=== PATIENT | female | born 1935 | race Caucasian/White ===

== ENCOUNTER 2017-01-08 11:26 | Emergency (ER) | payer MEDICARE, BC ==
[2017-01-08] MEDS ORDERED: Sodium Chloride 0.9% 10 ML Syringe FLUSH PRN (11:59)
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
[2017-01-08 14:05] VITALS: BP 135/60
--- NOTE | 2017-01-10 10:33 | CR ---
Chest: Portable view of the chest was obtained. Comparison: Previous chest x-ray of 04/14/16. Heart size and mediastinum are within normal limits for portable technique. No acute infiltrates are seen. Mild scoliosis is noted within the spine. Mild degenerative change is also scattered within the spine. Impression: 1. Incidental findings. Nothing acute is identified on portable chest x-ray. Diagnostic code #2
--- NOTE | 2017-01-10 10:33 | CT ---
CT cervical spine Technique: Multiple axial sections were obtained from above C1 inferiorly to the bottom of T2. Reconstructed sagittal and coronal images were reviewed. Findings: Diffuse disc space narrowing seen throughout the cervical spine. Mild spondylolisthesis noted at C6-C7 compatible with degenerative apophyseal change. Other degenerative apophyseal changes scattered throughout the cervical spine. Mild diffuse posterior and anterior osteophytes are seen. Incidental degenerative disc calcification noted at C2-C3, C3-C4 and C4-C5. Posterior skull base appears intact. Mild degenerative change noted between the dens and anterior arch of C1. Moderate to severe neural foraminal stenosis seen on both sides at C3-C4. Mild left-sided neural foraminal stenosis noted at C4-C5 with moderate right-sided neural foraminal stenosis noted at C4-C5. Moderate right-sided neural foraminal stenosis noted at C5-C6. Mild bilateral neural foraminal stenosis noted at C6-C7. Other neural foramina are felt to be fairly well patent. Vertebral bodies and posterior arches show no fracture. Impression: 1. Degenerative change as noted above. No acute abnormality is identified on CT study of the cervical spine. Diagnostic code #2 I agree with preliminary report issued by [employer] (preliminary report dictated on 01/08/17, 1:50 PM Central Time)
--- NOTE | 2017-01-10 10:33 | CT ---
Head CT Technique: Multiple axial sections through the brain were obtained. Intravenous contrast was not utilized. Comparison: No previous intracranial imaging. Findings: Ventricles along with basal cisterns and sulci over the convexities are mildly prominent. 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 No other abnormal parenchymal densities are seen. No evidence of intracranial hemorrhage. No midline shift or mass effect is seen. Atherosclerotic change is noted within the carotid siphon and vertebral vessels. Visualized sinuses are clear. No acute calvarial abnormality is seen. Impression: 1. Senescent change as described above. No acute intracranial abnormality is identified on noncontrast head CT study. Diagnostic code #2 I agree with preliminary report issued by [employer] (preliminary report dictated on 01/08/17, 1:48 PM Central Time)
== END 2017-01-08 14:00 | disposition home or self-care (01) ==
LOC: JD.ED 11:26
DX: R42 Dizziness and giddiness (principal); N39.0 Urinary tract infection, site not specified; E78.00 Pure hypercholesterolemia, unspecified; I25.2 Old myocardial infarction; I10 Essential (primary) hypertension; J45.909 Unspecified asthma, uncomplicated; F41.9 Anxiety disorder, unspecified; Z91.018 Allergy to other foods; Z88.8 Allergy status to other drugs, medicaments and biological substances; Z79.82 Long term (current) use of aspirin; Z79.899 Other long term (current) drug therapy
CPT/HCPCS: 36415; 70450; 71010; 72125; 80053; 81001; 84484; 85025; 87086; 93005; 99285; J7050; 99284

== ENCOUNTER 2017-11-18 15:15 | Inpatient (IN) | payer MEDICARE, BC ==
[2017-11-18] MEDS ORDERED: Benzonatate 100 MG Cap PO ONE (16:14)
[2017-11-18] MEDS ORDERED: Doxycycline 100 MG Cap PO ONE (16:14)
[2017-11-18] MEDS ORDERED: Dexamethasone 4 MG/ML 5 ML MDV IV ONE (16:14)
--- NOTE | 2017-11-18 16:15 | EDM.PDOC ---
ED HPI GENERAL MEDICAL PROBLEM - General Chief Complaint: Respiratory Problem Stated Complaint: TROUBLE BREATHING Time Seen by Provider: 11/18/17 15:24 Source of Information: Reports: Patient History Limitations: Reports: No Limitations - History of Present Illness INITIAL COMMENTS - FREE TEXT/NARRATIVE: 82 y/o F with hx asthma presents from clinic with cough/SOB/hypoxia. Daughter states she's been ill for at least 2 weeks with cough. Just isn't getting better. Has been using albuterol at home but now is out of it. No known fever. She feels generally weak. Shortness of breath worse with activity. Has dry cough. No chest pain. Mild rhinorrhea. No sore throat. No abd pain/vomiting/ diarrhea. No known sick contacts. Was seen at clinic and noted to be hypoxic with room air SpO2 in 80's. Given duonebs with improvement but was persistently hyopxic so sent here. 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: Reports: Other (see below) Other 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: duoneb at clinic - Related Data Allergies Allergy/AdvReac Type Severity Reaction Status Date / Time latex Allergy Rash Verified 01/08/17 11:43 wheat Allergy Other Verified 01/08/17 11:43 atorvastatin calcium AdvReac Muscle Verified 01/08/17 11:43 [From Lipitor] Aches doxycycline AdvReac Vomiting Verified 01/08/17 11:43 rosuvastatin calcium AdvReac Muscle Verified 01/08/17 11:43 [From Crestor] Aches simvastatin [From Zocor] AdvReac Muscle Verified 01/08/17 11:43 Aches Home Meds: Home Meds Aspirin [Low Dose Aspirin EC] 81 mg PO DAILY 02/27/14 [History] Denosumab [Prolia] 60 mg SQ ASDIRECTED 02/27/14 [History] Ubidecarenone [Coenzyme Q10] 100 mg PO DAILY 02/27/14 [History] Cholecalciferol (Vitamin D3) [Vitamin D3] 1,000 units PO DAILY 10/11/14 [History ] Acetaminophen 1,500 mg PO DAILY PRN 03/28/15 [History] Vitamin B Complex [B Complex] 1 mg PO DAILY 03/28/15 [History] Multivitamins,Therapeutic [Thera] 1 each PO WITHBREAKFAST tablet 04/03/15 [Rx] Ibuprofen 400 mg PO Q6H PRN 01/08/17 [History] Vitamin A Palmitate [Vitamin A] 4,000 unit PO DAILY 01/08/17 [History] Albuterol [Ventolin HFA] 2 puff INH Q4H PRN 11/18/17 [History] Benzonatate [Tessalon Perle] 100 mg PO TID PRN 11/18/17 [History] Calcium Carbonate [Calcium] 600 mg PO DAILY 11/18/17 [History] Fish Oil/[place]fe[place]-3 Fatty Acids [Fish Oil 1,000 MG] 1 each PO DAILY 11/18/17 [ History] Gabapentin [Neurontin] 300 mg PO BID 11/18/17 [History] Losartan Potassium 50 mg PO DAILY 11/18/17 [History] Nitroglycerin 0.4 mg SL ASDIRECTED PRN 11/18/17 [History] Primidone [Mysoline] 100 mg PO BID 11/18/17 [History] Past Medical History HEENT History: Reports: Cataract Other HEENT History: needs glasses for reading Cardiovascular History: Reports: High Cholesterol, Hypertension, SD Other Cardiovascular History: with stents Respiratory History: Reports: Asthma, Pneumonia, Recurrent, Sleep Apnea, Other ( See Below) Other Respiratory History: does not use any c-pap at home Gastrointestinal History: Reports: Chronic Constipation Other Gastrointestinal History: stool softener and laxative she takes at home bid 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 Neurological History: Reports: Other (See Below) Other Neuro History: pt states she has tremors Psychiatric History: Reports: Anxiety Other Hematologic History: SPLEEN REMOVED IN 1989 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 Other Oncologic History: SKIN CA ON NECK Other Dermatologic History: itchy bumps on skin. Pt thinks it is dermatitis - Infectious Disease History Infectious Disease History: Reports: Measles - Past Surgical History HEENT Surgical History: Reports: Cataract Surgery Cardiovascular Surgical History: Reports: Other (See Below) Musculoskeletal Surgical History: Reports: Knee Replacement Social & Family History - Family History Family Medical History: Noncontributory - Tobacco Use Smoking Status *Q: Never Smoker Second Hand Smoke Exposure: No - Caffeine Use Caffeine Use: Reports: Coffee, Tea Other Caffeine Use: decaff - Recreational Drug Use Recreational Drug Use: No ED ROS GENERAL - Review of Systems Review Of Systems: See Below Constitutional: Reports: Malaise, Weakness, Fatigue. Denies: Fever HEENT: Reports: Rhinitis Respiratory: Reports: Shortness of Breath, Cough Cardiovascular: Denies: Chest Pain Endocrine: Reports: No Symptoms GI/Abdominal: Denies: Abdominal Pain : Reports: No Symptoms Musculoskeletal: Reports: No Symptoms Skin: Reports: No Symptoms Neurological: Reports: No Symptoms ED EXAM, GENERAL - Physical Exam Exam: See Below Exam Limited By: No Limitations General Appearance: Alert, WD/WN, No Apparent Distress Eye Exam: Bilateral Eye: Normal Inspection, PERRL Ears: Normal External Exam Nose: Normal Inspection Throat/Mouth: Normal Inspection, Normal Oropharynx, Normal Voice, No Airway Compromise Head: Atraumatic, Normocephalic Neck: Normal Inspection, Supple Respiratory/Chest: No Respiratory Distress, Lungs Clear, Normal Breath Sounds, No Accessory Muscle Use, Chest Non-Tender, Other (+dry cough ) Cardiovascular: Normal Peripheral Pulses, Regular Rate, Rhythm, No Murmur GI/Abdominal: Soft, Non-Tender, No Distention. No: Rebound Back Exam: Normal Inspection Extremities: Normal Inspection. No: Pedal Edema Neurological: Alert, Oriented, Normal Cognition Psychiatric: Normal Affect, Normal Mood Skin Exam: Warm, Dry, Intact, Normal Color, No Rash Course - Vital Signs Last Recorded V/S: Last Vital Signs Temp 38.0 C 11/18/17 19:08 Pulse 79 11/18/17 19:00 Resp 22 H 11/18/17 19:00 BP 176/76 H 11/18/17 15:28 Pulse Ox 94 L 11/18/17 19:00 - Orders/Labs/Meds Orders: Active Orders 24 hr Category Date Time Status EKG Documentation Completion [RC] ASDIRECTED Care 11/18/17 15:37 Active Chest 1V Frontal [CR] Stat Exams 11/18/17 16:05 Taken UA W/MICROSCOPIC [URIN] Stat Lab 11/18/17 18:45 Results Potassium Chloride [KCl 10 MEQ in Water 100 ML] 10 meq Med 11/18/17 17:30 Active Premix Bag 1 bag IV Q1H EKG 12 Lead [EK] Stat Ther 11/18/17 15:37 Ordered Medication Orders Potassium Chloride 10 meq/ (Premix) 100 mls @ 100 mls/hr IV Q1H ROBE Stop: 11/18/17 21:29 Last Admin: 11/18/17 19:08 Dose: 75 mls/hr Infusion: 11/18/17 18:56 Dose: 75 mls/hr Infusion: 11/18/17 17:46 Dose: 75 mls/hr Admin: 11/18/17 17:38 Dose: 100 mls/hr Labs: Laboratory Tests 11/18/17 11/18/17 11/18/17 Range/Units 15:40 15:40 15:40 WBC 10.06 H (3.98-10.04) K/mm3 RBC 4.34 (3.98-5.22) M/mm3 Hgb 13.0 (11.2-15.7) gm/L Hct 39.4 (34.1-44.9) % MCV 90.8 (79.4-94.8) fl MCH 30.0 (25.6-32.2) pg MCHC 33.0 (32.2-35.5) g/dl RDW Std Deviation 48.2 H (36.4-46.3) fL Plt Count 265 (182-369) K/mm3 MPV 10.8 (9.4-12.3) fl Neut % (Auto) 14.0 L (34.0-71.1) % Lymph % (Auto) 33.2 (19.3-51.7) % [place] % (Auto) 50.6 H (4.7-12.5) % Eos % (Auto) 1.7 (0.7-5.8) Baso % (Auto) 0.3 (0.1-1.2) % Neut # (Auto) 1.41 L (1.56-6.13) K/mm3 Lymph # (Auto) 3.34 (1.18-3.74) K/mm3 [place] # (Auto) 5.09 H (0.24-0.36) K/mm3 Eos # (Auto) 0.17 (0.04-0.36) K/mm3 Baso # (Auto) 0.03 (0.01-0.08) K/mm3 Manual Slide Review Abnormal smear Sodium 132 L (136-145) mEq/L Potassium 2.6 L (3.5-5.1) mEq/L Chloride 92 L (98-107) mEq/L Carbon Dioxide 28 (21-32) mEq/L Anion Gap 14.6 (5-15) BUN 8 (7-18) mg/dL Creatinine 0.6 (0.55-1.02) mg/dL Est Cr Clr Drug Dosing 51.03 mL/min Estimated GFR (MDRD) > 60 (>60) mL/min BUN/Creatinine Ratio 13.3 L (14-18) Glucose 111 (83-115) mg/dL Calcium 8.9 (8.5-10.1) mg/dL Magnesium 1.8 (1.8-2.4) mg/dl Total Bilirubin 0.2 (0.2-1.0) mg/dL AST 28 (15-37) U/L ALT 33 (14-59) U/L Alkaline Phosphatase 68 (46-116) U/L Troponin I < 0.017 (0.00-0.056) ng/mL Total Protein 7.7 (6.4-8.2) g/dl Albumin 3.6 (3.4-5.0) g/dl Globulin 4.1 gm/dL Albumin/Globulin Ratio 0.9 L (1-2) Urine Color (Yellow) Urine Appearance (Clear) Urine pH (5.0-8.0) Ur Specific [place] (1.005-1.030) Urine Protein (Negative) Urine Glucose (UA) (Negative) Urine Ketones (Negative) Urine Occult Blood (Negative) Urine Nitrite (Negative) Urine Bilirubin (Negative) Urine Urobilinogen (0.2-1.0) Ur Leukocyte Esterase (Negative) 11/18/17 Range/Units 18:45 WBC (3.98-10.04) K/mm3 RBC (3.98-5.22) M/mm3 Hgb (11.2-15.7) gm/L Hct (34.1-44.9) % MCV (79.4-94.8) fl MCH (25.6-32.2) pg MCHC (32.2-35.5) g/dl RDW Std Deviation (36.4-46.3) fL Plt Count (182-369) K/mm3 MPV (9.4-12.3) fl Neut % (Auto) (34.0-71.1) % Lymph % (Auto) (19.3-51.7) % [place] % (Auto) (4.7-12.5) % Eos % (Auto) (0.7-5.8) Baso % (Auto) (0.1-1.2) % Neut # (Auto) (1.56-6.13) K/mm3 Lymph # (Auto) (1.18-3.74) K/mm3 [place] # (Auto) (0.24-0.36) K/mm3 Eos # (Auto) (0.04-0.36) K/mm3 Baso # (Auto) (0.01-0.08) K/mm3 Manual Slide Review Sodium (136-145) mEq/L Potassium (3.5-5.1) mEq/L Chloride (98-107) mEq/L Carbon Dioxide (21-32) mEq/L Anion Gap (5-15) BUN (7-18) mg/dL Creatinine (0.55-1.02) mg/dL Est Cr Clr Drug Dosing mL/min Estimated GFR (MDRD) (>60) mL/min BUN/Creatinine Ratio (14-18) Glucose (83-115) mg/dL Calcium (8.5-10.1) mg/dL Magnesium (1.8-2.4) mg/dl Total Bilirubin (0.2-1.0) mg/dL AST (15-37) U/L ALT (14-59) U/L Alkaline Phosphatase (46-116) U/L Troponin I (0.00-0.056) ng/mL Total Protein (6.4-8.2) g/dl Albumin (3.4-5.0) g/dl Globulin gm/dL Albumin/Globulin Ratio (1-2) Urine Color Yellow (Yellow) Urine Appearance Clear (Clear) Urine pH 6.0 (5.0-8.0) Ur Specific [place] 1.010 (1.005-1.030) Urine Protein Negative (Negative) Urine Glucose (UA) Negative (Negative) Urine Ketones 2+ H (Negative) Urine Occult Blood Negative (Negative) Urine Nitrite Negative (Negative) Urine Bilirubin Negative (Negative) Urine Urobilinogen 0.2 (0.2-1.0) Ur Leukocyte Esterase Negative (Negative) Meds: Medications Generic Name Dose Route Start Last Admin Trade Name Freq PRN Reason Stop Dose Admin Potassium Chloride 10 meq/ 100 mls @ 100 mls/hr 11/18/17 17:30 11/18/17 19:08 Premix IV 11/18/17 21:29 75 mls/hr Q1H ROBE Administration Discontinued Medications Generic Name Dose Route Start Last Admin Trade Name Alexa PRN Reason Stop Dose Admin Benzonatate 200 mg 11/18/17 16:14 11/18/17 16:23 Tessalon Perles PO 11/18/17 16:15 200 mg ONETIME ONE Administration Dexamethasone 10 mg 11/18/17 16:14 11/18/17 16:23 Dexamethasone IV 11/18/17 16:15 10 mg ONETIME ONE Administration Doxycycline Hyclate 100 mg 11/18/17 16:14 11/18/17 16:23 Vibramycin PO 11/18/17 16:15 100 mg ONETIME ONE Administration Ibuprofen 600 mg 11/18/17 19:00 11/18/17 19:08 Motrin PO 11/18/17 19:01 600 mg ONETIME ONE Administration Potassium Chloride 40 meq 11/18/17 17:17 11/18/17 17:38 Klor-Con M20 PO 11/18/17 17:18 40 meq ONETIME ONE Administration - Re-Assessments/Exams Free Text/Narrative Re-Assessment/Exam: 11/18/17 16:35 Reportedly hypoxic in clinic but SpO2 here in low 90's on RA. No distress. Suspect bronchitis given duration and severity of symptoms, provoking asthma exacerbation. Will give doxycycline and steroids and reeval after labs/xr. XR shows increased haziness at R base, atelectasis vs. early pneumonia. Will treat with antibiotics given symptoms. EKG shows NSR with no significant ST/T abnormality. 11/18/17 19:[address] Vázquez who agrees to admit the patient. Departure - Departure Time of Disposition: 19:28 Disposition: Admitted As Inpatient 65 Clinical Impression: Acute hypoxemic respiratory failure, Influenza B, Hypokalemia Asthma exacerbation Qualifiers: Asthma severity: mild Asthma persistence: intermittent Qualified Code(s): J45.21 - Mild intermittent asthma with (acute) exacerbation - Discharge Information Referrals: PCP,Unknown [Primary Care Provider] - Forms: ED Department Discharge - My Orders Last 24 Hours: My Active Orders 11/18/17 15:37 EKG Documentation Completion [RC] ASDIRECTED EKG 12 Lead [EK] Stat 11/18/17 16:05 Chest 1V Frontal [CR] Stat 11/18/17 17:30 Potassium Chloride [KCl 10 MEQ in Water 100 ML] 10 meq Premix Bag 1 bag IV Q1H 11/18/17 18:45 UA W/MICROSCOPIC [URIN] Stat - Assessment/Plan Last 24 Hours: My Active Orders 11/18/17 15:37 EKG Documentation Completion [RC] ASDIRECTED EKG 12 Lead [EK] Stat 11/18/17 16:05 Chest 1V Frontal [CR] Stat 11/18/17 17:30 Potassium Chloride [KCl 10 MEQ in Water 100 ML] 10 meq Premix Bag 1 bag IV Q1H 11/18/17 18:45 UA W/MICROSCOPIC [URIN] Stat
[2017-11-18] MEDS ORDERED: Potassium Chloride 20 MEQ Tab.ER PO ONE (17:17)
[2017-11-18] MEDS: Potassium Chloride 10 MEQ in Premix Bag 1 BAG IV SCH ×4 (17:38→23:29)
[2017-11-18] MEDS ORDERED: Ibuprofen 600 MG Tab PO ONE (19:00)
[2017-11-18] MEDS ORDERED: Polyethylene Glycol 3350 Powder 17 GM Packet PO PRN (19:21)
[2017-11-18] MEDS ORDERED: Acetaminophen/HYDROcodone 325-5 MG Tab PO PRN (19:21)
[2017-11-18] MEDS ORDERED: Docusate Sodium 100 MG Cap PO PRN (19:21)
[2017-11-18] MEDS ORDERED: Metoprolol Tartrate 5 MG/5 ML SDV IVPUSH PRN (19:21)
[2017-11-18] MEDS ORDERED: LORazepam 2 MG/ML SDV IVPUSH PRN (19:21)
[2017-11-18] MEDS ORDERED: Ondansetron 4 MG/2 ML SDV IV PRN (19:21)
[2017-11-18] MEDS ORDERED: Albuterol/Ipratropium 3.0-0.5 MG/3 ML Neb Soln NEB PRN (19:21)
[2017-11-18] MEDS ORDERED: Promethazine 6.25 MG in Sodium Chloride 0.9% 50 ML IV PRN (19:21)
[2017-11-18] MEDS ORDERED: HYDROmorphone 1 MG/ML Syringe IVPUSH PRN (19:21)
[2017-11-18] MEDS ORDERED: Azithromycin 500 MG in Sodium Chloride 0.9% 250 ML IV ONE (19:28)
[2017-11-18] MEDS ORDERED: Denosumab 60 MG/1 ML Syringe SUBCUT SCH (19:30)
--- NOTE | 2017-11-18 19:45 | PCM.HP ---
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 However per ED notes, these have been going on for 2 weeks now. She reports sick contact in the family with her . She denies any fevers or chills but feels weak. Her symptoms are aggravated by activity. At the clinic she was found with low O2 sat on room air in the 80s. She received initial treatment but her hypoxia did not improve. Therefore she was sent over here to the emergency department for further evaluation. Her initial workup in ED shows a CBC remarkable for WBC of 10.6, RDW of 48.2, neutrophils of 14% and monocytes of 50.6%. Her chemistry is remarkable for sodium of 132, potassium of 2.6, and chloride of 92. Her UA is negative for UTI. Her chest x-ray shows increased opacification at the right base. Her influenza screening is positive for type B. Patient is being admitted for treatment of acute viral illness and lingering bronchitis. She is CPR only. - Related Data Allergies/Adverse Reactions: Allergies Allergy/AdvReac Type Severity Reaction Status Date / Time latex Allergy Rash Verified 11/19/17 01:34 wheat Allergy Other Verified 11/19/17 01:34 atorvastatin calcium AdvReac Muscle Verified 11/19/17 01:34 [From Lipitor] Aches doxycycline AdvReac Vomiting Verified 11/19/17 01:34 rosuvastatin calcium AdvReac Muscle Verified 11/19/17 01:34 [From Crestor] Aches simvastatin [From Zocor] AdvReac Muscle Verified 11/19/17 01:34 Aches Home Medications: Home Meds Aspirin [Low Dose Aspirin EC] 81 mg PO DAILY 02/27/14 [History] Denosumab [Prolia] 60 mg SQ ASDIRECTED 02/27/14 [History] Ubidecarenone [Coenzyme Q10] 100 mg PO DAILY 02/27/14 [History] Cholecalciferol (Vitamin D3) [Vitamin D3] 1,000 units PO DAILY 10/11/14 [History ] Acetaminophen 1,500 mg PO DAILY PRN 03/28/15 [History] Vitamin B Complex [B Complex] 1 mg PO DAILY 03/28/15 [History] Multivitamins,Therapeutic [Thera] 1 each PO WITHBREAKFAST tablet 04/03/15 [Rx] Ibuprofen 400 mg PO Q6H PRN 01/08/17 [History] Vitamin A Palmitate [Vitamin A] 4,000 unit PO DAILY 01/08/17 [History] Albuterol [Ventolin HFA] 2 puff INH Q4H PRN 11/18/17 [History] Benzonatate [Tessalon Perle] 100 mg PO TID PRN 11/18/17 [History] Calcium Carbonate [Calcium] 600 mg PO DAILY 11/18/17 [History] Fish Oil/[place]-3 Fatty Acids [Fish Oil 1,000 MG] 1 each PO DAILY 11/18/17 [ History] Gabapentin [Neurontin] 300 mg PO BID 11/18/17 [History] Losartan Potassium 50 mg PO DAILY 11/18/17 [History] Nitroglycerin 0.4 mg SL ASDIRECTED PRN 11/18/17 [History] Primidone [Mysoline] 100 mg PO BID 11/18/17 [History] Past Medical History HEENT History: Reports: Cataract Other HEENT History: needs glasses for reading Cardiovascular History: Reports: High Cholesterol, Hypertension, DE Other Cardiovascular History: with stents Respiratory History: Reports: Asthma, Pneumonia, Recurrent, Sleep Apnea, Other ( See Below) Other Respiratory History: does not use any c-pap at home Gastrointestinal History: Reports: Chronic Constipation Other Gastrointestinal History: stool softener and laxative she takes at home bid Other Genitourinary History: 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 Neurological History: Reports: Other (See Below) Other Neuro History: pt states she has tremors Psychiatric History: Reports: Anxiety Other Hematologic History: SPLEEN REMOVED IN 1989 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 Other Oncologic History: SKIN CA ON NECK Other Dermatologic History: itchy bumps on skin. Pt thinks it is dermatitis - Infectious Disease History Infectious Disease History: Reports: Measles - Past Surgical History HEENT Surgical History: Reports: Cataract Surgery Cardiovascular Surgical History: Reports: Other (See Below) Musculoskeletal Surgical History: Reports: Knee Replacement Social & Family History - Family History Family Medical History: Noncontributory - Tobacco Use Smoking Status *Q: Never Smoker Second Hand Smoke Exposure: No - Caffeine Use Caffeine Use: Reports: Coffee, Tea Other Caffeine Use: decaff - Recreational Drug Use Recreational Drug Use: No H&P Review of Systems - Review of Systems: Review Of Systems: See Below General: Reports: Malaise, Weakness, Fatigue. Denies: Fever, Chills HEENT: Reports: Rhinitis. Denies: Headaches, Hearing Changes, Post Nasal Drip, Sinus Congestion, Sore Throat, Visual Changes Pulmonary: Reports: Shortness of Breath, Cough. Denies: Wheezing, Pleuritic Chest Pain, Sputum Cardiovascular: Denies: Chest Pain, Palpitations, Dyspnea on Exertion, Lightheadedness Gastrointestinal: Reports: Flatus. Denies: Abdominal Pain, Constipation, Diarrhea, Decreased Appetite, Difficulty Swallowing, Nausea, Vomiting Genitourinary: Reports: No Symptoms Musculoskeletal: Reports: No Symptoms Skin: Denies: Cyanosis, Jaundice, Mottled, Pallor, Diaphoresis, Bruising, Pruritis, Rash, Erythema, Change in Color Psychiatric: Denies: Confusion, Depression, Anxiety, Agitation, Hallucinations, Suicidal Ideation Neurological: Reports: Weakness. Denies: Dizziness, Headache, Numbness, Paresthesia, Seizure, Syncope, Tremors, Trouble Speaking, Difficulty Walking, Change in Speech, Gait Disturbance Hematologic/Lymphatic: Reports: No Symptoms Immunologic: Reports: No Symptoms Exam - Exam Exam: See Below - Vital Signs Vital Signs: Last Vital Signs Temp 38.0 C 11/18/17 19:08 Pulse 79 11/18/17 19:00 Resp 22 H 11/18/17 19:00 BP 176/76 H 11/18/17 15:28 Pulse Ox 94 L 11/18/17 19:00 Weight: 62.142 kg - Exam General: Alert, Oriented, Cooperative, Mild Distress HEENT: Conjunctiva Clear, EACs Clear, EOMI, Mucosa Moist & [place], Nares Patent, Posterior Pharynx Clear, Pupils Equal Neck: Supple, Trachea Midline, +2 Carotid Pulse wo Bruit Lungs: Clear to Auscultation, Normal Respiratory Effort Cardiovascular: Regular Rate, Regular Rhythm GI/Abdominal Exam: Normal Bowel Sounds, Soft, Non-Tender, No Organomegaly, No Distention, No Abnormal Bruit, No Mass (Female) Exam: Deferred Rectal (Female) Exam: Deferred Back Exam: Normal Inspection, Decreased Range of Motion Extremities: Normal Inspection, Normal Range of Motion, Non-Tender, No Pedal Edema, Normal Capillary Refill Peripheral Pulses: 2+: Dorsalis Pedis (L), Dorsalis Pedis (R) Skin: Warm, Dry, Intact Neuro Extensive - Mental Status: Oriented x3, Normal Cognition, Memory Intact Neuro Extensive - Motor, Sensory, Reflexes: CN II-XII Intact, Abnormal Gait, Tremor Psychiatric: Alert, Normal Affect, Normal Mood - Patient Data Lab Results Last 24 hrs: Laboratory Results - last 24 hr 11/18/17 11/18/17 11/18/17 Range/Units 15:40 15:40 15:40 WBC 10.06 H (3.98-10.04) K/mm3 RBC 4.34 (3.98-5.22) M/mm3 Hgb 13.0 (11.2-15.7) gm/L Hct 39.4 (34.1-44.9) % MCV 90.8 (79.4-94.8) fl MCH 30.0 (25.6-32.2) pg MCHC 33.0 (32.2-35.5) g/dl RDW Std Deviation 48.2 H (36.4-46.3) fL Plt Count 265 (182-369) K/mm3 MPV 10.8 (9.4-12.3) fl Neut % (Auto) 14.0 L (34.0-71.1) % Lymph % (Auto) 33.2 (19.3-51.7) % [place] % (Auto) 50.6 H (4.7-12.5) % Eos % (Auto) 1.7 (0.7-5.8) Baso % (Auto) 0.3 (0.1-1.2) % Neut # (Auto) 1.41 L (1.56-6.13) K/mm3 Lymph # (Auto) 3.34 (1.18-3.74) K/mm3 [place] # (Auto) 5.09 H (0.24-0.36) K/mm3 Eos # (Auto) 0.17 (0.04-0.36) K/mm3 Baso # (Auto) 0.03 (0.01-0.08) K/mm3 Manual Slide Review Abnormal smear Sodium 132 L (136-145) mEq/L Potassium 2.6 L (3.5-5.1) mEq/L Chloride 92 L (98-107) mEq/L Carbon Dioxide 28 (21-32) mEq/L Anion Gap 14.6 (5-15) BUN 8 (7-18) mg/dL Creatinine 0.6 (0.55-1.02) mg/dL Est Cr Clr Drug Dosing 51.03 mL/min Estimated GFR (MDRD) > 60 (>60) mL/min BUN/Creatinine Ratio 13.3 L (14-18) Glucose 111 (83-115) mg/dL Calcium 8.9 (8.5-10.1) mg/dL Magnesium 1.8 (1.8-2.4) mg/dl Total Bilirubin 0.2 (0.2-1.0) mg/dL AST 28 (15-37) U/L ALT 33 (14-59) U/L Alkaline Phosphatase 68 (46-116) U/L Troponin I < 0.017 (0.00-0.056) ng/mL Total Protein 7.7 (6.4-8.2) g/dl Albumin 3.6 (3.4-5.0) g/dl Globulin 4.1 gm/dL Albumin/Globulin Ratio 0.9 L (1-2) Urine Color (Yellow) Urine Appearance (Clear) Urine pH (5.0-8.0) Ur Specific [place] (1.005-1.030) Urine Protein (Negative) Urine Glucose (UA) (Negative) Urine Ketones (Negative) Urine Occult Blood (Negative) Urine Nitrite (Negative) Urine Bilirubin (Negative) Urine Urobilinogen (0.2-1.0) Ur Leukocyte Esterase (Negative) Urine RBC (0-5) /hpf Urine WBC (0-5) /hpf Ur Epithelial Cells (0-5) /hpf Urine Bacteria (FEW) /hpf Urine Mucus (FEW) /hpf 11/18/17 Range/Units 18:45 WBC (3.98-10.04) K/mm3 RBC (3.98-5.22) M/mm3 Hgb (11.2-15.7) gm/L Hct (34.1-44.9) % MCV (79.4-94.8) fl MCH (25.6-32.2) pg MCHC (32.2-35.5) g/dl RDW Std Deviation (36.4-46.3) fL Plt Count (182-369) K/mm3 MPV (9.4-12.3) fl Neut % (Auto) (34.0-71.1) % Lymph % (Auto) (19.3-51.7) % [place] % (Auto) (4.7-12.5) % Eos % (Auto) (0.7-5.8) Baso % (Auto) (0.1-1.2) % Neut # (Auto) (1.56-6.13) K/mm3 Lymph # (Auto) (1.18-3.74) K/mm3 [place] # (Auto) (0.24-0.36) K/mm3 Eos # (Auto) (0.04-0.36) K/mm3 Baso # (Auto) (0.01-0.08) K/mm3 Manual Slide Review Sodium (136-145) mEq/L Potassium (3.5-5.1) mEq/L Chloride (98-107) mEq/L Carbon Dioxide (21-32) mEq/L Anion Gap (5-15) BUN (7-18) mg/dL Creatinine (0.55-1.02) mg/dL Est Cr Clr Drug Dosing mL/min Estimated GFR (MDRD) (>60) mL/min BUN/Creatinine Ratio (14-18) Glucose (83-115) mg/dL Calcium (8.5-10.1) mg/dL Magnesium (1.8-2.4) mg/dl Total Bilirubin (0.2-1.0) mg/dL AST (15-37) U/L ALT (14-59) U/L Alkaline Phosphatase (46-116) U/L Troponin I (0.00-0.056) ng/mL Total Protein (6.4-8.2) g/dl Albumin (3.4-5.0) g/dl Globulin gm/dL Albumin/Globulin Ratio (1-2) Urine Color Yellow (Yellow) Urine Appearance Clear (Clear) Urine pH 6.0 (5.0-8.0) Ur Specific [place] 1.010 (1.005-1.030) Urine Protein Negative (Negative) Urine Glucose (UA) Negative (Negative) Urine Ketones 2+ H (Negative) Urine Occult Blood Negative (Negative) Urine Nitrite Negative (Negative) Urine Bilirubin Negative (Negative) Urine Urobilinogen 0.2 (0.2-1.0) Ur Leukocyte Esterase Negative (Negative) Urine RBC 0-5 (0-5) /hpf Urine WBC 0-5 (0-5) /hpf Ur Epithelial Cells 0-5 (0-5) /hpf Urine Bacteria Occasional (FEW) /hpf Urine Mucus Few (FEW) /hpf Result Diagrams: 11/19/17 05:43 11/19/17 05:43 [place] Results Last 24 hrs: Microbiology 11/18/17 16:10 Influenza Type A Antigen Screen - Final Nasopharyngeal Swab NEGATIVE INFLUENZA A VIRUS AG Influenza Type B Antigen Screen - Final Positive Influenza B Ag *Q Meaningful Use (ADM) - VTE *Q VTE Criteria *Q: - Stroke *Q Stroke Criteria *Q: - AMI *Q AMI Criteria *Q: Problem List Initiated/Reviewed/Updated: Yes Orders Last 24hrs: Active Orders 24 hr Category Date Time Status Antiembolic Devices [RC] PER UNIT ROUTINE Care 11/18/17 19:23 Active EKG Documentation Completion [RC] ASDIRECTED Care 11/18/17 15:37 Active Height and Weight [RC] DAILY Care 11/18/17 19:21 Active Intake and Output [RC] QSHIFT Care 11/18/17 19:22 Active Oxygen Therapy [RC] PRN Care 11/18/17 19:22 Active Pulse Oximetry [RC] PRN Care 11/18/17 19:22 Active RT Aerosol Therapy [RC] ASDIRECTED Care 11/18/17 19:24 Active Up With Assistance [RC] ASDIRECTED Care 11/18/17 19:21 Active VTE/DVT Education [RC] PER UNIT ROUTINE Care 11/18/17 19:22 Active Vital Signs [RC] Q4H Care 11/18/17 19:22 Active Consult to Case Management [CONS] Routine Cons 11/18/17 19:25 Active Consult to Top Collar Maker [CONS] Routine Cons 11/18/17 19:25 Active Consult to Spiritual Care [CONS] Routine Cons 11/18/17 19:25 Active OT Evaluation and Treatment [CONS] Routine Cons 11/18/17 19:25 Active PT Evaluation and Treatment [CONS] Routine Cons 11/18/17 19:25 Active Respiratory Care Assess and Treatment [CONS] Routine Cons 11/18/17 19:25 Active Regular Diet [DIET] Diet 11/18/17 Dinner Active Chest 1V Frontal [CR] Stat Exams 11/18/17 16:05 Taken BASIC METABOLIC PANEL,BMP [CHEM] AM Lab 11/19/17 05:11 Ordered BASIC METABOLIC PANEL,BMP [CHEM] AM Lab 11/20/17 05:11 Ordered BASIC METABOLIC PANEL,BMP [CHEM] AM Lab 11/21/17 05:11 Ordered BASIC METABOLIC PANEL,BMP [CHEM] AM Lab 11/22/17 05:11 Ordered BASIC METABOLIC PANEL,BMP [CHEM] AM Lab 11/23/17 05:11 Ordered C-REACTIVE PROTEIN [CHEM] AM Lab 11/19/17 05:11 Ordered C-REACTIVE PROTEIN [CHEM] AM Lab 11/20/17 05:11 Ordered C-REACTIVE PROTEIN [CHEM] AM Lab 11/21/17 05:11 Ordered C-REACTIVE PROTEIN [CHEM] AM Lab 11/22/17 05:11 Ordered C-REACTIVE PROTEIN [CHEM] AM Lab 11/23/17 05:11 Ordered CBC WITH AUTO DIFF [HEME] AM Lab 11/19/17 05:11 Ordered CBC WITH AUTO DIFF [HEME] AM Lab 11/20/17 05:11 Ordered CBC WITH AUTO DIFF [HEME] AM Lab 11/21/17 05:11 Ordered CBC WITH AUTO DIFF [HEME] AM Lab 11/22/17 05:11 Ordered CBC WITH AUTO DIFF [HEME] AM Lab 11/23/17 05:11 Ordered MAGNESIUM [CHEM] AM Lab 11/19/17 05:11 Ordered MAGNESIUM [CHEM] AM Lab 11/20/17 05:11 Ordered MAGNESIUM [CHEM] AM Lab 11/21/17 05:11 Ordered MAGNESIUM [CHEM] AM Lab 11/22/17 05:11 Ordered MAGNESIUM [CHEM] AM Lab 11/23/17 05:11 Ordered Acetaminophen Med 11/18/17 19:27 Ordered 1,500 mg PO DAILY PRN Acetaminophen [Tylenol] Med 11/18/17 19:21 Ordered 650 mg PO Q4H PRN Acetaminophen/HYDROcodone [[place] 325-5 MG] Med 11/18/17 19:21 Ordered 1 tab PO Q4H PRN Albuterol [Proventil Neb Soln] Med 11/19/17 08:00 Ordered 2.5 mg NEB [id number] Albuterol/Ipratropium [DuoNeb 3.0-0.5 MG/3 ML] Med 11/18/17 19:21 Ordered 3 ml NEB Q4H PRN Aspirin [Halfprin] Med 11/19/17 09:00 Ordered 81 mg PO DAILY Azithromycin [Zithromax] Med 11/19/17 09:00 Ordered 250 mg PO DAILY Azithromycin [Zithromax] 500 mg Med 11/18/17 19:28 Ordered Sodium Chloride 0.9% [Normal Saline] 250 ml IV ONETIME Benzonatate [Tessalon Perles] Med 11/18/17 19:27 Ordered 100 mg PO TID PRN Bisacodyl [Dulcolax] Med 11/18/17 19:21 Ordered 5 mg PO DAILY PRN Calcium Carbonate Med 11/19/17 09:00 Ordered 600 mg PO DAILY Cholecalciferol (Vitamin D3) [Vitamin D3] Med 11/19/17 09:00 Ordered 1,000 units PO DAILY Denosumab [Prolia] Med 11/18/17 19:30 Ordered 60 mg SUBCUT ASDIRECTED Dextrose 5%-0.45% NaCl [Dextrose 5%-1/2 NS] 1,000 ml Med 11/18/17 19:30 Ordered IV ASDIRECTED Docusate Sodium [Colace] Med 11/18/17 19:21 Ordered 100 mg PO BID PRN Docusate Sodium/Sennosides [Senna Plus] Med 11/18/17 19:21 Ordered 1 tab PO BID PRN Famotidine [Pepcid] Med 11/18/17 21:00 Ordered 20 mg PO BID Fish Oil/[place]-3 Fatty Acids [Fish Oil] Med 11/19/17 09:00 Ordered DOSE gm PO DAILY Gabapentin [Neurontin] Med 11/18/17 21:00 Ordered 300 mg PO BID HYDROmorphone [Dilaudid] Med 11/18/17 19:21 Ordered 0.25 mg IVPUSH Q4H PRN Ibuprofen [Ibuprofen] Med 11/18/17 19:27 Ordered 400 mg PO Q6H PRN LORazepam [Ativan] Med 11/18/17 19:21 Ordered 0.25 mg IV Q6H PRN LORazepam [Ativan] Med 11/18/17 19:21 Ordered 2 mg IVPUSH Q4H PRN Losartan Potassium Med 11/19/17 09:00 Ordered 50 mg PO DAILY Magnesium Rep Pharmacy to Dose [Pharmacy to Dose - Med 11/18/17 19:30 Ordered Magnesium Replacement] 1 dose .XX ASDIRECTED Metoprolol Tartrate [Lopressor] Med 11/18/17 19:21 Ordered 5 mg IVPUSH Q4H PRN Ondansetron [Zofran] Med 11/18/17 19:21 Ordered 4 mg IV Q6H PRN Oseltamivir [Tamiflu] Med 11/18/17 21:00 Ordered 75 mg PO BID Polyethylene Glycol 3350 [MiraLAX] Med 11/18/17 19:21 Ordered 17 gm PO DAILY PRN Potassium Chloride [KCl 10 MEQ in Water 100 ML] 10 meq Med 11/18/17 17:30 Active Premix Bag 1 bag IV Q1H Potassium Rep Pharmacy to Dose [Pharmacy to Dose - Med 11/18/17 19:30 Ordered Potassium Replacement] 1 dose .XX ASDIRECTED Promethazine [Phenergan] 6.25 mg Med 11/18/17 19:21 Ordered Sodium Chloride 0.9% [Normal Saline] 50 ml IV Q6H Temazepam [Restoril] Med 11/18/17 19:21 Ordered 7.5 mg PO BEDTIME PRN hydrALAZINE [Apresoline] Med 11/18/17 19:21 Ordered 10 mg IVPUSH Q4H PRN Sequential Compression Device [OM.PC] Per Unit Routine Oth 11/18/17 19:22 Ordered EKG 12 Lead [EK] Stat Ther 11/18/17 15:37 Ordered Medication Orders Acetaminophen (Tylenol) 650 mg PO Q4H PRN PRN Reason: Pain (Mild 1-3)/fever Hydrocodone Bitart/Acetaminophen ([place] 325-5 Mg) 1 tab PO Q4H PRN PRN Reason: Pain (moderate 4-6) Albuterol (Proventil Neb Soln) 2.5 mg NEB [id number] ROBE Albuterol/Ipratropium (Duoneb 3.0-0.5 Mg/3 Ml) 3 ml NEB Q4H PRN PRN Reason: Shortness Of Breath/wheezing Aspirin (Halfprin) 81 mg PO DAILY [facility] Azithromycin (Zithromax) 250 mg PO DAILY [facility] Benzonatate (Tessalon Perles) 100 mg PO TID PRN PRN Reason: Cough Bisacodyl (Dulcolax) 5 mg PO DAILY PRN PRN Reason: Constipation Calcium Carbonate/Glycine (Calcium Carbonate) 600 mg PO DAILY [facility] Denosumab (Prolia) 60 mg SUBCUT ASDIRECTED [facility] Docusate Sodium (Colace) 100 mg PO BID PRN PRN Reason: Constipation Famotidine (Pepcid) 20 mg PO BID [facility] Fish Oil (Fish Oil) gm PO DAILY [facility] Gabapentin (Neurontin) 300 mg PO BID [facility] Hydralazine HCl (Apresoline) 10 mg IVPUSH Q4H PRN PRN Reason: Hypertension Hydromorphone HCl (Dilaudid) 0.25 mg IVPUSH Q4H PRN PRN Reason: Pain (severe 7-10) Potassium Chloride 10 meq/ (Premix) 100 mls @ 100 mls/hr IV Q1H [facility] Stop: 11/18/17 21:29 Last Admin: 11/18/17 19:08 Dose: 75 mls/hr Infusion: 11/18/17 18:56 Dose: 75 mls/hr Infusion: 11/18/17 17:46 Dose: 75 mls/hr Admin: 11/18/17 17:38 Dose: 100 mls/hr Azithromycin 500 mg/ Sodium (Chloride) 250 mls @ 250 mls/hr IV ONETIME ONE Stop: 11/18/17 20:27 Dextrose/Sodium Chloride (Dextrose 5%-1/2 Ns) 1,000 mls @ 50 mls/hr IV ASDIRECTED [facility] Promethazine HCl 6.25 mg/ (Sodium Chloride) 50.25 mls @ 100 mls/hr IV Q6H PRN PRN Reason: Nausea/Vomiting Lorazepam (Ativan) 2 mg IVPUSH Q4H PRN PRN Reason: Seizures Lorazepam (Ativan) 0.25 mg IV Q6H PRN PRN Reason: Anxiety Magnesium Sulfate (Pharmacy To Dose - Magnesium Replacement) 1 dose .XX ASDIRECTED [facility] Metoprolol Tartrate (Lopressor) 5 mg IVPUSH Q4H PRN PRN Reason: Tachycardia Non-Formulary Medication (Acetaminophen) 1,500 mg PO DAILY PRN PRN Reason: Pain (severe 7-10) Non-Formulary Medication (Cholecalciferol (Vitamin D3) [Vitamin D3]) 1,000 units PO DAILY ROBE Non-Formulary Medication (Ibuprofen [Ibuprofen]) 400 mg PO Q6H PRN PRN Reason: Pain Non-Formulary Medication (Losartan Potassium) 50 mg PO DAILY [place] Ondansetron HCl (Zofran) 4 mg IV Q6H PRN PRN Reason: Nausea/Vomiting Oseltamivir Phosphate (Tamiflu) 75 mg PO BID [facility] Polyethylene Glycol (Miralax) 17 gm PO DAILY PRN PRN Reason: Constipation Potassium Chloride (Pharmacy To Dose - Potassium Replacement) 1 dose .XX ASDIRECTED [facility] Senna/Docusate Sodium (Senna Plus) 1 tab PO BID PRN PRN Reason: Constipation Temazepam (Restoril) 7.5 mg PO BEDTIME PRN PRN Reason: Sleep Assessment/Plan Comment:: Assessment/Plan: Acute: Viral Illness - 2/2 Influenza B positive - Her symptoms started Tuesday; she reports not treatment with Tamiflu - She needs anti-viral due to advanced age and co-morbid conditions - She has good GFR > 60 ml; Tamiflu 75 mg po BID for 5 days - Continue supportive Care and PRN Medications for symptomatic control Bronchitis with Hypoxia - Carries a hx/o Asthma/RAD - Likely 2/2 Above - Dry cough but feels like "it won't come out" - She was seen outpatient and treated for it - IV 500 mg Azithromycin x1 and oral 250 mg po daily in AM - Sputum Cx/Sx - Supportive Care and PRN Decongestant/Expectorant Leukocytosis - WBC 10.06 - 2/2 Above - Monitor Hypokalemia - K 2.6 - 2/2 inadequate intake - Replete and monitor Chronic: Impaired Vision HTN\\HLD Hx/o DE with stents Asthma/RAD 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
[2017-11-18] MEDS ORDERED: Acetaminophen 325 MG Tab PO PRN (19:48)
[2017-11-18] MEDS ORDERED: Magnesium Sulfate/Water 2 GM in Premix Bag 1 BAG IV ONE (20:00)
[2017-11-18] MEDS: Bisacodyl 5 MG Tab PO PRN (21:17)
[2017-11-18] MEDS: Gabapentin 300 MG Cap PO SCH (21:17)
[2017-11-18] MEDS: Famotidine 20 MG Tab PO SCH (21:18)
[2017-11-18] MEDS: Temazepam 7.5 MG Cap PO PRN (21:18)
[2017-11-18] MEDS: Dextrose 5%-0.45% NaCl 1,000 ML IV SCH (21:39)
--- NOTE | 2017-11-19 06:49 | PCM.PN ---
- General Info Date of Service: 11/19/17 Admission Dx/Problem (Free Text): Acute Viral Illness Subjective Update: Follow Up Functional Status: Reports: Pain Controlled, Tolerating Diet, Urinating. Denies : New Symptoms - Review of Systems General: Reports: Night Sweats. Denies: Fever, Weakness, Fatigue, Malaise, Chills HEENT: Denies: Contact Lenses Pulmonary: Reports: Cough. Denies: Shortness of Breath, Sputum Cardiovascular: Denies: Chest Pain, Palpitations, Dyspnea on Exertion, Edema, Lightheadedness Gastrointestinal: Reports: Flatus, Other (Abdominal bloating). Denies: Constipation, Decreased Appetite, Diarrhea, Difficulty Swallowing, Nausea, Vomiting Genitourinary: Reports: No Symptoms Musculoskeletal: Reports: No Symptoms Skin: Denies: Cyanosis, Jaundice, Mottled, Pallor, Diaphoresis, Pruritis, Rash Neurological: Reports: Tremors, Gait Disturbance. Denies: Pre-Existing Deficit , Difficulty Walking, Weakness Psychiatric: Denies: Depression, Anxiety, Agitation, Hallucinations - Patient Data Vitals - Most Recent: Last Vital Signs Temp 36.4 C 11/18/17 23:54 Pulse 65 11/18/17 23:54 Resp 19 11/18/17 23:54 BP 121/57 L 11/18/17 23:54 Pulse Ox 93 L 11/18/17 23:54 Weight - Most Recent: 62.142 kg I&O - Last 24 Hours: Intake & Output 11/18/17 11/18/17 11/19/17 14:59 22:59 06:59 Intake Total 300 Output Total 700 Balance -400 Lab Results Last 24 Hours: Laboratory Results - last 24 hr 11/19/17 11/19/17 Range/Units 05:43 05:43 WBC 5.53 (3.98-10.04) K/mm3 RBC 3.68 L (3.98-5.22) M/mm3 Hgb 11.3 (11.2-15.7) gm/L Hct 33.9 L (34.1-44.9) % MCV 92.1 (79.4-94.8) fl MCH 30.7 (25.6-32.2) pg MCHC 33.3 (32.2-35.5) g/dl RDW Std Deviation 48.5 H (36.4-46.3) fL Plt Count 248 (182-369) K/mm3 MPV 11.0 (9.4-12.3) fl Neut % (Auto) 11.5 L (34.0-71.1) % Lymph % (Auto) 38.2 (19.3-51.7) % [place] % (Auto) 49.5 H (4.7-12.5) % Eos % (Auto) 0.4 L (0.7-5.8) Baso % (Auto) 0.4 (0.1-1.2) % Neut # (Auto) 0.64 L (1.56-6.13) K/mm3 Lymph # (Auto) 2.11 (1.18-3.74) K/mm3 [place] # (Auto) 2.74 H (0.24-0.36) K/mm3 Eos # (Auto) 0.02 L (0.04-0.36) K/mm3 Baso # (Auto) 0.02 (0.01-0.08) K/mm3 Sodium 130 L (136-145) mEq/L Potassium 4.1 (3.5-5.1) mEq/L Chloride 96 L (98-107) mEq/L Carbon Dioxide 28 (21-32) mEq/L Anion Gap 10.1 (5-15) BUN 9 (7-18) mg/dL Creatinine 0.5 L (0.55-1.02) mg/dL Est Cr Clr Drug Dosing 61.23 mL/min Estimated GFR (MDRD) > 60 (>60) mL/min BUN/Creatinine Ratio 18.0 (14-18) Glucose 154 H (83-115) mg/dL Calcium 8.0 L (8.5-10.1) mg/dL Magnesium 2.1 (1.8-2.4) mg/dl C-Reactive Protein 2.3 H* (<1.0) mg/dL Med Orders - Current: Current Medications Acetaminophen (Tylenol) 650 mg PO Q4H PRN PRN Reason: Pain (Mild 1-3)/fever Acetaminophen (Tylenol) 1,300 mg PO DAILY PRN PRN Reason: Pain (severe 7-10) Hydrocodone Bitart/Acetaminophen ([place] 325-5 Mg) 1 tab PO Q4H PRN PRN Reason: Pain (moderate 4-6) Albuterol (Proventil Neb Soln) 2.5 mg NEB [id number] [facility] Albuterol/Ipratropium (Duoneb 3.0-0.5 Mg/3 Ml) 3 ml NEB Q4H PRN PRN Reason: Shortness Of Breath/wheezing Aspirin (Halfprin) 81 mg PO DAILY [facility] Azithromycin (Zithromax) 250 mg PO DAILY [facility] Benzonatate (Tessalon Perles) 100 mg PO TID PRN PRN Reason: Cough Bisacodyl (Dulcolax) 5 mg PO DAILY PRN PRN Reason: Constipation Last Admin: 11/18/17 21:17 Dose: 5 mg Calcium Carbonate/Glycine (Calcium Carbonate) 600 mg PO DAILY [facility] Cholecalciferol (Vitamin D3) 1,000 units PO DAILY [facility] Denosumab (Prolia) 60 mg SUBCUT ASDIRECTED [facility] Docusate Sodium (Colace) 100 mg PO BID PRN PRN Reason: Constipation Famotidine (Pepcid) 20 mg PO BID [facility] Last Admin: 11/18/17 21:18 Dose: 20 mg Fish Oil (Fish Oil) 1 gm PO DAILY [facility] Gabapentin (Neurontin) 300 mg PO BID [facility] Last Admin: 11/18/17 21:17 Dose: 300 mg Guaifenesin/Phenylephrine HCl (Robitussin Dm) 5 ml PO Q4H PRN PRN Reason: Cough Hydralazine HCl (Apresoline) 10 mg IVPUSH Q4H PRN PRN Reason: Hypertension Hydromorphone HCl (Dilaudid) 0.25 mg IVPUSH Q4H PRN PRN Reason: Pain (severe 7-10) Dextrose/Sodium Chloride (Dextrose 5%-1/2 Ns) 1,000 mls @ 50 mls/hr IV ASDIRECTED [facility] Last Admin: 11/18/17 21:39 Dose: 50 mls/hr Promethazine HCl 6.25 mg/ (Sodium Chloride) 50.25 mls @ 100 mls/hr IV Q6H PRN PRN Reason: Nausea/Vomiting Ibuprofen (Motrin) 400 mg PO Q6H PRN PRN Reason: Pain Lorazepam (Ativan) 2 mg IVPUSH Q4H PRN PRN Reason: Seizures Lorazepam (Ativan) 0.25 mg IV Q6H PRN PRN Reason: Anxiety Losartan Potassium (Cozaar) 50 mg PO DAILY [facility] Magnesium Sulfate (Pharmacy To Dose - Magnesium Replacement) 1 dose .XX ASDIRECTED [facility] Metoprolol Tartrate (Lopressor) 5 mg IVPUSH Q4H PRN PRN Reason: Tachycardia Ondansetron HCl (Zofran) 4 mg IV Q6H PRN PRN Reason: Nausea/Vomiting Oseltamivir Phosphate (Tamiflu) 75 mg PO BID [facility] Polyethylene Glycol (Miralax) 17 gm PO DAILY PRN PRN Reason: Constipation Potassium Chloride (Pharmacy To Dose - Potassium Replacement) 1 dose .XX ASDIRECTED [facility] Senna/Docusate Sodium (Senna Plus) 1 tab PO BID PRN PRN Reason: Constipation Temazepam (Restoril) 7.5 mg PO BEDTIME PRN PRN Reason: Sleep Last Admin: 11/18/17 21:18 Dose: 7.5 mg Discontinued Medications Benzonatate (Tessalon Perles) 200 mg PO ONETIME ONE Stop: 11/18/17 16:15 Last Admin: 11/18/17 16:23 Dose: 200 mg Dexamethasone (Dexamethasone) 10 mg IV ONETIME ONE Stop: 11/18/17 16:15 Last Admin: 11/18/17 16:23 Dose: 10 mg Doxycycline Hyclate (Vibramycin) 100 mg PO ONETIME ONE Stop: 11/18/17 16:15 Last Admin: 11/18/17 16:23 Dose: 100 mg Potassium Chloride 10 meq/ (Premix) 100 mls @ 100 mls/hr IV Q1H [facility] Stop: 11/18/17 21:29 Last Admin: 11/18/17 23:29 Dose: 75 mls/hr Azithromycin 500 mg/ Sodium (Chloride) 250 mls @ 250 mls/hr IV ONETIME ONE Stop: 11/18/17 20:27 Last Admin: 11/18/17 22:24 Dose: 250 mls/hr Magnesium Sulfate 2 gm/ Premix 50 mls @ 50 mls/hr IV ONETIME ONE Stop: 11/18/17 20:59 Last Admin: 11/18/17 21:42 Dose: 50 mls/hr Ibuprofen (Motrin) 600 mg PO ONETIME ONE Stop: 11/18/17 19:01 Last Admin: 11/18/17 19:08 Dose: 600 mg Potassium Chloride (Klor-Con M20) 40 meq PO ONETIME ONE Stop: 11/18/17 17:18 Last Admin: 11/18/17 17:38 Dose: 40 meq - Exam General: Alert, Cooperative, No Acute Distress HEENT: Pupils Equal, Pupils Reactive, EOMI, Mucous Membr. Moist/[place] Neck: Supple, Trachea Midline, No JVD, No Thyromegaly Lungs: Normal Respiratory Effort, Decreased Breath Sounds Cardiovascular: Regular Rate, Regular Rhythm GI/Abdominal Exam: Normal Bowel Sounds, Soft, Non-Tender, No Organomegaly, No Distention, No Abnormal Bruit, No Mass (Female) Exam: Deferred Back Exam: Normal Inspection, Decreased Range of Motion Extremities: Normal Inspection, Normal Range of Motion, Non-Tender, No Pedal Edema, Normal Capillary Refill Peripheral Pulses: 2+: Dorsalis Pedis (L), Dorsalis Pedis (R) Skin: Warm, Dry, Intact Neurological: No New Focal Deficit, Other (bilateral hand tremors) Psy/Mental Status: Alert, Normal Mood, Anxious. No: Agitated, Suicidal Ideation , Homicidal Ideation, Hallucinations, Withdrawal Symptoms - Problem List Review Problem List Initiated/Reviewed/Updated: Yes - My Orders Last 24 Hours: My Active Orders 11/18/17 05:50 RESPIRATORY PANEL BY PCR [MREF] Stat 11/18/17 18:45 STREP PNEUMONIAE ANTIGEN [MREF] Stat 11/18/17 21:58 Code Status [Resuscitation Status] Routine 11/18/17 22:19 Dextromethorphan/guaiFENesin [Robitussin DM] 5 ml PO Q4H PRN - Plan Plan:: Assessment/Plan: Acute: Viral Illness - 2/2 Influenza B positive - Her symptoms started Tuesday; she reports not treatment with Tamiflu - She needs anti-viral due to advanced age and co-morbid conditions - She has good GFR > 60 ml; pharmacy renally dosed to Tamiflu 30 mg po BID for 5 days - Continue supportive Care and PRN Medications for symptomatic control Bronchitis with Hypoxia - Carries a hx/o Asthma/RAD - Likely 2/2 Above - Dry cough but feels like "it won't come out" - She was seen outpatient and treated for it - Continue oral 250 mg po daily in AM - Sputum Cx/Sx-pending; Mycoplasma pneumonia Ag negative - Supportive Care and PRN Decongestant/Expectorant Resolved: Leukocytosis - WBC 10.06--> 5.53 - 2/2 Above - Monitor Hypokalemia - K 2.6--> 4.1 - 2/2 inadequate intake - Replete and monitor Chronic: Impaired Vision HTN\\HLD Hx/o [place] with stents Asthma/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
[2017-11-19] MEDS: Albuterol 0.083% 2.5 MG/3 ML Neb Soln NEB SCH ×2 (08:14→20:29)
[2017-11-19] MEDS: Cholecalciferol (Vitamin D3) 1,000 Unit Tab PO SCH (08:52)
[2017-11-19] MEDS: Azithromycin 250 MG Tab PO SCH (08:53)
[2017-11-19] MEDS: Calcium Carbonate 600 MG Tab PO SCH (08:53)
[2017-11-19] MEDS: Famotidine 20 MG Tab PO SCH ×2 (08:54→20:52)
[2017-11-19] MEDS: Aspirin 81 MG Tab.EC PO SCH (08:54)
[2017-11-19] MEDS: Gabapentin 300 MG Cap PO SCH ×2 (08:54→20:52)
[2017-11-19] MEDS: Losartan 25 MG Tab PO SCH (08:56)
[2017-11-19] MEDS: Fish Oil/Omega-3 Fatty Acids 1 Gm Cap PO SCH (08:57)
[2017-11-19] MEDS ORDERED: Oseltamivir 75 MG Cap PO SCH (09:00)
[2017-11-19] MEDS: LORazepam 2 MG/ML SDV IV PRN (09:06)
[2017-11-19] MEDS: Primidone 50 MG Tab PO SCH ×2 (09:21→20:51)
[2017-11-19] MEDS: Dextrose 5%-0.45% NaCl 1,000 ML IV SCH (09:57)
[2017-11-19] MEDS: hydrALAZINE 20 MG/ML SDV IVPUSH PRN (17:17)
[2017-11-19] MEDS: Oseltamivir 30 MG Cap PO SCH (20:52)
[2017-11-19] MEDS: ALPRAZolam 0.25 MG Tab PO SCH (20:52)
[2017-11-19] MEDS: Temazepam 7.5 MG Cap PO PRN (20:52)
[2017-11-19] MEDS: Acetaminophen 325 MG Tab PO PRN (21:15)
[2017-11-20] MEDS: Dextrose 5%-0.45% NaCl 1,000 ML IV SCH (05:52)
[2017-11-20] MEDS: hydrALAZINE 20 MG/ML SDV IVPUSH PRN (06:13)
--- NOTE | 2017-11-20 06:52 | PCM.PN ---
- General Info Date of Service: 11/20/17 Admission Dx/Problem (Free Text): Acute Viral Illness Subjective Update: Follow Up Functional Status: Reports: Pain Controlled, Tolerating Diet, Ambulating, Urinating. Denies: New Symptoms - Review of Systems General: Denies: Fever, Weakness, Fatigue, Malaise, Chills HEENT: Reports: No Symptoms Pulmonary: Reports: Cough. Denies: Shortness of Breath, Pleuritic Chest Pain, Sputum Cardiovascular: Denies: Chest Pain, Palpitations, Dyspnea on Exertion, Lightheadedness Gastrointestinal: Denies: Abdominal Pain, Difficulty Swallowing, Nausea, Vomiting Genitourinary: Reports: No Symptoms, Incontinence Musculoskeletal: Reports: No Symptoms Skin: Denies: Cyanosis, Jaundice, Mottled, Pallor, Diaphoresis Neurological: Reports: Tremors, Gait Disturbance. Denies: Confusion, Difficulty Walking, Weakness Psychiatric: Denies: Depression, Anxiety, Agitation, Hallucinations Systems Review Comment:: She slept good. She feels like she is getting better. Still coughing significantly. She is afebrile w/o leukocytosis. - Patient Data Vitals - Most Recent: Last Vital Signs Temp 36.9 C 11/20/17 05:53 Pulse 57 L 11/20/17 06:17 Resp 14 11/20/17 05:53 BP 161/108 H 11/20/17 06:17 Pulse Ox 94 L 11/20/17 06:17 Weight - Most Recent: 61.235 kg I&O - Last 24 Hours: Intake & Output 11/19/17 11/19/17 11/20/17 14:59 22:59 06:59 Intake Total 300 1325 686 Output Total 1300 Balance 300 25 686 Lab Results Last 24 Hours: Laboratory Results - last 24 hr 11/19/17 11/20/17 11/20/17 Range/Units 05:43 05:18 05:18 WBC 7.07 (3.98-10.04) K/mm3 RBC 3.65 L (3.98-5.22) M/mm3 Hgb 11.0 L (11.2-15.7) gm/L Hct 33.9 L (34.1-44.9) % MCV 92.9 (79.4-94.8) fl MCH 30.1 (25.6-32.2) pg MCHC 32.4 (32.2-35.5) g/dl RDW Std Deviation 49.3 H (36.4-46.3) fL Plt Count 230 (182-369) K/mm3 MPV 10.9 (9.4-12.3) fl Neut % (Auto) 11.6 L (34.0-71.1) % Lymph % (Auto) 48.7 (19.3-51.7) % [place] % (Auto) 37.5 H (4.7-12.5) % Eos % (Auto) 1.7 (0.7-5.8) Baso % (Auto) 0.4 (0.1-1.2) % Neut # (Auto) 0.82 L (1.56-6.13) K/mm3 Lymph # (Auto) 3.44 (1.18-3.74) K/mm3 [place] # (Auto) 2.65 H (0.24-0.36) K/mm3 Eos # (Auto) 0.12 (0.04-0.36) K/mm3 Baso # (Auto) 0.03 (0.01-0.08) K/mm3 Manual Slide Review Abnormal smear Abnormal smear Sodium 134 L (136-145) mEq/L Potassium 3.8 (3.5-5.1) mEq/L Chloride 101 (98-107) mEq/L Carbon Dioxide 27 (21-32) mEq/L Anion Gap 9.8 (5-15) BUN 6 L (7-18) mg/dL Creatinine 0.6 (0.55-1.02) mg/dL Est Cr Clr Drug Dosing 51.03 mL/min Estimated GFR (MDRD) > 60 (>60) mL/min BUN/Creatinine Ratio 10.0 L (14-18) Glucose 99 (83-115) mg/dL Calcium 8.3 L (8.5-10.1) mg/dL Magnesium 1.9 (1.8-2.4) mg/dl C-Reactive Protein 1.1 H* (<1.0) mg/dL Med Orders - Current: Current Medications Acetaminophen (Tylenol) 650 mg PO Q4H PRN PRN Reason: Pain (Mild 1-3)/fever Last Admin: 11/19/17 21:15 Dose: 650 mg Acetaminophen (Tylenol) 1,300 mg PO DAILY PRN PRN Reason: Pain (severe 7-10) Hydrocodone Bitart/Acetaminophen ([place] 325-5 Mg) 1 tab PO Q4H PRN PRN Reason: Pain (moderate 4-6) Albuterol (Proventil Neb Soln) 2.5 mg NEB [id number] [facility] Last Admin: 11/19/17 20:29 Dose: 2.5 mg Albuterol/Ipratropium (Duoneb 3.0-0.5 Mg/3 Ml) 3 ml NEB Q4H PRN PRN Reason: Shortness Of Breath/wheezing Alprazolam (Xanax) 0.25 mg PO BEDTIME [facility] Last Admin: 11/19/17 20:52 Dose: 0.25 mg Alprazolam (Xanax) 0.25 mg PO Q6H PRN PRN Reason: Anxiety Aspirin (Halfprin) 81 mg PO DAILY [facility] Last Admin: 11/19/17 08:54 Dose: 81 mg Azithromycin (Zithromax) 250 mg PO DAILY [facility] Last Admin: 11/19/17 08:53 Dose: 250 mg Benzonatate (Tessalon Perles) 100 mg PO TID PRN PRN Reason: Cough Bisacodyl (Dulcolax) 5 mg PO DAILY PRN PRN Reason: Constipation Last Admin: 11/18/17 21:17 Dose: 5 mg Calcium Carbonate/Glycine (Calcium Carbonate) 600 mg PO DAILY [facility] Last Admin: 11/19/17 08:53 Dose: 600 mg Cholecalciferol (Vitamin D3) 1,000 units PO DAILY [facility] Last Admin: 11/19/17 08:52 Dose: 1,000 units Docusate Sodium (Colace) 100 mg PO BID PRN PRN Reason: Constipation Famotidine (Pepcid) 20 mg PO BID [facility] Last Admin: 11/19/17 20:52 Dose: 20 mg Fish Oil (Fish Oil) 1 gm PO DAILY [facility] Last Admin: 11/19/17 08:57 Dose: 1 gm Gabapentin (Neurontin) 300 mg PO BID [facility] Last Admin: 11/19/17 20:52 Dose: 300 mg Guaifenesin/Phenylephrine HCl (Robitussin Dm) 5 ml PO Q4H PRN PRN Reason: Cough Hydralazine HCl (Apresoline) 10 mg IVPUSH Q4H PRN PRN Reason: Hypertension Last Admin: 11/20/17 06:13 Dose: 10 mg Hydromorphone HCl (Dilaudid) 0.25 mg IVPUSH Q4H PRN PRN Reason: Pain (severe 7-10) Dextrose/Sodium Chloride (Dextrose 5%-1/2 Ns) 1,000 mls @ 50 mls/hr IV ASDIRECTED [facility] Last Admin: 11/20/17 05:52 Dose: 50 mls/hr Promethazine HCl 6.25 mg/ (Sodium Chloride) 50.25 mls @ 100 mls/hr IV Q6H PRN PRN Reason: Nausea/Vomiting Ibuprofen (Motrin) 400 mg PO Q6H PRN PRN Reason: Pain Lorazepam (Ativan) 2 mg IVPUSH Q4H PRN PRN Reason: Seizures Lorazepam (Ativan) 0.25 mg IV Q6H PRN PRN Reason: Anxiety Last Admin: 11/19/17 09:06 Dose: 0.25 mg Losartan Potassium (Cozaar) 50 mg PO DAILY [facility] Last Admin: 11/19/17 08:56 Dose: 50 mg Magnesium Sulfate (Pharmacy To Dose - Magnesium Replacement) 1 dose .XX ASDIRECTED [facility] Metoprolol Tartrate (Lopressor) 5 mg IVPUSH Q4H PRN PRN Reason: Tachycardia Ondansetron HCl (Zofran) 4 mg IV Q6H PRN PRN Reason: Nausea/Vomiting Oseltamivir Phosphate (Tamiflu) 30 mg PO BID [facility] Stop: 11/23/17 21:01 Last Admin: 11/19/17 20:52 Dose: 30 mg Polyethylene Glycol (Miralax) 17 gm PO DAILY PRN PRN Reason: Constipation Potassium Chloride (Pharmacy To Dose - Potassium Replacement) 1 dose .XX ASDIRECTED [facility] Primidone (Mysoline) 100 mg PO BID [facility] Last Admin: 11/19/17 20:51 Dose: 100 mg Senna/Docusate Sodium (Senna Plus) 1 tab PO BID PRN PRN Reason: Constipation Temazepam (Restoril) 7.5 mg PO BEDTIME PRN PRN Reason: Sleep Last Admin: 11/19/17 20:52 Dose: 7.5 mg Discontinued Medications Benzonatate (Tessalon Perles) 200 mg PO ONETIME ONE Stop: 03/16/18 16:15 Last Admin: 11/18/17 16:23 Dose: 200 mg Denosumab (Prolia) 60 mg SUBCUT ASDIRECTED [facility] Dexamethasone (Dexamethasone) 10 mg IV ONETIME ONE Stop: 11/18/17 16:15 Last Admin: 11/18/17 16:23 Dose: 10 mg Doxycycline Hyclate (Vibramycin) 100 mg PO ONETIME ONE Stop: 11/18/17 16:15 Last Admin: 11/18/17 16:23 Dose: 100 mg Potassium Chloride 10 meq/ (Premix) 100 mls @ 100 mls/hr IV Q1H [facility] Stop: 11/18/17 21:29 Last Admin: 11/18/17 23:29 Dose: 75 mls/hr Azithromycin 500 mg/ Sodium (Chloride) 250 mls @ 250 mls/hr IV ONETIME ONE Stop: 11/18/17 20:27 Last Admin: 11/18/17 22:24 Dose: 250 mls/hr Magnesium Sulfate 2 gm/ Premix 50 mls @ 50 mls/hr IV ONETIME ONE Stop: 11/18/17 20:59 Last Admin: 11/18/17 21:42 Dose: 50 mls/hr Ibuprofen (Motrin) 600 mg PO ONETIME ONE Stop: 11/18/17 19:01 Last Admin: 11/18/17 19:08 Dose: 600 mg Oseltamivir Phosphate (Tamiflu) 75 mg PO BID [facility] Stop: 11/23/17 21:01 Last Admin: 11/19/17 08:55 Dose: 75 mg Potassium Chloride (Klor-Con M20) 40 meq PO ONETIME ONE Stop: 11/18/17 17:18 Last Admin: 11/18/17 17:38 Dose: 40 meq - Exam General: Alert, Oriented, Cooperative, No Acute Distress HEENT: Pupils Equal, Pupils Reactive, EOMI, Mucous Membr. Moist/[place] Neck: Supple, Trachea Midline, No JVD, No Thyromegaly Lungs: Normal Respiratory Effort, Decreased Breath Sounds Cardiovascular: Regular Rate, Regular Rhythm GI/Abdominal Exam: Normal Bowel Sounds, Soft, Non-Tender, No Organomegaly, No Distention, No Abnormal Bruit, No Mass (Female) Exam: Deferred Back Exam: Normal Inspection, Decreased Range of Motion Extremities: Normal Inspection, Normal Range of Motion, Non-Tender, No Pedal Edema, Normal Capillary Refill, Pedal Edema Peripheral Pulses: 2+: Dorsalis Pedis (L), Dorsalis Pedis (R) Skin: Warm, Dry, Intact Neurological: No New Focal Deficit Psy/Mental Status: Alert, Normal Affect, Normal Mood - Problem List Review Problem List Initiated/Reviewed/Updated: Yes - My Orders Last 24 Hours: My Active Orders 11/19/17 09:15 Primidone [Mysoline] 100 mg PO BID 11/19/17 09:16 ALPRAZolam [Xanax] 0.25 mg PO Q6H PRN 11/19/17 21:00 ALPRAZolam [Xanax] 0.25 mg PO BEDTIME Oseltamivir [Tamiflu] 30 mg PO BID - Plan Plan:: Assessment/Plan: Acute: Viral Illness, Continues to Improve - 2/2 Influenza B positive - Her symptoms started Tuesday; she reports not treatment with Tamiflu - She needs anti-viral due to advanced age and co-morbid conditions - She has good GFR > 60 ml; pharmacy renally dosed to Tamiflu 30 mg po BID for 5 days - Continue supportive Care and PRN Medications for symptomatic control Bronchitis with Hypoxia, Improving - She is off O2 - Carries a hx/o Asthma/RAD - Likely 2/2 Above - Dry cough but feels like "it won't come out" - She was seen outpatient and treated for it - Continue oral 250 mg po daily in AM - Sputum Cx/Sx-unable to provide sample; Mycoplasma pneumonia Ag negative - Supportive Care and PRN Decongestant/Expectorant Resolved: Leukocytosis - WBC 10.06--> 5.53 - 2/2 Above - Monitor Hypokalemia - K 2.6--> 4.1 - 2/2 inadequate intake - Replete and monitor Chronic: Impaired Vision HTN\\HLD Hx/o [place] with stents Asthma/RAD 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
[2017-11-20] MEDS: Albuterol 0.083% 2.5 MG/3 ML Neb Soln NEB SCH ×2 (08:32→20:30)
[2017-11-20] MEDS: Calcium Carbonate 600 MG Tab PO SCH (10:24)
[2017-11-20] MEDS: Fish Oil/Omega-3 Fatty Acids 1 Gm Cap PO SCH (10:26)
[2017-11-20] MEDS: Cholecalciferol (Vitamin D3) 1,000 Unit Tab PO SCH (10:30)
[2017-11-20] MEDS: Famotidine 20 MG Tab PO SCH ×2 (10:31→20:08)
[2017-11-20] MEDS: Losartan 25 MG Tab PO SCH (10:31)
[2017-11-20] MEDS: Oseltamivir 30 MG Cap PO SCH ×2 (10:32→20:07)
[2017-11-20] MEDS: Gabapentin 300 MG Cap PO SCH ×2 (10:33→20:07)
[2017-11-20] MEDS: Primidone 50 MG Tab PO SCH ×2 (10:34→20:08)
[2017-11-20] MEDS: Azithromycin 250 MG Tab PO SCH (10:35)
[2017-11-20] MEDS: Aspirin 81 MG Tab.EC PO SCH (10:35)
[2017-11-20] MEDS: Benzonatate 100 MG Cap PO PRN ×2 (12:30→20:56)
[2017-11-20] MEDS: guaiFENesin/Dextromethorphan 100-10 MG/5 ML Soln 5 ML Cup PO PRN ×3 (12:30→22:17)
[2017-11-20] MEDS: ALPRAZolam 0.25 MG Tab PO PRN (13:20)
--- NOTE | 2017-11-20 16:54 | CR ---
Chest: Frontal view of the chest was obtained. Comparison: Prior chest x-ray of 06/07/17. Heart size is normal. Tortuous thoracic aorta is seen. Scarring is noted within the left upper chest. Lungs otherwise are clear. Scoliosis is noted within the spine with scattered degenerative change. Impression: 1. Incidental findings. Nothing acute is appreciated on frontal chest x-ray. Diagnostic code #2
[2017-11-20] MEDS: Benzocaine/Cetylpyridinium/Menthol Lozenge MUCMEM PRN ×2 (19:58→22:51)
[2017-11-20] MEDS: ALPRAZolam 0.25 MG Tab PO SCH (20:08)
[2017-11-20] MEDS: Bisacodyl 5 MG Tab PO PRN (20:08)
[2017-11-20] MEDS: Temazepam 7.5 MG Cap PO PRN (20:19)
[2017-11-20] MEDS: Ibuprofen 400 MG Tab PO PRN (21:52)
[2017-11-20] MEDS: LORazepam 2 MG/ML SDV IV PRN (22:51)
[2017-11-21] MEDS: Dextrose 5%-0.45% NaCl 1,000 ML IV SCH (03:06)
[2017-11-21] MEDS: guaiFENesin/Dextromethorphan 100-10 MG/5 ML Soln 5 ML Cup PO PRN ×4 (04:15→20:55)
[2017-11-21] MEDS: hydrALAZINE 20 MG/ML SDV IVPUSH PRN (04:16)
[2017-11-21] MEDS: Benzocaine/Cetylpyridinium/Menthol Lozenge MUCMEM PRN ×3 (04:16→20:55)
[2017-11-21] MEDS: Albuterol 0.083% 2.5 MG/3 ML Neb Soln NEB SCH ×2 (08:19→20:10)
--- NOTE | 2017-11-21 08:27 | PCM.PN ---
- General Info Date of Service: 11/21/17 Admission Dx/Problem (Free Text): Acute Viral Illness Subjective Update: In to see Delores. She is sitting on the edge of her bed waiting for her supper. She reports cough but otherwise says she feels pretty well. No concerns. No concerns from nursing. Functional Status: Reports: Pain Controlled, Tolerating Diet, Ambulating, Urinating. Denies: New Symptoms - Review of Systems General: Reports: No Symptoms. Denies: Fever, Weakness, Fatigue, Malaise HEENT: Reports: No Symptoms Pulmonary: Reports: Cough, Wheezing (when coughing ). Denies: Shortness of Breath, Sputum Cardiovascular: Reports: No Symptoms. Denies: Chest Pain, Palpitations Gastrointestinal: Reports: No Symptoms. Denies: Abdominal Pain, Constipation, Diarrhea, Nausea Genitourinary: Reports: No Symptoms. Denies: Dysuria, Frequency, Burning, Pain , Urgency Musculoskeletal: Reports: No Symptoms Skin: Reports: No Symptoms Neurological: Reports: No Symptoms Psychiatric: Reports: No Symptoms - Patient Data Vitals - Most Recent: Last Vital Signs Temp 97.3 F 11/21/17 04:06 Pulse 78 11/21/17 04:06 Resp 20 11/21/17 04:06 BP 130/68 11/21/17 08:10 Pulse Ox 91 L 11/21/17 08:19 Weight - Most Recent: 138 lb 6.4 oz I&O - Last 24 Hours: Intake & Output 11/20/17 11/21/17 11/21/17 22:59 06:59 14:59 Intake Total 2257 1042 Output Total 2250 1700 Balance 7 -658 Lab Results Last 24 Hours: Laboratory Results - last 24 hr 11/21/17 11/21/17 Range/Units 06:51 06:51 WBC 10.32 H (3.98-10.04) K/mm3 RBC 3.68 L (3.98-5.22) M/mm3 Hgb 11.2 (11.2-15.7) gm/L Hct 33.9 L (34.1-44.9) % MCV 92.1 (79.4-94.8) fl MCH 30.4 (25.6-32.2) pg MCHC 33.0 (32.2-35.5) g/dl RDW Std Deviation 50.2 H (36.4-46.3) fL Plt Count 252 (182-369) K/mm3 MPV 10.7 (9.4-12.3) fl Neut % (Auto) 33.1 L (34.0-71.1) % Lymph % (Auto) 26.2 (19.3-51.7) % [place] % (Auto) 38.9 H (4.7-12.5) % Eos % (Auto) 1.6 (0.7-5.8) Baso % (Auto) 0.1 (0.1-1.2) % Neut # (Auto) 3.43 (1.56-6.13) K/mm3 Lymph # (Auto) 2.70 (1.18-3.74) K/mm3 [place] # (Auto) 4.01 H (0.24-0.36) K/mm3 Eos # (Auto) 0.16 (0.04-0.36) K/mm3 Baso # (Auto) 0.01 (0.01-0.08) K/mm3 Manual Slide Review Normal smear Sodium 135 L (136-145) mEq/L Potassium 3.2 L (3.5-5.1) mEq/L Chloride 98 (98-107) mEq/L Carbon Dioxide 27 (21-32) mEq/L Anion Gap 13.2 (5-15) BUN 7 (7-18) mg/dL Creatinine 0.5 L (0.55-1.02) mg/dL Est Cr Clr Drug Dosing 61.23 mL/min Estimated GFR (MDRD) > 60 (>60) mL/min BUN/Creatinine Ratio 14.0 (14-18) Glucose 106 (83-115) mg/dL Calcium 8.4 L (8.5-10.1) mg/dL Magnesium 1.8 (1.8-2.4) mg/dl C-Reactive Protein 1.2 H* (<1.0) mg/dL Med Orders - Current: Current Medications Acetaminophen (Tylenol) 650 mg PO Q4H PRN PRN Reason: Pain (Mild 1-3)/fever Last Admin: 11/19/17 21:15 Dose: 650 mg Acetaminophen (Tylenol) 1,300 mg PO DAILY PRN PRN Reason: Pain (severe 7-10) Hydrocodone Bitart/Acetaminophen ([place] 325-5 Mg) 1 tab PO Q4H PRN PRN Reason: Pain (moderate 4-6) Albuterol (Proventil Neb Soln) 2.5 mg NEB [id number] [facility] Last Admin: 11/21/17 08:19 Dose: 2.5 mg Albuterol/Ipratropium (Duoneb 3.0-0.5 Mg/3 Ml) 3 ml NEB Q4H PRN PRN Reason: Shortness Of Breath/wheezing Last Admin: 11/20/17 18:28 Dose: 3 ml Alprazolam (Xanax) 0.25 mg PO BEDTIME [facility] Last Admin: 11/20/17 20:08 Dose: 0.25 mg Alprazolam (Xanax) 0.25 mg PO Q6H PRN PRN Reason: Anxiety Last Admin: 11/20/17 13:20 Dose: 0.25 mg Aspirin (Halfprin) 81 mg PO DAILY [facility] Last Admin: 11/20/17 10:35 Dose: 81 mg Azithromycin (Zithromax) 250 mg PO DAILY [facility] Last Admin: 11/20/17 10:35 Dose: 250 mg Benzocaine/Menthol (Cepacol Sore Throat) 1 lozenge MUCMEM Q2H PRN PRN Reason: Sore Throat Last Admin: 11/21/17 04:16 Dose: 1 lozenge Benzonatate (Tessalon Perles) 100 mg PO TID PRN PRN Reason: Cough Last Admin: 11/20/17 20:56 Dose: 100 mg Bisacodyl (Dulcolax) 5 mg PO DAILY PRN PRN Reason: Constipation Last Admin: 11/20/17 20:08 Dose: 5 mg Calcium Carbonate/Glycine (Calcium Carbonate) 600 mg PO DAILY [facility] Last Admin: 11/20/17 10:24 Dose: 600 mg Cholecalciferol (Vitamin D3) 1,000 units PO DAILY [facility] Last Admin: 11/20/17 10:30 Dose: 1,000 units Docusate Sodium (Colace) 100 mg PO BID PRN PRN Reason: Constipation Famotidine (Pepcid) 20 mg PO BID [facility] Last Admin: 11/20/17 20:08 Dose: 20 mg Fish Oil (Fish Oil) 1 gm PO DAILY [facility] Last Admin: 11/20/17 10:26 Dose: 1 gm Gabapentin (Neurontin) 300 mg PO BID [facility] Last Admin: 11/20/17 20:07 Dose: 300 mg Guaifenesin/Phenylephrine HCl (Robitussin Dm) 5 ml PO Q4H PRN PRN Reason: Cough Last Admin: 11/21/17 04:15 Dose: 5 ml Hydralazine HCl (Apresoline) 10 mg IVPUSH Q4H PRN PRN Reason: Hypertension Last Admin: 11/21/17 04:16 Dose: 10 mg Hydromorphone HCl (Dilaudid) 0.25 mg IVPUSH Q4H PRN PRN Reason: Pain (severe 7-10) Dextrose/Sodium Chloride (Dextrose 5%-1/2 Ns) 1,000 mls @ 50 mls/hr IV ASDIRECTED [facility] Last Admin: 11/21/17 03:06 Dose: 50 mls/hr Promethazine HCl 6.25 mg/ (Sodium Chloride) 50.25 mls @ 100 mls/hr IV Q6H PRN PRN Reason: Nausea/Vomiting Ibuprofen (Motrin) 400 mg PO Q6H PRN PRN Reason: Pain Last Admin: 11/20/17 21:52 Dose: 400 mg Lorazepam (Ativan) 2 mg IVPUSH Q4H PRN PRN Reason: Seizures Lorazepam (Ativan) 0.25 mg IV Q6H PRN PRN Reason: Anxiety Last Admin: 11/20/17 22:51 Dose: 0.25 mg Losartan Potassium (Cozaar) 50 mg PO DAILY [facility] Last Admin: 11/20/17 10:31 Dose: 50 mg Magnesium Sulfate (Pharmacy To Dose - Magnesium Replacement) 1 dose .XX ASDIRECTED [facility] Metoprolol Tartrate (Lopressor) 5 mg IVPUSH Q4H PRN PRN Reason: Tachycardia Ondansetron HCl (Zofran) 4 mg IV Q6H PRN PRN Reason: Nausea/Vomiting Oseltamivir Phosphate (Tamiflu) 30 mg PO BID [facility] Stop: 11/23/17 21:01 Last Admin: 11/20/17 20:07 Dose: 30 mg Polyethylene Glycol (Miralax) 17 gm PO DAILY PRN PRN Reason: Constipation Potassium Chloride (Pharmacy To Dose - Potassium Replacement) 1 dose .XX ASDIRECTED [facility] Potassium Chloride (Klor-Con M20) 40 meq PO ONETIME ONE Stop: 11/21/17 09:01 Primidone (Mysoline) 100 mg PO BID [facility] Last Admin: 11/20/17 20:08 Dose: 100 mg Senna/Docusate Sodium (Senna Plus) 1 tab PO BID PRN PRN Reason: Constipation Temazepam (Restoril) 7.5 mg PO BEDTIME PRN PRN Reason: Sleep Last Admin: 11/20/17 20:19 Dose: 7.5 mg Discontinued Medications Benzonatate (Tessalon Perles) 200 mg PO ONETIME ONE Stop: 11/18/17 16:15 Last Admin: 11/18/17 16:23 Dose: 200 mg Denosumab (Prolia) 60 mg SUBCUT ASDIRECTED [facility] Dexamethasone (Dexamethasone) 10 mg IV ONETIME ONE Stop: 11/18/17 16:15 Last Admin: 11/18/17 16:23 Dose: 10 mg Doxycycline Hyclate (Vibramycin) 100 mg PO ONETIME ONE Stop: 11/18/17 16:15 Last Admin: 11/18/17 16:23 Dose: 100 mg Potassium Chloride 10 meq/ (Premix) 100 mls @ 100 mls/hr IV Q1H [facility] Stop: 11/18/17 21:29 Last Admin: 11/18/17 23:29 Dose: 75 mls/hr Azithromycin 500 mg/ Sodium (Chloride) 250 mls @ 250 mls/hr IV ONETIME ONE Stop: 11/18/17 20:27 Last Admin: 11/18/17 22:24 Dose: 250 mls/hr Magnesium Sulfate 2 gm/ Premix 50 mls @ 50 mls/hr IV ONETIME ONE Stop: 11/18/17 20:59 Last Admin: 11/18/17 21:42 Dose: 50 mls/hr Ibuprofen (Motrin) 600 mg PO ONETIME ONE Stop: 11/18/17 19:01 Last Admin: 11/18/17 19:08 Dose: 600 mg Oseltamivir Phosphate (Tamiflu) 75 mg PO BID [facility] Stop: 11/23/17 21:01 Last Admin: 11/19/17 08:55 Dose: 75 mg Potassium Chloride (Klor-Con M20) 40 meq PO ONETIME ONE Stop: 11/18/17 17:18 Last Admin: 11/18/17 17:38 Dose: 40 meq - Exam Quality Assessment: DVT Prophylaxis General: Alert, Oriented, Cooperative, No Acute Distress HEENT: Pupils Equal, Pupils Reactive, EOMI, Mucous Membr. Moist/[place] Neck: Supple, Trachea Midline, No JVD Lungs: Normal Respiratory Effort, Decreased Breath Sounds Cardiovascular: Regular Rate, Regular Rhythm GI/Abdominal Exam: Normal Bowel Sounds, Soft, Non-Tender, No Organomegaly, No Distention, No Abnormal Bruit, No Mass, Pelvis Stable (Female) Exam: Deferred Back Exam: Normal Inspection, Full Range of Motion Extremities: Normal Inspection, Normal Range of Motion, Non-Tender, No Pedal Edema, Normal Capillary Refill Peripheral Pulses: 2+: Radial (L), Radial (R), Posterior Tibial (L), Posterior Tibial (R), Dorsalis Pedis (L), Dorsalis Pedis (R) Skin: Warm, Dry, Intact Neurological: No New Focal Deficit Psy/Mental Status: Alert, Normal Affect, Normal Mood - Problem List & Annotations (1) Hypokalemia SNOMED Code(s): 11435522 Code(s): E87.6 - HYPOKALEMIA Status: Acute Priority: High Current Visit : Yes (2) Influenza B SNOMED Code(s): 86058748 Code(s): J10.1 - FLU DUE TO OTH IDENT INFLUENZA VIRUS W OTH RESP MANIFEST Status: Acute Priority: High Current Visit: Yes (3) GERD (gastroesophageal reflux disease) SNOMED Code(s): 796864938 Code(s): K21.9 - GASTRO-ESOPHAGEAL REFLUX DISEASE WITHOUT ESOPHAGITIS Status: Chronic Priority: Low Current Visit: No Qualifiers: Esophagitis presence: esophagitis presence not specified Qualified Code(s) : K21.9 - Gastro-esophageal reflux disease without esophagitis (4) Osteoarthritis SNOMED Code(s): 273927697 Code(s): M19.90 - UNSPECIFIED OSTEOARTHRITIS, UNSPECIFIED SITE Status: Chronic Priority: Low Current Visit: No Qualifiers: Osteoarthritis location: unspecified site Osteoarthritis type: unspecified Qualified Code(s): M19.90 - Unspecified osteoarthritis, unspecified site (5) CAD (coronary artery disease) SNOMED Code(s): 32803406 Code(s): I25.10 - ATHSCL HEART DISEASE OF [place] CORONARY ARTERY W/O ANG PCTRS Status: Chronic Priority: Low Current Visit: No Qualifiers: Coronary Disease-Associated Artery/Lesion type: unspecified vessel or lesion type [place] vs. transplanted heart: unspecified whether [place] or transplanted heart Associated angina: with unspecified angina Qualified Code (s): I25.119 - Atherosclerotic heart disease of [place] coronary artery with unspecified angina pectoris (6) HTN (hypertension) SNOMED Code(s): 61841116 Code(s): I10 - ESSENTIAL (PRIMARY) HYPERTENSION Status: Chronic Priority : Low Current Visit: No Qualifiers: Hypertension type: essential hypertension Qualified Code(s): I10 - Essential (primary) hypertension - Problem List Review Problem List Initiated/Reviewed/Updated: Yes - Plan Plan:: Assessment/Plan: Acute: Viral Illness, Continues to Improve - 2/2 Influenza B positive - Her symptoms started Tuesday; she reports not treatment with Tamiflu - She needs anti-viral due to advanced age and co-morbid conditions - She has good GFR > 60 ml; pharmacy renally dosed to Tamiflu 30 mg po BID for 5 days - Continue supportive Care and PRN Medications for symptomatic control Bronchitis with Hypoxia, Improving - She is off O2 - Carries a hx/o Asthma/RAD - Likely 2/2 Above - Dry cough but feels like "it won't come out" - She was seen outpatient and treated for it - Continue oral azithromycin 250 mg po daily in AM - Sputum Cx/Sx-unable to provide sample; Mycoplasma pneumonia Ag negative - Supportive Care and PRN Decongestant/Expectorant - Albuterol/Duoneb as needed Leukocytosis - WBC 10.06--> 5.53-->7.07-->10.32 - 2/2 Above - Monitor - CXR Hypokalemia - K 2.6--> 4.1-->3.8-->3.2 - 2/2 inadequate intake - Replete and monitor Chronic: Impaired Vision HTN\\HLD Hx/o DC with stents Asthma/RAD HIWOT w/o CPAP Constipation OA/DJD Anxiety Hx/o Esophageal Cancer Plan: She remains clinically stable Continue current treatment Isolation Precaution Strep pneumonia Ag and Respiratory Panel-pending Routine AM Labs Ambulate as tolerated Additional orders as above Code status: CPR only; PCP: was seeing Yesica Samples, Needs to establish new PCP Possible d/c in 1-2 days
[2017-11-21] MEDS ORDERED: Potassium Chloride 20 MEQ Tab.ER PO ONE ×2 (09:00→11:45)
[2017-11-21] MEDS: Losartan 25 MG Tab PO SCH (11:38)
[2017-11-21] MEDS: Fish Oil/Omega-3 Fatty Acids 1 Gm Cap PO SCH (11:40)
[2017-11-21] MEDS: Azithromycin 250 MG Tab PO SCH (11:41)
[2017-11-21] MEDS: Oseltamivir 30 MG Cap PO SCH ×2 (11:43→20:56)
[2017-11-21] MEDS: Aspirin 81 MG Tab.EC PO SCH (11:43)
[2017-11-21] MEDS: Calcium Carbonate 600 MG Tab PO SCH (11:44)
[2017-11-21] MEDS: Gabapentin 300 MG Cap PO SCH ×2 (11:45→20:56)
[2017-11-21] MEDS: Primidone 50 MG Tab PO SCH ×2 (11:46→20:56)
[2017-11-21] MEDS: Famotidine 20 MG Tab PO SCH ×2 (11:46→20:56)
[2017-11-21] MEDS: Cholecalciferol (Vitamin D3) 1,000 Unit Tab PO SCH (11:47)
[2017-11-21] MEDS: ALPRAZolam 0.25 MG Tab PO PRN (14:06)
--- NOTE | 2017-11-21 18:53 | CR ---
Chest: 2 views of the chest were obtained. Comparison: Previous portable chest x-ray of [id number]. Scattered areas of scarring are noted. No acute parenchymal densities are seen within either lung. Heart size and mediastinum are within normal limits. Mild scoliosis is noted within the spine. Bony structures are also osteoporotic. Degenerative change scattered within the spine. Impression: 1. Stable findings as described above. Nothing acute is seen on 2 view chest x-ray. Diagnostic code #2
[2017-11-21] MEDS: ALPRAZolam 0.25 MG Tab PO SCH (20:56)
[2017-11-21] MEDS: Temazepam 7.5 MG Cap PO PRN (20:56)
[2017-11-21] MEDS: Bisacodyl 5 MG Tab PO PRN (20:56)
[2017-11-21] MEDS: Benzonatate 100 MG Cap PO PRN (20:56)
[2017-11-21] MEDS: Ibuprofen 400 MG Tab PO PRN (21:00)
[2017-11-22] MEDS: Albuterol 0.083% 2.5 MG/3 ML Neb Soln NEB SCH (08:24)
[2017-11-22] MEDS: Calcium Carbonate 600 MG Tab PO SCH (08:45)
[2017-11-22] MEDS: Famotidine 20 MG Tab PO SCH (08:45)
[2017-11-22] MEDS: Cholecalciferol (Vitamin D3) 1,000 Unit Tab PO SCH (08:45)
[2017-11-22] MEDS: Primidone 50 MG Tab PO SCH (08:45)
[2017-11-22] MEDS: Azithromycin 250 MG Tab PO SCH (08:45)
[2017-11-22] MEDS: Aspirin 81 MG Tab.EC PO SCH (08:45)
[2017-11-22] MEDS: Fish Oil/Omega-3 Fatty Acids 1 Gm Cap PO SCH (08:45)
[2017-11-22] MEDS: Gabapentin 300 MG Cap PO SCH (08:45)
[2017-11-22] MEDS: Oseltamivir 30 MG Cap PO SCH (08:45)
[2017-11-22] MEDS: Losartan 25 MG Tab PO SCH (08:46)
--- NOTE | 2017-11-22 09:35 | PCM.DCSUM1 ---
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 However per ED notes, these have been going on for 2 weeks now. She reports sick contact in the family with her . She denies any fevers or chills but feels weak. Her symptoms are aggravated by activity. At the clinic she was found with low O2 sat on room air in the 80s. She received initial treatment but her hypoxia did not improve. Therefore she was sent over here to the emergency department for further evaluation. Her initial workup in ED shows a CBC remarkable for WBC of 10.6, RDW of 48.2, neutrophils of 14% and monocytes of 50.6%. Her chemistry is remarkable for sodium of 132, potassium of 2.6, and chloride of 92. Her UA is negative for UTI. Her chest x-ray shows increased opacification at the right base. Her influenza screening is positive for type B. Patient is being admitted for treatment of acute viral illness and lingering bronchitis. She is CPR only. - Discharge Data Discharge Date: 11/22/17 (Admit date: 11/18/17) Discharge Disposition: Home, Self-Care 01 Condition: Good - Discharge Diagnosis/Problem(s) (1) Hypokalemia SNOMED Code(s): 42418246 ICD Code: E87.6 - HYPOKALEMIA Status: Resolved Priority: High Current Visit: Yes (2) Influenza B SNOMED Code(s): 37287609 ICD Code: J10.1 - FLU DUE TO OTH IDENT INFLUENZA VIRUS W OTH RESP MANIFEST Status: Acute Priority: High Current Visit: Yes (3) GERD (gastroesophageal reflux disease) SNOMED Code(s): 740655680 ICD Code: K21.9 - GASTRO-ESOPHAGEAL REFLUX DISEASE WITHOUT ESOPHAGITIS Status: Chronic Priority: Low Current Visit: No Qualifiers: Esophagitis presence: esophagitis presence not specified Qualified Code(s) : K21.9 - Gastro-esophageal reflux disease without esophagitis (4) Osteoarthritis SNOMED Code(s): 160836843 ICD Code: M19.90 - UNSPECIFIED OSTEOARTHRITIS, UNSPECIFIED SITE Status: Chronic Priority: Low Current Visit: No Qualifiers: Osteoarthritis location: unspecified site Osteoarthritis type: unspecified Qualified Code(s): M19.90 - Unspecified osteoarthritis, unspecified site (5) CAD (coronary artery disease) SNOMED Code(s): 47720918 ICD Code: I25.10 - ATHSCL HEART DISEASE OF [place] CORONARY ARTERY W/O ANG PCTRS Status: Chronic Priority: Low Current Visit: No Qualifiers: Coronary Disease-Associated Artery/Lesion type: unspecified vessel or lesion type [place] vs. transplanted heart: unspecified whether [place] or transplanted heart Associated angina: with unspecified angina Qualified Code (s): I25.119 - Atherosclerotic heart disease of [place] coronary artery with unspecified angina pectoris (6) HTN (hypertension) SNOMED Code(s): 90690800 ICD Code: I10 - ESSENTIAL (PRIMARY) HYPERTENSION Status: Chronic Priority : Low Current Visit: No Qualifiers: Hypertension type: essential hypertension Qualified Code(s): I10 - Essential (primary) hypertension - Patient Summary/Data Labs Pending at D/C: Strep Pneumo pending Hospital Course: Assessment/Plan: Acute: Viral Illness, Continues to Improve - 2/2 Influenza B positive - Her symptoms started Tuesday; she reports not treatment with Tamiflu - She needs anti-viral due to advanced age and co-morbid conditions - She has good GFR > 60 ml; pharmacy renally dosed to Tamiflu 30 mg po BID for 5 days - Continue supportive Care and PRN Medications for symptomatic control Resolved Leukocytosis - WBC 10.06--> 5.53-->7.07-->10.32-->7.47 - 2/2 Above - Monitor - CXR - Negative for acute findings Hypokalemia - K 2.6--> 4.1-->3.8-->3.2-->4.2 - 2/2 inadequate intake and albuterol use - Replete and monitor Bronchitis with Hypoxia - She is off O2 - Carries a hx/o Asthma/RAD - Likely 2/2 Above - Dry cough but feels like "it won't come out" - She was seen outpatient and treated for it - Continue oral azithromycin 250 mg po daily in AM - discontinue on discharge - Sputum Cx/Sx-unable to provide sample; Mycoplasma pneumonia Ag negative - Supportive Care and PRN Decongestant/Expectorant - Albuterol/Duoneb as needed Chronic: Impaired Vision HTN\\HLD Hx/o MS with stents 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 She continued to improve and was weaned off oxygen. She states she feels good aside from a lingering cough. She has no other complaints. I advised her that she may feel weak or not her self for sometime as the flu is viral and takes awhile to resolve. She has been receiving tamiflu and will be discharged home on 3 remaining doses. She will also receive singular due to her asthma and possible RAD. She may benefit from a PFT in the future. She has been instructed to follow -up with her PCP in 7-10 days. There was some confusion with her home meds as she has not refilled some of them in some time. Would recommend a follow-up BMP on Tuesday as he potassium was low on admission and has fluctuated. The results of this should be sent to her PCP. - Patient Instructions Diet: Regular Diet as Tolerated Activity: As Tolerated Driving: Do Not Drive (today ) Showering/Bathing: May Shower Notify Provider of: Fever, Increased Pain, Nausea and/or Vomiting (worsening SOB. ) - Discharge Plan Prescriptions/Med Rec: Albuterol Sulfate [Ventolin Hfa] 8 gm IH BID PRN #30 hfa.aer.ad PRN Reason: Shortness of breath/wheezing Dextromethorphan/guaiFENesin [Robitussin DM] 5 ml PO Q4H PRN #1 cup PRN Reason: Cough Losartan [Cozaar] 50 mg PO DAILY #20 tablet Montelukast [Singulair] 10 mg PO BEDTIME #14 tablet Oseltamivir Phosphate [Tamiflu] 30 mg PO BID #3 capsule Home Medications: Home Meds Aspirin [Low Dose Aspirin EC] 81 mg PO DAILY 02/27/14 [History] Denosumab [Prolia] 60 mg SQ ASDIRECTED 02/27/14 [History] Ubidecarenone [Coenzyme Q10] 100 mg PO DAILY 02/27/14 [History] Cholecalciferol (Vitamin D3) [Vitamin D3] 1,000 units PO DAILY 10/11/14 [History ] Acetaminophen 1,500 mg PO DAILY PRN 03/28/15 [History] Vitamin B Complex [B Complex] 1 mg PO DAILY 03/28/15 [History] Multivitamins,Therapeutic [Thera] 1 each PO WITHBREAKFAST tablet 04/03/15 [Rx] Ibuprofen 400 mg PO Q6H PRN 01/08/17 [History] Vitamin A Palmitate [Vitamin A] 4,000 unit PO DAILY 01/08/17 [History] Albuterol [Ventolin HFA] 2 puff INH Q4H PRN 11/18/17 [History] Benzonatate [Tessalon Perle] 100 mg PO TID PRN 11/18/17 [History] Calcium Carbonate [Calcium] 600 mg PO DAILY 11/18/17 [History] Fish Oil/Bryan-3 Fatty Acids [Fish Oil 1,000 MG] 1 each PO DAILY 11/18/17 [ History] Gabapentin [Neurontin] 300 mg PO BID 11/18/17 [History] Nitroglycerin 0.4 mg SL ASDIRECTED PRN 11/18/17 [History] Primidone [Mysoline] 100 mg PO BID 11/18/17 [History] ALPRAZolam [Alprazolam] 0.25 mg PO BEDTIME 11/21/17 [History] Lovastatin [Mevacor] 80 mg PO BEDTIME 11/21/17 [History] Metoprolol Tartrate 50 mg PO BIDMEALS 11/21/17 [History] Omeprazole 40 mg PO ACBREAKFAST 11/21/17 [History] Spironolactone [Aldactone] 12.5 mg PO DAILY 11/21/17 [History] amLODIPine Besylate [Amlodipine Besylate] 10 mg PO DAILY 11/21/17 [History] Albuterol Sulfate [Ventolin Hfa] 8 gm IH BID PRN #30 hfa.aer.ad 11/22/17 [Rx] Dextromethorphan/guaiFENesin [Robitussin DM] 5 ml PO Q4H PRN #1 cup 11/22/17 [Rx ] Losartan [Cozaar] 50 mg PO DAILY #20 tablet 11/22/17 [Rx] Montelukast [Singulair] 10 mg PO BEDTIME #14 tablet 11/22/17 [Rx] Oseltamivir Phosphate [Tamiflu] 30 mg PO BID #3 capsule 11/22/17 [Rx] Patient Handouts: Influenza, Adult, [id number], Hypokalemia Forms: ED Department Discharge Referrals: PCP,Unknown [Primary Care Provider] - - Discharge Summary/Plan Comment DC Time >30 min.: Yes (45 mins) - General Info Date of Service: 11/22/17 Admission Dx/Problem (Free Text: Acute Viral Illness Subjective Update: In to see Delores. She is lying in bed. She is very excited to be discharged today. We discussed her plan for discharge. She does not have a current PCP. She would like to establish with Connie Stanton PA-C in our medical clinic as she has seen her before. She has no current concerns. Functional Status: Reports: Pain Controlled, Tolerating Diet, Ambulating, Urinating. Denies: New Symptoms - Review of Systems General: Reports: No Symptoms HEENT: Reports: No Symptoms Pulmonary: Reports: Cough (occasional ), Wheezing (mild after coughing ). Denies: Shortness of Breath, Sputum Cardiovascular: Reports: No Symptoms Gastrointestinal: Reports: No Symptoms. Denies: Abdominal Pain, Constipation, Diarrhea, Nausea, Vomiting Genitourinary: Reports: No Symptoms Musculoskeletal: Reports: No Symptoms Skin: Reports: No Symptoms Neurological: Reports: No Symptoms Psychiatric: Reports: No Symptoms - Patient Data Vitals - Most Recent: Last Vital Signs Temp 98.8 F 11/22/17 08:05 Pulse 68 11/22/17 08:05 Resp 20 11/22/17 08:05 BP 145/65 H 11/22/17 08:46 Pulse Ox 95 11/22/17 08:26 Weight - Most Recent: 137 lb 1.6 oz I&O - Last 24 hours: Intake & Output 11/21/17 11/22/17 11/22/17 22:59 06:59 14:59 Intake Total 3023 700 Output Total 2300 1300 Balance 723 -600 Lab Results - Last 24 hrs: Laboratory Results - last 24 hr 11/22/17 11/22/17 Range/Units 05:45 05:45 WBC 7.47 (3.98-10.04) K/mm3 RBC 3.63 L (3.98-5.22) M/mm3 Hgb 11.1 L (11.2-15.7) gm/L Hct 33.7 L (34.1-44.9) % MCV 92.8 (79.4-94.8) fl MCH 30.6 (25.6-32.2) pg MCHC 32.9 (32.2-35.5) g/dl RDW Std Deviation 51.4 H (36.4-46.3) fL Plt Count 259 (182-369) K/mm3 MPV 10.6 (9.4-12.3) fl Neut % (Auto) 24.7 L (34.0-71.1) % Lymph % (Auto) 32.9 (19.3-51.7) % [place] % (Auto) 39.8 H (4.7-12.5) % Eos % (Auto) 2.4 (0.7-5.8) Baso % (Auto) 0.1 (0.1-1.2) % Neut # (Auto) 1.84 (1.56-6.13) K/mm3 Lymph # (Auto) 2.46 (1.18-3.74) K/mm3 [place] # (Auto) 2.97 H (0.24-0.36) K/mm3 Eos # (Auto) 0.18 (0.04-0.36) K/mm3 Baso # (Auto) 0.01 (0.01-0.08) K/mm3 Manual Slide Review Abnormal smear Sodium 134 L (136-145) mEq/L Potassium 4.2 (3.5-5.1) mEq/L Chloride 99 (98-107) mEq/L Carbon Dioxide 28 (21-32) mEq/L Anion Gap 11.2 (5-15) BUN 7 (7-18) mg/dL Creatinine 0.5 L (0.55-1.02) mg/dL Est Cr Clr Drug Dosing 61.23 mL/min Estimated GFR (MDRD) > 60 (>60) mL/min BUN/Creatinine Ratio 14.0 (14-18) Glucose 100 (83-115) mg/dL Calcium 8.7 (8.5-10.1) mg/dL Magnesium 1.9 (1.8-2.4) mg/dl C-Reactive Protein 2.6 H* (<1.0) mg/dL Med Orders - Current: Current Medications Acetaminophen (Tylenol) 650 mg PO Q4H PRN PRN Reason: Pain (Mild 1-3)/fever Last Admin: 11/19/17 21:15 Dose: 650 mg Acetaminophen (Tylenol) 1,300 mg PO DAILY PRN PRN Reason: Pain (severe 7-10) Hydrocodone Bitart/Acetaminophen ([place] 325-5 Mg) 1 tab PO Q4H PRN PRN Reason: Pain (moderate 4-6) Albuterol (Proventil Neb Soln) 2.5 mg NEB [id number] [facility] Last Admin: 11/22/17 08:24 Dose: 2.5 mg Albuterol/Ipratropium (Duoneb 3.0-0.5 Mg/3 Ml) 3 ml NEB Q4H PRN PRN Reason: Shortness Of Breath/wheezing Last Admin: 11/20/17 18:28 Dose: 3 ml Alprazolam (Xanax) 0.25 mg PO BEDTIME [facility] Last Admin: 11/21/17 20:56 Dose: 0.25 mg Alprazolam (Xanax) 0.25 mg PO Q6H PRN PRN Reason: Anxiety Last Admin: 11/21/17 14:06 Dose: 0.25 mg Aspirin (Halfprin) 81 mg PO DAILY [facility] Last Admin: 11/22/17 08:45 Dose: 81 mg Azithromycin (Zithromax) 250 mg PO DAILY [facility] Last Admin: 11/22/17 08:45 Dose: 250 mg Benzocaine/Menthol (Cepacol Sore Throat) 1 lozenge MUCMEM Q2H PRN PRN Reason: Sore Throat Last Admin: 11/21/17 20:55 Dose: 1 lozenge Benzonatate (Tessalon Perles) 100 mg PO TID PRN PRN Reason: Cough Last Admin: 11/21/17 20:56 Dose: 100 mg Bisacodyl (Dulcolax) 5 mg PO DAILY PRN PRN Reason: Constipation Last Admin: 11/21/17 20:56 Dose: 5 mg Calcium Carbonate/Glycine (Calcium Carbonate) 600 mg PO DAILY [facility] Last Admin: 11/22/17 08:45 Dose: 600 mg Cholecalciferol (Vitamin D3) 1,000 units PO DAILY [facility] Last Admin: 11/22/17 08:45 Dose: 1,000 units Docusate Sodium (Colace) 100 mg PO BID PRN PRN Reason: Constipation Famotidine (Pepcid) 20 mg PO BID [facility] Last Admin: 11/22/17 08:45 Dose: 20 mg Fish Oil (Fish Oil) 1 gm PO DAILY [facility] Last Admin: 11/22/17 08:45 Dose: 1 gm Gabapentin (Neurontin) 300 mg PO BID [facility] Last Admin: 11/22/17 08:45 Dose: 300 mg Guaifenesin/Phenylephrine HCl (Robitussin Dm) 5 ml PO Q4H PRN PRN Reason: Cough Last Admin: 11/21/17 20:55 Dose: 5 ml Hydralazine HCl (Apresoline) 10 mg IVPUSH Q4H PRN PRN Reason: Hypertension Last Admin: 11/21/17 04:16 Dose: 10 mg Hydromorphone HCl (Dilaudid) 0.25 mg IVPUSH Q4H PRN PRN Reason: Pain (severe 7-10) Promethazine HCl 6.25 mg/ (Sodium Chloride) 50.25 mls @ 100 mls/hr IV Q6H PRN PRN Reason: Nausea/Vomiting Ibuprofen (Motrin) 400 mg PO Q6H PRN PRN Reason: Pain Last Admin: 11/21/17 21:00 Dose: 400 mg Lorazepam (Ativan) 2 mg IVPUSH Q4H PRN PRN Reason: Seizures Lorazepam (Ativan) 0.25 mg IV Q6H PRN PRN Reason: Anxiety Last Admin: 11/20/17 22:51 Dose: 0.25 mg Losartan Potassium (Cozaar) 50 mg PO DAILY [facility] Last Admin: 11/22/17 08:46 Dose: 50 mg Magnesium Sulfate (Pharmacy To Dose - Magnesium Replacement) 1 dose .XX ASDIRECTED [facility] Metoprolol Tartrate (Lopressor) 5 mg IVPUSH Q4H PRN PRN Reason: Tachycardia Montelukast Sodium (Singulair) 10 mg PO BEDTIME [facility] Ondansetron HCl (Zofran) 4 mg IV Q6H PRN PRN Reason: Nausea/Vomiting Oseltamivir Phosphate (Tamiflu) 30 mg PO BID [facility] Stop: 11/23/17 21:01 Last Admin: 11/22/17 08:45 Dose: 30 mg Polyethylene Glycol (Miralax) 17 gm PO DAILY PRN PRN Reason: Constipation Potassium Chloride (Pharmacy To Dose - Potassium Replacement) 1 dose .XX ASDIRECTED [facility] Primidone (Mysoline) 100 mg PO BID [facility] Last Admin: 11/22/17 08:45 Dose: 100 mg Senna/Docusate Sodium (Senna Plus) 1 tab PO BID PRN PRN Reason: Constipation Temazepam (Restoril) 7.5 mg PO BEDTIME PRN PRN Reason: Sleep Last Admin: 11/21/17 20:56 Dose: 7.5 mg Discontinued Medications Benzonatate (Tessalon Perles) 200 mg PO ONETIME ONE Stop: 11/18/17 16:15 Last Admin: 11/18/17 16:23 Dose: 200 mg Denosumab (Prolia) 60 mg SUBCUT ASDIRECTED [facility] Dexamethasone (Dexamethasone) 10 mg IV ONETIME ONE Stop: 11/18/17 16:15 Last Admin: 11/18/17 16:23 Dose: 10 mg Doxycycline Hyclate (Vibramycin) 100 mg PO ONETIME ONE Stop: 11/18/17 16:15 Last Admin: 11/18/17 16:23 Dose: 100 mg Potassium Chloride 10 meq/ (Premix) 100 mls @ 100 mls/hr IV Q1H [facility] Stop: 11/18/17 21:29 Last Admin: 11/18/17 23:29 Dose: 75 mls/hr Azithromycin 500 mg/ Sodium (Chloride) 250 mls @ 250 mls/hr IV ONETIME ONE Stop: 11/18/17 20:27 Last Admin: 11/18/17 22:24 Dose: 250 mls/hr Dextrose/Sodium Chloride (Dextrose 5%-1/2 Ns) 1,000 mls @ 50 mls/hr IV ASDIRECTED [facility] Last Admin: 11/21/17 03:06 Dose: 50 mls/hr Magnesium Sulfate 2 gm/ Premix 50 mls @ 50 mls/hr IV ONETIME ONE Stop: 11/18/17 20:59 Last Admin: 11/18/17 21:42 Dose: 50 mls/hr Ibuprofen (Motrin) 600 mg PO ONETIME ONE Stop: 11/18/17 19:01 Last Admin: 11/18/17 19:08 Dose: 600 mg Oseltamivir Phosphate (Tamiflu) 75 mg PO BID [facility] Stop: 11/23/17 21:01 Last Admin: 11/19/17 08:55 Dose: 75 mg Potassium Chloride (Klor-Con M20) 40 meq PO ONETIME ONE Stop: 11/18/17 17:18 Last Admin: 11/18/17 17:38 Dose: 40 meq Potassium Chloride (Klor-Con M20) 40 meq PO ONETIME ONE Stop: 11/21/17 09:01 Last Admin: 11/21/17 11:40 Dose: 40 meq Potassium Chloride (Klor-Con M20) 40 meq PO ONETIME ONE Stop: 11/21/17 11:46 Last Admin: 11/21/17 13:41 Dose: 40 meq - Exam Quality Assessment: Reports: DVT Prophylaxis General: Reports: Alert, Oriented, Cooperative, No Acute Distress HEENT: Reports: Pupils Equal, Pupils Reactive, EOMI, Mucous Membr. Moist/[place] Neck: Reports: Supple, Trachea Midline, No JVD Lungs: Reports: Clear to Auscultation, Normal Respiratory Effort, Decreased Breath Sounds Cardiovascular: Reports: Regular Rate, Regular Rhythm GI/Abdominal Exam: Normal Bowel Sounds, Soft, Non-Tender, No Organomegaly, No Distention, No Abnormal Bruit, No Mass, Pelvis Stable (Female) Exam: Deferred Rectal (Female) Exam: Deferred Back Exam: Reports: Normal Inspection, Full Range of Motion Extremities: Normal Inspection, Normal Range of Motion, Non-Tender, Normal Capillary Refill, Pedal Edema (mild non-pitting edema ) Skin: Reports: Warm, Dry, Intact Neurological: Reports: No New Focal Deficit Psy/Mental Status: Reports: Alert, Normal Affect, Normal Mood *Q Meaningful Use (DIS) - VTE *Q VTE Criteria *Q: - Stroke *Q Stroke Criteria *Q: - AMI *Q AMI Criteria *Q:
[2017-11-22] MEDS ORDERED: HYDROmorphone 0.5 MG/0.5 ML SYRINGE IVPUSH PRN (12:02)
[2017-11-22 12:03] VITALS: BP 180/90
[2017-11-22] MEDS ORDERED: Furosemide 20 MG/2 ML VIAL IVPUSH ONE (12:05)
[2017-11-22] MEDS: hydrALAZINE 20 MG/ML SDV IVPUSH PRN (12:07)
[2017-11-22] MEDS: Acetaminophen 325 MG Tab PO PRN (12:53)
[2017-11-22] MEDS ORDERED: Montelukast 10 MG Tab PO SCH (21:00)
== END 2017-11-22 13:00 | disposition home or self-care (01) | DRG 195 ==
LOC: JD.ED 15:15 → JD.MS 20:12
PROVIDERS: ADMIT Internal Medicine; ATTEND Internal Medicine
DX: J96.01 Acute respiratory failure with hypoxia (principal); J45.21 Mild intermittent asthma with (acute) exacerbation; J11.1 Influenza due to unidentified influenza virus with other respiratory manifestations; J10.1 Influenza due to other identified influenza virus with other respiratory manifestations; J40 Bronchitis, not specified as acute or chronic; E78.00 Pure hypercholesterolemia, unspecified; R09.02 Hypoxemia; J45.909 Unspecified asthma, uncomplicated; G47.30 Sleep apnea, unspecified; E87.6 Hypokalemia; I25.10 Atherosclerotic heart disease of native coronary artery without angina pectoris; I10 Essential (primary) hypertension; Z95.5 Presence of coronary angioplasty implant and graft; I25.2 Old myocardial infarction; G47.33 Obstructive sleep apnea (adult) (pediatric); K59.09 Other constipation; K21.9 Gastro-esophageal reflux disease without esophagitis; M19.90 Unspecified osteoarthritis, unspecified site; F41.9 Anxiety disorder, unspecified; H91.90 Unspecified hearing loss, unspecified ear; H54.7 Unspecified visual loss; Z85.01 Personal history of malignant neoplasm of esophagus; Z88.8 Allergy status to other drugs, medicaments and biological substances; Z91.02 Food additives allergy status; Z91.040 Latex allergy status; Z79.82 Long term (current) use of aspirin; Z79.899 Other long term (current) drug therapy; R39.9 Unspecified symptoms and signs involving the genitourinary system
CPT/HCPCS: 36415; 71045; 80053; 81001; 83735; 84484; 85025; 86738; 87486; 87581; 87633; 87798; 87804 ×2; 87899; 93005; 96365; 96366; 96375; 99285; A9270 ×4; J1100; J3480 ×2; 71046; 71046-26; 80048; 86140; 94640; 94760; 94761; 97110-GP; 97116-GP; 97162-GP; 97165-GO; 99213; 99223; 99231; 99232; 99239; J0360; J0456; J2060; J3475; J7042; J7050

== ENCOUNTER 2020-08-04 09:21 | Inpatient (IN) | payer MEDICARE, BC ==
[2020-08-04] MEDS ORDERED: Dextrose 5%-0.9% NaCl 1,000 ML IV SCH (10:00)
[2020-08-04] MEDS ORDERED: Acetaminophen 325 MG Tab PO ONE (10:00)
--- NOTE | 2020-08-04 10:05 | EDM.PDOC ---
ED HPI GENERAL MEDICAL PROBLEM - General Chief Complaint: General Stated Complaint: [facility] Time Seen by Provider: 08/04/20 09:54 Source of Information: Reports: Patient, EMS History Limitations: Reports: No Limitations - History of Present Illness INITIAL COMMENTS - FREE TEXT/NARRATIVE: 85-year-old female presents to the ED per [place] [facility]. Patient is believed to be COVID-19 positive. She was tested at the clinic last week but the results are not yet available. She has been gradually getting weaker over the last several days. So weak this morning she could not get out of her bed on her own volition. Identified to be hypoxemic upon arrival to the ED with O2 sats of 86% on room air. Improved to 100% on 2 L. Proximal as well minimally productive cough. Mild nasal congestion. Decreased appetite mild diarrhea. Retention of sense of taste and smell. Intermittent fever chills and diaphoresis. Generalized myalgia. History suggest she went to a of one of her family members about 2 weeks ago and apparently multiple people at that were COVID-19 positive unknown to her. Onset: Gradual Onset Date: 07/28/20 (Believes she has been sick for about a week.) Duration: Day(s):, Getting Worse Location: Reports: Chest (Shortness of breath), Generalized ( paroxysmal minimally productive cough.), Other ( Generalized myalgia mild headache. Decreased appetite mild diarrhea) Quality: Reports: Ache (Generalized myalgia.) Severity: Moderate Improves with: Reports: None Worsens with: Reports: Movement Context: Reports: Sick Contact. Denies: Activity, Exercise, Lifting, Trauma (Suspect expect closure to COVID-19 illness at a 2 weeks ago), Other Associated Symptoms: Reports: Cough, cough w sputum, Diaphoresis, Fever/Chills, Loss of Appetite, Malaise, Shortness of Breath, Weakness (Week this morning she could not get out of bed on her own volition.). 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 - Related Data Allergies Allergy/AdvReac Type Severity Reaction Status Date / Time latex Allergy Rash Verified 08/04/20 14:44 atorvastatin calcium AdvReac Muscle Verified 08/04/20 14:44 [From Lipitor] Aches doxycycline AdvReac Vomiting Verified 08/04/20 14:44 rosuvastatin calcium AdvReac Muscle Verified 08/04/20 14:44 [From Crestor] Aches simvastatin [From Zocor] AdvReac Muscle Verified 08/04/20 14:44 Aches wheat AdvReac Other Verified 08/04/20 14:44 Home Meds: Home Meds Aspirin [Low Dose Aspirin EC] 81 mg PO DAILY 02/27/14 [History] Denosumab [Prolia] 60 mg SQ ASDIRECTED 02/27/14 [History] Ubidecarenone [Coenzyme Q10] 100 mg PO DAILY 02/27/14 [History] Cholecalciferol (Vitamin D3) [Vitamin D3] 1,000 units PO DAILY 10/11/14 [History] Vitamin B Complex [B Complex] 1 tab PO DAILY 03/28/15 [History] Albuterol [Ventolin HFA] 2 puff INH Q4H PRN 11/18/17 [History] Benzonatate [Tessalon Perle] 200 mg PO QID PRN 11/18/17 [History] Gabapentin [Neurontin] 300 mg PO BEDTIME 11/18/17 [History] Nitroglycerin 0.4 mg SL ASDIRECTED PRN 11/18/17 [History] ALPRAZolam [Alprazolam] 0.25 mg PO Q12HR PRN 11/21/17 [History] Lovastatin [Mevacor] 80 mg PO BEDTIME 11/21/17 [History] Metoprolol Tartrate 50 mg PO BIDMEALS 11/21/17 [History] Spironolactone [Aldactone] 25 mg PO DAILY 11/21/17 [History] amLODIPine Besylate [Amlodipine Besylate] 10 mg PO DAILY 11/21/17 [History] Aloe Vera 500 mg PO DAILY 08/04/20 [History] Budesonide/Formoterol Fumarate [Budesonide-Formoterol 80-4.5] 2 puff INH BID 08/04/20 [History] Celecoxib [CeleBREX] 200 mg PO DAILY 08/04/20 [History] Docusate Sodium [Colace] 150 mg PO DAILY 08/04/20 [History] Ezetimibe [Zetia] 10 mg PO DAILY 08/04/20 [History] Fluticasone Propionate [Flonase] 1 spray LINDA BID 08/04/20 [History] Furosemide [Lasix] 20 mg PO DAILY PRN 08/04/20 [History] Lactobacillus Rhamnosus GG [Culturelle] 1 cap PO DAILY 08/04/20 [History] Lidocaine 5% [Lidoderm 5%] 1 patch TOP DAILY 08/04/20 [History] Losartan [Cozaar] 50 mg PO BID 08/04/20 [History] Meclizine [Antivert] 25 mg PO Q4HR PRN 08/04/20 [History] Polyethylene Glycol/Polyvinyl [Hypotears Eye Drops] 1 drop EYEBOTH DAILY PRN 08/04/20 [History] Primidone [Mysoline] 300 mg PO BID 08/04/20 [History] Zinc 50 mg PO DAILY 08/04/20 [History] traMADol [Ultram] 50 - 100 mg PO BID 08/04/20 [History] valACYclovir [Valtrex] 1,000 mg PO TID 08/04/20 [History] Past Medical History HEENT History: Reports: Cataract Other HEENT History: needs glasses for reading Cardiovascular History: Reports: High Cholesterol, Hypertension, [place] Other Cardiovascular History: with stents Respiratory History: Reports: Asthma, Pneumonia, Recurrent, Sleep Apnea, Other (See Below) Other Respiratory History: does not use any c-pap at home Gastrointestinal History: Reports: Chronic Constipation Other Gastrointestinal History: stool softener and laxative she takes at home bid 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 Neurological History: Reports: Other (See Below) Other Neuro History: pt states she has tremors Psychiatric History: Reports: Anxiety Endocrine/Metabolic History: Reports: Other (See Below) Other Endocrine/Metabolic History: says she has a goiter problem many years ago Other Hematologic History: SPLEEN REMOVED IN 1989 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 Other Oncologic History: SKIN CA ON NECK Other Dermatologic History: itchy bumps on skin. Pt thinks it is dermatitis - Infectious Disease History Infectious Disease History: Reports: Measles - Past Surgical History HEENT Surgical History: Reports: Cataract Surgery Cardiovascular Surgical History: Reports: Other (See Below) Endocrine Surgical History: Reports: None Musculoskeletal Surgical History: Reports: Knee Replacement Social & Family History - Family History Family Medical History: No Pertinent Family History - Caffeine Use Caffeine Use: Reports: Coffee, Tea Other Caffeine Use: decaff Caffeine Use Comment: she states that she drinks de-caf coffee - Living Situation & Occupation Living situation: Reports: Occupation: Retired ED ROS GENERAL - Review of Systems Review Of Systems: See Below Constitutional: Reports: Fever, Chills, Malaise, Weakness, Fatigue, Night Sweats, Diaphoresis, Decreased Appetite, Weight Loss HEENT: Reports: Glasses, Other (Nasal congestion with current illness.) Respiratory: Reports: Shortness of Breath, Cough. Denies: Wheezing, Pleuritic Chest Pain, Sputum, Hemoptysis Cardiovascular: Reports: Blood Pressure Problem, Dyspnea on Exertion, Palpitations. Denies: Chest Pain (Is mild minimally productive cough), Claudication, Edema, Lightheadedness, Orthopnea Endocrine: Reports: Fatigue GI/Abdominal: Reports: Diarrhea (Once to twice daily. Loose), Decreased Appetite ( and yellow diarrhea.). Denies: Difficulty Swallowing, Distension, Flatus, Hematemesis, Hematochezia, Melena, Nausea, Vomiting : Reports: Frequency, Incontinence (GEN stress components.) Musculoskeletal: Reports: Neck Pain, Shoulder Pain, Back Pain, Joint Pain (Knees and hips.), Muscle Pain Skin: Reports: No Symptoms Neurological: Reports: Difficulty Walking (To weakness.), Weakness. Denies: Confusion, Dizziness, Headache, Numbness, Syncope, Tingling Psychiatric: Reports: No Symptoms Hematologic/Lymphatic: Reports: No Symptoms Immunologic: Reports: No Symptoms ED EXAM, GENERAL - Physical Exam Exam: See Below Exam Limited By: No Limitations General Appearance: Alert, WD/WN, No Apparent Distress, Other (Patient does feel warm to palpation. Temperature is recorded is 37.3. Patient feels warmer than this. Heart rate was 84 and irregularly irregular. Respiratory rate of 20 to 22/min with O2 sats of 88% room air. Improved to 97% on 2 L. Blood pressure mildly elevated 170/68.) Eye Exam: Bilateral Eye: Normal Inspection, PERRL (Mild blepharal pallor. No scleral icterus.) Ears: Normal TMs Nose: Nasal Drainage Throat/Mouth: Normal Lips ( mildly dry.), Normal Oropharynx, Other (Drainage. Tongue is). No: Normal Teeth Head: Atraumatic, Normocephalic Neck: Normal Inspection, Limited Range of Motion, Tender Lateral. No: Supple, Non-Tender, Lymphadenopathy (L), Lymphadenopathy (R), Tender Midline (Her bilateral aspect of her cervical spine to palpation.), Thyromegaly Respiratory/Chest: Lungs Clear, Respiratory Distress, Decreased Breath Sounds (Breath sounds to lower 20% of lung [place] bilaterally. No adventitious sounds noted) Cardiovascular: No Edema, No Gallop, No Murmur, No Rub, Tachycardia (Irregular irregular heartbeat clinically is atrial fibrillation with occasional rate up to 150/min). No: Normal Peripheral Pulses, Regular Rate, Rhythm Peripheral Pulses: 2+: Carotid (L), Carotid (R), Posterior Tibial (L), Posterior Tibial (R), Dorsalis Pedis (L), Dorsalis Pedis (R) GI/Abdominal: Normal Bowel Sounds, Soft, Non-Tender, No Organomegaly, Pelvis Stable, Other (Evidence of midline laparotomy wound from xiphisternum to umbilicus. 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 No: CVA Tenderness (L), CVA Tenderness (R) Extremities: Normal Inspection, No Pedal Edema, Other. No: Pedal Edema Neurological: Alert, Oriented, CN II-XII Intact, Normal Cognition Psychiatric: Normal Affect, Normal Mood Skin Exam: Warm, Dry, Intact, Normal Color, Other #1 Interpretation EKG Date: 08/04/20 Time: 09:50 Rhythm: A-Fib (With rate of 70 to 150/min) Rate (Beats/Min): 81 [place]: Normal P-Wave: Variable QRS: Other (Q waves V1 V2 and near Q wave V3 and V4 suggesting old anterior septal myocardial infarction. Decreased voltage limb leads.) ST-T: Other (Diffuse early repolarization pattern.) QT: Normal EKG Interpretation Comments: Abnormal ECG Course - Vital Signs Last Recorded V/S: Last Vital Signs Temp 36.8 C 08/04/20 14:29 Pulse 72 08/04/20 14:29 Resp 27 H 08/04/20 19:00 BP 143/90 H 08/04/20 14:29 Pulse Ox 98 08/04/20 14:29 - Orders/Labs/Meds Orders: Active Orders 24 hr Category Date Time Status CULTURE BLOOD [BC] Stat Lab 08/04/20 11:02 Received CULTURE BLOOD [BC] Stat Lab 08/04/20 11:23 Received Blood Culture x2 Reflex Set [OM.PC] Stat Oth 08/04/20 10:01 Ordered Blood Culture x2 Reflex Set [OM.PC] Stat Oth 08/04/20 10:03 Ordered Medication Orders Acetaminophen (Tylenol) 650 mg PO Q4H PRN PRN Reason: Pain (Mild 1-3)/fever Albuterol (Proventil Neb Soln) 2.5 mg NEB Q2H PRN PRN Reason: Shortness Of Breath/wheezing Dexamethasone (Dexamethasone) 6 mg PO Q24H [facility] Stop: 08/13/20 16:01 Last Admin: 08/04/20 16:56 Dose: 6 mg Documented by: SREEKANTH Docusate Sodium (Colace) 100 mg PO BID PRN PRN Reason: Constipation Enoxaparin Sodium (Lovenox) 30 mg SUBCUT Q12H [facility] Last Admin: 08/04/20 16:56 Dose: 30 mg Documented by: SREEKANTH Remdesivir 100 mg/ Sodium (Chloride) 100 mls @ 100 mls/hr IV Q24H [facility] Stop: 08/08/20 16:59 Azithromycin 500 mg/ Sodium (Chloride) 250 mls @ 250 mls/hr IV Q24H [facility] Stop: 08/06/20 17:59 Last Admin: 08/04/20 17:38 Dose: 250 mls/hr Documented by: SREEKANTH Ceftriaxone Sodium 2 gm/ (Sodium Chloride) 100 mls @ 200 mls/hr IV Q24H [facility] Stop: 08/08/20 18:29 Last Admin: 08/04/20 17:43 Dose: 200 mls/hr Documented by: SREEKANTH Ondansetron HCl (Zofran) 4 mg IV Q4H PRN PRN Reason: Nausea/Vomiting Sodium Chloride (Saline Flush) 10 ml FLUSH ASDIRECTED PRN PRN Reason: Keep Vein Open Labs: Laboratory Tests 08/04/20 08/04/20 08/04/20 Range/Units 10:25 10:55 11:02 WBC 14.19 H (3.98-10.04) K/mm3 RBC 4.06 (3.98-5.22) M/mm3 Hgb 12.4 (11.2-15.7) gm/dl Hct 37.0 (34.1-44.9) % MCV 91.1 D (79.4-94.8) fl MCH 30.5 (25.6-32.2) pg MCHC 33.5 (32.2-35.5) g/dl RDW Std Deviation 47.2 H (36.4-46.3) fL Plt Count 244 D (182-369) K/mm3 MPV 10.3 (9.4-12.3) fl Neut % (Auto) 21.6 L (34.0-71.1) % Lymph % (Auto) 13.2 L (19.3-51.7) % Ogle % (Auto) 64.6 H (4.7-12.5) % Eos % (Auto) 0.4 L (0.7-5.8) Baso % (Auto) 0.2 (0.1-1.2) % Neut # (Auto) 3.05 (1.56-6.13) K/mm3 Lymph # (Auto) 1.88 (1.18-3.74) K/mm3 Ogle # (Auto) 9.17 H (0.24-0.36) K/mm3 Eos # (Auto) 0.06 (0.04-0.36) K/mm3 Baso # (Auto) 0.03 (0.01-0.08) K/mm3 Manual Slide Review Abnormal smear PT (9.7-12.0) SECONDS INR APTT (21.7-31.4) SECONDS D-Dimer, Quantitative (0.19-0.50) mg/L Sodium (136-145) mEq/L Potassium (3.5-5.1) mEq/L Chloride (98-107) mEq/L Carbon Dioxide (21-32) mEq/L Anion Gap (5-15) BUN (7-18) mg/dL Creatinine (0.55-1.02) mg/dL Est Cr Clr Drug Dosing mL/min Estimated GFR (MDRD) (>60) mL/min BUN/Creatinine Ratio (14-18) Glucose (83-115) mg/dL Lactic Acid (0.4-2.0) mmol/L Calcium (8.5-10.1) mg/dL Magnesium (1.8-2.4) mg/dl Ferritin (8-252) ng/ml Total Bilirubin (0.2-1.0) mg/dL AST (15-37) U/L ALT (14-59) U/L Alkaline Phosphatase (46-116) U/L Lactate Dehydrogenase (81-234) U/L CK-MB (CK-2) (0-3.6) ng/ml Troponin I (0.00-0.056) ng/mL C-Reactive Protein (<1.0) mg/dL NT-Pro-B Natriuret Pep (0-450) pg/mL Total Protein (6.4-8.2) g/dl Albumin (3.4-5.0) g/dl Globulin gm/dL Albumin/Globulin Ratio (1-2) Urine Color Yellow (Yellow) Urine Appearance Clear (Clear) Urine pH 6.0 (5.0-8.0) Ur Specific [place] 1.025 (1.005-1.030) Urine Protein Trace H (Negative) Urine Glucose (UA) Negative (Negative) Urine Ketones 3+ H (Negative) Urine Occult Blood Trace-lysed H (Negative) Urine Nitrite Negative (Negative) Urine Bilirubin Negative (Negative) Urine Urobilinogen 0.2 (0.2-1.0) Ur Leukocyte Esterase Negative (Negative) Urine RBC 5-10 H (0-5) /hpf Urine WBC 0-5 (0-5) /hpf Ur Squamous Epith Cells 0-5 (0-5) /hpf Urine Bacteria Few (FEW) /hpf Urine Mucus Not seen (FEW) /hpf SARS-CoV-2 RNA (IRMA) Positive H (NEGATIVE) Blood Type 08/04/20 08/04/20 08/04/20 Range/Units 11:02 11:02 11:02 WBC (3.98-10.04) K/mm3 RBC (3.98-5.22) M/mm3 Hgb (11.2-15.7) gm/dl Hct (34.1-44.9) % MCV (79.4-94.8) fl MCH (25.6-32.2) pg MCHC (32.2-35.5) g/dl RDW Std Deviation (36.4-46.3) fL Plt Count (182-369) K/mm3 MPV (9.4-12.3) fl Neut % (Auto) (34.0-71.1) % Lymph % (Auto) (19.3-51.7) % Ogle % (Auto) (4.7-12.5) % Eos % (Auto) (0.7-5.8) Baso % (Auto) (0.1-1.2) % Neut # (Auto) (1.56-6.13) K/mm3 Lymph # (Auto) (1.18-3.74) K/mm3 Ogle # (Auto) (0.24-0.36) K/mm3 Eos # (Auto) (0.04-0.36) K/mm3 Baso # (Auto) (0.01-0.08) K/mm3 Manual Slide Review PT 12.0 (9.7-12.0) SECONDS INR 1.12 APTT 29.5 (21.7-31.4) SECONDS D-Dimer, Quantitative (0.19-0.50) mg/L Sodium 126 L (136-145) mEq/L Potassium 4.1 (3.5-5.1) mEq/L Chloride 89 L (98-107) mEq/L Carbon Dioxide 28 (21-32) mEq/L Anion Gap 13.1 (5-15) BUN 8 (7-18) mg/dL Creatinine 0.6 (0.55-1.02) mg/dL Est Cr Clr Drug Dosing 48.34 mL/min Estimated GFR (MDRD) > 60 (>60) mL/min BUN/Creatinine Ratio 13.3 L (14-18) Glucose 125 H (83-115) mg/dL Lactic Acid 1.4 (0.4-2.0) mmol/L Calcium 8.0 L (8.5-10.1) mg/dL Magnesium 2.0 (1.8-2.4) mg/dl Ferritin (8-252) ng/ml Total Bilirubin 0.5 (0.2-1.0) mg/dL AST 24 (15-37) U/L ALT 25 (14-59) U/L Alkaline Phosphatase 67 (46-116) U/L Lactate Dehydrogenase 221 (81-234) U/L CK-MB (CK-2) 0.9 (0-3.6) ng/ml Troponin I 0.019 (0.00-0.056) ng/mL C-Reactive Protein 18.7 H* (<1.0) mg/dL NT-Pro-B Natriuret Pep (0-450) pg/mL Total Protein 7.2 (6.4-8.2) g/dl Albumin 2.8 L (3.4-5.0) g/dl Globulin 4.4 gm/dL Albumin/Globulin Ratio 0.6 L (1-2) Urine Color (Yellow) Urine Appearance (Clear) Urine pH (5.0-8.0) Ur Specific [place] (1.005-1.030) Urine Protein (Negative) Urine Glucose (UA) (Negative) Urine Ketones (Negative) Urine Occult Blood (Negative) Urine Nitrite (Negative) Urine Bilirubin (Negative) Urine Urobilinogen (0.2-1.0) Ur Leukocyte Esterase (Negative) Urine RBC (0-5) /hpf Urine WBC (0-5) /hpf Ur Squamous Epith Cells (0-5) /hpf Urine Bacteria (FEW) /hpf Urine Mucus (FEW) /hpf SARS-CoV-2 RNA (IRMA) (NEGATIVE) Blood Type 08/04/20 08/04/20 08/04/20 Range/Units 11:02 11:02 11:30 WBC (3.98-10.04) K/mm3 RBC (3.98-5.22) M/mm3 Hgb (11.2-15.7) gm/dl Hct (34.1-44.9) % MCV (79.4-94.8) fl MCH (25.6-32.2) pg MCHC (32.2-35.5) g/dl RDW Std Deviation (36.4-46.3) fL Plt Count (182-369) K/mm3 MPV (9.4-12.3) fl Neut % (Auto) (34.0-71.1) % Lymph % (Auto) (19.3-51.7) % [place]gle % (Auto) (4.7-12.5) % Eos % (Auto) (0.7-5.8) Baso % (Auto) (0.1-1.2) % Neut # (Auto) (1.56-6.13) K/mm3 Lymph # (Auto) (1.18-3.74) K/mm3 Ogle # (Auto) (0.24-0.36) K/mm3 Eos # (Auto) (0.04-0.36) K/mm3 Baso # (Auto) (0.01-0.08) K/mm3 Manual Slide Review PT (9.7-12.0) SECONDS INR APTT (21.7-31.4) SECONDS D-Dimer, Quantitative 1.03 H (0.19-0.50) mg/L Sodium (136-145) mEq/L Potassium (3.5-5.1) mEq/L Chloride (98-107) mEq/L Carbon Dioxide (21-32) mEq/L Anion Gap (5-15) BUN (7-18) mg/dL Creatinine (0.55-1.02) mg/dL Est Cr Clr Drug Dosing mL/min Estimated GFR (MDRD) (>60) mL/min BUN/Creatinine Ratio (14-18) Glucose (83-115) mg/dL Lactic Acid (0.4-2.0) mmol/L Calcium (8.5-10.1) mg/dL Magnesium (1.8-2.4) mg/dl Ferritin 142 (8-252) ng/ml Total Bilirubin (0.2-1.0) mg/dL AST (15-37) U/L ALT (14-59) U/L Alkaline Phosphatase (46-116) U/L Lactate Dehydrogenase (81-234) U/L CK-MB (CK-2) (0-3.6) ng/ml Troponin I (0.00-0.056) ng/mL C-Reactive Protein (<1.0) mg/dL NT-Pro-B Natriuret Pep 2163 H (0-450) pg/mL Total Protein (6.4-8.2) g/dl Albumin (3.4-5.0) g/dl Globulin gm/dL Albumin/Globulin Ratio (1-2) Urine Color (Yellow) Urine Appearance (Clear) Urine pH (5.0-8.0) Ur Specific [place] (1.005-1.030) Urine Protein (Negative) Urine Glucose (UA) (Negative) Urine Ketones (Negative) Urine Occult Blood (Negative) Urine Nitrite (Negative) Urine Bilirubin (Negative) Urine Urobilinogen (0.2-1.0) Ur Leukocyte Esterase (Negative) Urine RBC (0-5) /hpf Urine WBC (0-5) /hpf Ur Squamous Epith Cells (0-5) /hpf Urine Bacteria (FEW) /hpf Urine Mucus (FEW) /hpf SARS-CoV-2 RNA (IRMA) (NEGATIVE) Blood Type 08/04/20 Range/Units 11:30 WBC (3.98-10.04) K/mm3 RBC (3.98-5.22) M/mm3 Hgb (11.2-15.7) gm/dl Hct (34.1-44.9) % MCV (79.4-94.8) fl MCH (25.6-32.2) pg MCHC (32.2-35.5) g/dl RDW Std Deviation (36.4-46.3) fL Plt Count (182-369) K/mm3 MPV (9.4-12.3) fl Neut % (Auto) (34.0-71.1) % Lymph % (Auto) (19.3-51.7) % [place] % (Auto) (4.7-12.5) % Eos % (Auto) (0.7-5.8) Baso % (Auto) (0.1-1.2) % Neut # (Auto) (1.56-6.13) K/mm3 Lymph # (Auto) (1.18-3.74) K/mm3 [place] # (Auto) (0.24-0.36) K/mm3 Eos # (Auto) (0.04-0.36) K/mm3 Baso # (Auto) (0.01-0.08) K/mm3 Manual Slide Review PT (9.7-12.0) SECONDS INR APTT (21.7-31.4) SECONDS D-Dimer, Quantitative (0.19-0.50) mg/L Sodium (136-145) mEq/L Potassium (3.5-5.1) mEq/L Chloride (98-107) mEq/L Carbon Dioxide (21-32) mEq/L Anion Gap (5-15) BUN (7-18) mg/dL Creatinine (0.55-1.02) mg/dL Est Cr Clr Drug Dosing mL/min Estimated GFR (MDRD) (>60) mL/min BUN/Creatinine Ratio (14-18) Glucose (83-115) mg/dL Lactic Acid (0.4-2.0) mmol/L Calcium (8.5-10.1) mg/dL Magnesium (1.8-2.4) mg/dl Ferritin (8-252) ng/ml Total Bilirubin (0.2-1.0) mg/dL AST (15-37) U/L ALT (14-59) U/L Alkaline Phosphatase (46-116) U/L Lactate Dehydrogenase (81-234) U/L CK-MB (CK-2) (0-3.6) ng/ml Troponin I (0.00-0.056) ng/mL C-Reactive Protein (<1.0) mg/dL NT-Pro-B Natriuret Pep (0-450) pg/mL Total Protein (6.4-8.2) g/dl Albumin (3.4-5.0) g/dl Globulin gm/dL Albumin/Globulin Ratio (1-2) Urine Color (Yellow) Urine Appearance (Clear) Urine pH (5.0-8.0) Ur Specific [place] (1.005-1.030) Urine Protein (Negative) Urine Glucose (UA) (Negative) Urine Ketones (Negative) Urine Occult Blood (Negative) Urine Nitrite (Negative) Urine Bilirubin (Negative) Urine Urobilinogen (0.2-1.0) Ur Leukocyte Esterase (Negative) Urine RBC (0-5) /hpf Urine WBC (0-5) /hpf Ur Squamous Epith Cells (0-5) /hpf Urine Bacteria (FEW) /hpf Urine Mucus (FEW) /hpf SARS-CoV-2 RNA (IRMA) (NEGATIVE) Blood Type A POSITIVE Meds: Medications Generic Name Dose Route Start Last Admin Trade Name Freq PRN Reason Stop Dose Admin Acetaminophen 650 mg 08/04/20 14:21 Tylenol PO Q4H PRN Pain (Mild 1-3)/fever Albuterol 2.5 mg 08/04/20 14:21 Proventil Neb Soln NEB Q2H PRN Shortness Of Breath/wheezing Dexamethasone 6 mg 08/04/20 16:00 08/04/20 16:56 Dexamethasone PO 08/13/20 16:01 6 mg Q24H ROBE Administration Docusate Sodium 100 mg 08/04/20 14:21 Colace PO BID PRN Constipation Enoxaparin Sodium 30 mg 08/04/20 14:45 08/04/20 16:56 Lovenox SUBCUT 30 mg Q12H ROBE Administration Remdesivir 100 mg/ Sodium 100 mls @ 100 mls/hr 08/05/20 16:00 Chloride IV 08/08/20 16:59 Q24H ROBE Azithromycin 500 mg/ Sodium 250 mls @ 250 mls/hr 08/04/20 17:00 08/04/20 17:38 Chloride IV 08/06/20 17:59 250 mls/hr Q24H ROBE Administration Ceftriaxone Sodium 2 gm/ 100 mls @ 200 mls/hr 08/04/20 18:00 08/04/20 17:43 Sodium Chloride IV 08/08/20 18:29 200 mls/hr Q24H ROBE Administration Ondansetron HCl 4 mg 08/04/20 14:21 Zofran IV Q4H PRN Nausea/Vomiting Sodium Chloride 10 ml 08/04/20 14:21 Saline Flush FLUSH ASDIRECTED PRN Keep Vein Open Discontinued Medications Generic Name Dose Route Start Last Admin Trade Name Freq PRN Reason Stop Dose Admin Acetaminophen 975 mg 08/04/20 10:00 08/04/20 10:52 Tylenol PO 08/04/20 10:01 975 mg ONETIME ONE Administration Furosemide 40 mg 08/04/20 15:10 Lasix IVPUSH 08/04/20 17:00 NOW [facility] Dextrose/Sodium Chloride 1,000 mls @ 150 mls/hr 08/04/20 10:00 08/04/20 10:51 Dextrose 5%-Normal Saline IV 150 mls/hr ASDIRECTED ROBE Administration Remdesivir 200 mg/ Sodium 250 mls @ 250 mls/hr 08/04/20 14:32 08/04/20 16:54 Chloride IV 08/04/20 14:33 250 mls/hr ONETIME ONE Administration - Radiology Interpretation Free Text/Narrative:: 85-year-old female presents to the ED per [place] [facility] due to generalized weakness. Too weak to get out of bed this morning. Her daughter apparently lives with her. Suspect COVID-19 illness with exposure from other family members at a 2 weeks ago. She has had nasal congestion intermittent fever chills diaphoresis. Loss of appetite. Minimal diarrhea. Paroxysmal minimally productive cough. Dyspnea on minimal exertion. On exam she is warm to palpation. Given Tylenol 975 mg p.o. O2 sats were 88% on room air. Started on oxygen per nasal cannula at 2 L/min. COVID-19 screen to be done since apparently she had one at the clinic last week but the results are not yet available. Routine labs including serum ferritin LDH lactic acid and D-dimer. Chest x-ray and ECG to be done. IV D5 normal saline at 125 mils per hour. - Re-Assessments/Exams Free Text/Narrative Re-Assessment/Exam: 08/04/20 11:03 Portable chest x-ray reveals a mild increase in interstitial lung markings bilaterally. There is a nodular airspace opacity within the right midlung zone. Findings Suggest a pneumonic infiltrate. Consider atypical viral etiology. Pleural spaces otherwise unremarkable with no pleural effusion or pneumothorax. Heart size is mildly prominent. 08/04/20 12:30: White count is elevated at 14.19. Auto differential shows 21.6% neutrophils a neutral jeffrey. Elevated monocytes at 64.6 concerning for an underlying leukemia. Hemoglobin is 12.4 with hematocrit of 37.0. Platelet count 244,000. The smear shows 1+ anisocytosis with a monocytosis. PT is 12.0 with an INR of 1.12. PTT is 29.5. D-dimer 1.03. Sodium low at 126. Potassium is 4.1. Chloride is 89 with a bicarb of 28. Anion gap is 13.1. BUN is 8 with a creatinine of 0.6 and a GFR greater than 60. Glucose 125. Lactic acid 1.4. Calcium 8.0 low. Magnesium normal at 2.0. Serum ferritin 142. Liver function is normal. LDH is 221. CK-MB fraction 0.9 with a troponin I of 0.019. C- reactive protein elevated at 18.7. BNP elevated at 2163. Total protein 7.2 with an albumin fraction low at 2.8. Urinalysis shows 3+ ketones trace of lysed occult blood 5-10 RBCs but no signs of infection. Patient is COVID-19 positive. Patient is going to require admission to the hospital due to gene ralized weakness. She cannot ambulate even in her own room with assist of nurse. Shuffling type gait. Needs correction of hyponatremia. Mild hypoxia improved on 3 L/min by nasal cannula O2 sats are ranging between 90 to 96%. Blood pressure is 122 61. Heart rate is 69 is sinus. I will discuss case with on-call hospitalist Dr. Draper with a view to admission to the hospital. 08/04/20 13:40 I have spoken with on-call hospitalist Dr. Calvillo and he is accepted care of this patient. She is COVID-19 positive. She has mild hypoxemia and requires 2 to 3 L/min by nasal cannula at this time to maintain O2 sats of 92 to 96%. She is mildly hyponatremic at 126 which is making her have generalized weakness in her lower extremities. She is unable to walk on her own volition and she is a high fall risk. Mild associated congestive heart failure. Note that there is a significant abnormality of the white blood cell differential. Concern for very elevated monocytes are suggestive of a under lying leukemia. It is unclear whether or not COVID-19 illness can cause a monocytosis to this degree. I have asked for labs to be sent over from [facility] to report previous differential of white cell count over the last year or so. Hematology consult may be required if no acute change occurs in the monocyte level over the next 2 weeks. Departure - Departure Time of Disposition: 14:20 Disposition: Admitted As Inpatient 65 Condition: Fair Clinical Impression: Reactive monocytosis, COVID-19 determined by clinical diagnostic criteria, Hypoxia, Hyponatremia Leukocytosis, unspecified Qualifiers: Leukocytosis type: monocytosis Qualified Code(s): D72.821 - Monocytosis (symptomatic) - Discharge Information *PRESCRIPTION DRUG MONITORING PROGRAM REVIEWED*: Not Applicable *COPY OF PRESCRIPTION DRUG MONITORING REPORT IN PATIENT PRISCILLA: Not Applicable Sepsis Event Note (ED) - Evaluation Sepsis Screening Result: No Definite Risk - Focused Exam Vital Signs: Vital Signs Temp Temp Pulse Resp BP Pulse Ox 08/04/20 14:00 37.2 C 71 23 H 132/59 L 97 08/04/20 10:52 37.3 C 08/04/20 09:40 37.3 C 84 20 170/68 H 91 L - My Orders Last 24 Hours: My Active Orders 08/04/20 10:01 Blood Culture x2 Reflex Set [OM.PC] Stat 08/04/20 10:03 Blood Culture x2 Reflex Set [OM.PC] Stat 08/04/20 11:02 CULTURE BLOOD [BC] Stat 08/04/20 11:23 CULTURE BLOOD [BC] Stat - Assessment/Plan Last 24 Hours: My Active Orders 08/04/20 10:01 Blood Culture x2 Reflex Set [OM.PC] Stat 08/04/20 10:03 Blood Culture x2 Reflex Set [OM.PC] Stat 08/04/20 11:02 CULTURE BLOOD [BC] Stat 08/04/20 11:23 CULTURE BLOOD [BC] Stat
--- NOTE | 2020-08-04 13:59 | CR ---
PROCEDURE INFORMATION: Exam: XR Chest, 1 View Exam date and time: 08/04/2020 10:07 AM Age: 85 years old Clinical indication: Cough and dyspnea and fever; Patient HX: Covid 19 suspect. TECHNIQUE: Imaging protocol: XR of the chest Views: 1 view. COMPARISON: DX Chest 2V 06/07/2017 10:57 AM FINDINGS: Lungs: There is mild increase in interstitial markings within the lungs. This is nonspecific. There is nodular airspace opacity within the right midlung zone. Findings could represent pneumonia. Consider atypical/viral etiologies. Pleural space: Unremarkable. No pleural effusion. No pneumothorax. Heart/Mediastinum: Heart size is mildly prominent. Bones/joints: Unremarkable. IMPRESSION: 1. Chronic appearing interstitial change with nodular airspace opacity in the periphery of the right midlung zone. Pneumonia a, including atypical/viral etiologies possible. Thank you for allowing us to participate in the care of your patient. Dictated and Authenticated by: Reed Donovan MD 08/04/2020 11:59 AM Central Time ([place] & [place]) [email or web address]
[2020-08-04] MEDS ORDERED: Albuterol 0.083% 2.5 MG/3 ML Neb Soln NEB PRN (14:21)
[2020-08-04] MEDS ORDERED: Sodium Chloride 0.9% 10 ML Syringe FLUSH PRN (14:21)
[2020-08-04] MEDS ORDERED: Ondansetron 4 MG/2 ML SDV IV PRN (14:21)
[2020-08-04] MEDS ORDERED: REMDESIVIR 200 MG in Sodium Chloride 0.9% 250 ML IV ONE (14:32)
[2020-08-04] MEDS ORDERED: Enoxaparin 30 MG/0.3 ML Syringe SUBCUT SCH (14:45)
[2020-08-04] MEDS ORDERED: Furosemide 40 MG/4 ML VIAL IVPUSH SCH (15:10)
--- NOTE | 2020-08-04 15:12 | PCM.HP.2 ---
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 Mortality Measure Prognosis:: Poor
[2020-08-04] MEDS: Dexamethasone 4 MG Tab PO SCH (16:56)
[2020-08-04] MEDS: Azithromycin 500 MG in Sodium Chloride 0.9% 250 ML IV SCH (17:38)
[2020-08-04] MEDS: cefTRIAXone 2 GM in Sodium Chloride 0.9% 100 ML IV SCH (17:43)
[2020-08-04] MEDS ORDERED: Sodium Chloride 0.9% 250 ML ONE (20:58)
[2020-08-04] MEDS ORDERED: Furosemide 20 MG/2 ML VIAL IVPUSH ONE (22:00)
[2020-08-05] MEDS ORDERED: Diltiazem 50 MG/10 ML SDV IVPUSH ONE ×2 (03:23→04:04)
[2020-08-05] MEDS ORDERED: Aluminum Hydroxide/Magnesium Hydroxide/Simethicone Susp 30 ML Cup PO PRN (04:11)
[2020-08-05] MEDS ORDERED: Diltiazem 100 MG in Sodium Chloride 0.9% 100 ML IV SCH (05:00)
[2020-08-05] MEDS: Enoxaparin 30 MG/0.3 ML Syringe SUBCUT SCH ×2 (05:27→17:33)
[2020-08-05] MEDS ORDERED: Metoprolol Tartrate 5 MG/5 ML SDV IVPUSH ONE (07:46)
[2020-08-05] MEDS: Famotidine 20 MG/2 ML SDV IVPUSH ONE ×2 (07:57→09:43)
[2020-08-05] MEDS: Metoprolol Tartrate 50 MG Tab PO SCH ×2 (08:25→17:23)
[2020-08-05] MEDS: Potassium Chloride 10 MEQ in Premix Bag 1 BAG IV SCH ×4 (08:26→12:51)
[2020-08-05] MEDS: Calcium Carbonate 500 MG Tab.Chew PO PRN (14:08)
--- NOTE | 2020-08-05 17:14 | PCM.PN ---
- General Info Date of Service: 08/05/20 Admission Dx/Problem (Free Text): Admission Diagnosis/Problem Admission Diagnosis/Problem Weakness Subjective Update: I was called at 3:00 this morning with patient in A. fib RVR. Patient had not received her medications for at least 24 hours which included metoprolol. Patient does not have a history of atrial fibrillation. Patient was given Cardizem 10 mg IV push x2 and started on a Cardizem drip without success. This morning she was given Lopressor 2.5 mg IV which brought her heart rate down into the 80s. She was restarted back on her home dose of metoprolol, but she had another recurrence of A. fib with RVR this afternoon requiring another Lopressor 2.5 mg IV. Patient was fatigued this morning but this afternoon was feeling better. Functional Status: Reports: Pain Controlled - Review of Systems General: Reports: Fatigue HEENT: Reports: No Symptoms Pulmonary: Reports: Shortness of Breath, Cough Cardiovascular: Reports: Chest Pain Gastrointestinal: Reports: No Symptoms - Patient Data Vitals - Most Recent: Last Vital Signs Temp 98.3 F 08/05/20 16:00 Pulse 79 08/05/20 16:00 Resp 20 08/05/20 16:00 BP 136/71 08/05/20 16:00 Pulse Ox 92 L 08/05/20 16:00 Weight - Most Recent: 135 lb 0.001 oz I&O - Last 24 Hours: Intake & Output 08/05/20 08/05/20 08/05/20 06:59 14:59 22:59 Intake Total 193 1095 Output Total 500 Balance -307 1095 Lab Results Last 24 Hours: Laboratory Results - last 24 hr 08/04/20 08/04/20 08/05/20 Range/Units 11:05 11:30 03:42 WBC 15.10 H (3.98-10.04) K/mm3 RBC 3.94 L (3.98-5.22) M/mm3 Hgb 11.8 (11.2-15.7) gm/dl Hct 36.1 (34.1-44.9) % MCV 91.6 (79.4-94.8) fl MCH 29.9 (25.6-32.2) pg MCHC 32.7 (32.2-35.5) g/dl RDW Std Deviation 47.2 H (36.4-46.3) fL Plt Count 252 (182-369) K/mm3 MPV 10.4 (9.4-12.3) fl Neut % (Auto) 14.2 L (34.0-71.1) % Lymph % (Auto) 16.0 L (19.3-51.7) % Miller % (Auto) 69.6 H (4.7-12.5) % Eos % (Auto) 0 L (0.7-5.8) Baso % (Auto) 0.1 (0.1-1.2) % Neut # (Auto) 2.13 (1.56-6.13) K/mm3 Lymph # (Auto) 2.42 (1.18-3.74) K/mm3 Miller # (Auto) 10.51 H (0.24-0.36) K/mm3 Eos # (Auto) 0.00 L (0.04-0.36) K/mm3 Baso # (Auto) 0.02 (0.01-0.08) K/mm3 Manual Slide Review Abnormal smear Sodium (136-145) mEq/L Potassium (3.5-5.1) mEq/L Chloride (98-107) mEq/L Carbon Dioxide (21-32) mEq/L Anion Gap (5-15) BUN (7-18) mg/dL Creatinine (0.55-1.02) mg/dL Est Cr Clr Drug Dosing mL/min Estimated GFR (MDRD) (>60) mL/min BUN/Creatinine Ratio (14-18) Glucose (83-115) mg/dL Serum Osmolality 271 L (280-300) mosm/kg Calcium (8.5-10.1) mg/dL Magnesium (1.8-2.4) mg/dl Total Bilirubin (0.2-1.0) mg/dL AST (15-37) U/L ALT (14-59) U/L Alkaline Phosphatase (46-116) U/L Troponin I (0.00-0.056) ng/mL NT-Pro-B Natriuret Pep (0-450) pg/mL Total Protein (6.4-8.2) g/dl Albumin (3.4-5.0) g/dl Globulin gm/dL Albumin/Globulin Ratio (1-2) Blood Type A POSITIVE 08/05/20 08/05/20 08/05/20 Range/Units 03:42 03:42 03:42 WBC (3.98-10.04) K/mm3 RBC (3.98-5.22) M/mm3 Hgb (11.2-15.7) gm/dl Hct (34.1-44.9) % MCV (79.4-94.8) fl MCH (25.6-32.2) pg MCHC (32.2-35.5) g/dl RDW Std Deviation (36.4-46.3) fL Plt Count (182-369) K/mm3 MPV (9.4-12.3) fl Neut % (Auto) (34.0-71.1) % Lymph % (Auto) (19.3-51.7) % Miller % (Auto) (4.7-12.5) % Eos % (Auto) (0.7-5.8) Baso % (Auto) (0.1-1.2) % Neut # (Auto) (1.56-6.13) K/mm3 Lymph # (Auto) (1.18-3.74) K/mm3 Miller # (Auto) (0.24-0.36) K/mm3 Eos # (Auto) (0.04-0.36) K/mm3 Baso # (Auto) (0.01-0.08) K/mm3 Manual Slide Review Sodium 129 L (136-145) mEq/L Potassium 3.2 L (3.5-5.1) mEq/L Chloride 90 L (98-107) mEq/L Carbon Dioxide 28 (21-32) mEq/L Anion Gap 14.2 (5-15) BUN 5 L (7-18) mg/dL Creatinine 0.5 L (0.55-1.02) mg/dL Est Cr Clr Drug Dosing 58.01 mL/min Estimated GFR (MDRD) > 60 (>60) mL/min BUN/Creatinine Ratio 10.0 L (14-18) Glucose 109 (83-115) mg/dL Serum Osmolality (280-300) mosm/kg Calcium 8.0 L (8.5-10.1) mg/dL Magnesium 1.8 (1.8-2.4) mg/dl Total Bilirubin 0.4 (0.2-1.0) mg/dL AST 20 (15-37) U/L ALT 22 (14-59) U/L Alkaline Phosphatase 65 (46-116) U/L Troponin I < 0.017 (0.00-0.056) ng/mL NT-Pro-B Natriuret Pep 3894 H (0-450) pg/mL Total Protein 7.2 (6.4-8.2) g/dl Albumin 2.8 L (3.4-5.0) g/dl Globulin 4.4 gm/dL Albumin/Globulin Ratio 0.6 L (1-2) Blood Type 08/05/20 Range/Units 16:08 WBC (3.98-10.04) K/mm3 RBC (3.98-5.22) M/mm3 Hgb (11.2-15.7) gm/dl Hct (34.1-44.9) % MCV (79.4-94.8) fl MCH (25.6-32.2) pg MCHC (32.2-35.5) g/dl RDW Std Deviation (36.4-46.3) fL Plt Count (182-369) K/mm3 MPV (9.4-12.3) fl Neut % (Auto) (34.0-71.1) % Lymph % (Auto) (19.3-51.7) % Miller % (Auto) (4.7-12.5) % Eos % (Auto) (0.7-5.8) Baso % (Auto) (0.1-1.2) % Neut # (Auto) (1.56-6.13) K/mm3 Lymph # (Auto) (1.18-3.74) K/mm3 Miller # (Auto) (0.24-0.36) K/mm3 Eos # (Auto) (0.04-0.36) K/mm3 Baso # (Auto) (0.01-0.08) K/mm3 Manual Slide Review Sodium (136-145) mEq/L Potassium (3.5-5.1) mEq/L Chloride (98-107) mEq/L Carbon Dioxide (21-32) mEq/L Anion Gap (5-15) BUN (7-18) mg/dL Creatinine (0.55-1.02) mg/dL Est Cr Clr Drug Dosing mL/min Estimated GFR (MDRD) (>60) mL/min BUN/Creatinine Ratio (14-18) Glucose (83-115) mg/dL Serum Osmolality (280-300) mosm/kg Calcium (8.5-10.1) mg/dL Magnesium (1.8-2.4) mg/dl Total Bilirubin (0.2-1.0) mg/dL AST (15-37) U/L ALT (14-59) U/L Alkaline Phosphatase (46-116) U/L Troponin I 0.068 H* (0.00-0.056) ng/mL NT-Pro-B Natriuret Pep (0-450) pg/mL Total Protein (6.4-8.2) g/dl Albumin (3.4-5.0) g/dl Globulin gm/dL Albumin/Globulin Ratio (1-2) Blood Type [place] Results Last 24 Hours: Microbiology 08/04/20 11:23 Aerobic Blood Culture - Preliminary Blood - Venous - Lab Draw NO GROWTH AFTER 1 DAY Anaerobic Blood Culture - Preliminary NO GROWTH AFTER 1 DAY 08/04/20 11:02 Aerobic Blood Culture - Preliminary Blood - Venous NO GROWTH AFTER 1 DAY Anaerobic Blood Culture - Preliminary NO GROWTH AFTER 1 DAY Med Orders - Current: Current Medications Acetaminophen (Tylenol) 650 mg PO Q4H PRN PRN Reason: Pain (Mild 1-3)/fever Al Hydroxide/Mg Hydroxide (Mag-Al Plus) 30 ml PO Q4H PRN PRN Reason: Heartburn Stop: 08/07/20 04:13 Last Admin: 08/05/20 04:23 Dose: 30 ml Documented by: Albuterol (Proventil Neb Soln) 2.5 mg NEB Q2H PRN PRN Reason: Shortness Of Breath/wheezing Calcium Carbonate/Glycine (Tums) 1,000 mg PO Q2H PRN PRN Reason: Indigestion Last Admin: 08/05/20 14:08 Dose: 1,000 mg Documented by: Dexamethasone (Dexamethasone) 6 mg PO Q24H [facility] Stop: 08/13/20 16:01 Last Admin: 08/04/20 16:56 Dose: 6 mg Documented by: Docusate Sodium (Colace) 100 mg PO BID PRN PRN Reason: Constipation Enoxaparin Sodium (Lovenox) 30 mg SUBCUT Q12H [facility] Last Admin: 08/05/20 05:27 Dose: 30 mg Documented by: Remdesivir 100 mg/ Sodium (Chloride) 100 mls @ 100 mls/hr IV Q24H [facility] Stop: 08/08/20 16:59 Azithromycin 500 mg/ Sodium (Chloride) 250 mls @ 250 mls/hr IV Q24H [facility] Stop: 08/06/20 17:59 Last Admin: 08/04/20 17:38 Dose: 250 mls/hr Documented by: Ceftriaxone Sodium 2 gm/ (Sodium Chloride) 100 mls @ 200 mls/hr IV Q24H [facility] Stop: 08/08/20 18:29 Last Admin: 08/04/20 17:43 Dose: 200 mls/hr Documented by: Diltiazem HCl 100 mg/ Sodium (Chloride) 100 mls @ 5 mls/hr IV TITRATE [facility]; Protocol Last Titration: 08/05/20 08:00 Dose: 0 mg/hr, 0 mls/hr Documented by: Metoprolol Tartrate (Lopressor) 50 mg PO BIDMEALS [facility] Last Admin: 08/05/20 08:25 Dose: 50 mg Documented by: Ondansetron HCl (Zofran) 4 mg IV Q4H PRN PRN Reason: Nausea/Vomiting Sodium Chloride (Saline Flush) 10 ml FLUSH ASDIRECTED PRN PRN Reason: Keep Vein Open Discontinued Medications Acetaminophen (Tylenol) 975 mg PO ONETIME ONE Stop: 08/04/20 10:01 Last Admin: 08/04/20 10:52 Dose: 975 mg Documented by: Diltiazem HCl (Cardizem) 10 mg IVPUSH ONETIME ONE Stop: 08/05/20 03:24 Last Admin: 08/05/20 03:34 Dose: 10 mg Documented by: Diltiazem HCl (Cardizem) 10 mg IVPUSH ONETIME ONE Stop: 08/05/20 04:05 Last Admin: 08/05/20 04:11 Dose: 10 mg Documented by: Enoxaparin Sodium (Lovenox) 30 mg SUBCUT Q12H [facility] Last Admin: 08/04/20 16:56 Dose: 30 mg Documented by: Famotidine (Pepcid) 20 mg IVPUSH ONETIME ONE Stop: 08/05/20 09:01 Last Admin: 08/05/20 09:43 Dose: Not Given Documented by: Furosemide (Lasix) 40 mg IVPUSH NOW [facility] Stop: 08/04/20 17:00 Furosemide (Lasix) 20 mg IVPUSH ONETIME ONE Stop: 08/04/20 22:01 Last Admin: 08/04/20 22:43 Dose: 20 mg Documented by: Dextrose/Sodium Chloride (Dextrose 5%-Normal Saline) 1,000 mls @ 150 mls/hr IV ASDIRECTED [facility] Last Admin: 08/04/20 10:51 Dose: 150 mls/hr Documented by: Remdesivir 200 mg/ Sodium (Chloride) 250 mls @ 250 mls/hr IV ONETIME ONE Stop: 08/04/20 14:33 Last Admin: 08/04/20 16:54 Dose: 250 mls/hr Documented by: Sodium Chloride (Normal Saline) Confirm Administered Dose 250 mls @ as directed .ROUTE .STK-MED ONE Stop: 08/04/20 20:59 Last Admin: 08/04/20 21:14 Dose: 50 mls/hr Documented by: Potassium Chloride 10 meq/ (Premix) 100 mls @ 100 mls/hr IV Q1H [facility] Stop: 08/05/20 12:59 Last Admin: 08/05/20 12:51 Dose: 100 mls/hr Documented by: Metoprolol Tartrate (Lopressor) 2.5 mg IVPUSH ONETIME ONE Stop: 08/05/20 07:47 Last Admin: 08/05/20 07:56 Dose: 2.5 mg Documented by: Metoprolol Tartrate (Lopressor) 2.5 mg IVPUSH ONETIME ONE Stop: 08/05/20 08:13 - Exam Quality Assessment: Supplemental Oxygen General: Alert, Oriented HEENT: Pupils Equal, Mucous Membr. Moist/[place] Neck: Supple Lungs: Normal Respiratory Effort, Rales (Bibasilar) Cardiovascular: Irregular Rhythm GI/Abdominal Exam: Normal Bowel Sounds, Soft, Non-Tender, No Distention Extremities: Normal Inspection, Normal Capillary Refill Skin: Warm, Dry, Intact Psy/Mental Status: Alert, Normal Affect, Normal Mood Sepsis Event Note - Evaluation Sepsis Screening Result: Sepsis Risk - Focused Exam Vital Signs: Vital Signs Temp Pulse Pulse Resp BP BP Pulse Ox 08/05/20 16:00 98.3 F 79 20 136/71 92 L 08/05/20 12:00 97.2 F 78 18 127/59 L 90 L 08/05/20 08:25 81 95/68 08/05/20 08:00 22 H 123/74 94 L 08/05/20 07:56 137 H 118/75 - Problem List & Annotations (1) New onset atrial fibrillation SNOMED Code(s): 36426521 Code(s): I48.91 - UNSPECIFIED ATRIAL FIBRILLATION Status: Acute Current Visit: Yes (2) Atrial fibrillation with rapid ventricular response SNOMED Code(s): 597917202846424 Code(s): I48.91 - UNSPECIFIED ATRIAL FIBRILLATION Status: Acute Current Visit: Yes (3) Acute hypoxemic respiratory failure SNOMED Code(s): 908798206 Code(s): J96.01 - ACUTE RESPIRATORY FAILURE WITH HYPOXIA Status: Acute Priority: High Current Visit: Yes (4) Congestive heart failure (CHF) SNOMED Code(s): 34772378 Code(s): I50.9 - HEART FAILURE, UNSPECIFIED Status: Acute Priority: High Current Visit: Yes Qualifiers: Heart failure type: unspecified Heart failure chronicity: unspecified Qualified Code(s): I50.9 - Heart failure, unspecified (5) Hyponatremia SNOMED Code(s): 41001035 Code(s): E87.1 - HYPO-OSMOLALITY AND HYPONATREMIA Status: Acute Priority: High Current Visit: Yes (6) Pneumonia due to 2019 novel coronavirus SNOMED Code(s): 638254131044985496 Code(s): U07.1 - COVID-19; J12.89 - OTHER VIRAL PNEUMONIA Status: Acute Priority: High Current Visit: Yes (7) Essential tremor SNOMED Code(s): 043156634 Code(s): G25.0 - ESSENTIAL TREMOR Status: Chronic Priority: Medium Current Visit: Yes - Problem List Review Problem List Initiated/Reviewed/Updated: Yes - My Orders Last 24 Hours: My Active Orders 08/05/20 03:21 EKG 12 Lead [EK] Stat 08/05/20 03:42 PROCALCITONIN [REF] Routine 08/05/20 04:11 Alum Hydrox/Mag Hydrox/Simeth [Mag-Al Plus] 30 ml PO Q4H PRN 08/05/20 05:00 Diltiazem [Cardizem] 100 mg Sodium Chloride 0.9% [Normal Saline] 100 ml IV TITRATE 08/05/20 06:26 Patient Status [ADT] Routine 08/05/20 08:30 Metoprolol Tartrate [Lopressor] 50 mg PO BIDMEALS 08/05/20 12:44 Calcium Carbonate [Tums] 1,000 mg PO Q2H PRN 08/05/20 15:10 EKG 12 Lead [EK] Routine 08/05/20 15:11 EKG Documentation Completion [RC] ASDIRECTED 08/05/20 16:33 PT Evaluation and Treatment [CONS] Routine - Plan Plan:: 08/04/20 * 85-year-old female with gradual onset weakness, cough, decreased appetite, fever chills and diaphoresis that started about a week ago. Has been exposed to COVID-19 about 2 weeks ago at a . * Presented to the emergency department and was hypoxemic at 86% on room air. * Initial vital signs in the emergency department reveal a temp of 37.3 Celsius, pulse 84, respiratory rate 20, pressure 170/68, pulse ox 91% on 2 L of oxygen per nasal cannula * Labs in the ED revealed WBC 14.19, sodium 126, potassium 4.1, BUN 8, creatinine 0.6, GFR greater than 60, lactic acid 1.4, LDH 221, troponin I 0.019, C-reactive protein 18.7, D-dimer 1.03, ferritin 142, proBNP 2163, she is Covid positive, urinalysis is unremarkable for infection. Sets of blood cultures were also collected in the emergency department. * Portable chest x-ray reveals a mild increase in interstitial lung markings bilaterally. There is a nodule airspace opacity within the right midlung zone. Findings suggest a pneumonic infiltrate. Consider atypical viral etiology. Pleural spaces otherwise unremarkable with no pleural effusion or pneumothorax. Heart size is mildly prominent. 08/05/2020 * New onset atrial fibrillation with RVR overnight. Stabilized with IV metoprolol and oral metoprolol. * Patient did have some chest pain with the chest pain and her troponin increased slightly to 0.06 * Patient's chest pain when I examined was mostly in her abdomen. This did resolve with resolution of her A. fib RVR. * Patient continues to have hyponatremia 129, white count is elevated at 15.1 likely secondary to inflammation, hypokalemia with potassium of 3.2 and worsening of her proBNP at 3894. * Procalcitonin is less than 0.05. This makes it unlikely that her white count is secondary to significant bacterial infection. PLAN: Pneumonia due to 2019 novel coronavirus, Acute hypoxemic respiratory failure * Convalescent plasma 2 units today. I spoke with the patient to provide information about convalescent plasma for herself. I offered her the fax sheet for patients and caregivers for COVID-19 convalescent plasma to read and review. I stated the therapy has been approved by an emergency youth authorization process and has not fully been FDA reviewed or approved. I shared potential risks from the therapy including transmission of blood-borne pathogen such as HIV and hepatitis C, allergic and transfusion related reactions, post transfusion purpura. Additionally theoretical risks including a phenomenon called antibodydependent enhancement of infection such as seen in dengue or attenuation of an immune response that may make patients more susceptible to reinfection. I discussed there are other potential treatment options that are currently not FDA approved to treat COVID-19. Offered opportunity to ask questions and all questions were answered. The patient voiced understanding and agreed to proceed with treatment for herself. * Remdesivir 200 mg IV x1 dose then 100 mg daily x4 more doses. * Dexamethasone 6 mg p.o. daily x10 days * Rocephin 2 g daily x5 days * Zithromax 500 mg IV daily x3 days * Incentive spirometer and flutter valve every hour while awake New onset A. fib with RVR * Rate is doing well with metoprolol. May need to increase the dose of metoprolol and hold her amlodipine secondary to possible hypotension. * Anticoagulate secondary to A. fib with Eliquis HTN (hypertension) * Vital signs every 4 hours * Readjust antihypertensives based on blood pressure and adjustment of metoprolol Hyponatremia * Restart Lasix in the morning 20 mg daily as needed * 1500 mL fluid restriction every 24 hours * Monitor intake and output every 8 hours Congestive heart failure (CHF) * She may need increased Lasix for the next couple days. Will evaluate in the morning. * Follow-up chest x-rays as needed * Echocardiogram pending Eliquis for stroke and DVT prophylaxis Patient is a DNR/DNI PT OT to eval and treat Dietitian consult regarding patient's caloric needs protective services social worker and case management for discharge planning Respiratory therapy to titrate oxygen to keep O2 saturations between 88 and 94% Patient will be here greater than 96 hours due to the standard 5-day treatment course for Covid
[2020-08-05] MEDS: Metoprolol Tartrate 5 MG/5 ML SDV IVPUSH ONE ×2 (17:22→17:45)
[2020-08-05] MEDS: Dexamethasone 4 MG Tab PO SCH (17:26)
[2020-08-05] MEDS: REMDESIVIR 100 MG in Sodium Chloride 0.9% 100 ML IV SCH (17:27)
[2020-08-05] MEDS: cefTRIAXone 2 GM in Sodium Chloride 0.9% 100 ML IV SCH (19:49)
[2020-08-05] MEDS ORDERED: Nitroglycerin 0.4 MG Tab.SL SL PRN (20:39)
[2020-08-05] MEDS: Azithromycin 500 MG in Sodium Chloride 0.9% 250 ML IV SCH (20:45)
[2020-08-05] MEDS: Gabapentin 300 MG Cap PO SCH (21:52)
[2020-08-05] MEDS: Primidone 50 MG Tab PO SCH (21:52)
[2020-08-05] MEDS: Benzonatate 100 MG Cap PO PRN (21:52)
[2020-08-05] MEDS: Losartan 25 MG Tab PO SCH (21:53)
[2020-08-05] MEDS: Fluticasone Propionate Nasal Spray 16 GM Bottle NAS SCH (21:54)
[2020-08-05] MEDS: ALPRAZolam 0.25 MG Tab PO PRN (22:06)
[2020-08-05] MEDS: Albuterol 6.7 GM Inhaler INH PRN (22:18)
[2020-08-06] MEDS: Zinc Sulfate 220 MG Cap PO SCH (08:23)
[2020-08-06] MEDS: Benzonatate 100 MG Cap PO PRN ×3 (08:23→22:27)
[2020-08-06] MEDS: Primidone 50 MG Tab PO SCH ×2 (08:23→21:42)
[2020-08-06] MEDS: Metoprolol Tartrate 50 MG Tab PO SCH (08:24)
[2020-08-06] MEDS: Losartan 25 MG Tab PO SCH ×2 (08:24→21:41)
[2020-08-06] MEDS: Ezetimibe 10 MG Tab PO SCH (08:24)
[2020-08-06] MEDS: Apixaban 5 MG Tab PO SCH ×2 (08:24→21:42)
[2020-08-06] MEDS: Cholecalciferol (Vitamin D3) 25 MCG Tab PO SCH (08:24)
[2020-08-06] MEDS: Aspirin 81 MG Tab.EC PO SCH (08:25)
[2020-08-06] MEDS: Spironolactone 25 MG Tab PO SCH (08:25)
[2020-08-06] MEDS: Fluticasone Propionate Nasal Spray 16 GM Bottle NAS SCH ×2 (08:25→21:43)
[2020-08-06] MEDS: Albuterol 6.7 GM Inhaler INH PRN ×3 (08:27→20:00)
[2020-08-06] MEDS ORDERED: Metoprolol Tartrate 25 MG Tab PO ONE (09:30)
[2020-08-06] MEDS ORDERED: Potassium Chloride 20 MEQ Tab.ER PO ONE (11:00)
[2020-08-06] MEDS: ALPRAZolam 0.25 MG Tab PO PRN ×2 (11:58→21:42)
--- NOTE | 2020-08-06 13:08 | PCM.PN ---
- General Info Date of Service: 08/06/20 Admission Dx/Problem (Free Text): Admission Diagnosis/Problem Admission Diagnosis/Problem Weakness Subjective Update: Patient reports feeling better today than yesterday. Currently on room air. States she has a persistent nonproductive cough. Still having runs of tachycardia. Functional Status: Reports: Pain Controlled, Tolerating Diet, Ambulating (With therapies), Urinating (Adkins catheter), Incentive Spirometry - Review of Systems General: Reports: No Symptoms HEENT: Reports: No Symptoms Pulmonary: Reports: Shortness of Breath, Cough. Denies: Pleuritic Chest Pain, Sputum, Wheezing Cardiovascular: Reports: Dyspnea on Exertion. Denies: Chest Pain, Palpitations, Edema, Lightheadedness Gastrointestinal: Reports: Constipation (Milk of mag ordered for the patient) Genitourinary: Reports: Other (Adkins catheter in place) Musculoskeletal: Reports: No Symptoms Skin: Reports: No Symptoms Neurological: Reports: Pre-Existing Deficit (Essential tremors), Tremors (Essential tremors) Psychiatric: Reports: Other (Patient very tearful today, states she just lost her a couple of months ago and is fearful that she is going to soon.) - Patient Data Vitals - Most Recent: Last Vital Signs Temp 97.4 F 08/06/20 08:00 Pulse 68 08/06/20 09:31 Resp 18 08/06/20 08:00 BP 138/105 H 08/06/20 09:31 Pulse Ox 93 L 08/06/20 08:29 Weight - Most Recent: 134 lb 14.4 oz I&O - Last 24 Hours: Intake & Output 08/05/20 08/06/20 08/06/20 22:59 06:59 14:59 Intake Total 1095 650 Output Total 125 295 160 Balance 970 355 -160 Lab Results Last 24 Hours: Laboratory Results - last 24 hr 08/05/20 08/05/20 08/06/20 Range/Units 03:42 16:08 04:31 WBC 14.78 H (3.98-10.04) K/mm3 RBC 3.99 (3.98-5.22) M/mm3 Hgb 11.9 (11.2-15.7) gm/dl Hct 37.0 (34.1-44.9) % MCV 92.7 (79.4-94.8) fl MCH 29.8 (25.6-32.2) pg MCHC 32.2 (32.2-35.5) g/dl RDW Std Deviation 48.2 H (36.4-46.3) fL Plt Count 290 (182-369) K/mm3 MPV 11.2 (9.4-12.3) fl Neut % (Auto) 39.2 (34.0-71.1) % Lymph % (Auto) 8.7 L (19.3-51.7) % [place] % (Auto) 51.8 H (4.7-12.5) % Eos % (Auto) 0 L (0.7-5.8) Baso % (Auto) 0.1 (0.1-1.2) % Neut # (Auto) 5.80 (1.56-6.13) K/mm3 Lymph # (Auto) 1.29 (1.18-3.74) K/mm3 [place] # (Auto) 7.65 H (0.24-0.36) K/mm3 Eos # (Auto) 0.00 L (0.04-0.36) K/mm3 Baso # (Auto) 0.01 (0.01-0.08) K/mm3 Manual Slide Review Abnormal smear D-Dimer, Quantitative (0.19-0.50) mg/L Sodium (136-145) mEq/L Potassium (3.5-5.1) mEq/L Chloride (98-107) mEq/L Carbon Dioxide (21-32) mEq/L Anion Gap (5-15) BUN (7-18) mg/dL Creatinine (0.55-1.02) mg/dL Est Cr Clr Drug Dosing mL/min Estimated GFR (MDRD) (>60) mL/min BUN/Creatinine Ratio (14-18) Glucose (83-115) mg/dL Calcium (8.5-10.1) mg/dL Magnesium (1.8-2.4) mg/dl Total Bilirubin (0.2-1.0) mg/dL AST (15-37) U/L ALT (14-59) U/L Alkaline Phosphatase (46-116) U/L Troponin I 0.068 H* (0.00-0.056) ng/mL C-Reactive Protein (<1.0) mg/dL Total Protein (6.4-8.2) g/dl Albumin (3.4-5.0) g/dl Globulin gm/dL Albumin/Globulin Ratio (1-2) Procalcitonin <0.05 (<0.10) ng/mL 08/06/20 08/06/20 08/06/20 Range/Units 04:31 04:31 11:17 WBC (3.98-10.04) K/mm3 RBC (3.98-5.22) M/mm3 Hgb (11.2-15.7) gm/dl Hct (34.1-44.9) % MCV (79.4-94.8) fl MCH (25.6-32.2) pg MCHC (32.2-35.5) g/dl RDW Std Deviation (36.4-46.3) fL Plt Count (182-369) K/mm3 MPV (9.4-12.3) fl Neut % (Auto) (34.0-71.1) % Lymph % (Auto) (19.3-51.7) % [place] % (Auto) (4.7-12.5) % Eos % (Auto) (0.7-5.8) Baso % (Auto) (0.1-1.2) % Neut # (Auto) (1.56-6.13) K/mm3 Lymph # (Auto) (1.18-3.74) K/mm3 [place] # (Auto) (0.24-0.36) K/mm3 Eos # (Auto) (0.04-0.36) K/mm3 Baso # (Auto) (0.01-0.08) K/mm3 Manual Slide Review D-Dimer, Quantitative 0.66 H (0.19-0.50) mg/L Sodium 130 L (136-145) mEq/L Potassium 3.5 (3.5-5.1) mEq/L Chloride 93 L (98-107) mEq/L Carbon Dioxide 31 (21-32) mEq/L Anion Gap 9.5 (5-15) BUN 12 (7-18) mg/dL Creatinine 0.5 L (0.55-1.02) mg/dL Est Cr Clr Drug Dosing 58.01 mL/min Estimated GFR (MDRD) > 60 (>60) mL/min BUN/Creatinine Ratio 24.0 H (14-18) Glucose 136 H (83-115) mg/dL Calcium 8.0 L (8.5-10.1) mg/dL Magnesium 2.1 (1.8-2.4) mg/dl Total Bilirubin 0.4 (0.2-1.0) mg/dL AST 22 (15-37) U/L ALT 21 (14-59) U/L Alkaline Phosphatase 50 (46-116) U/L Troponin I 0.026 (0.00-0.056) ng/mL C-Reactive Protein 28.4 H* (<1.0) mg/dL Total Protein 6.7 (6.4-8.2) g/dl Albumin 2.4 L (3.4-5.0) g/dl Globulin 4.3 gm/dL Albumin/Globulin Ratio 0.6 L (1-2) Procalcitonin (<0.10) ng/mL [place] Results Last 24 Hours: Microbiology 08/04/20 11:23 Aerobic Blood Culture - Preliminary Blood - Venous - Lab Draw NO GROWTH AFTER 2 DAYS Anaerobic Blood Culture - Preliminary NO GROWTH AFTER 2 DAYS 08/04/20 11:02 Aerobic Blood Culture - Preliminary Blood - Venous NO GROWTH AFTER 2 DAYS Anaerobic Blood Culture - Preliminary NO GROWTH AFTER 2 DAYS Med Orders - Current: Current Medications Acetaminophen (Tylenol) 650 mg PO Q4H PRN PRN Reason: Pain (Mild 1-3)/fever Al Hydroxide/Mg Hydroxide (Mag-Al Plus) 30 ml PO Q4H PRN PRN Reason: Heartburn Stop: 08/07/20 04:13 Last Admin: 08/05/20 04:23 Dose: 30 ml Documented by: Albuterol (Proventil Neb Soln) 2.5 mg NEB Q2H PRN PRN Reason: Shortness Of Breath/wheezing Albuterol (Proventil Hfa) 2 gm INH Q4H PRN PRN Reason: SOB/Cough Last Admin: 08/06/20 08:27 Dose: 2 puff Documented by: Alprazolam (Xanax) 0.25 mg PO Q12H PRN PRN Reason: Anxiety Last Admin: 08/06/20 11:58 Dose: 0.25 mg Documented by: Apixaban (Eliquis) 5 mg PO BID [facility] Last Admin: 08/06/20 08:24 Dose: 5 mg Documented by: Aspirin (Halfprin) 81 mg PO DAILY [facility] Last Admin: 08/06/20 08:25 Dose: 81 mg Documented by: Benzonatate (Tessalon Perles) 200 mg PO QID PRN PRN Reason: Cough Last Admin: 08/06/20 08:23 Dose: 200 mg Documented by: Calcium Carbonate/Glycine (Tums) 1,000 mg PO Q2H PRN PRN Reason: Indigestion Last Admin: 08/05/20 14:08 Dose: 1,000 mg Documented by: Cholecalciferol (Vitamin D3) 25 mcg PO DAILY [facility] Last Admin: 08/06/20 08:24 Dose: 25 mcg Documented by: Dexamethasone (Dexamethasone) 6 mg PO Q24H [facility] Stop: 08/13/20 16:01 Last Admin: 08/05/20 17:26 Dose: 6 mg Documented by: Docusate Sodium (Colace) 100 mg PO BID PRN PRN Reason: Constipation Ezetimibe (Zetia) 10 mg PO DAILY [facility] Last Admin: 08/06/20 08:24 Dose: 10 mg Documented by: Fluticasone Propionate (Flonase) 0 gm LINDA BID [facility] Last Admin: 08/06/20 08:25 Dose: 1 spray Documented by: Gabapentin (Neurontin) 300 mg PO BEDTIME [facility] Last Admin: 08/05/20 21:52 Dose: 300 mg Documented by: Remdesivir 100 mg/ Sodium (Chloride) 100 mls @ 100 mls/hr IV Q24H [facility] Stop: 08/08/20 16:59 Last Admin: 08/05/20 17:27 Dose: 100 mls/hr Documented by: Azithromycin 500 mg/ Sodium (Chloride) 250 mls @ 250 mls/hr IV Q24H [facility] Stop: 08/06/20 17:59 Last Admin: 08/05/20 20:45 Dose: 250 mls/hr Documented by: Ceftriaxone Sodium 2 gm/ (Sodium Chloride) 100 mls @ 200 mls/hr IV Q24H [facility] Stop: 08/08/20 18:29 Last Admin: 08/05/20 19:49 Dose: 200 mls/hr Documented by: Diltiazem HCl 100 mg/ Sodium (Chloride) 100 mls @ 5 mls/hr IV TITRATE [facility]; Protocol Last Titration: 08/05/20 08:00 Dose: 0 mg/hr, 0 mls/hr Documented by: Losartan Potassium (Cozaar) 50 mg PO BID [facility] Last Admin: 08/06/20 08:24 Dose: 50 mg Documented by: Metoprolol Tartrate (Lopressor) 75 mg PO BIDMEALS [facility] Nitroglycerin (Nitrostat) 0.4 mg SL ASDIRECTED PRN PRN Reason: Chest Pain Lovastatin 80 Mg (Ptom) 80 mg PO BEDTIME [facility] Ondansetron HCl (Zofran) 4 mg IV Q4H PRN PRN Reason: Nausea/Vomiting Primidone (Mysoline) 300 mg PO BID [facility] Last Admin: 08/06/20 08:23 Dose: 300 mg Documented by: Sodium Chloride (Saline Flush) 10 ml FLUSH ASDIRECTED PRN PRN Reason: Keep Vein Open Spironolactone (Aldactone) 25 mg PO DAILY [facility] Last Admin: 08/06/20 08:25 Dose: 25 mg Documented by: Zinc Sulfate (Zincate) 220 mg PO DAILY [facility] Last Admin: 08/06/20 08:23 Dose: 220 mg Documented by: Discontinued Medications Acetaminophen (Tylenol) 975 mg PO ONETIME ONE Stop: 08/04/20 10:01 Last Admin: 08/04/20 10:52 Dose: 975 mg Documented by: Diltiazem HCl (Cardizem) 10 mg IVPUSH ONETIME ONE Stop: 08/05/20 03:24 Last Admin: 08/05/20 03:34 Dose: 10 mg Documented by: Diltiazem HCl (Cardizem) 10 mg IVPUSH ONETIME ONE Stop: 08/05/20 04:05 Last Admin: 08/05/20 04:11 Dose: 10 mg Documented by: Enoxaparin Sodium (Lovenox) 30 mg SUBCUT Q12H [facility] Last Admin: 08/04/20 16:56 Dose: 30 mg Documented by: Enoxaparin Sodium (Lovenox) 30 mg SUBCUT Q12H [facility] Last Admin: 08/05/20 17:33 Dose: 30 mg Documented by: Famotidine (Pepcid) 20 mg IVPUSH ONETIME ONE Stop: 08/05/20 09:01 Last Admin: 08/05/20 09:43 Dose: Not Given Documented by: Furosemide (Lasix) 40 mg IVPUSH NOW [facility] Stop: 08/04/20 17:00 Furosemide (Lasix) 20 mg IVPUSH ONETIME ONE Stop: 08/04/20 22:01 Last Admin: 08/04/20 22:43 Dose: 20 mg Documented by: Dextrose/Sodium Chloride (Dextrose 5%-Normal Saline) 1,000 mls @ 150 mls/hr IV ASDIRECTED [facility] Last Admin: 08/04/20 10:51 Dose: 150 mls/hr Documented by: Remdesivir 200 mg/ Sodium (Chloride) 250 mls @ 250 mls/hr IV ONETIME ONE Stop: 08/04/20 14:33 Last Admin: 08/04/20 16:54 Dose: 250 mls/hr Documented by: Sodium Chloride (Normal Saline) Confirm Administered Dose 250 mls @ as directed .ROUTE .STK-MED ONE Stop: 08/04/20 20:59 Last Admin: 08/04/20 21:14 Dose: 50 mls/hr Documented by: Potassium Chloride 10 meq/ (Premix) 100 mls @ 100 mls/hr IV Q1H [facility] Stop: 08/05/20 12:59 Last Admin: 08/05/20 12:51 Dose: 100 mls/hr Documented by: Metoprolol Tartrate (Lopressor) 2.5 mg IVPUSH ONETIME ONE Stop: 08/05/20 07:47 Last Admin: 08/05/20 07:56 Dose: 2.5 mg Documented by: Metoprolol Tartrate (Lopressor) 50 mg PO BIDMEALS [facility] Last Admin: 08/06/20 08:24 Dose: 50 mg Documented by: Metoprolol Tartrate (Lopressor) 2.5 mg IVPUSH ONETIME ONE Stop: 08/05/20 08:13 Last Admin: 08/05/20 17:45 Dose: 2.5 mg Documented by: Metoprolol Tartrate (Lopressor) 25 mg PO ONETIME ONE Stop: 08/06/20 09:31 Last Admin: 08/06/20 09:31 Dose: 25 mg Documented by: Potassium Chloride (Klor-Con M20) 40 meq PO ONETIME ONE Stop: 08/06/20 11:01 Last Admin: 08/06/20 11:58 Dose: 40 meq Documented by: - Exam Quality Assessment: DVT Prophylaxis (Eliquis). No: Supplemental Oxygen General: Alert, Oriented, Cooperative, No Acute Distress HEENT: Pupils Equal, Pupils Reactive, Mucous Membr. Moist/[place] Neck: Supple, Trachea Midline. No: Lymphadenopathy Cardiovascular: Regular Rate, Irregular Rhythm, Murmurs (Grade 2 systolic murmur) GI/Abdominal Exam: Normal Bowel Sounds, Soft, Non-Tender, No Distention (Female) Exam: Deferred Back Exam: Normal Inspection, Full Range of Motion Extremities: Normal Inspection, Normal Range of Motion, Non-Tender, No Pedal Edema, Normal Capillary Refill Peripheral Pulses: 2+: Radial (L), Radial (R), Dorsalis Pedis (L), Dorsalis Pedis (R) Skin: Warm, Dry, Intact Neurological: No New Focal Deficit Psy/Mental Status: Alert, Normal Affect, Normal Mood, Other (Patient tearful on rounds) Sepsis Event Note - Evaluation Sepsis Screening Result: Sepsis Risk - Focused Exam Vital Signs: Vital Signs Temp Pulse Pulse Resp BP BP Pulse Ox 08/06/20 09:31 68 138/105 H 08/06/20 08:29 93 L 08/06/20 08:24 79 143/69 H 08/06/20 08:00 97.4 F 79 18 143/69 H 98 08/06/20 06:01 08/06/20 04:00 96.9 F 80 23 H 126/82 97 Pulse Ox 08/06/20 09:31 08/06/20 08:29 08/06/20 08:24 08/06/20 08:00 08/06/20 06:01 95 08/06/20 04:00 - Problem List & Annotations (1) Pneumonia due to 2019 novel coronavirus SNOMED Code(s): 121359503695949100 Code(s): U07.1 - COVID-19; J12.89 - OTHER VIRAL PNEUMONIA Status: Acute Priority: High Current Visit: Yes (2) Acute hypoxemic respiratory failure SNOMED Code(s): 198650872 Code(s): J96.01 - ACUTE RESPIRATORY FAILURE WITH HYPOXIA Status: Acute Priority: High Current Visit: Yes (3) HTN (hypertension) SNOMED Code(s): 57615066 Code(s): I10 - ESSENTIAL (PRIMARY) HYPERTENSION Status: Chronic Priority: Low Current Visit: No Qualifiers: Hypertension type: essential hypertension Qualified Code(s): I10 - Essential (primary) hypertension (4) Hyponatremia SNOMED Code(s): 05921780 Code(s): E87.1 - HYPO-OSMOLALITY AND HYPONATREMIA Status: Acute Priority: High Current Visit: Yes (5) Congestive heart failure (CHF) SNOMED Code(s): 54273741 Code(s): I50.9 - HEART FAILURE, UNSPECIFIED Status: Acute Priority: High Current Visit: Yes Qualifiers: Heart failure type: unspecified Heart failure chronicity: unspecified Qualified Code(s): I50.9 - Heart failure, unspecified (6) Essential tremor SNOMED Code(s): 787180279 Code(s): G25.0 - ESSENTIAL TREMOR Status: Chronic Priority: Medium Current Visit: Yes - Problem List Review Problem List Initiated/Reviewed/Updated: Yes - My Orders Last 24 Hours: My Active Orders 08/05/20 16:00 Remdesivir 100 mg Sodium Chloride 0.9% [Normal Saline] 100 ml IV Q24H 08/06/20 17:00 Metoprolol Tartrate [Lopressor] 75 mg PO BIDMEALS 08/07/20 05:11 CBC WITH AUTO DIFF [HEME] DAILY COMPREHENSIVE METABOLIC PN,CMP [CHEM] DAILY MAGNESIUM [CHEM] DAILY 08/08/20 05:11 C-REACTIVE PROTEIN [CHEM] Q48H CBC WITH AUTO DIFF [HEME] DAILY COMPREHENSIVE METABOLIC PN,CMP [CHEM] DAILY D-DIMER QUANTITATIVE [COAG] Q48H MAGNESIUM [CHEM] DAILY 08/09/20 05:11 CBC WITH AUTO DIFF [HEME] DAILY COMPREHENSIVE METABOLIC PN,CMP [CHEM] DAILY MAGNESIUM [CHEM] DAILY 08/10/20 05:11 C-REACTIVE PROTEIN [CHEM] Q48H D-DIMER QUANTITATIVE [COAG] Q48H 08/12/20 05:11 C-REACTIVE PROTEIN [CHEM] Q48H D-DIMER QUANTITATIVE [COAG] Q48H 08/14/20 05:11 C-REACTIVE PROTEIN [CHEM] Q48H D-DIMER QUANTITATIVE [COAG] Q48H - Assessment Assessment:: 08/06/2020 * Patient's heart rate is still not controlled on current dose of metoprolol. Rate at times in the 1teens to 120's * Troponin down to 0.026. No further complaints of chest pain noted. * Labs reveal: WBC 14.78 which is decreased from 15.10, D-dimer 0.66, sodium up to 130, potassium 3.5, BUN 12, creatinine 0.5, GFR greater than 60, C-reactive protein 28.4. * Day 3 of remdesivir and dexamethasone. * Day 3 of Rocephin and Zithromax. * Patient is on room air. - Plan Plan:: 08/04/20 * 85-year-old female with gradual onset weakness, cough, decreased appetite, fever chills and diaphoresis that started about a week ago. Has been exposed to COVID-19 about 2 weeks ago at a . * Presented to the emergency department and was hypoxemic at 86% on room air. * Initial vital signs in the emergency department reveal a temp of 37.3 Celsius, pulse 84, respiratory rate 20, pressure 170/68, pulse ox 91% on 2 L of oxygen per nasal cannula * Labs in the ED revealed WBC 14.19, sodium 126, potassium 4.1, BUN 8, creatinine 0.6, GFR greater than 60, lactic acid 1.4, LDH 221, troponin I 0.019, C-reactive protein 18.7, D-dimer 1.03, ferritin 142, proBNP 2163, she is Covid positive, urinalysis is unremarkable for infection. Sets of blood cultures were also collected in the emergency department. * Portable chest x-ray reveals a mild increase in interstitial lung markings bilaterally. There is a nodule airspace opacity within the right midlung zone. Findings suggest a pneumonic infiltrate. Consider atypical viral etiology. Pleural spaces otherwise unremarkable with no pleural effusion or pneumothorax. Heart size is mildly prominent. 08/05/2020 * New onset atrial fibrillation with RVR overnight. Stabilized with IV metoprolol and oral metoprolol. * Patient did have some chest pain with the chest pain and her troponin increased slightly to 0.06 * Patient's chest pain when I examined was mostly in her abdomen. This did resolve with resolution of her A. fib RVR. * Patient continues to have hyponatremia 129, white count is elevated at 15.1 likely secondary to inflammation, hypokalemia with potassium of 3.2 and worsening of her proBNP at 3894. * Procalcitonin is less than 0.05. This makes it unlikely that her white count is secondary to significant bacterial infection. PLAN: Pneumonia due to 2019 novel coronavirus, Acute hypoxemic respiratory failure * Convalescent plasma 2 units today. I spoke with the patient to provide information about convalescent plasma for herself. I offered her the fax sheet for patients and caregivers for COVID-19 convalescent plasma to read and review. I stated the therapy has been approved by an emergency youth authorization process and has not fully been FDA reviewed or approved. I shared potential risks from the therapy including transmission of blood-borne pathogen such as HIV and hepatitis C, allergic and transfusion related r eactions, post transfusion purpura. Additionally theoretical risks including a phenomenon called antibodydependent enhancement of infection such as seen in dengue or attenuation of an immune response that may make patients more susceptible to reinfection. I discussed there are other potential treatment options that are currently not FDA approved to treat COVID-19. Offered opportunity to ask questions and all questions were answered. The patient voiced understanding and agreed to proceed with treatment for herself. * Remdesivir 200 mg IV x1 dose then 100 mg daily x4 more doses. * Dexamethasone 6 mg p.o. daily x10 days * Rocephin 2 g daily x5 days * Zithromax 500 mg IV daily x3 days * Incentive spirometer and flutter valve every hour while awake 08/06/20 New onset A. fib with RVR * Rate is still not controlled on current dose of metoprolol. Increase metoprolol to 75 mg by mouth twice daily. * Anticoagulate secondary to A. fib with Eliquis HTN (hypertension) * Vital signs every 4 hours * Readjust antihypertensives based on blood pressure and adjustment of metoprolol Hyponatremia * Restart Lasix in the morning 20 mg daily as needed * 1500 mL fluid restriction every 24 hours * Monitor intake and output every 8 hours Congestive heart failure (CHF) * Furosemide 40mg IV x 1 dose today. * Follow-up chest x-rays as needed * Echocardiogram pending Eliquis for stroke and DVT prophylaxis Patient is a DNR/DNI PT OT to eval and treat Dietitian consult regarding patient's caloric needs student services rep and case management for discharge planning Respiratory therapy to titrate oxygen to keep O2 saturations between 88 and 94% [facility] and continuous pulse oximetry. Discontinue Adkins catheter, but maintain strict VIJAYA and daily weight Patient will be here greater than 96 hours due to the standard 5-day treatment course for Covid
[2020-08-06] MEDS ORDERED: Furosemide 40 MG/4 ML VIAL IVPUSH ONE (14:15)
[2020-08-06] MEDS: REMDESIVIR 100 MG in Sodium Chloride 0.9% 100 ML IV SCH (15:05)
[2020-08-06] MEDS: Dexamethasone 4 MG Tab PO SCH (15:05)
[2020-08-06] MEDS: Azithromycin 500 MG in Sodium Chloride 0.9% 250 ML IV SCH (16:58)
[2020-08-06] MEDS: Metoprolol Tartrate 25 MG Tab PO SCH (17:15)
[2020-08-06] MEDS: cefTRIAXone 2 GM in Sodium Chloride 0.9% 100 ML IV SCH (17:18)
[2020-08-06] MEDS: Gabapentin 300 MG Cap PO SCH (21:42)
[2020-08-06] MEDS: LOVASTATIN 80 MG PO SCH (21:44)
[2020-08-07] MEDS: Benzonatate 100 MG Cap PO PRN ×2 (09:05→13:52)
[2020-08-07] MEDS: Primidone 50 MG Tab PO SCH ×2 (09:05→20:34)
[2020-08-07] MEDS: Cholecalciferol (Vitamin D3) 25 MCG Tab PO SCH (09:05)
[2020-08-07] MEDS: Losartan 25 MG Tab PO SCH ×2 (09:05→20:33)
[2020-08-07] MEDS: Metoprolol Tartrate 25 MG Tab PO SCH ×2 (09:06→16:48)
[2020-08-07] MEDS: Aspirin 81 MG Tab.EC PO SCH (09:06)
[2020-08-07] MEDS: Spironolactone 25 MG Tab PO SCH (09:06)
[2020-08-07] MEDS: Apixaban 5 MG Tab PO SCH ×2 (09:06→20:34)
[2020-08-07] MEDS: Zinc Sulfate 220 MG Cap PO SCH (09:06)
[2020-08-07] MEDS: Ezetimibe 10 MG Tab PO SCH (09:06)
[2020-08-07] MEDS: ALPRAZolam 0.25 MG Tab PO PRN ×2 (09:07→22:18)
[2020-08-07] MEDS: Fluticasone Propionate Nasal Spray 16 GM Bottle NAS SCH ×2 (11:59→20:35)
[2020-08-07] MEDS: Acetaminophen 325 MG Tab PO PRN (11:59)
--- NOTE | 2020-08-07 15:24 | PCM.PN ---
- General Info Date of Service: 08/07/20 Admission Dx/Problem (Free Text): Admission Diagnosis/Problem Admission Diagnosis/Problem Weakness Subjective Update: Patient reports feeling well today. Complains of persistent nonproductive cough. Requesting Lidoderm patches. Heart rate seems to be well controlled Functional Status: Reports: Pain Controlled, Tolerating Diet, Ambulating, Urinating, Incentive Spirometry - Review of Systems General: Reports: No Symptoms HEENT: Reports: No Symptoms Pulmonary: Reports: Cough. Denies: Sputum, Wheezing Cardiovascular: Reports: No Symptoms Gastrointestinal: Reports: No Symptoms Genitourinary: Reports: No Symptoms Musculoskeletal: Reports: No Symptoms Skin: Reports: No Symptoms Neurological: Reports: Pre-Existing Deficit, Tremors (Essential tremors) Psychiatric: Reports: No Symptoms - Patient Data Vitals - Most Recent: Last Vital Signs Temp 97.8 F 08/07/20 09:04 Pulse 68 08/07/20 09:06 Resp 20 08/07/20 09:04 BP 133/63 08/07/20 11:41 Pulse Ox 95 08/07/20 11:41 Weight - Most Recent: 136 lb I&O - Last 24 Hours: Intake & Output 08/07/20 08/07/20 08/07/20 06:59 14:59 22:59 Intake Total 200 Output Total 100 Balance 100 Lab Results Last 24 Hours: Laboratory Results - last 24 hr 08/07/20 08/07/20 Range/Units 05:09 05:09 WBC 9.97 (3.98-10.04) K/mm3 RBC 3.83 L (3.98-5.22) M/mm3 Hgb 11.4 (11.2-15.7) gm/dl Hct 35.9 (34.1-44.9) % MCV 93.7 (79.4-94.8) fl MCH 29.8 (25.6-32.2) pg MCHC 31.8 L (32.2-35.5) g/dl RDW Std Deviation 48.2 H (36.4-46.3) fL Plt Count 325 (182-369) K/mm3 MPV 11.0 (9.4-12.3) fl Neut % (Auto) 52.8 (34.0-71.1) % Lymph % (Auto) 13.2 L (19.3-51.7) % [place] % (Auto) 33.5 H (4.7-12.5) % Eos % (Auto) 0.1 L (0.7-5.8) Baso % (Auto) 0.1 (0.1-1.2) % Neut # (Auto) 5.26 (1.56-6.13) K/mm3 Lymph # (Auto) 1.32 (1.18-3.74) K/mm3 [place] # (Auto) 3.34 H (0.24-0.36) K/mm3 Eos # (Auto) 0.01 L (0.04-0.36) K/mm3 Baso # (Auto) 0.01 (0.01-0.08) K/mm3 Manual Slide Review Abnormal smear Sodium 129 L (136-145) mEq/L Potassium 4.0 (3.5-5.1) mEq/L Chloride 92 L (98-107) mEq/L Carbon Dioxide 32 (21-32) mEq/L Anion Gap 9.0 (5-15) BUN 25 H (7-18) mg/dL Creatinine 0.6 (0.55-1.02) mg/dL Est Cr Clr Drug Dosing 48.34 mL/min Estimated GFR (MDRD) > 60 (>60) mL/min BUN/Creatinine Ratio 41.7 H (14-18) Glucose 158 H (83-115) mg/dL Calcium 8.2 L (8.5-10.1) mg/dL Magnesium 2.1 (1.8-2.4) mg/dl Total Bilirubin 0.3 (0.2-1.0) mg/dL AST 20 (15-37) U/L ALT 18 (14-59) U/L Alkaline Phosphatase 48 (46-116) U/L Total Protein 6.5 (6.4-8.2) g/dl Albumin 2.3 L (3.4-5.0) g/dl Globulin 4.2 gm/dL Albumin/Globulin Ratio 0.6 L (1-2) [place] Results Last 24 Hours: Microbiology 08/04/20 11:23 Aerobic Blood Culture - Preliminary Blood - Venous - Lab Draw NO GROWTH AFTER 3 DAYS Anaerobic Blood Culture - Preliminary NO GROWTH AFTER 3 DAYS 08/04/20 11:02 Aerobic Blood Culture - Preliminary Blood - Venous NO GROWTH AFTER 3 DAYS Anaerobic Blood Culture - Preliminary NO GROWTH AFTER 3 DAYS Med Orders - Current: Current Medications Acetaminophen (Tylenol) 650 mg PO Q4H PRN PRN Reason: Pain (Mild 1-3)/fever Last Admin: 08/07/20 11:59 Dose: 650 mg Documented by: Albuterol (Proventil Neb Soln) 2.5 mg NEB Q2H PRN PRN Reason: Shortness Of Breath/wheezing Albuterol (Proventil Hfa) 2 gm INH Q4H PRN PRN Reason: SOB/Cough Last Admin: 08/06/20 20:00 Dose: 2 puff Documented by: Alprazolam (Xanax) 0.25 mg PO Q12H PRN PRN Reason: Anxiety Last Admin: 08/07/20 09:07 Dose: 0.25 mg Documented by: Apixaban (Eliquis) 5 mg PO BID [facility] Last Admin: 08/07/20 09:06 Dose: 5 mg Documented by: Aspirin (Halfprin) 81 mg PO DAILY [facility] Last Admin: 08/07/20 09:06 Dose: 81 mg Documented by: Benzonatate (Tessalon Perles) 200 mg PO QID PRN PRN Reason: Cough Last Admin: 08/07/20 13:52 Dose: 200 mg Documented by: Calcium Carbonate/Glycine (Tums) 1,000 mg PO Q2H PRN PRN Reason: Indigestion Last Admin: 08/05/20 14:08 Dose: 1,000 mg Documented by: Cholecalciferol (Vitamin D3) 25 mcg PO DAILY [facility] Last Admin: 08/07/20 09:05 Dose: 25 mcg Documented by: Dexamethasone (Dexamethasone) 6 mg PO Q24H [facility] Stop: 08/13/20 16:01 Last Admin: 08/06/20 15:05 Dose: 6 mg Documented by: Docusate Sodium (Colace) 100 mg PO BID PRN PRN Reason: Constipation Ezetimibe (Zetia) 10 mg PO DAILY [facility] Last Admin: 08/07/20 09:06 Dose: 10 mg Documented by: Fluticasone Propionate (Flonase) 0 gm LINDA BID [facility] Last Admin: 08/07/20 11:59 Dose: 1 spray Documented by: Gabapentin (Neurontin) 300 mg PO BEDTIME [facility] Last Admin: 08/06/20 21:42 Dose: 300 mg Documented by: Remdesivir 100 mg/ Sodium (Chloride) 100 mls @ 100 mls/hr IV Q24H [facility] Stop: 08/08/20 16:59 Last Admin: 08/06/20 15:05 Dose: 100 mls/hr Documented by: Ceftriaxone Sodium 2 gm/ (Sodium Chloride) 100 mls @ 200 mls/hr IV Q24H [facility] Stop: 08/08/20 18:29 Last Admin: 08/06/20 17:18 Dose: 200 mls/hr Documented by: Diltiazem HCl 100 mg/ Sodium (Chloride) 100 mls @ 5 mls/hr IV TITRATE [facility]; Protocol Last Titration: 08/05/20 08:00 Dose: 0 mg/hr, 0 mls/hr Documented by: Lidocaine (Aspercreme 4%) 1 each TOP DAILY [facility] Losartan Potassium (Cozaar) 50 mg PO BID [facility] Last Admin: 08/07/20 09:05 Dose: 50 mg Documented by: Magnesium Hydroxide (Milk Of Magnesia) 30 ml PO Q4H PRN PRN Reason: Constipation [facility] Last Admin: 08/07/20 09:06 Dose: 75 mg Documented by: Miscellaneous Information (Remove Patch) 1 ea TRDERM BEDTIME [facility] Nitroglycerin (Nitrostat) 0.4 mg SL ASDIRECTED PRN PRN Reason: Chest Pain Lovastatin 80 Mg (Ptom) 80 mg PO BEDTIME [facility] Last Admin: 08/06/20 21:44 Dose: 80 mg Documented by: Ondansetron HCl (Zofran) 4 mg IV Q4H PRN PRN Reason: Nausea/Vomiting Primidone (Mysoline) 300 mg PO BID [facility] Last Admin: 08/07/20 09:05 Dose: 300 mg Documented by: Sodium Chloride (Saline Flush) 10 ml FLUSH ASDIRECTED PRN PRN Reason: Keep Vein Open Spironolactone (Aldactone) 25 mg PO DAILY [facility] Last Admin: 08/07/20 09:06 Dose: 25 mg Documented by: Zinc Sulfate (Zincate) 220 mg PO DAILY [facility] Last Admin: 08/07/20 09:06 Dose: 220 mg Documented by: Discontinued Medications Acetaminophen (Tylenol) 975 mg PO ONETIME ONE Stop: 08/04/20 10:01 Last Admin: 08/04/20 10:52 Dose: 975 mg Documented by: Al Hydroxide/Mg Hydroxide (Mag-Al Plus) 30 ml PO Q4H PRN PRN Reason: Heartburn Stop: 08/07/20 04:13 Last Admin: 08/05/20 04:23 Dose: 30 ml Documented by: Diltiazem HCl (Cardizem) 10 mg IVPUSH ONETIME ONE Stop: 08/05/20 03:24 Last Admin: 08/05/20 03:34 Dose: 10 mg Documented by: Diltiazem HCl (Cardizem) 10 mg IVPUSH ONETIME ONE Stop: 08/05/20 04:05 Last Admin: 08/05/20 04:11 Dose: 10 mg Documented by: Enoxaparin Sodium (Lovenox) 30 mg SUBCUT Q12H [facility] Last Admin: 08/04/20 16:56 Dose: 30 mg Documented by: Enoxaparin Sodium (Lovenox) 30 mg SUBCUT Q12H [facility] Last Admin: 08/05/20 17:33 Dose: 30 mg Documented by: Famotidine (Pepcid) 20 mg IVPUSH ONETIME ONE Stop: 08/05/20 09:01 Last Admin: 08/05/20 09:43 Dose: Not Given Documented by: Furosemide (Lasix) 40 mg IVPUSH NOW [facility] Stop: 08/04/20 17:00 Furosemide (Lasix) 20 mg IVPUSH ONETIME ONE Stop: 08/04/20 22:01 Last Admin: 08/04/20 22:43 Dose: 20 mg Documented by: Furosemide (Lasix) 40 mg IVPUSH NOW ONE Stop: 08/06/20 14:16 Last Admin: 08/06/20 14:29 Dose: 40 mg Documented by: Dextrose/Sodium Chloride (Dextrose 5%-Normal Saline) 1,000 mls @ 150 mls/hr IV ASDIRECTED [facility] Last Admin: 08/04/20 10:51 Dose: 150 mls/hr Documented by: Remdesivir 200 mg/ Sodium (Chloride) 250 mls @ 250 mls/hr IV ONETIME ONE Stop: 08/04/20 14:33 Last Admin: 08/04/20 16:54 Dose: 250 mls/hr Documented by: Azithromycin 500 mg/ Sodium (Chloride) 250 mls @ 250 mls/hr IV Q24H [facility] Stop: 08/06/20 17:59 Last Admin: 08/06/20 16:58 Dose: 250 mls/hr Documented by: Sodium Chloride (Normal Saline) Confirm Administered Dose 250 mls @ as directed .ROUTE .STK-MED ONE Stop: 08/04/20 20:59 Last Admin: 08/04/20 21:14 Dose: 50 mls/hr Documented by: Potassium Chloride 10 meq/ (Premix) 100 mls @ 100 mls/hr IV Q1H [facility] Stop: 08/05/20 12:59 Last Admin: 08/05/20 12:51 Dose: 100 mls/hr Documented by: Metoprolol Tartrate (Lopressor) 2.5 mg IVPUSH ONETIME ONE Stop: 08/05/20 07:47 Last Admin: 08/05/20 07:56 Dose: 2.5 mg Documented by: Metoprolol Tartrate (Lopressor) 50 mg PO BIDMEALS [facility] Last Admin: 08/06/20 08:24 Dose: 50 mg Documented by: Metoprolol Tartrate (Lopressor) 2.5 mg IVPUSH ONETIME ONE Stop: 08/05/20 08:13 Last Admin: 08/05/20 17:45 Dose: 2.5 mg Documented by: Metoprolol Tartrate (Lopressor) 25 mg PO ONETIME ONE Stop: 08/06/20 09:31 Last Admin: 08/06/20 09:31 Dose: 25 mg Documented by: Potassium Chloride (Klor-Con M20) 40 meq PO ONETIME ONE Stop: 08/06/20 11:01 Last Admin: 08/06/20 11:58 Dose: 40 meq Documented by: - Exam Quality Assessment: DVT Prophylaxis (Eliquis). No: Supplemental Oxygen General: Alert, Oriented, Cooperative, No Acute Distress HEENT: Pupils Equal, Pupils Reactive, Mucous Membr. Moist/[place] Neck: Supple, Trachea Midline. No: Lymphadenopathy Lungs: Normal Respiratory Effort, Decreased Breath Sounds, Crackles (Bilateral bases) Cardiovascular: Regular Rate, Irregular Rhythm GI/Abdominal Exam: Normal Bowel Sounds, Soft, Non-Tender, No Distention (Female) Exam: Deferred Back Exam: Normal Inspection, Full Range of Motion Extremities: Normal Inspection, Normal Range of Motion, Non-Tender, No Pedal Edema, Normal Capillary Refill Peripheral Pulses: 2+: Radial (L), Radial (R), Dorsalis Pedis (L), Dorsalis Pedis (R) Skin: Warm, Dry, Intact Neurological: No New Focal Deficit Psy/Mental Status: Alert, Normal Affect, Normal Mood Sepsis Event Note - Evaluation Sepsis Screening Result: No Definite Risk - Focused Exam Vital Signs: Vital Signs Temp Pulse Resp BP BP Pulse Ox 08/07/20 11:41 133/63 95 08/07/20 11:40 95 08/07/20 11:37 95 08/07/20 10:52 93 L 08/07/20 10:25 97 08/07/20 09:06 68 137/107 H 08/07/20 09:05 137/107 H 08/07/20 09:04 97.8 F 20 137/107 H 93 L 08/07/20 09:03 137/107 H 92 L 08/07/20 09:02 90 L 08/07/20 09:00 92 L 08/07/20 08:00 91 L 08/07/20 07:00 90 L 08/07/20 06:00 90 L 08/07/20 05:00 88 L 08/07/20 04:00 92 L 08/07/20 03:52 138/98 H 94 L 08/07/20 03:51 93 L - Problem List & Annotations (1) Pneumonia due to 2019 novel coronavirus SNOMED Code(s): 333177458711970763 Code(s): U07.1 - COVID-19; J12.89 - OTHER VIRAL PNEUMONIA Status: Acute Priority: High Current Visit: Yes (2) Acute hypoxemic respiratory failure SNOMED Code(s): 504129444 Code(s): J96.01 - ACUTE RESPIRATORY FAILURE WITH HYPOXIA Status: Acute Priority: High Current Visit: Yes (3) HTN (hypertension) SNOMED Code(s): 43859884 Code(s): I10 - ESSENTIAL (PRIMARY) HYPERTENSION Status: Chronic Priority: Low Current Visit: No Qualifiers: Hypertension type: essential hypertension Qualified Code(s): I10 - Essential (primary) hypertension (4) Hyponatremia SNOMED Code(s): 00498957 Code(s): E87.1 - HYPO-OSMOLALITY AND HYPONATREMIA Status: Acute Priority: High Current Visit: Yes (5) Congestive heart failure (CHF) SNOMED Code(s): 32238593 Code(s): I50.9 - HEART FAILURE, UNSPECIFIED Status: Acute Priority: High Current Visit: Yes Qualifiers: Heart failure type: unspecified Heart failure chronicity: unspecified Qualified Code(s): I50.9 - Heart failure, unspecified (6) Essential tremor SNOMED Code(s): 210233418 Code(s): G25.0 - ESSENTIAL TREMOR Status: Chronic Priority: Medium Current Visit: Yes - Problem List Review Problem List Initiated/Reviewed/Updated: Yes - My Orders Last 24 Hours: My Active Orders 08/06/20 17:00 Metoprolol Tartrate [Lopressor] 75 mg PO BIDMEALS 08/06/20 18:23 Patient Status [ADT] Routine 08/07/20 14:30 Lidocaine 4% [Aspercreme 4%] 1 each TOP DAILY 08/07/20 21:00 Remove Patch 1 ea TRDERM BEDTIME 08/08/20 05:11 C-REACTIVE PROTEIN [CHEM] Q48H CBC WITH AUTO DIFF [HEME] DAILY COMPREHENSIVE METABOLIC PN,CMP [CHEM] DAILY D-DIMER QUANTITATIVE [COAG] Q48H MAGNESIUM [CHEM] DAILY 08/09/20 05:11 CBC WITH AUTO DIFF [HEME] DAILY COMPREHENSIVE METABOLIC PN,CMP [CHEM] DAILY MAGNESIUM [CHEM] DAILY 08/10/20 05:11 C-REACTIVE PROTEIN [CHEM] Q48H D-DIMER QUANTITATIVE [COAG] Q48H 08/12/20 05:11 C-REACTIVE PROTEIN [CHEM] Q48H D-DIMER QUANTITATIVE [COAG] Q48H 08/14/20 05:11 C-REACTIVE PROTEIN [CHEM] Q48H D-DIMER QUANTITATIVE [COAG] Q48H - Assessment Assessment:: 08/06/2020 * Patient's heart rate is still not controlled on current dose of metoprolol. Rate at times in the 1teens to 120's * Troponin down to 0.026. No further complaints of chest pain noted. * Labs reveal: WBC 14.78 which is decreased from 15.10, D-dimer 0.66, sodium up to 130, potassium 3.5, BUN 12, creatinine 0.5, GFR greater than 60, C-reactive protein 28.4. * Day 3 of remdesivir and dexamethasone. * Day 3 of Rocephin and Zithromax. * Patient is on room air. 08/07/20 * Heart rate is well controlled into the 60s and 80s * Labs reveal WBC 9.97, sodium 129, BUN 25, creatinine 0.6, GFR greater than 60 * Patient is -220 mL over the course of her last 24 hours with intake and output * Continues on room air * Blood pressures ranging 130s over 107-118. * Day 4 of remdesivir and dexamethasone * Day 4 of Rocephin * Ambulating with PT * Complaining of left knee pain requesting lidocaine patch * Echocardiogram report from 08/05/2020: 1. Left ventricular ejection fraction, by visual estimation, is 60 to 65%. 2. Mild concentric left ventricular hypertrophy. 3. Normal right ventricular systolic function. 4. Mild aortic valve stenosis. 5. Moderate thickening calcification and thickening of mitral leaflets. Probably in part to rheumatic disease with hockey deformity of anterior mitral leaflet and predominantly more leaflet tips thickening. Mild mitral stenosis with MG 5 mmHg heart rate 75 bpm 6. Mild tricuspid valve regurgitation. 7. Mild dilation of the ascending aorta. 8. The right ventricle systolic pressure is moderate to severely elevated at 62.7 mmHg. 9. No regional wall motion abnormalities. - Plan Plan:: 08/04/20 * 85-year-old female with gradual onset weakness, cough, decreased appetite, fever chills and diaphoresis that started about a week ago. Has been exposed to COVID-19 about 2 weeks ago at a . * Presented to the emergency department and was hypoxemic at 86% on room air. * Initial vital signs in the emergency department reveal a temp of 37.3 Celsius, pulse 84, respiratory rate 20, pressure 170/68, pulse ox 91% on 2 L of oxygen per nasal cannula * Labs in the ED revealed WBC 14.19, sodium 126, potassium 4.1, BUN 8, creatinine 0.6, GFR greater than 60, lactic acid 1.4, LDH 221, troponin I 0.019, C-reactive protein 18.7, D-dimer 1.03, ferritin 142, proBNP 2163, she is Covid positive, urinalysis is unremarkable for infection. Sets of blood cultures were also collected in the emergency department. * Portable chest x-ray reveals a mild increase in interstitial lung markings bilaterally. There is a nodule airspace opacity within the right midlung zone. Findings suggest a pneumonic infiltrate. Consider atypical viral etiology. Pleural spaces otherwise unremarkable with no pleural effusion or pneumothorax. Heart size is mildly prominent. 08/05/2020 * New onset atrial fibrillation with RVR overnight. Stabilized with IV metoprolol and oral metoprolol. * Patient did have some chest pain with the chest pain and her troponin increased slightly to 0.06 * Patient's chest pain when I examined was mostly in her abdomen. This did resolve with resolution of her A. fib RVR. * Patient continues to have hyponatremia 129, white count is elevated at 15.1 likely secondary to inflammation, hypokalemia with potassium of 3.2 and worsening of her proBNP at 3894. * Procalcitonin is less than 0.05. This makes it unlikely that her white count is secondary to significant bacterial infection. PLAN: Pneumonia due to 2019 novel coronavirus, Acute hypoxemic respiratory failure * Convalescent plasma 2 units today. I spoke with the patient to provide information about convalescent plasma for herself. I offered her the fax sheet for patients and caregivers for COVID-19 convalescent plasma to read and review. I stated the therapy has been approved by an emergency youth authorization process and has not fully been FDA reviewed or approved. I shared potential risks from the therapy including transmission of blood-borne pathogen such as HIV and hepatitis C, allergic and transfusion related reactions, post transfusion purpura. Additionally theoretical risks including a phenomenon called antibodydependent enhancement of infection such as seen in dengue or attenuation of an immune response that may make patients more susceptible to reinfection. I discussed there are other potential treatment options that are currently not FDA approved to treat COVID-19. Offered opportunity to ask questions and all questions were answered. The patient voiced understanding and agreed to proceed with treatment for herself. * Remdesivir 200 mg IV x1 dose then 100 mg daily x4 more doses. * Dexamethasone 6 mg p.o. daily x10 days * Rocephin 2 g daily x5 days * Zithromax 500 mg IV daily x3 days * Incentive spirometer and flutter valve every hour while awake 08/06/20 New onset A. fib with RVR * Rate is still not controlled on current dose of metoprolol. Increase metoprolol to 75 mg by mouth twice daily. * Anticoagulate secondary to A. fib with Eliquis HTN (hypertension) * Vital signs every 4 hours * Readjust antihypertensives based on blood pressure and adjustment of metoprolol Hyponatremia * Restart Lasix in the morning 20 mg daily as needed * 1500 mL fluid restriction every 24 hours * Monitor intake and output every 8 hours Congestive heart failure (CHF) * Furosemide 40mg IV x 1 dose today. * Follow-up chest x-rays as needed * Echocardiogram pending Eliquis for stroke and DVT prophylaxis Patient is a DNR/DNI PT OT to eval and treat Dietitian consult regarding patient's caloric needs food services director and case management for discharge planning Respiratory therapy to titrate oxygen to keep O2 saturations between 88 and 94% Change patient to MedSurg status with telemetry and continuous pulse oximetry. Discontinue Adkins catheter, but maintain strict VIJAYA and daily weight Patient will be here greater than 96 hours due to the standard 5-day treatment course for Covid 08/07/20 New onset A. fib with RVR * Rate is well controlled on metoprolol * Anticoagulate secondary to A. fib with Eliquis HTN (hypertension) * Vital signs every 4 hours * Readjust antihypertensives based on blood pressure and adjustment of metoprolol * Start chlorthalidone 12.5 mg daily Hyponatremia * Restart Lasix in the morning 20 mg daily as needed * 1500 mL fluid restriction every 24 hours * Monitor intake and output every 8 hours * Sodium 129 today. Upon further investigation and patient's previous hospital visits, this is a chronic issue. Will have patient's primary physician fo llow-up regarding this as patient is asymptomatic. Congestive heart failure (CHF) * Follow-up chest x-rays as needed * Lasix 20 mg daily as needed Eliquis for stroke and DVT prophylaxis Patient is a DNR/DNI PT OT to eval and treat food services director and case management for discharge planning patient has agreed to go to [facility] upon discharge. Respiratory therapy to titrate oxygen to keep O2 saturations between 88 and 94% Patient will be here greater than 96 hours due to the standard 5-day treatment course for Covid
[2020-08-07] MEDS: Dexamethasone 4 MG Tab PO SCH (15:39)
[2020-08-07] MEDS: Lidocaine 4% 1 each Patch TOP SCH (15:39)
[2020-08-07] MEDS: REMDESIVIR 100 MG in Sodium Chloride 0.9% 100 ML IV SCH (15:40)
[2020-08-07] MEDS ORDERED: Chlorthalidone 25 MG Tab PO SCH (16:00)
[2020-08-07] MEDS: Benzocaine/Cetylpyridinium/Menthol Lozenge MUCMEM PRN ×2 (16:51→19:00)
[2020-08-07] MEDS: cefTRIAXone 2 GM in Sodium Chloride 0.9% 100 ML IV SCH (17:30)
[2020-08-07] MEDS: LOVASTATIN 80 MG PO SCH (20:34)
[2020-08-07] MEDS: Gabapentin 300 MG Cap PO SCH (20:34)
[2020-08-07] MEDS: amLODIPine 5 MG Tab PO SCH (20:34)
[2020-08-07] MEDS: Albuterol 6.7 GM Inhaler INH PRN (20:35)
[2020-08-08] MEDS: Acetaminophen 325 MG Tab PO PRN (07:38)
[2020-08-08] MEDS: Benzonatate 100 MG Cap PO PRN ×2 (07:40→21:01)
[2020-08-08] MEDS: Metoprolol Tartrate 25 MG Tab PO SCH ×2 (07:43→17:36)
[2020-08-08] MEDS: Fluticasone Propionate Nasal Spray 16 GM Bottle NAS SCH ×3 (07:55→21:13)
[2020-08-08] MEDS: Cholecalciferol (Vitamin D3) 25 MCG Tab PO SCH ×2 (07:56→08:12)
[2020-08-08] MEDS: Spironolactone 25 MG Tab PO SCH ×2 (07:56→08:10)
[2020-08-08] MEDS: Primidone 50 MG Tab PO SCH ×3 (07:56→21:02)
[2020-08-08] MEDS: Apixaban 5 MG Tab PO SCH ×3 (07:57→21:03)
[2020-08-08] MEDS: Losartan 25 MG Tab PO SCH ×3 (07:57→21:03)
[2020-08-08] MEDS: Ezetimibe 10 MG Tab PO SCH ×2 (07:57→08:12)
[2020-08-08] MEDS: Zinc Sulfate 220 MG Cap PO SCH ×2 (07:58→08:13)
[2020-08-08] MEDS: Aspirin 81 MG Tab.EC PO SCH ×2 (07:58→08:12)
[2020-08-08] MEDS: Lidocaine 4% 1 each Patch TOP SCH (07:59)
[2020-08-08] MEDS: ALPRAZolam 0.25 MG Tab PO PRN ×2 (09:14→21:03)
--- NOTE | 2020-08-08 09:54 | PCM.PN ---
- General Info Date of Service: 08/08/20 Admission Dx/Problem (Free Text): Admission Diagnosis/Problem Admission Diagnosis/Problem Weakness Subjective Update: Delores is doing well overall. She is off oxygen. She does complain of a persistent cough. She was started on guaifenesin with codeine without any improvement. She is also getting Tessalon Perles. Patient also is having a good appetite at breakfast but skips lunch and eats a good dinner. Functional Status: Reports: Pain Controlled - Review of Systems General: Reports: No Symptoms HEENT: Reports: No Symptoms Pulmonary: Reports: Cough Cardiovascular: Reports: No Symptoms Gastrointestinal: Reports: No Symptoms Musculoskeletal: Reports: No Symptoms - Patient Data Vitals - Most Recent: Last Vital Signs Temp 97.6 F 08/08/20 07:36 Pulse 62 08/08/20 07:43 Resp 16 08/08/20 07:36 BP 157/69 H 08/08/20 07:57 Pulse Ox 95 08/08/20 08:00 Weight - Most Recent: 137 lb 11.2 oz I&O - Last 24 Hours: Intake & Output 08/07/20 08/08/20 08/08/20 22:59 06:59 14:59 Intake Total 520 300 Balance 520 300 Lab Results Last 24 Hours: Laboratory Results - last 24 hr 08/08/20 08/08/20 08/08/20 Range/Units 05:12 05:12 05:12 WBC 8.00 (3.98-10.04) K/mm3 RBC 3.54 L (3.98-5.22) M/mm3 Hgb 10.9 L (11.2-15.7) gm/dl Hct 33.6 L (34.1-44.9) % MCV 94.9 H (79.4-94.8) fl MCH 30.8 (25.6-32.2) pg MCHC 32.4 (32.2-35.5) g/dl RDW Std Deviation 47.9 H (36.4-46.3) fL Plt Count 349 (182-369) K/mm3 MPV 10.2 (9.4-12.3) fl Neut % (Auto) 50.7 (34.0-71.1) % Lymph % (Auto) 21.5 (19.3-51.7) % Vil[place] % (Auto) 26.9 H (4.7-12.5) % Eos % (Auto) 0 L (0.7-5.8) Baso % (Auto) 0.3 (0.1-1.2) % Neut # (Auto) 4.06 (1.56-6.13) K/mm3 Lymph # (Auto) 1.72 (1.18-3.74) K/mm3 Vil[place] # (Auto) 2.15 H (0.24-0.36) K/mm3 Eos # (Auto) 0.00 L (0.04-0.36) K/mm3 Baso # (Auto) 0.02 (0.01-0.08) K/mm3 Manual Slide Review Abnormal smear D-Dimer, Quantitative 0.85 H (0.19-0.50) mg/L Sodium 131 L (136-145) mEq/L Potassium 4.2 (3.5-5.1) mEq/L Chloride 94 L (98-107) mEq/L Carbon Dioxide 30 (21-32) mEq/L Anion Gap 11.2 (5-15) BUN 20 H (7-18) mg/dL Creatinine 0.6 (0.55-1.02) mg/dL Est Cr Clr Drug Dosing 48.34 mL/min Estimated GFR (MDRD) > 60 (>60) mL/min BUN/Creatinine Ratio 33.3 H (14-18) Glucose 136 H (83-115) mg/dL Calcium 8.3 L (8.5-10.1) mg/dL Magnesium 2.0 (1.8-2.4) mg/dl Total Bilirubin 0.3 (0.2-1.0) mg/dL AST 21 (15-37) U/L ALT 21 (14-59) U/L Alkaline Phosphatase 41 L (46-116) U/L C-Reactive Protein 9.3 H* (<1.0) mg/dL Total Protein 6.4 (6.4-8.2) g/dl Albumin 2.2 L (3.4-5.0) g/dl Globulin 4.2 gm/dL Albumin/Globulin Ratio 0.5 L (1-2) [place] Results Last 24 Hours: Microbiology 08/04/20 11:23 Aerobic Blood Culture - Preliminary Blood - Venous - Lab Draw NO GROWTH AFTER 3 DAYS Anaerobic Blood Culture - Preliminary NO GROWTH AFTER 3 DAYS 08/04/20 11:02 Aerobic Blood Culture - Preliminary Blood - Venous NO GROWTH AFTER 3 DAYS Anaerobic Blood Culture - Preliminary NO GROWTH AFTER 3 DAYS Med Orders - Current: Current Medications Acetaminophen (Tylenol) 650 mg PO Q4H PRN PRN Reason: Pain (Mild 1-3)/fever Last Admin: 08/08/20 07:38 Dose: 650 mg Documented by: Albuterol (Proventil Neb Soln) 2.5 mg NEB Q2H PRN PRN Reason: Shortness Of Breath/wheezing Albuterol (Proventil Hfa) 2 gm INH Q4H PRN PRN Reason: SOB/Cough Last Admin: 08/07/20 20:35 Dose: 2 puff Documented by: Alprazolam (Xanax) 0.25 mg PO Q12H PRN PRN Reason: Anxiety Last Admin: 08/08/20 09:14 Dose: 0.25 mg Documented by: Amlodipine Besylate (Norvasc) 5 mg PO BEDTIME [facility] Last Admin: 08/07/20 20:34 Dose: 5 mg Documented by: Apixaban (Eliquis) 5 mg PO BID [facility] Last Admin: 08/08/20 08:11 Dose: Not Given Documented by: Aspirin (Halfprin) 81 mg PO DAILY [facility] Last Admin: 08/08/20 08:12 Dose: Not Given Documented by: Benzocaine/Menthol (Cepacol Sore Throat) 1 lozenge MUCMEM ASDIRECTED PRN PRN Reason: Cough Last Admin: 08/07/20 19:00 Dose: 1 lozenge Documented by: Benzonatate (Tessalon Perles) 200 mg PO QID PRN PRN Reason: Cough Last Admin: 08/08/20 07:40 Dose: 200 mg Documented by: Calcium Carbonate/Glycine (Tums) 1,000 mg PO Q2H PRN PRN Reason: Indigestion Last Admin: 08/05/20 14:08 Dose: 1,000 mg Documented by: Cholecalciferol (Vitamin D3) 25 mcg PO DAILY [facility] Last Admin: 08/08/20 08:12 Dose: Not Given Documented by: Dexamethasone (Dexamethasone) 6 mg PO Q24H [facility] Stop: 08/13/20 16:01 Last Admin: 08/07/20 15:39 Dose: 6 mg Documented by: Docusate Sodium (Colace) 100 mg PO BID PRN PRN Reason: Constipation Ezetimibe (Zetia) 10 mg PO DAILY [facility] Last Admin: 08/08/20 08:12 Dose: Not Given Documented by: Fluticasone Propionate (Flonase) 0 gm LINDA BID [facility] Last Admin: 08/08/20 08:11 Dose: Not Given Documented by: Gabapentin (Neurontin) 300 mg PO BEDTIME [facility] Last Admin: 08/07/20 20:34 Dose: 300 mg Documented by: Remdesivir 100 mg/ Sodium (Chloride) 100 mls @ 100 mls/hr IV Q24H [facility] Stop: 08/08/20 16:59 Last Admin: 08/07/20 15:40 Dose: 100 mls/hr Documented by: Ceftriaxone Sodium 2 gm/ (Sodium Chloride) 100 mls @ 200 mls/hr IV Q24H [facility] Stop: 08/08/20 18:29 Last Admin: 08/07/20 17:30 Dose: 200 mls/hr Documented by: Diltiazem HCl 100 mg/ Sodium (Chloride) 100 mls @ 5 mls/hr IV TITRATE [facility]; Protocol Last Titration: 08/05/20 08:00 Dose: 0 mg/hr, 0 mls/hr Documented by: Lidocaine (Aspercreme 4%) 1 each TOP DAILY [facility] Last Admin: 08/08/20 07:59 Dose: 1 each Documented by: Losartan Potassium (Cozaar) 50 mg PO BID [facility] Last Admin: 08/08/20 08:10 Dose: Not Given Documented by: Magnesium Hydroxide (Milk Of Magnesia) 30 ml PO Q4H PRN PRN Reason: Constipation Metoprolol Tartrate (Lopressor) 75 mg PO BIDMEALS [facility] Last Admin: 08/08/20 07:43 Dose: 75 mg Documented by: Miscellaneous Information (Remove Patch) 1 ea TRDERM BEDTIME [facility] Last Admin: 08/08/20 05:00 Dose: Not Given Documented by: Nitroglycerin (Nitrostat) 0.4 mg SL ASDIRECTED PRN PRN Reason: Chest Pain Lovastatin 80 Mg (Ptom) 80 mg PO BEDTIME [facility] Last Admin: 08/07/20 20:34 Dose: Not Given Documented by: Ondansetron HCl (Zofran) 4 mg IV Q4H PRN PRN Reason: Nausea/Vomiting Primidone (Mysoline) 300 mg PO BID [facility] Last Admin: 08/08/20 08:12 Dose: Not Given Documented by: Sodium Chloride (Saline Flush) 10 ml FLUSH ASDIRECTED PRN PRN Reason: Keep Vein Open Spironolactone (Aldactone) 25 mg PO DAILY [facility] Last Admin: 08/08/20 08:10 Dose: Not Given Documented by: Zinc Sulfate (Zincate) 220 mg PO DAILY [facility] Last Admin: 08/08/20 08:13 Dose: Not Given Documented by: Discontinued Medications Acetaminophen (Tylenol) 975 mg PO ONETIME ONE Stop: 08/04/20 10:01 Last Admin: 08/04/20 10:52 Dose: 975 mg Documented by: Al Hydroxide/Mg Hydroxide (Mag-Al Plus) 30 ml PO Q4H PRN PRN Reason: Heartburn Stop: 08/07/20 04:13 Last Admin: 08/05/20 04:23 Dose: 30 ml Documented by: Chlorthalidone (Chlorthalidone) 12.5 mg PO DAILY [facility] Last Admin: 08/07/20 16:41 Dose: Not Given Documented by: Diltiazem HCl (Cardizem) 10 mg IVPUSH ONETIME ONE Stop: 08/05/20 03:24 Last Admin: 08/05/20 03:34 Dose: 10 mg Documented by: Diltiazem HCl (Cardizem) 10 mg IVPUSH ONETIME ONE Stop: 08/05/20 04:05 Last Admin: 08/05/20 04:11 Dose: 10 mg Documented by: Enoxaparin Sodium (Lovenox) 30 mg SUBCUT Q12H [facility] Last Admin: 08/04/20 16:56 Dose: 30 mg Documented by: Enoxaparin Sodium (Lovenox) 30 mg SUBCUT Q12H [facility] Last Admin: 08/05/20 17:33 Dose: 30 mg Documented by: Famotidine (Pepcid) 20 mg IVPUSH ONETIME ONE Stop: 08/05/20 09:01 Last Admin: 08/05/20 09:43 Dose: Not Given Documented by: Furosemide (Lasix) 40 mg IVPUSH NOW [facility] Stop: 08/04/20 17:00 Furosemide (Lasix) 20 mg IVPUSH ONETIME ONE Stop: 08/04/20 22:01 Last Admin: 08/04/20 22:43 Dose: 20 mg Documented by: Furosemide (Lasix) 40 mg IVPUSH NOW ONE Stop: 08/06/20 14:16 Last Admin: 08/06/20 14:29 Dose: 40 mg Documented by: Dextrose/Sodium Chloride (Dextrose 5%-Normal Saline) 1,000 mls @ 150 mls/hr IV ASDIRECTED [facility] Last Admin: 08/04/20 10:51 Dose: 150 mls/hr Documented by: Remdesivir 200 mg/ Sodium (Chloride) 250 mls @ 250 mls/hr IV ONETIME ONE Stop: 08/04/20 14:33 Last Admin: 08/04/20 16:54 Dose: 250 mls/hr Documented by: Azithromycin 500 mg/ Sodium (Chloride) 250 mls @ 250 mls/hr IV Q24H [facility] Stop: 08/06/20 17:59 Last Admin: 08/06/20 16:58 Dose: 250 mls/hr Documented by: Sodium Chloride (Normal Saline) Confirm Administered Dose 250 mls @ as directed .ROUTE .STK-MED ONE Stop: 08/04/20 20:59 Last Admin: 08/04/20 21:14 Dose: 50 mls/hr Documented by: Potassium Chloride 10 meq/ (Premix) 100 mls @ 100 mls/hr IV Q1H [facility] Stop: 08/05/20 12:59 Last Admin: 08/05/20 12:51 Dose: 100 mls/hr Documented by: Metoprolol Tartrate (Lopressor) 2.5 mg IVPUSH ONETIME ONE Stop: 08/05/20 07:47 Last Admin: 08/05/20 07:56 Dose: 2.5 mg Documented by: Metoprolol Tartrate (Lopressor) 50 mg PO BIDMEALS [facility] Last Admin: 08/06/20 08:24 Dose: 50 mg Documented by: Metoprolol Tartrate (Lopressor) 2.5 mg IVPUSH ONETIME ONE Stop: 08/05/20 08:13 Last Admin: 08/05/20 17:45 Dose: 2.5 mg Documented by: Metoprolol Tartrate (Lopressor) 25 mg PO ONETIME ONE Stop: 08/06/20 09:31 Last Admin: 08/06/20 09:31 Dose: 25 mg Documented by: Potassium Chloride (Klor-Con M20) 40 meq PO ONETIME ONE Stop: 08/06/20 11:01 Last Admin: 08/06/20 11:58 Dose: 40 meq Documented by: - Exam Quality Assessment: No: Supplemental Oxygen General: Alert, Oriented HEENT: Pupils Equal, Mucous Membr. Moist/[place] Neck: Supple Lungs: Clear to Auscultation, Normal Respiratory Effort Cardiovascular: Regular Rate, Regular Rhythm GI/Abdominal Exam: Normal Bowel Sounds, Soft, Non-Tender, No Distention, No Mass Extremities: Normal Inspection, No Pedal Edema, Normal Capillary Refill Skin: Warm, Dry, Intact Psy/Mental Status: Alert, Normal Affect, Normal Mood Sepsis Event Note - Evaluation Sepsis Screening Result: No Definite Risk - Focused Exam Vital Signs: Vital Signs Temp Pulse Resp BP BP BP Pulse Ox 08/08/20 08:00 95 08/08/20 07:57 157/69 H 08/08/20 07:43 62 157/69 H 08/08/20 07:36 97.6 F 16 157/69 H 92 L 08/08/20 07:00 92 L 08/08/20 06:00 08/08/20 03:00 97.0 F 20 161/66 H 91 L Pulse Ox 08/08/20 08:00 08/08/20 07:57 08/08/20 07:43 08/08/20 07:36 08/08/20 07:00 08/08/20 06:00 92 L 08/08/20 03:00 - Problem List & Annotations (1) New onset atrial fibrillation SNOMED Code(s): 24330244 Code(s): I48.91 - UNSPECIFIED ATRIAL FIBRILLATION Status: Acute Current Visit: Yes (2) Atrial fibrillation with rapid ventricular response SNOMED Code(s): 544687922679083 Code(s): I48.91 - UNSPECIFIED ATRIAL FIBRILLATION Status: Acute Current Visit: Yes (3) Acute hypoxemic respiratory failure SNOMED Code(s): 841596564 Code(s): J96.01 - ACUTE RESPIRATORY FAILURE WITH HYPOXIA Status: Acute Priority: High Current Visit: Yes (4) Congestive heart failure (CHF) SNOMED Code(s): 91029585 Code(s): I50.9 - HEART FAILURE, UNSPECIFIED Status: Acute Priority: High Current Visit: Yes Qualifiers: Heart failure type: unspecified Heart failure chronicity: unspecified Qualified Code(s): I50.9 - Heart failure, unspecified (5) Hyponatremia SNOMED Code(s): 86303929 Code(s): E87.1 - HYPO-OSMOLALITY AND HYPONATREMIA Status: Acute Priority: High Current Visit: Yes (6) Pneumonia due to 2019 novel coronavirus SNOMED Code(s): 403350318451661940 Code(s): U07.1 - COVID-19; J12.89 - OTHER VIRAL PNEUMONIA Status: Acute Priority: High Current Visit: Yes (7) Essential tremor SNOMED Code(s): 420077860 Code(s): G25.0 - ESSENTIAL TREMOR Status: Chronic Priority: Medium Current Visit: Yes - Problem List Review Problem List Initiated/Reviewed/Updated: Yes - My Orders Last 24 Hours: My Active Orders 08/07/20 21:00 amLODIPine [Norvasc] 5 mg PO BEDTIME - Assessment Assessment:: 08/06/2020 * Patient's heart rate is still not controlled on current dose of metoprolol. Rate at times in the 1teens to 120's * Troponin down to 0.026. No further complaints of chest pain noted. * Labs reveal: WBC 14.78 which is decreased from 15.10, D-dimer 0.66, sodium up to 130, potassium 3.5, BUN 12, creatinine 0.5, GFR greater than 60, C-reactive protein 28.4. * Day 3 of remdesivir and dexamethasone. * Day 3 of Rocephin and Zithromax. * Patient is on room air. 08/07/20 * Heart rate is well controlled into the 60s and 80s * Labs reveal WBC 9.97, sodium 129, BUN 25, creatinine 0.6, GFR greater than 60 * Patient is -220 mL over the course of her last 24 hours with intake and output * Continues on room air * Blood pressures ranging 130s over 107-118. * Day 4 of remdesivir and dexamethasone * Day 4 of Rocephin * Ambulating with PT * Complaining of left knee pain requesting lidocaine patch * Echocardiogram report from 08/05/2020: 1. Left ventricular ejection fraction, by visual estimation, is 60 to 65%. 2. Mild concentric left ventricular hypertrophy. 3. Normal right ventricular systolic function. 4. Mild aortic valve stenosis. 5. Moderate thickening calcification and thickening of mitral leaflets. Probably in part to rheumatic disease with hockey deformity of anterior mitral leaflet and predominantly more leaflet tips thickening. Mild mitral stenosis with MG 5 mmHg heart rate 75 bpm 6. Mild tricuspid valve regurgitation. 7. Mild dilation of the ascending aorta. 8. The right ventricle systolic pressure is moderate to severely elevated at 62.7 mmHg. 9. No regional wall motion abnormalities. 08/08/2020 * Heart rate continues to be well controlled. * White count and C-reactive protein are down. * Blood pressures have improved with the addition of Norvasc at night. * Day 5 of remdesivir, dexamethasone, and Rocephin * Off oxygen * Cough still problematic. * Pain improved except secondary to coughing. - Plan Plan:: 08/04/20 * 85-year-old female with gradual onset weakness, cough, decreased appetite, fever chills and diaphoresis that started about a week ago. Has been exposed to COVID-19 about 2 weeks ago at a . * Presented to the emergency department and was hypoxemic at 86% on room air. * Initial vital signs in the emergency department reveal a temp of 37.3 Celsius, pulse 84, respiratory rate 20, pressure 170/68, pulse ox 91% on 2 L of oxygen per nasal cannula * Labs in the ED revealed WBC 14.19, sodium 126, potassium 4.1, BUN 8, creatinine 0.6, GFR greater than 60, lactic acid 1.4, LDH 221, troponin I 0.019, C-reactive protein 18.7, D-dimer 1.03, ferritin 142, proBNP 2163, she is Covid positive, urinalysis is unremarkable for infection. Sets of blood cultures were also collected in the emergency department. * Portable chest x-ray reveals a mild increase in interstitial lung markings bilaterally. There is a nodule airspace opacity within the right midlung zone. Findings suggest a pneumonic infiltrate. Consider atypical viral etiology. Pleural spaces otherwise unremarkable with no pleural effusion or pneumothorax. Heart size is mildly prominent. 08/05/2020 * New onset atrial fibrillation with RVR overnight. Stabilized with IV m etoprolol and oral metoprolol. * Patient did have some chest pain with the chest pain and her troponin increased slightly to 0.06 * Patient's chest pain when I examined was mostly in her abdomen. This did resolve with resolution of her A. fib RVR. * Patient continues to have hyponatremia 129, white count is elevated at 15.1 likely secondary to inflammation, hypokalemia with potassium of 3.2 and wors ening of her proBNP at 3894. * Procalcitonin is less than 0.05. This makes it unlikely that her white count is secondary to significant bacterial infection. PLAN: Pneumonia due to 2019 novel coronavirus, Acute hypoxemic respiratory failure * Convalescent plasma 2 units today. I spoke with the patient to provide information about convalescent plasma for herself. I offered her the fax sheet for patients and caregivers for COVID-19 convalescent plasma to read and review. I stated the therapy has been approved by an emergency youth authorization process and has not fully been FDA reviewed or approved. I shared potential risks from the therapy including transmission of blood-borne pathogen such as HIV and hepatitis C, allergic and transfusion related reactions, post transfusion purpura. Additionally theoretical risks including a phenomenon called antibodydependent enhancement of infection such as seen in dengue or attenuation of an immune response that may make patients more susceptible to reinfection. I discussed there are other potential treatment options that are currently not FDA approved to treat COVID-19. Offered opportunity to ask questions and all questions were answered. The patient voiced understanding and agreed to proceed with treatment for herself. * Remdesivir 200 mg IV x1 dose then 100 mg daily x4 more doses. * Dexamethasone 6 mg p.o. daily x10 days * Rocephin 2 g daily x5 days * Zithromax 500 mg IV daily x3 days * Incentive spirometer and flutter valve every hour while awake 08/06/20 New onset A. fib with RVR * Rate is still not controlled on current dose of metoprolol. Increase metoprolol to 75 mg by mouth twice daily. * Anticoagulate secondary to A. fib with Eliquis HTN (hypertension) * Vital signs every 4 hours * Readjust antihypertensives based on blood pressure and adjustment of metoprolol Hyponatremia * Restart Lasix in the morning 20 mg daily as needed * 1500 mL fluid restriction every 24 hours * Monitor intake and output every 8 hours Congestive heart failure (CHF) * Furosemide 40mg IV x 1 dose today. * Follow-up chest x-rays as needed * Echocardiogram pending Eliquis for stroke and DVT prophylaxis Patient is a DNR/DNI PT OT to eval and treat Dietitian consult regarding patient's caloric needs consulting services project manager and case management for discharge planning Respiratory therapy to titrate oxygen to keep O2 saturations between 88 and 94% Change patient to MedSurg status with telemetry and continuous pulse oximetry. Discontinue Adkins catheter, but maintain strict VIJAYA and daily weight Patient will be here greater than 96 hours due to the standard 5-day treatment course for Covid 08/07/20 New onset A. fib with RVR * Rate is well controlled on metoprolol * Anticoagulate secondary to A. fib with Eliquis HTN (hypertension) * Vital signs every 4 hours * Readjust antihypertensives based on blood pressure and adjustment of metoprolol * Start chlorthalidone 12.5 mg daily Hyponatremia * Restart Lasix in the morning 20 mg daily as needed * 1500 mL fluid restriction every 24 hours * Monitor intake and output every 8 hours * Sodium 129 today. Upon further investigation and patient's previous hospital visits, this is a chronic issue. Will have patient's primary physician follow-up regarding this as patient is asymptomatic. Congestive heart failure (CHF) * Follow-up chest x-rays as needed * Lasix 20 mg daily as needed 08/08/2020 New onset A. fib with RVRstable * Rate is well controlled on metoprolol * Anticoagulate secondary to A. fib with Eliquis HTN (hypertension) * Vital signs every 4 hours * Readjust antihypertensives based on blood pressure and adjustment of metoprolol * Chlorthalidone was held secondary to hyponatremia * Norvasc restarted at a lower dose of 5 mg daily Hyponatremia * Lasix in the morning 20 mg daily as needed * 1500 mL fluid restriction every 24 hours * Monitor intake and output every 8 hours * Sodium 131 today. Upon further investigation and patient's previous hospital visits, this is a chronic issue. Will have patient's primary physician follow-up regarding this as patient is asymptomatic. Congestive heart failure (CHF) * Follow-up chest x-rays as needed * Lasix 20 mg daily as needed Eliquis for stroke and DVT prophylaxis Patient is a DNR/DNI PT OT to eval and treat consulting services project manager and case management for discharge planning patient has agreed to go to [facility] upon discharge. Respiratory therapy to titrate oxygen to keep O2 saturations between 88 and 94% Patient will be here greater than 96 hours due to the standard 5-day treatment course for Covid
[2020-08-08] MEDS: Codeine/guaiFENesin 10-100 MG/5 ML Syrup 5 ML Cup PO PRN ×2 (10:41→15:30)
[2020-08-08] MEDS: Albuterol 6.7 GM Inhaler INH PRN ×2 (12:37→21:51)
[2020-08-08] MEDS: guaiFENesin 600 MG Tab.ER PO SCH ×2 (15:30→21:01)
[2020-08-08] MEDS: Dexamethasone 4 MG Tab PO SCH (15:31)
[2020-08-08] MEDS: REMDESIVIR 100 MG in Sodium Chloride 0.9% 100 ML IV SCH (15:31)
[2020-08-08] MEDS: cefTRIAXone 2 GM in Sodium Chloride 0.9% 100 ML IV SCH (17:36)
[2020-08-08] MEDS: amLODIPine 5 MG Tab PO SCH (21:01)
[2020-08-08] MEDS: Gabapentin 300 MG Cap PO SCH (21:03)
[2020-08-08] MEDS: Codeine/Promethazine 10-6.25 MG/5 ML Syrup 5 ML UD Cup PO PRN (21:04)
[2020-08-08] MEDS: LOVASTATIN 80 MG PO SCH (21:14)
[2020-08-09] MEDS: Codeine/guaiFENesin 10-100 MG/5 ML Syrup 5 ML Cup PO PRN ×2 (05:08→09:09)
[2020-08-09] MEDS: Metoprolol Tartrate 25 MG Tab PO SCH ×2 (06:46→17:54)
[2020-08-09] MEDS: Apixaban 5 MG Tab PO SCH ×2 (09:10→20:43)
[2020-08-09] MEDS: Losartan 25 MG Tab PO SCH ×2 (09:10→20:42)
[2020-08-09] MEDS: Benzonatate 100 MG Cap PO PRN (09:10)
[2020-08-09] MEDS: Cholecalciferol (Vitamin D3) 25 MCG Tab PO SCH (09:10)
[2020-08-09] MEDS: Spironolactone 25 MG Tab PO SCH (09:10)
[2020-08-09] MEDS: Aspirin 81 MG Tab.EC PO SCH (09:10)
[2020-08-09] MEDS: Ezetimibe 10 MG Tab PO SCH (09:10)
[2020-08-09] MEDS: Zinc Sulfate 220 MG Cap PO SCH (09:10)
[2020-08-09] MEDS: Primidone 50 MG Tab PO SCH ×2 (09:11→20:45)
[2020-08-09] MEDS: guaiFENesin 600 MG Tab.ER PO SCH ×3 (09:11→20:44)
[2020-08-09] MEDS: Lidocaine 4% 1 each Patch TOP SCH (09:11)
[2020-08-09] MEDS: Fluticasone Propionate Nasal Spray 16 GM Bottle NAS SCH ×2 (09:14→22:26)
[2020-08-09] MEDS: Codeine/Promethazine 10-6.25 MG/5 ML Syrup 5 ML UD Cup PO PRN ×2 (10:28→20:48)
[2020-08-09] MEDS: ALPRAZolam 0.25 MG Tab PO PRN ×2 (10:28→20:50)
--- NOTE | 2020-08-09 17:11 | PCM.PN ---
- General Info Date of Service: 08/09/20 Admission Dx/Problem (Free Text): Admission Diagnosis/Problem Admission Diagnosis/Problem Weakness Subjective Update: Delores is doing well overall. She is off oxygen. She does complain of a persistent cough which has improved. Functional Status: Reports: Pain Controlled - Review of Systems General: Reports: No Symptoms HEENT: Reports: No Symptoms Pulmonary: Reports: Cough Cardiovascular: Reports: No Symptoms Gastrointestinal: Reports: No Symptoms Musculoskeletal: Reports: No Symptoms Neurological: Reports: No Symptoms Psychiatric: Reports: No Symptoms - Patient Data Vitals - Most Recent: Last Vital Signs Temp 97.4 F 08/09/20 15:00 Pulse 64 08/09/20 06:46 Resp 18 08/09/20 15:00 BP 141/74 H 08/09/20 15:00 Pulse Ox 92 L 08/09/20 15:00 Weight - Most Recent: 134 lb 1.6 oz I&O - Last 24 Hours: Intake & Output 08/09/20 08/09/20 08/09/20 06:59 14:59 22:59 Intake Total 300 500 Balance 300 500 Lab Results Last 24 Hours: Laboratory Results - last 24 hr 08/09/20 08/09/20 Range/Units 04:26 04:26 WBC 8.15 (3.98-10.04) K/mm3 RBC 3.07 L (3.98-5.22) M/mm3 Hgb 10.7 L (11.2-15.7) gm/dl Hct 30.6 L (34.1-44.9) % MCV 99.7 H (79.4-94.8) fl MCH 34.9 H (25.6-32.2) pg MCHC 35.0 (32.2-35.5) g/dl RDW Std Deviation 49.1 H (36.4-46.3) fL Plt Count 352 (182-369) K/mm3 MPV 10.5 (9.4-12.3) fl Neut % (Auto) 33.6 L (34.0-71.1) % Lymph % (Auto) 36.7 (19.3-51.7) % [place] % (Auto) 28.2 H (4.7-12.5) % Eos % (Auto) 0.9 (0.7-5.8) Baso % (Auto) 0.1 (0.1-1.2) % Neut # (Auto) 2.74 (1.56-6.13) K/mm3 Lymph # (Auto) 2.99 (1.18-3.74) K/mm3 [place] # (Auto) 2.30 H (0.24-0.36) K/mm3 Eos # (Auto) 0.07 (0.04-0.36) K/mm3 Baso # (Auto) 0.01 (0.01-0.08) K/mm3 Manual Slide Review Abnormal smear Sodium 133 L (136-145) mEq/L Potassium 4.4 (3.5-5.1) mEq/L Chloride 96 L (98-107) mEq/L Carbon Dioxide 33 H (21-32) mEq/L Anion Gap 8.4 (5-15) BUN 15 (7-18) mg/dL Creatinine 0.7 (0.55-1.02) mg/dL Est Cr Clr Drug Dosing 41.44 mL/min Estimated GFR (MDRD) > 60 (>60) mL/min BUN/Creatinine Ratio 21.4 H (14-18) Glucose 106 (83-115) mg/dL Calcium 8.5 (8.5-10.1) mg/dL Magnesium 1.9 (1.8-2.4) mg/dl Total Bilirubin 0.3 (0.2-1.0) mg/dL AST 28 (15-37) U/L ALT 23 (14-59) U/L Alkaline Phosphatase 45 L (46-116) U/L Total Protein 6.3 L (6.4-8.2) g/dl Albumin 2.3 L (3.4-5.0) g/dl Globulin 4.0 gm/dL Albumin/Globulin Ratio 0.6 L (1-2) [place] Results Last 24 Hours: Microbiology 08/04/20 11:23 Aerobic Blood Culture - Preliminary Blood - Venous - Lab Draw NO GROWTH AFTER 5 DAYS Anaerobic Blood Culture - Preliminary NO GROWTH AFTER 5 DAYS 08/04/20 11:02 Aerobic Blood Culture - Preliminary Blood - Venous NO GROWTH AFTER 5 DAYS Anaerobic Blood Culture - Preliminary NO GROWTH AFTER 5 DAYS Med Orders - Current: Current Medications Acetaminophen (Tylenol) 650 mg PO Q4H PRN PRN Reason: Pain (Mild 1-3)/fever Last Admin: 08/08/20 07:38 Dose: 650 mg Documented by: Albuterol (Proventil Neb Soln) 2.5 mg NEB Q2H PRN PRN Reason: Shortness Of Breath/wheezing Albuterol (Proventil Hfa) 2 gm INH Q4H PRN PRN Reason: SOB/Cough Last Admin: 08/08/20 21:51 Dose: 2 puff Documented by: Alprazolam (Xanax) 0.25 mg PO Q12H PRN PRN Reason: Anxiety Last Admin: 08/09/20 10:28 Dose: 0.25 mg Documented by: Amlodipine Besylate (Norvasc) 5 mg PO BEDTIME COUNTS INCLUDE 234 BEDS AT THE [facility] Last Admin: 08/08/20 21:01 Dose: 5 mg Documented by: Apixaban (Eliquis) 5 mg PO BID COUNTS INCLUDE 234 BEDS AT THE [facility] Last Admin: 08/09/20 09:10 Dose: 5 mg Documented by: Aspirin (Halfprin) 81 mg PO DAILY COUNTS INCLUDE 234 BEDS AT THE [facility] Last Admin: 08/09/20 09:10 Dose: 81 mg Documented by: Benzocaine/Menthol (Cepacol Sore Throat) 1 lozenge MUCMEM ASDIRECTED PRN PRN Reason: Cough Last Admin: 08/07/20 19:00 Dose: 1 lozenge Documented by: Benzonatate (Tessalon Perles) 200 mg PO QID PRN PRN Reason: Cough Last Admin: 08/09/20 09:10 Dose: 200 mg Documented by: Calcium Carbonate/Glycine (Tums) 1,000 mg PO Q2H PRN PRN Reason: Indigestion Last Admin: 08/05/20 14:08 Dose: 1,000 mg Documented by: Cholecalciferol (Vitamin D3) 25 mcg PO DAILY COUNTS INCLUDE 234 BEDS AT THE [facility] Last Admin: 08/09/20 09:10 Dose: 25 mcg Documented by: Dexamethasone (Dexamethasone) 6 mg PO Q24H COUNTS INCLUDE 234 BEDS AT THE [facility] Stop: 08/13/20 16:01 Last Admin: 08/08/20 15:31 Dose: 6 mg Documented by: Docusate Sodium (Colace) 100 mg PO BID PRN PRN Reason: Constipation Ezetimibe (Zetia) 10 mg PO DAILY COUNTS INCLUDE 234 BEDS AT THE [facility] Last Admin: 08/09/20 09:10 Dose: 10 mg Documented by: Fluticasone Propionate (Flonase) 0 gm LINDA BID COUNTS INCLUDE 234 BEDS AT THE [facility] Last Admin: 08/09/20 09:14 Dose: 1 spray Documented by: Gabapentin (Neurontin) 300 mg PO BEDTIME COUNTS INCLUDE 234 BEDS AT THE [facility] Last Admin: 08/08/20 21:03 Dose: 300 mg Documented by: Guaifenesin (Mucinex) 600 mg PO TID COUNTS INCLUDE 234 BEDS AT THE [facility] Last Admin: 08/09/20 14:13 Dose: 600 mg Documented by: Guaifenesin/Codeine Phosphate (Robitussin Ac) 5 ml PO Q4H PRN PRN Reason: Cough Last Admin: 08/09/20 09:09 Dose: 5 ml Documented by: Diltiazem HCl 100 mg/ Sodium (Chloride) 100 mls @ 5 mls/hr IV TITRATE COUNTS INCLUDE 234 BEDS AT THE [facility]; Protocol Last Titration: 08/05/20 08:00 Dose: 0 mg/hr, 0 mls/hr Documented by: Lidocaine (Aspercreme 4%) 1 each TOP DAILY COUNTS INCLUDE 234 BEDS AT THE [facility] Last Admin: 08/09/20 09:11 Dose: 1 each Documented by: Losartan Potassium (Cozaar) 50 mg PO BID COUNTS INCLUDE 234 BEDS AT THE [facility] Last Admin: 08/09/20 09:10 Dose: 50 mg Documented by: Magnesium Hydroxide (Milk Of Magnesia) 30 ml PO Q4H PRN PRN Reason: Constipation Metoprolol Tartrate (Lopressor) 75 mg PO BIDMEALS COUNTS INCLUDE 234 BEDS AT THE [facility] Last Admin: 08/09/20 06:46 Dose: 75 mg Documented by: Miscellaneous Information (Remove Patch) 1 ea TRDERM BEDTIME COUNTS INCLUDE 234 BEDS AT THE [facility] Last Admin: 08/08/20 21:10 Dose: 1 ea Documented by: Nitroglycerin (Nitrostat) 0.4 mg SL ASDIRECTED PRN PRN Reason: Chest Pain Lovastatin 80 Mg (Ptom) 80 mg PO BEDTIME COUNTS INCLUDE 234 BEDS AT THE [facility] Last Admin: 08/08/20 21:14 Dose: Not Given Documented by: Ondansetron HCl (Zofran) 4 mg IV Q4H PRN PRN Reason: Nausea/Vomiting Primidone (Mysoline) 300 mg PO BID COUNTS INCLUDE 234 BEDS AT THE [facility] Last Admin: 08/09/20 09:11 Dose: 300 mg Documented by: Promethazine HCl/Codeine (Phenergan With Codeine) 5 ml PO Q4HR PRN PRN Reason: Cough Last Admin: 08/09/20 10:28 Dose: 5 ml Documented by: Sodium Chloride (Saline Flush) 10 ml FLUSH ASDIRECTED PRN PRN Reason: Keep Vein Open Spironolactone (Aldactone) 25 mg PO DAILY COUNTS INCLUDE 234 BEDS AT THE [facility] Last Admin: 08/09/20 09:10 Dose: 25 mg Documented by: Zinc Sulfate (Zincate) 220 mg PO DAILY COUNTS INCLUDE 234 BEDS AT THE [facility] Last Admin: 08/09/20 09:10 Dose: 220 mg Documented by: Discontinued Medications Acetaminophen (Tylenol) 975 mg PO ONETIME ONE Stop: 08/04/20 10:01 Last Admin: 08/04/20 10:52 Dose: 975 mg Documented by: Al Hydroxide/Mg Hydroxide (Mag-Al Plus) 30 ml PO Q4H PRN PRN Reason: Heartburn Stop: 08/07/20 04:13 Last Admin: 08/05/20 04:23 Dose: 30 ml Documented by: Chlorthalidone (Chlorthalidone) 12.5 mg PO DAILY COUNTS INCLUDE 234 BEDS AT THE [facility] Last Admin: 08/07/20 16:41 Dose: Not Given Documented by: Diltiazem HCl (Cardizem) 10 mg IVPUSH ONETIME ONE Stop: 08/05/20 03:24 Last Admin: 08/05/20 03:34 Dose: 10 mg Documented by: Diltiazem HCl (Cardizem) 10 mg IVPUSH ONETIME ONE Stop: 08/05/20 04:05 Last Admin: 08/05/20 04:11 Dose: 10 mg Documented by: Enoxaparin Sodium (Lovenox) 30 mg SUBCUT Q12H COUNTS INCLUDE 234 BEDS AT THE [facility] Last Admin: 08/04/20 16:56 Dose: 30 mg Documented by: Enoxaparin Sodium (Lovenox) 30 mg SUBCUT Q12H COUNTS INCLUDE 234 BEDS AT THE [facility] Last Admin: 08/05/20 17:33 Dose: 30 mg Documented by: Famotidine (Pepcid) 20 mg IVPUSH ONETIME ONE Stop: 08/05/20 09:01 Last Admin: 08/05/20 09:43 Dose: Not Given Documented by: Furosemide (Lasix) 40 mg IVPUSH NOW COUNTS INCLUDE 234 BEDS AT THE [facility] Stop: 08/04/20 17:00 Furosemide (Lasix) 20 mg IVPUSH ONETIME ONE Stop: 08/04/20 22:01 Last Admin: 08/04/20 22:43 Dose: 20 mg Documented by: Furosemide (Lasix) 40 mg IVPUSH NOW ONE Stop: 08/06/20 14:16 Last Admin: 08/06/20 14:29 Dose: 40 mg Documented by: Dextrose/Sodium Chloride (Dextrose 5%-Normal Saline) 1,000 mls @ 150 mls/hr IV ASDIRECTED COUNTS INCLUDE 234 BEDS AT THE [facility] Last Admin: 08/04/20 10:51 Dose: 150 mls/hr Documented by: Remdesivir 200 mg/ Sodium (Chloride) 250 mls @ 250 mls/hr IV ONETIME ONE Stop: 08/04/20 14:33 Last Admin: 08/04/20 16:54 Dose: 250 mls/hr Documented by: Remdesivir 100 mg/ Sodium (Chloride) 100 mls @ 100 mls/hr IV Q24H COUNTS INCLUDE 234 BEDS AT THE [facility] Stop: 08/08/20 16:59 Last Admin: 08/08/20 15:31 Dose: 100 mls/hr Documented by: Azithromycin 500 mg/ Sodium (Chloride) 250 mls @ 250 mls/hr IV Q24H COUNTS INCLUDE 234 BEDS AT THE [facility] Stop: 08/06/20 17:59 Last Admin: 08/06/20 16:58 Dose: 250 mls/hr Documented by: Ceftriaxone Sodium 2 gm/ (Sodium Chloride) 100 mls @ 200 mls/hr IV Q24H COUNTS INCLUDE 234 BEDS AT THE [facility] Stop: 08/08/20 18:29 Last Admin: 08/08/20 17:36 Dose: 200 mls/hr Documented by: Sodium Chloride (Normal Saline) Confirm Administered Dose 250 mls @ as directed .ROUTE .STK-MED ONE Stop: 08/04/20 20:59 Last Admin: 08/04/20 21:14 Dose: 50 mls/hr Documented by: Potassium Chloride 10 meq/ (Premix) 100 mls @ 100 mls/hr IV Q1H COUNTS INCLUDE 234 BEDS AT THE [facility] Stop: 08/05/20 12:59 Last Admin: 08/05/20 12:51 Dose: 100 mls/hr Documented by: Metoprolol Tartrate (Lopressor) 2.5 mg IVPUSH ONETIME ONE Stop: 08/05/20 07:47 Last Admin: 08/05/20 07:56 Dose: 2.5 mg Documented by: Metoprolol Tartrate (Lopressor) 50 mg PO BIDMEALS COUNTS INCLUDE 234 BEDS AT THE [facility] Last Admin: 08/06/20 08:24 Dose: 50 mg Documented by: Metoprolol Tartrate (Lopressor) 2.5 mg IVPUSH ONETIME ONE Stop: 08/05/20 08:13 Last Admin: 08/05/20 17:45 Dose: 2.5 mg Documented by: Metoprolol Tartrate (Lopressor) 25 mg PO ONETIME ONE Stop: 08/06/20 09:31 Last Admin: 08/06/20 09:31 Dose: 25 mg Documented by: Potassium Chloride (Klor-Con M20) 40 meq PO ONETIME ONE Stop: 08/06/20 11:01 Last Admin: 08/06/20 11:58 Dose: 40 meq Documented by: - Exam Quality Assessment: No: Supplemental Oxygen General: Alert, Oriented HEENT: Pupils Equal, Mucous Membr. Moist/White Cloud Neck: Supple Lungs: Normal Respiratory Effort, Rales (Mild bibasilar) Cardiovascular: Regular Rate, Regular Rhythm GI/Abdominal Exam: Normal Bowel Sounds, Soft, No Distention, No Abnormal Bruit Extremities: Normal Inspection, Normal Range of Motion, Non-Tender, No Pedal Edema, Normal Capillary Refill Skin: Warm, Dry, Intact Sepsis Event Note - Evaluation Sepsis Screening Result: No Definite Risk - Focused Exam Vital Signs: Vital Signs Temp Pulse Resp BP BP Pulse Ox Pulse Ox 08/09/20 15:00 97.4 F 18 141/74 H 92 L 08/09/20 10:50 97.6 F 18 93 L 08/09/20 10:47 112/64 92 L 08/09/20 09:10 161/90 H 08/09/20 09:03 92 L 08/09/20 09:00 97.3 F 18 161/90 H 94 L 08/09/20 06:46 64 143/67 H 08/09/20 06:00 91 L - Problem List & Annotations (1) New onset atrial fibrillation SNOMED Code(s): 61015849 Code(s): I48.91 - UNSPECIFIED ATRIAL FIBRILLATION Status: Acute Current Visit: Yes (2) Atrial fibrillation with rapid ventricular response SNOMED Code(s): 487041303238284 Code(s): I48.91 - UNSPECIFIED ATRIAL FIBRILLATION Status: Acute Current Visit: Yes (3) Acute hypoxemic respiratory failure SNOMED Code(s): 827502912 Code(s): J96.01 - ACUTE RESPIRATORY FAILURE WITH HYPOXIA Status: Acute Priority: High Current Visit: Yes (4) Congestive heart failure (CHF) SNOMED Code(s): 01167001 Code(s): I50.9 - HEART FAILURE, UNSPECIFIED Status: Acute Priority: High Current Visit: Yes Qualifiers: Heart failure type: unspecified Heart failure chronicity: unspecified Qualified Code(s): I50.9 - Heart failure, unspecified (5) Hyponatremia SNOMED Code(s): 88210907 Code(s): E87.1 - HYPO-OSMOLALITY AND HYPONATREMIA Status: Acute Priority: High Current Visit: Yes (6) Pneumonia due to 2019 novel coronavirus SNOMED Code(s): 510225210478342483 Code(s): U07.1 - COVID-19; J12.89 - OTHER VIRAL PNEUMONIA Status: Acute Priority: High Current Visit: Yes (7) Essential tremor SNOMED Code(s): 178566833 Code(s): G25.0 - ESSENTIAL TREMOR Status: Chronic Priority: Medium Current Visit: Yes - Problem List Review Problem List Initiated/Reviewed/Updated: Yes - My Orders Last 24 Hours: My Active Orders 08/08/20 20:36 Codeine/Promethazine [Phenergan with Codeine] 5 ml PO Q4HR PRN - Assessment Assessment:: 08/06/2020 * Patient's heart rate is still not controlled on current dose of metoprolol. Rate at times in the 1teens to 120's * Troponin down to 0.026. No further complaints of chest pain noted. * Labs reveal: WBC 14.78 which is decreased from 15.10, D-dimer 0.66, sodium up to 130, potassium 3.5, BUN 12, creatinine 0.5, GFR greater than 60, C-reactive protein 28.4. * Day 3 of remdesivir and dexamethasone. * Day 3 of Rocephin and Zithromax. * Patient is on room air. 08/07/20 * Heart rate is well controlled into the 60s and 80s * Labs reveal WBC 9.97, sodium 129, BUN 25, creatinine 0.6, GFR greater than 60 * Patient is -220 mL over the course of her last 24 hours with intake and output * Continues on room air * Blood pressures ranging 130s over 107-118. * Day 4 of remdesivir and dexamethasone * Day 4 of Rocephin * Ambulating with PT * Complaining of left knee pain requesting lidocaine patch * Echocardiogram report from 08/05/2020: 1. Left ventricular ejection fraction, by visual estimation, is 60 to 65%. 2. Mild concentric left ventricular hypertrophy. 3. Normal right ventricular systolic function. 4. Mild aortic valve stenosis. 5. Moderate thickening calcification and thickening of mitral leaflets. Probably in part to rheumatic disease with hockey deformity of an terior mitral leaflet and predominantly more leaflet tips thickening. Mild mitral stenosis with MG 5 mmHg heart rate 75 bpm 6. Mild tricuspid valve regurgitation. 7. Mild dilation of the ascending aorta. 8. The right ventricle systolic pressure is moderate to severely elevated at 62.7 mmHg. 9. No regional wall motion abnormalities. 08/08/2020 * Heart rate continues to be well controlled. * White count and C-reactive protein are down. * Blood pressures have improved with the addition of Norvasc at night. * Day 5 of remdesivir, dexamethasone, and Rocephin * Off oxygen * Cough still problematic. * Pain improved except secondary to coughing. August 09, 2020 * Vital signs are stable * Labs: White count 8.2, hemoglobin 10.7, sodium 133, albumin 2.3 * Completed remdesivir and Rocephin * Slept well with Phenergan with codeine - Plan Plan:: 08/04/20 * 85-year-old female with gradual onset weakness, cough, decreased appetite, fever chills and diaphoresis that started about a week ago. Has been exposed to COVID-19 about 2 weeks ago at a . * Presented to the emergency department and was hypoxemic at 86% on room air. * Initial vital signs in the emergency department reveal a temp of 37.3 Celsius, pulse 84, respiratory rate 20, pressure 170/68, pulse ox 91% on 2 L of oxygen per nasal cannula * Labs in the ED revealed WBC 14.19, sodium 126, potassium 4.1, BUN 8, creatinine 0.6, GFR greater than 60, lactic acid 1.4, LDH 221, troponin I 0.019, C-reactive protein 18.7, D-dimer 1.03, ferritin 142, proBNP 2163, she is Covid positive, urinalysis is unremarkable for infection. Sets of blood cultures were also collected in the emergency department. * Portable chest x-ray reveals a mild increase in interstitial lung markings bilaterally. There is a nodule airspace opacity within the right midlung zone. Findings suggest a pneumonic infiltrate. Consider atypical viral etiology. Pleural spaces otherwise unremarkable with no pleural effusion or pneumothorax. Heart size is mildly prominent. 08/05/2020 * New onset atrial fibrillation with RVR overnight. Stabilized with IV metoprolol and oral metoprolol. * Patient did have some chest pain with the chest pain and her troponin increased slightly to 0.06 * Patient's chest pain when I examined was mostly in her abdomen. This did resolve with resolution of her A. fib RVR. * Patient continues to have hyponatremia 129, white count is elevated at 15.1 likely secondary to inflammation, hypokalemia with potassium of 3.2 and worsening of her proBNP at 3894. * Procalcitonin is less than 0.05. This makes it unlikely that her white count is secondary to significant bacterial infection. PLAN: Pneumonia due to 2019 novel coronavirus, Acute hypoxemic respiratory failure * Convalescent plasma 2 units today. I spoke with the patient to provide information about convalescent plasma for herself. I offered her the fax sheet for patients and caregivers for COVID-19 convalescent plasma to read and review. I stated the therapy has been approved by an emergency youth authorization process and has not fully been FDA reviewed or approved. I shared potential risks from the therapy including transmission of blood-borne pathogen such as HIV and hepatitis C, allergic and transfusion related reactions, post transfusion purpura. Additionally theoretical risks including a phenomenon called antibodydependent enhancement of infection such as seen in dengue or attenuation of an immune response that may make patients more susceptible to reinfection. I discussed there are other potential treatment options that are currently not FDA approved to treat COVID-19. Offered opportunity to ask questions and all questions were answered. The patient voiced understanding and agreed to proceed with treatment for herself. * Remdesivir 200 mg IV x1 dose then 100 mg daily x4 more doses. * Dexamethasone 6 mg p.o. daily x10 days * Rocephin 2 g daily x5 days * Zithromax 500 mg IV daily x3 days * Incentive spirometer and flutter valve every hour while awake 08/06/20 New onset A. fib with RVR * Rate is still not controlled on current dose of metoprolol. Increase metoprolol to 75 mg by mouth twice daily. * Anticoagulate secondary to A. fib with Eliquis HTN (hypertension) * Vital signs every 4 hours * Readjust antihypertensives based on blood pressure and adjustment of metoprolol Hyponatremia * Restart Lasix in the morning 20 mg daily as needed * 1500 mL fluid restriction every 24 hours * Monitor intake and output every 8 hours Congestive heart failure (CHF) * Furosemide 40mg IV x 1 dose today. * Follow-up chest x-rays as needed * Echocardiogram pending Eliquis for stroke and DVT prophylaxis Patient is a DNR/DNI PT OT to eval and treat Dietitian consult regarding patient's caloric needs support services tech and case management for discharge planning Respiratory therapy to titrate oxygen to keep O2 saturations between 88 and 94% Change patient to MedSurg status with telemetry and continuous pulse oximetry. Discontinue Adkins catheter, but maintain strict VIJAYA and daily weight Patient will be here greater than 96 hours due to the standard 5-day treatment course for Covid 08/07/20 New onset A. fib with RVR * Rate is well controlled on metoprolol * Anticoagulate secondary to A. fib with Eliquis HTN (hypertension) * Vital signs every 4 hours * Readjust antihypertensives based on blood pressure and adjustment of metoprolol * Start chlorthalidone 12.5 mg daily Hyponatremia * Restart Lasix in the morning 20 mg daily as needed * 1500 mL fluid restriction every 24 hours * Monitor intake and output every 8 hours * Sodium 129 today. Upon further investigation and patient's previous hospital visits, this is a chronic issue. Will have patient's primary physician follow-up regarding this as patient is asymptomatic. Congestive heart failure (CHF) * Follow-up chest x-rays as needed * Lasix 20 mg daily as needed 08/08/2020 New onset A. fib with RVRstable * Rate is well controlled on metoprolol * Anticoagulate secondary to A. fib with Eliquis HTN (hypertension) * Vital signs every 4 hours * Readjust antihypertensives based on blood pressure and adjustment of metoprolol * Chlorthalidone was held secondary to hyponatremia * Norvasc restarted at a lower dose of 5 mg daily Hyponatremia * Lasix in the morning 20 mg daily as needed * 1500 mL fluid restriction every 24 hours * Monitor intake and output every 8 hours * Sodium 131 today. Upon further investigation and patient's previous hospital visits, this is a chronic issue. Will have patient's primary physician follow-up regarding this as patient is asymptomatic. Congestive heart failure (CHF) * Follow-up chest x-rays as needed * Lasix 20 mg daily as needed 08/09/2020 New onset A. fib with RVRstable * Rate is well controlled on metoprolol * Anticoagulate secondary to A. fib with Eliquis HTN (hypertension) * Vital signs every 4 hours * Readjust antihypertensives based on blood pressure and adjustment of me toprolol * Chlorthalidone was held secondary to hyponatremia * Norvasc restarted at a lower dose of 5 mg at bedtime Hyponatremia * Lasix in the morning 20 mg daily as needed * 1500 mL fluid restriction every 24 hours * Monitor intake and output every 8 hours * Sodium 133improvedtoday. Upon further investigation and patient's previous hospital visits, this is a chronic issue. Will have patient's primary physician follow-up regarding this as patient is asymptomatic. Congestive heart failure (CHF) * Follow-up chest x-rays as needed * Lasix 20 mg daily as needed Eliquis for stroke and DVT prophylaxis Patient is a DNR/DNI PT OT to eval and treat support services tech and case management for discharge planning patient has agreed to go to [facility] upon discharge. Respiratory therapy to titrate oxygen to keep O2 saturations between 88 and 94% Patient will be here greater than 96 hours due to the standard 5-day treatment course for Covid
[2020-08-09] MEDS ORDERED: amLODIPine 5 MG Tab PO ONE (17:12)
[2020-08-09] MEDS: Dexamethasone 4 MG Tab PO SCH (17:14)
[2020-08-09] MEDS: Albuterol 6.7 GM Inhaler INH PRN (18:49)
[2020-08-09] MEDS: Gabapentin 300 MG Cap PO SCH (20:42)
[2020-08-09] MEDS: amLODIPine 5 MG Tab PO SCH (20:43)
[2020-08-09] MEDS ORDERED: amLODIPine 10 MG Tab PO SCH (21:00)
[2020-08-09] MEDS: LOVASTATIN 80 MG PO SCH (22:22)
[2020-08-10] MEDS: Codeine/guaiFENesin 10-100 MG/5 ML Syrup 5 ML Cup PO PRN ×3 (04:09→15:18)
[2020-08-10] MEDS: Benzonatate 100 MG Cap PO PRN ×2 (05:13→10:21)
[2020-08-10] MEDS: Albuterol 6.7 GM Inhaler INH PRN (05:22)
[2020-08-10] MEDS: Metoprolol Tartrate 25 MG Tab PO SCH ×2 (06:27→16:55)
[2020-08-10] MEDS: Primidone 50 MG Tab PO SCH ×2 (08:33→20:08)
[2020-08-10] MEDS: guaiFENesin 600 MG Tab.ER PO SCH ×3 (08:34→20:11)
[2020-08-10] MEDS: Ezetimibe 10 MG Tab PO SCH (08:34)
[2020-08-10] MEDS: Losartan 25 MG Tab PO SCH ×2 (08:34→20:19)
[2020-08-10] MEDS: Spironolactone 25 MG Tab PO SCH (08:34)
[2020-08-10] MEDS: Apixaban 5 MG Tab PO SCH ×2 (08:34→20:09)
[2020-08-10] MEDS: Zinc Sulfate 220 MG Cap PO SCH (08:34)
[2020-08-10] MEDS: Lidocaine 4% 1 each Patch TOP SCH (08:35)
[2020-08-10] MEDS: Cholecalciferol (Vitamin D3) 25 MCG Tab PO SCH (08:35)
[2020-08-10] MEDS: Aspirin 81 MG Tab.EC PO SCH (08:36)
[2020-08-10] MEDS: Fluticasone Propionate Nasal Spray 16 GM Bottle NAS SCH ×2 (08:37→21:14)
--- NOTE | 2020-08-10 09:25 | PCM.PN ---
- General Info Date of Service: 08/10/20 Admission Dx/Problem (Free Text): Admission Diagnosis/Problem Admission Diagnosis/Problem Weakness Subjective Update: Patient is doing well. She has no current complaints. Her appetite is good. She is not on any oxygen. She continues to have an annoying cough. Functional Status: Reports: Pain Controlled - Review of Systems General: Reports: No Symptoms HEENT: Reports: No Symptoms Pulmonary: Reports: Cough Cardiovascular: Reports: No Symptoms Gastrointestinal: Reports: No Symptoms Musculoskeletal: Reports: No Symptoms - Patient Data Vitals - Most Recent: Last Vital Signs Temp 97.9 F 08/10/20 08:31 Pulse 68 08/10/20 06:27 Resp 18 08/10/20 08:31 BP 144/76 H 08/10/20 08:34 Pulse Ox 97 08/10/20 08:31 Weight - Most Recent: 132 lb 7 oz I&O - Last 24 Hours: Intake & Output 08/09/20 08/10/20 08/10/20 22:59 06:59 14:59 Intake Total 300 300 Balance 300 300 [place] Results Last 24 Hours: Microbiology 08/04/20 11:23 Aerobic Blood Culture - Preliminary Blood - Venous - Lab Draw NO GROWTH AFTER 5 DAYS Anaerobic Blood Culture - Preliminary NO GROWTH AFTER 5 DAYS 08/04/20 11:02 Aerobic Blood Culture - Preliminary Blood - Venous NO GROWTH AFTER 5 DAYS Anaerobic Blood Culture - Preliminary NO GROWTH AFTER 5 DAYS Med Orders - Current: Current Medications Acetaminophen (Tylenol) 650 mg PO Q4H PRN PRN Reason: Pain (Mild 1-3)/fever Last Admin: 08/08/20 07:38 Dose: 650 mg Documented by: Albuterol (Proventil Neb Soln) 2.5 mg NEB Q2H PRN PRN Reason: Shortness Of Breath/wheezing Albuterol (Proventil Hfa) 2 gm INH Q4H PRN PRN Reason: SOB/Cough Last Admin: 08/10/20 05:22 Dose: 2 puff Documented by: Alprazolam (Xanax) 0.25 mg PO Q12H PRN PRN Reason: Anxiety Last Admin: 08/09/20 20:50 Dose: 0.25 mg Documented by: Amlodipine Besylate (Norvasc) 5 mg PO BEDTIME [facility] Last Admin: 08/09/20 20:43 Dose: 5 mg Documented by: Apixaban (Eliquis) 5 mg PO BID [facility] Last Admin: 08/10/20 08:34 Dose: 5 mg Documented by: Aspirin (Halfprin) 81 mg PO DAILY [facility] Last Admin: 08/10/20 08:36 Dose: 81 mg Documented by: Benzocaine/Menthol (Cepacol Sore Throat) 1 lozenge MUCMEM ASDIRECTED PRN PRN Reason: Cough Last Admin: 08/07/20 19:00 Dose: 1 lozenge Documented by: Benzonatate (Tessalon Perles) 200 mg PO QID PRN PRN Reason: Cough Last Admin: 08/10/20 05:13 Dose: 200 mg Documented by: Calcium Carbonate/Glycine (Tums) 1,000 mg PO Q2H PRN PRN Reason: Indigestion Last Admin: 08/05/20 14:08 Dose: 1,000 mg Documented by: Cholecalciferol (Vitamin D3) 25 mcg PO DAILY [facility] Last Admin: 08/10/20 08:35 Dose: 25 mcg Documented by: Dexamethasone (Dexamethasone) 6 mg PO Q24H [facility] Stop: 08/13/20 16:01 Last Admin: 08/09/20 17:14 Dose: 6 mg Documented by: Docusate Sodium (Colace) 100 mg PO BID PRN PRN Reason: Constipation Ezetimibe (Zetia) 10 mg PO DAILY [facility] Last Admin: 08/10/20 08:34 Dose: 10 mg Documented by: Fluticasone Propionate (Flonase) 0 gm LINDA BID [facility] Last Admin: 08/10/20 08:37 Dose: 1 spray Documented by: Gabapentin (Neurontin) 300 mg PO BEDTIME [facility] Last Admin: 08/09/20 20:42 Dose: 300 mg Documented by: Guaifenesin (Mucinex) 600 mg PO TID [facility] Last Admin: 08/10/20 08:34 Dose: 600 mg Documented by: Guaifenesin/Codeine Phosphate (Robitussin Ac) 5 ml PO Q4H PRN PRN Reason: Cough Last Admin: 08/10/20 08:35 Dose: 5 ml Documented by: Diltiazem HCl 100 mg/ Sodium (Chloride) 100 mls @ 5 mls/hr IV TITRATE [facility]; Protocol Last Titration: 08/05/20 08:00 Dose: 0 mg/hr, 0 mls/hr Documented by: Lidocaine (Aspercreme 4%) 1 each TOP DAILY [facility] Last Admin: 08/10/20 08:35 Dose: 1 each Documented by: Losartan Potassium (Cozaar) 50 mg PO BID [facility] Last Admin: 08/10/20 08:34 Dose: 50 mg Documented by: Magnesium Hydroxide (Milk Of Magnesia) 30 ml PO Q4H PRN PRN Reason: Constipation Metoprolol Tartrate (Lopressor) 75 mg PO BIDMEALS [facility] Last Admin: 08/10/20 06:27 Dose: 75 mg Documented by: Miscellaneous Information (Remove Patch) 1 ea TRDERM BEDTIME [facility] Last Admin: 08/09/20 20:52 Dose: 1 ea Documented by: Nitroglycerin (Nitrostat) 0.4 mg SL ASDIRECTED PRN PRN Reason: Chest Pain Lovastatin 80 Mg (Ptom) 80 mg PO BEDTIME [facility] Last Admin: 08/09/20 22:22 Dose: Not Given Documented by: Ondansetron HCl (Zofran) 4 mg IV Q4H PRN PRN Reason: Nausea/Vomiting Primidone (Mysoline) 300 mg PO BID [facility] Last Admin: 08/10/20 08:33 Dose: 300 mg Documented by: Promethazine HCl/Codeine (Phenergan With Codeine) 5 ml PO Q4HR PRN PRN Reason: Cough Last Admin: 08/09/20 20:48 Dose: 5 ml Documented by: Sodium Chloride (Saline Flush) 10 ml FLUSH ASDIRECTED PRN PRN Reason: Keep Vein Open Spironolactone (Aldactone) 25 mg PO DAILY [facility] Last Admin: 08/10/20 08:34 Dose: 25 mg Documented by: Zinc Sulfate (Zincate) 220 mg PO DAILY [facility] Last Admin: 08/10/20 08:34 Dose: 220 mg Documented by: Discontinued Medications Acetaminophen (Tylenol) 975 mg PO ONETIME ONE Stop: 08/04/20 10:01 Last Admin: 08/04/20 10:52 Dose: 975 mg Documented by: Al Hydroxide/Mg Hydroxide (Mag-Al Plus) 30 ml PO Q4H PRN PRN Reason: Heartburn Stop: 08/07/20 04:13 Last Admin: 08/05/20 04:23 Dose: 30 ml Documented by: Amlodipine Besylate (Norvasc) 5 mg PO BEDTIME [facility] Last Admin: 08/08/20 21:01 Dose: 5 mg Documented by: Amlodipine Besylate (Norvasc) 5 mg PO ONETIME ONE Stop: 08/09/20 17:13 Last Admin: 08/10/20 08:45 Dose: Not Given Documented by: Amlodipine Besylate (Norvasc) 10 mg PO BEDTIME [facility] Chlorthalidone (Chlorthalidone) 12.5 mg PO DAILY [facility] Last Admin: 08/07/20 16:41 Dose: Not Given Documented by: Diltiazem HCl (Cardizem) 10 mg IVPUSH ONETIME ONE Stop: 08/05/20 03:24 Last Admin: 08/05/20 03:34 Dose: 10 mg Documented by: Diltiazem HCl (Cardizem) 10 mg IVPUSH ONETIME ONE Stop: 08/05/20 04:05 Last Admin: 08/05/20 04:11 Dose: 10 mg Documented by: Enoxaparin Sodium (Lovenox) 30 mg SUBCUT Q12H [facility] Last Admin: 08/04/20 16:56 Dose: 30 mg Documented by: Enoxaparin Sodium (Lovenox) 30 mg SUBCUT Q12H [facility] Last Admin: 08/05/20 17:33 Dose: 30 mg Documented by: Famotidine (Pepcid) 20 mg IVPUSH ONETIME ONE Stop: 08/05/20 09:01 Last Admin: 08/05/20 09:43 Dose: Not Given Documented by: Furosemide (Lasix) 40 mg IVPUSH NOW [facility] Stop: 08/04/20 17:00 Furosemide (Lasix) 20 mg IVPUSH ONETIME ONE Stop: 08/04/20 22:01 Last Admin: 08/04/20 22:43 Dose: 20 mg Documented by: Furosemide (Lasix) 40 mg IVPUSH NOW ONE Stop: 08/06/20 14:16 Last Admin: 08/06/20 14:29 Dose: 40 mg Documented by: Dextrose/Sodium Chloride (Dextrose 5%-Normal Saline) 1,000 mls @ 150 mls/hr IV ASDIRECTED [facility] Last Admin: 08/04/20 10:51 Dose: 150 mls/hr Documented by: Remdesivir 200 mg/ Sodium (Chloride) 250 mls @ 250 mls/hr IV ONETIME ONE Stop: 08/04/20 14:33 Last Admin: 08/04/20 16:54 Dose: 250 mls/hr Documented by: Remdesivir 100 mg/ Sodium (Chloride) 100 mls @ 100 mls/hr IV Q24H [facility] Stop: 08/08/20 16:59 Last Admin: 08/08/20 15:31 Dose: 100 mls/hr Documented by: Azithromycin 500 mg/ Sodium (Chloride) 250 mls @ 250 mls/hr IV Q24H [facility] Stop: 08/06/20 17:59 Last Admin: 08/06/20 16:58 Dose: 250 mls/hr Documented by: Ceftriaxone Sodium 2 gm/ (Sodium Chloride) 100 mls @ 200 mls/hr IV Q24H [facility] Stop: 08/08/20 18:29 Last Admin: 08/08/20 17:36 Dose: 200 mls/hr Documented by: Sodium Chloride (Normal Saline) Confirm Administered Dose 250 mls @ as directed .ROUTE .STK-MED ONE Stop: 08/04/20 20:59 Last Admin: 08/04/20 21:14 Dose: 50 mls/hr Documented by: Potassium Chloride 10 meq/ (Premix) 100 mls @ 100 mls/hr IV Q1H [facility] Stop: 08/05/20 12:59 Last Admin: 08/05/20 12:51 Dose: 100 mls/hr Documented by: Metoprolol Tartrate (Lopressor) 2.5 mg IVPUSH ONETIME ONE Stop: 08/05/20 07:47 Last Admin: 08/05/20 07:56 Dose: 2.5 mg Documented by: Metoprolol Tartrate (Lopressor) 50 mg PO BIDMEALS [facility] Last Admin: 08/06/20 08:24 Dose: 50 mg Documented by: Metoprolol Tartrate (Lopressor) 2.5 mg IVPUSH ONETIME ONE Stop: 08/05/20 08:13 Last Admin: 08/05/20 17:45 Dose: 2.5 mg Documented by: Metoprolol Tartrate (Lopressor) 25 mg PO ONETIME ONE Stop: 08/06/20 09:31 Last Admin: 08/06/20 09:31 Dose: 25 mg Documented by: Potassium Chloride (Klor-Con M20) 40 meq PO ONETIME ONE Stop: 08/06/20 11:01 Last Admin: 08/06/20 11:58 Dose: 40 meq Documented by: - Exam Quality Assessment: No: Supplemental Oxygen General: Alert, Oriented HEENT: Pupils Equal, Mucous Membr. Moist/Louisa Neck: Supple Lungs: Clear to Auscultation, Normal Respiratory Effort Cardiovascular: Regular Rate, Regular Rhythm GI/Abdominal Exam: Normal Bowel Sounds, Soft, Non-Tender, No Distention Extremities: Normal Inspection, Normal Capillary Refill Skin: Warm, Dry, Intact Psy/Mental Status: Alert, Normal Affect, Normal Mood Sepsis Event Note - Evaluation Sepsis Screening Result: No Definite Risk - Focused Exam Vital Signs: Vital Signs Temp Pulse Pulse Resp BP BP Pulse Ox 08/10/20 08:34 144/76 H 08/10/20 08:31 97.9 F 18 144/76 H 97 08/10/20 06:27 68 131/71 08/10/20 05:23 08/10/20 04:00 97.1 F 71 20 136/74 93 L Pulse Ox 08/10/20 08:34 08/10/20 08:31 08/10/20 06:27 08/10/20 05:23 90 L 08/10/20 04:00 - Problem List & Annotations (1) New onset atrial fibrillation SNOMED Code(s): 49338318 Code(s): I48.91 - UNSPECIFIED ATRIAL FIBRILLATION Status: Acute Current Visit: Yes (2) Atrial fibrillation with rapid ventricular response SNOMED Code(s): 753519569215451 Code(s): I48.91 - UNSPECIFIED ATRIAL FIBRILLATION Status: Acute Current Visit: Yes (3) Acute hypoxemic respiratory failure SNOMED Code(s): 660039990 Code(s): J96.01 - ACUTE RESPIRATORY FAILURE WITH HYPOXIA Status: Acute Priority: High Current Visit: Yes (4) Congestive heart failure (CHF) SNOMED Code(s): 94156945 Code(s): I50.9 - HEART FAILURE, UNSPECIFIED Status: Acute Priority: High Current Visit: Yes Qualifiers: Heart failure type: unspecified Heart failure chronicity: unspecified Qualified Code(s): I50.9 - Heart failure, unspecified (5) Hyponatremia SNOMED Code(s): 69073859 Code(s): E87.1 - HYPO-OSMOLALITY AND HYPONATREMIA Status: Acute Priority: High Current Visit: Yes (6) Pneumonia due to 2019 novel coronavirus SNOMED Code(s): 910820833454668729 Code(s): U07.1 - COVID-19; J12.89 - OTHER VIRAL PNEUMONIA Status: Acute Priority: High Current Visit: Yes (7) Essential tremor SNOMED Code(s): 028658843 Code(s): G25.0 - ESSENTIAL TREMOR Status: Chronic Priority: Medium Current Visit: Yes - Problem List Review Problem List Initiated/Reviewed/Updated: Yes - My Orders Last 24 Hours: My Active Orders 08/09/20 21:00 amLODIPine [Norvasc] 5 mg PO BEDTIME - Assessment Assessment:: 08/06/2020 * Patient's heart rate is still not controlled on current dose of metoprolol. Rate at times in the 1teens to 120's * Troponin down to 0.026. No further complaints of chest pain noted. * Labs reveal: WBC 14.78 which is decreased from 15.10, D-dimer 0.66, sodium up to 130, potassium 3.5, BUN 12, creatinine 0.5, GFR greater than 60, C-reactive protein 28.4. * Day 3 of remdesivir and dexamethasone. * Day 3 of Rocephin and Zithromax. * Patient is on room air. 08/07/20 * Heart rate is well controlled into the 60s and 80s * Labs reveal WBC 9.97, sodium 129, BUN 25, creatinine 0.6, GFR greater than 60 * Patient is -220 mL over the course of her last 24 hours with intake and output * Continues on room air * Blood pressures ranging 130s over 107-118. * Day 4 of remdesivir and dexamethasone * Day 4 of Rocephin * Ambulating with PT * Complaining of left knee pain requesting lidocaine patch * Echocardiogram report from 08/05/2020: 1. Left ventricular ejection fraction, by visual estimation, is 60 to 65%. 2. Mild concentric left ventricular hypertrophy. 3. Normal right ventricular systolic function. 4. Mild aortic valve stenosis. 5. Moderate thickening calcification and thickening of mitral leaflets. Probably in part to rheumatic disease with hockey deformity of anterior mitral leaflet and predominantly more leaflet tips thickening. Mild mitral stenosis with MG 5 mmHg heart rate 75 bpm 6. Mild tricuspid valve regurgitation. 7. Mild dilation of the ascending aorta. 8. The right ventricle systolic pressure is moderate to severely elevated at 62.7 mmHg. 9. No regional wall motion abnormalities. 08/08/2020 * Heart rate continues to be well controlled. * White count and C-reactive protein are down. * Blood pressures have improved with the addition of Norvasc at night. * Day 5 of remdesivir, dexamethasone, and Rocephin * Off oxygen * Cough still problematic. * Pain improved except secondary to coughing. August 09, 2020 * Vital signs are stable * Labs: White count 8.2, hemoglobin 10.7, sodium 133, albumin 2.3 * Completed remdesivir and Rocephin * Slept well with Phenergan with codeine 08/10/2020 * Patient continues to improve. * No new labs drawn today. * Patient still plans on being discharged to [facility]. * Back on oral Lasix 20 mg daily * Cough is improving. * Completed remdesivir and Rocephin. * On day 7 of 10 of dexamethasone. * Blood pressures range from 135/75-157/58 - Plan Plan:: 08/04/20 * 85-year-old female with gradual onset weakness, cough, decreased appetite, fever chills and diaphoresis that started about a week ago. Has been exposed to COVID-19 about 2 weeks ago at a . * Presented to the emergency department and was hypoxemic at 86% on room air. * Initial vital signs in the emergency department reveal a temp of 37.3 Celsius, pulse 84, respiratory rate 20, pressure 170/68, pulse ox 91% on 2 L of oxygen per nasal cannula * Labs in the ED revealed WBC 14.19, sodium 126, potassium 4.1, BUN 8, creatinine 0.6, GFR greater than 60, lactic acid 1.4, LDH 221, troponin I 0.019, C-reactive protein 18.7, D-dimer 1.03, ferritin 142, proBNP 2163, she is Covid positive, urinalysis is unremarkable for infection. Sets of blood cultures were also collected in the emergency department. * Portable chest x-ray reveals a mild increase in interstitial lung markings bilaterally. There is a nodule airspace opacity within the right midlung zone. Findings suggest a pneumonic infiltrate. Consider atypical viral etiology. Pleural spaces otherwise unremarkable with no pleural effusion or pneumothorax. Heart size is mildly prominent. 08/05/2020 * New onset atrial fibrillation with RVR overnight. Stabilized with IV metoprolol and oral metoprolol. * Patient did have some chest pain with the chest pain and her troponin increased slightly to 0.06 * Patient's chest pain when I examined was mostly in her abdomen. This did resolve with resolution of her A. fib RVR. * Patient continues to have hyponatremia 129, white count is elevated at 15.1 likely secondary to inflammation, hypokalemia with potassium of 3.2 and worsening of her proBNP at 3894. * Procalcitonin is less than 0.05. This makes it unlikely that her white count is secondary to significant bacterial infection. PLAN: Pneumonia due to 2019 novel coronavirus, Acute hypoxemic respiratory failure * Convalescent plasma 2 units today. I spoke with the patient to provide information about convalescent plasma for herself. I offered her the fax sheet for patients and caregivers for COVID-19 convalescent plasma to read and review. I stated the therapy has been approved by an emergency youth authorization process and has not fully been FDA reviewed or approved. I shared potential risks from the therapy including transmission of blood-borne pathogen such as HIV and hepatitis C, allergic and transfusion related reactions, post transfusion purpura. Additionally theoretical risks including a phenomenon called antibodydependent enhancement of infection such as seen in dengue or attenuation of an immune response that may make patients more susceptible to reinfection. I discussed there are other potential treatment options that are currently not FDA approved to treat COVID-19. Offered opportunity to ask questions and all questions were answered. The patient voiced understanding and agreed to proceed with treatment for herself. * Remdesivir 200 mg IV x1 dose then 100 mg daily x4 more doses. * Dexamethasone 6 mg p.o. daily x10 days * Rocephin 2 g daily x5 days * Zithromax 500 mg IV daily x3 days * Incentive spirometer and flutter valve every hour while awake 08/06/20 New onset A. fib with RVR * Rate is still not controlled on current dose of metoprolol. Increase metoprolol to 75 mg by mouth twice daily. * Anticoagulate secondary to A. fib with Eliquis HTN (hypertension) * Vital signs every 4 hours * Readjust antihypertensives based on blood pressure and adjustment of metoprolol Hyponatremia * Restart Lasix in the morning 20 mg daily as needed * 1500 mL fluid restriction every 24 hours * Monitor intake and output every 8 hours Congestive heart failure (CHF) * Furosemide 40mg IV x 1 dose today. * Follow-up chest x-rays as needed * Echocardiogram pending Eliquis for stroke and DVT prophylaxis Patient is a DNR/DNI PT OT to eval and treat Dietitian consult regarding patient's caloric needs support services specialist and case management for discharge planning Respiratory therapy to titrate oxygen to keep O2 saturations between 88 and 94% Change patient to MedSurg status with telemetry and continuous pulse oximetry. Discontinue Adkins catheter, but maintain strict VIJAYA and daily weight Patient will be here greater than 96 hours due to the standard 5-day treatment course for Covid 08/07/20 New onset A. fib with RVR * Rate is well controlled on metoprolol * Anticoagulate secondary to A. fib with Eliquis HTN (hypertension) * Vital signs every 4 hours * Readjust antihypertensives based on blood pressure and adjustment of metoprolol * Start chlorthalidone 12.5 mg daily Hyponatremia * Restart Lasix in the morning 20 mg daily as needed * 1500 mL fluid restriction every 24 hours * Monitor intake and output every 8 hours * Sodium 129 today. Upon further investigation and patient's previous hospital visits, this is a chronic issue. Will have patient's primary physician follo w-up regarding this as patient is asymptomatic. Congestive heart failure (CHF) * Follow-up chest x-rays as needed * Lasix 20 mg daily as needed 08/08/2020 New onset A. fib with RVRstable * Rate is well controlled on metoprolol * Anticoagulate secondary to A. fib with Eliquis HTN (hypertension) * Vital signs every 4 hours * Readjust antihypertensives based on blood pressure and adjustment of metoprolol * Chlorthalidone was held secondary to hyponatremia * Norvasc restarted at a lower dose of 5 mg daily Hyponatremia * Lasix in the morning 20 mg daily as needed * 1500 mL fluid restriction every 24 hours * Monitor intake and output every 8 hours * Sodium 131 today. Upon further investigation and patient's previous hospital visits, this is a chronic issue. Will have patient's primary physician follow-up regarding this as patient is asymptomatic. Congestive heart failure (CHF) * Follow-up chest x-rays as needed * Lasix 20 mg daily as needed 08/09/2020 New onset A. fib with RVRstable * Rate is well controlled on metoprolol * Anticoagulate secondary to A. fib with Eliquis HTN (hypertension) * Vital signs every 4 hours * Readjust antihypertensives based on blood pressure and adjustment of metoprolol * Chlorthalidone was held secondary to hyponatremia * Norvasc restarted at a lower dose of 5 mg at bedtime Hyponatremia * Lasix in the morning 20 mg daily as needed * 1500 mL fluid restriction every 24 hours * Monitor intake and output every 8 hours * Sodium 133improvedtoday. Upon further investigation and patient's previous hospital visits, this is a chronic issue. Will have patient's primary physician follow-up regarding this as patient is asymptomatic. Congestive heart failure (CHF) * Follow-up chest x-rays as needed * Lasix 20 mg daily as needed 08/10/2020 New onset A. fib with RVRstable * Rate is well controlled on metoprolol * Anticoagulate secondary to A. fib with Eliquis HTN (hypertension) * Vital signs every 4 hours * Readjust antihypertensives based on blood pressure and adjustment of metoprolol * Chlorthalidone was held secondary to hyponatremia * Norvasc restarted at a lower dose of 5 mg at bedtime * Blood pressure is adequately treated Hyponatremia * Lasix 20 mg daily as needed * Increase fluid restriction to 2000 mL * Monitor intake and output every 8 hours * Recheck labs in the morning. Congestive heart failure (CHF) * Follow-up chest x-rays as needed * Lasix 20 mg daily as needed * Continue metoprolol Eliquis for stroke and DVT prophylaxis Patient is a DNR/DNI PT OT to eval and treat support services specialist and case management for discharge planning patient has agreed to go to [facility] upon discharge. Respiratory therapy to titrate oxygen to keep O2 saturations between 88 and 94% Patient will be here greater than 96 hours due to the standard 5-day treatment course for Covid
[2020-08-10] MEDS: Codeine/Promethazine 10-6.25 MG/5 ML Syrup 5 ML UD Cup PO PRN ×2 (10:20→20:07)
[2020-08-10] MEDS: ALPRAZolam 0.25 MG Tab PO PRN ×2 (10:20→21:14)
[2020-08-10] MEDS: Dexamethasone 4 MG Tab PO SCH (15:18)
[2020-08-10] MEDS: Gabapentin 300 MG Cap PO SCH (20:11)
[2020-08-10] MEDS: amLODIPine 5 MG Tab PO SCH (20:18)
[2020-08-10] MEDS: LOVASTATIN 80 MG PO SCH (20:18)
[2020-08-11] MEDS: Benzonatate 100 MG Cap PO PRN ×2 (01:53→08:55)
[2020-08-11] MEDS: Albuterol 6.7 GM Inhaler INH PRN (02:02)
[2020-08-11] MEDS: guaiFENesin 600 MG Tab.ER PO SCH ×3 (08:54→20:07)
[2020-08-11] MEDS: Codeine/guaiFENesin 10-100 MG/5 ML Syrup 5 ML Cup PO PRN (08:54)
[2020-08-11] MEDS: Primidone 50 MG Tab PO SCH ×2 (08:54→20:08)
[2020-08-11] MEDS: Metoprolol Tartrate 25 MG Tab PO SCH ×2 (08:54→17:36)
[2020-08-11] MEDS: ALPRAZolam 0.25 MG Tab PO PRN ×2 (08:55→20:07)
[2020-08-11] MEDS: Apixaban 5 MG Tab PO SCH ×2 (08:55→20:08)
[2020-08-11] MEDS: Aspirin 81 MG Tab.EC PO SCH (08:55)
[2020-08-11] MEDS: Losartan 25 MG Tab PO SCH ×2 (08:55→20:15)
[2020-08-11] MEDS: Zinc Sulfate 220 MG Cap PO SCH (08:56)
[2020-08-11] MEDS: Cholecalciferol (Vitamin D3) 25 MCG Tab PO SCH (08:56)
[2020-08-11] MEDS: Lidocaine 4% 1 each Patch TOP SCH (08:56)
[2020-08-11] MEDS: Ezetimibe 10 MG Tab PO SCH (08:56)
[2020-08-11] MEDS: Spironolactone 25 MG Tab PO SCH (08:56)
[2020-08-11] MEDS: Fluticasone Propionate Nasal Spray 16 GM Bottle NAS SCH ×2 (08:57→20:08)
--- NOTE | 2020-08-11 10:08 | PCM.PN ---
- General Info Date of Service: 08/11/20 Admission Dx/Problem (Free Text): Admission Diagnosis/Problem Admission Diagnosis/Problem Weakness Subjective Update: Pt reports feeling well. States she has a persistent, nonproductive cough. Functional Status: Reports: Pain Controlled, Tolerating Diet, Ambulating, Urinating (With physical therapy), Incentive Spirometry - Review of Systems General: Reports: No Symptoms HEENT: Reports: No Symptoms Pulmonary: Reports: Cough. Denies: Sputum, Wheezing Cardiovascular: Reports: No Symptoms Gastrointestinal: Reports: No Symptoms Genitourinary: Reports: No Symptoms Musculoskeletal: Reports: No Symptoms Skin: Reports: No Symptoms Neurological: Reports: No Symptoms Psychiatric: Reports: No Symptoms - Patient Data Vitals - Most Recent: Last Vital Signs Temp 97.5 F 08/11/20 08:15 Pulse 81 08/11/20 08:54 Resp 18 08/11/20 08:15 BP 177/77 H 08/11/20 08:55 Pulse Ox 92 L 08/11/20 08:15 Weight - Most Recent: 134 lb I&O - Last 24 Hours: Intake & Output 08/10/20 08/11/20 08/11/20 22:59 06:59 14:59 Intake Total 850 550 Balance 850 550 Lab Results Last 24 Hours: Laboratory Results - last 24 hr 08/11/20 08/11/20 08/11/20 Range/Units 05:09 05:09 05:09 WBC 11.25 H (3.98-10.04) K/mm3 RBC 3.24 L (3.98-5.22) M/mm3 Hgb 10.8 L (11.2-15.7) gm/dl Hct 31.9 L (34.1-44.9) % MCV 98.5 H (79.4-94.8) fl MCH 33.3 H (25.6-32.2) pg MCHC 33.9 (32.2-35.5) g/dl RDW Std Deviation 48.7 H (36.4-46.3) fL Plt Count 425 H (182-369) K/mm3 MPV 10.3 (9.4-12.3) fl Neut % (Auto) 39.2 (34.0-71.1) % Lymph % (Auto) 27.1 (19.3-51.7) % Evangeline % (Auto) 31.6 H (4.7-12.5) % Eos % (Auto) 1.2 (0.7-5.8) Baso % (Auto) 0.1 (0.1-1.2) % Neut # (Auto) 4.41 (1.56-6.13) K/mm3 Lymph # (Auto) 3.05 (1.18-3.74) K/mm3 Ev[place]eline # (Auto) 3.56 H (0.24-0.36) K/mm3 Eos # (Auto) 0.13 (0.04-0.36) K/mm3 Baso # (Auto) 0.01 (0.01-0.08) K/mm3 Manual Slide Review Abnormal smear D-Dimer, Quantitative 0.90 H (0.19-0.50) mg/L Sodium 132 L (136-145) mEq/L Potassium 4.5 (3.5-5.1) mEq/L Chloride 96 L (98-107) mEq/L Carbon Dioxide 33 H (21-32) mEq/L Anion Gap 7.5 (5-15) BUN 13 (7-18) mg/dL Creatinine 0.5 L (0.55-1.02) mg/dL Est Cr Clr Drug Dosing 58.01 mL/min Estimated GFR (MDRD) > 60 (>60) mL/min BUN/Creatinine Ratio 26.0 H (14-18) Glucose 93 (83-115) mg/dL Calcium 8.6 (8.5-10.1) mg/dL Phosphorus 3.8 (2.6-4.7) mg/dL Magnesium 1.8 (1.8-2.4) mg/dl Total Bilirubin 0.4 (0.2-1.0) mg/dL AST 17 (15-37) U/L ALT 22 (14-59) U/L Alkaline Phosphatase 51 (46-116) U/L C-Reactive Protein 3.4 H* (<1.0) mg/dL Total Protein 6.2 L (6.4-8.2) g/dl Albumin 2.3 L (3.4-5.0) g/dl Globulin 3.9 gm/dL Albumin/Globulin Ratio 0.6 L (1-2) [place] Results Last 24 Hours: Microbiology 08/04/20 11:23 Aerobic Blood Culture - Preliminary Blood - Venous - Lab Draw NO GROWTH AFTER 6 DAYS Anaerobic Blood Culture - Preliminary NO GROWTH AFTER 6 DAYS 08/04/20 11:02 Aerobic Blood Culture - Preliminary Blood - Venous NO GROWTH AFTER 6 DAYS Anaerobic Blood Culture - Preliminary NO GROWTH AFTER 6 DAYS Med Orders - Current: Current Medications Acetaminophen (Tylenol) 650 mg PO Q4H PRN PRN Reason: Pain (Mild 1-3)/fever Last Admin: 08/08/20 07:38 Dose: 650 mg Documented by: Albuterol (Proventil Neb Soln) 2.5 mg NEB Q2H PRN PRN Reason: Shortness Of Breath/wheezing Albuterol (Proventil Hfa) 2 gm INH Q4H PRN PRN Reason: SOB/Cough Last Admin: 08/11/20 02:02 Dose: 2 puff Documented by: Alprazolam (Xanax) 0.25 mg PO Q12H PRN PRN Reason: Anxiety Last Admin: 08/11/20 08:55 Dose: 0.25 mg Documented by: Amlodipine Besylate (Norvasc) 10 mg PO BEDTIME COUNT INCLUDES THE [facility] Apixaban (Eliquis) 5 mg PO BID COUNT INCLUDES THE [facility] Last Admin: 08/11/20 08:55 Dose: 5 mg Documented by: Aspirin (Halfprin) 81 mg PO DAILY COUNT INCLUDES THE [facility] Last Admin: 08/11/20 08:55 Dose: 81 mg Documented by: Benzocaine/Menthol (Cepacol Sore Throat) 1 lozenge MUCMEM ASDIRECTED PRN PRN Reason: Cough Last Admin: 08/07/20 19:00 Dose: 1 lozenge Documented by: Benzonatate (Tessalon Perles) 200 mg PO QID PRN PRN Reason: Cough Last Admin: 08/11/20 08:55 Dose: 200 mg Documented by: Calcium Carbonate/Glycine (Tums) 1,000 mg PO Q2H PRN PRN Reason: Indigestion Last Admin: 08/05/20 14:08 Dose: 1,000 mg Documented by: Cholecalciferol (Vitamin D3) 25 mcg PO DAILY COUNT INCLUDES THE [facility] Last Admin: 08/11/20 08:56 Dose: 25 mcg Documented by: Dexamethasone (Dexamethasone) 6 mg PO Q24H COUNT INCLUDES THE [facility] Stop: 08/13/20 16:01 Last Admin: 08/10/20 15:18 Dose: 6 mg Documented by: Docusate Sodium (Colace) 100 mg PO BID PRN PRN Reason: Constipation Ezetimibe (Zetia) 10 mg PO DAILY COUNT INCLUDES THE [facility] Last Admin: 08/11/20 08:56 Dose: 10 mg Documented by: Fluticasone Propionate (Flonase) 0 gm LINDA BID COUNT INCLUDES THE [facility] Last Admin: 08/11/20 08:57 Dose: 1 spray Documented by: Gabapentin (Neurontin) 300 mg PO BEDTIME COUNT INCLUDES THE [facility] Last Admin: 08/10/20 20:11 Dose: 300 mg Documented by: Guaifenesin (Mucinex) 600 mg PO TID COUNT INCLUDES THE [facility] Last Admin: 08/11/20 08:54 Dose: 600 mg Documented by: Guaifenesin/Codeine Phosphate (Robitussin Ac) 5 ml PO Q4H PRN PRN Reason: Cough Last Admin: 08/11/20 08:54 Dose: 5 ml Documented by: Diltiazem HCl 100 mg/ Sodium (Chloride) 100 mls @ 5 mls/hr IV TITRATE COUNT INCLUDES THE [facility]; Protocol Last Titration: 08/05/20 08:00 Dose: 0 mg/hr, 0 mls/hr Documented by: Lidocaine (Aspercreme 4%) 1 each TOP DAILY COUNT INCLUDES THE [facility] Last Admin: 08/11/20 08:56 Dose: 1 each Documented by: Losartan Potassium (Cozaar) 50 mg PO BID COUNT INCLUDES THE [facility] Last Admin: 08/11/20 08:55 Dose: 50 mg Documented by: Magnesium Hydroxide (Milk Of Magnesia) 30 ml PO Q4H PRN PRN Reason: Constipation Metoprolol Tartrate (Lopressor) 75 mg PO BIDMEALS COUNT INCLUDES THE [facility] Last Admin: 08/11/20 08:54 Dose: 75 mg Documented by: Miscellaneous Information (Remove Patch) 1 ea TRDERM BEDTIME COUNT INCLUDES THE [facility] Last Admin: 08/10/20 21:14 Dose: 1 ea Documented by: Nitroglycerin (Nitrostat) 0.4 mg SL ASDIRECTED PRN PRN Reason: Chest Pain Lovastatin 80 Mg (Ptom) 80 mg PO BEDTIME COUNT INCLUDES THE [facility] Last Admin: 08/10/20 20:18 Dose: Not Given Documented by: Ondansetron HCl (Zofran) 4 mg IV Q4H PRN PRN Reason: Nausea/Vomiting Primidone (Mysoline) 300 mg PO BID COUNT INCLUDES THE [facility] Last Admin: 08/11/20 08:54 Dose: 300 mg Documented by: Promethazine HCl/Codeine (Phenergan With Codeine) 5 ml PO Q4HR PRN PRN Reason: Cough Last Admin: 08/10/20 20:07 Dose: 5 ml Documented by: Sodium Chloride (Saline Flush) 10 ml FLUSH ASDIRECTED PRN PRN Reason: Keep Vein Open Spironolactone (Aldactone) 25 mg PO DAILY COUNT INCLUDES THE [facility] Last Admin: 08/11/20 08:56 Dose: 25 mg Documented by: Zinc Sulfate (Zincate) 220 mg PO DAILY COUNT INCLUDES THE [facility] Last Admin: 08/11/20 08:56 Dose: 220 mg Documented by: Discontinued Medications Acetaminophen (Tylenol) 975 mg PO ONETIME ONE Stop: 08/04/20 10:01 Last Admin: 08/04/20 10:52 Dose: 975 mg Documented by: Al Hydroxide/Mg Hydroxide (Mag-Al Plus) 30 ml PO Q4H PRN PRN Reason: Heartburn Stop: 08/07/20 04:13 Last Admin: 08/05/20 04:23 Dose: 30 ml Documented by: Amlodipine Besylate (Norvasc) 5 mg PO BEDTIME COUNT INCLUDES THE [facility] Last Admin: 08/08/20 21:01 Dose: 5 mg Documented by: Amlodipine Besylate (Norvasc) 5 mg PO ONETIME ONE Stop: 08/09/20 17:13 Last Admin: 08/10/20 08:45 Dose: Not Given Documented by: Amlodipine Besylate (Norvasc) 10 mg PO BEDTIME COUNT INCLUDES THE [facility] Amlodipine Besylate (Norvasc) 5 mg PO BEDTIME COUNT INCLUDES THE [facility] Last Admin: 08/10/20 20:18 Dose: 5 mg Documented by: Chlorthalidone (Chlorthalidone) 12.5 mg PO DAILY COUNT INCLUDES THE [facility] Last Admin: 08/07/20 16:41 Dose: Not Given Documented by: Diltiazem HCl (Cardizem) 10 mg IVPUSH ONETIME ONE Stop: 08/05/20 03:24 Last Admin: 08/05/20 03:34 Dose: 10 mg Documented by: Diltiazem HCl (Cardizem) 10 mg IVPUSH ONETIME ONE Stop: 08/05/20 04:05 Last Admin: 08/05/20 04:11 Dose: 10 mg Documented by: Enoxaparin Sodium (Lovenox) 30 mg SUBCUT Q12H COUNT INCLUDES THE [facility] Last Admin: 08/04/20 16:56 Dose: 30 mg Documented by: Enoxaparin Sodium (Lovenox) 30 mg SUBCUT Q12H COUNT INCLUDES THE [facility] Last Admin: 08/05/20 17:33 Dose: 30 mg Documented by: Famotidine (Pepcid) 20 mg IVPUSH ONETIME ONE Stop: 08/05/20 09:01 Last Admin: 08/05/20 09:43 Dose: Not Given Documented by: Furosemide (Lasix) 40 mg IVPUSH NOW ROBE Stop: 08/04/20 17:00 Furosemide (Lasix) 20 mg IVPUSH ONETIME ONE Stop: 08/04/20 22:01 Last Admin: 08/04/20 22:43 Dose: 20 mg Documented by: Furosemide (Lasix) 40 mg IVPUSH NOW ONE Stop: 08/06/20 14:16 Last Admin: 08/06/20 14:29 Dose: 40 mg Documented by: Dextrose/Sodium Chloride (Dextrose 5%-Normal Saline) 1,000 mls @ 150 mls/hr IV ASDIRECTED COUNT INCLUDES THE [facility] Last Admin: 08/04/20 10:51 Dose: 150 mls/hr Documented by: Remdesivir 200 mg/ Sodium (Chloride) 250 mls @ 250 mls/hr IV ONETIME ONE Stop: 08/04/20 14:33 Last Admin: 08/04/20 16:54 Dose: 250 mls/hr Documented by: Remdesivir 100 mg/ Sodium (Chloride) 100 mls @ 100 mls/hr IV Q24H COUNT INCLUDES THE [facility] Stop: 08/08/20 16:59 Last Admin: 08/08/20 15:31 Dose: 100 mls/hr Documented by: Azithromycin 500 mg/ Sodium (Chloride) 250 mls @ 250 mls/hr IV Q24H COUNT INCLUDES THE [facility] Stop: 08/06/20 17:59 Last Admin: 08/06/20 16:58 Dose: 250 mls/hr Documented by: Ceftriaxone Sodium 2 gm/ (Sodium Chloride) 100 mls @ 200 mls/hr IV Q24H COUNT INCLUDES THE [facility] Stop: 08/08/20 18:29 Last Admin: 08/08/20 17:36 Dose: 200 mls/hr Documented by: Sodium Chloride (Normal Saline) Confirm Administered Dose 250 mls @ as directed .ROUTE .STK-MED ONE Stop: 11/30/20 20:59 Last Admin: 08/04/20 21:14 Dose: 50 mls/hr Documented by: Potassium Chloride 10 meq/ (Premix) 100 mls @ 100 mls/hr IV Q1H COUNT INCLUDES THE [facility] Stop: 08/05/20 12:59 Last Admin: 08/05/20 12:51 Dose: 100 mls/hr Documented by: Metoprolol Tartrate (Lopressor) 2.5 mg IVPUSH ONETIME ONE Stop: 08/05/20 07:47 Last Admin: 08/05/20 07:56 Dose: 2.5 mg Documented by: Metoprolol Tartrate (Lopressor) 50 mg PO BIDMEALS COUNT INCLUDES THE [facility] Last Admin: 08/06/20 08:24 Dose: 50 mg Documented by: Metoprolol Tartrate (Lopressor) 2.5 mg IVPUSH ONETIME ONE Stop: 08/05/20 08:13 Last Admin: 08/05/20 17:45 Dose: 2.5 mg Documented by: Metoprolol Tartrate (Lopressor) 25 mg PO ONETIME ONE Stop: 08/06/20 09:31 Last Admin: 08/06/20 09:31 Dose: 25 mg Documented by: Potassium Chloride (Klor-Con M20) 40 meq PO ONETIME ONE Stop: 08/06/20 11:01 Last Admin: 08/06/20 11:58 Dose: 40 meq Documented by: - Exam Quality Assessment: DVT Prophylaxis (Eliquis). No: Supplemental Oxygen General: Alert, Oriented, Cooperative, No Acute Distress HEENT: Pupils Equal, Pupils Reactive, Mucous Membr. Moist/[place] Neck: Supple, Trachea Midline. No: Lymphadenopathy Lungs: Normal Respiratory Effort, Decreased Breath Sounds Cardiovascular: Regular Rate, Irregular Rhythm (Intermittent atrial fib), Murmurs (Systolic) GI/Abdominal Exam: Normal Bowel Sounds, Soft, Non-Tender, No Distention (Female) Exam: Deferred Back Exam: Normal Inspection, Full Range of Motion Extremities: Normal Inspection, Normal Range of Motion, Non-Tender, No Pedal Edema, Normal Capillary Refill Peripheral Pulses: 1+: Dorsalis Pedis (L), Dorsalis Pedis (R), 2+: Radial (L), Radial (R) Skin: Warm, Dry, Intact Neurological: No New Focal Deficit Psy/Mental Status: Alert, Normal Affect, Normal Mood Sepsis Event Note - Evaluation Sepsis Screening Result: No Definite Risk - Focused Exam Vital Signs: Vital Signs Temp Pulse Resp BP BP Pulse Ox Pulse Ox 08/11/20 08:55 177/77 H 08/11/20 08:54 81 177/77 H 08/11/20 08:15 97.5 F 18 177/77 H 92 L 08/11/20 02:09 97.3 F 18 150/71 H 93 L 08/11/20 02:04 93 L - Problem List & Annotations (1) Pneumonia due to 2019 novel coronavirus SNOMED Code(s): 920086163790641193 Code(s): U07.1 - COVID-19; J12.89 - OTHER VIRAL PNEUMONIA Status: Acute Priority: High Current Visit: Yes (2) Acute hypoxemic respiratory failure SNOMED Code(s): 152372713 Code(s): J96.01 - ACUTE RESPIRATORY FAILURE WITH HYPOXIA Status: Acute Priority: High Current Visit: Yes (3) HTN (hypertension) SNOMED Code(s): 96212706 Code(s): I10 - ESSENTIAL (PRIMARY) HYPERTENSION Status: Chronic Priority: Low Current Visit: No Qualifiers: Hypertension type: essential hypertension Qualified Code(s): I10 - Essential (primary) hypertension (4) Hyponatremia SNOMED Code(s): 97059048 Code(s): E87.1 - HYPO-OSMOLALITY AND HYPONATREMIA Status: Acute Priority: High Current Visit: Yes (5) Congestive heart failure (CHF) SNOMED Code(s): 03460902 Code(s): I50.9 - HEART FAILURE, UNSPECIFIED Status: Acute Priority: High Current Visit: Yes Qualifiers: Heart failure type: unspecified Heart failure chronicity: unspecified Qualified Code(s): I50.9 - Heart failure, unspecified (6) Essential tremor SNOMED Code(s): 951134165 Code(s): G25.0 - ESSENTIAL TREMOR Status: Chronic Priority: Medium Current Visit: Yes - Problem List Review Problem List Initiated/Reviewed/Updated: Yes - My Orders Last 24 Hours: My Active Orders 08/11/20 21:00 amLODIPine [Norvasc] 10 mg PO BEDTIME - Assessment Assessment:: 08/06/2020 * Patient's heart rate is still not controlled on current dose of metoprolol. Rate at times in the 1teens to 120's * Troponin down to 0.026. No further complaints of chest pain noted. * Labs reveal: WBC 14.78 which is decreased from 15.10, D-dimer 0.66, sodium up to 130, potassium 3.5, BUN 12, creatinine 0.5, GFR greater than 60, C-reactive protein 28.4. * Day 3 of remdesivir and dexamethasone. * Day 3 of Rocephin and Zithromax. * Patient is on room air. 08/07/20 * Heart rate is well controlled into the 60s and 80s * Labs reveal WBC 9.97, sodium 129, BUN 25, creatinine 0.6, GFR greater than 60 * Patient is -220 mL over the course of her last 24 hours with intake and output * Continues on room air * Blood pressures ranging 130s over 107-118. * Day 4 of remdesivir and dexamethasone * Day 4 of Rocephin * Ambulating with PT * Complaining of left knee pain requesting lidocaine patch * Echocardiogram report from 08/05/2020: 1. Left ventricular ejection fraction, by visual estimation, is 60 to 65%. 2. Mild concentric left ventricular hypertrophy. 3. Normal right ventricular systolic function. 4. Mild aortic valve stenosis. 5. Moderate thickening calcification and thickening of mitral leaflets. Probably in part to rheumatic disease with hockey deformity of anterior mitral leaflet and predominantly more leaflet tips thickening. Mild mitral stenosis with MG 5 mmHg heart rate 75 bpm 6. Mild tricuspid valve regurgitation. 7. Mild dilation of the ascending aorta. 8. The right ventricle systolic pressure is moderate to severely elevated at 62.7 mmHg. 9. No regional wall motion abnormalities. 08/08/2020 * Heart rate continues to be well controlled. * White count and C-reactive protein are down. * Blood pressures have improved with the addition of Norvasc at night. * Day 5 of remdesivir, dexamethasone, and Rocephin * Off oxygen * Cough still problematic. * Pain improved except secondary to coughing. August 09, 2020 * Vital signs are stable * Labs: White count 8.2, hemoglobin 10.7, sodium 133, albumin 2.3 * Completed remdesivir and Rocephin * Slept well with Phenergan with codeine 08/10/2020 * Patient continues to improve. * No new labs drawn today. * Patient still plans on being discharged to [facility]. * Back on oral Lasix 20 mg daily * Cough is improving. * Completed remdesivir and Rocephin. * On day 7 of 10 of dexamethasone. * Blood pressures range from 135/75-157/58 08/11/20 * Patient is doing very well. * Continues to have persistent cough: Nonproductive * Day 8 of dexamethasone * Blood pressures range 150/70-177/77 * Labs reveal: WBC 11.25, D-dimer 0.90, sodium 132, C-reactive protein 3.4 - Plan Plan:: 08/04/20 * 85-year-old female with gradual onset weakness, cough, decreased appetite, fever chills and diaphoresis that started about a week ago. Has been exposed to COVID-19 about 2 weeks ago at a . * Presented to the emergency department and was hypoxemic at 86% on room air. * Initial vital signs in the emergency department reveal a temp of 37.3 Celsius, pulse 84, respiratory rate 20, pressure 170/68, pulse ox 91% on 2 L of oxygen per nasal cannula * Labs in the ED revealed WBC 14.19, sodium 126, potassium 4.1, BUN 8, creatinine 0.6, GFR greater than 60, lactic acid 1.4, LDH 221, troponin I 0.019, C-reactive protein 18.7, D-dimer 1.03, ferritin 142, proBNP 2163, she is Covid positive, urinalysis is unremarkable for infection. Sets of blood cultures were also collected in the emergency department. * Portable chest x-ray reveals a mild increase in interstitial lung markings bilaterally. There is a nodule airspace opacity within the right midlung zone. Findings suggest a pneumonic infiltrate. Consider atypical viral etiology. Pleural spaces otherwise unremarkable with no pleural effusion or pneumothorax. Heart size is mildly prominent. 08/05/2020 * New onset atrial fibrillation with RVR overnight. Stabilized with IV metoprolol and oral metoprolol. * Patient did have some chest pain with the chest pain and her troponin increased slightly to 0.06 * Patient's chest pain when I examined was mostly in her abdomen. This did resolve with resolution of her A. fib RVR. * Patient continues to have hyponatremia 129, white count is elevated at 15.1 likely secondary to inflammation, hypokalemia with potassium of 3.2 and worsening of her proBNP at 3894. * Procalcitonin is less than 0.05. This makes it unlikely that her white count is secondary to significant bacterial infection. PLAN: Pneumonia due to 2019 novel coronavirus, Acute hypoxemic respiratory failure * Convalescent plasma 2 units today. I spoke with the patient to provide information about convalescent plasma for herself. I offered her the fax sheet for patients and caregivers for COVID-19 convalescent plasma to read and review. I stated the therapy has been approved by an emergency youth authorization process and has not fully been FDA reviewed or approved. I shared potential risks from the therapy including transmission of blood-borne pathogen such as HIV and hepatitis C, allergic and transfusion related reactions, post transfusion purpura. Additionally theoretical risks including a phenomenon called antibodydependent enhancement of infection such as seen in dengue or attenuation of an immune response that may make patients more susceptible to reinfection. I discussed there are other potential treatment options that are currently not FDA approved to treat COVID-19. Offered opportunity to ask questions and all questions were answered. The patient voiced understanding and agreed to proceed with treatment for herself. * Remdesivir 200 mg IV x1 dose then 100 mg daily x4 more doses. * Dexamethasone 6 mg p.o. daily x10 days * Rocephin 2 g daily x5 days * Zithromax 500 mg IV daily x3 days * Incentive spirometer and flutter valve every hour while awake 08/06/20 New onset A. fib with RVR * Rate is still not controlled on current dose of metoprolol. Increase metoprolol to 75 mg by mouth twice daily. * Anticoagulate secondary to A. fib with Eliquis HTN (hypertension) * Vital signs every 4 hours * Readjust antihypertensives based on blood pressure and adjustment of metoprolol Hyponatremia * Restart Lasix in the morning 20 mg daily as needed * 1500 mL fluid restriction every 24 hours * Monitor intake and output every 8 hours Congestive heart failure (CHF) * Furosemide 40mg IV x 1 dose today. 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 Discontinue Adkins catheter, but maintain strict VIJAYA and daily weight Patient will be here greater than 96 hours due to the standard 5-day treatment course for Covid 08/07/20 New onset A. fib with RVR * Rate is well controlled on metoprolol * Anticoagulate secondary to A. fib with Eliquis HTN (hypertension) * Vital signs every 4 hours * Readjust antihypertensives based on blood pressure and adjustment of metoprolol * Start chlorthalidone 12.5 mg daily Hyponatremia * Restart Lasix in the morning 20 mg daily as needed * 1500 mL fluid restriction every 24 hours * Monitor intake and output every 8 hours * Sodium 129 today. Upon further investigation and patient's previous hospital visits, this is a chronic issue. Will have patient's primary physician follow-up regarding this as patient is asymptomatic. Congestive heart failure (CHF) * Follow-up chest x-rays as needed * Lasix 20 mg daily as needed 08/08/2020 New onset A. fib with RVRstable * Rate is well controlled on metoprolol * Anticoagulate secondary to A. fib with Eliquis HTN (hypertension) * Vital signs every 4 hours * Readjust antihypertensives based on blood pressure and adjustment of metoprol ol * Chlorthalidone was held secondary to hyponatremia * Norvasc restarted at a lower dose of 5 mg daily Hyponatremia * Lasix in the morning 20 mg daily as needed * 1500 mL fluid restriction every 24 hours * Monitor intake and output every 8 hours * Sodium 131 today. Upon further investigation and patient's previous hospital visits, this is a chronic issue. Will have patient's primary physician follo w-up regarding this as patient is asymptomatic. Congestive heart failure (CHF) * Follow-up chest x-rays as needed * Lasix 20 mg daily as needed 08/09/2020 New onset A. fib with RVRstable * Rate is well controlled on metoprolol * Anticoagulate secondary to A. fib with Eliquis HTN (hypertension) * Vital signs every 4 hours * Readjust antihypertensives based on blood pressure and adjustment of metoprolol * Chlorthalidone was held secondary to hyponatremia * Norvasc restarted at a lower dose of 5 mg at bedtime Hyponatremia * Lasix in the morning 20 mg daily as needed * 1500 mL fluid restriction every 24 hours * Monitor intake and output every 8 hours * Sodium 133improvedtoday. Upon further investigation and patient's previous hospital visits, this is a chronic issue. Will have patient's primary physician follow-up regarding this as patient is asymptomatic. Congestive heart failure (CHF) * Follow-up chest x-rays as needed * Lasix 20 mg daily as needed 08/10/2020 New onset A. fib with RVRstable * Rate is well controlled on metoprolol * Anticoagulate secondary to A. fib with Eliquis HTN (hypertension) * Vital signs every 4 hours * Readjust antihypertensives based on blood pressure and adjustment of metoprolol * Chlorthalidone was held secondary to hyponatremia * Norvasc restarted at a lower dose of 5 mg at bedtime * Blood pressure is adequately treated Hyponatremia * Lasix 20 mg daily as needed * Increase fluid restriction to 2000 mL * Monitor intake and output every 8 hours * Recheck labs in the morning. 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 upon discharge. Respiratory therapy to titrate oxygen to keep O2 saturations between 88 and 94% Patient will be here greater than 96 hours due to the standard 5-day treatment course for Covid 08/11/2020 New onset A. fib with RVRstable * Rate is well controlled on metoprolol * Anticoagulate secondary to A. fib with Eliquis HTN (hypertension) * Vital signs every 4 hours * Readjust antihypertensives based on blood pressure and adjustment of metoprolol * Norvasc raised to 10 mg daily. This is her home dose. * Blood pressure is adequately treated Hyponatremia * Lasix 20 mg daily as needed * Increase fluid restriction to 2000 mL * Monitor intake and output every 8 hours Congestive heart failure (CHF) * Follow-up chest x-rays as needed * Lasix 20 mg daily as needed * Continue metoprolol Eliquis for stroke and DVT prophylaxis Patient is a DNR/DNI PT OT to eval and treat [employer] supervisor and case management for discharge planning patient has agreed to go to [facility] upon discharge. Awaiting acceptance to [facility]. Respiratory therapy to titrate oxygen to keep O2 saturations between 88 and 94% Patient will be here greater than 96 hours due to the standard 5-day treatment course for Covid
[2020-08-11] MEDS: Codeine/Promethazine 10-6.25 MG/5 ML Syrup 5 ML UD Cup PO PRN ×3 (13:16→23:38)
[2020-08-11] MEDS: Benzocaine/Cetylpyridinium/Menthol Lozenge MUCMEM PRN (14:53)
[2020-08-11] MEDS: Dexamethasone 4 MG Tab PO SCH (17:39)
[2020-08-11] MEDS: LOVASTATIN 80 MG PO SCH (20:08)
[2020-08-11] MEDS: Gabapentin 300 MG Cap PO SCH (20:08)
[2020-08-11] MEDS: amLODIPine 10 MG Tab PO SCH (20:15)
[2020-08-12] MEDS: Codeine/Promethazine 10-6.25 MG/5 ML Syrup 5 ML UD Cup PO PRN ×2 (05:28→20:19)
[2020-08-12] MEDS: Benzocaine/Cetylpyridinium/Menthol Lozenge MUCMEM PRN (08:43)
[2020-08-12] MEDS: Ezetimibe 10 MG Tab PO SCH (08:43)
[2020-08-12] MEDS: Metoprolol Tartrate 25 MG Tab PO SCH ×2 (08:43→20:30)
[2020-08-12] MEDS: Zinc Sulfate 220 MG Cap PO SCH (08:43)
[2020-08-12] MEDS: guaiFENesin 600 MG Tab.ER PO SCH ×3 (08:43→20:16)
[2020-08-12] MEDS: Codeine/guaiFENesin 10-100 MG/5 ML Syrup 5 ML Cup PO PRN (08:43)
[2020-08-12] MEDS: ALPRAZolam 0.25 MG Tab PO PRN ×2 (08:43→22:45)
[2020-08-12] MEDS: Aspirin 81 MG Tab.EC PO SCH (08:43)
[2020-08-12] MEDS: Cholecalciferol (Vitamin D3) 25 MCG Tab PO SCH (08:44)
[2020-08-12] MEDS: Lidocaine 4% 1 each Patch TOP SCH (08:44)
[2020-08-12] MEDS: Spironolactone 25 MG Tab PO SCH (08:44)
[2020-08-12] MEDS: Losartan 25 MG Tab PO SCH ×2 (08:44→20:30)
[2020-08-12] MEDS: Apixaban 5 MG Tab PO SCH ×2 (08:44→20:15)
[2020-08-12] MEDS: Fluticasone Propionate Nasal Spray 16 GM Bottle NAS SCH ×2 (08:44→20:31)
[2020-08-12] MEDS: Primidone 50 MG Tab PO SCH ×2 (09:09→20:28)
--- NOTE | 2020-08-12 09:44 | PCM.PN ---
- General Info Date of Service: 08/12/20 Admission Dx/Problem (Free Text): Admission Diagnosis/Problem Admission Diagnosis/Problem Weakness Subjective Update: No overnight or acute issues. She feels a little weaker than yesterday. She is now on RA. She is day 8th on her dexa regimen. Functional Status: Reports: Pain Controlled, Tolerating Diet, Ambulating, Incentive Spirometry - Review of Systems General: Denies: Fever, Chills HEENT: Denies: Headaches Pulmonary: Denies: Shortness of Breath Cardiovascular: Denies: Chest Pain Gastrointestinal: Denies: Abdominal Pain, Nausea, Vomiting Genitourinary: Denies: Retention Musculoskeletal: Reports: Other (generalized weakness). Denies: Joint Pain Skin: Denies: Rash Neurological: Denies: Confusion Psychiatric: Denies: Confusion, Anxiety - Patient Data Vitals - Most Recent: Last Vital Signs Temp 36.4 C 08/12/20 03:33 Pulse 59 L 08/12/20 08:43 Resp 19 08/12/20 03:33 BP 155/61 H 08/12/20 08:44 Pulse Ox 94 L 08/12/20 03:33 Weight - Most Recent: 60.651 kg I&O - Last 24 Hours: Intake & Output 08/11/20 08/12/20 08/12/20 22:59 06:59 14:59 Intake Total 600 120 Balance 600 120 Lab Results Last 24 Hours: Laboratory Results - last 24 hr 08/12/20 08/12/20 Range/Units 09:10 09:10 WBC 14.64 H (3.98-10.04) K/mm3 RBC 3.79 L (3.98-5.22) M/mm3 Hgb 11.4 (11.2-15.7) gm/dl Hct 35.9 (34.1-44.9) % MCV 94.7 D (79.4-94.8) fl MCH 30.1 (25.6-32.2) pg MCHC 31.8 L (32.2-35.5) g/dl RDW Std Deviation 48.9 H (36.4-46.3) fL Plt Count 420 H (182-369) K/mm3 MPV 9.4 (9.4-12.3) fl Neut % (Auto) 40.0 (34.0-71.1) % Lymph % (Auto) 25.7 (19.3-51.7) % Grayson % (Auto) 32.0 H (4.7-12.5) % Eos % (Auto) 1.0 (0.7-5.8) Baso % (Auto) 0.1 (0.1-1.2) % Neut # (Auto) 5.86 (1.56-6.13) K/mm3 Lymph # (Auto) 3.76 H (1.18-3.74) K/mm3 Grayson # (Auto) 4.68 H (0.24-0.36) K/mm3 Eos # (Auto) 0.15 (0.04-0.36) K/mm3 Baso # (Auto) 0.02 (0.01-0.08) K/mm3 Sodium 132 L (136-145) mEq/L Potassium 4.2 (3.5-5.1) mEq/L Chloride 96 L (98-107) mEq/L Carbon Dioxide 34 H (21-32) mEq/L Anion Gap 6.2 (5-15) BUN 17 (7-18) mg/dL Creatinine 0.6 (0.55-1.02) mg/dL Est Cr Clr Drug Dosing 48.34 mL/min Estimated GFR (MDRD) > 60 (>60) mL/min BUN/Creatinine Ratio 28.3 H (14-18) Glucose 101 (83-115) mg/dL Calcium 8.9 (8.5-10.1) mg/dL Magnesium 2.0 (1.8-2.4) mg/dl Darwin Results Last 24 Hours: Microbiology 08/04/20 11:23 Aerobic Blood Culture - Final Blood - Venous - Lab Draw NO GROWTH AFTER 7 DAYS Anaerobic Blood Culture - Final NO GROWTH AFTER 7 DAYS 08/04/20 11:02 Aerobic Blood Culture - Final Blood - Venous NO GROWTH AFTER 7 DAYS Anaerobic Blood Culture - Final NO GROWTH AFTER 7 DAYS Med Orders - Current: Current Medications Acetaminophen (Tylenol) 650 mg PO Q4H PRN PRN Reason: Pain (Mild 1-3)/fever Last Admin: 08/08/20 07:38 Dose: 650 mg Documented by: Albuterol (Proventil Neb Soln) 2.5 mg NEB Q2H PRN PRN Reason: Shortness Of Breath/wheezing Albuterol (Proventil Hfa) 2 gm INH Q4H PRN PRN Reason: SOB/Cough Last Admin: 08/11/20 02:02 Dose: 2 puff Documented by: Alprazolam (Xanax) 0.25 mg PO Q12H PRN PRN Reason: Anxiety Last Admin: 08/12/20 08:43 Dose: 0.25 mg Documented by: Amlodipine Besylate (Norvasc) 10 mg PO BEDTIME [facility] Last Admin: 08/11/20 20:15 Dose: 10 mg Documented by: Apixaban (Eliquis) 5 mg PO BID [facility] Last Admin: 08/12/20 08:44 Dose: 5 mg Documented by: Aspirin (Halfprin) 81 mg PO DAILY [facility] Last Admin: 08/12/20 08:43 Dose: 81 mg Documented by: Benzocaine/Menthol (Cepacol Sore Throat) 1 lozenge MUCMEM ASDIRECTED PRN PRN Reason: Cough Last Admin: 08/12/20 08:43 Dose: 1 lozenge Documented by: Benzonatate (Tessalon Perles) 200 mg PO QID PRN PRN Reason: Cough Last Admin: 08/11/20 08:55 Dose: 200 mg Documented by: Calcium Carbonate/Glycine (Tums) 1,000 mg PO Q2H PRN PRN Reason: Indigestion Last Admin: 08/05/20 14:08 Dose: 1,000 mg Documented by: Cholecalciferol (Vitamin D3) 25 mcg PO DAILY [facility] Last Admin: 08/12/20 08:44 Dose: 25 mcg Documented by: Dexamethasone (Dexamethasone) 6 mg PO Q24H [facility] Stop: 08/13/20 16:01 Last Admin: 08/11/20 17:39 Dose: 6 mg Documented by: Docusate Sodium (Colace) 100 mg PO BID PRN PRN Reason: Constipation Ezetimibe (Zetia) 10 mg PO DAILY [facility] Last Admin: 08/12/20 08:43 Dose: 10 mg Documented by: Fluticasone Propionate (Flonase) 0 gm LINDA BID [facility] Last Admin: 08/12/20 08:44 Dose: 1 spray Documented by: Gabapentin (Neurontin) 300 mg PO BEDTIME [facility] Last Admin: 08/11/20 20:08 Dose: 300 mg Documented by: Guaifenesin (Mucinex) 600 mg PO TID [facility] Last Admin: 08/12/20 08:43 Dose: 600 mg Documented by: Guaifenesin/Codeine Phosphate (Robitussin Ac) 5 ml PO Q4H PRN PRN Reason: Cough Last Admin: 08/12/20 08:43 Dose: 5 ml Documented by: Diltiazem HCl 100 mg/ Sodium (Chloride) 100 mls @ 5 mls/hr IV TITRATE [facility]; Protocol Last Titration: 08/05/20 08:00 Dose: 0 mg/hr, 0 mls/hr Documented by: Lidocaine (Aspercreme 4%) 1 each TOP DAILY [facility] Last Admin: 08/12/20 08:44 Dose: 1 each Documented by: Losartan Potassium (Cozaar) 50 mg PO BID [facility] Last Admin: 08/12/20 08:44 Dose: 50 mg Documented by: Magnesium Hydroxide (Milk Of Magnesia) 30 ml PO Q4H PRN PRN Reason: Constipation Metoprolol Tartrate (Lopressor) 75 mg PO BID [facility] Last Admin: 08/12/20 08:43 Dose: 75 mg Documented by: Miscellaneous Information (Remove Patch) 1 ea TRDERM BEDTIME [facility] Last Admin: 08/11/20 20:09 Dose: 1 ea Documented by: Nitroglycerin (Nitrostat) 0.4 mg SL ASDIRECTED PRN PRN Reason: Chest Pain Lovastatin 80 Mg (Ptom) 80 mg PO BEDTIME [facility] Last Admin: 08/11/20 20:08 Dose: Not Given Documented by: Ondansetron HCl (Zofran) 4 mg IV Q4H PRN PRN Reason: Nausea/Vomiting Primidone (Mysoline) 300 mg PO BID [facility] Last Admin: 08/12/20 09:09 Dose: 300 mg Documented by: Promethazine HCl/Codeine (Phenergan With Codeine) 5 ml PO Q4HR PRN PRN Reason: Cough Last Admin: 08/12/20 05:28 Dose: 5 ml Documented by: Sodium Chloride (Saline Flush) 10 ml FLUSH ASDIRECTED PRN PRN Reason: Keep Vein Open Spironolactone (Aldactone) 25 mg PO DAILY [facility] Last Admin: 08/12/20 08:44 Dose: 25 mg Documented by: Zinc Sulfate (Zincate) 220 mg PO DAILY [facility] Last Admin: 08/12/20 08:43 Dose: 220 mg Documented by: Discontinued Medications Acetaminophen (Tylenol) 975 mg PO ONETIME ONE Stop: 08/04/20 10:01 Last Admin: 08/04/20 10:52 Dose: 975 mg Documented by: Al Hydroxide/Mg Hydroxide (Mag-Al Plus) 30 ml PO Q4H PRN PRN Reason: Heartburn Stop: 08/07/20 04:13 Last Admin: 08/05/20 04:23 Dose: 30 ml Documented by: Amlodipine Besylate (Norvasc) 5 mg PO BEDTIME [facility] Last Admin: 08/08/20 21:01 Dose: 5 mg Documented by: Amlodipine Besylate (Norvasc) 5 mg PO ONETIME ONE Stop: 08/09/20 17:13 Last Admin: 08/10/20 08:45 Dose: Not Given Documented by: Amlodipine Besylate (Norvasc) 10 mg PO BEDTIME [facility] Amlodipine Besylate (Norvasc) 5 mg PO BEDTIME [facility] Last Admin: 08/10/20 20:18 Dose: 5 mg Documented by: Chlorthalidone (Chlorthalidone) 12.5 mg PO DAILY [facility] Last Admin: 08/07/20 16:41 Dose: Not Given Documented by: Diltiazem HCl (Cardizem) 10 mg IVPUSH ONETIME ONE Stop: 08/05/20 03:24 Last Admin: 08/05/20 03:34 Dose: 10 mg Documented by: Diltiazem HCl (Cardizem) 10 mg IVPUSH ONETIME ONE Stop: 08/05/20 04:05 Last Admin: 08/05/20 04:11 Dose: 10 mg Documented by: Enoxaparin Sodium (Lovenox) 30 mg SUBCUT Q12H [facility] Last Admin: 08/04/20 16:56 Dose: 30 mg Documented by: Enoxaparin Sodium (Lovenox) 30 mg SUBCUT Q12H [facility] Last Admin: 08/05/20 17:33 Dose: 30 mg Documented by: Famotidine (Pepcid) 20 mg IVPUSH ONETIME ONE Stop: 08/05/20 09:01 Last Admin: 08/05/20 09:43 Dose: Not Given Documented by: Furosemide (Lasix) 40 mg IVPUSH NOW [facility] Stop: 08/04/20 17:00 Furosemide (Lasix) 20 mg IVPUSH ONETIME ONE Stop: 08/04/20 22:01 Last Admin: 08/04/20 22:43 Dose: 20 mg Documented by: Furosemide (Lasix) 40 mg IVPUSH NOW ONE Stop: 08/06/20 14:16 Last Admin: 08/06/20 14:29 Dose: 40 mg Documented by: Dextrose/Sodium Chloride (Dextrose 5%-Normal Saline) 1,000 mls @ 150 mls/hr IV ASDIRECTED [facility] Last Admin: 08/04/20 10:51 Dose: 150 mls/hr Documented by: Remdesivir 200 mg/ Sodium (Chloride) 250 mls @ 250 mls/hr IV ONETIME ONE Stop: 08/04/20 14:33 Last Admin: 08/04/20 16:54 Dose: 250 mls/hr Documented by: Remdesivir 100 mg/ Sodium (Chloride) 100 mls @ 100 mls/hr IV Q24H [facility] Stop: 08/08/20 16:59 Last Admin: 08/08/20 15:31 Dose: 100 mls/hr Documented by: Azithromycin 500 mg/ Sodium (Chloride) 250 mls @ 250 mls/hr IV Q24H [facility] Stop: 08/06/20 17:59 Last Admin: 08/06/20 16:58 Dose: 250 mls/hr Documented by: Ceftriaxone Sodium 2 gm/ (Sodium Chloride) 100 mls @ 200 mls/hr IV Q24H [facility] Stop: 08/08/20 18:29 Last Admin: 08/08/20 17:36 Dose: 200 mls/hr Documented by: Sodium Chloride (Normal Saline) Confirm Administered Dose 250 mls @ as directed .ROUTE .STK-MED ONE Stop: 08/04/20 20:59 Last Admin: 08/04/20 21:14 Dose: 50 mls/hr Documented by: Potassium Chloride 10 meq/ (Premix) 100 mls @ 100 mls/hr IV Q1H [facility] Stop: 08/05/20 12:59 Last Admin: 08/05/20 12:51 Dose: 100 mls/hr Documented by: Metoprolol Tartrate (Lopressor) 2.5 mg IVPUSH ONETIME ONE Stop: 08/05/20 07:47 Last Admin: 08/05/20 07:56 Dose: 2.5 mg Documented by: Metoprolol Tartrate (Lopressor) 50 mg PO BIDMEALS [facility] Last Admin: 08/06/20 08:24 Dose: 50 mg Documented by: Metoprolol Tartrate (Lopressor) 2.5 mg IVPUSH ONETIME ONE Stop: 08/05/20 08:13 Last Admin: 08/05/20 17:45 Dose: 2.5 mg Documented by: Metoprolol Tartrate (Lopressor) 75 mg PO BIDMEALS [facility] Last Admin: 08/11/20 17:36 Dose: 75 mg Documented by: Metoprolol Tartrate (Lopressor) 25 mg PO ONETIME ONE Stop: 08/06/20 09:31 Last Admin: 08/06/20 09:31 Dose: 25 mg Documented by: Potassium Chloride (Klor-Con M20) 40 meq PO ONETIME ONE Stop: 08/06/20 11:01 Last Admin: 08/06/20 11:58 Dose: 40 meq Documented by: - Exam Quality Assessment: No: Supplemental Oxygen General: Alert, Oriented, Cooperative HEENT: Pupils Equal, Pupils Reactive, EOMI, Mucous Membr. Moist/Winfred Neck: Supple Lungs: Clear to Auscultation, Normal Respiratory Effort Cardiovascular: Regular Rate, Regular Rhythm GI/Abdominal Exam: Normal Bowel Sounds, Soft, Non-Tender, No Organomegaly (Female) Exam: Deferred Back Exam: Normal Inspection, Decreased Range of Motion Extremities: Normal Inspection, Normal Range of Motion, Non-Tender, No Pedal Edema, Normal Capillary Refill Peripheral Pulses: 2+: Dorsalis Pedis (L), Dorsalis Pedis (R) Skin: Warm, Dry, Intact Neurological: No New Focal Deficit Psy/Mental Status: Alert, Normal Affect, Normal Mood Sepsis Event Note - Evaluation Sepsis Screening Result: No Definite Risk - Focused Exam Vital Signs: Vital Signs Temp Pulse Resp BP BP Pulse Ox 08/12/20 08:44 155/61 H 08/12/20 08:43 59 L 155/61 H 08/12/20 03:33 36.4 C 19 139/65 94 L - Problem List Review Problem List Initiated/Reviewed/Updated: Yes - My Orders Last 24 Hours: My Active Orders 08/12/20 09:10 CBC WITH AUTO DIFF [HEME] Routine - Assessment Assessment:: Assessment: Acute: Covid-19 Infection Viral Pneumonitis/Atypical Pneumonia -Completed 2 units of convalescent plasma -5 day course of Veklury -Rocephin and Azithromycin -On day 8th of Dexa -Continue IS and FV as directed -She is now on RA New onset A. fib with RVRresolved -Rate is well controlled on metoprolol tartrate 75 mg po BID -Anticoagulate secondary to A. fib with Eliquis -HR now in the 60s-80s; 59 at 0843 this AM HTN (hypertension) -Vital signs every 4 hours -BP Meds: Metoprolol tartrate 75 mg po BID, Aldactone 25 mg po daily, Losartan 50 mg po BID, and PRN Lasix 20 mg po daily -Resume Norvasc raised to 10 mg daily -Blood pressure is adequately treated Hypo-osmolar hyponatremia, continues to improve -She is not symptomatic -Na now at 132 -On Lasix 20 mg daily as needed -Fluid restriction to 1500 ml daily -Continue to monitor intake and output every 8 hours Congestive heart failure (CHF) with Preserved EF -Elevated proBNP of 2163 -Has likely pulmonary HTN -2D echo shows normal EF 60-65%. No RWMA. Moderate calcification and thickening of mitral leaflets. Moderate-Severe RVSP at 62.7 mmHg -Lasix and Aldactone -1.5 L for fluid restriction and AHA diet -Follow-up chest x-rays as needed Leukocytosis, POA -Likely from underlying infection but also on steroids -WBC of 14.64 -Will monitor Mild Hypochloremia with Cl, 93, POA Hyperglycemia, POA -Likely due to steroid and now on steroids -Carries no hx/o diabetes or glucose intolerance -We will monitor Elevated CRP level of 28.4, POA -Likely 2/2 underlying infection Hypoalbuminemia, POA -Albumin of 2.4 -Vp Clinical Research following Chronic: Impaired Vision and Hearing HTN HLD Hx/o MO CAD S/p stents placement Asthma HIWOT Chronic Constipation Recurrent UTI OA Hx/o esophageal cancer Hx/o Splenectomy Anxiety ET - Plan Plan:: 08/04/20 * 85-year-old female with gradual onset weakness, cough, decreased appetite, fever chills and diaphoresis that started about a week ago. Has been exposed to COVID-19 about 2 weeks ago at a . * Presented to the emergency department and was hypoxemic at 86% on room air. * Initial vital signs in the emergency department reveal a temp of 37.3 Celsius, pulse 84, respiratory rate 20, pressure 170/68, pulse ox 91% on 2 L of oxygen per nasal cannula * Labs in the ED revealed WBC 14.19, sodium 126, potassium 4.1, BUN 8, creatinine 0.6, GFR greater than 60, lactic acid 1.4, LDH 221, troponin I 0.019, C-reactive protein 18.7, D-dimer 1.03, ferritin 142, proBNP 2163, she is Covid positive, urinalysis is unremarkable for infection. Sets of blood cultures were also collected in the emergency department. * Portable chest x-ray reveals a mild increase in interstitial lung markings bilaterally. There is a nodule airspace opacity within the right midlung zone. Findings suggest a pneumonic infiltrate. Consider atypical viral etiology. Pleural spaces otherwise unremarkable with no pleural effusion or pneumothorax. Heart size is mildly prominent. 08/05/2020 * New onset atrial fibrillation with RVR overnight. Stabilized with IV metoprolol and oral metoprolol. * Patient did have some chest pain with the chest pain and her troponin increased slightly to 0.06 * Patient's chest pain when I examined was mostly in her abdomen. This did resolve with resolution of her A. fib RVR. * Patient continues to have hyponatremia 129, white count is elevated at 15.1 likely secondary to inflammation, hypokalemia with potassium of 3.2 and worsening of her proBNP at 3894. * Procalcitonin is less than 0.05. This makes it unlikely that her white count is secondary to significant bacterial infection. PLAN: Pneumonia due to 2019 novel coronavirus, Acute hypoxemic respiratory failure * Convalescent plasma 2 units today. I spoke with the patient to provide information about convalescent plasma for herself. I offered her the fax sheet for patients and caregivers for COVID-19 convalescent plasma to read and review. I stated the therapy has been approved by an emergency youth authorization process and has not fully been FDA reviewed or approved. I shared potential risks from the therapy including transmission of blood-borne pathogen such as HIV and hepatitis C, allergic and transfusion related reactions, post transfusion purpura. Additionally theoretical risks including a phenomenon called antibodydependent enhancement of infection such as seen in dengue or attenuation of an immune response that may make patients more susceptible to reinfection. I discussed there are other potential treatment options that are currently not FDA approved to treat COVID-19. Offered opportunity to ask questions and all questions were answered. The patient voiced understanding and agreed to proceed with treatment for herself. * Remdesivir 200 mg IV x1 dose then 100 mg daily x4 more doses. * Dexamethasone 6 mg p.o. daily x10 days * Rocephin 2 g daily x5 days * Zithromax 500 mg IV daily x3 days * Incentive spirometer and flutter valve every hour while awake 08/06/20 New onset A. fib with RVR * Rate is still not controlled on current dose of metoprolol. Increase metoprolol to 75 mg by mouth twice daily. * Anticoagulate secondary to A. fib with Eliquis HTN (hypertension) * Vital signs every 4 hours * Readjust antihypertensives based on blood pressure and adjustment of metoprolol Hyponatremia * Restart Lasix in the morning 20 mg daily as needed * 1500 mL fluid restriction every 24 hours * Monitor intake and output every 8 hours Congestive heart failure (CHF) * Furosemide 40mg IV x 1 dose today. * Follow-up chest x-rays as needed * Echocardiogram pending Ricciis for stroke and DVT prophylaxis Patient is a DNR/DNI PT OT to eval and treat Dietitian consult regarding patient's caloric needs coordinator of health services and case management for discharge planning Respiratory therapy to titrate oxygen to keep O2 saturations between 88 and 94% Change patient to MedSurg status with telemetry and continuous pulse oximetry. Discontinue Adkins catheter, but maintain strict VIJAYA and daily weight Patient will be here greater than 96 hours due to the standard 5-day treatment course for Covid 08/07/20 New onset A. fib with RVR * Rate is well controlled on metoprolol * Anticoagulate secondary to A. fib with Eliquis HTN (hypertension) * Vital signs every 4 hours * Readjust antihypertensives based on blood pressure and adjustment of me toprolol * Start chlorthalidone 12.5 mg daily Hyponatremia * Restart Lasix in the morning 20 mg daily as needed * 1500 mL fluid restriction every 24 hours * Monitor intake and output every 8 hours * Sodium 129 today. Upon further investigation and patient's previous hospital visits, this is a chronic issue. Will have patient's primary physician follow-up regarding this as patient is asymptomatic. Congestive heart failure (CHF) * Follow-up chest x-rays as needed * Lasix 20 mg daily as needed 08/08/2020 New onset A. fib with RVRstable * Rate is well controlled on metoprolol * Anticoagulate secondary to A. fib with Eliquis HTN (hypertension) * Vital signs every 4 hours * Readjust antihypertensives based on blood pressure and adjustment of metoprolol * Chlorthalidone was held secondary to hyponatremia * Norvasc restarted at a lower dose of 5 mg daily Hyponatremia * Lasix in the morning 20 mg daily as needed * 1500 mL fluid restriction every 24 hours * Monitor intake and output every 8 hours * Sodium 131 today. Upon further investigation and patient's previous hospital visits, this is a chronic issue. Will have patient's primary physician follow-up regarding this as patient is asymptomatic. Congestive heart failure (CHF) * Follow-up chest x-rays as needed * Lasix 20 mg daily as needed 08/09/2020 New onset A. fib with RVRstable * Rate is well controlled on metoprolol * Anticoagulate secondary to A. fib with Eliquis HTN (hypertension) * Vital signs every 4 hours * Readjust antihypertensives based on blood pressure and adjustment of metoprolol * Chlorthalidone was held secondary to hyponatremia * Norvasc restarted at a lower dose of 5 mg at bedtime Hyponatremia * Lasix in the morning 20 mg daily as needed * 1500 mL fluid restriction every 24 hours * Monitor intake and output every 8 hours * Sodium 133improvedtoday. Upon further investigation and patient's previous hospital visits, this is a chronic issue. Will have patient's primary [facility] sician follow-up regarding this as patient is asymptomatic. Congestive heart failure (CHF) * Follow-up chest x-rays as needed * Lasix 20 mg daily as needed 08/10/2020 New onset A. fib with RVRstable * Rate is well controlled on metoprolol * Anticoagulate secondary to A. fib with Eliquis HTN (hypertension) * Vital signs every 4 hours * Readjust antihypertensives based on blood pressure and adjustment of metoprolol * Chlorthalidone was held secondary to hyponatremia * Norvasc restarted at a lower dose of 5 mg at bedtime * Blood pressure is adequately treated Hyponatremia * Lasix 20 mg daily as needed * Increase fluid restriction to 2000 mL * Monitor intake and output every 8 hours * Recheck labs in the morning. Congestive heart failure (CHF) * Follow-up chest x-rays as needed * Lasix 20 mg daily as needed * Continue metoprolol Eliquis for stroke and DVT prophylaxis Patient is a DNR/DNI PT OT to eval and treat coordinator of health services and case management for discharge planning patient has agreed to go to [facility] upon discharge. Respiratory therapy to titrate oxygen to keep O2 saturations between 88 and 94% Patient will be here greater than 96 hours due to the standard 5-day treatment course for Covid 08/11/2020 New onset A. fib with RVRstable * Rate is well controlled on metoprolol * Anticoagulate secondary to A. fib with Eliquis HTN (hypertension) * Vital signs every 4 hours * Readjust antihypertensives based on blood pressure and adjustment of metoprolol * Norvasc raised to 10 mg daily. This is her home dose. * Blood pressure is adequately treated Hyponatremia * Lasix 20 mg daily as needed * Increase fluid restriction to 2000 mL * Monitor intake and output every 8 hours Congestive heart failure (CHF) * Follow-up chest x-rays as needed * Lasix 20 mg daily as needed * Continue metoprolol Eliquis for stroke and DVT prophylaxis Patient is a DNR/DNI PT OT to eval and treat coordinator of health services and case management for discharge planning patient has agreed to go to [facility] upon discharge. Awaiting acceptance to custodial. Respiratory therapy to titrate oxygen to keep O2 saturations between 88 and 94% Patient will be here greater than 96 hours due to the standard 5-day treatment course for Covid 08/12/2020 Continue steroid therapy Routine AM Labs Encourage to ambulate inside her room as much as she can IS and FV as directed Fluid restriction to 1500 ml daily Chest x-ray in AM Vp Clinical Research following PT/OT to assess and treat She is being evaluated by Eliceo Love'robert [place] LOS> 96hrs and pending placement due to new rules/protocol for covid-patient custodial placement
[2020-08-12] MEDS: Calcium Carbonate 500 MG Tab.Chew PO PRN (10:47)
[2020-08-12] MEDS ORDERED: Furosemide 20 MG Tab PO PRN (14:17)
[2020-08-12] MEDS: Dexamethasone 4 MG Tab PO SCH (15:32)
[2020-08-12] MEDS: Docusate Sodium 100 MG Cap PO PRN (20:15)
[2020-08-12] MEDS: Gabapentin 300 MG Cap PO SCH (20:16)
[2020-08-12] MEDS: LOVASTATIN 80 MG PO SCH (20:29)
[2020-08-12] MEDS: amLODIPine 10 MG Tab PO SCH (20:30)
[2020-08-12] MEDS: Magnesium Hydroxide 400 MG/5 ML Susp 30 ML Cup PO PRN (20:52)
[2020-08-13] MEDS: Codeine/Promethazine 10-6.25 MG/5 ML Syrup 5 ML UD Cup PO PRN ×2 (02:55→21:13)
--- NOTE | 2020-08-13 07:38 | PCM.PN ---
- General Info Date of Service: 08/13/20 Admission Dx/Problem (Free Text): Admission Diagnosis/Problem Admission Diagnosis/Problem Weakness Subjective Update: No overnight issues. She feels better this morning. She now reports weakness on her left knee specially with ambulation and a lingering dry cough. No complaints of chest pain, shortness of air or dyspnea. She is eating and drinking fine. No issues. She remains on RA with adequate O2 saturation. Functional Status: Reports: Pain Controlled - Review of Systems General: Reports: Weakness (on left knee). Denies: Fever, Chills HEENT: Reports: No Symptoms, Headaches Pulmonary: Reports: Cough. Denies: Shortness of Breath, Sputum, Hemoptysis, Wheezing Cardiovascular: Denies: Chest Pain, Dyspnea on Exertion Gastrointestinal: Reports: Constipation. Denies: Abdominal Pain, Diarrhea, Nausea, Vomiting Genitourinary: Denies: Frequency Musculoskeletal: Denies: Foot Pain Skin: Denies: Rash Neurological: Denies: Confusion, Dizziness, Difficulty Walking Psychiatric: Denies: Depression, Anxiety - Patient Data Vitals - Most Recent: Last Vital Signs Temp 36.8 C 08/12/20 22:00 Pulse 70 08/12/20 20:30 Resp 16 08/13/20 04:00 BP 134/82 08/12/20 22:00 Pulse Ox 94 L 08/13/20 04:00 Weight - Most Recent: 61.008 kg I&O - Last 24 Hours: Intake & Output 08/12/20 08/13/20 08/13/20 22:59 06:59 14:59 Intake Total 300 300 Balance 300 300 Lab Results Last 24 Hours: Laboratory Results - last 24 hr 08/12/20 08/12/20 08/13/20 Range/Units 09:10 09:10 05:00 WBC 14.64 H 13.32 H (3.98-10.04) K/mm3 RBC 3.79 L 3.08 L (3.98-5.22) M/mm3 Hgb 11.4 10.4 L (11.2-15.7) gm/dl Hct 35.9 30.4 L (34.1-44.9) % MCV 94.7 D 98.7 H D (79.4-94.8) fl MCH 30.1 33.8 H (25.6-32.2) pg MCHC 31.8 L 34.2 (32.2-35.5) g/dl RDW Std Deviation 48.9 H 48.5 H (36.4-46.3) fL Plt Count 420 H 398 H (182-369) K/mm3 MPV 9.4 10.4 (9.4-12.3) fl Neut % (Auto) 40.0 45.4 (34.0-71.1) % Lymph % (Auto) 25.7 21.4 (19.3-51.7) % [place] % (Auto) 32.0 H 31.6 H (4.7-12.5) % Eos % (Auto) 1.0 0.6 L (0.7-5.8) Baso % (Auto) 0.1 0.2 (0.1-1.2) % Neut # (Auto) 5.86 6.05 (1.56-6.13) K/mm3 Lymph # (Auto) 3.76 H 2.85 (1.18-3.74) K/mm3 [place] # (Auto) 4.68 H 4.21 H (0.24-0.36) K/mm3 Eos # (Auto) 0.15 0.08 (0.04-0.36) K/mm3 Baso # (Auto) 0.02 0.02 (0.01-0.08) K/mm3 Manual Slide Review Abnormal smear Abnormal smear Sodium 132 L (136-145) mEq/L Potassium 4.2 (3.5-5.1) mEq/L Chloride 96 L (98-107) mEq/L Carbon Dioxide 34 H (21-32) mEq/L Anion Gap 6.2 (5-15) BUN 17 (7-18) mg/dL Creatinine 0.6 (0.55-1.02) mg/dL Est Cr Clr Drug Dosing 48.34 mL/min Estimated GFR (MDRD) > 60 (>60) mL/min BUN/Creatinine Ratio 28.3 H (14-18) Glucose 101 (83-115) mg/dL Calcium 8.9 (8.5-10.1) mg/dL Magnesium 2.0 (1.8-2.4) mg/dl 08/13/20 Range/Units 05:00 WBC (3.98-10.04) K/mm3 RBC (3.98-5.22) M/mm3 Hgb (11.2-15.7) gm/dl Hct (34.1-44.9) % MCV (79.4-94.8) fl MCH (25.6-32.2) pg MCHC (32.2-35.5) g/dl RDW Std Deviation (36.4-46.3) fL Plt Count (182-369) K/mm3 MPV (9.4-12.3) fl Neut % (Auto) (34.0-71.1) % Lymph % (Auto) (19.3-51.7) % [place] % (Auto) (4.7-12.5) % Eos % (Auto) (0.7-5.8) Baso % (Auto) (0.1-1.2) % Neut # (Auto) (1.56-6.13) K/mm3 Lymph # (Auto) (1.18-3.74) K/mm3 [place] # (Auto) (0.24-0.36) K/mm3 Eos # (Auto) (0.04-0.36) K/mm3 Baso # (Auto) (0.01-0.08) K/mm3 Manual Slide Review Sodium 133 L (136-145) mEq/L Potassium 4.2 (3.5-5.1) mEq/L Chloride 99 (98-107) mEq/L Carbon Dioxide 31 (21-32) mEq/L Anion Gap 7.2 (5-15) BUN 25 H (7-18) mg/dL Creatinine 0.5 L (0.55-1.02) mg/dL Est Cr Clr Drug Dosing 58.01 mL/min Estimated GFR (MDRD) > 60 (>60) mL/min BUN/Creatinine Ratio 50.0 H (14-18) Glucose 101 (83-115) mg/dL Calcium 8.3 L (8.5-10.1) mg/dL Magnesium 2.1 (1.8-2.4) mg/dl Med Orders - Current: Current Medications Acetaminophen (Tylenol) 650 mg PO Q4H PRN PRN Reason: Pain (Mild 1-3)/fever Last Admin: 08/08/20 07:38 Dose: 650 mg Documented by: Albuterol (Proventil Neb Soln) 2.5 mg NEB Q2H PRN PRN Reason: Shortness Of Breath/wheezing Albuterol (Proventil Hfa) 2 gm INH Q4H PRN PRN Reason: SOB/Cough Last Admin: 08/11/20 02:02 Dose: 2 puff Documented by: Alprazolam (Xanax) 0.25 mg PO Q12H PRN PRN Reason: Anxiety Last Admin: 08/12/20 22:45 Dose: 0.25 mg Documented by: Amlodipine Besylate (Norvasc) 10 mg PO BEDTIME [facility] Last Admin: 08/12/20 20:30 Dose: 10 mg Documented by: Apixaban (Eliquis) 5 mg PO BID [facility] Last Admin: 08/12/20 20:15 Dose: 5 mg Documented by: Aspirin (Halfprin) 81 mg PO DAILY [facility] Last Admin: 08/12/20 08:43 Dose: 81 mg Documented by: Benzocaine/Menthol (Cepacol Sore Throat) 1 lozenge MUCMEM ASDIRECTED PRN PRN Reason: Cough Last Admin: 08/12/20 08:43 Dose: 1 lozenge Documented by: Benzonatate (Tessalon Perles) 200 mg PO QID PRN PRN Reason: Cough Last Admin: 08/11/20 08:55 Dose: 200 mg Documented by: Calcium Carbonate/Glycine (Tums) 1,000 mg PO Q2H PRN PRN Reason: Indigestion Last Admin: 08/12/20 10:47 Dose: 1,000 mg Documented by: Cholecalciferol (Vitamin D3) 25 mcg PO DAILY [facility] Last Admin: 08/12/20 08:44 Dose: 25 mcg Documented by: Dexamethasone (Dexamethasone) 6 mg PO Q24H [facility] Stop: 08/13/20 16:01 Last Admin: 08/12/20 15:32 Dose: 6 mg Documented by: Docusate Sodium (Colace) 100 mg PO BID PRN PRN Reason: Constipation Last Admin: 08/12/20 20:15 Dose: 100 mg Documented by: Ezetimibe (Zetia) 10 mg PO DAILY [facility] Last Admin: 08/12/20 08:43 Dose: 10 mg Documented by: Fluticasone Propionate (Flonase) 0 gm LINDA BID [facility] Last Admin: 12/08/20 20:31 Dose: 1 spray Documented by: Furosemide (Lasix) 20 mg PO DAILY PRN PRN Reason: Edema Gabapentin (Neurontin) 300 mg PO BEDTIME [facility] Last Admin: 08/12/20 20:16 Dose: 300 mg Documented by: Guaifenesin (Mucinex) 600 mg PO TID [facility] Last Admin: 08/12/20 20:16 Dose: 600 mg Documented by: Guaifenesin/Codeine Phosphate (Robitussin Ac) 5 ml PO Q4H PRN PRN Reason: Cough Last Admin: 08/12/20 08:43 Dose: 5 ml Documented by: Diltiazem HCl 100 mg/ Sodium (Chloride) 100 mls @ 5 mls/hr IV TITRATE [facility]; Protocol Last Titration: 08/05/20 08:00 Dose: 0 mg/hr, 0 mls/hr Documented by: Lidocaine (Aspercreme 4%) 1 each TOP DAILY [facility] Last Admin: 08/12/20 08:44 Dose: 1 each Documented by: Losartan Potassium (Cozaar) 50 mg PO BID [facility] Last Admin: 08/12/20 20:30 Dose: 50 mg Documented by: Magnesium Hydroxide (Milk Of Magnesia) 30 ml PO Q4H PRN PRN Reason: Constipation Last Admin: 08/12/20 20:52 Dose: 30 ml Documented by: Metoprolol Tartrate (Lopressor) 75 mg PO BID [facility] Last Admin: 08/12/20 20:30 Dose: 75 mg Documented by: Miscellaneous Information (Remove Patch) 1 ea TRDERM BEDTIME [facility] Last Admin: 08/12/20 20:30 Dose: 1 ea Documented by: Nitroglycerin (Nitrostat) 0.4 mg SL ASDIRECTED PRN PRN Reason: Chest Pain Lovastatin 80 Mg (Ptom) 80 mg PO BEDTIME [facility] Last Admin: 08/12/20 20:29 Dose: Not Given Documented by: Ondansetron HCl (Zofran) 4 mg IV Q4H PRN PRN Reason: Nausea/Vomiting Primidone (Mysoline) 300 mg PO BID [facility] Last Admin: 08/12/20 20:28 Dose: 300 mg Documented by: Promethazine HCl/Codeine (Phenergan With Codeine) 5 ml PO Q4HR PRN PRN Reason: Cough Last Admin: 08/13/20 02:55 Dose: 5 ml Documented by: Sodium Chloride (Saline Flush) 10 ml FLUSH ASDIRECTED PRN PRN Reason: Keep Vein Open Spironolactone (Aldactone) 25 mg PO DAILY [facility] Last Admin: 08/12/20 08:44 Dose: 25 mg Documented by: Zinc Sulfate (Zincate) 220 mg PO DAILY [facility] Last Admin: 08/12/20 08:43 Dose: 220 mg Documented by: Discontinued Medications Acetaminophen (Tylenol) 975 mg PO ONETIME ONE Stop: 08/04/20 10:01 Last Admin: 08/04/20 10:52 Dose: 975 mg Documented by: Al Hydroxide/Mg Hydroxide (Mag-Al Plus) 30 ml PO Q4H PRN PRN Reason: Heartburn Stop: 08/07/20 04:13 Last Admin: 08/05/20 04:23 Dose: 30 ml Documented by: Amlodipine Besylate (Norvasc) 5 mg PO BEDTIME [facility] Last Admin: 08/08/20 21:01 Dose: 5 mg Documented by: Amlodipine Besylate (Norvasc) 5 mg PO ONETIME ONE Stop: 08/09/20 17:13 Last Admin: 08/10/20 08:45 Dose: Not Given Documented by: Amlodipine Besylate (Norvasc) 10 mg PO BEDTIME [facility] Amlodipine Besylate (Norvasc) 5 mg PO BEDTIME [facility] Last Admin: 08/10/20 20:18 Dose: 5 mg Documented by: Amlodipine Besylate (Norvasc) 10 mg PO DAILY [facility] Chlorthalidone (Chlorthalidone) 12.5 mg PO DAILY [facility] Last Admin: 08/07/20 16:41 Dose: Not Given Documented by: Diltiazem HCl (Cardizem) 10 mg IVPUSH ONETIME ONE Stop: 08/05/20 03:24 Last Admin: 08/05/20 03:34 Dose: 10 mg Documented by: Diltiazem HCl (Cardizem) 10 mg IVPUSH ONETIME ONE Stop: 08/05/20 04:05 Last Admin: 08/05/20 04:11 Dose: 10 mg Documented by: Enoxaparin Sodium (Lovenox) 30 mg SUBCUT Q12H [facility] Last Admin: 08/04/20 16:56 Dose: 30 mg Documented by: Enoxaparin Sodium (Lovenox) 30 mg SUBCUT Q12H [facility] Last Admin: 08/05/20 17:33 Dose: 30 mg Documented by: Famotidine (Pepcid) 20 mg IVPUSH ONETIME ONE Stop: 08/05/20 09:01 Last Admin: 08/05/20 09:43 Dose: Not Given Documented by: Furosemide (Lasix) 40 mg IVPUSH NOW [facility] Stop: 08/04/20 17:00 Furosemide (Lasix) 20 mg IVPUSH ONETIME ONE Stop: 08/04/20 22:01 Last Admin: 08/04/20 22:43 Dose: 20 mg Documented by: Furosemide (Lasix) 40 mg IVPUSH NOW ONE Stop: 08/06/20 14:16 Last Admin: 08/06/20 14:29 Dose: 40 mg Documented by: Dextrose/Sodium Chloride (Dextrose 5%-Normal Saline) 1,000 mls @ 150 mls/hr IV ASDIRECTED [facility] Last Admin: 08/04/20 10:51 Dose: 150 mls/hr Documented by: Remdesivir 200 mg/ Sodium (Chloride) 250 mls @ 250 mls/hr IV ONETIME ONE Stop: 08/04/20 14:33 Last Admin: 08/04/20 16:54 Dose: 250 mls/hr Documented by: Remdesivir 100 mg/ Sodium (Chloride) 100 mls @ 100 mls/hr IV Q24H [facility] Stop: 08/08/20 16:59 Last Admin: 08/08/20 15:31 Dose: 100 mls/hr Documented by: Azithromycin 500 mg/ Sodium (Chloride) 250 mls @ 250 mls/hr IV Q24H [facility] Stop: 08/06/20 17:59 Last Admin: 08/06/20 16:58 Dose: 250 mls/hr Documented by: Ceftriaxone Sodium 2 gm/ (Sodium Chloride) 100 mls @ 200 mls/hr IV Q24H [facility] Stop: 08/08/20 18:29 Last Admin: 08/08/20 17:36 Dose: 200 mls/hr Documented by: Sodium Chloride (Normal Saline) Confirm Administered Dose 250 mls @ as directed .ROUTE .STK-MED ONE Stop: 08/04/20 20:59 Last Admin: 08/04/20 21:14 Dose: 50 mls/hr Documented by: Potassium Chloride 10 meq/ (Premix) 100 mls @ 100 mls/hr IV Q1H [facility] Stop: 08/05/20 12:59 Last Admin: 08/05/20 12:51 Dose: 100 mls/hr Documented by: Metoprolol Tartrate (Lopressor) 2.5 mg IVPUSH ONETIME ONE Stop: 08/05/20 07:47 Last Admin: 08/05/20 07:56 Dose: 2.5 mg Documented by: Metoprolol Tartrate (Lopressor) 50 mg PO BIDMEALS [facility] Last Admin: 08/06/20 08:24 Dose: 50 mg Documented by: Metoprolol Tartrate (Lopressor) 2.5 mg IVPUSH ONETIME ONE Stop: 08/05/20 08:13 Last Admin: 08/05/20 17:45 Dose: 2.5 mg Documented by: Metoprolol Tartrate (Lopressor) 75 mg PO BIDMEALS [facility] Last Admin: 08/11/20 17:36 Dose: 75 mg Documented by: Metoprolol Tartrate (Lopressor) 25 mg PO ONETIME ONE Stop: 08/06/20 09:31 Last Admin: 08/06/20 09:31 Dose: 25 mg Documented by: Non-Formulary Medication (Docusate Sodium [Colace]) 150 mg PO DAILY [facility] Potassium Chloride (Klor-Con M20) 40 meq PO ONETIME ONE Stop: 08/06/20 11:01 Last Admin: 08/06/20 11:58 Dose: 40 meq Documented by: - Exam Quality Assessment: No: Supplemental Oxygen General: Alert, Oriented, Cooperative, No Acute Distress HEENT: Pupils Equal, Pupils Reactive, EOMI, Mucous Membr. Moist/[place] Neck: Supple Lungs: Normal Respiratory Effort, Decreased Breath Sounds Cardiovascular: Regular Rate, Regular Rhythm GI/Abdominal Exam: Normal Bowel Sounds, Soft, Non-Tender, No Organomegaly, No Distention, No Abnormal Bruit (Female) Exam: Deferred Back Exam: Normal Inspection, Decreased Range of Motion Extremities: Normal Inspection, Normal Range of Motion, Non-Tender, No Pedal Edema, Normal Capillary Refill Peripheral Pulses: 2+: Dorsalis Pedis (L), Dorsalis Pedis (R) Skin: Warm, Dry, Intact Neurological: No New Focal Deficit, Other (Tremors: right hand) Psy/Mental Status: Alert, Normal Affect, Normal Mood Sepsis Event Note - Evaluation Sepsis Screening Result: No Definite Risk - Focused Exam Vital Signs: Vital Signs Temp Pulse Resp BP BP Pulse Ox 08/13/20 04:00 16 94 L 08/12/20 22:00 36.8 C 18 134/82 93 L 08/12/20 20:30 70 134/82 - Problem List Review Problem List Initiated/Reviewed/Updated: Yes - My Orders Last 24 Hours: My Active Orders 08/12/20 14:17 Furosemide [Lasix] 20 mg PO DAILY PRN 08/13/20 05:11 Chest 1V Frontal [CR] AM - Assessment Assessment:: Assessment: Acute: Covid-19 Infection Viral Pneumonitis/Atypical Pneumonia -Completed 2 units of convalescent plasma -5 day course of Veklury -Rocephin and Azithromycin -On day 9th of Dexamethasone -Continue IS and FV as directed -She remains on RA New onset A. fib with RVRresolved -Rate is well controlled on metoprolol tartrate 75 mg po BID -Anticoagulate secondary to A. fib with Eliquis -HR is well controlled: 60s-70s HTN -Vital signs every 4 hours -BP Meds: Metoprolol tartrate 75 mg po BID, Aldactone 25 mg po daily, Losartan 50 mg po BID, Norvasc 10 mg po daily, and PRN Lasix 20 mg po daily -Blood pressure is adequately controlled Hypo-osmolar hyponatremia, stable -She is not symptomatic -Na now at 133 -On Lasix 20 mg daily as needed -Continue fluid restriction to 1500 ml daily -Continue to monitor intake and output every 8 hours Congestive heart failure (CHF) with Preserved EF -Elevated proBNP of 2163 -Has likely pulmonary HTN -2D echo shows normal EF 60-65%. No RWMA. Moderate calcification and thickening of mitral leaflets. Moderate-Severe RVSP at 62.7 mmHg -Continue Lasix and Aldactone -1.5 L for fluid restriction and AHA diet -Follow-up chest x-ray 08/13/2020 read as nothing acute seen Leukocytosis, POA, improved -Likely from underlying infection but also on steroids -WBC of 13.32 this morning -Will monitor Mild Hypochloremia with Cl, 93, POA, resolved Hyperglycemia, POA, resolved -Likely due to steroid and now on steroids -Carries no hx/o diabetes or glucose intolerance -We will monitor Elevated CRP level of 28.4, POA, improved -Most recent level of 3.4 -Likely 2/2 underlying infection Hypoalbuminemia, POA -Albumin of 2.8; now 2.3 -Bookkeepers Supervisor following Macrocytic Normochromic Anemia with Hgb of 10.4, stable Chronic: Impaired Vision and Hearing HTN HLD Hx/o MA CAD S/p stents placement Asthma HIWOT Chronic Constipation Recurrent UTI OA Hx/o esophageal cancer Hx/o Splenectomy Anxiety ET - Plan Plan:: 08/04/20 * 85-year-old female with gradual onset weakness, cough, decreased appetite, fever chills and diaphoresis that started about a week ago. Has been exposed to COVID-19 about 2 weeks ago at a . * Presented to the emergency department and was hypoxemic at 86% on room air. * Initial vital signs in the emergency department reveal a temp of 37.3 Celsius, pulse 84, respiratory rate 20, pressure 170/68, pulse ox 91% on 2 L of oxygen per nasal cannula * Labs in the ED revealed WBC 14.19, sodium 126, potassium 4.1, BUN 8, creatinine 0.6, GFR greater than 60, lactic acid 1.4, LDH 221, troponin I 0.019, C-reactive protein 18.7, D-dimer 1.03, ferritin 142, proBNP 2163, she is Covid positive, urinalysis is unremarkable for infection. Sets of blood cultures were also collected in the emergency department. * Portable chest x-ray reveals a mild increase in interstitial lung markings bilaterally. There is a nodule airspace opacity within the right midlung zone. Findings suggest a pneumonic infiltrate. Consider atypical viral etiology. Pleural spaces otherwise unremarkable with no pleural effusion or pneumothorax. Heart size is mildly prominent. 08/05/2020 * New onset atrial fibrillation with RVR overnight. Stabilized with IV metoprolol and oral metoprolol. * Patient did have some chest pain with the chest pain and her troponin increased slightly to 0.06 * Patient's chest pain when I examined was mostly in her abdomen. This did resolve with resolution of her A. fib RVR. * Patient continues to have hyponatremia 129, white count is elevated at 15.1 likely secondary to inflammation, hypokalemia with potassium of 3.2 and worsening of her proBNP at 3894. * Procalcitonin is less than 0.05. This makes it unlikely that her white count is secondary to significant bacterial infection. PLAN: Pneumonia due to 2019 novel coronavirus, Acute hypoxemic respiratory failure * Convalescent plasma 2 units today. I spoke with the patient to provide information about convalescent plasma for herself. I offered her the fax sheet for patients and caregivers for COVID-19 convalescent plasma to read and review. I stated the therapy has been approved by an emergency youth a uthorization process and has not fully been FDA reviewed or approved. I shared potential risks from the therapy including transmission of blood-borne pathogen such as HIV and hepatitis C, allergic and transfusion related reactions, post transfusion purpura. Additionally theoretical risks including a phenomenon called antibodydependent enhancement of infection such as seen in dengue or attenuation of an immune response that may make patients more susceptible to reinfection. I discussed there are other potential treatment options that are currently not FDA approved to treat COVID-19. Offered opportunity to ask questions and all questions were answered. The patient voiced understanding and agreed to proceed with treatment for herself. * Remdesivir 200 mg IV x1 dose then 100 mg daily x4 more doses. * Dexamethasone 6 mg p.o. daily x10 days * Rocephin 2 g daily x5 days * Zithromax 500 mg IV daily x3 days * Incentive spirometer and flutter valve every hour while awake 08/06/20 New onset A. fib with RVR * Rate is still not controlled on current dose of metoprolol. Increase metoprolol to 75 mg by mouth twice daily. * Anticoagulate secondary to A. fib with Eliquis HTN (hypertension) * Vital signs every 4 hours * Readjust antihypertensives based on blood pressure and adjustment of metoprolol Hyponatremia * Restart Lasix in the morning 20 mg daily as needed * 1500 mL fluid restriction every 24 hours * Monitor intake and output every 8 hours Congestive heart failure (CHF) * Furosemide 40mg IV x 1 dose today. * Follow-up chest x-rays as needed * Echocardiogram pending Eliquis for stroke and DVT prophylaxis Patient is a DNR/DNI PT OT to eval and treat Dietitian consult regarding patient's caloric needs managed services sales consultant and case management for discharge planning Respiratory therapy to titrate oxygen to keep O2 saturations between 88 and 94% Change patient to [facility] status with telemetry and continuous pulse oximetry. Discontinue Adkins catheter, but maintain strict VIJAYA and daily weight Patient will be here greater than 96 hours due to the standard 5-day treatment course for Covid 08/07/20 New onset A. fib with RVR * Rate is well controlled on metoprolol * Anticoagulate secondary to A. fib with Eliquis HTN (hypertension) * Vital signs every 4 hours * Readjust antihypertensives based on blood pressure and adjustment of metoprolol * Start chlorthalidone 12.5 mg daily Hyponatremia * Restart Lasix in the morning 20 mg daily as needed * 1500 mL fluid restriction every 24 hours * Monitor intake and output every 8 hours * Sodium 129 today. Upon further investigation and patient's previous hospital visits, this is a chronic issue. Will have patient's primary physician follow-up regarding this as patient is asymptomatic. Congestive heart failure (CHF) * Follow-up chest x-rays as needed * Lasix 20 mg daily as needed 08/08/2020 New onset A. fib with RVRstable * Rate is well controlled on metoprolol * Anticoagulate secondary to A. fib with Eliquis HTN (hypertension) * Vital signs every 4 hours * Readjust antihypertensives based on blood pressure and adjustment of metoprolol * Chlorthalidone was held secondary to hyponatremia * Norvasc restarted at a lower dose of 5 mg daily Hyponatremia * Lasix in the morning 20 mg daily as needed * 1500 mL fluid restriction every 24 hours * Monitor intake and output every 8 hours * Sodium 131 today. Upon further investigation and patient's previous hospital visits, this is a chronic issue. Will have patient's primary physician follow-up regarding this as patient is asymptomatic. Congestive heart failure (CHF) * Follow-up chest x-rays as needed * Lasix 20 mg daily as needed 08/09/2020 New onset A. fib with RVRstable * Rate is well controlled on metoprolol * Anticoagulate secondary to A. fib with Eliquis HTN (hypertension) * Vital signs every 4 hours * Readjust antihypertensives based on blood pressure and adjustment of metoprolol * Chlorthalidone was held secondary to hyponatremia * Norvasc restarted at a lower dose of 5 mg at bedtime Hyponatremia * Lasix in the morning 20 mg daily as needed * 1500 mL fluid restriction every 24 hours * Monitor intake and output every 8 hours * Sodium 133improvedtoday. Upon further investigation and patient's previous hospital visits, this is a chronic issue. Will have patient's primary physician follow-up regarding this as patient is asymptomatic. Congestive heart failure (CHF) * Follow-up chest x-rays as needed * Lasix 20 mg daily as needed 08/10/2020 New onset A. fib with RVRstable * Rate is well controlled on metoprolol * Anticoagulate secondary to A. fib with Eliquis HTN (hypertension) * Vital signs every 4 hours * Readjust antihypertensives based on blood pressure and adjustment of metoprolol * Chlorthalidone was held secondary to hyponatremia * Norvasc restarted at a lower dose of 5 mg at bedtime * Blood pressure is adequately treated Hyponatremia * Lasix 20 mg daily as needed * Increase fluid restriction to 2000 mL * Monitor intake and output every 8 hours * Recheck labs in the morning. Congestive heart failure (CHF) * Follow-up chest x-rays as needed * Lasix 20 mg daily as needed * Continue metoprolol Eliquis for stroke and DVT prophylaxis Patient is a DNR/DNI PT OT to eval and treat managed services sales consultant and case management for discharge planning patient has agreed to go to [facility] upon discharge. Respiratory therapy to titrate oxygen to keep O2 saturations between 88 and 94% Patient will be here greater than 96 hours due to the standard 5-day treatment course for Covid 08/11/2020 New onset A. fib with RVRstable * Rate is well controlled on metoprolol * Anticoagulate secondary to A. fib with Eliquis HTN (hypertension) * Vital signs every 4 hours * Readjust antihypertensives based on blood pressure and adjustment of metoprolol * Norvasc raised to 10 mg daily. This is her home dose. * Blood pressure is adequately treated Hyponatremia * Lasix 20 mg daily as needed * Increase fluid restriction to 2000 mL * Monitor intake and output every 8 hours Congestive heart failure (CHF) * Follow-up chest x-rays as needed * Lasix 20 mg daily as needed * Continue metoprolol Eliquis for stroke and DVT prophylaxis Patient is a DNR/DNI PT OT to eval and treat managed services sales consultant and case management for discharge planning patient has agreed to go to [facility] upon discharge. Awaiting acceptance to alf. Respiratory therapy to titrate oxygen to keep O2 saturations between 88 and 94% Patient will be here greater than 96 hours due to the standard 5-day treatment course for Covid 08/12/2020 Continue steroid therapy Routine AM Labs Encourage to ambulate inside her room as much as she can IS and FV as directed Fluid restriction to 1500 ml daily Chest x-ray in AM [employer] following PT/OT to assess and treat She is being evaluated by [facility] LOS> 96hrs and pending placement due to new rules/protocol for covid-patient alf placement 08/13/2020 Continue steroid therapy Routine AM Labs Encourage to ambulate inside her room as much as she can IS and FV as directed Continue Fluid restriction to 1500 ml daily [employer] following PT/OT to assess and treat Discharge to [facility] this Tuesday per SW
[2020-08-13] MEDS: Lidocaine 4% 1 each Patch TOP SCH (08:32)
[2020-08-13] MEDS: Primidone 50 MG Tab PO SCH ×2 (08:33→21:11)
[2020-08-13] MEDS: Cholecalciferol (Vitamin D3) 25 MCG Tab PO SCH (08:33)
[2020-08-13] MEDS: Aspirin 81 MG Tab.EC PO SCH (08:33)
[2020-08-13] MEDS: Ezetimibe 10 MG Tab PO SCH (08:33)
[2020-08-13] MEDS: Metoprolol Tartrate 25 MG Tab PO SCH ×2 (08:33→21:16)
[2020-08-13] MEDS: guaiFENesin 600 MG Tab.ER PO SCH ×3 (08:33→21:13)
[2020-08-13] MEDS: Apixaban 5 MG Tab PO SCH ×2 (08:34→21:14)
[2020-08-13] MEDS: Fluticasone Propionate Nasal Spray 16 GM Bottle NAS SCH ×2 (08:34→21:30)
[2020-08-13] MEDS: Zinc Sulfate 220 MG Cap PO SCH (08:34)
[2020-08-13] MEDS: Spironolactone 25 MG Tab PO SCH (08:34)
[2020-08-13] MEDS: Losartan 25 MG Tab PO SCH ×2 (08:34→21:14)
[2020-08-13] MEDS ORDERED: DOCUSATE SODIUM 150 MG PO SCH (09:00)
[2020-08-13] MEDS ORDERED: amLODIPine 10 MG Tab PO SCH (09:00)
[2020-08-13] MEDS: Codeine/guaiFENesin 10-100 MG/5 ML Syrup 5 ML Cup PO PRN (09:40)
[2020-08-13] MEDS: ALPRAZolam 0.25 MG Tab PO PRN ×2 (09:41→21:42)
[2020-08-13] MEDS ORDERED: Magnesium Hydroxide 400 MG/5 ML Susp 30 ML Cup PO ONE (09:47)
[2020-08-13] MEDS: Acetaminophen 325 MG Tab PO PRN (09:57)
--- NOTE | 2020-08-13 10:38 | CR ---
Chest: Portable view of the chest was obtained. Comparison: Prior chest x-ray of 11/21/17. Findings: Lungs: Slight chronic atelectasis adjacent to the left hemidiaphragm is seen. Lungs otherwise are clear. No pleural effusions are seen. Heart size and mediastinum: Mild tortuosity of the thoracic aorta is seen. Mediastinum shows no mass. Osseous: Slight scoliosis within the spine is seen. No acute osseous finding is seen. Old healed rib fracture is noted within the sixth rib. Impression: 1. Findings as noted above. 2. Nothing acute is seen. Diagnostic code #2
[2020-08-13] MEDS: Docusate Sodium 100 MG Cap PO PRN (14:54)
[2020-08-13] MEDS: Dexamethasone 4 MG Tab PO SCH (16:02)
[2020-08-13] MEDS: Gabapentin 300 MG Cap PO SCH (21:13)
[2020-08-13] MEDS: amLODIPine 10 MG Tab PO SCH (21:15)
[2020-08-13] MEDS: LOVASTATIN 80 MG PO SCH (22:54)
[2020-08-14] MEDS: Spironolactone 25 MG Tab PO SCH (09:09)
[2020-08-14] MEDS: Losartan 25 MG Tab PO SCH ×2 (09:09→21:08)
[2020-08-14] MEDS: Ezetimibe 10 MG Tab PO SCH (09:09)
[2020-08-14] MEDS: Apixaban 5 MG Tab PO SCH ×2 (09:12→21:07)
[2020-08-14] MEDS: Zinc Sulfate 220 MG Cap PO SCH (09:13)
[2020-08-14] MEDS: Aspirin 81 MG Tab.EC PO SCH (09:13)
[2020-08-14] MEDS: Cholecalciferol (Vitamin D3) 25 MCG Tab PO SCH (09:13)
[2020-08-14] MEDS: guaiFENesin 600 MG Tab.ER PO SCH ×3 (09:13→21:03)
[2020-08-14] MEDS: Metoprolol Tartrate 25 MG Tab PO SCH ×2 (09:15→21:07)
[2020-08-14] MEDS: Primidone 50 MG Tab PO SCH ×2 (09:15→21:02)
[2020-08-14] MEDS: Lidocaine 4% 1 each Patch TOP SCH (09:16)
[2020-08-14] MEDS: Fluticasone Propionate Nasal Spray 16 GM Bottle NAS SCH ×2 (09:16→21:08)
--- NOTE | 2020-08-14 11:53 | PCM.PN ---
- General Info Date of Service: 08/14/20 Admission Dx/Problem (Free Text): Admission Diagnosis/Problem Admission Diagnosis/Problem Weakness Subjective Update: Patient states she is doing very well today. States her cough is much better, and she is finally able to get some sleep at nighttime. Denies complaints of pain or discomfort and she reports that she is ready to go to [facility] tomorrow. Functional Status: Reports: Pain Controlled, Tolerating Diet, Ambulating, Urinating, Incentive Spirometry - Review of Systems General: Reports: No Symptoms HEENT: Reports: No Symptoms Pulmonary: Reports: No Symptoms Cardiovascular: Reports: No Symptoms Gastrointestinal: Reports: No Symptoms Genitourinary: Reports: No Symptoms Musculoskeletal: Reports: Other (left knee pain) Skin: Reports: No Symptoms Neurological: Reports: No Symptoms Psychiatric: Reports: No Symptoms - Patient Data Vitals - Most Recent: Last Vital Signs Temp 97.7 F 08/14/20 04:00 Pulse 68 08/14/20 09:15 Resp 14 08/14/20 04:00 BP 140/70 08/14/20 09:15 Pulse Ox 92 L 08/14/20 04:00 Weight - Most Recent: 134 lb 7.712 oz I&O - Last 24 Hours: Intake & Output 08/13/20 08/14/20 08/14/20 22:59 06:59 14:59 Intake Total 480 30 200 Balance 480 30 200 Lab Results Last 24 Hours: Laboratory Results - last 24 hr 08/14/20 08/14/20 08/14/20 Range/Units 05:10 05:10 05:10 WBC 13.20 H (3.98-10.04) K/mm3 RBC 3.18 L (3.98-5.22) M/mm3 Hgb 10.3 L (11.2-15.7) gm/dl Hct 31.2 L (34.1-44.9) % MCV 98.1 H (79.4-94.8) fl MCH 32.4 H (25.6-32.2) pg MCHC 33.0 (32.2-35.5) g/dl RDW Std Deviation 49.0 H (36.4-46.3) fL Plt Count 377 H (182-369) K/mm3 MPV 9.9 (9.4-12.3) fl Neut % (Auto) 48.7 (34.0-71.1) % Lymph % (Auto) 20.0 (19.3-51.7) % Chaves % (Auto) 29.7 H (4.7-12.5) % Eos % (Auto) 0.6 L (0.7-5.8) Baso % (Auto) 0.1 (0.1-1.2) % Neut # (Auto) 6.43 H (1.56-6.13) K/mm3 Lymph # (Auto) 2.64 (1.18-3.74) K/mm3 Chaves # (Auto) 3.92 H (0.24-0.36) K/mm3 Eos # (Auto) 0.08 (0.04-0.36) K/mm3 Baso # (Auto) 0.01 (0.01-0.08) K/mm3 Manual Slide Review Abnormal smear Sodium 133 L (136-145) mEq/L Potassium 4.3 (3.5-5.1) mEq/L Chloride 97 L (98-107) mEq/L Carbon Dioxide 29 (21-32) mEq/L Anion Gap 11.3 (5-15) BUN 27 H (7-18) mg/dL Creatinine 0.6 (0.55-1.02) mg/dL Est Cr Clr Drug Dosing 48.34 mL/min Estimated GFR (MDRD) > 60 (>60) mL/min BUN/Creatinine Ratio 45.0 H (14-18) Glucose 102 (83-115) mg/dL Calcium 8.4 L (8.5-10.1) mg/dL NT-Pro-B Natriuret Pep 799 H (0-450) pg/mL Med Orders - Current: Current Medications Acetaminophen (Tylenol) 650 mg PO Q4H PRN PRN Reason: Pain (Mild 1-3)/fever Last Admin: 08/13/20 09:57 Dose: 650 mg Documented by: Albuterol (Proventil Neb Soln) 2.5 mg NEB Q2H PRN PRN Reason: Shortness Of Breath/wheezing Albuterol (Proventil Hfa) 2 gm INH Q4H PRN PRN Reason: SOB/Cough Last Admin: 08/11/20 02:02 Dose: 2 puff Documented by: Alprazolam (Xanax) 0.25 mg PO Q12H PRN PRN Reason: Anxiety Last Admin: 08/13/20 21:42 Dose: 0.25 mg Documented by: Amlodipine Besylate (Norvasc) 10 mg PO BEDTIME [facility] Last Admin: 08/13/20 21:15 Dose: 10 mg Documented by: Apixaban (Eliquis) 5 mg PO BID [facility] Last Admin: 08/14/20 09:12 Dose: 5 mg Documented by: Aspirin (Halfprin) 81 mg PO DAILY [facility] Last Admin: 08/14/20 09:13 Dose: 81 mg Documented by: Benzocaine/Menthol (Cepacol Sore Throat) 1 lozenge MUCMEM ASDIRECTED PRN PRN Reason: Cough Last Admin: 08/12/20 08:43 Dose: 1 lozenge Documented by: Benzonatate (Tessalon Perles) 200 mg PO QID PRN PRN Reason: Cough Last Admin: 08/11/20 08:55 Dose: 200 mg Documented by: Calcium Carbonate/Glycine (Tums) 1,000 mg PO Q2H PRN PRN Reason: Indigestion Last Admin: 08/12/20 10:47 Dose: 1,000 mg Documented by: Cholecalciferol (Vitamin D3) 25 mcg PO DAILY [facility] Last Admin: 08/14/20 09:13 Dose: 25 mcg Documented by: Docusate Sodium (Colace) 100 mg PO BID PRN PRN Reason: Constipation Last Admin: 08/13/20 14:54 Dose: 100 mg Documented by: Ezetimibe (Zetia) 10 mg PO DAILY [facility] Last Admin: 08/14/20 09:09 Dose: 10 mg Documented by: Fluticasone Propionate (Flonase) 0 gm LINDA BID [facility] Last Admin: 08/14/20 09:16 Dose: 1 spray Documented by: Furosemide (Lasix) 20 mg PO DAILY PRN PRN Reason: Edema Gabapentin (Neurontin) 300 mg PO BEDTIME [facility] Last Admin: 08/13/20 21:13 Dose: 300 mg Documented by: Guaifenesin (Mucinex) 600 mg PO TID [facility] Last Admin: 08/14/20 09:13 Dose: 600 mg Documented by: Guaifenesin/Codeine Phosphate (Robitussin Ac) 5 ml PO Q4H PRN PRN Reason: Cough Last Admin: 12/09/20 09:40 Dose: 5 ml Documented by: Diltiazem HCl 100 mg/ Sodium (Chloride) 100 mls @ 5 mls/hr IV TITRATE [facility]; Protocol Last Titration: 08/05/20 08:00 Dose: 0 mg/hr, 0 mls/hr Documented by: Lidocaine (Aspercreme 4%) 1 each TOP DAILY [facility] Last Admin: 08/14/20 09:16 Dose: 1 each Documented by: Losartan Potassium (Cozaar) 50 mg PO BID [facility] Last Admin: 08/14/20 09:09 Dose: 50 mg Documented by: Magnesium Hydroxide (Milk Of Magnesia) 30 ml PO Q4H PRN PRN Reason: Constipation Last Admin: 08/12/20 20:52 Dose: 30 ml Documented by: Meclizine HCl (Antivert) 25 mg PO Q4HR PRN PRN Reason: Dizziness Metoprolol Tartrate (Lopressor) 75 mg PO BID [facility] Last Admin: 08/14/20 09:15 Dose: 75 mg Documented by: Miscellaneous Information (Remove Patch) 1 ea TRDERM BEDTIME [facility] Last Admin: 08/13/20 22:56 Dose: 1 ea Documented by: Nitroglycerin (Nitrostat) 0.4 mg SL ASDIRECTED PRN PRN Reason: Chest Pain Lovastatin 80 Mg (Ptom) 80 mg PO BEDTIME [facility] Last Admin: 08/13/20 22:54 Dose: Not Given Documented by: Ondansetron HCl (Zofran) 4 mg IV Q4H PRN PRN Reason: Nausea/Vomiting Primidone (Mysoline) 300 mg PO BID [facility] Last Admin: 08/14/20 09:15 Dose: 300 mg Documented by: Promethazine HCl/Codeine (Phenergan With Codeine) 5 ml PO Q4HR PRN PRN Reason: Cough Last Admin: 08/13/20 21:13 Dose: 5 ml Documented by: Sodium Chloride (Saline Flush) 10 ml FLUSH ASDIRECTED PRN PRN Reason: Keep Vein Open Spironolactone (Aldactone) 25 mg PO DAILY [facility] Last Admin: 08/14/20 09:09 Dose: 25 mg Documented by: Zinc Sulfate (Zincate) 220 mg PO DAILY [facility] Last Admin: 08/14/20 09:13 Dose: 220 mg Documented by: Discontinued Medications Acetaminophen (Tylenol) 975 mg PO ONETIME ONE Stop: 08/04/20 10:01 Last Admin: 08/04/20 10:52 Dose: 975 mg Documented by: Al Hydroxide/Mg Hydroxide (Mag-Al Plus) 30 ml PO Q4H PRN PRN Reason: Heartburn Stop: 08/07/20 04:13 Last Admin: 08/05/20 04:23 Dose: 30 ml Documented by: Amlodipine Besylate (Norvasc) 5 mg PO BEDTIME [facility] Last Admin: 08/08/20 21:01 Dose: 5 mg Documented by: Amlodipine Besylate (Norvasc) 5 mg PO ONETIME ONE Stop: 08/09/20 17:13 Last Admin: 08/10/20 08:45 Dose: Not Given Documented by: Amlodipine Besylate (Norvasc) 10 mg PO BEDTIME [facility] Amlodipine Besylate (Norvasc) 5 mg PO BEDTIME [facility] Last Admin: 08/10/20 20:18 Dose: 5 mg Documented by: Amlodipine Besylate (Norvasc) 10 mg PO DAILY [facility] Chlorthalidone (Chlorthalidone) 12.5 mg PO DAILY [facility] Last Admin: 08/07/20 16:41 Dose: Not Given Documented by: Dexamethasone (Dexamethasone) 6 mg PO Q24H [facility] Stop: 08/13/20 16:01 Last Admin: 08/13/20 16:02 Dose: 6 mg Documented by: Diltiazem HCl (Cardizem) 10 mg IVPUSH ONETIME ONE Stop: 08/05/20 03:24 Last Admin: 08/05/20 03:34 Dose: 10 mg Documented by: Diltiazem HCl (Cardizem) 10 mg IVPUSH ONETIME ONE Stop: 08/05/20 04:05 Last Admin: 08/05/20 04:11 Dose: 10 mg Documented by: Enoxaparin Sodium (Lovenox) 30 mg SUBCUT Q12H [facility] Last Admin: 08/04/20 16:56 Dose: 30 mg Documented by: Enoxaparin Sodium (Lovenox) 30 mg SUBCUT Q12H [facility] Last Admin: 08/05/20 17:33 Dose: 30 mg Documented by: Famotidine (Pepcid) 20 mg IVPUSH ONETIME ONE Stop: 08/05/20 09:01 Last Admin: 08/05/20 09:43 Dose: Not Given Documented by: Furosemide (Lasix) 40 mg IVPUSH NOW [facility] Stop: 08/04/20 17:00 Furosemide (Lasix) 20 mg IVPUSH ONETIME ONE Stop: 08/04/20 22:01 Last Admin: 08/04/20 22:43 Dose: 20 mg Documented by: Furosemide (Lasix) 40 mg IVPUSH NOW ONE Stop: 08/06/20 14:16 Last Admin: 08/06/20 14:29 Dose: 40 mg Documented by: Dextrose/Sodium Chloride (Dextrose 5%-Normal Saline) 1,000 mls @ 150 mls/hr IV ASDIRECTED [facility] Last Admin: 08/04/20 10:51 Dose: 150 mls/hr Documented by: Remdesivir 200 mg/ Sodium (Chloride) 250 mls @ 250 mls/hr IV ONETIME ONE Stop: 08/04/20 14:33 Last Admin: 08/04/20 16:54 Dose: 250 mls/hr Documented by: Remdesivir 100 mg/ Sodium (Chloride) 100 mls @ 100 mls/hr IV Q24H [facility] Stop: 08/08/20 16:59 Last Admin: 08/08/20 15:31 Dose: 100 mls/hr Documented by: Azithromycin 500 mg/ Sodium (Chloride) 250 mls @ 250 mls/hr IV Q24H [facility] Stop: 08/06/20 17:59 Last Admin: 08/06/20 16:58 Dose: 250 mls/hr Documented by: Ceftriaxone Sodium 2 gm/ (Sodium Chloride) 100 mls @ 200 mls/hr IV Q24H [facility] Stop: 08/08/20 18:29 Last Admin: 08/08/20 17:36 Dose: 200 mls/hr Documented by: Sodium Chloride (Normal Saline) Confirm Administered Dose 250 mls @ as directed .ROUTE .STK-MED ONE Stop: 08/04/20 20:59 Last Admin: 08/04/20 21:14 Dose: 50 mls/hr Documented by: Potassium Chloride 10 meq/ (Premix) 100 mls @ 100 mls/hr IV Q1H [facility] Stop: 08/05/20 12:59 Last Admin: 08/05/20 12:51 Dose: 100 mls/hr Documented by: Magnesium Hydroxide (Milk Of Magnesia) 30 ml PO ONETIME ONE Stop: 08/13/20 09:48 Last Admin: 08/13/20 09:56 Dose: 30 ml Documented by: Metoprolol Tartrate (Lopressor) 2.5 mg IVPUSH ONETIME ONE Stop: 08/05/20 07:47 Last Admin: 08/05/20 07:56 Dose: 2.5 mg Documented by: Metoprolol Tartrate (Lopressor) 50 mg PO BIDMEALS [facility] Last Admin: 08/06/20 08:24 Dose: 50 mg Documented by: Metoprolol Tartrate (Lopressor) 2.5 mg IVPUSH ONETIME ONE Stop: 08/05/20 08:13 Last Admin: 08/05/20 17:45 Dose: 2.5 mg Documented by: Metoprolol Tartrate (Lopressor) 75 mg PO BIDMEALS [facility] Last Admin: 08/11/20 17:36 Dose: 75 mg Documented by: Metoprolol Tartrate (Lopressor) 25 mg PO ONETIME ONE Stop: 08/06/20 09:31 Last Admin: 08/06/20 09:31 Dose: 25 mg Documented by: Non-Formulary Medication (Docusate Sodium [Colace]) 150 mg PO DAILY [facility] Potassium Chloride (Klor-Con M20) 40 meq PO ONETIME ONE Stop: 08/06/20 11:01 Last Admin: 08/06/20 11:58 Dose: 40 meq Documented by: - Exam Quality Assessment: DVT Prophylaxis (eliquis). No: Supplemental Oxygen General: Alert, Oriented, Cooperative, No Acute Distress HEENT: Pupils Equal, Pupils Reactive, Mucous Membr. Moist/Maloy Lungs: Clear to Auscultation, Normal Respiratory Effort Cardiovascular: Regular Rate, Regular Rhythm, No Murmurs GI/Abdominal Exam: Normal Bowel Sounds, Soft, Non-Tender, No Distention (Female) Exam: Deferred Back Exam: Normal Inspection, Full Range of Motion Extremities: Normal Inspection, Normal Range of Motion, Non-Tender, No Pedal Edema, Normal Capillary Refill Peripheral Pulses: 2+: Radial (L), Radial (R), Dorsalis Pedis (L), Dorsalis Pedis (R) Skin: Warm, Dry, Intact Neurological: No New Focal Deficit Psy/Mental Status: Alert, Normal Affect, Normal Mood Sepsis Event Note - Evaluation Sepsis Screening Result: No Definite Risk - Focused Exam Vital Signs: Vital Signs Temp Pulse Resp BP BP Pulse Ox 08/14/20 09:15 68 140/70 08/14/20 09:09 140/70 08/14/20 04:00 97.7 F 14 133/65 92 L - Problem List & Annotations (1) Pneumonia due to 2019 novel coronavirus SNOMED Code(s): 329990458046743782 Code(s): U07.1 - COVID-19; J12.89 - OTHER VIRAL PNEUMONIA Status: Acute Priority: High Current Visit: Yes (2) Acute hypoxemic respiratory failure SNOMED Code(s): 264488510 Code(s): J96.01 - ACUTE RESPIRATORY FAILURE WITH HYPOXIA Status: Acute Priority: High Current Visit: Yes (3) HTN (hypertension) SNOMED Code(s): 99228297 Code(s): I10 - ESSENTIAL (PRIMARY) HYPERTENSION Status: Chronic Priority: Low Current Visit: No Qualifiers: Hypertension type: essential hypertension Qualified Code(s): I10 - Essential (primary) hypertension (4) Hyponatremia SNOMED Code(s): 19071883 Code(s): E87.1 - HYPO-OSMOLALITY AND HYPONATREMIA Status: Acute Priority: High Current Visit: Yes (5) Congestive heart failure (CHF) SNOMED Code(s): 95803029 Code(s): I50.9 - HEART FAILURE, UNSPECIFIED Status: Acute Priority: High Current Visit: Yes Qualifiers: Heart failure type: unspecified Heart failure chronicity: unspecified Qualified Code(s): I50.9 - Heart failure, unspecified (6) Essential tremor SNOMED Code(s): 531637026 Code(s): G25.0 - ESSENTIAL TREMOR Status: Chronic Priority: Medium Current Visit: Yes - Problem List Review Problem List Initiated/Reviewed/Updated: Yes - My Orders Last 24 Hours: My Active Orders 08/14/20 11:45 Meclizine [Antivert] 25 mg PO Q4HR PRN - Assessment Assessment:: Assessment: Acute: Covid-19 Infection Viral Pneumonitis/Atypical Pneumonia -Completed 2 units of convalescent plasma -5 day course of Veklury -Rocephin and Azithromycin -10 day course of Dexamethasone -Continue IS and FV as directed -She remains on RA New onset A. fib with RVRresolved -Rate is well controlled on metoprolol tartrate 75 mg po BID -Anticoagulate secondary to A. fib with Eliquis -HR is well controlled: 60s-70s HTN -Vital signs every 4 hours -BP Meds: Metoprolol tartrate 75 mg po BID, Aldactone 25 mg po daily, Losartan 50 mg po BID, Norvasc 10 mg po daily, and PRN Lasix 20 mg po daily -Blood pressure is adequately controlled Hypo-osmolar hyponatremia, stable -She is not symptomatic -Na now at 133 -On Lasix 20 mg daily as needed -Continue fluid restriction to 1500 ml daily -Continue to monitor intake and output every 8 hours Congestive heart failure (CHF) with Preserved EF -Elevated proBNP of 799 -Has likely pulmonary HTN -2D echo shows normal EF 60-65%. No RWMA. Moderate calcification and thickening of mitral leaflets. Moderate-Severe RVSP at 62.7 mmHg -Continue Lasix and Aldactone -1.5 L for fluid restriction and AHA diet -Follow-up chest x-ray 08/13/2020 read as nothing acute seen Leukocytosis, POA, improving -Likely from underlying infection but also on steroids -Will monitor Mild Hypochloremia with Cl, 93, POA, resolved Hyperglycemia, POA, resolved -Likely due to steroid and now on steroids -Carries no hx/o diabetes or glucose intolerance -We will monitor Elevated CRP level of 28.4, POA, improved -Most recent level of 3.4 -Likely 2/2 underlying infection Hypoalbuminemia, POA -Albumin of 2.8; now 2.3 -Tribal Judge following Macrocytic Normochromic Anemia with Hgb of 10.3, stable Chronic: Impaired Vision and Hearing HTN HLD Hx/o CT CAD S/p stents placement Asthma HIWOT Chronic Constipation Recurrent UTI OA Hx/o esophageal cancer Hx/o Splenectomy Anxiety ET - Plan Plan:: 08/04/20 * 85-year-old female with gradual onset weakness, cough, decreased appetite, fever chills and diaphoresis that started about a week ago. Has been exposed to COVID-19 about 2 weeks ago at a . * Presented to the emergency department and was hypoxemic at 86% on room air. * Initial vital signs in the emergency department reveal a temp of 37.3 Celsius, pulse 84, respiratory rate 20, pressure 170/68, pulse ox 91% on 2 L of oxygen per nasal cannula * Labs in the ED revealed WBC 14.19, sodium 126, potassium 4.1, BUN 8, creatinine 0.6, GFR greater than 60, lactic acid 1.4, LDH 221, troponin I 0.019, C-reactive protein 18.7, D-dimer 1.03, ferritin 142, proBNP 2163, she is Covid positive, urinalysis is unremarkable for infection. Sets of blood cultures were also collected in the emergency department. * Portable chest x-ray reveals a mild increase in interstitial lung markings bilaterally. There is a nodule airspace opacity within the right midlung zone. Findings suggest a pneumonic infiltrate. Consider atypical viral etiology. Pleural spaces otherwise unremarkable with no pleural effusion or pneumothorax. Heart size is mildly prominent. 08/05/2020 * New onset atrial fibrillation with RVR overnight. Stabilized with IV metoprolol and oral metoprolol. * Patient did have some chest pain with the chest pain and her troponin increased slightly to 0.06 * Patient's chest pain when I examined was mostly in her abdomen. This did resolve with resolution of her A. fib RVR. * Patient continues to have hyponatremia 129, white count is elevated at 15.1 likely secondary to inflammation, hypokalemia with potassium of 3.2 and worsening of her proBNP at 3894. * Procalcitonin is less than 0.05. This makes it unlikely that her white count is secondary to significant bacterial infection. PLAN: Pneumonia due to 2019 novel coronavirus, Acute hypoxemic respiratory failure * Convalescent plasma 2 units today. I spoke with the patient to provide information about convalescent plasma for herself. I offered her the fax sheet for patients and caregivers for COVID-19 convalescent plasma to read and review. I stated the therapy has been approved by an emergency youth authorization process and has not fully been FDA reviewed or approved. I shared potential risks from the therapy including transmission of blood-borne pathogen such as HIV and hepatitis C, allergic and transfusion related reactions, post transfusion purpura. Additionally theoretical risks including a phenomenon called antibodydependent enhancement of infection such as seen in dengue or attenuation of an immune response that may make patients more susceptible to reinfection. I discussed there are other potential treatment options that are currently not FDA approved to treat COVID-19. Offered opportunity to ask questions and all questions were answered. The patient voiced understanding and agreed to proceed with treatment for herself. * Remdesivir 200 mg IV x1 dose then 100 mg daily x4 more doses. * Dexamethasone 6 mg p.o. daily x10 days * Rocephin 2 g daily x5 days * Zithromax 500 mg IV daily x3 days * Incentive spirometer and flutter valve every hour while awake 08/06/20 New onset A. fib with RVR * Rate is still not controlled on current dose of metoprolol. Increase metoprolol to 75 mg by mouth twice daily. * Anticoagulate secondary to A. fib with Eliquis HTN (hypertension) * Vital signs every 4 hours * Readjust antihypertensives based on blood pressure and adjustment of metoprolol Hyponatremia * Restart Lasix in the morning 20 mg daily as needed * 1500 mL fluid restriction every 24 hours * Monitor intake and output every 8 hours Congestive heart failure (CHF) * Furosemide 40mg IV x 1 dose today. * Follow-up chest x-rays as needed * Echocardiogram pending Ricci for stroke and DVT prophylaxis Patient is a DNR/DNI PT OT to eval and treat Dietitian consult regarding patient's caloric needs director of creative services and case management for discharge planning Respiratory therapy to titrate oxygen to keep O2 saturations between 88 and 94% Change patient to MedSurg status with telemetry and continuous pulse oximetry. Discontinue Adkins catheter, but maintain strict VIJAYA and daily weight Patient will be here greater than 96 hours due to the standard 5-day treatment course for Covid 08/07/20 New onset A. fib with RVR * Rate is well controlled on metoprolol * Anticoagulate secondary to A. fib with Eliquis HTN (hypertension) * Vital signs every 4 hours * Readjust antihypertensives based on blood pressure and adjustment of metoprolol * Start chlorthalidone 12.5 mg daily Hyponatremia * Restart Lasix in the morning 20 mg daily as needed * 1500 mL fluid restriction every 24 hours * Monitor intake and output every 8 hours * Sodium 129 today. Upon further investigation and patient's previous hospital visits, this is a chronic issue. Will have patient's primary physician follow-up regarding this as patient is asymptomatic. Congestive heart failure (CHF) * Follow-up chest x-rays as needed * Lasix 20 mg daily as needed 08/08/2020 New onset A. fib with RVRstable * Rate is well controlled on metoprolol * Anticoagulate secondary to A. fib with Eliquis HTN (hypertension) * Vital signs every 4 hours * Readjust antihypertensives based on blood pressure and adjustment of metoprolol * Chlorthalidone was held secondary to hyponatremia * Norvasc restarted at a lower dose of 5 mg daily Hyponatremia * Lasix in the morning 20 mg daily as needed * 1500 mL fluid restriction every 24 hours * Monitor intake and output every 8 hours * Sodium 131 today. Upon further investigation and patient's previous hospital visits, this is a chronic issue. Will have patient's primary physician follow-up regarding this as patient is asymptomatic. Congestive heart failure (CHF) * Follow-up chest x-rays as needed * Lasix 20 mg daily as needed 08/09/2020 New onset A. fib with RVRstable * Rate is well controlled on metoprolol * Anticoagulate secondary to A. fib with Eliquis HTN (hypertension) * Vital signs every 4 hours * Readjust antihypertensives based on blood pressure and adjustment of metoprolol * Chlorthalidone was held secondary to hyponatremia * Norvasc restarted at a lower dose of 5 mg at bedtime Hyponatremia * Lasix in the morning 20 mg daily as needed * 1500 mL fluid restriction every 24 hours * Monitor intake and output every 8 hours * Sodium 133improvedtoday. Upon further investigation and patient's previous hospital visits, this is a chronic issue. Will have patient's primary physician follow-up regarding this as patient is asymptomatic. Congestive heart failure (CHF) * Follow-up chest x-rays as needed * Lasix 20 mg daily as needed 08/10/2020 New onset A. fib with RVRstable * Rate is well controlled on metoprolol * Anticoagulate secondary to A. fib with Eliquis HTN (hypertension) * Vital signs every 4 hours * Readjust antihypertensives based on blood pressure and adjustment of metoprolol * Chlorthalidone was held secondary to hyponatremia * Norvasc restarted at a lower dose of 5 mg at bedtime * Blood pressure is adequately treated Hyponatremia * Lasix 20 mg daily as needed * Increase fluid restriction to 2000 mL * Monitor intake and output every 8 hours * Recheck labs in the morning. Congestive heart failure (CHF) * Follow-up chest x-rays as needed * Lasix 20 mg daily as needed * Continue metoprolol Eliquis for stroke and DVT prophylaxis Patient is a DNR/DNI PT OT to eval and treat director of creative services and case management for discharge planning patient has agreed to go to [facility] upon discharge. Respiratory therapy to titrate oxygen to keep O2 saturations between 88 and 94% Patient will be here greater than 96 hours due to the standard 5-day treatment course for Covid 08/11/2020 New onset A. fib with RVRstable * Rate is well controlled on metoprolol * Anticoagulate secondary to A. fib with Eliquis HTN (hypertension) * Vital signs every 4 hours * Readjust antihypertensives based on blood pressure and adjustment of metoprolol * Norvasc raised to 10 mg daily. This is her home dose. * Blood pressure is adequately treated Hyponatremia * Lasix 20 mg daily as needed * Increase fluid restriction to 2000 mL * Monitor intake and output every 8 hours Congestive heart failure (CHF) * Follow-up chest x-rays as needed * Lasix 20 mg daily as needed * Continue metoprolol Eliquis for stroke and DVT prophylaxis Patient is a DNR/DNI PT OT to eval and treat director of creative services and case management for discharge planning patient has agreed to go to [facility] upon discharge. Awaiting acceptance to care home. Respiratory therapy to titrate oxygen to keep O2 saturations between 88 and 94% Patient will be here greater than 96 hours due to the standard 5-day treatment course for Covid 08/12/2020 Continue steroid therapy Routine AM Labs Encourage to ambulate inside her room as much as she can IS and FV as directed Fluid restriction to 1500 ml daily Chest x-ray in AM Tribal Judge following PT/OT to assess and treat She is being evaluated by [facility] [place] LOS> 96hrs and pending placement due to new rules/protocol for covid-patient care home placement 08/13/2020 Continue steroid therapy Routine AM Labs Encourage to ambulate inside her room as much as she can IS and FV as directed Continue Fluid restriction to 1500 ml daily Trib[employer] Judge following PT/OT to assess and treat Discharge to [facility] this Tuesday per 08/14/2020 Completed 10 day course of Dexamethasone Routine AM Labs Encourage to ambulate inside her room as much as she can IS and FV as directed Continue Fluid restriction to 1500 ml daily Tribal Judge following PT/OT to assess and treat Discharge to [facility] this Tuesday @ 1300 per SW
[2020-08-14] MEDS: Benzonatate 100 MG Cap PO PRN (12:26)
[2020-08-14] MEDS: Albuterol 6.7 GM Inhaler INH PRN ×2 (13:39→22:09)
[2020-08-14] MEDS: Gabapentin 300 MG Cap PO SCH (21:03)
[2020-08-14] MEDS: amLODIPine 10 MG Tab PO SCH (21:07)
[2020-08-14] MEDS: ALPRAZolam 0.25 MG Tab PO PRN (21:08)
[2020-08-14] MEDS: LOVASTATIN 80 MG PO SCH (21:09)
[2020-08-14] MEDS: Codeine/Promethazine 10-6.25 MG/5 ML Syrup 5 ML UD Cup PO PRN (21:13)
[2020-08-15] MEDS: Codeine/guaiFENesin 10-100 MG/5 ML Syrup 5 ML Cup PO PRN (00:49)
[2020-08-15] MEDS: Acetaminophen 325 MG Tab PO PRN (04:51)
[2020-08-15] MEDS: Benzocaine/Cetylpyridinium/Menthol Lozenge MUCMEM PRN (04:52)
[2020-08-15] MEDS: Metoprolol Tartrate 25 MG Tab PO SCH ×2 (08:45→20:23)
[2020-08-15] MEDS: Primidone 50 MG Tab PO SCH ×2 (08:45→20:22)
[2020-08-15] MEDS: Spironolactone 25 MG Tab PO SCH (08:48)
[2020-08-15] MEDS: Cholecalciferol (Vitamin D3) 25 MCG Tab PO SCH (08:49)
[2020-08-15] MEDS: Aspirin 81 MG Tab.EC PO SCH (08:49)
[2020-08-15] MEDS: Apixaban 5 MG Tab PO SCH ×2 (08:52→20:24)
[2020-08-15] MEDS: Ezetimibe 10 MG Tab PO SCH (08:53)
[2020-08-15] MEDS: Zinc Sulfate 220 MG Cap PO SCH (08:54)
[2020-08-15] MEDS: guaiFENesin 600 MG Tab.ER PO SCH ×3 (08:54→20:31)
[2020-08-15] MEDS: Losartan 25 MG Tab PO SCH ×2 (08:56→20:24)
[2020-08-15] MEDS: Fluticasone Propionate Nasal Spray 16 GM Bottle NAS SCH ×2 (08:57→20:51)
[2020-08-15] MEDS: Lidocaine 4% 1 each Patch TOP SCH (08:58)
--- NOTE | 2020-08-15 11:33 | PCM.PN ---
- General Info Date of Service: 08/15/20 Admission Dx/Problem (Free Text): Admission Diagnosis/Problem Admission Diagnosis/Problem Weakness Subjective Update: In to see Delores. She reports she feels much worse today. Nursing states patient had a coughing fit last night and this has continued into today. WBC is elevated at 24.15. This is likely 2/2 steroid use due to covid-19 infection but concern remains for secondary bacterial infection. CXR ordered today. CRP increased to 7.2 today. Will order pro-calcitonin from today's labs. Plan was to discharge to SNF today. Will now hold off until Tuesday as this is the soonest they will admit given the weekend. Functional Status: Reports: Pain Controlled, Tolerating Diet, Ambulating, Urinating, Incentive Spirometry, Other (Acapella ). Denies: New Symptoms - Review of Systems General: Reports: Weakness. Denies: Fever, Fatigue, Malaise, Chills HEENT: Reports: No Symptoms. Denies: Headaches, Sore Throat Pulmonary: Reports: No Symptoms, Shortness of Breath, Cough. Denies: Pleuritic Chest Pain, Sputum, Wheezing Cardiovascular: Reports: No Symptoms, Dyspnea on Exertion. Denies: Chest Pain, Palpitations Gastrointestinal: Reports: No Symptoms. Denies: Abdominal Pain, Constipation, Diarrhea, Nausea, Vomiting Genitourinary: Reports: No Symptoms. Denies: Pain Musculoskeletal: Reports: Other (generalized myalgias ) Skin: Reports: No Symptoms. Denies: Cyanosis Neurological: Reports: No Symptoms, Weakness. Denies: Confusion Psychiatric: Reports: No Symptoms - Patient Data Vitals - Most Recent: Last Vital Signs Temp 98.5 F 08/15/20 10:00 Pulse 77 08/15/20 10:00 Resp 18 08/15/20 10:00 BP 117/49 L 08/15/20 10:00 Pulse Ox 93 L 08/15/20 10:00 Weight - Most Recent: 134 lb 7.712 oz I&O - Last 24 Hours: Intake & Output 08/14/20 08/15/20 08/15/20 22:59 06:59 14:59 Intake Total 920 60 Balance 920 60 Lab Results Last 24 Hours: Laboratory Results - last 24 hr 08/15/20 08/15/20 08/15/20 Range/Units 05:27 05:27 05:27 WBC 24.15 H (3.98-10.04) K/mm3 RBC 3.51 L (3.98-5.22) M/mm3 Hgb 11.0 L (11.2-15.7) gm/dl Hct 33.7 L (34.1-44.9) % MCV 96.0 H (79.4-94.8) fl MCH 31.3 (25.6-32.2) pg MCHC 32.6 (32.2-35.5) g/dl RDW Std Deviation 49.9 H (36.4-46.3) fL Plt Count 368 (182-369) K/mm3 MPV 10.2 (9.4-12.3) fl Neut % (Auto) 32.1 L (34.0-71.1) % Lymph % (Auto) 13.3 L (19.3-51.7) % [place] % (Auto) 53.2 H (4.7-12.5) % Eos % (Auto) 0.4 L (0.7-5.8) Baso % (Auto) 0.1 (0.1-1.2) % Neut # (Auto) 7.76 H (1.56-6.13) K/mm3 Lymph # (Auto) 3.21 (1.18-3.74) K/mm3 [place] # (Auto) 12.84 H (0.24-0.36) K/mm3 Eos # (Auto) 0.10 (0.04-0.36) K/mm3 Baso # (Auto) 0.03 (0.01-0.08) K/mm3 Manual Slide Review Abnormal smear Sodium 131 L (136-145) mEq/L Potassium 4.4 (3.5-5.1) mEq/L Chloride 96 L (98-107) mEq/L Carbon Dioxide 28 (21-32) mEq/L Anion Gap 11.4 (5-15) BUN 26 H (7-18) mg/dL Creatinine 0.8 (0.55-1.02) mg/dL Est Cr Clr Drug Dosing 36.26 mL/min Estimated GFR (MDRD) > 60 (>60) mL/min BUN/Creatinine Ratio 32.5 H (14-18) Glucose 115 (83-115) mg/dL Lactic Acid (0.4-2.0) mmol/L Calcium 8.4 L (8.5-10.1) mg/dL C-Reactive Protein 7.2 H* (<1.0) mg/dL 08/15/20 Range/Units 06:55 WBC (3.98-10.04) K/mm3 RBC (3.98-5.22) M/mm3 Hgb (11.2-15.7) gm/dl Hct (34.1-44.9) % MCV (79.4-94.8) fl MCH (25.6-32.2) pg MCHC (32.2-35.5) g/dl RDW Std Deviation (36.4-46.3) fL Plt Count (182-369) K/mm3 MPV (9.4-12.3) fl Neut % (Auto) (34.0-71.1) % Lymph % (Auto) (19.3-51.7) % [place] % (Auto) (4.7-12.5) % Eos % (Auto) (0.7-5.8) Baso % (Auto) (0.1-1.2) % Neut # (Auto) (1.56-6.13) K/mm3 Lymph # (Auto) (1.18-3.74) K/mm3 [place] # (Auto) (0.24-0.36) K/mm3 Eos # (Auto) (0.04-0.36) K/mm3 Baso # (Auto) (0.01-0.08) K/mm3 Manual Slide Review Sodium (136-145) mEq/L Potassium (3.5-5.1) mEq/L Chloride (98-107) mEq/L Carbon Dioxide (21-32) mEq/L Anion Gap (5-15) BUN (7-18) mg/dL Creatinine (0.55-1.02) mg/dL Est Cr Clr Drug Dosing mL/min Estimated GFR (MDRD) (>60) mL/min BUN/Creatinine Ratio (14-18) Glucose (83-115) mg/dL Lactic Acid 0.7 (0.4-2.0) mmol/L Calcium (8.5-10.1) mg/dL C-Reactive Protein (<1.0) mg/dL Med Orders - Current: Current Medications Acetaminophen (Tylenol) 650 mg PO Q4H PRN PRN Reason: Pain (Mild 1-3)/fever Last Admin: 08/15/20 04:51 Dose: 650 mg Documented by: Albuterol (Proventil Neb Soln) 2.5 mg NEB Q2H PRN PRN Reason: Shortness Of Breath/wheezing Albuterol (Proventil Hfa) 2 gm INH Q4H PRN PRN Reason: SOB/Cough Last Admin: 08/14/20 22:09 Dose: 2 puff Documented by: Alprazolam (Xanax) 0.25 mg PO Q12H PRN PRN Reason: Anxiety Last Admin: 08/14/20 21:08 Dose: 0.25 mg Documented by: Amlodipine Besylate (Norvasc) 10 mg PO BEDTIME [facility] Last Admin: 08/14/20 21:07 Dose: 10 mg Documented by: Apixaban (Eliquis) 5 mg PO BID [facility] Last Admin: 08/15/20 08:52 Dose: 5 mg Documented by: Aspirin (Halfprin) 81 mg PO DAILY [facility] Last Admin: 08/15/20 08:49 Dose: 81 mg Documented by: Benzocaine/Menthol (Cepacol Sore Throat) 1 lozenge MUCMEM ASDIRECTED PRN PRN Reason: Cough Last Admin: 08/15/20 04:52 Dose: 1 lozenge Documented by: Benzonatate (Tessalon Perles) 200 mg PO QID PRN PRN Reason: Cough Last Admin: 08/14/20 12:26 Dose: 200 mg Documented by: Calcium Carbonate/Glycine (Tums) 1,000 mg PO Q2H PRN PRN Reason: Indigestion Last Admin: 08/12/20 10:47 Dose: 1,000 mg Documented by: Cholecalciferol (Vitamin D3) 25 mcg PO DAILY [facility] Last Admin: 08/15/20 08:49 Dose: 25 mcg Documented by: Docusate Sodium (Colace) 100 mg PO BID PRN PRN Reason: Constipation Last Admin: 08/13/20 14:54 Dose: 100 mg Documented by: Ezetimibe (Zetia) 10 mg PO DAILY [facility] Last Admin: 08/15/20 08:53 Dose: 10 mg Documented by: Fluticasone Propionate (Flonase) 0 gm LINDA BID [facility] Last Admin: 08/15/20 08:57 Dose: 1 spray Documented by: Furosemide (Lasix) 20 mg PO DAILY PRN PRN Reason: Edema Gabapentin (Neurontin) 300 mg PO BEDTIME [facility] Last Admin: 08/14/20 21:03 Dose: 300 mg Documented by: Guaifenesin (Mucinex) 600 mg PO TID [facility] Last Admin: 08/15/20 08:54 Dose: 600 mg Documented by: Guaifenesin/Codeine Phosphate (Robitussin Ac) 5 ml PO Q4H PRN PRN Reason: Cough Last Admin: 08/15/20 00:49 Dose: 5 ml Documented by: Diltiazem HCl 100 mg/ Sodium (Chloride) 100 mls @ 5 mls/hr IV TITRATE [facility]; Protocol Last Titration: 08/05/20 08:00 Dose: 0 mg/hr, 0 mls/hr Documented by: Lidocaine (Aspercreme 4%) 1 each TOP DAILY [facility] Last Admin: 08/15/20 08:58 Dose: 1 each Documented by: Losartan Potassium (Cozaar) 50 mg PO BID [facility] Last Admin: 08/15/20 08:56 Dose: 50 mg Documented by: Magnesium Hydroxide (Milk Of Magnesia) 30 ml PO Q4H PRN PRN Reason: Constipation Last Admin: 08/12/20 20:52 Dose: 30 ml Documented by: Meclizine HCl (Antivert) 25 mg PO Q6H PRN PRN Reason: Dizziness Last Admin: 08/14/20 12:26 Dose: 25 mg Documented by: Metoprolol Tartrate (Lopressor) 75 mg PO BID [facility] Last Admin: 08/15/20 08:45 Dose: 75 mg Documented by: Miscellaneous Information (Remove Patch) 1 ea TRDERM BEDTIME [facility] Last Admin: 08/14/20 21:09 Dose: 1 ea Documented by: Nitroglycerin (Nitrostat) 0.4 mg SL ASDIRECTED PRN PRN Reason: Chest Pain Lovastatin 80 Mg (Ptom) 80 mg PO BEDTIME [facility] Last Admin: 08/14/20 21:09 Dose: Not Given Documented by: Ondansetron HCl (Zofran) 4 mg IV Q4H PRN PRN Reason: Nausea/Vomiting Primidone (Mysoline) 300 mg PO BID [facility] Last Admin: 08/15/20 08:45 Dose: 300 mg Documented by: Promethazine HCl/Codeine (Phenergan With Codeine) 5 ml PO Q4HR PRN PRN Reason: Cough Last Admin: 08/14/20 21:13 Dose: 5 ml Documented by: Sodium Chloride (Saline Flush) 10 ml FLUSH ASDIRECTED PRN PRN Reason: Keep Vein Open Spironolactone (Aldactone) 25 mg PO DAILY [facility] Last Admin: 08/15/20 08:48 Dose: 25 mg Documented by: Zinc Sulfate (Zincate) 220 mg PO DAILY [facility] Last Admin: 08/15/20 08:54 Dose: 220 mg Documented by: Discontinued Medications Acetaminophen (Tylenol) 975 mg PO ONETIME ONE Stop: 08/04/20 10:01 Last Admin: 08/04/20 10:52 Dose: 975 mg Documented by: Al Hydroxide/Mg Hydroxide (Mag-Al Plus) 30 ml PO Q4H PRN PRN Reason: Heartburn Stop: 08/07/20 04:13 Last Admin: 08/05/20 04:23 Dose: 30 ml Documented by: Amlodipine Besylate (Norvasc) 5 mg PO BEDTIME [facility] Last Admin: 08/08/20 21:01 Dose: 5 mg Documented by: Amlodipine Besylate (Norvasc) 5 mg PO ONETIME ONE Stop: 08/09/20 17:13 Last Admin: 08/10/20 08:45 Dose: Not Given Documented by: Amlodipine Besylate (Norvasc) 10 mg PO BEDTIME [facility] Amlodipine Besylate (Norvasc) 5 mg PO BEDTIME [facility] Last Admin: 08/10/20 20:18 Dose: 5 mg Documented by: Amlodipine Besylate (Norvasc) 10 mg PO DAILY [facility] Chlorthalidone (Chlorthalidone) 12.5 mg PO DAILY [facility] Last Admin: 08/07/20 16:41 Dose: Not Given Documented by: Dexamethasone (Dexamethasone) 6 mg PO Q24H [facility] Stop: 08/13/20 16:01 Last Admin: 08/13/20 16:02 Dose: 6 mg Documented by: Diltiazem HCl (Cardizem) 10 mg IVPUSH ONETIME ONE Stop: 08/05/20 03:24 Last Admin: 08/05/20 03:34 Dose: 10 mg Documented by: Diltiazem HCl (Cardizem) 10 mg IVPUSH ONETIME ONE Stop: 08/05/20 04:05 Last Admin: 08/05/20 04:11 Dose: 10 mg Documented by: Enoxaparin Sodium (Lovenox) 30 mg SUBCUT Q12H [facility] Last Admin: 08/04/20 16:56 Dose: 30 mg Documented by: Enoxaparin Sodium (Lovenox) 30 mg SUBCUT Q12H [facility] Last Admin: 08/05/20 17:33 Dose: 30 mg Documented by: Famotidine (Pepcid) 20 mg IVPUSH ONETIME ONE Stop: 08/05/20 09:01 Last Admin: 08/05/20 09:43 Dose: Not Given Documented by: Furosemide (Lasix) 40 mg IVPUSH NOW [facility] Stop: 08/04/20 17:00 Furosemide (Lasix) 20 mg IVPUSH ONETIME ONE Stop: 08/04/20 22:01 Last Admin: 08/04/20 22:43 Dose: 20 mg Documented by: Furosemide (Lasix) 40 mg IVPUSH NOW ONE Stop: 08/06/20 14:16 Last Admin: 08/06/20 14:29 Dose: 40 mg Documented by: Dextrose/Sodium Chloride (Dextrose 5%-Normal Saline) 1,000 mls @ 150 mls/hr IV ASDIRECTED [facility] Last Admin: 08/04/20 10:51 Dose: 150 mls/hr Documented by: Remdesivir 200 mg/ Sodium (Chloride) 250 mls @ 250 mls/hr IV ONETIME ONE Stop: 08/04/20 14:33 Last Admin: 08/04/20 16:54 Dose: 250 mls/hr Documented by: Remdesivir 100 mg/ Sodium (Chloride) 100 mls @ 100 mls/hr IV Q24H [facility] Stop: 08/08/20 16:59 Last Admin: 08/08/20 15:31 Dose: 100 mls/hr Documented by: Azithromycin 500 mg/ Sodium (Chloride) 250 mls @ 250 mls/hr IV Q24H [facility] Stop: 08/06/20 17:59 Last Admin: 08/06/20 16:58 Dose: 250 mls/hr Documented by: Ceftriaxone Sodium 2 gm/ (Sodium Chloride) 100 mls @ 200 mls/hr IV Q24H [facility] Stop: 08/08/20 18:29 Last Admin: 08/08/20 17:36 Dose: 200 mls/hr Documented by: Sodium Chloride (Normal Saline) Confirm Administered Dose 250 mls @ as directed .ROUTE .STK-MED ONE Stop: 08/04/20 20:59 Last Admin: 08/04/20 21:14 Dose: 50 mls/hr Documented by: Potassium Chloride 10 meq/ (Premix) 100 mls @ 100 mls/hr IV Q1H [facility] Stop: 08/05/20 12:59 Last Admin: 08/05/20 12:51 Dose: 100 mls/hr Documented by: Magnesium Hydroxide (Milk Of Magnesia) 30 ml PO ONETIME ONE Stop: 08/13/20 09:48 Last Admin: 08/13/20 09:56 Dose: 30 ml Documented by: Metoprolol Tartrate (Lopressor) 2.5 mg IVPUSH ONETIME ONE Stop: 08/05/20 07:47 Last Admin: 08/05/20 07:56 Dose: 2.5 mg Documented by: Metoprolol Tartrate (Lopressor) 50 mg PO BIDMEALS [facility] Last Admin: 08/06/20 08:24 Dose: 50 mg Documented by: Metoprolol Tartrate (Lopressor) 2.5 mg IVPUSH ONETIME ONE Stop: 08/05/20 08:13 Last Admin: 08/05/20 17:45 Dose: 2.5 mg Documented by: Metoprolol Tartrate (Lopressor) 75 mg PO BIDMEALS [facility] Last Admin: 08/11/20 17:36 Dose: 75 mg Documented by: Metoprolol Tartrate (Lopressor) 25 mg PO ONETIME ONE Stop: 08/06/20 09:31 Last Admin: 08/06/20 09:31 Dose: 25 mg Documented by: Non-Formulary Medication (Docusate Sodium [Colace]) 150 mg PO DAILY [facility] Potassium Chloride (Klor-Con M20) 40 meq PO ONETIME ONE Stop: 08/06/20 11:01 Last Admin: 08/06/20 11:58 Dose: 40 meq Documented by: - Exam Quality Assessment: DVT Prophylaxis. No: Supplemental Oxygen General: Alert, Oriented, Cooperative, No Acute Distress HEENT: Pupils Equal, Pupils Reactive, Mucous Membr. Moist/[place] Neck: Supple, Trachea Midline Lungs: Normal Respiratory Effort, Decreased Breath Sounds Cardiovascular: Regular Rate, Regular Rhythm GI/Abdominal Exam: Normal Bowel Sounds, Soft, Non-Tender, No Distention (Female) Exam: Deferred Back Exam: Normal Inspection, Full Range of Motion Extremities: Normal Inspection, Normal Range of Motion, Non-Tender, No Pedal Edema, Normal Capillary Refill Skin: Warm, Dry, Intact Neurological: No New Focal Deficit Psy/Mental Status: Alert Sepsis Event Note - Evaluation Sepsis Screening Result: Sepsis Risk - Focused Exam Vital Signs: Vital Signs Temp Temp Pulse Pulse Resp BP BP 08/15/20 10:00 98.5 F 77 18 117/49 L 08/15/20 08:56 117/49 L 08/15/20 08:45 86 117/49 L 08/15/20 06:29 08/15/20 04:51 99.0 F 08/15/20 04:00 99.0 F 15 BP Pulse Ox Pulse Ox 08/15/20 10:00 93 L 08/15/20 08:56 08/15/20 08:45 08/15/20 06:29 90 L 08/15/20 04:51 08/15/20 04:00 131/57 L 90 L - Problem List & Annotations (1) Acute hypoxemic respiratory failure SNOMED Code(s): 106511752 Code(s): J96.01 - ACUTE RESPIRATORY FAILURE WITH HYPOXIA Status: Acute Priority: High Current Visit: Yes (2) Atrial fibrillation with rapid ventricular response SNOMED Code(s): 227409148411706 Code(s): I48.91 - UNSPECIFIED ATRIAL FIBRILLATION Status: Resolved Priority: High Current Visit: Yes (3) COVID-19 determined by clinical diagnostic criteria SNOMED Code(s): 731093415, 619893259 Code(s): U07.1 - COVID-19 Status: Acute Priority: High Current Visit: Yes (4) Congestive heart failure (CHF) SNOMED Code(s): 73670524 Code(s): I50.9 - HEART FAILURE, UNSPECIFIED Status: Acute Priority: High Current Visit: Yes Qualifiers: Heart failure type: unspecified Heart failure chronicity: unspecified Qualified Code(s): I50.9 - Heart failure, unspecified (5) Hyponatremia SNOMED Code(s): 79328799 Code(s): E87.1 - HYPO-OSMOLALITY AND HYPONATREMIA Status: Acute Priority: High Current Visit: Yes (6) Hypoxia SNOMED Code(s): 981617107 Code(s): R09.02 - HYPOXEMIA Status: Acute Priority: High Current Visit: Yes (7) Leukocytosis, unspecified SNOMED Code(s): 449066680, 502663166 Code(s): D72.829 - ELEVATED WHITE BLOOD CELL COUNT, UNSPECIFIED Status: Acute Priority: High Current Visit: Yes Qualifiers: Leukocytosis type: monocytosis Qualified Code(s): D72.821 - Monocytosis (symptomatic) (8) New onset atrial fibrillation SNOMED Code(s): 54349039 Code(s): I48.91 - UNSPECIFIED ATRIAL FIBRILLATION Status: Acute Priority: High Current Visit: Yes (9) Pneumonia due to 2019 novel coronavirus SNOMED Code(s): 351382970730237209 Code(s): U07.1 - COVID-19; J12.89 - OTHER VIRAL PNEUMONIA Status: Acute Priority: High Current Visit: Yes (10) Essential tremor SNOMED Code(s): 917806510 Code(s): G25.0 - ESSENTIAL TREMOR Status: Chronic Priority: Medium Current Visit: Yes (11) CAD (coronary artery disease) SNOMED Code(s): 23297024 Code(s): I25.10 - ATHSCL HEART DISEASE OF [place] CORONARY ARTERY W/O ANG PCTRS Status: Chronic Priority: Low Current Visit: No Qualifiers: Coronary Disease-Associated Artery/Lesion type: unspecified vessel or lesion type [place] vs. transplanted heart: unspecified whether [place] or transplanted heart Associated angina: with unspecified angina Qualified Code(s): I25.119 - Atherosclerotic heart disease of [place] coronary artery with unspecified angina pectoris (12) GERD (gastroesophageal reflux disease) SNOMED Code(s): 410108348 Code(s): K21.9 - GASTRO-ESOPHAGEAL REFLUX DISEASE WITHOUT ESOPHAGITIS Status: Chronic Priority: Low Current Visit: No Qualifiers: Esophagitis presence: esophagitis presence not specified Qualified Code(s): K21.9 - Gastro-esophageal reflux disease without esophagitis (13) HTN (hypertension) SNOMED Code(s): 47215458 Code(s): I10 - ESSENTIAL (PRIMARY) HYPERTENSION Status: Chronic Priority: Low Current Visit: No Qualifiers: Hypertension type: essential hypertension Qualified Code(s): I10 - Essential (primary) hypertension (14) Osteoarthritis SNOMED Code(s): 221248795 Code(s): M19.90 - UNSPECIFIED OSTEOARTHRITIS, UNSPECIFIED SITE Status: Chronic Priority: Low Current Visit: No Qualifiers: Osteoarthritis location: unspecified site Osteoarthritis type: unspecified Qualified Code(s): M19.90 - Unspecified osteoarthritis, unspecified site - Problem List Review Problem List Initiated/Reviewed/Updated: Yes - Assessment Assessment:: Assessment: Acute: Covid-19 Infection Viral Pneumonitis/Atypical Pneumonia -Completed 2 units of convalescent plasma -5 day course of Veklury -Rocephin and Azithromycin -10 day course of Dexamethasone -Continue IS and FV as directed -She remains on RA New onset A. fib with RVRresolved -Rate is well controlled on metoprolol tartrate 75 mg po BID -Anticoagulate secondary to A. fib with Eliquis -HR is well controlled: 60s-70s HTN -Vital signs every 4 hours -BP Meds: Metoprolol tartrate 75 mg po BID, Aldactone 25 mg po daily, Losartan 50 mg po BID, Norvasc 10 mg po daily, and PRN Lasix 20 mg po daily -Blood pressure is adequately controlled Hypo-osmolar hyponatremia, stable -She is not symptomatic -Na now at 131 -On Lasix 20 mg daily as needed -Continue fluid restriction to 1500 ml daily -Continue to monitor intake and output every 8 hours Congestive heart failure (CHF) with Preserved EF -Elevated proBNP of 799 -Has likely pulmonary HTN -2D echo shows normal EF 60-65%. No RWMA. Moderate calcification and thickening of mitral leaflets. Moderate-Severe RVSP at 62.7 mmHg -Continue Lasix and Aldactone -1.5 L for fluid restriction and AHA diet -Follow-up chest x-ray 08/13/2020 read as nothing acute seen Leukocytosis, POA, -Likely from underlying infection but also on steroids -Will monitor -Increased today from 13.20 to 24.15 -R/o secondary infection Mild Hypochloremia with Cl, 96, POA, resolved Hyperglycemia, POA, resolved -Likely due to steroid and now on steroids -Carries no hx/o diabetes or glucose intolerance -We will monitor Elevated CRP level of 28.4, POA, improved -Most recent level of 7.2 -Likely 2/2 underlying infection Hypoalbuminemia, POA -Albumin of 2.8; now 2.3 -Roll Tester following Macrocytic Normochromic Anemia with Hgb of 11.0, stable Chronic: Impaired Vision and Hearing HTN HLD Hx/o GA CAD S/p stents placement Asthma HIWOT Chronic Constipation Recurrent UTI OA Hx/o esophageal cancer Hx/o Splenectomy Anxiety ET - Plan Plan:: 08/04/20 * 85-year-old female with gradual onset weakness, cough, decreased appetite, fever chills and diaphoresis that started about a week ago. Has been exposed to COVID-19 about 2 weeks ago at a . * Presented to the emergency department and was hypoxemic at 86% on room air. * Initial vital signs in the emergency department reveal a temp of 37.3 Celsius, pulse 84, respiratory rate 20, pressure 170/68, pulse ox 91% on 2 L of oxygen per nasal cannula * Labs in the ED revealed WBC 14.19, sodium 126, potassium 4.1, BUN 8, creatinine 0.6, GFR greater than 60, lactic acid 1.4, LDH 221, troponin I 0.019, C-reactive protein 18.7, D-dimer 1.03, ferritin 142, proBNP 2163, she is Covid positive, urinalysis is unremarkable for infection. Sets of blood cultures were also collected in the emergency department. * Portable chest x-ray reveals a mild increase in interstitial lung markings bilaterally. There is a nodule airspace opacity within the right midlung zone. Findings suggest a pneumonic infiltrate. Consider atypical viral etiology. Pleural spaces otherwise unremarkable with no pleural effusion or pneumothorax. Heart size is mildly prominent. 08/05/2020 * New onset atrial fibrillation with RVR overnight. Stabilized with IV metoprolol and oral metoprolol. * Patient did have some chest pain with the chest pain and her troponin i ncreased slightly to 0.06 * Patient's chest pain when I examined was mostly in her abdomen. This did resolve with resolution of her A. fib RVR. * Patient continues to have hyponatremia 129, white count is elevated at 15.1 likely secondary to inflammation, hypokalemia with potassium of 3.2 and worsening of her proBNP at 3894. * Procalcitonin is less than 0.05. This makes it unlikely that her white count is secondary to significant bacterial infection. PLAN: Pneumonia due to 2019 novel coronavirus, Acute hypoxemic respiratory failure * Convalescent plasma 2 units today. I spoke with the patient to provide information about convalescent plasma for herself. I offered her the fax sheet for patients and caregivers for COVID-19 convalescent plasma to read and review. I stated the therapy has been approved by an emergency youth authorization process and has not fully been FDA reviewed or approved. I shared potential risks from the therapy including transmission of blood-borne pathogen such as HIV and hepatitis C, allergic and transfusion related reactions, post transfusion purpura. Additionally theoretical risks including a phenomenon called antibodydependent enhancement of infection such as seen in dengue or attenuation of an immune response that may make patients more susceptible to reinfection. I discussed there are other potential treatment options that are currently not FDA approved to treat COVID-19. Offered opportunity to ask questions and all questions were answered. The patient voiced understanding and agreed to proceed with treatment for herself. * Remdesivir 200 mg IV x1 dose then 100 mg daily x4 more doses. * Dexamethasone 6 mg p.o. daily x10 days * Rocephin 2 g daily x5 days * Zithromax 500 mg IV daily x3 days * Incentive spirometer and flutter valve every hour while awake 08/06/20 New onset A. fib with RVR * Rate is still not controlled on current dose of metoprolol. Increase metoprolol to 75 mg by mouth twice daily. * Anticoagulate secondary to A. fib with Eliquis HTN (hypertension) * Vital signs every 4 hours * Readjust antihypertensives based on blood pressure and adjustment of metoprolol Hyponatremia * Restart Lasix in the morning 20 mg daily as needed * 1500 mL fluid restriction every 24 hours * Monitor intake and output every 8 hours Congestive heart failure (CHF) * Furosemide 40mg IV x 1 dose today. * Follow-up chest x-rays as needed * Echocardiogram pending Eliquis for stroke and DVT prophylaxis Patient is a DNR/DNI PT OT to eval and treat Dietitian consult regarding patient's caloric needs director of women's services and case management for discharge planning Respiratory therapy to titrate oxygen to keep O2 saturations between 88 and 94% Change patient to MedSur status with telemetry and continuous pulse oximetry. Discontinue Adkins catheter, but maintain strict VIJAYA and daily weight Patient will be here greater than 96 hours due to the standard 5-day treatment course for Covid 08/07/20 New onset A. fib with RVR * Rate is well controlled on metoprolol * Anticoagulate secondary to A. fib with Eliquis HTN (hypertension) * Vital signs every 4 hours * Readjust antihypertensives based on blood pressure and adjustment of metoprolol * Start chlorthalidone 12.5 mg daily Hyponatremia * Restart Lasix in the morning 20 mg daily as needed * 1500 mL fluid restriction every 24 hours * Monitor intake and output every 8 hours * Sodium 129 today. Upon further investigation and patient's previous hospital visits, this is a chronic issue. Will have patient's primary physician follow-up regarding this as patient is asymptomatic. Congestive heart failure (CHF) * Follow-up chest x-rays as needed * Lasix 20 mg daily as needed 08/08/2020 New onset A. fib with RVRstable * Rate is well controlled on metoprolol * Anticoagulate secondary to A. fib with Eliquis HTN (hypertension) * Vital signs every 4 hours * Readjust antihypertensives based on blood pressure and adjustment of metoprolol * Chlorthalidone was held secondary to hyponatremia * Norvasc restarted at a lower dose of 5 mg daily Hyponatremia * Lasix in the morning 20 mg daily as needed * 1500 mL fluid restriction every 24 hours * Monitor intake and output every 8 hours * Sodium 131 today. Upon further investigation and patient's previous hospital visits, this is a chronic issue. Will have patient's primary physician follow-up regarding this as patient is asymptomatic. Congestive heart failure (CHF) * Follow-up chest x-rays as needed * Lasix 20 mg daily as needed 08/09/2020 New onset A. fib with RVRstable * Rate is well controlled on metoprolol * Anticoagulate secondary to A. fib with Eliquis HTN (hypertension) * Vital signs every 4 hours * Readjust antihypertensives based on blood pressure and adjustment of metoprolol * Chlorthalidone was held secondary to hyponatremia * Norvasc restarted at a lower dose of 5 mg at bedtime Hyponatremia * Lasix in the morning 20 mg daily as needed * 1500 mL fluid restriction every 24 hours * Monitor intake and output every 8 hours * Sodium 133improvedtoday. Upon further investigation and patient's previous hospital visits, this is a chronic issue. Will have patient's primary physician follow-up regarding this as patient is asymptomatic. Congestive heart failure (CHF) * Follow-up chest x-rays as needed * Lasix 20 mg daily as needed 08/10/2020 New onset A. fib with RVRstable * Rate is well controlled on metoprolol * Anticoagulate secondary to A. fib with Eliquis HTN (hypertension) * Vital signs every 4 hours * Readjust antihypertensives based on blood pressure and adjustment of metoprolol * Chlorthalidone was held secondary to hyponatremia * Norvasc restarted at a lower dose of 5 mg at bedtime * Blood pressure is adequately treated Hyponatremia * Lasix 20 mg daily as needed * Increase fluid restriction to 2000 mL * Monitor intake and output every 8 hours * Recheck labs in the morning. Congestive heart failure (CHF) * Follow-up chest x-rays as needed * Lasix 20 mg daily as needed * Continue metoprolol Eliquis for stroke and DVT prophylaxis Patient is a DNR/DNI PT OT to eval and treat director of women's services and case management for discharge planning patient has agreed to go to [facility] upon discharge. Respiratory therapy to titrate oxygen to keep O2 saturations between 88 and 94% Patient will be here greater than 96 hours due to the standard 5-day treatment course for Covid 08/11/2020 New onset A. fib with RVRstable * Rate is well controlled on metoprolol * Anticoagulate secondary to A. fib with Eliquis HTN (hypertension) * Vital signs every 4 hours * Readjust antihypertensives based on blood pressure and adjustment of metoprol ol * Norvasc raised to 10 mg daily. This is her home dose. * Blood pressure is adequately treated Hyponatremia * Lasix 20 mg daily as needed * Increase fluid restriction to 2000 mL * Monitor intake and output every 8 hours Congestive heart failure (CHF) * Follow-up chest x-rays as needed * Lasix 20 mg daily as needed * Continue metoprolol Eliquis for stroke and DVT prophylaxis Patient is a DNR/DNI PT OT to eval and treat director of women's services and case management for discharge planning patient has agreed to go to [facility] upon discharge. [facility] to jail. Respiratory therapy to titrate oxygen to keep O2 saturations between 88 and 94% Patient will be here greater than 96 hours due to the standard 5-day treatment course for Covid 08/12/2020 Continue steroid therapy Routine AM Labs Encourage to ambulate inside her room as much as she can IS and FV as directed Fluid restriction to 1500 ml daily Chest x-ray in AM Roll Tester following PT/OT to assess and treat She is being evaluated by [facility] LOS> 96hrs and pending placement due to new rules/protocol for covid-patient jail placement 08/13/2020 Continue steroid therapy Routine AM Labs Encourage to ambulate inside her room as much as she can IS and FV as directed Continue Fluid restriction to 1500 ml daily Roll Tester following PT/OT to assess and treat Discharge to [facility] this Tuesday per 08/14/2020 Completed 10 day course of Dexamethasone Routine AM Labs Encourage to ambulate inside her room as much as she can IS and FV as directed Continue Fluid restriction to 1500 ml daily Roll Tester following PT/OT to assess and treat Discharge to [facility] this Tuesday @ 1300 per 08/15/2020 Completed COVID-19 treatment Reports she "feels horrible today" - SOB, general myalgias, cough Reports coughing fit last night Continue IS/Acapella Continue fluid restriction Continue PT/OT CXR ordered WBC increased to 24.15 Recheck labs in AM Procalcitonin ordered Monitor need for oxygen Will hold off discharge today to investigate increasing leukocytosis (steroid vs secondary infection) Plan for discharge Tuesday08/18/20
--- NOTE | 2020-08-15 13:42 | CR ---
Chest: Portable view of the chest was obtained. Comparison: Previous chest x-ray of 08/13/20. Findings: Focal density is seen within the left lung base. This represents an interval change from prior exam. Lungs also show slight blunting of the right lateral costophrenic angle compatible with atelectasis or small pleural effusion. Lungs otherwise are clear. Heart size is normal. Upper mediastinum is normal. Scoliosis and scattered degenerative change is seen within the spine. Impression: 1. Focal density within the left lung base. This may represent a small area of pneumonia versus thick area of atelectasis. 2. Slight blunting of the right lateral costophrenic angle either due to a small pleural effusion or atelectasis. Diagnostic code #3
[2020-08-15] MEDS: Codeine/Promethazine 10-6.25 MG/5 ML Syrup 5 ML UD Cup PO PRN (20:21)
[2020-08-15] MEDS: amLODIPine 10 MG Tab PO SCH (20:25)
[2020-08-15] MEDS: Gabapentin 300 MG Cap PO SCH (20:25)
[2020-08-15] MEDS: ALPRAZolam 0.25 MG Tab PO PRN (20:26)
[2020-08-15] MEDS: LOVASTATIN 80 MG PO SCH (20:52)
[2020-08-16] MEDS: Acetaminophen 325 MG Tab PO PRN ×3 (01:12→20:43)
[2020-08-16] MEDS: Codeine/Promethazine 10-6.25 MG/5 ML Syrup 5 ML UD Cup PO PRN (01:13)
--- NOTE | 2020-08-16 08:25 | PCM.PN ---
- General Info Date of Service: 08/16/20 Admission Dx/Problem (Free Text): Admission Diagnosis/Problem Admission Diagnosis/Problem Weakness Functional Status: Reports: Pain Controlled, Tolerating Diet, Ambulating, Urinating, Incentive Spirometry, Other (Acapella ). Denies: New Symptoms - Review of Systems General: Reports: Weakness, Fatigue. Denies: Fever, Malaise, Chills HEENT: Reports: No Symptoms. Denies: Headaches, Sore Throat Pulmonary: Reports: No Symptoms. Denies: Shortness of Breath, Cough, Wheezing Cardiovascular: Reports: Dyspnea on Exertion. Denies: Chest Pain, Palpitations, Edema Gastrointestinal: Reports: No Symptoms. Denies: Abdominal Pain, Constipation, Diarrhea, Nausea, Vomiting Genitourinary: Reports: No Symptoms. Denies: Pain Musculoskeletal: Reports: Other (Generalized myalgias) Skin: Reports: No Symptoms. Denies: Cyanosis Neurological: Reports: Weakness. Denies: Confusion, Numbness, Tingling, Difficulty Walking, Gait Disturbance Psychiatric: Reports: No Symptoms - Patient Data Vitals - Most Recent: Last Vital Signs Temp 97.4 F 08/16/20 04:00 Pulse 70 08/16/20 04:00 Resp 24 H 08/16/20 04:00 BP 93/48 L 08/16/20 04:00 Pulse Ox 85 L 08/16/20 04:00 Weight - Most Recent: 128 lb 1 oz I&O - Last 24 Hours: Intake & Output 08/15/20 08/16/20 08/16/20 22:59 06:59 14:59 Intake Total 260 300 Output Total 0 Balance 260 300 Lab Results Last 24 Hours: Laboratory Results - last 24 hr 08/15/20 08/16/20 08/16/20 Range/Units 05:27 04:46 04:46 WBC 34.33 H (3.98-10.04) K/mm3 RBC 3.29 L (3.98-5.22) M/mm3 Hgb 10.3 L (11.2-15.7) gm/dl Hct 31.6 L (34.1-44.9) % MCV 96.0 H (79.4-94.8) fl MCH 31.3 (25.6-32.2) pg MCHC 32.6 (32.2-35.5) g/dl RDW Std Deviation 49.8 H (36.4-46.3) fL Plt Count 285 D (182-369) K/mm3 MPV 10.0 (9.4-12.3) fl Neut % (Auto) 22.7 L (34.0-71.1) % Lymph % (Auto) 6.9 L (19.3-51.7) % Robertson % (Auto) 69.7 H (4.7-12.5) % Eos % (Auto) 0.1 L (0.7-5.8) Baso % (Auto) 0.1 (0.1-1.2) % Neut # (Auto) 7.81 H (1.56-6.13) K/mm3 Lymph # (Auto) 2.38 (1.18-3.74) K/mm3 Robertson # (Auto) 23.92 H (0.24-0.36) K/mm3 Eos # (Auto) 0.02 L (0.04-0.36) K/mm3 Baso # (Auto) 0.04 (0.01-0.08) K/mm3 Manual Slide Review Abnormal smear Sodium 131 L (136-145) mEq/L Potassium 3.6 (3.5-5.1) mEq/L Chloride 97 L (98-107) mEq/L Carbon Dioxide 27 (21-32) mEq/L Anion Gap 10.6 (5-15) BUN 17 (7-18) mg/dL Creatinine 0.7 (0.55-1.02) mg/dL Est Cr Clr Drug Dosing 41.44 mL/min Estimated GFR (MDRD) > 60 (>60) mL/min BUN/Creatinine Ratio 24.3 H (14-18) Glucose 121 H (83-115) mg/dL Calcium 8.2 L (8.5-10.1) mg/dL Magnesium 2.2 (1.8-2.4) mg/dl C-Reactive Protein 30.4 H* (<1.0) mg/dL Procalcitonin <0.05 ng/mL Med Orders - Current: Current Medications Acetaminophen (Tylenol) 650 mg PO Q4H PRN PRN Reason: Pain (Mild 1-3)/fever Last Admin: 08/16/20 01:12 Dose: 650 mg Documented by: Albuterol (Proventil Neb Soln) 2.5 mg NEB Q2H PRN PRN Reason: Shortness Of Breath/wheezing Albuterol (Proventil Hfa) 2 gm INH Q4H PRN PRN Reason: SOB/Cough Last Admin: 08/14/20 22:09 Dose: 2 puff Documented by: Alprazolam (Xanax) 0.25 mg PO Q12H PRN PRN Reason: Anxiety Last Admin: 08/15/20 20:26 Dose: 0.25 mg Documented by: Amlodipine Besylate (Norvasc) 10 mg PO BEDTIME [facility] Last Admin: 08/15/20 20:25 Dose: 10 mg Documented by: Apixaban (Eliquis) 5 mg PO BID [facility] Last Admin: 08/15/20 20:24 Dose: 5 mg Documented by: Aspirin (Halfprin) 81 mg PO DAILY [facility] Last Admin: 08/15/20 08:49 Dose: 81 mg Documented by: Benzocaine/Menthol (Cepacol Sore Throat) 1 lozenge MUCMEM ASDIRECTED PRN PRN Reason: Cough Last Admin: 08/15/20 04:52 Dose: 1 lozenge Documented by: Benzonatate (Tessalon Perles) 200 mg PO QID PRN PRN Reason: Cough Last Admin: 08/14/20 12:26 Dose: 200 mg Documented by: Calcium Carbonate/Glycine (Tums) 1,000 mg PO Q2H PRN PRN Reason: Indigestion Last Admin: 08/12/20 10:47 Dose: 1,000 mg Documented by: Cholecalciferol (Vitamin D3) 25 mcg PO DAILY [facility] Last Admin: 08/15/20 08:49 Dose: 25 mcg Documented by: Docusate Sodium (Colace) 100 mg PO BID PRN PRN Reason: Constipation Last Admin: 08/13/20 14:54 Dose: 100 mg Documented by: Ezetimibe (Zetia) 10 mg PO DAILY [facility] Last Admin: 08/15/20 08:53 Dose: 10 mg Documented by: Fluticasone Propionate (Flonase) 0 gm LINDA BID [facility] Last Admin: 08/15/20 20:51 Dose: 1 spray Documented by: Furosemide (Lasix) 20 mg PO DAILY PRN PRN Reason: Edema Gabapentin (Neurontin) 300 mg PO BEDTIME [facility] Last Admin: 08/15/20 20:25 Dose: 300 mg Documented by: Guaifenesin (Mucinex) 600 mg PO TID [facility] Last Admin: 08/15/20 20:31 Dose: 600 mg Documented by: Guaifenesin/Codeine Phosphate (Robitussin Ac) 5 ml PO Q4H PRN PRN Reason: Cough Last Admin: 08/15/20 00:49 Dose: 5 ml Documented by: Diltiazem HCl 100 mg/ Sodium (Chloride) 100 mls @ 5 mls/hr IV TITRATE [facility]; Protocol Last Titration: 08/05/20 08:00 Dose: 0 mg/hr, 0 mls/hr Documented by: Lidocaine (Aspercreme 4%) 1 each TOP DAILY [facility] Last Admin: 08/15/20 08:58 Dose: 1 each Documented by: Losartan Potassium (Cozaar) 50 mg PO BID [facility] Last Admin: 08/15/20 20:24 Dose: 50 mg Documented by: Magnesium Hydroxide (Milk Of Magnesia) 30 ml PO Q4H PRN PRN Reason: Constipation Last Admin: 08/12/20 20:52 Dose: 30 ml Documented by: Meclizine HCl (Antivert) 25 mg PO Q6H PRN PRN Reason: Dizziness Last Admin: 08/14/20 12:26 Dose: 25 mg Documented by: Metoprolol Tartrate (Lopressor) 75 mg PO BID [facility] Last Admin: 08/15/20 20:23 Dose: 75 mg Documented by: Miscellaneous Information (Remove Patch) 1 ea TRDERM BEDTIME [facility] Last Admin: 08/15/20 20:52 Dose: 1 ea Documented by: Nitroglycerin (Nitrostat) 0.4 mg SL ASDIRECTED PRN PRN Reason: Chest Pain Lovastatin 80 Mg (Ptom) 80 mg PO BEDTIME [facility] Last Admin: 08/15/20 20:52 Dose: Not Given Documented by: Ondansetron HCl (Zofran) 4 mg IV Q4H PRN PRN Reason: Nausea/Vomiting Primidone (Mysoline) 300 mg PO BID [facility] Last Admin: 08/15/20 20:22 Dose: 300 mg Documented by: Promethazine HCl/Codeine (Phenergan With Codeine) 5 ml PO Q4HR PRN PRN Reason: Cough Last Admin: 08/16/20 01:13 Dose: 5 ml Documented by: Sodium Chloride (Saline Flush) 10 ml FLUSH ASDIRECTED PRN PRN Reason: Keep Vein Open Spironolactone (Aldactone) 25 mg PO DAILY [facility] Last Admin: 08/15/20 08:48 Dose: 25 mg Documented by: Zinc Sulfate (Zincate) 220 mg PO DAILY [facility] Last Admin: 08/15/20 08:54 Dose: 220 mg Documented by: Discontinued Medications Acetaminophen (Tylenol) 975 mg PO ONETIME ONE Stop: 08/04/20 10:01 Last Admin: 08/04/20 10:52 Dose: 975 mg Documented by: Al Hydroxide/Mg Hydroxide (Mag-Al Plus) 30 ml PO Q4H PRN PRN Reason: Heartburn Stop: 08/07/20 04:13 Last Admin: 08/05/20 04:23 Dose: 30 ml Documented by: Amlodipine Besylate (Norvasc) 5 mg PO BEDTIME [facility] Last Admin: 08/08/20 21:01 Dose: 5 mg Documented by: Amlodipine Besylate (Norvasc) 5 mg PO ONETIME ONE Stop: 08/09/20 17:13 Last Admin: 08/10/20 08:45 Dose: Not Given Documented by: Amlodipine Besylate (Norvasc) 10 mg PO BEDTIME [facility] Amlodipine Besylate (Norvasc) 5 mg PO BEDTIME [facility] Last Admin: 08/10/20 20:18 Dose: 5 mg Documented by: Amlodipine Besylate (Norvasc) 10 mg PO DAILY [facility] Chlorthalidone (Chlorthalidone) 12.5 mg PO DAILY [facility] Last Admin: 08/07/20 16:41 Dose: Not Given Documented by: Dexamethasone (Dexamethasone) 6 mg PO Q24H [facility] Stop: 08/13/20 16:01 Last Admin: 08/13/20 16:02 Dose: 6 mg Documented by: Diltiazem HCl (Cardizem) 10 mg IVPUSH ONETIME ONE Stop: 08/05/20 03:24 Last Admin: 08/05/20 03:34 Dose: 10 mg Documented by: Diltiazem HCl (Cardizem) 10 mg IVPUSH ONETIME ONE Stop: 08/05/20 04:05 Last Admin: 08/05/20 04:11 Dose: 10 mg Documented by: Enoxaparin Sodium (Lovenox) 30 mg SUBCUT Q12H [facility] Last Admin: 08/04/20 16:56 Dose: 30 mg Documented by: Enoxaparin Sodium (Lovenox) 30 mg SUBCUT Q12H [facility] Last Admin: 08/05/20 17:33 Dose: 30 mg Documented by: Famotidine (Pepcid) 20 mg IVPUSH ONETIME ONE Stop: 08/05/20 09:01 Last Admin: 08/05/20 09:43 Dose: Not Given Documented by: Furosemide (Lasix) 40 mg IVPUSH NOW ROBE Stop: 08/04/20 17:00 Furosemide (Lasix) 20 mg IVPUSH ONETIME ONE Stop: 08/04/20 22:01 Last Admin: 08/04/20 22:43 Dose: 20 mg Documented by: Furosemide (Lasix) 40 mg IVPUSH NOW ONE Stop: 08/06/20 14:16 Last Admin: 08/06/20 14:29 Dose: 40 mg Documented by: Dextrose/Sodium Chloride (Dextrose 5%-Normal Saline) 1,000 mls @ 150 mls/hr IV ASDIRECTED [facility] Last Admin: 08/04/20 10:51 Dose: 150 mls/hr Documented by: Remdesivir 200 mg/ Sodium (Chloride) 250 mls @ 250 mls/hr IV ONETIME ONE Stop: 08/04/20 14:33 Last Admin: 08/04/20 16:54 Dose: 250 mls/hr Documented by: Remdesivir 100 mg/ Sodium (Chloride) 100 mls @ 100 mls/hr IV Q24H ROBE Stop: 08/08/20 16:59 Last Admin: 08/08/20 15:31 Dose: 100 mls/hr Documented by: Azithromycin 500 mg/ Sodium (Chloride) 250 mls @ 250 mls/hr IV Q24H ROBE Stop: 08/06/20 17:59 Last Admin: 08/06/20 16:58 Dose: 250 mls/hr Documented by: Ceftriaxone Sodium 2 gm/ (Sodium Chloride) 100 mls @ 200 mls/hr IV Q24H [facility] Stop: 08/08/20 18:29 Last Admin: 08/08/20 17:36 Dose: 200 mls/hr Documented by: Sodium Chloride (Normal Saline) Confirm Administered Dose 250 mls @ as directed .ROUTE .STK-MED ONE Stop: 08/04/20 20:59 Last Admin: 08/04/20 21:14 Dose: 50 mls/hr Documented by: Potassium Chloride 10 meq/ (Premix) 100 mls @ 100 mls/hr IV Q1H [facility] Stop: 08/05/20 12:59 Last Admin: 08/05/20 12:51 Dose: 100 mls/hr Documented by: Magnesium Hydroxide (Milk Of Magnesia) 30 ml PO ONETIME ONE Stop: 08/13/20 09:48 Last Admin: 08/13/20 09:56 Dose: 30 ml Documented by: Metoprolol Tartrate (Lopressor) 2.5 mg IVPUSH ONETIME ONE Stop: 08/05/20 07:47 Last Admin: 08/05/20 07:56 Dose: 2.5 mg Documented by: Metoprolol Tartrate (Lopressor) 50 mg PO BIDMEALS [facility] Last Admin: 08/06/20 08:24 Dose: 50 mg Documented by: Metoprolol Tartrate (Lopressor) 2.5 mg IVPUSH ONETIME ONE Stop: 08/05/20 08:13 Last Admin: 08/05/20 17:45 Dose: 2.5 mg Documented by: Metoprolol Tartrate (Lopressor) 75 mg PO BIDMEALS [facility] Last Admin: 08/11/20 17:36 Dose: 75 mg Documented by: Metoprolol Tartrate (Lopressor) 25 mg PO ONETIME ONE Stop: 08/06/20 09:31 Last Admin: 08/06/20 09:31 Dose: 25 mg Documented by: Non-Formulary Medication (Docusate Sodium [Colace]) 150 mg PO DAILY [facility] Potassium Chloride (Klor-Con M20) 40 meq PO ONETIME ONE Stop: 08/06/20 11:01 Last Admin: 08/06/20 11:58 Dose: 40 meq Documented by: - Exam Quality Assessment: Supplemental Oxygen (1L), DVT Prophylaxis General: Alert, Oriented, Cooperative, No Acute Distress HEENT: Pupils Equal, Pupils Reactive, Mucous Membr. Moist/Prue Neck: Supple, Trachea Midline Lungs: Normal Respiratory Effort, Decreased Breath Sounds. No: Crackles, Rales, Rhonchi, Wheezing Cardiovascular: Regular Rate, Regular Rhythm GI/Abdominal Exam: Normal Bowel Sounds, Soft, Non-Tender, No Distention (Female) Exam: Deferred Back Exam: Normal Inspection, Full Range of Motion Extremities: Normal Inspection, Normal Range of Motion, No Pedal Edema Skin: Warm, Dry, Intact Neurological: No New Focal Deficit Psy/Mental Status: Alert, Normal Affect, Normal Mood Sepsis Event Note - Evaluation Sepsis Screening Result: No Definite Risk - Focused Exam Vital Signs: Vital Signs Temp Temp Pulse Resp BP Pulse Ox 08/16/20 04:00 97.4 F 70 24 H 93/48 L 85 L 08/16/20 01:12 100.9 F H 08/16/20 01:10 100.9 F H 81 24 H 131/55 L 88 L 08/15/20 22:53 71 121/64 87 L - Problem List & Annotations (1) Acute hypoxemic respiratory failure SNOMED Code(s): 863244117 Code(s): J96.01 - ACUTE RESPIRATORY FAILURE WITH HYPOXIA Status: Acute Priority: High Current Visit: Yes (2) Atrial fibrillation with rapid ventricular response SNOMED Code(s): 330672686670122 Code(s): I48.91 - UNSPECIFIED ATRIAL FIBRILLATION Status: Resolved Priority: High Current Visit: Yes (3) COVID-19 determined by clinical diagnostic criteria SNOMED Code(s): 197910042, 551177535 Code(s): U07.1 - COVID-19 Status: Acute Priority: High Current Visit: Yes (4) Congestive heart failure (CHF) SNOMED Code(s): 02648336 Code(s): I50.9 - HEART FAILURE, UNSPECIFIED Status: Acute Priority: High Current Visit: Yes Qualifiers: Heart failure type: unspecified Heart failure chronicity: unspecified Qualified Code(s): I50.9 - Heart failure, unspecified (5) Hyponatremia SNOMED Code(s): 56285143 Code(s): E87.1 - HYPO-OSMOLALITY AND HYPONATREMIA Status: Acute Priority: High Current Visit: Yes (6) Hypoxia SNOMED Code(s): 961157412 Code(s): R09.02 - HYPOXEMIA Status: Acute Priority: High Current Visit: Yes (7) Leukocytosis, unspecified SNOMED Code(s): 359712912, 552400120 Code(s): D72.829 - ELEVATED WHITE BLOOD CELL COUNT, UNSPECIFIED Status: Acute Priority: High Current Visit: Yes Qualifiers: Leukocytosis type: monocytosis Qualified Code(s): D72.821 - Monocytosis (symptomatic) (8) New onset atrial fibrillation SNOMED Code(s): 53613772 Code(s): I48.91 - UNSPECIFIED ATRIAL FIBRILLATION Status: Acute Priority: High Current Visit: Yes (9) Pneumonia due to 2019 novel coronavirus SNOMED Code(s): 230359633494907815 Code(s): U07.1 - COVID-19; J12.89 - OTHER VIRAL PNEUMONIA Status: Acute Priority: High Current Visit: Yes (10) Essential tremor SNOMED Code(s): 526553801 Code(s): G25.0 - ESSENTIAL TREMOR Status: Chronic Priority: Medium Current Visit: Yes (11) CAD (coronary artery disease) SNOMED Code(s): 49614095 Code(s): I25.10 - ATHSCL HEART DISEASE OF [place] CORONARY ARTERY W/O ANG PCTRS Status: Chronic Priority: Low Current Visit: No Qualifiers: Coronary Disease-Associated Artery/Lesion type: unspecified vessel or lesion type [place] vs. transplanted heart: unspecified whether [place] or transplanted heart Associated angina: with unspecified angina Qualified Code(s): I25.119 - Atherosclerotic heart disease of [place] coronary artery with unspecified angina pectoris (12) GERD (gastroesophageal reflux disease) SNOMED Code(s): 630526491 Code(s): K21.9 - GASTRO-ESOPHAGEAL REFLUX DISEASE WITHOUT ESOPHAGITIS Status: Chronic Priority: Low Current Visit: No Qualifiers: Esophagitis presence: esophagitis presence not specified Qualified Code(s): K21.9 - Gastro-esophageal reflux disease without esophagitis (13) HTN (hypertension) SNOMED Code(s): 62130498 Code(s): I10 - ESSENTIAL (PRIMARY) HYPERTENSION Status: Chronic Priority: Low Current Visit: No Qualifiers: Hypertension type: essential hypertension Qualified Code(s): I10 - Essential (primary) hypertension (14) Osteoarthritis SNOMED Code(s): 089326692 Code(s): M19.90 - UNSPECIFIED OSTEOARTHRITIS, UNSPECIFIED SITE Status: Chronic Priority: Low Current Visit: No Qualifiers: Osteoarthritis location: unspecified site Osteoarthritis type: unspecified Qualified Code(s): M19.90 - Unspecified osteoarthritis, unspecified site (15) Elevated d-dimer SNOMED Code(s): 629224220 Code(s): R79.89 - OTHER SPECIFIED ABNORMAL FINDINGS OF BLOOD CHEMISTRY Status: Acute Priority: High Current Visit: Yes (16) Pneumonia SNOMED Code(s): 294644294 Code(s): J18.9 - PNEUMONIA, UNSPECIFIED ORGANISM Status: Acute Priority: High Current Visit: Yes Qualifiers: Pneumonia type: due to unspecified organism Laterality: left Lung location: lower lobe of lung Qualified Code(s): J18.9 - Pneumonia, unspecified organism - Problem List Review Problem List Initiated/Reviewed/Updated: Yes - Assessment Assessment:: Assessment: Acute: Covid-19 Infection Viral Pneumonitis/Atypical Pneumonia Elevated d-dimer -Completed 2 units of convalescent plasma -Completed 5 day course of Veklury -Completed 5 days of Rocephin and 3 days of Azithromycin -10 day course of Dexamethasone competed -Continue IS and FV as directed -She is requiring oxygen today -CTA obtained - negative for PE but atelectasis vs. PNA noted. New onset A. fib with RVRresolved -Rate is well controlled on metoprolol tartrate 75 mg po BID -Anticoagulate secondary to A. fib with Eliquis -HR is well controlled: 60s-70s HTN -Vital signs every 4 hours -BP Meds: Metoprolol tartrate 75 mg po BID, Aldactone 25 mg po daily, Losartan 50 mg po BID, Norvasc 10 mg po daily, and PRN Lasix 20 mg po daily -Blood pressure is adequately controlled Hypo-osmolar hyponatremia, stable -She is not symptomatic -Na now at 131 -On Lasix 20 mg daily as needed -Continue fluid restriction to 1500 ml daily -Continue to monitor intake and output every 8 hours Congestive heart failure (CHF) with Preserved EF -Elevated proBNP of 799 -Has likely pulmonary HTN -2D echo shows normal EF 60-65%. No RWMA. Moderate calcification and thickening of mitral leaflets. Moderate-Severe RVSP at 62.7 mmHg -Continue Lasix and Aldactone -1.5 L for fluid restriction and AHA diet -Follow-up chest x-ray 08/13/2020 read as nothing acute seen Leukocytosis, POA, -Likely from underlying infection but also on steroids -Will monitor -Increased again (2 days) from 13.20 to 24.15 to 34.33 -R/o secondary infection Mild Hypochloremia with Cl, 96, POA, resolved Hyperglycemia, POA, resolved -Likely due to steroid and now on steroids -Carries no hx/o diabetes or glucose intolerance -We will monitor Elevated CRP level of 28.4, POA -Most recent level of 30.4 -Unsure why elevated again -Patient coughing and reporting feeling bad yesterday Hypoalbuminemia, POA -Albumin of 2.8; now 2.3 -Title I Instructional Assistant following Macrocytic Normochromic Anemia with Hgb of 10.3, stable Chronic: Impaired Vision and Hearing HTN HLD Hx/o NC CAD S/p stents placement Asthma HIWOT Chronic Constipation Recurrent UTI OA Hx/o esophageal cancer Hx/o Splenectomy Anxiety ET - Plan Plan:: 08/04/20 * 85-year-old female with gradual onset weakness, cough, decreased appetite, fever chills and diaphoresis that started about a week ago. Has been exposed to COVID-19 about 2 weeks ago at a . * Presented to the emergency department and was hypoxemic at 86% on room air. * Initial vital signs in the emergency department reveal a temp of 37.3 Celsius, pulse 84, respiratory rate 20, pressure 170/68, pulse ox 91% on 2 L of oxygen per nasal cannula * Labs in the ED revealed WBC 14.19, sodium 126, potassium 4.1, BUN 8, creatinine 0.6, GFR greater than 60, lactic acid 1.4, LDH 221, troponin I 0.019, C-reactive protein 18.7, D-dimer 1.03, ferritin 142, proBNP 2163, she is Covid positive, urinalysis is unremarkable for infection. Sets of blood cultures were also collected in the emergency department. * Portable chest x-ray reveals a mild increase in interstitial lung markings bilaterally. There is a nodule airspace opacity within the right midlung zone. Findings suggest a pneumonic infiltrate. Consider atypical viral etiology. Pleural spaces otherwise unremarkable with no pleural effusion or pneumothorax. Heart size is mildly prominent. 08/05/2020 * New onset atrial fibrillation with RVR overnight. Stabilized with IV metoprolol and oral metoprolol. * Patient did have some chest pain with the chest pain and her troponin increased slightly to 0.06 * Patient's chest pain when I examined was mostly in her abdomen. This did resolve with resolution of her A. fib RVR. * Patient continues to have hyponatremia 129, white count is elevated at 15.1 likely secondary to inflammation, hypokalemia with potassium of 3.2 and worsening of her proBNP at 3894. * Procalcitonin is less than 0.05. This makes it unlikely that her white count is secondary to significant bacterial infection. PLAN: Pneumonia due to 2019 novel coronavirus, Acute hypoxemic respiratory failure * Convalescent plasma 2 units today. I spoke with the patient to provide information about convalescent plasma for herself. I offered her the fax sheet for patients and caregivers for COVID-19 convalescent plasma to read and review. I stated the therapy has been approved by an emergency youth authorization process and has not fully been FDA reviewed or approved. I shared potential risks from the therapy including transmission of blood-borne pathogen such as HIV and hepatitis C, allergic and transfusion related re actions, post transfusion purpura. Additionally theoretical risks including a phenomenon called antibodydependent enhancement of infection such as seen in dengue or attenuation of an immune response that may make patients more susceptible to reinfection. I discussed there are other potential treatment options that are currently not FDA approved to treat COVID-19. Offered opportunity to ask questions and all questions were answered. The patient voiced understanding and agreed to proceed with treatment for herself. * Remdesivir 200 mg IV x1 dose then 100 mg daily x4 more doses. * Dexamethasone 6 mg p.o. daily x10 days * Rocephin 2 g daily x5 days * Zithromax 500 mg IV daily x3 days * Incentive spirometer and flutter valve every hour while awake 08/06/20 New onset A. fib with RVR * Rate is still not controlled on current dose of metoprolol. Increase metoprolol to 75 mg by mouth twice daily. * Anticoagulate secondary to A. fib with Eliquis HTN (hypertension) * Vital signs every 4 hours * Readjust antihypertensives based on blood pressure and adjustment of metoprolol Hyponatremia * Restart Lasix in the morning 20 mg daily as needed * 1500 mL fluid restriction every 24 hours * Monitor intake and output every 8 hours Congestive heart failure (CHF) * Furosemide 40mg IV x 1 dose today. * Follow-up chest x-rays as needed * Echocardiogram pending Eliquis for stroke and DVT prophylaxis Patient is a DNR/DNI PT OT to eval and treat Dietitian consult regarding patient's caloric needs administrative services specialist and case management for discharge planning Respiratory therapy to titrate oxygen to keep O2 saturations between 88 and 94% Change patient to MedSurg status with telemetry and continuous pulse oximetry. Discontinue Adkins catheter, but maintain strict VIJAYA and daily weight Patient will be here greater than 96 hours due to the standard 5-day treatment course for Covid 08/07/20 New onset A. fib with RVR * Rate is well controlled on metoprolol * Anticoagulate secondary to A. fib with Eliquis HTN (hypertension) * Vital signs every 4 hours * Readjust antihypertensives based on blood pressure and adjustment of metoprolo l * Start chlorthalidone 12.5 mg daily Hyponatremia * Restart Lasix in the morning 20 mg daily as needed * 1500 mL fluid restriction every 24 hours * Monitor intake and output every 8 hours * Sodium 129 today. Upon further investigation and patient's previous hospital visits, this is a chronic issue. Will have patient's primary physician follow-up regarding this as patient is asymptomatic. Congestive heart failure (CHF) * Follow-up chest x-rays as needed * Lasix 20 mg daily as needed 08/08/2020 New onset A. fib with RVRstable * Rate is well controlled on metoprolol * Anticoagulate secondary to A. fib with Eliquis HTN (hypertension) * Vital signs every 4 hours * Readjust antihypertensives based on blood pressure and adjustment of metoprolol * Chlorthalidone was held secondary to hyponatremia * Norvasc restarted at a lower dose of 5 mg daily Hyponatremia * Lasix in the morning 20 mg daily as needed * 1500 mL fluid restriction every 24 hours * Monitor intake and output every 8 hours * Sodium 131 today. Upon further investigation and patient's previous hospital visits, this is a chronic issue. Will have patient's primary physician follow-up regarding this as patient is asymptomatic. Congestive heart failure (CHF) * Follow-up chest x-rays as needed * Lasix 20 mg daily as needed 08/09/2020 New onset A. fib with RVRstable * Rate is well controlled on metoprolol * Anticoagulate secondary to A. fib with Eliquis HTN (hypertension) * Vital signs every 4 hours * Readjust antihypertensives based on blood pressure and adjustment of metoprolol * Chlorthalidone was held secondary to hyponatremia * Norvasc restarted at a lower dose of 5 mg at bedtime Hyponatremia * Lasix in the morning 20 mg daily as needed * 1500 mL fluid restriction every 24 hours * Monitor intake and output every 8 hours * Sodium 133improvedtoday. Upon further investigation and patient's previous hospital visits, this is a chronic issue. Will have patient's primary physician follow-up regarding this as patient is asymptomatic. Congestive heart failure (CHF) * Follow-up chest x-rays as needed * Lasix 20 mg daily as needed 08/10/2020 New onset A. fib with RVRstable * Rate is well controlled on metoprolol * Anticoagulate secondary to A. fib with Eliquis HTN (hypertension) * Vital signs every 4 hours * Readjust antihypertensives based on blood pressure and adjustment of metoprolol * Chlorthalidone was held secondary to hyponatremia * Norvasc restarted at a lower dose of 5 mg at bedtime * Blood pressure is adequately treated Hyponatremia * Lasix 20 mg daily as needed * Increase fluid restriction to 2000 mL * Monitor intake and output every 8 hours * Recheck labs in the morning. Congestive heart failure (CHF) * Follow-up chest x-rays as needed * Lasix 20 mg daily as needed * Continue metoprolol Eliquis for stroke and DVT prophylaxis Patient is a DNR/DNI PT OT to eval and treat administrative services specialist and case management for discharge planning patient has agreed to go to [facility] upon discharge. Respiratory therapy to titrate oxygen to keep O2 saturations between 88 and 94% Patient will be here greater than 96 hours due to the standard 5-day treatment course for Covid 08/11/2020 New onset A. fib with RVRstable * Rate is well controlled on metoprolol * Anticoagulate secondary to A. fib with Eliquis HTN (hypertension) * Vital signs every 4 hours * Readjust antihypertensives based on blood pressure and adjustment of metoprolol * Norvasc raised to 10 mg daily. This is her home dose. * Blood pressure is adequately treated Hyponatremia * Lasix 20 mg daily as needed * Increase fluid restriction to 2000 mL * Monitor intake and output every 8 hours Congestive heart failure (CHF) * Follow-up chest x-rays as needed * Lasix 20 mg daily as needed * Continue metoprolol Eliquis for stroke and DVT prophylaxis Patient is a DNR/DNI PT OT to eval and treat administrative services specialist and case management for discharge planning patient has agreed to go to [facility] upon discharge. Awaiting acceptance to [facility]. Respiratory therapy to titrate oxygen to keep O2 saturations between 88 and 94% Patient will be here greater than 96 hours due to the standard 5-day treatment course for Covid 08/12/2020 Continue steroid therapy Routine AM Labs Encourage to ambulate inside her room as much as she can IS and FV as directed Fluid restriction to 1500 ml daily Chest x-ray in AM Title I Instructional Assistant following PT/OT to assess and treat She is being evaluated by Eliceo Love'robert [place] LOS> 96hrs and pending placement due to new rules/protocol for covid-patient [facility] placement 08/13/2020 Continue steroid therapy Routine AM Labs Encourage to ambulate inside her room as much as she can IS and FV as directed Continue Fluid restriction to 1500 ml daily Title I Instructional Assistant following PT/OT to assess and treat Discharge to [facility] this Tuesday per 08/14/2020 Completed 10 day course of Dexamethasone Routine AM Labs Encourage to ambulate inside her room as much as she can IS and FV as directed Continue Fluid restriction to 1500 ml daily Title I Instructional Assistant following PT/OT to assess and treat Discharge to [facility] this Tuesday @ 1300 per 08/15/2020 Completed COVID-19 treatment Reports she "feels horrible today" - SOB, general myalgias, cough Reports coughing fit last night Continue IS/Acapella Continue fluid restriction Continue PT/OT CXR ordered WBC increased to 24.15 Recheck labs in AM Procalcitonin ordered Monitor need for oxygen Will hold off discharge today to investigate increasing leukocytosis (steroid vs secondary infection) Plan for discharge Tuesday08/18/20 08/16/2020 Patient reports she feels better today and that "it may have been the weather" WBC again elevated at 34.33 CRP elevated at 30.4 D-dimer 2.64 CTA obtained and shows atelectasis vs PNA in left lung base Procalcitonin obtained from 08/15/20 and was negative Discussed with Dr. Tucker - will start zosyn with concerns of secondary infection Patient had completed 5 day course of rocephin on 08/08/2020 and 3 day course of azithromycin Will monitor daily labs Requiring 1L oxygen today Continue IS/Acapella RT continuing to work with patient Continue fluid restriction
[2020-08-16] MEDS: ALPRAZolam 0.25 MG Tab PO PRN ×2 (08:31→20:42)
[2020-08-16] MEDS: Metoprolol Tartrate 25 MG Tab PO SCH ×2 (08:32→20:42)
[2020-08-16] MEDS: Cholecalciferol (Vitamin D3) 25 MCG Tab PO SCH (08:32)
[2020-08-16] MEDS: Ezetimibe 10 MG Tab PO SCH (08:34)
[2020-08-16] MEDS: Aspirin 81 MG Tab.EC PO SCH (08:35)
[2020-08-16] MEDS: Losartan 25 MG Tab PO SCH ×2 (08:36→20:41)
[2020-08-16] MEDS: Zinc Sulfate 220 MG Cap PO SCH (08:36)
[2020-08-16] MEDS: Primidone 50 MG Tab PO SCH ×2 (08:38→20:41)
[2020-08-16] MEDS: guaiFENesin 600 MG Tab.ER PO SCH ×3 (08:41→20:40)
[2020-08-16] MEDS: Apixaban 5 MG Tab PO SCH ×2 (08:41→20:42)
[2020-08-16] MEDS: Lidocaine 4% 1 each Patch TOP SCH (08:42)
[2020-08-16] MEDS: Spironolactone 25 MG Tab PO SCH (08:42)
[2020-08-16] MEDS ORDERED: Piperacillin/Tazobactam 4.5 GM in Sodium Chloride 0.9% 100 ML IV ONE (09:46)
[2020-08-16] MEDS ORDERED: Sodium Chloride 0.9% 500 ML IV ONE (10:17)
[2020-08-16] MEDS: Fluticasone Propionate Nasal Spray 16 GM Bottle NAS SCH (11:01)
[2020-08-16] MEDS ORDERED: Iopamidol 755 Mg/ML 100 ML Bottle IVPUSH ONE (12:02)
[2020-08-16] MEDS ORDERED: Sodium Chloride 0.9% 100 ML IV SCH (12:15)
[2020-08-16] MEDS: Albuterol 6.7 GM Inhaler INH PRN (12:43)
--- NOTE | 2020-08-16 13:04 | CT ---
CT chest Technique: Multiple axial sections were obtained from above the lung apices inferiorly as a pulmonary angiogram protocol. Reconstructed coronal and axial images were obtained. Comparison: Prior CT angiogram chest study of 10/15/14. Findings: Pulmonary arteries are well opacified. There are no filling defects seen to indicate pulmonary embolism. Thoracic aorta shows atherosclerotic calcification with no aneurysm. Small mediastinal lymph nodes are seen which are believed to be within normal limits. No pericardial thickening is appreciated. Mild coronary artery calcification is noted. Visualized upper abdominal structures show nothing acute. Density is noted within the left base. This could represent small area of pneumonia as well as atelectasis. Focal atelectasis is seen within the posterior right lung base. Slight atelectasis is seen within the lingula. No additional parenchymal abnormalities are appreciated. Bone window settings were reviewed which show diffuse degenerative change throughout the thoracic spine. No definite acute osseous findings are seen. Several old healed rib fractures are noted. Impression: 1. No findings of pulmonary embolism. 2. Focal density within left lung base. Please correlate if patient has any symptoms of pneumonia this otherwise is due to thick area of atelectasis. Smaller areas of atelectasis within the right lung base and lingula. 3. Prior study showed a small solid-appearing nodule within the right kidney. This is not on current study and no comment can be made. 4. Other incidental findings as noted above. Diagnostic code #3
[2020-08-16] MEDS: Piperacillin/Tazobactam 4.5 GM in Sodium Chloride 0.9% 100 ML IV SCH (18:03)
[2020-08-16] MEDS: Gabapentin 300 MG Cap PO SCH (20:41)
[2020-08-16] MEDS: amLODIPine 10 MG Tab PO SCH (20:42)
[2020-08-16] MEDS: Benzonatate 100 MG Cap PO PRN (20:43)
[2020-08-16] MEDS: LOVASTATIN 80 MG PO SCH (20:45)
[2020-08-17] MEDS: Fluticasone Propionate Nasal Spray 16 GM Bottle NAS SCH ×3 (03:50→20:26)
[2020-08-17] MEDS: Piperacillin/Tazobactam 4.5 GM in Sodium Chloride 0.9% 100 ML IV SCH ×3 (03:50→18:20)
[2020-08-17] MEDS: Codeine/Promethazine 10-6.25 MG/5 ML Syrup 5 ML UD Cup PO PRN (03:53)
[2020-08-17] MEDS: Lidocaine 4% 1 each Patch TOP SCH (08:01)
[2020-08-17] MEDS: Cholecalciferol (Vitamin D3) 25 MCG Tab PO SCH (08:03)
[2020-08-17] MEDS: Losartan 25 MG Tab PO SCH ×2 (08:04→21:21)
[2020-08-17] MEDS: Metoprolol Tartrate 25 MG Tab PO SCH ×2 (08:04→21:22)
[2020-08-17] MEDS: Zinc Sulfate 220 MG Cap PO SCH (08:05)
[2020-08-17] MEDS: guaiFENesin 600 MG Tab.ER PO SCH ×3 (08:05→20:26)
[2020-08-17] MEDS: Apixaban 5 MG Tab PO SCH ×2 (08:05→20:26)
[2020-08-17] MEDS: Aspirin 81 MG Tab.EC PO SCH (08:05)
[2020-08-17] MEDS: Ezetimibe 10 MG Tab PO SCH (08:05)
[2020-08-17] MEDS: Spironolactone 25 MG Tab PO SCH (08:06)
[2020-08-17] MEDS: Potassium Chloride 20 MEQ Tab.ER PO SCH ×2 (09:03→20:26)
[2020-08-17] MEDS: Primidone 50 MG Tab PO SCH ×2 (09:04→20:24)
--- NOTE | 2020-08-17 09:52 | PCM.PN ---
- General Info Date of Service: 08/17/20 Admission Dx/Problem (Free Text): Admission Diagnosis/Problem Admission Diagnosis/Problem Weakness Subjective Update: In to see Delores. She is lying in bed. Nursing is reporting patient is minimally motivated and deconditioned. Patient refusing to eat much and nursing has been working on this. We had a discussion about her decreasing motivation and plan for discharge. Switching from IV to PO abx. Suspect elevated CRP and WBC are related to COVID-19 and steroids but will treat for PNA. Likely discharge to SNF tomorrow. Functional Status: Reports: Pain Controlled, Ambulating (minimal ), Incentive S pirometry. Denies: Tolerating Diet (minimal intake ), Urinating, New Symptoms - Review of Systems General: Reports: Weakness, Fatigue, Malaise. Denies: Fever, Chills HEENT: Reports: No Symptoms. Denies: Headaches, Sore Throat Pulmonary: Reports: No Symptoms. Denies: Shortness of Breath, Pleuritic Chest Pain, Cough, Sputum, Wheezing Cardiovascular: Reports: Dyspnea on Exertion. Denies: Chest Pain, Palpitations, Orthopnea, Edema Gastrointestinal: Reports: Decreased Appetite. Denies: Abdominal Pain, Constipation, Diarrhea, Nausea, Vomiting Genitourinary: Reports: No Symptoms. Denies: Pain Musculoskeletal: Reports: Other (Generalized myalgia ) Skin: Reports: No Symptoms. Denies: Cyanosis Neurological: Reports: Difficulty Walking, Weakness, Gait Disturbance. Denies: Confusion, Dizziness, Numbness, Tingling - Patient Data Vitals - Most Recent: Last Vital Signs Temp 97.5 F 08/17/20 04:00 Pulse 73 08/17/20 08:04 Resp 20 08/17/20 04:00 BP 117/73 08/17/20 08:04 Pulse Ox 93 L 08/17/20 04:00 Weight - Most Recent: 129 lb 8 oz I&O - Last 24 Hours: Intake & Output 08/16/20 08/17/20 08/17/20 22:59 06:59 14:59 Intake Total 960 390 Balance 960 390 Lab Results Last 24 Hours: Laboratory Results - last 24 hr 08/16/20 08/17/20 08/17/20 Range/Units 09:30 04:49 04:49 WBC 30.33 H (3.98-10.04) K/mm3 RBC 3.12 L (3.98-5.22) M/mm3 Hgb 9.5 L (11.2-15.7) gm/dl Hct 29.9 L (34.1-44.9) % MCV 95.8 H (79.4-94.8) fl MCH 30.4 (25.6-32.2) pg MCHC 31.8 L (32.2-35.5) g/dl RDW Std Deviation 51.2 H (36.4-46.3) fL Plt Count 255 (182-369) K/mm3 MPV 10.9 (9.4-12.3) fl Neut % (Auto) 34.5 (34.0-71.1) % Lymph % (Auto) 6.9 L (19.3-51.7) % [place] % (Auto) 57.8 H (4.7-12.5) % Eos % (Auto) 0.1 L (0.7-5.8) Baso % (Auto) 0.1 (0.1-1.2) % Neut # (Auto) 10.45 H (1.56-6.13) K/mm3 Lymph # (Auto) 2.09 (1.18-3.74) K/mm3 [place] # (Auto) 17.53 H (0.24-0.36) K/mm3 Eos # (Auto) 0.04 (0.04-0.36) K/mm3 Baso # (Auto) 0.03 (0.01-0.08) K/mm3 Manual Slide Review Abnormal smear D-Dimer, Quantitative 2.64 H 0.94 H (0.19-0.50) mg/L Sodium (136-145) mEq/L Potassium (3.5-5.1) mEq/L Chloride (98-107) mEq/L Carbon Dioxide (21-32) mEq/L Anion Gap (5-15) BUN (7-18) mg/dL Creatinine (0.55-1.02) mg/dL Est Cr Clr Drug Dosing mL/min Estimated GFR (MDRD) (>60) mL/min BUN/Creatinine Ratio (14-18) Glucose (83-115) mg/dL Calcium (8.5-10.1) mg/dL Magnesium (1.8-2.4) mg/dl Total Bilirubin (0.2-1.0) mg/dL AST (15-37) U/L ALT (14-59) U/L Alkaline Phosphatase (46-116) U/L C-Reactive Protein (<1.0) mg/dL Total Protein (6.4-8.2) g/dl Albumin (3.4-5.0) g/dl Globulin gm/dL Albumin/Globulin Ratio (1-2) 08/17/20 Range/Units 04:49 WBC (3.98-10.04) K/mm3 RBC (3.98-5.22) M/mm3 Hgb (11.2-15.7) gm/dl Hct (34.1-44.9) % MCV (79.4-94.8) fl MCH (25.6-32.2) pg MCHC (32.2-35.5) g/dl RDW Std Deviation (36.4-46.3) fL Plt Count (182-369) K/mm3 MPV (9.4-12.3) fl Neut % (Auto) (34.0-71.1) % Lymph % (Auto) (19.3-51.7) % [place] % (Auto) (4.7-12.5) % Eos % (Auto) (0.7-5.8) Baso % (Auto) (0.1-1.2) % Neut # (Auto) (1.56-6.13) K/mm3 Lymph # (Auto) (1.18-3.74) K/mm3 [place] # (Auto) (0.24-0.36) K/mm3 Eos # (Auto) (0.04-0.36) K/mm3 Baso # (Auto) (0.01-0.08) K/mm3 Manual Slide Review D-Dimer, Quantitative (0.19-0.50) mg/L Sodium 133 L (136-145) mEq/L Potassium 3.4 L (3.5-5.1) mEq/L Chloride 98 (98-107) mEq/L Carbon Dioxide 27 (21-32) mEq/L Anion Gap 11.4 (5-15) BUN 22 H (7-18) mg/dL Creatinine 0.8 (0.55-1.02) mg/dL Est Cr Clr Drug Dosing 36.26 mL/min Estimated GFR (MDRD) > 60 (>60) mL/min BUN/Creatinine Ratio 27.5 H (14-18) Glucose 117 H (83-115) mg/dL Calcium 8.0 L (8.5-10.1) mg/dL Magnesium 2.3 (1.8-2.4) mg/dl Total Bilirubin 0.4 (0.2-1.0) mg/dL AST 19 (15-37) U/L ALT 24 (14-59) U/L Alkaline Phosphatase 53 (46-116) U/L C-Reactive Protein 30.6 H* (<1.0) mg/dL Total Protein 6.1 L (6.4-8.2) g/dl Albumin 1.8 L (3.4-5.0) g/dl Globulin 4.3 gm/dL Albumin/Globulin Ratio 0.4 L (1-2) Med Orders - Current: Current Medications Acetaminophen (Tylenol) 650 mg PO Q4H PRN PRN Reason: Pain (Mild 1-3)/fever Last Admin: 08/16/20 20:43 Dose: 650 mg Documented by: Albuterol (Proventil Neb Soln) 2.5 mg NEB Q2H PRN PRN Reason: Shortness Of Breath/wheezing Albuterol (Proventil Hfa) 2 gm INH Q4H PRN PRN Reason: SOB/Cough Last Admin: 08/16/20 12:43 Dose: 2 puff Documented by: Alprazolam (Xanax) 0.25 mg PO Q12H PRN PRN Reason: Anxiety Last Admin: 08/16/20 20:42 Dose: 0.25 mg Documented by: Amlodipine Besylate (Norvasc) 10 mg PO BEDTIME [facility] Last Admin: 08/16/20 20:42 Dose: 10 mg Documented by: Apixaban (Eliquis) 5 mg PO BID [facility] Last Admin: 08/17/20 08:05 Dose: 5 mg Documented by: Aspirin (Halfprin) 81 mg PO DAILY [facility] Last Admin: 08/17/20 08:05 Dose: 81 mg Documented by: Benzocaine/Menthol (Cepacol Sore Throat) 1 lozenge MUCMEM ASDIRECTED PRN PRN Reason: Cough Last Admin: 08/15/20 04:52 Dose: 1 lozenge Documented by: Benzonatate (Tessalon Perles) 200 mg PO QID PRN PRN Reason: Cough Last Admin: 08/16/20 20:43 Dose: 200 mg Documented by: Calcium Carbonate/Glycine (Tums) 1,000 mg PO Q2H PRN PRN Reason: Indigestion Last Admin: 08/12/20 10:47 Dose: 1,000 mg Documented by: Cholecalciferol (Vitamin D3) 25 mcg PO DAILY [facility] Last Admin: 08/17/20 08:03 Dose: 25 mcg Documented by: Docusate Sodium (Colace) 100 mg PO BID PRN PRN Reason: Constipation Last Admin: 08/13/20 14:54 Dose: 100 mg Documented by: Ezetimibe (Zetia) 10 mg PO DAILY [facility] Last Admin: 08/17/20 08:05 Dose: 10 mg Documented by: Fluticasone Propionate (Flonase) 0 gm LINDA BID [facility] Last Admin: 08/17/20 08:15 Dose: 1 spray Documented by: Furosemide (Lasix) 20 mg PO DAILY PRN PRN Reason: Edema Gabapentin (Neurontin) 300 mg PO BEDTIME [facility] Last Admin: 08/16/20 20:41 Dose: 300 mg Documented by: Guaifenesin (Mucinex) 600 mg PO TID [facility] Last Admin: 08/17/20 08:05 Dose: 600 mg Documented by: Guaifenesin/Codeine Phosphate (Robitussin Ac) 5 ml PO Q4H PRN PRN Reason: Cough Last Admin: 08/15/20 00:49 Dose: 5 ml Documented by: Diltiazem HCl 100 mg/ Sodium (Chloride) 100 mls @ 5 mls/hr IV TITRATE [facility]; Protocol Last Titration: 08/05/20 08:00 Dose: 0 mg/hr, 0 mls/hr Documented by: Piperacillin Sod/Tazobactam (Sod 4.5 gm/ Sodium Chloride) 100 mls @ 25 mls/hr IV Q8H [facility] Last Admin: 08/17/20 03:50 Dose: 25 mls/hr Documented by: Sodium Chloride (Normal Saline) 100 mls @ 75 mls/hr IV ASDIRECTED [facility] Lidocaine (Aspercreme 4%) 1 each TOP DAILY [facility] Last Admin: 08/17/20 08:01 Dose: 1 each Documented by: Losartan Potassium (Cozaar) 50 mg PO BID [facility] Last Admin: 08/17/20 08:04 Dose: 50 mg Documented by: Magnesium Hydroxide (Milk Of Magnesia) 30 ml PO Q4H PRN PRN Reason: Constipation Last Admin: 08/12/20 20:52 Dose: 30 ml Documented by: Meclizine HCl (Antivert) 25 mg PO Q6H PRN PRN Reason: Dizziness Last Admin: 08/14/20 12:26 Dose: 25 mg Documented by: Metoprolol Tartrate (Lopressor) 75 mg PO BID [facility] Last Admin: 08/17/20 08:04 Dose: 75 mg Documented by: Miscellaneous Information (Remove Patch) 1 ea TRDERM BEDTIME [facility] Last Admin: 08/16/20 20:45 Dose: 1 ea Documented by: Nitroglycerin (Nitrostat) 0.4 mg SL ASDIRECTED PRN PRN Reason: Chest Pain Lovastatin 80 Mg (Ptom) 80 mg PO BEDTIME [facility] Last Admin: 08/16/20 20:45 Dose: Not Given Documented by: Ondansetron HCl (Zofran) 4 mg IV Q4H PRN PRN Reason: Nausea/Vomiting Potassium Chloride (Klor-Con M20) 40 meq PO BID [facility] Stop: 08/18/20 09:01 Last Admin: 08/17/20 09:03 Dose: 40 meq Documented by: Primidone (Mysoline) 300 mg PO BID [facility] Last Admin: 08/17/20 09:04 Dose: 300 mg Documented by: Promethazine HCl/Codeine (Phenergan With Codeine) 5 ml PO Q4HR PRN PRN Reason: Cough Last Admin: 08/17/20 03:53 Dose: 5 ml Documented by: Sodium Chloride (Saline Flush) 10 ml FLUSH ASDIRECTED PRN PRN Reason: Keep Vein Open Last Admin: 08/16/20 12:25 Dose: 10 ml Documented by: Spironolactone (Aldactone) 25 mg PO DAILY [facility] Last Admin: 08/17/20 08:06 Dose: 25 mg Documented by: Zinc Sulfate (Zincate) 220 mg PO DAILY [facility] Last Admin: 08/17/20 08:05 Dose: 220 mg Documented by: Discontinued Medications Acetaminophen (Tylenol) 975 mg PO ONETIME ONE Stop: 08/04/20 10:01 Last Admin: 08/04/20 10:52 Dose: 975 mg Documented by: Al Hydroxide/Mg Hydroxide (Mag-Al Plus) 30 ml PO Q4H PRN PRN Reason: Heartburn Stop: 08/07/20 04:13 Last Admin: 08/05/20 04:23 Dose: 30 ml Documented by: Amlodipine Besylate (Norvasc) 5 mg PO BEDTIME [facility] Last Admin: 08/08/20 21:01 Dose: 5 mg Documented by: Amlodipine Besylate (Norvasc) 5 mg PO ONETIME ONE Stop: 08/09/20 17:13 Last Admin: 08/10/20 08:45 Dose: Not Given Documented by: Amlodipine Besylate (Norvasc) 10 mg PO BEDTIME [facility] Amlodipine Besylate (Norvasc) 5 mg PO BEDTIME [facility] Last Admin: 08/10/20 20:18 Dose: 5 mg Documented by: Amlodipine Besylate (Norvasc) 10 mg PO DAILY [facility] Chlorthalidone (Chlorthalidone) 12.5 mg PO DAILY [facility] Last Admin: 08/07/20 16:41 Dose: Not Given Documented by: Dexamethasone (Dexamethasone) 6 mg PO Q24H [facility] Stop: 08/13/20 16:01 Last Admin: 08/13/20 16:02 Dose: 6 mg Documented by: Diltiazem HCl (Cardizem) 10 mg IVPUSH ONETIME ONE Stop: 08/05/20 03:24 Last Admin: 08/05/20 03:34 Dose: 10 mg Documented by: Diltiazem HCl (Cardizem) 10 mg IVPUSH ONETIME ONE Stop: 08/05/20 04:05 Last Admin: 08/05/20 04:11 Dose: 10 mg Documented by: Enoxaparin Sodium (Lovenox) 30 mg SUBCUT Q12H [facility] Last Admin: 08/04/20 16:56 Dose: 30 mg Documented by: Enoxaparin Sodium (Lovenox) 30 mg SUBCUT Q12H [facility] Last Admin: 08/05/20 17:33 Dose: 30 mg Documented by: Famotidine (Pepcid) 20 mg IVPUSH ONETIME ONE Stop: 08/05/20 09:01 Last Admin: 08/05/20 09:43 Dose: Not Given Documented by: Furosemide (Lasix) 40 mg IVPUSH NOW [facility] Stop: 08/04/20 17:00 Furosemide (Lasix) 20 mg IVPUSH ONETIME ONE Stop: 08/04/20 22:01 Last Admin: 08/04/20 22:43 Dose: 20 mg Documented by: Furosemide (Lasix) 40 mg IVPUSH NOW ONE Stop: 08/06/20 14:16 Last Admin: 08/06/20 14:29 Dose: 40 mg Documented by: Dextrose/Sodium Chloride (Dextrose 5%-Normal Saline) 1,000 mls @ 150 mls/hr IV ASDIRECTED [facility] Last Admin: 08/04/20 10:51 Dose: 150 mls/hr Documented by: Remdesivir 200 mg/ Sodium (Chloride) 250 mls @ 250 mls/hr IV ONETIME ONE Stop: 08/04/20 14:33 Last Admin: 08/04/20 16:54 Dose: 250 mls/hr Documented by: Remdesivir 100 mg/ Sodium (Chloride) 100 mls @ 100 mls/hr IV Q24H [facility] Stop: 08/08/20 16:59 Last Admin: 08/08/20 15:31 Dose: 100 mls/hr Documented by: Azithromycin 500 mg/ Sodium (Chloride) 250 mls @ 250 mls/hr IV Q24H [facility] Stop: 08/06/20 17:59 Last Admin: 08/06/20 16:58 Dose: 250 mls/hr Documented by: Ceftriaxone Sodium 2 gm/ (Sodium Chloride) 100 mls @ 200 mls/hr IV Q24H [facility] Stop: 08/08/20 18:29 Last Admin: 08/08/20 17:36 Dose: 200 mls/hr Documented by: Sodium Chloride (Normal Saline) Confirm Administered Dose 250 mls @ as directed .ROUTE .STK-MED ONE Stop: 08/04/20 20:59 Last Admin: 08/04/20 21:14 Dose: 50 mls/hr Documented by: Potassium Chloride 10 meq/ (Premix) 100 mls @ 100 mls/hr IV Q1H [facility] Stop: 08/05/20 12:59 Last Admin: 08/05/20 12:51 Dose: 100 mls/hr Documented by: Piperacillin Sod/Tazobactam (Sod 4.5 gm/ Sodium Chloride) 100 mls @ 200 mls/hr IV ONETIME ONE Stop: 08/16/20 10:15 Last Admin: 08/16/20 11:05 Dose: 200 mls/hr Documented by: Sodium Chloride (Normal Saline) 500 mls @ 999 mls/hr IV .BOLUS ONE Stop: 08/16/20 10:47 Last Admin: 08/16/20 11:04 Dose: 999 mls/hr Documented by: Iopamidol (Isovue-370 (76%)) 100 ml IVPUSH ONETIME ONE Stop: 08/16/20 12:03 Last Admin: 08/16/20 12:25 Dose: 100 ml Documented by: Magnesium Hydroxide (Milk Of Magnesia) 30 ml PO ONETIME ONE Stop: 08/13/20 09:48 Last Admin: 08/13/20 09:56 Dose: 30 ml Documented by: Metoprolol Tartrate (Lopressor) 2.5 mg IVPUSH ONETIME ONE Stop: 08/05/20 07:47 Last Admin: 08/05/20 07:56 Dose: 2.5 mg Documented by: Metoprolol Tartrate (Lopressor) 50 mg PO BIDMEALS [facility] Last Admin: 08/06/20 08:24 Dose: 50 mg Documented by: Metoprolol Tartrate (Lopressor) 2.5 mg IVPUSH ONETIME ONE Stop: 08/05/20 08:13 Last Admin: 08/05/20 17:45 Dose: 2.5 mg Documented by: Metoprolol Tartrate (Lopressor) 75 mg PO BIDMEALS [facility] Last Admin: 08/11/20 17:36 Dose: 75 mg Documented by: Metoprolol Tartrate (Lopressor) 25 mg PO ONETIME ONE Stop: 08/06/20 09:31 Last Admin: 08/06/20 09:31 Dose: 25 mg Documented by: Non-Formulary Medication (Docusate Sodium [Colace]) 150 mg PO DAILY [facility] Potassium Chloride (Klor-Con M20) 40 meq PO ONETIME ONE Stop: 08/06/20 11:01 Last Admin: 08/06/20 11:58 Dose: 40 meq Documented by: - Exam Quality Assessment: Supplemental Oxygen (1!), DVT Prophylaxis. No: Urine Catheter General: Alert, Oriented, Cooperative, No Acute Distress HEENT: Pupils Equal, Pupils Reactive, Mucous Membr. Moist/[place] Neck: Supple, Trachea Midline Lungs: Normal Respiratory Effort, Decreased Breath Sounds Cardiovascular: Regular Rate, Regular Rhythm GI/Abdominal Exam: Normal Bowel Sounds, Soft, Non-Tender, No Distention (Female) Exam: Deferred Back Exam: Normal Inspection, Full Range of Motion Extremities: Normal Inspection, Normal Range of Motion, Non-Tender, No Pedal Edema, Normal Capillary Refill Skin: Warm, Dry, Intact Neurological: No New Focal Deficit Psy/Mental Status: Alert, Other (Minimal motivation ) Sepsis Event Note - Evaluation Sepsis Screening Result: No Definite Risk - Focused Exam Vital Signs: Vital Signs Temp Pulse Pulse Resp BP BP Pulse Ox 08/17/20 08:04 73 117/73 08/17/20 04:00 97.5 F 65 20 110/69 93 L - Problem List & Annotations (1) Acute hypoxemic respiratory failure SNOMED Code(s): 920159817 Code(s): J96.01 - ACUTE RESPIRATORY FAILURE WITH HYPOXIA Status: Acute Priority: High Current Visit: Yes (2) Atrial fibrillation with rapid ventricular response SNOMED Code(s): 773852173141709 Code(s): I48.91 - UNSPECIFIED ATRIAL FIBRILLATION Status: Resolved Priority: High Current Visit: Yes (3) COVID-19 determined by clinical diagnostic criteria SNOMED Code(s): 250161255, 843377709 Code(s): U07.1 - COVID-19 Status: Acute Priority: High Current Visit: Yes (4) Congestive heart failure (CHF) SNOMED Code(s): 11862503 Code(s): I50.9 - HEART FAILURE, UNSPECIFIED Status: Acute Priority: High Current Visit: Yes Qualifiers: Heart failure type: unspecified Heart failure chronicity: unspecified Qualified Code(s): I50.9 - Heart failure, unspecified (5) Hyponatremia SNOMED Code(s): 03730560 Code(s): E87.1 - HYPO-OSMOLALITY AND HYPONATREMIA Status: Acute Priority: High Current Visit: Yes (6) Hypoxia SNOMED Code(s): 379406346 Code(s): R09.02 - HYPOXEMIA Status: Acute Priority: High Current Visit: Yes (7) Leukocytosis, unspecified SNOMED Code(s): 893811576, 311207247 Code(s): D72.829 - ELEVATED WHITE BLOOD CELL COUNT, UNSPECIFIED Status: Acute Priority: High Current Visit: Yes Qualifiers: Leukocytosis type: monocytosis Qualified Code(s): D72.821 - Monocytosis (symptomatic) (8) New onset atrial fibrillation SNOMED Code(s): 51070590 Code(s): I48.91 - UNSPECIFIED ATRIAL FIBRILLATION Status: Acute Priority: High Current Visit: Yes (9) Pneumonia due to 2019 novel coronavirus SNOMED Code(s): 982073414088954842 Code(s): U07.1 - COVID-19; J12.89 - OTHER VIRAL PNEUMONIA Status: Acute Priority: High Current Visit: Yes (10) Essential tremor SNOMED Code(s): 733642605 Code(s): G25.0 - ESSENTIAL TREMOR Status: Chronic Priority: Medium Current Visit: Yes (11) CAD (coronary artery disease) SNOMED Code(s): 64225556 Code(s): I25.10 - ATHSCL HEART DISEASE OF [place] CORONARY ARTERY W/O ANG PCTRS Status: Chronic Priority: Low Current Visit: No Qualifiers: Coronary Disease-Associated Artery/Lesion type: unspecified vessel or lesion type [place] vs. transplanted heart: unspecified whether [place] or transplanted heart Associated angina: with unspecified angina Qualified Code(s): I25.119 - Atherosclerotic heart disease of [place] coronary artery with unspecified angina pectoris (12) GERD (gastroesophageal reflux disease) SNOMED Code(s): 495582681 Code(s): K21.9 - GASTRO-ESOPHAGEAL REFLUX DISEASE WITHOUT ESOPHAGITIS Status: Chronic Priority: Low Current Visit: No Qualifiers: Esophagitis presence: esophagitis presence not specified Qualified Code(s): K21.9 - Gastro-esophageal reflux disease without esophagitis (13) HTN (hypertension) SNOMED Code(s): 22085798 Code(s): I10 - ESSENTIAL (PRIMARY) HYPERTENSION Status: Chronic Priority: Low Current Visit: No Qualifiers: Hypertension type: essential hypertension Qualified Code(s): I10 - Es sential (primary) hypertension (14) Osteoarthritis SNOMED Code(s): 376468066 Code(s): M19.90 - UNSPECIFIED OSTEOARTHRITIS, UNSPECIFIED SITE Status: Chronic Priority: Low Current Visit: No Qualifiers: Osteoarthritis location: unspecified site Osteoarthritis type: unspecified Qualified Code(s): M19.90 - Unspecified osteoarthritis, unspecified site (15) Elevated d-dimer SNOMED Code(s): 986415161 Code(s): R79.89 - OTHER SPECIFIED ABNORMAL FINDINGS OF BLOOD CHEMISTRY Status: Acute Priority: High Current Visit: Yes (16) Pneumonia SNOMED Code(s): 975987043 Code(s): J18.9 - PNEUMONIA, UNSPECIFIED ORGANISM Status: Acute Priority: High Current Visit: Yes Qualifiers: Pneumonia type: due to unspecified organism Laterality: left Lung location: lower lobe of lung Qualified Code(s): J18.9 - Pneumonia, unspecified organism - Problem List Review Problem List Initiated/Reviewed/Updated: Yes - My Orders Last 24 Hours: My Active Orders 08/16/20 19:00 Piperacillin/Tazobactam [Piperacil-Tazobact] 4.5 gm Sodium Chloride 0.9% [Normal Saline] 100 ml IV Q8H 08/17/20 09:00 Potassium Chloride [Klor-Con M20] 40 meq PO BID 08/18/20 05:11 CBC WITH AUTO DIFF [HEME] AM CMP [COMPREHENSIVE METABOLIC PN,CMP] [CHEM] AM CRP [C-REACTIVE PROTEIN] [CHEM] AM MAGNESIUM [CHEM] AM 08/19/20 05:11 CBC WITH AUTO DIFF [HEME] AM CMP [COMPREHENSIVE METABOLIC PN,CMP] [CHEM] AM CRP [C-REACTIVE PROTEIN] [CHEM] AM MAGNESIUM [CHEM] AM 08/20/20 05:11 CBC WITH AUTO DIFF [HEME] AM CMP [COMPREHENSIVE METABOLIC PN,CMP] [CHEM] AM CRP [C-REACTIVE PROTEIN] [CHEM] AM MAGNESIUM [CHEM] AM - Assessment Assessment:: Assessment: Acute: Covid-19 Infection Viral Pneumonitis/Atypical Pneumonia Elevated d-dimer -Completed 2 units of convalescent plasma -Completed 5 day course of Veklury -Completed 5 days of Rocephin and 3 days of Azithromycin -10 day course of Dexamethasone competed -Continue IS and FV as directed -She is requiring oxygen today -CTA obtained - negative for PE but atelectasis vs. PNA noted. New onset A. fib with RVRresolved -Rate is well controlled on metoprolol tartrate 75 mg po BID -Anticoagulate secondary to A. fib with Eliquis -HR is well controlled: 60s-70s HTN -Vital signs every 4 hours -BP Meds: Metoprolol tartrate 75 mg po BID, Aldactone 25 mg po daily, Losartan 50 mg po BID, Norvasc 10 mg po daily, and PRN Lasix 20 mg po daily -Blood pressure is adequately controlled Hypo-osmolar hyponatremia, stable -She is not symptomatic -Na now at 133 -On Lasix 20 mg daily as needed -Continue fluid restriction to 1500 ml daily -Continue to monitor intake and output every 8 hours Congestive heart failure (CHF) with Preserved EF -Elevated proBNP of 799 -Has likely pulmonary HTN -2D echo shows normal EF 60-65%. No RWMA. Moderate calcification and thickening of mitral leaflets. Moderate-Severe RVSP at 62.7 mmHg -Continue Lasix and Aldactone -1.5 L for fluid restriction and AHA diet -Follow-up chest x-ray 08/13/2020 read as nothing acute seen Leukocytosis, POA, -Likely from underlying infection but also on steroids -Will monitor -Decreased today 13.20 --> 24.15-->34.33-->30.33 -R/o secondary infection Mild Hypochloremia with Cl, 96, POA, resolved Hyperglycemia, POA, resolved -Likely due to steroid and now on steroids -Carries no hx/o diabetes or glucose intolerance -We will monitor Elevated CRP level of 28.4, POA -Most recent level of 30.6 -Unsure why elevated again -Patient coughing and reporting feeling bad/weak Hypoalbuminemia, POA -Albumin of 2.8; now 1.8 -[facility] following -Nursing reporting minimal intake Macrocytic Normochromic Anemia with Hgb of 9.5, stable Chronic: Impaired Vision and Hearing HTN HLD Hx/o [place] CAD S/p stents placement Asthma HIWOT Chronic Constipation Recurrent UTI OA Hx/o esophageal cancer Hx/o Splenectomy Anxiety ET - Plan Plan:: 08/04/20 * 85-year-old female with gradual onset weakness, cough, decreased appetite, fever chills and diaphoresis that started about a week ago. Has been exposed to COVID-19 about 2 weeks ago at a . * Presented to the emergency department and was hypoxemic at 86% on room air. * Initial vital signs in the emergency department reveal a temp of 37.3 Celsius, pulse 84, respiratory rate 20, pressure 170/68, pulse ox 91% on 2 L of oxygen per nasal cannula * Labs in the ED revealed WBC 14.19, sodium 126, potassium 4.1, BUN 8, creatinine 0.6, GFR greater than 60, lactic acid 1.4, LDH 221, troponin I 0.019, C-reactive protein 18.7, D-dimer 1.03, ferritin 142, proBNP 2163, she is Covid positive, urinalysis is unremarkable for infection. Sets of blood cultures were also collected in the emergency department. * Portable chest x-ray reveals a mild increase in interstitial lung markings bilaterally. There is a nodule airspace opacity within the right midlung zone. Findings suggest a pneumonic infiltrate. Consider atypical viral etiology. Pleural spaces otherwise unremarkable with no pleural effusion or pneumothorax. Heart size is mildly prominent. 08/05/2020 * New onset atrial fibrillation with RVR overnight. Stabilized with IV metoprolol and oral metoprolol. * Patient did have some chest pain with the chest pain and her troponin increased slightly to 0.06 * Patient's chest pain when I examined was mostly in her abdomen. This did resolve with resolution of her A. fib RVR. * Patient continues to have hyponatremia 129, white count is elevated at 15.1 likely secondary to inflammation, hypokalemia with potassium of 3.2 and worsening of her proBNP at 3894. * Procalcitonin is less than 0.05. This makes it unlikely that her white count is secondary to significant bacterial infection. PLAN: Pneumonia due to 2019 novel coronavirus, Acute hypoxemic respiratory failure * Convalescent plasma 2 units today. I spoke with the patient to provide information about convalescent plasma for herself. I offered her the fax sheet for patients and caregivers for COVID-19 convalescent plasma to read and review. I stated the therapy has been approved by an emergency youth authorization process and has not fully been FDA reviewed or approved. I shared potential risks from the therapy including transmission of blood-borne pathogen such as HIV and hepatitis C, allergic and transfusion related reactions, post transfusion purpura. Additionally theoretical risks including a phenomenon called antibodydependent enhancement of infection such as seen in dengue or attenuation of an immune response that may make patients more susceptible to reinfection. I discussed there are other potential treatment options that are currently not FDA approved to treat COVID-19. Offered opportunity to ask questions and all questions were answered. The patient voiced understanding and agreed to proceed with treatment for herself. * Remdesivir 200 mg IV x1 dose then 100 mg daily x4 more doses. * Dexamethasone 6 mg p.o. daily x10 days * Rocephin 2 g daily x5 days * Zithromax 500 mg IV daily x3 days * Incentive spirometer and flutter valve every hour while awake 08/06/20 New onset A. fib with RVR * Rate is still not controlled on current dose of metoprolol. Increase metoprolol to 75 mg by mouth twice daily. * Anticoagulate secondary to A. fib with Eliquis HTN (hypertension) * Vital signs every 4 hours * Readjust antihypertensives based on blood pressure and adjustment of met oprolol Hyponatremia * Restart Lasix in the morning 20 mg daily as needed * 1500 mL fluid restriction every 24 hours * Monitor intake and output every 8 hours Congestive heart failure (CHF) * Furosemide 40mg IV x 1 dose today. * Follow-up chest x-rays as needed * Echocardiogram pending [facility] for stroke and DVT prophylaxis Patient is a DNR/DNI PT OT to eval and treat Dietitian consult regarding patient's caloric needs marketing services rep and case management for discharge planning Respiratory therapy to titrate oxygen to keep O2 saturations between 88 and 94% Change patient to MedSurg status with telemetry and continuous pulse oximetry. Discontinue Adkins catheter, but maintain strict VIJAYA and daily weight Patient will be here greater than 96 hours due to the standard 5-day treatment course for Covid 08/07/20 New onset A. fib with RVR * Rate is well controlled on metoprolol * Anticoagulate secondary to A. fib with Eliquis HTN (hypertension) * Vital signs every 4 hours * Readjust antihypertensives based on blood pressure and adjustment of metoprolol * Start chlorthalidone 12.5 mg daily Hyponatremia * Restart Lasix in the morning 20 mg daily as needed * 1500 mL fluid restriction every 24 hours * Monitor intake and output every 8 hours * Sodium 129 today. Upon further investigation and patient's previous hospital visits, this is a chronic issue. Will have patient's primary physician follow-up regarding this as patient is asymptomatic. Congestive heart failure (CHF) * Follow-up chest x-rays as needed * Lasix 20 mg daily as needed 08/08/2020 New onset A. fib with RVRstable * Rate is well controlled on metoprolol * Anticoagulate secondary to A. fib with Eliquis HTN (hypertension) * Vital signs every 4 hours * Readjust antihypertensives based on blood pressure and adjustment of metoprolol * Chlorthalidone was held secondary to hyponatremia * Norvasc restarted at a lower dose of 5 mg daily Hyponatremia * Lasix in the morning 20 mg daily as needed * 1500 mL fluid restriction every 24 hours * Monitor intake and output every 8 hours * Sodium 131 today. Upon further investigation and patient's previous hospital visits, this is a chronic issue. Will have patient's primary physician follow-up regarding this as patient is asymptomatic. Congestive heart failure (CHF) * Follow-up chest x-rays as needed * Lasix 20 mg daily as needed 08/09/2020 New onset A. fib with RVRstable * Rate is well controlled on metoprolol * Anticoagulate secondary to A. fib with Eliquis HTN (hypertension) * Vital signs every 4 hours * Readjust antihypertensives based on blood pressure and adjustment of metoprolol * Chlorthalidone was held secondary to hyponatremia * Norvasc restarted at a lower dose of 5 mg at bedtime Hyponatremia * Lasix in the morning 20 mg daily as needed * 1500 mL fluid restriction every 24 hours * Monitor intake and output every 8 hours * Sodium 133improvedtoday. Upon further investigation and patient's previous hospital visits, this is a chronic issue. Will have patient's primary physician follow-up regarding this as patient is asymptomatic. Congestive heart failure (CHF) * Follow-up chest x-rays as needed * Lasix 20 mg daily as needed 08/10/2020 New onset A. fib with RVRstable * Rate is well controlled on metoprolol * Anticoagulate secondary to A. fib with Eliquis HTN (hypertension) * Vital signs every 4 hours * Readjust antihypertensives based on blood pressure and adjustment of metoprolol * Chlorthalidone was held secondary to hyponatremia * Norvasc restarted at a lower dose of 5 mg at bedtime * Blood pressure is adequately treated Hyponatremia * Lasix 20 mg daily as needed * Increase fluid restriction to 2000 mL * Monitor intake and output every 8 hours * Recheck labs in the morning. Congestive heart failure (CHF) * Follow-up chest x-rays as needed * Lasix 20 mg daily as needed * Continue metoprolol Eliquis for stroke and DVT prophylaxis Patient is a DNR/DNI PT OT to eval and treat marketing services rep and case management for discharge planning patient has agreed to go to [facility] upon discharge. Respiratory therapy to titrate oxygen to keep O2 saturations between 88 and 94% Patient will be here greater than 96 hours due to the standard 5-day treatment course for Covid 08/11/2020 New onset A. fib with RVRstable * Rate is well controlled on metoprolol * Anticoagulate secondary to A. fib with Eliquis HTN (hypertension) * Vital signs every 4 hours * Readjust antihypertensives based on blood pressure and adjustment of metoprolol * Norvasc raised to 10 mg daily. This is her home dose. * Blood pressure is adequately treated Hyponatremia * Lasix 20 mg daily as needed * Increase fluid restriction to 2000 mL * Monitor intake and output every 8 hours Congestive heart failure (CHF) * Follow-up chest x-rays as needed * Lasix 20 mg daily as needed * Continue metoprolol Eliquis for stroke and DVT prophylaxis Patient is a DNR/DNI PT OT to eval and treat marketing services rep and case management for discharge planning patient has agreed to go to [facility] upon discharge. Awaiting acceptance to custodial. Respiratory therapy to titrate oxygen to keep O2 saturations between 88 and 94% Patient will be here greater than 96 hours due to the standard 5-day treatment course for Covid 08/12/2020 Continue steroid therapy Routine AM Labs Encourage to ambulate inside her room as much as she can IS and FV as directed Fluid restriction to 1500 ml daily Chest x-ray in AM Worksite Wellness Practitioner following PT/OT to assess and treat She is being evaluated by Eliceo Love'robert MS LOS> 96hrs and pending placement due to new rules/protocol for covid-patient custodial placement 08/13/2020 Continue steroid therapy Routine AM Labs Encourage to ambulate inside her room as much as she can IS and FV as directed Continue Fluid restriction to 1500 ml daily Worksite Wellness Practitioner following PT/OT to assess and treat Discharge to [facility] this Tuesday per 08/14/2020 Completed 10 day course of Dexamethasone Routine AM Labs Encourage to ambulate inside her room as much as she can IS and FV as directed Continue Fluid restriction to 1500 ml daily Worksite Wellness Practitioner following PT/OT to assess and treat Discharge to [facility] this Tuesday @ 1300 per SW 08/15/2020 Completed COVID-19 treatment Reports she "feels horrible today" - SOB, general myalgias, cough Reports coughing fit last night Continue IS/Acapella Continue fluid restriction Continue PT/OT CXR ordered WBC increased to 24.15 Recheck labs in AM Procalcitonin ordered Monitor need for oxygen Will hold off discharge today to investigate increasing leukocytosis (steroid vs secondary infection) Plan for discharge Tuesday08/18/20 08/16/2020 Patient reports she feels better today and that "it may have been the weather" WBC again elevated at 34.33 CRP elevated at 30.4 D-dimer 2.64 CTA obtained and shows atelectasis vs PNA in left lung base Procalcitonin obtained from 08/15/20 and was negative Discussed with Dr. Tucker - will start zosyn with concerns of secondary infection Patient had completed 5 day course of rocephin on 08/08/2020 and 3 day course of azithromycin Will monitor daily labs Requiring 1L oxygen today Continue IS/Acapella RT continuing to work with patient Continue fluid restriction 08/17/2020 Patient reports being very weak today - discussed lack of motivation and deconditioning WBC improved to 30.33 CRP stable at 30.6 D-dimer down to 0.[address] Tucker - will stop zosyn and start PO augmentin Requiring 1L oxygen today Encourage improved PO intake Continue IS/acapella Planning on discharge tomorrow - 08/18/2020 to [facility]
[2020-08-17] MEDS: Albuterol 6.7 GM Inhaler INH PRN ×2 (12:29→21:33)
[2020-08-17] MEDS: ALPRAZolam 0.25 MG Tab PO PRN (12:58)
[2020-08-17] MEDS: Acetaminophen 325 MG Tab PO PRN ×2 (12:58→20:39)
[2020-08-17] MEDS: Docusate Sodium 100 MG Cap PO PRN (20:26)
[2020-08-17] MEDS: Gabapentin 300 MG Cap PO SCH (20:26)
[2020-08-17] MEDS: Magnesium Hydroxide 400 MG/5 ML Susp 30 ML Cup PO PRN (20:27)
[2020-08-17] MEDS ORDERED: Amoxicillin/Clavulanate K 500-125 MG Tab PO SCH (21:00)
[2020-08-17] MEDS: amLODIPine 10 MG Tab PO SCH (21:22)
[2020-08-17] MEDS: Codeine/guaiFENesin 10-100 MG/5 ML Syrup 5 ML Cup PO PRN (21:49)
[2020-08-17] MEDS: LOVASTATIN 80 MG PO SCH (22:08)
[2020-08-18] MEDS: Piperacillin/Tazobactam 4.5 GM in Sodium Chloride 0.9% 100 ML IV SCH ×3 (03:48→18:14)
[2020-08-18] MEDS: Fluticasone Propionate Nasal Spray 16 GM Bottle NAS SCH ×2 (08:09→20:25)
[2020-08-18] MEDS: Ezetimibe 10 MG Tab PO SCH (08:11)
[2020-08-18] MEDS: Zinc Sulfate 220 MG Cap PO SCH (08:11)
[2020-08-18] MEDS: Spironolactone 25 MG Tab PO SCH (08:11)
[2020-08-18] MEDS: Apixaban 5 MG Tab PO SCH ×2 (08:11→20:24)
[2020-08-18] MEDS: guaiFENesin 600 MG Tab.ER PO SCH ×3 (08:11→20:24)
[2020-08-18] MEDS: Cholecalciferol (Vitamin D3) 25 MCG Tab PO SCH (08:12)
[2020-08-18] MEDS: Aspirin 81 MG Tab.EC PO SCH (08:12)
[2020-08-18] MEDS: Primidone 50 MG Tab PO SCH ×2 (08:13→20:23)
[2020-08-18] MEDS: Lidocaine 4% 1 each Patch TOP SCH ×2 (08:20→10:54)
[2020-08-18] MEDS ORDERED: Magnesium Hydroxide 400 MG/5 ML Susp 30 ML Cup PO ONE (08:56)
--- NOTE | 2020-08-18 09:08 | CR ---
Chest: Portable view of the chest was obtained. Comparison: Prior chest x-ray of 08/15/20 Thick area of atelectasis is seen with the left base. Linear area of scarring is noted within the left upper lobe. Mild blunting of the left lateral costophrenic angle is seen which is most likely chronic. No definite acute parenchymal change is otherwise seen. Heart size and mediastinum are normal. Impression: 1. Persisting atelectasis with the left base with linear scar within the left upper lung. 2. Nothing acute is otherwise definitely appreciated. Diagnostic code #2
[2020-08-18] MEDS: Losartan 25 MG Tab PO SCH ×2 (09:23→20:24)
[2020-08-18] MEDS: Metoprolol Tartrate 25 MG Tab PO SCH ×2 (09:23→20:24)
[2020-08-18] MEDS ORDERED: Lidocaine 4% 1 each Patch TOP PRN (10:49)
--- NOTE | 2020-08-18 13:20 | PCM.PN ---
- General Info Date of Service: 08/18/20 Admission Dx/Problem (Free Text): Admission Diagnosis/Problem Admission Diagnosis/Problem Weakness Subjective Update: Patient reports feeling weaker today. Back on oxygen at 1 L per nasal cannula. Nursing staff reports patient is not able to feed herself and needs the assistance of the Ny lift for mobility. Functional Status: Reports: Pain Controlled, Tolerating Diet, Urinating, Incentive Spirometry. Denies: Ambulating (significant new onset of generalized weakness noted) - Review of Systems General: Reports: Weakness HEENT: Reports: No Symptoms Pulmonary: Reports: Cough. Denies: Shortness of Breath, Pleuritic Chest Pain, Sputum, Wheezing Cardiovascular: Reports: No Symptoms. Denies: Palpitations, Dyspnea on Exertion, Edema Gastrointestinal: Reports: Constipation Genitourinary: Reports: No Symptoms Musculoskeletal: Reports: No Symptoms Skin: Reports: No Symptoms Neurological: Reports: No Symptoms Psychiatric: Reports: No Symptoms - Patient Data Vitals - Most Recent: Last Vital Signs Temp 97.5 F 08/18/20 03:47 Pulse 73 08/18/20 09:23 Resp 16 08/18/20 11:00 BP 115/58 L 08/18/20 09:23 Pulse Ox 99 08/18/20 09:21 Weight - Most Recent: 136 lb 8 oz I&O - Last 24 Hours: Intake & Output 08/17/20 08/18/20 08/18/20 22:59 06:59 14:59 Intake Total 700 300 120 Balance 700 300 120 Lab Results Last 24 Hours: Laboratory Results - last 24 hr 08/18/20 08/18/20 08/18/20 Range/Units 05:51 05:51 11:00 WBC 13.28 H (3.98-10.04) K/mm3 RBC 2.97 L (3.98-5.22) M/mm3 Hgb 8.9 L (11.2-15.7) gm/dl Hct 28.1 L (34.1-44.9) % MCV 94.6 (79.4-94.8) fl MCH 30.0 (25.6-32.2) pg MCHC 31.7 L (32.2-35.5) g/dl RDW Std Deviation 52.2 H (36.4-46.3) fL Plt Count 267 (182-369) K/mm3 MPV 10.3 (9.4-12.3) fl Neut % (Auto) 41.4 (34.0-71.1) % Lymph % (Auto) 13.0 L (19.3-51.7) % Sanders % (Auto) 43.4 H (4.7-12.5) % Eos % (Auto) 1.8 (0.7-5.8) Baso % (Auto) 0.2 (0.1-1.2) % Neut # (Auto) 5.49 (1.56-6.13) K/mm3 Lymph # (Auto) 1.73 (1.18-3.74) K/mm3 Sanders # (Auto) 5.77 H (0.24-0.36) K/mm3 Eos # (Auto) 0.24 (0.04-0.36) K/mm3 Baso # (Auto) 0.02 (0.01-0.08) K/mm3 Manual Slide Review Abnormal smear Sodium 132 L (136-145) mEq/L Potassium 5.1 D (3.5-5.1) mEq/L Chloride 99 (98-107) mEq/L Carbon Dioxide 26 (21-32) mEq/L Anion Gap 12.1 (5-15) BUN 23 H (7-18) mg/dL Creatinine 0.7 (0.55-1.02) mg/dL Est Cr Clr Drug Dosing 41.44 mL/min Estimated GFR (MDRD) > 60 (>60) mL/min BUN/Creatinine Ratio 32.9 H (14-18) Glucose 95 (83-115) mg/dL Calcium 7.8 L (8.5-10.1) mg/dL Magnesium 2.5 H (1.8-2.4) mg/dl Total Bilirubin 0.3 (0.2-1.0) mg/dL AST 50 H (15-37) U/L ALT 42 (14-59) U/L Alkaline Phosphatase 63 (46-116) U/L C-Reactive Protein 32.4 H* (<1.0) mg/dL Total Protein 6.1 L (6.4-8.2) g/dl Albumin 1.7 L (3.4-5.0) g/dl Globulin 4.4 gm/dL Albumin/Globulin Ratio 0.4 L (1-2) Urine Color Yellow (Yellow) Urine Appearance Clear (Clear) Urine pH 6.0 (5.0-8.0) Ur Specific [place] 1.025 (1.005-1.030) Urine Protein 1+ H (Negative) Urine Glucose (UA) Negative (Negative) Urine Ketones Negative (Negative) Urine Occult Blood Negative (Negative) Urine Nitrite Negative (Negative) Urine Bilirubin Negative (Negative) Urine Urobilinogen 0.2 (0.2-1.0) Ur Leukocyte Esterase Negative (Negative) Urine RBC 0-5 (0-5) /hpf Urine WBC 0-5 (0-5) /hpf Ur Epithelial Cells 0-5 (0-5) /hpf Urine Bacteria Few (FEW) /hpf Urine Mucus Few (FEW) /hpf [place] Results Last 24 Hours: Microbiology 08/18/20 11:00 Occult Blood - Preliminary Stool / Feces Med Orders - Current: Current Medications Acetaminophen (Tylenol) 650 mg PO Q4H PRN PRN Reason: Pain (Mild 1-3)/fever Last Admin: 08/17/20 20:39 Dose: 650 mg Documented by: Albuterol (Proventil Neb Soln) 2.5 mg NEB Q2H PRN PRN Reason: Shortness Of Breath/wheezing Albuterol (Proventil Hfa) 2 gm INH Q4H PRN PRN Reason: SOB/Cough Last Admin: 08/17/20 21:33 Dose: 2 puff Documented by: Alprazolam (Xanax) 0.25 mg PO Q12H PRN PRN Reason: Anxiety Last Admin: 08/17/20 12:58 Dose: 0.25 mg Documented by: Amlodipine Besylate (Norvasc) 10 mg PO BEDTIME [facility] Last Admin: 08/17/20 21:22 Dose: 10 mg Documented by: Apixaban (Eliquis) 5 mg PO BID [facility] Last Admin: 08/18/20 08:11 Dose: 5 mg Documented by: Aspirin (Halfprin) 81 mg PO DAILY [facility] Last Admin: 08/18/20 08:12 Dose: 81 mg Documented by: Benzocaine/Menthol (Cepacol Sore Throat) 1 lozenge MUCMEM ASDIRECTED PRN PRN Reason: Cough Last Admin: 08/15/20 04:52 Dose: 1 lozenge Documented by: Benzonatate (Tessalon Perles) 200 mg PO QID PRN PRN Reason: Cough Last Admin: 08/16/20 20:43 Dose: 200 mg Documented by: Calcium Carbonate/Glycine (Tums) 1,000 mg PO Q2H PRN PRN Reason: Indigestion Last Admin: 08/12/20 10:47 Dose: 1,000 mg Documented by: Cholecalciferol (Vitamin D3) 25 mcg PO DAILY [facility] Last Admin: 08/18/20 08:12 Dose: 25 mcg Documented by: Docusate Sodium (Colace) 100 mg PO BID PRN PRN Reason: Constipation Last Admin: 08/17/20 20:26 Dose: 100 mg Documented by: Ezetimibe (Zetia) 10 mg PO DAILY [facility] Last Admin: 08/18/20 08:11 Dose: 10 mg Documented by: Fluticasone Propionate (Flonase) 0 gm LINDA BID [facility] Last Admin: 08/18/20 08:09 Dose: 1 spray Documented by: Furosemide (Lasix) 20 mg PO DAILY PRN PRN Reason: Edema Gabapentin (Neurontin) 300 mg PO BEDTIME [facility] Last Admin: 08/17/20 20:26 Dose: 300 mg Documented by: Guaifenesin (Mucinex) 600 mg PO TID [facility] Last Admin: 08/18/20 08:11 Dose: 600 mg Documented by: Guaifenesin/Codeine Phosphate (Robitussin Ac) 5 ml PO Q4H PRN PRN Reason: Cough Last Admin: 08/17/20 21:49 Dose: 5 ml Documented by: Piperacillin Sod/Tazobactam (Sod 4.5 gm/ Sodium Chloride) 100 mls @ 25 mls/hr IV Q8H [facility] Last Admin: 08/18/20 10:38 Dose: 25 mls/hr Documented by: Lidocaine (Aspercreme 4%) 1 each TOP DAILY PRN PRN Reason: Pain Losartan Potassium (Cozaar) 50 mg PO BID [facility] Last Admin: 08/18/20 09:23 Dose: 50 mg Documented by: Magnesium Hydroxide (Milk Of Magnesia) 30 ml PO Q4H PRN PRN Reason: Constipation Last Admin: 08/17/20 20:27 Dose: 30 ml Documented by: Meclizine HCl (Antivert) 25 mg PO Q6H PRN PRN Reason: Dizziness Last Admin: 08/14/20 12:26 Dose: 25 mg Documented by: Metoprolol Tartrate (Lopressor) 75 mg PO BID [facility] Last Admin: 08/18/20 09:23 Dose: 75 mg Documented by: Miscellaneous Information (Remove Patch) 1 ea TRDERM BEDTIME [facility] Last Admin: 08/17/20 22:07 Dose: 1 ea Documented by: Nitroglycerin (Nitrostat) 0.4 mg SL ASDIRECTED PRN PRN Reason: Chest Pain Lovastatin 80 Mg (Ptom) 80 mg PO BEDTIME [facility] Last Admin: 08/17/20 22:08 Dose: Not Given Documented by: Ondansetron HCl (Zofran) 4 mg IV Q4H PRN PRN Reason: Nausea/Vomiting Primidone (Mysoline) 300 mg PO BID [facility] Last Admin: 08/18/20 08:13 Dose: 300 mg Documented by: Promethazine HCl/Codeine (Phenergan With Codeine) 5 ml PO Q4HR PRN PRN Reason: Cough Last Admin: 08/17/20 03:53 Dose: 5 ml Documented by: Sodium Chloride (Saline Flush) 10 ml FLUSH ASDIRECTED PRN PRN Reason: Keep Vein Open Last Admin: 08/16/20 12:25 Dose: 10 ml Documented by: Spironolactone (Aldactone) 25 mg PO DAILY [facility] Last Admin: 08/18/20 08:11 Dose: 25 mg Documented by: Zinc Sulfate (Zincate) 220 mg PO DAILY [facility] Last Admin: 08/18/20 08:11 Dose: 220 mg Documented by: Discontinued Medications Acetaminophen (Tylenol) 975 mg PO ONETIME ONE Stop: 08/04/20 10:01 Last Admin: 08/04/20 10:52 Dose: 975 mg Documented by: Al Hydroxide/Mg Hydroxide (Mag-Al Plus) 30 ml PO Q4H PRN PRN Reason: Heartburn Stop: 08/07/20 04:13 Last Admin: 08/05/20 04:23 Dose: 30 ml Documented by: Amlodipine Besylate (Norvasc) 5 mg PO BEDTIME [facility] Last Admin: 08/08/20 21:01 Dose: 5 mg Documented by: Amlodipine Besylate (Norvasc) 5 mg PO ONETIME ONE Stop: 08/09/20 17:13 Last Admin: 08/10/20 08:45 Dose: Not Given Documented by: Amlodipine Besylate (Norvasc) 10 mg PO BEDTIME [facility] Amlodipine Besylate (Norvasc) 5 mg PO BEDTIME [facility] Last Admin: 08/10/20 20:18 Dose: 5 mg Documented by: Amlodipine Besylate (Norvasc) 10 mg PO DAILY [facility] Amoxicillin/Clavulanate Potassium (Augmentin 500 Mg\\125 Mg) 1 tab PO Q12HR [facility] Last Admin: 08/17/20 21:22 Dose: 1 tab Documented by: Chlorthalidone (Chlorthalidone) 12.5 mg PO DAILY [facility] Last Admin: 08/07/20 16:41 Dose: Not Given Documented by: Dexamethasone (Dexamethasone) 6 mg PO Q24H [facility] Stop: 08/13/20 16:01 Last Admin: 08/13/20 16:02 Dose: 6 mg Documented by: Diltiazem HCl (Cardizem) 10 mg IVPUSH ONETIME ONE Stop: 08/05/20 03:24 Last Admin: 08/05/20 03:34 Dose: 10 mg Documented by: Diltiazem HCl (Cardizem) 10 mg IVPUSH ONETIME ONE Stop: 08/05/20 04:05 Last Admin: 08/05/20 04:11 Dose: 10 mg Documented by: Enoxaparin Sodium (Lovenox) 30 mg SUBCUT Q12H [facility] Last Admin: 08/04/20 16:56 Dose: 30 mg Documented by: Enoxaparin Sodium (Lovenox) 30 mg SUBCUT Q12H [facility] Last Admin: 08/05/20 17:33 Dose: 30 mg Documented by: Famotidine (Pepcid) 20 mg IVPUSH ONETIME ONE Stop: 08/05/20 09:01 Last Admin: 08/05/20 09:43 Dose: Not Given Documented by: Furosemide (Lasix) 40 mg IVPUSH NOW [facility] Stop: 08/04/20 17:00 Furosemide (Lasix) 20 mg IVPUSH ONETIME ONE Stop: 08/04/20 22:01 Last Admin: 08/04/20 22:43 Dose: 20 mg Documented by: Furosemide (Lasix) 40 mg IVPUSH NOW ONE Stop: 08/06/20 14:16 Last Admin: 08/06/20 14:29 Dose: 40 mg Documented by: Dextrose/Sodium Chloride (Dextrose 5%-Normal Saline) 1,000 mls @ 150 mls/hr IV ASDIRECTED [facility] Last Admin: 08/04/20 10:51 Dose: 150 mls/hr Documented by: Remdesivir 200 mg/ Sodium (Chloride) 250 mls @ 250 mls/hr IV ONETIME ONE Stop: 08/04/20 14:33 Last Admin: 08/04/20 16:54 Dose: 250 mls/hr Documented by: Remdesivir 100 mg/ Sodium (Chloride) 100 mls @ 100 mls/hr IV Q24H [facility] Stop: 08/08/20 16:59 Last Admin: 08/08/20 15:31 Dose: 100 mls/hr Documented by: Azithromycin 500 mg/ Sodium (Chloride) 250 mls @ 250 mls/hr IV Q24H [facility] Stop: 08/06/20 17:59 Last Admin: 08/06/20 16:58 Dose: 250 mls/hr Documented by: Ceftriaxone Sodium 2 gm/ (Sodium Chloride) 100 mls @ 200 mls/hr IV Q24H [facility] Stop: 08/08/20 18:29 Last Admin: 08/08/20 17:36 Dose: 200 mls/hr Documented by: Sodium Chloride (Normal Saline) Confirm Administered Dose 250 mls @ as directed .ROUTE .STK-MED ONE Stop: 08/04/20 20:59 Last Admin: 08/04/20 21:14 Dose: 50 mls/hr Documented by: Diltiazem HCl 100 mg/ Sodium (Chloride) 100 mls @ 5 mls/hr IV TITRATE [facility]; Protocol Last Titration: 08/05/20 08:00 Dose: 0 mg/hr, 0 mls/hr Documented by: Potassium Chloride 10 meq/ (Premix) 100 mls @ 100 mls/hr IV Q1H [facility] Stop: 08/05/20 12:59 Last Admin: 08/05/20 12:51 Dose: 100 mls/hr Documented by: Piperacillin Sod/Tazobactam (Sod 4.5 gm/ Sodium Chloride) 100 mls @ 200 mls/hr IV ONETIME ONE Stop: 08/16/20 10:15 Last Admin: 08/16/20 11:05 Dose: 200 mls/hr Documented by: Sodium Chloride (Normal Saline) 500 mls @ 999 mls/hr IV .BOLUS ONE Stop: 08/16/20 10:47 Last Admin: 08/16/20 11:04 Dose: 999 mls/hr Documented by: Sodium Chloride (Normal Saline) 100 mls @ 75 mls/hr IV ASDIRECTED [facility] Iopamidol (Isovue-370 (76%)) 100 ml IVPUSH ONETIME ONE Stop: 08/16/20 12:03 Last Admin: 08/16/20 12:25 Dose: 100 ml Documented by: Lidocaine (Aspercreme 4%) 1 each TOP DAILY [facility] Last Admin: 08/18/20 10:54 Dose: 1 each Documented by: Magnesium Hydroxide (Milk Of Magnesia) 30 ml PO ONETIME ONE Stop: 08/13/20 09:48 Last Admin: 08/13/20 09:56 Dose: 30 ml Documented by: Magnesium Hydroxide (Milk Of Magnesia) 30 ml PO ONETIME ONE Stop: 08/18/20 08:57 Last Admin: 08/18/20 09:23 Dose: 30 ml Documented by: Metoprolol Tartrate (Lopressor) 2.5 mg IVPUSH ONETIME ONE Stop: 08/05/20 07:47 Last Admin: 08/05/20 07:56 Dose: 2.5 mg Documented by: Metoprolol Tartrate (Lopressor) 50 mg PO BIDMEALS [facility] Last Admin: 08/06/20 08:24 Dose: 50 mg Documented by: Metoprolol Tartrate (Lopressor) 2.5 mg IVPUSH ONETIME ONE Stop: 08/05/20 08:13 Last Admin: 08/05/20 17:45 Dose: 2.5 mg Documented by: Metoprolol Tartrate (Lopressor) 75 mg PO BIDMEALS [facility] Last Admin: 08/11/20 17:36 Dose: 75 mg Documented by: Metoprolol Tartrate (Lopressor) 25 mg PO ONETIME ONE Stop: 08/06/20 09:31 Last Admin: 08/06/20 09:31 Dose: 25 mg Documented by: Non-Formulary Medication (Docusate Sodium [Colace]) 150 mg PO DAILY [facility] Potassium Chloride (Klor-Con M20) 40 meq PO ONETIME ONE Stop: 08/06/20 11:01 Last Admin: 08/06/20 11:58 Dose: 40 meq Documented by: Potassium Chloride (Klor-Con M20) 40 meq PO BID [facility] Stop: 08/18/20 09:01 Last Admin: 08/17/20 20:26 Dose: 40 meq Documented by: - Exam Quality Assessment: Supplemental Oxygen (1 liter per nasal cannula), DVT Prophylaxis (Eliquis) General: Alert, Oriented, Cooperative, No Acute Distress HEENT: Pupils Equal, Pupils Reactive, Mucous Membr. Moist/Kevil Neck: Supple, Trachea Midline. No: Lymphadenopathy Lungs: Clear to Auscultation, Normal Respiratory Effort Cardiovascular: Regular Rate, Regular Rhythm, Murmurs (Grade 2 systolic murmur) GI/Abdominal Exam: Normal Bowel Sounds, Soft, Non-Tender, No Distention (Female) Exam: Deferred Back Exam: Normal Inspection, Full Range of Motion Extremities: Normal Inspection, Normal Range of Motion, Non-Tender, No Pedal Edema, Normal Capillary Refill Peripheral Pulses: 2+: Radial (L), Radial (R), Dorsalis Pedis (L), Dorsalis Pedi s (R) Skin: Warm, Dry Neurological: No New Focal Deficit Psy/Mental Status: Alert, Normal Affect, Normal Mood Sepsis Event Note - Evaluation Sepsis Screening Result: No Definite Risk - Focused Exam Vital Signs: Vital Signs Temp Pulse Resp BP Pulse Ox 08/18/20 11:00 16 08/18/20 10:00 19 08/18/20 09:23 73 115/58 L 08/18/20 09:21 73 99 08/18/20 09:00 18 08/18/20 08:11 68 16 110/58 L 97 08/18/20 08:08 64 18 108/55 L 97 08/18/20 08:00 17 08/18/20 07:00 19 08/18/20 06:00 16 08/18/20 05:00 21 H 08/18/20 04:00 16 08/18/20 03:47 97.5 F 60 16 119/65 96 08/18/20 03:00 21 H 08/18/20 02:00 21 H - Problem List & Annotations (1) Pneumonia due to 2019 novel coronavirus SNOMED Code(s): 610264329879549773 Code(s): U07.1 - COVID-19; J12.89 - OTHER VIRAL PNEUMONIA Status: Acute Priority: High Current Visit: Yes (2) Acute hypoxemic respiratory failure SNOMED Code(s): 428321941 Code(s): J96.01 - ACUTE RESPIRATORY FAILURE WITH HYPOXIA Status: Acute Priority: High Current Visit: Yes (3) HTN (hypertension) SNOMED Code(s): 61425204 Code(s): I10 - ESSENTIAL (PRIMARY) HYPERTENSION Status: Chronic Priority: Low Current Visit: No Qualifiers: Hypertension type: essential hypertension Qualified Code(s): I10 - Essential (primary) hypertension (4) Hyponatremia SNOMED Code(s): 68480456 Code(s): E87.1 - HYPO-OSMOLALITY AND HYPONATREMIA Status: Acute Priority: High Current Visit: Yes (5) Congestive heart failure (CHF) SNOMED Code(s): 63430949 Code(s): I50.9 - HEART FAILURE, UNSPECIFIED Status: Acute Priority: High Current Visit: Yes Qualifiers: Heart failure type: unspecified Heart failure chronicity: unspecified Qualified Code(s): I50.9 - Heart failure, unspecified (6) Essential tremor SNOMED Code(s): 156159023 Code(s): G25.0 - ESSENTIAL TREMOR Status: Chronic Priority: Medium Current Visit: Yes - Problem List Review Problem List Initiated/Reviewed/Updated: Yes - My Orders Last 24 Hours: My Active Orders 08/18/20 10:49 Lidocaine 4% [Aspercreme 4%] 1 each TOP DAILY PRN - Assessment Assessment:: Assessment: Acute: Covid-19 Infection Viral Pneumonitis/Atypical Pneumonia Elevated d-dimer -Completed 2 units of convalescent plasma -Completed 5 day course of Veklury -Completed 5 days of Rocephin and 3 days of Azithromycin -10 day course of Dexamethasone competed -Continue IS and FV as directed -She is requiring oxygen today @ 1 liter per nasal cannula -Chest xray today shows persisting atelectasis with the left base with linear scar within the left upper lung. Nothing acute is otherwise definitely appreciated. New onset A. fib with RVRresolved -Rate is well controlled on metoprolol tartrate 75 mg po BID -Anticoagulate secondary to A. fib with Eliquis -HR is well controlled: 60s-70s HTN -Vital signs every 4 hours -BP Meds: Metoprolol tartrate 75 mg po BID, Aldactone 25 mg po daily, Losartan 50 mg po BID, Norvasc 10 mg po daily, and PRN Lasix 20 mg po daily -Blood pressure is adequately controlled Hypo-osmolar hyponatremia, stable -She is not symptomatic -Na now at 133 -On Lasix 20 mg daily as needed -Continue fluid restriction to 1500 ml daily -Continue to monitor intake and output every 8 hours Congestive heart failure (CHF) with Preserved EF -Has likely pulmonary HTN -2D echo shows normal EF 60-65%. No RWMA. Moderate calcification and thickening of mitral leaflets. Moderate-Severe RVSP at 62.7 mmHg -Continue Lasix and Aldactone -1.5 L for fluid restriction and AHA diet Leukocytosis, POA, -Likely from underlying infection but also on steroids -Will monitor -Decreased today 13.20 --> 24.15-->34.33-->30.33-->13.28 -UA collected today was unremarkable for infection Mild Hypochloremia with Cl, 96, POA, resolved Hyperglycemia, POA, resolved -Likely due to steroid and now off steroids -Carries no hx/o diabetes or glucose intolerance -We will monitor Elevated CRP level of 28.4, POA -Most recent level of 32.4 -Unsure why elevated again -Patient coughing and reporting feeling bad/weak Hypoalbuminemia, POA -Albumin of 2.8; now 1.8 -Tanyard Worker following -Nursing reporting minimal intake Macrocytic Normochromic Anemia with Hgb of 8.9, trending down -occult stool negative today Chronic: Impaired Vision and Hearing HTN HLD Hx/o [place] CAD S/p stents placement Asthma HIWOT Chronic Constipation Recurrent UTI OA Hx/o esophageal cancer Hx/o Splenectomy Anxiety ET - Plan Plan:: 08/04/20 * 85-year-old female with gradual onset weakness, cough, decreased appetite, fever chills and diaphoresis that started about a week ago. Has been exposed to COVID-19 about 2 weeks ago at a . * Presented to the emergency department and was hypoxemic at 86% on room air. * Initial vital signs in the emergency department reveal a temp of 37.3 Celsius, pulse 84, respiratory rate 20, pressure 170/68, pulse ox 91% on 2 L of oxygen per nasal cannula * Labs in the ED revealed WBC 14.19, sodium 126, potassium 4.1, BUN 8, creatinine 0.6, GFR greater than 60, lactic acid 1.4, LDH 221, troponin I 0.019, C-reactive protein 18.7, D-dimer 1.03, ferritin 142, proBNP 2163, she is Covid positive, urinalysis is unremarkable for infection. Sets of blood cultures were also collected in the emergency department. * Portable chest x-ray reveals a mild increase in interstitial lung markings bilaterally. There is a nodule airspace opacity within the right midlung zone. Findings suggest a pneumonic infiltrate. Consider atypical viral etiology. Pleural spaces otherwise unremarkable with no pleural effusion or pneumothorax. Heart size is mildly prominent. 08/05/2020 * New onset atrial fibrillation with RVR overnight. Stabilized with IV metoprolol and oral metoprolol. * Patient did have some chest pain with the chest pain and her troponin increased slightly to 0.06 * Patient's chest pain when I examined was mostly in her abdomen. This did resolve with resolution of her A. fib RVR. * Patient continues to have hyponatremia 129, white count is elevated at 15.1 likely secondary to inflammation, hypokalemia with potassium of 3.2 and worsening of her proBNP at 3894. * Procalcitonin is less than 0.05. This makes it unlikely that her white count is secondary to significant bacterial infection. PLAN: Pneumonia due to 2019 novel coronavirus, Acute hypoxemic respiratory failure * Convalescent plasma 2 units today. I spoke with the patient to provide information about convalescent plasma for herself. I offered her the fax shee t for patients and caregivers for COVID-19 convalescent plasma to read and review. I stated the therapy has been approved by an emergency youth authorization process and has not fully been FDA reviewed or approved. I shared potential risks from the therapy including transmission of blood-borne pathogen such as HIV and hepatitis C, allergic and transfusion related reactions, post transfusion purpura. Additionally theoretical risks including a phenomenon called antibodydependent enhancement of infection such as seen in dengue or attenuation of an immune response that may make patients more s usceptible to reinfection. I discussed there are other potential treatment options that are currently not FDA approved to treat COVID-19. Offered opportunity to ask questions and all questions were answered. The patient voiced understanding and agreed to proceed with treatment for herself. * Remdesivir 200 mg IV x1 dose then 100 mg daily x4 more doses. * Dexamethasone 6 mg p.o. daily x10 days * Rocephin 2 g daily x5 days * Zithromax 500 mg IV daily x3 days * Incentive spirometer and flutter valve every hour while awake 08/06/20 New onset A. fib with RVR * Rate is still not controlled on current dose of metoprolol. Increase metoprolol to 75 mg by mouth twice daily. * Anticoagulate secondary to A. fib with Eliquis HTN (hypertension) * Vital signs every 4 hours * Readjust antihypertensives based on blood pressure and adjustment of metoprolol Hyponatremia * Restart Lasix in the morning 20 mg daily as needed * 1500 mL fluid restriction every 24 hours * Monitor intake and output every 8 hours Congestive heart failure (CHF) * Furosemide 40mg IV x 1 dose today. * Follow-up chest x-rays as needed * Echocardiogram pending Eliquis for stroke and DVT prophylaxis Patient is a DNR/DNI PT OT to eval and treat Dietitian consult regarding patient's caloric needs human services manager and case management for discharge planning Respiratory therapy to titrate oxygen to keep O2 saturations between 88 and 94% Change patient to MedSurg status with telemetry and continuous pulse oximetry. Discontinue Adkins catheter, but maintain strict VIJAYA and daily weight Patient will be here greater than 96 hours due to the standard 5-day treatment course for Covid 08/07/20 New onset A. fib with RVR * Rate is well controlled on metoprolol * Anticoagulate secondary to A. fib with Eliquis HTN (hypertension) * Vital signs every 4 hours * Readjust antihypertensives based on blood pressure and adjustment of metoprolol * Start chlorthalidone 12.5 mg daily Hyponatremia * Restart Lasix in the morning 20 mg daily as needed * 1500 mL fluid restriction every 24 hours * Monitor intake and output every 8 hours * Sodium 129 today. Upon further investigation and patient's previous hospital visits, this is a chronic issue. Will have patient's primary physician follow-up regarding this as patient is asymptomatic. Congestive heart failure (CHF) * Follow-up chest x-rays as needed * Lasix 20 mg daily as needed 08/08/2020 New onset A. fib with RVRstable * Rate is well controlled on metoprolol * Anticoagulate secondary to A. fib with Eliquis HTN (hypertension) * Vital signs every 4 hours * Readjust antihypertensives based on blood pressure and adjustment of metoprolol * Chlorthalidone was held secondary to hyponatremia * Norvasc restarted at a lower dose of 5 mg daily Hyponatremia * Lasix in the morning 20 mg daily as needed * 1500 mL fluid restriction every 24 hours * Monitor intake and output every 8 hours * Sodium 131 today. Upon further investigation and patient's previous hospital visits, this is a chronic issue. Will have patient's primary physician follow-up regarding this as patient is asymptomatic. Congestive heart failure (CHF) * Follow-up chest x-rays as needed * Lasix 20 mg daily as needed 08/09/2020 New onset A. fib with RVRstable * Rate is well controlled on metoprolol * Anticoagulate secondary to A. fib with Eliquis HTN (hypertension) * Vital signs every 4 hours * Readjust antihypertensives based on blood pressure and adjustment of metoprolol * Chlorthalidone was held secondary to hyponatremia * Norvasc restarted at a lower dose of 5 mg at bedtime Hyponatremia * Lasix in the morning 20 mg daily as needed * 1500 mL fluid restriction every 24 hours * Monitor intake and output every 8 hours * Sodium 133improvedtoday. Upon further investigation and patient's previous hospital visits, this is a chronic issue. Will have patient's primary physician follow-up regarding this as patient is asymptomatic. Congestive heart failure (CHF) * Follow-up chest x-rays as needed * Lasix 20 mg daily as needed 08/10/2020 New onset A. fib with RVRstable * Rate is well controlled on metoprolol * Anticoagulate secondary to A. fib with Eliquis HTN (hypertension) * Vital signs every 4 hours * Readjust antihypertensives based on blood pressure and adjustment of metoprolo l * Chlorthalidone was held secondary to hyponatremia * Norvasc restarted at a lower dose of 5 mg at bedtime * Blood pressure is adequately treated Hyponatremia * Lasix 20 mg daily as needed * Increase fluid restriction to 2000 mL * Monitor intake and output every 8 hours * Recheck labs in the morning. Congestive heart failure (CHF) * Follow-up chest x-rays as needed * Lasix 20 mg daily as needed * Continue metoprolol Eliquis for stroke and DVT prophylaxis Patient is a DNR/DNI PT OT to eval and treat human services manager and case management for discharge planning patient has agreed to go to [facility] upon discharge. Respiratory therapy to titrate oxygen to keep O2 saturations between 88 and 94% Patient will be here greater than 96 hours due to the standard 5-day treatment course for Covid 08/11/2020 New onset A. fib with RVRstable * Rate is well controlled on metoprolol * Anticoagulate secondary to A. fib with Eliquis HTN (hypertension) * Vital signs every 4 hours * Readjust antihypertensives based on blood pressure and adjustment of metoprolol * Norvasc raised to 10 mg daily. This is her home dose. * Blood pressure is adequately treated Hyponatremia * Lasix 20 mg daily as needed * Increase fluid restriction to 2000 mL * Monitor intake and output every 8 hours Congestive heart failure (CHF) * Follow-up chest x-rays as needed * Lasix 20 mg daily as needed * Continue metoprolol Eliquis for stroke and DVT prophylaxis Patient is a DNR/DNI PT OT to eval and treat human services manager and case management for discharge planning patient has agreed to go to [facility] upon discharge. Awaiting acceptance to residential. Respiratory therapy to titrate oxygen to keep O2 saturations between 88 and 94% Patient will be here greater than 96 hours due to the standard 5-day treatment course for Covid 08/12/2020 Continue steroid therapy Routine AM Labs Encourage to ambulate inside her room as much as she can IS and FV as directed Fluid restriction to 1500 ml daily Chest x-ray in AM [employer] Work[employer] following PT/OT to assess and treat She is being evaluated by [facility] [place] LOS> 96hrs and pending placement due to new rules/protocol for covid-patient residential placement 08/13/2020 Continue steroid therapy Routine AM Labs Encourage to ambulate inside her room as much as she can IS and FV as directed Continue Fluid restriction to 1500 ml daily [employer] Work[employer] following PT/OT to assess and treat Discharge to [facility] this Tuesday per 08/14/2020 Completed 10 day course of Dexamethasone Routine AM Labs Encourage to ambulate inside her room as much as she can IS and FV as directed Continue Fluid restriction to 1500 ml daily [employer] Work[employer] following PT/OT to assess and treat Discharge to [facility] tuesday @ 1300 per 08/15/2020 Completed COVID-19 treatment Reports she "feels horrible today" - SOB, general myalgias, cough Reports coughing fit last night Continue IS/Acapella Continue fluid restriction Continue PT/OT CXR ordered WBC increased to 24.15 Recheck labs in AM Procalcitonin ordered Monitor need for oxygen Will hold off discharge today to investigate increasing leukocytosis (steroid vs secondary infection) Plan for discharge Tuesday08/18/20 08/16/2020 Patient reports she feels better today and that "it may have been the weather" WBC again elevated at 34.33 CRP elevated at 30.4 D-dimer 2.64 CTA obtained and shows atelectasis vs PNA in left lung base Procalcitonin obtained from 08/15/20 and was negative Discussed with Dr. Tucker - will start zosyn with concerns of secondary infection Patient had completed 5 day course of rocephin on 08/08/2020 and 3 day course of azithromycin Will monitor daily labs Requiring 1L oxygen today Continue IS/Acapella RT continuing to work with patient Continue fluid restriction 08/17/2020 Patient reports being very weak today - discussed lack of motivation and deconditioning WBC improved to 30.33 CRP stable at 30.6 D-dimer down to 0.[address] Tucker - will stop zosyn and start PO augmentin Requiring 1L oxygen today Encourage improved PO intake Continue IS/acapella Planning on discharge tomorrow - 08/18/2020 to SNF 08/18/2020 Patient reports feeling weak. Unable to feed herself breakfast. Nursing staff reports that patient layed in bed all weekend. She is requesting to work with PT to get her strength back. WBC improved to 13.28 CRP up to 32.4 Procalcitonin ordered. Will continue the patient on Zosyn until results are back. Requiring 1L oxygen today Encourage improved PO intake Continue IS/acapella Planning on discharge tomorrow - 08/19/2020 to SNF Will not recheck labs tomorrow as this is likely contributing to the patient's anemia.
[2020-08-18] MEDS: Codeine/guaiFENesin 10-100 MG/5 ML Syrup 5 ML Cup PO PRN (16:48)
[2020-08-18] MEDS: Acetaminophen 325 MG Tab PO PRN (16:48)
[2020-08-18] MEDS ORDERED: DICLOFENAC SODIUM 1% TOP PRN (19:02)
[2020-08-18] MEDS: amLODIPine 10 MG Tab PO SCH (20:23)
[2020-08-18] MEDS: Gabapentin 300 MG Cap PO SCH (20:24)
[2020-08-18] MEDS: Codeine/Promethazine 10-6.25 MG/5 ML Syrup 5 ML UD Cup PO PRN (20:25)
[2020-08-18] MEDS: Albuterol 6.7 GM Inhaler INH PRN (20:55)
[2020-08-18] MEDS: LOVASTATIN 80 MG PO SCH (23:23)
[2020-08-19] MEDS: Piperacillin/Tazobactam 4.5 GM in Sodium Chloride 0.9% 100 ML IV SCH ×3 (03:31→18:00)
[2020-08-19] MEDS: Acetaminophen 325 MG Tab PO PRN (05:39)
[2020-08-19] MEDS ORDERED: Trolamine Salicylate/Aloe Vera 10% Crm 85 GM Tube TOP PRN (05:45)
[2020-08-19] MEDS: Albuterol 6.7 GM Inhaler INH PRN ×2 (08:07→19:57)
[2020-08-19] MEDS: Fluticasone Propionate Nasal Spray 16 GM Bottle NAS SCH ×2 (08:44→20:51)
[2020-08-19] MEDS: Trolamine Salicylate/Aloe Vera 10% Crm 85 GM Tube TOP PRN ×2 (08:45→17:59)
[2020-08-19] MEDS: Losartan 25 MG Tab PO SCH ×2 (08:47→20:56)
[2020-08-19] MEDS: Metoprolol Tartrate 25 MG Tab PO SCH ×2 (08:47→20:55)
[2020-08-19] MEDS: Primidone 50 MG Tab PO SCH ×2 (08:47→20:52)
[2020-08-19] MEDS: Spironolactone 25 MG Tab PO SCH (08:48)
[2020-08-19] MEDS: Apixaban 5 MG Tab PO SCH ×2 (08:48→20:51)
[2020-08-19] MEDS: Aspirin 81 MG Tab.EC PO SCH (08:48)
[2020-08-19] MEDS: Zinc Sulfate 220 MG Cap PO SCH (08:48)
[2020-08-19] MEDS: guaiFENesin 600 MG Tab.ER PO SCH ×3 (08:48→20:51)
[2020-08-19] MEDS: Ezetimibe 10 MG Tab PO SCH (08:48)
[2020-08-19] MEDS: Cholecalciferol (Vitamin D3) 25 MCG Tab PO SCH (08:49)
[2020-08-19] MEDS ORDERED: Lidocaine 4% 1 each Patch TOP PRN (09:00)
--- NOTE | 2020-08-19 12:29 | PCM.PN ---
- General Info Date of Service: 08/19/20 Admission Dx/Problem (Free Text): Admission Diagnosis/Problem Admission Diagnosis/Problem Weakness Subjective Update: In to see Delores. Clinically she looks good today. Her labs have improved. WBC is back WNL. CRP is 20. Potassium is 5.3 but this is likely to oversupplementation. Sodium remains stable. Discussed plan of care with Dr. Calvillo. Given risk of healthcare acquired PNA we will continued 7 days worth of IV abx. Differential includes healthcare acquired PNA vs. Aspiration PNA vs. Atelectasis. Continue current treatment plan. Occult blood was negative. Will not re-check labs tomorrow as she remains stable. Functional Status: Reports: Pain Controlled, Tolerating Diet, Ambulating, Urinating, Incentive Spirometry, Other (acapella ). Denies: New Symptoms - Review of Systems General: Reports: Weakness. Denies: Fever, Fatigue, Malaise, Chills HEENT: Reports: No Symptoms. Denies: Headaches, Sore Throat Pulmonary: Reports: Cough. Denies: Shortness of Breath, Sputum, Wheezing Cardiovascular: Reports: Dyspnea on Exertion. Denies: Chest Pain, Palpitations Gastrointestinal: Reports: No Symptoms. Denies: Abdominal Pain, Constipation, Diarrhea, Nausea, Vomiting Genitourinary: Denies: Pain Musculoskeletal: Reports: No Symptoms Skin: Reports: No Symptoms Neurological: Reports: Difficulty Walking. Denies: Confusion, Numbness, Tingling, Weakness Psychiatric: Reports: No Symptoms - Patient Data Vitals - Most Recent: Last Vital Signs Temp 98.2 F 08/19/20 03:24 Pulse 82 08/19/20 08:51 Resp 15 08/19/20 11:00 BP 122/63 08/19/20 08:51 Pulse Ox 95 08/19/20 08:51 Weight - Most Recent: 131 lb 3.2 oz I&O - Last 24 Hours: Intake & Output 08/18/20 08/19/20 08/19/20 22:59 06:59 14:59 Intake Total 540 200 180 Output Total 850 1100 Balance -310 -900 180 Lab Results Last 24 Hours: Laboratory Results - last 24 hr 08/18/20 08/19/20 08/19/20 Range/Units 05:51 04:32 04:32 WBC 7.51 (3.98-10.04) K/mm3 RBC 3.03 L (3.98-5.22) M/mm3 Hgb 9.1 L (11.2-15.7) gm/dl Hct 28.7 L (34.1-44.9) % MCV 94.7 (79.4-94.8) fl MCH 30.0 (25.6-32.2) pg MCHC 31.7 L (32.2-35.5) g/dl RDW Std Deviation 51.1 H (36.4-46.3) fL Plt Count 303 (182-369) K/mm3 MPV 10.8 (9.4-12.3) fl Neut % (Auto) 42.9 (34.0-71.1) % Lymph % (Auto) 24.8 (19.3-51.7) % Addison % (Auto) 29.3 H (4.7-12.5) % Eos % (Auto) 2.3 (0.7-5.8) Baso % (Auto) 0.3 (0.1-1.2) % Neut # (Auto) 3.23 (1.56-6.13) K/mm3 Lymph # (Auto) 1.86 (1.18-3.74) K/mm3 [place]ison # (Auto) 2.20 H (0.24-0.36) K/mm3 Eos # (Auto) 0.17 (0.04-0.36) K/mm3 Baso # (Auto) 0.02 (0.01-0.08) K/mm3 Manual Slide Review Abnormal smear Sodium 133 L (136-145) mEq/L Potassium 5.3 H (3.5-5.1) mEq/L Chloride 101 (98-107) mEq/L Carbon Dioxide 25 (21-32) mEq/L Anion Gap 12.3 (5-15) BUN 17 (7-18) mg/dL Creatinine 0.6 (0.55-1.02) mg/dL Est Cr Clr Drug Dosing 48.34 mL/min Estimated GFR (MDRD) > 60 (>60) mL/min BUN/Creatinine Ratio 28.3 H (14-18) Glucose 96 (83-115) mg/dL Calcium 8.0 L (8.5-10.1) mg/dL Magnesium 2.8 H (1.8-2.4) mg/dl Total Bilirubin 0.2 (0.2-1.0) mg/dL AST 33 (15-37) U/L ALT 38 (14-59) U/L Alkaline Phosphatase 65 (46-116) U/L C-Reactive Protein 20.0 H* (<1.0) mg/dL Total Protein 6.5 (6.4-8.2) g/dl Albumin 1.9 L (3.4-5.0) g/dl Globulin 4.6 gm/dL Albumin/Globulin Ratio 0.4 L (1-2) Procalcitonin 0.67 H ng/mL [place] Results Last 24 Hours: Microbiology 08/18/20 11:00 Occult Blood - Preliminary Stool / Feces Med Orders - Current: Current Medications Acetaminophen (Tylenol) 650 mg PO Q4H PRN PRN Reason: Pain (Mild 1-3)/fever Last Admin: 08/19/20 05:39 Dose: 650 mg Documented by: Albuterol (Proventil Neb Soln) 2.5 mg NEB Q2H PRN PRN Reason: Shortness Of Breath/wheezing Albuterol (Proventil Hfa) 2 gm INH Q4H PRN PRN Reason: SOB/Cough Last Admin: 08/19/20 08:07 Dose: 2 puff Documented by: Alprazolam (Xanax) 0.25 mg PO Q12H PRN PRN Reason: Anxiety Last Admin: 08/17/20 12:58 Dose: 0.25 mg Documented by: Amlodipine Besylate (Norvasc) 10 mg PO BEDTIME [facility] Last Admin: 08/18/20 20:23 Dose: 10 mg Documented by: Apixaban (Eliquis) 5 mg PO BID [facility] Last Admin: 08/19/20 08:48 Dose: 5 mg Documented by: Aspirin (Halfprin) 81 mg PO DAILY [facility] Last Admin: 08/19/20 08:48 Dose: 81 mg Documented by: Benzocaine/Menthol (Cepacol Sore Throat) 1 lozenge MUCMEM ASDIRECTED PRN PRN Reason: Cough Last Admin: 08/15/20 04:52 Dose: 1 lozenge Documented by: Benzonatate (Tessalon Perles) 200 mg PO QID PRN PRN Reason: Cough Last Admin: 08/16/20 20:43 Dose: 200 mg Documented by: Calcium Carbonate/Glycine (Tums) 1,000 mg PO Q2H PRN PRN Reason: Indigestion Last Admin: 08/12/20 10:47 Dose: 1,000 mg Documented by: Cholecalciferol (Vitamin D3) 25 mcg PO DAILY [facility] Last Admin: 08/19/20 08:49 Dose: 25 mcg Documented by: Diclofenac Sodium (Voltaren 1% Gel) 1 gm TOP QID PRN PRN Reason: Pain Docusate Sodium (Colace) 100 mg PO BID PRN PRN Reason: Constipation Last Admin: 08/17/20 20:26 Dose: 100 mg Documented by: Ezetimibe (Zetia) 10 mg PO DAILY [facility] Last Admin: 08/19/20 08:48 Dose: 10 mg Documented by: Fluticasone Propionate (Flonase) 0 gm LINDA BID [facility] Last Admin: 08/19/20 08:44 Dose: 1 spray Documented by: Furosemide (Lasix) 20 mg PO DAILY PRN PRN Reason: Edema Gabapentin (Neurontin) 300 mg PO BEDTIME [facility] Last Admin: 08/18/20 20:24 Dose: 300 mg Documented by: Guaifenesin (Mucinex) 600 mg PO TID [facility] Last Admin: 08/19/20 08:48 Dose: 600 mg Documented by: Guaifenesin/Codeine Phosphate (Robitussin Ac) 5 ml PO Q4H PRN PRN Reason: Cough Last Admin: 08/18/20 16:48 Dose: 5 ml Documented by: Piperacillin Sod/Tazobactam (Sod 4.5 gm/ Sodium Chloride) 100 mls @ 25 mls/hr IV Q8H [facility] Last Admin: 08/19/20 11:04 Dose: 25 mls/hr Documented by: Lidocaine (Aspercreme 4%) 1 each TOP DAILY PRN PRN Reason: Pain Losartan Potassium (Cozaar) 50 mg PO BID [facility] Last Admin: 08/19/20 08:47 Dose: 50 mg Documented by: Magnesium Hydroxide (Milk Of Magnesia) 30 ml PO Q4H PRN PRN Reason: Constipation Last Admin: 08/17/20 20:27 Dose: 30 ml Documented by: Meclizine HCl (Antivert) 25 mg PO Q6H PRN PRN Reason: Dizziness Last Admin: 08/14/20 12:26 Dose: 25 mg Documented by: Metoprolol Tartrate (Lopressor) 75 mg PO BID [facility] Last Admin: 08/19/20 08:47 Dose: 75 mg Documented by: Miscellaneous Information (Remove Patch) 1 ea TRDERM BEDTIME [facility] Last Admin: 08/18/20 20:11 Dose: 1 ea Documented by: Nitroglycerin (Nitrostat) 0.4 mg SL ASDIRECTED PRN PRN Reason: Chest Pain Lovastatin 80 Mg (Ptom) 80 mg PO BEDTIME [facility] Last Admin: 08/18/20 23:23 Dose: Not Given Documented by: Ondansetron HCl (Zofran) 4 mg IV Q4H PRN PRN Reason: Nausea/Vomiting Primidone (Mysoline) 300 mg PO BID [facility] Last Admin: 08/19/20 08:47 Dose: 300 mg Documented by: Promethazine HCl/Codeine (Phenergan With Codeine) 5 ml PO Q4HR PRN PRN Reason: Cough Last Admin: 08/18/20 20:25 Dose: 5 ml Documented by: Sodium Chloride (Saline Flush) 10 ml FLUSH ASDIRECTED PRN PRN Reason: Keep Vein Open Last Admin: 08/16/20 12:25 Dose: 10 ml Documented by: Spironolactone (Aldactone) 25 mg PO DAILY [facility] Last Admin: 08/19/20 08:48 Dose: 25 mg Documented by: Trolamine Salicylate (Aspercreme 10%) 0 gm TOP Q6H PRN PRN Reason: Pain Last Admin: 08/19/20 08:45 Dose: 1 applic Documented by: Zinc Sulfate (Zincate) 220 mg PO DAILY [facility] Last Admin: 08/19/20 08:48 Dose: 220 mg Documented by: Discontinued Medications Acetaminophen (Tylenol) 975 mg PO ONETIME ONE Stop: 08/04/20 10:01 Last Admin: 08/04/20 10:52 Dose: 975 mg Documented by: Al Hydroxide/Mg Hydroxide (Mag-Al Plus) 30 ml PO Q4H PRN PRN Reason: Heartburn Stop: 08/07/20 04:13 Last Admin: 08/05/20 04:23 Dose: 30 ml Documented by: Amlodipine Besylate (Norvasc) 5 mg PO BEDTIME [facility] Last Admin: 08/08/20 21:01 Dose: 5 mg Documented by: Amlodipine Besylate (Norvasc) 5 mg PO ONETIME ONE Stop: 08/09/20 17:13 Last Admin: 08/10/20 08:45 Dose: Not Given Documented by: Amlodipine Besylate (Norvasc) 10 mg PO BEDTIME [facility] Amlodipine Besylate (Norvasc) 5 mg PO BEDTIME [facility] Last Admin: 08/10/20 20:18 Dose: 5 mg Documented by: Amlodipine Besylate (Norvasc) 10 mg PO DAILY [facility] Amoxicillin/Clavulanate Potassium (Augmentin 500 Mg\\125 Mg) 1 tab PO Q12HR [facility] Last Admin: 08/17/20 21:22 Dose: 1 tab Documented by: Chlorthalidone (Chlorthalidone) 12.5 mg PO DAILY [facility] Last Admin: 08/07/20 16:41 Dose: Not Given Documented by: Dexamethasone (Dexamethasone) 6 mg PO Q24H [facility] Stop: 08/13/20 16:01 Last Admin: 08/13/20 16:02 Dose: 6 mg Documented by: Diltiazem HCl (Cardizem) 10 mg IVPUSH ONETIME ONE Stop: 08/05/20 03:24 Last Admin: 08/05/20 03:34 Dose: 10 mg Documented by: Diltiazem HCl (Cardizem) 10 mg IVPUSH ONETIME ONE Stop: 08/05/20 04:05 Last Admin: 08/05/20 04:11 Dose: 10 mg Documented by: Enoxaparin Sodium (Lovenox) 30 mg SUBCUT Q12H [facility] Last Admin: 08/04/20 16:56 Dose: 30 mg Documented by: Enoxaparin Sodium (Lovenox) 30 mg SUBCUT Q12H [facility] Last Admin: 08/05/20 17:33 Dose: 30 mg Documented by: Famotidine (Pepcid) 20 mg IVPUSH ONETIME ONE Stop: 08/05/20 09:01 Last Admin: 08/05/20 09:43 Dose: Not Given Documented by: Furosemide (Lasix) 40 mg IVPUSH NOW [facility] Stop: 08/04/20 17:00 Furosemide (Lasix) 20 mg IVPUSH ONETIME ONE Stop: 08/04/20 22:01 Last Admin: 08/04/20 22:43 Dose: 20 mg Documented by: Furosemide (Lasix) 40 mg IVPUSH NOW ONE Stop: 08/06/20 14:16 Last Admin: 08/06/20 14:29 Dose: 40 mg Documented by: Dextrose/Sodium Chloride (Dextrose 5%-Normal Saline) 1,000 mls @ 150 mls/hr IV ASDIRECTED [facility] Last Admin: 08/04/20 10:51 Dose: 150 mls/hr Documented by: Remdesivir 200 mg/ Sodium (Chloride) 250 mls @ 250 mls/hr IV ONETIME ONE Stop: 08/04/20 14:33 Last Admin: 08/04/20 16:54 Dose: 250 mls/hr Documented by: Remdesivir 100 mg/ Sodium (Chloride) 100 mls @ 100 mls/hr IV Q24H [facility] Stop: 08/08/20 16:59 Last Admin: 08/08/20 15:31 Dose: 100 mls/hr Documented by: Azithromycin 500 mg/ Sodium (Chloride) 250 mls @ 250 mls/hr IV Q24H [facility] Stop: 08/06/20 17:59 Last Admin: 08/06/20 16:58 Dose: 250 mls/hr Documented by: Ceftriaxone Sodium 2 gm/ (Sodium Chloride) 100 mls @ 200 mls/hr IV Q24H [facility] Stop: 08/08/20 18:29 Last Admin: 08/08/20 17:36 Dose: 200 mls/hr Documented by: Sodium Chloride (Normal Saline) Confirm Administered Dose 250 mls @ as directed .ROUTE .STK-MED ONE Stop: 08/04/20 20:59 Last Admin: 08/04/20 21:14 Dose: 50 mls/hr Documented by: Diltiazem HCl 100 mg/ Sodium (Chloride) 100 mls @ 5 mls/hr IV TITRATE [facility]; Protocol Last Titration: 08/05/20 08:00 Dose: 0 mg/hr, 0 mls/hr Documented by: Potassium Chloride 10 meq/ (Premix) 100 mls @ 100 mls/hr IV Q1H [facility] Stop: 08/05/20 12:59 Last Admin: 08/05/20 12:51 Dose: 100 mls/hr Documented by: Piperacillin Sod/Tazobactam (Sod 4.5 gm/ Sodium Chloride) 100 mls @ 200 mls/hr IV ONETIME ONE Stop: 08/16/20 10:15 Last Admin: 08/16/20 11:05 Dose: 200 mls/hr Documented by: Sodium Chloride (Normal Saline) 500 mls @ 999 mls/hr IV .BOLUS ONE Stop: 08/16/20 10:47 Last Admin: 08/16/20 11:04 Dose: 999 mls/hr Documented by: Sodium Chloride (Normal Saline) 100 mls @ 75 mls/hr IV ASDIRECTED [facility] Iopamidol (Isovue-370 (76%)) 100 ml IVPUSH ONETIME ONE Stop: 08/16/20 12:03 Last Admin: 08/16/20 12:25 Dose: 100 ml Documented by: Lidocaine (Aspercreme 4%) 1 each TOP DAILY [facility] Last Admin: 08/18/20 10:54 Dose: 1 each Documented by: Magnesium Hydroxide (Milk Of Magnesia) 30 ml PO ONETIME ONE Stop: 08/13/20 09:48 Last Admin: 08/13/20 09:56 Dose: 30 ml Documented by: Magnesium Hydroxide (Milk Of Magnesia) 30 ml PO ONETIME ONE Stop: 08/18/20 08:57 Last Admin: 08/18/20 09:23 Dose: 30 ml Documented by: Metoprolol Tartrate (Lopressor) 2.5 mg IVPUSH ONETIME ONE Stop: 08/05/20 07:47 Last Admin: 08/05/20 07:56 Dose: 2.5 mg Documented by: Metoprolol Tartrate (Lopressor) 50 mg PO BIDMEALS [facility] Last Admin: 08/06/20 08:24 Dose: 50 mg Documented by: Metoprolol Tartrate (Lopressor) 2.5 mg IVPUSH ONETIME ONE Stop: 08/05/20 08:13 Last Admin: 08/05/20 17:45 Dose: 2.5 mg Documented by: Metoprolol Tartrate (Lopressor) 75 mg PO BIDMEALS [facility] Last Admin: 08/11/20 17:36 Dose: 75 mg Documented by: Metoprolol Tartrate (Lopressor) 25 mg PO ONETIME ONE Stop: 08/06/20 09:31 Last Admin: 08/06/20 09:31 Dose: 25 mg Documented by: Non-Formulary Medication (Docusate Sodium [Colace]) 150 mg PO DAILY [facility] Potassium Chloride (Klor-Con M20) 40 meq PO ONETIME ONE Stop: 08/06/20 11:01 Last Admin: 08/06/20 11:58 Dose: 40 meq Documented by: Potassium Chloride (Klor-Con M20) 40 meq PO BID [facility] Stop: 08/18/20 09:01 Last Admin: 08/17/20 20:26 Dose: 40 meq Documented by: Trolamine Salicylate (Aspercreme 10%) 0 gm TOP Q1H PRN PRN Reason: Pain - Exam Quality Assessment: Supplemental Oxygen (1L), DVT Prophylaxis General: Alert, Oriented, Cooperative, No Acute Distress HEENT: Pupils Equal, Pupils Reactive, Mucous Membr. Moist/[place] Neck: Supple, Trachea Midline Lungs: Normal Respiratory Effort, Decreased Breath Sounds. No: Crackles, Rales, Rhonchi, Wheezing Cardiovascular: Regular Rate, Regular Rhythm, Murmurs GI/Abdominal Exam: Normal Bowel Sounds, Soft, Non-Tender, No Distention (Female) Exam: Deferred Back Exam: Normal Inspection, Decreased Range of Motion Extremities: Normal Inspection, Normal Range of Motion, Non-Tender, No Pedal Edema, Normal Capillary Refill Peripheral Pulses: 2+: Radial (L), Radial (R), Dorsalis Pedis (L), Dorsalis Pedis (R) Skin: Warm, Dry, Intact Neurological: No New Focal Deficit Psy/Mental Status: Alert Sepsis Event Note - Evaluation Sepsis Screening Result: No Definite Risk - Focused Exam Vital Signs: Vital Signs Temp Pulse Resp BP Pulse Ox Pulse Ox 08/19/20 11:00 15 08/19/20 10:00 20 08/19/20 09:00 18 08/19/20 08:51 82 13 122/63 95 08/19/20 08:47 84 122/63 08/19/20 08:42 44 H 08/19/20 08:08 95 08/19/20 03:24 98.2 F 70 20 128/84 93 L 08/19/20 00:44 98.8 F 71 16 113/74 96 08/19/20 00:37 23 H - Problem List & Annotations (1) Acute hypoxemic respiratory failure SNOMED Code(s): 807379853 Code(s): J96.01 - ACUTE RESPIRATORY FAILURE WITH HYPOXIA Status: Acute Priority: High Current Visit: Yes (2) Atrial fibrillation with rapid ventricular response SNOMED Code(s): 929166275098391 Code(s): I48.91 - UNSPECIFIED ATRIAL FIBRILLATION Status: Resolved Priority: High Current Visit: Yes (3) COVID-19 determined by clinical diagnostic criteria SNOMED Code(s): 088896907, 423840118 Code(s): U07.1 - COVID-19 Status: Acute Priority: High Current Visit: Yes (4) Congestive heart failure (CHF) SNOMED Code(s): 18882577 Code(s): I50.9 - HEART FAILURE, UNSPECIFIED Status: Acute Priority: High Current Visit: Yes Qualifiers: Heart failure type: unspecified Heart failure chronicity: unspecified Qualified Code(s): I50.9 - Heart failure, unspecified (5) Hyponatremia SNOMED Code(s): 66658997 Code(s): E87.1 - HYPO-OSMOLALITY AND HYPONATREMIA Status: Acute Priority: High Current Visit: Yes (6) Hypoxia SNOMED Code(s): 742713393 Code(s): R09.02 - HYPOXEMIA Status: Acute Priority: High Current Visit: Yes (7) Leukocytosis, unspecified SNOMED Code(s): 256929589, 613832744 Code(s): D72.829 - ELEVATED WHITE BLOOD CELL COUNT, UNSPECIFIED Status: Acute Priority: High Current Visit: Yes Qualifiers: Leukocytosis type: monocytosis Qualified Code(s): D72.821 - Monocytosis (symptomatic) (8) New onset atrial fibrillation SNOMED Code(s): 64049638 Code(s): I48.91 - UNSPECIFIED ATRIAL FIBRILLATION Status: Acute Priority: High Current Visit: Yes (9) Pneumonia due to 2019 novel coronavirus SNOMED Code(s): 223141505713083603 Code(s): U07.1 - COVID-19; J12.89 - OTHER VIRAL PNEUMONIA Status: Acute P riority: High Current Visit: Yes (10) Essential tremor SNOMED Code(s): 126698422 Code(s): G25.0 - ESSENTIAL TREMOR Status: Chronic Priority: Medium Current Visit: Yes (11) CAD (coronary artery disease) SNOMED Code(s): 14864534 Code(s): I25.10 - ATHSCL HEART DISEASE OF [place] CORONARY ARTERY W/O ANG PCTRS Status: Chronic Priority: Low Current Visit: No Qualifiers: Coronary Disease-Associated Artery/Lesion type: unspecified vessel or lesion type [place] vs. transplanted heart: unspecified whether [place] or transplanted heart Associated angina: with unspecified angina Qualified Code(s): I25.119 - Atherosclerotic heart disease of [place] coronary artery with unspecified angina pectoris (12) GERD (gastroesophageal reflux disease) SNOMED Code(s): 305547281 Code(s): K21.9 - GASTRO-ESOPHAGEAL REFLUX DISEASE WITHOUT ESOPHAGITIS Status: Chronic Priority: Low Current Visit: No Qualifiers: Esophagitis presence: esophagitis presence not specified Qualified Code(s): K21.9 - Gastro-esophageal reflux disease without esophagitis (13) HTN (hypertension) SNOMED Code(s): 53345207 Code(s): I10 - ESSENTIAL (PRIMARY) HYPERTENSION Status: Chronic Priority: Low Current Visit: No Qualifiers: Hypertension type: essential hypertension Qualified Code(s): I10 - Essential (primary) hypertension (14) Osteoarthritis SNOMED Code(s): 737693387 Code(s): M19.90 - UNSPECIFIED OSTEOARTHRITIS, UNSPECIFIED SITE Status: Chronic Priority: Low Current Visit: No Qualifiers: Osteoarthritis location: unspecified site Osteoarthritis type: unspecified Qualified Code(s): M19.90 - Unspecified osteoarthritis, unspecified site (15) Elevated d-dimer SNOMED Code(s): 140608613 Code(s): R79.89 - OTHER SPECIFIED ABNORMAL FINDINGS OF BLOOD CHEMISTRY Status: Acute Priority: High Current Visit: Yes (16) Pneumonia SNOMED Code(s): 212854546 Code(s): J18.9 - PNEUMONIA, UNSPECIFIED ORGANISM Status: Acute Priority: High Current Visit: Yes Qualifiers: Pneumonia type: due to unspecified organism Laterality: left Lung location: lower lobe of lung Qualified Code(s): J18.9 - Pneumonia, unspecified organism - Problem List Review Problem List Initiated/Reviewed/Updated: Yes - Assessment Assessment:: Assessment: Acute: Covid-19 Infection Viral Pneumonitis/Atypical Pneumonia Elevated d-dimer Ascites vs. healthcare acquired PNA vs. aspiration PNA Leukocytosis, POA -Completed 2 units of convalescent plasma -Completed 5 day course of Veklury -Completed 5 days of Rocephin and 3 days of Azithromycin -10 day course of Dexamethasone competed -Continue IS and FV as directed -She is off of oxygen today -Chest xray today shows persisting atelectasis with the left base with linear scar within the left upper lung. Nothing acute is otherwise definitely appreciated. -WBC decreased today 13.20 --> 24.15-->34.33-->30.33-->13.28-->7.51 -UA collected was unremarkable for infection New onset A. fib with RVRresolved -Rate is well controlled on metoprolol tartrate 75 mg po BID -Anticoagulate secondary to A. fib with Eliquis -HR is well controlled: 60s-70s HTN -Vital signs every 4 hours -BP Meds: Metoprolol tartrate 75 mg po BID, Aldactone 25 mg po daily, Losartan 50 mg po BID, Norvasc 10 mg po daily, and PRN Lasix 20 mg po daily -Blood pressure is adequately controlled Hypo-osmolar hyponatremia, stable -She is not symptomatic -Na now at 133 -On Lasix 20 mg daily as needed -Continue fluid restriction to 1500 ml daily -Continue to monitor intake and output every 8 hours Congestive heart failure (CHF) with Preserved EF -Has likely pulmonary HTN -2D echo shows normal EF 60-65%. No RWMA. Moderate calcification and thickening of mitral leaflets. Moderate-Severe RVSP at 62.7 mmHg -Continue Lasix and Aldactone -1.5 L for fluid restriction and AHA diet Mild Hypochloremia with Cl, 96, POA, resolved Hyperglycemia, POA, resolved -Likely due to steroid and now off steroids -Carries no hx/o diabetes or glucose intolerance -We will monitor Hypoalbuminemia, POA -Albumin of 2.8; now 1.9 -Pot Operator following -Nursing reporting minimal intake Macrocytic Normochromic Anemia with Hgb of 9.1, Stable -occult stool negative Chronic: Impaired Vision and Hearing HTN HLD Hx/o ND CAD S/p stents placement Asthma HIWOT Chronic Constipation Recurrent UTI OA Hx/o esophageal cancer Hx/o Splenectomy Anxiety ET - Plan Plan:: 08/04/20 * 85-year-old female with gradual onset weakness, cough, decreased appetite, fever chills and diaphoresis that started about a week ago. Has been exposed to COVID-19 about 2 weeks ago at a . * Presented to the emergency department and was hypoxemic at 86% on room air. * Initial vital signs in the emergency department reveal a temp of 37.3 Celsius, pulse 84, respiratory rate 20, pressure 170/68, pulse ox 91% on 2 L of oxygen per nasal cannula * Labs in the ED revealed WBC 14.19, sodium 126, potassium 4.1, BUN 8, creatinine 0.6, GFR greater than 60, lactic acid 1.4, LDH 221, troponin I 0.019, C-reactive protein 18.7, D-dimer 1.03, ferritin 142, proBNP 2163, she is Covid positive, urinalysis is unremarkable for infection. Sets of blood cultures were also collected in the emergency department. * Portable chest x-ray reveals a mild increase in interstitial lung markings bilaterally. There is a nodule airspace opacity within the right midlung zone. Findings suggest a pneumonic infiltrate. Consider atypical viral etiology. Pleural spaces otherwise unremarkable with no pleural effusion or pneumothorax. Heart size is mildly prominent. 08/05/2020 * New onset atrial fibrillation with RVR overnight. Stabilized with IV metoprolol and oral metoprolol. * Patient did have some chest pain with the chest pain and her troponin increased slightly to 0.06 * Patient's chest pain when I examined was mostly in her abdomen. This did resolve with resolution of her A. fib RVR. * Patient continues to have hyponatremia 129, white count is elevated at 15.1 likely secondary to inflammation, hypokalemia with potassium of 3.2 and worsening of her proBNP at 3894. * Procalcitonin is less than 0.05. This makes it unlikely that her white count is secondary to significant bacterial infection. PLAN: Pneumonia due to 2019 novel coronavirus, Acute hypoxemic respiratory failure * Convalescent plasma 2 units today. I spoke with the patient to provide information about convalescent plasma for herself. I offered her the fax sheet for patients and caregivers for COVID-19 convalescent plasma to read and review. I stated the therapy has been approved by an emergency youth authorization process and has not fully been FDA reviewed or approved. I shared potential risks from the therapy including transmission of blood-borne pathogen such as HIV and hepatitis C, allergic and transfusion related reactions, post transfusion purpura. Additionally theoretical risks including a phenomenon called antibodydependent enhancement of infection such as seen in dengue or attenuation of an immune response that may make patients more susceptible to reinfection. I discussed there are other potential treatment options that are currently not FDA approved to treat COVID-19. Offered opportunity to ask questions and all questions were answered. The patient voiced understanding and agreed to proceed with treatment for herself. * Remdesivir 200 mg IV x1 dose then 100 mg daily x4 more doses. * Dexamethasone 6 mg p.o. daily x10 days * Rocephin 2 g daily x5 days * Zithromax 500 mg IV daily x3 days * Incentive spirometer and flutter valve every hour while awake 08/06/20 New onset A. fib with RVR * Rate is still not controlled on current dose of metoprolol. Increase metoprolol to 75 mg by mouth twice daily. * Anticoagulate secondary to A. fib with Eliquis HTN (hypertension) * Vital signs every 4 hours * Readjust antihypertensives based on blood pressure and adjustment of metoprolol Hyponatremia * Restart Lasix in the morning 20 mg daily as needed * 1500 mL fluid restriction every 24 hours * Monitor intake and output every 8 hours Congestive heart failure (CHF) * Furosemide 40mg IV x 1 dose today. * Follow-up chest x-rays as needed * Echocardiogram pending Eliis for stroke and DVT prophylaxis Patient is a DNR/DNI PT OT to eval and treat Dietitian consult regarding patient's caloric needs administrative services director and case management for discharge planning Respiratory therapy to titrate oxygen to keep O2 saturations between 88 and 94% Change patient to MedSurg status with telemetry and continuous pulse oximetry. Discontinue Adkins catheter, but maintain strict VIJAYA and daily weight Patient will be here greater than 96 hours due to the standard 5-day treatment course for Covid 08/07/20 New onset A. fib with RVR * Rate is well controlled on metoprolol * Anticoagulate secondary to A. fib with Eliquis HTN (hypertension) * Vital signs every 4 hours * Readjust antihypertensives based on blood pressure and adjustment of metoprolol * Start chlorthalidone 12.5 mg daily Hyponatremia * Restart Lasix in the morning 20 mg daily as needed * 1500 mL fluid restriction every 24 hours * Monitor intake and output every 8 hours * Sodium 129 today. Upon further investigation and patient's previous hospital visits, this is a chronic issue. Will have patient's primary physician follow-up regarding this as patient is asymptomatic. Congestive heart failure (CHF) * Follow-up chest x-rays as needed * Lasix 20 mg daily as needed 08/08/2020 New onset A. fib with RVRstable * Rate is well controlled on metoprolol * Anticoagulate secondary to A. fib with Eliquis HTN (hypertension) * Vital signs every 4 hours * Readjust antihypertensives based on blood pressure and adjustment of metoprolol * Chlorthalidone was held secondary to hyponatremia * Norvasc restarted at a lower dose of 5 mg daily Hyponatremia * Lasix in the morning 20 mg daily as needed * 1500 mL fluid restriction every 24 hours * Monitor intake and output every 8 hours * Sodium 131 today. Upon further investigation and patient's previous hospital visits, this is a chronic issue. Will have patient's primary physician follow-up regarding this as patient is asymptomatic. Congestive heart failure (CHF) * Follow-up chest x-rays as needed * Lasix 20 mg daily as needed 08/09/2020 New onset A. fib with RVRstable * Rate is well controlled on metoprolol * Anticoagulate secondary to A. fib with Eliquis HTN (hypertension) * Vital signs every 4 hours * Readjust antihypertensives based on blood pressure and adjustment of metoprolol * Chlorthalidone was held secondary to hyponatremia * Norvasc restarted at a lower dose of 5 mg at bedtime Hyponatremia * Lasix in the morning 20 mg daily as needed * 1500 mL fluid restriction every 24 hours * Monitor intake and output every 8 hours * Sodium 133improvedtoday. Upon further investigation and patient's previous hospital visits, this is a chronic issue. Will have patient's primary physician follow-up regarding this as patient is asymptomatic. Congestive heart failure (CHF) * Follow-up chest x-rays as needed * Lasix 20 mg daily as needed 08/10/2020 New onset A. fib with RVRstable * Rate is well controlled on metoprolol * Anticoagulate secondary to A. fib with Eliquis HTN (hypertension) * Vital signs every 4 hours * Readjust antihypertensives based on blood pressure and adjustment of metoprolol * Chlorthalidone was held secondary to hyponatremia * Norvasc restarted at a lower dose of 5 mg at bedtime * Blood pressure is adequately treated Hyponatremia * Lasix 20 mg daily as needed * Increase fluid restriction to 2000 mL * Monitor intake and output every 8 hours * Recheck labs in the morning. Congestive heart failure (CHF) * Follow-up chest x-rays as needed * Lasix 20 mg daily as needed * Continue metoprolol Eliquis for stroke and DVT prophylaxis Patient is a DNR/DNI PT OT to eval and treat administrative services director and case management for discharge planning patient has agreed to go to [facility] upon discharge. Respiratory therapy to titrate oxygen to keep O2 saturations between 88 and 94% Patient will be here greater than 96 hours due to the standard 5-day treatment course for Covid 08/11/2020 New onset A. fib with RVRstable * Rate is well controlled on metoprolol * Anticoagulate secondary to A. fib with Eliquis HTN (hypertension) * Vital signs every 4 hours * Readjust antihypertensives based on blood pressure and adjustment of metoprolol * Norvasc raised to 10 mg daily. This is her home dose. * Blood pressure is adequately treated Hyponatremia * Lasix 20 mg daily as needed * Increase fluid restriction to 2000 mL * Monitor intake and output every 8 hours Congestive heart failure (CHF) * Follow-up chest x-rays as needed * Lasix 20 mg daily as needed * Continue metoprolol Eliquis for stroke and DVT prophylaxis Patient is a DNR/DNI PT OT to eval and treat administrative services director and case management for discharge planning patient has agreed to go to [facility] upon discharge. Awaiting acceptance to [facility]. Respiratory therapy to titrate oxygen to keep O2 saturations between 88 and 94% Patient will be here greater than 96 hours due to the standard 5-day treatment course for Covid 08/12/2020 Continue steroid therapy Routine AM Labs Encourage to ambulate inside her room as much as she can IS and FV as directed Fluid restriction to 1500 ml daily Chest x-ray in AM Pot Operator following PT/OT to assess and treat She is being evaluated by Eliceo Love'robert [place] LOS> 96hrs and pending placement due to new rules/protocol for covid-patient [facility] placement 08/13/2020 Continue steroid therapy Routine AM Labs Encourage to ambulate inside her room as much as she can IS and FV as directed Continue Fluid restriction to 1500 ml daily Pot Operator following PT/OT to assess and treat Discharge to [facility] this Tuesday per 08/14/2020 Completed 10 day course of Dexamethasone Routine AM Labs Encourage to ambulate inside her room as much as she can IS and FV as directed Continue Fluid restriction to 1500 ml daily Pot Operator following PT/OT to assess and treat Discharge to [facility] this Tuesday @ 1300 per 08/15/2020 Completed COVID-19 treatment Reports she "feels horrible today" - SOB, general myalgias, cough Reports coughing fit last night Continue IS/Acapella Continue fluid restriction Continue PT/OT CXR ordered WBC increased to 24.15 Recheck labs in AM Procalcitonin ordered Monitor need for oxygen Will hold off discharge today to investigate increasing leukocytosis (steroid vs secondary infection) Plan for discharge Tuesday08/18/20 08/16/2020 Patient reports she feels better today and that "it may have been the weather" WBC again elevated at 34.33 CRP elevated at 30.4 D-dimer 2.64 CTA obtained and shows atelectasis vs PNA in left lung base Procalcitonin obtained from 08/15/20 and was negative Discussed with Dr. Tucker - will start zosyn with concerns of secondary infection Patient had completed 5 day course of rocephin on 08/08/2020 and 3 day course of azithromycin Will monitor daily labs Requiring 1L oxygen today Continue IS/Acapella RT continuing to work with patient Continue fluid restriction 08/17/2020 Patient reports being very weak today - discussed lack of motivation and deconditioning WBC improved to 30.33 CRP stable at 30.6 D-dimer down to 0.[address] Tucker - will stop zosyn and start PO augmentin Requiring 1L oxygen today Encourage improved PO intake Continue IS/acapella Planning on discharge tomorrow - 08/18/2020 to SN[facility] 08/18/2020 Patient reports feeling weak. Unable to feed herself breakfast. Nursing staff reports that patient layed in bed all weekend. She is requesting to work with PT to get her strength back. WBC improved to 13.28 CRP up to 32.4 Procalcitonin ordered. Will continue the patient on Zosyn until results are back. Requiring 1L oxygen today Encourage improved PO intake Continue IS/acapella Planning on discharge tomorrow - 08/19/[address] [facility] Will not recheck labs tomorrow as this is likely contributing to the patient's anemia. 08/19/2020 Patient continues to feel weak but was up working with PT/OT WBC WNL at 7.51 CRP down to 20.0 Procalcitonin 0.67 Off of oxygen now Continues to use IS/Acapella Discussed plan of care with Dr. Calvillo - will continue IV Abx (Zosyn) and treat for possible healthcare acquired PNA Will remain hospitalized until completed 7 days Zosyn
[2020-08-19] MEDS: Gabapentin 300 MG Cap PO SCH (20:51)
[2020-08-19] MEDS: amLODIPine 10 MG Tab PO SCH (20:55)
[2020-08-19] MEDS: Benzonatate 100 MG Cap PO PRN (21:07)
[2020-08-19] MEDS: Benzocaine/Cetylpyridinium/Menthol Lozenge MUCMEM PRN (21:07)
[2020-08-19] MEDS: Codeine/guaiFENesin 10-100 MG/5 ML Syrup 5 ML Cup PO PRN (21:07)
[2020-08-19] MEDS: LOVASTATIN 80 MG PO SCH (21:25)
[2020-08-19] MEDS: ALPRAZolam 0.25 MG Tab PO PRN (22:25)
[2020-08-20] MEDS: Piperacillin/Tazobactam 4.5 GM in Sodium Chloride 0.9% 100 ML IV SCH ×3 (03:35→18:14)
[2020-08-20] MEDS: Primidone 50 MG Tab PO SCH ×2 (08:39→20:16)
[2020-08-20] MEDS: Metoprolol Tartrate 25 MG Tab PO SCH ×2 (08:40→20:11)
[2020-08-20] MEDS: Spironolactone 25 MG Tab PO SCH (08:41)
[2020-08-20] MEDS: Ezetimibe 10 MG Tab PO SCH (08:41)
[2020-08-20] MEDS: Zinc Sulfate 220 MG Cap PO SCH (08:41)
[2020-08-20] MEDS: Losartan 25 MG Tab PO SCH ×2 (08:41→20:11)
[2020-08-20] MEDS: Cholecalciferol (Vitamin D3) 25 MCG Tab PO SCH (08:41)
[2020-08-20] MEDS: Aspirin 81 MG Tab.EC PO SCH (08:41)
[2020-08-20] MEDS: Fluticasone Propionate Nasal Spray 16 GM Bottle NAS SCH ×2 (08:42→20:17)
[2020-08-20] MEDS: guaiFENesin 600 MG Tab.ER PO SCH ×3 (08:42→20:16)
[2020-08-20] MEDS: Apixaban 5 MG Tab PO SCH ×2 (08:42→20:16)
[2020-08-20] MEDS: Trolamine Salicylate/Aloe Vera 10% Crm 85 GM Tube TOP PRN ×3 (08:42→20:32)
--- NOTE | 2020-08-20 09:50 | PCM.PN ---
- General Info Date of Service: 08/20/20 Admission Dx/Problem (Free Text): Admission Diagnosis/Problem Admission Diagnosis/Problem Weakness Subjective Update: In to see Delores. She reports she feels much better again today and has been up ambulating. She has no current complaints. Will continue IV abx and discharge when completed. Per pharmacy last dose will be PM. Plan discharge on Tuesday (08/22/2020) pending continued improvement. She is now off of oxygen. Functional Status: Reports: Pain Controlled, Tolerating Diet, Ambulating, Urinating. Denies: New Symptoms - Review of Systems General: Reports: No Symptoms, Weakness (improving ). Denies: Fever, Fatigue, Malaise, Chills HEENT: Reports: No Symptoms. Denies: Headaches, Sore Throat Pulmonary: Reports: No Symptoms. Denies: Shortness of Breath, Cough, Sputum, Wheezing Cardiovascular: Reports: Dyspnea on Exertion. Denies: Chest Pain, Palpitations Gastrointestinal: Reports: No Symptoms. Denies: Abdominal Pain, Constipation, Diarrhea, Nausea, Vomiting Genitourinary: Reports: No Symptoms. Denies: Pain Musculoskeletal: Reports: No Symptoms Skin: Reports: No Symptoms. Denies: Cyanosis Neurological: Reports: Difficulty Walking, Weakness. Denies: Confusion, Dizziness, Headache, Numbness, Tingling, Gait Disturbance Psychiatric: Reports: No Symptoms - Patient Data Vitals - Most Recent: Last Vital Signs Temp 98.1 F 08/20/20 03:34 Pulse 86 08/20/20 08:40 Resp 18 08/20/20 07:00 BP 115/77 08/20/20 08:41 Pulse Ox 94 L 08/20/20 03:34 Weight - Most Recent: 131 lb I&O - Last 24 Hours: Intake & Output 08/19/20 08/20/20 08/20/20 22:59 06:59 14:59 Intake Total 880 400 Output Total 1400 1300 Balance -520 -900 Med Orders - Current: Current Medications Acetaminophen (Tylenol) 650 mg PO Q4H PRN PRN Reason: Pain (Mild 1-3)/fever Last Admin: 08/19/20 05:39 Dose: 650 mg Documented by: Albuterol (Proventil Neb Soln) 2.5 mg NEB Q2H PRN PRN Reason: Shortness Of Breath/wheezing Albuterol (Proventil Hfa) 2 gm INH Q4H PRN PRN Reason: SOB/Cough Last Admin: 08/19/20 19:57 Dose: 2 puff Documented by: Alprazolam (Xanax) 0.25 mg PO Q12H PRN PRN Reason: Anxiety Last Admin: 08/19/20 22:25 Dose: 0.25 mg Documented by: Amlodipine Besylate (Norvasc) 10 mg PO BEDTIME [facility] Last Admin: 08/19/20 20:55 Dose: 10 mg Documented by: Apixaban (Eliquis) 5 mg PO BID [facility] Last Admin: 08/20/20 08:42 Dose: 5 mg Documented by: Aspirin (Halfprin) 81 mg PO DAILY [facility] Last Admin: 08/20/20 08:41 Dose: 81 mg Documented by: Benzocaine/Menthol (Cepacol Sore Throat) 1 lozenge MUCMEM ASDIRECTED PRN PRN Reason: Cough Last Admin: 08/19/20 21:07 Dose: 1 lozenge Documented by: Benzonatate (Tessalon Perles) 200 mg PO QID PRN PRN Reason: Cough Last Admin: 08/19/20 21:07 Dose: 200 mg Documented by: Calcium Carbonate/Glycine (Tums) 1,000 mg PO Q2H PRN PRN Reason: Indigestion Last Admin: 08/12/20 10:47 Dose: 1,000 mg Documented by: Cholecalciferol (Vitamin D3) 25 mcg PO DAILY [facility] Last Admin: 08/20/20 08:41 Dose: 25 mcg Documented by: Diclofenac Sodium (Voltaren 1% Gel) 1 gm TOP QID PRN PRN Reason: Pain Docusate Sodium (Colace) 100 mg PO BID PRN PRN Reason: Constipation Last Admin: 08/17/20 20:26 Dose: 100 mg Documented by: Ezetimibe (Zetia) 10 mg PO DAILY [facility] Last Admin: 08/20/20 08:41 Dose: 10 mg Documented by: Fluticasone Propionate (Flonase) 0 gm LINDA BID [facility] Last Admin: 08/20/20 08:42 Dose: 1 spray Documented by: Furosemide (Lasix) 20 mg PO DAILY PRN PRN Reason: Edema Gabapentin (Neurontin) 300 mg PO BEDTIME [facility] Last Admin: 08/19/20 20:51 Dose: 300 mg Documented by: Guaifenesin (Mucinex) 600 mg PO TID [facility] Last Admin: 08/20/20 08:42 Dose: 600 mg Documented by: Guaifenesin/Codeine Phosphate (Robitussin Ac) 5 ml PO Q4H PRN PRN Reason: Cough Last Admin: 08/19/20 21:07 Dose: 5 ml Documented by: Piperacillin Sod/Tazobactam (Sod 4.5 gm/ Sodium Chloride) 100 mls @ 25 mls/hr IV Q8H [facility] Last Admin: 08/20/20 03:35 Dose: 25 mls/hr Documented by: Lidocaine (Aspercreme 4%) 1 each TOP DAILY PRN PRN Reason: Pain Losartan Potassium (Cozaar) 50 mg PO BID [facility] Last Admin: 08/20/20 08:41 Dose: 50 mg Documented by: Magnesium Hydroxide (Milk Of Magnesia) 30 ml PO Q4H PRN PRN Reason: Constipation Last Admin: 08/17/20 20:27 Dose: 30 ml Documented by: Meclizine HCl (Antivert) 25 mg PO Q6H PRN PRN Reason: Dizziness Last Admin: 08/14/20 12:26 Dose: 25 mg Documented by: Metoprolol Tartrate (Lopressor) 75 mg PO BID [facility] Last Admin: 08/20/20 08:40 Dose: 75 mg Documented by: Miscellaneous Information (Remove Patch) 1 ea TRDERM BEDTIME [facility] Last Admin: 08/19/20 20:57 Dose: Not Given Documented by: Nitroglycerin (Nitrostat) 0.4 mg SL ASDIRECTED PRN PRN Reason: Chest Pain Lovastatin 80 Mg (Ptom) 80 mg PO BEDTIME [facility] Last Admin: 08/19/20 21:25 Dose: Not Given Documented by: Ondansetron HCl (Zofran) 4 mg IV Q4H PRN PRN Reason: Nausea/Vomiting Primidone (Mysoline) 300 mg PO BID [facility] Last Admin: 08/20/20 08:39 Dose: 300 mg Documented by: Promethazine HCl/Codeine (Phenergan With Codeine) 5 ml PO Q4HR PRN PRN Reason: Cough Last Admin: 08/18/20 20:25 Dose: 5 ml Documented by: Sodium Chloride (Saline Flush) 10 ml FLUSH ASDIRECTED PRN PRN Reason: Keep Vein Open Last Admin: 08/16/20 12:25 Dose: 10 ml Documented by: Spironolactone (Aldactone) 25 mg PO DAILY [facility] Last Admin: 08/20/20 08:41 Dose: 25 mg Documented by: Trolamine Salicylate (Aspercreme 10%) 0 gm TOP Q6H PRN PRN Reason: Pain Last Admin: 08/20/20 08:42 Dose: 1 applic Documented by: Zinc Sulfate (Zincate) 220 mg PO DAILY [facility] Last Admin: 08/20/20 08:41 Dose: 220 mg Documented by: Discontinued Medications Acetaminophen (Tylenol) 975 mg PO ONETIME ONE Stop: 08/04/20 10:01 Last Admin: 08/04/20 10:52 Dose: 975 mg Documented by: Al Hydroxide/Mg Hydroxide (Mag-Al Plus) 30 ml PO Q4H PRN PRN Reason: Heartburn Stop: 08/07/20 04:13 Last Admin: 08/05/20 04:23 Dose: 30 ml Documented by: Amlodipine Besylate (Norvasc) 5 mg PO BEDTIME [facility] Last Admin: 08/08/20 21:01 Dose: 5 mg Documented by: Amlodipine Besylate (Norvasc) 5 mg PO ONETIME ONE Stop: 08/09/20 17:13 Last Admin: 08/10/20 08:45 Dose: Not Given Documented by: Amlodipine Besylate (Norvasc) 10 mg PO BEDTIME [facility] Amlodipine Besylate (Norvasc) 5 mg PO BEDTIME [facility] Last Admin: 08/10/20 20:18 Dose: 5 mg Documented by: Amlodipine Besylate (Norvasc) 10 mg PO DAILY [facility] Amoxicillin/Clavulanate Potassium (Augmentin 500 Mg\\125 Mg) 1 tab PO Q12HR [facility] Last Admin: 08/17/20 21:22 Dose: 1 tab Documented by: Chlorthalidone (Chlorthalidone) 12.5 mg PO DAILY [facility] Last Admin: 08/07/20 16:41 Dose: Not Given Documented by: Dexamethasone (Dexamethasone) 6 mg PO Q24H [facility] Stop: 08/13/20 16:01 Last Admin: 08/13/20 16:02 Dose: 6 mg Documented by: Diltiazem HCl (Cardizem) 10 mg IVPUSH ONETIME ONE Stop: 08/05/20 03:24 Last Admin: 08/05/20 03:34 Dose: 10 mg Documented by: Diltiazem HCl (Cardizem) 10 mg IVPUSH ONETIME ONE Stop: 08/05/20 04:05 Last Admin: 08/05/20 04:11 Dose: 10 mg Documented by: Enoxaparin Sodium (Lovenox) 30 mg SUBCUT Q12H [facility] Last Admin: 08/04/20 16:56 Dose: 30 mg Documented by: Enoxaparin Sodium (Lovenox) 30 mg SUBCUT Q12H [facility] Last Admin: 08/05/20 17:33 Dose: 30 mg Documented by: Famotidine (Pepcid) 20 mg IVPUSH ONETIME ONE Stop: 08/05/20 09:01 Last Admin: 08/05/20 09:43 Dose: Not Given Documented by: Furosemide (Lasix) 40 mg IVPUSH NOW [facility] Stop: 08/04/20 17:00 Furosemide (Lasix) 20 mg IVPUSH ONETIME ONE Stop: 08/04/20 22:01 Last Admin: 08/04/20 22:43 Dose: 20 mg Documented by: Furosemide (Lasix) 40 mg IVPUSH NOW ONE Stop: 08/06/20 14:16 Last Admin: 08/06/20 14:29 Dose: 40 mg Documented by: Dextrose/Sodium Chloride (Dextrose 5%-Normal Saline) 1,000 mls @ 150 mls/hr IV ASDIRECTED [facility] Last Admin: 08/04/20 10:51 Dose: 150 mls/hr Documented by: Remdesivir 200 mg/ Sodium (Chloride) 250 mls @ 250 mls/hr IV ONETIME ONE Stop: 08/04/20 14:33 Last Admin: 08/04/20 16:54 Dose: 250 mls/hr Documented by: Remdesivir 100 mg/ Sodium (Chloride) 100 mls @ 100 mls/hr IV Q24H [facility] Stop: 08/08/20 16:59 Last Admin: 08/08/20 15:31 Dose: 100 mls/hr Documented by: Azithromycin 500 mg/ Sodium (Chloride) 250 mls @ 250 mls/hr IV Q24H [facility] Stop: 08/06/20 17:59 Last Admin: 08/06/20 16:58 Dose: 250 mls/hr Documented by: Ceftriaxone Sodium 2 gm/ (Sodium Chloride) 100 mls @ 200 mls/hr IV Q24H [facility] Stop: 08/08/20 18:29 Last Admin: 08/08/20 17:36 Dose: 200 mls/hr Documented by: Sodium Chloride (Normal Saline) Confirm Administered Dose 250 mls @ as directed .ROUTE .STK-MED ONE Stop: 08/04/20 20:59 Last Admin: 08/04/20 21:14 Dose: 50 mls/hr Documented by: Diltiazem HCl 100 mg/ Sodium (Chloride) 100 mls @ 5 mls/hr IV TITRATE [facility]; Protocol Last Titration: 08/05/20 08:00 Dose: 0 mg/hr, 0 mls/hr Documented by: Potassium Chloride 10 meq/ (Premix) 100 mls @ 100 mls/hr IV Q1H [facility] Stop: 08/05/20 12:59 Last Admin: 08/05/20 12:51 Dose: 100 mls/hr Documented by: Piperacillin Sod/Tazobactam (Sod 4.5 gm/ Sodium Chloride) 100 mls @ 200 mls/hr IV ONETIME ONE Stop: 08/16/20 10:15 Last Admin: 08/16/20 11:05 Dose: 200 mls/hr Documented by: Sodium Chloride (Normal Saline) 500 mls @ 999 mls/hr IV .BOLUS ONE Stop: 08/16/20 10:47 Last Admin: 08/16/20 11:04 Dose: 999 mls/hr Documented by: Sodium Chloride (Normal Saline) 100 mls @ 75 mls/hr IV ASDIRECTED [facility] Iopamidol (Isovue-370 (76%)) 100 ml IVPUSH ONETIME ONE Stop: 08/16/20 12:03 Last Admin: 08/16/20 12:25 Dose: 100 ml Documented by: Lidocaine (Aspercreme 4%) 1 each TOP DAILY [facility] Last Admin: 08/18/20 10:54 Dose: 1 each Documented by: Magnesium Hydroxide (Milk Of Magnesia) 30 ml PO ONETIME ONE Stop: 08/13/20 09:48 Last Admin: 08/13/20 09:56 Dose: 30 ml Documented by: Magnesium Hydroxide (Milk Of Magnesia) 30 ml PO ONETIME ONE Stop: 08/18/20 08:57 Last Admin: 08/18/20 09:23 Dose: 30 ml Documented by: Metoprolol Tartrate (Lopressor) 2.5 mg IVPUSH ONETIME ONE Stop: 08/05/20 07:47 Last Admin: 08/05/20 07:56 Dose: 2.5 mg Documented by: Metoprolol Tartrate (Lopressor) 50 mg PO BIDMEALS [facility] Last Admin: 08/06/20 08:24 Dose: 50 mg Documented by: Metoprolol Tartrate (Lopressor) 2.5 mg IVPUSH ONETIME ONE Stop: 08/05/20 08:13 Last Admin: 08/05/20 17:45 Dose: 2.5 mg Documented by: Metoprolol Tartrate (Lopressor) 75 mg PO BIDMEALS [facility] Last Admin: 08/11/20 17:36 Dose: 75 mg Documented by: Metoprolol Tartrate (Lopressor) 25 mg PO ONETIME ONE Stop: 08/06/20 09:31 Last Admin: 08/06/20 09:31 Dose: 25 mg Documented by: Non-Formulary Medication (Docusate Sodium [Colace]) 150 mg PO DAILY [facility] Potassium Chloride (Klor-Con M20) 40 meq PO ONETIME ONE Stop: 08/06/20 11:01 Last Admin: 08/06/20 11:58 Dose: 40 meq Documented by: Potassium Chloride (Klor-Con M20) 40 meq PO BID [facility] Stop: 08/18/20 09:01 Last Admin: 08/17/20 20:26 Dose: 40 meq Documented by: Trolamine Salicylate (Aspercreme 10%) 0 gm TOP Q1H PRN PRN Reason: Pain - Exam Quality Assessment: DVT Prophylaxis. No: Supplemental Oxygen General: Alert, Oriented, Cooperative, No Acute Distress HEENT: Pupils Equal, Pupils Reactive, Mucous Membr. Moist/[place] Neck: Supple, Trachea Midline Lungs: Normal Respiratory Effort, Decreased Breath Sounds Cardiovascular: Regular Rate, Regular Rhythm, Murmurs GI/Abdominal Exam: Normal Bowel Sounds, Soft, Non-Tender, No Distention (Female) Exam: Deferred Back Exam: Normal Inspection, Full Range of Motion Extremities: Normal Inspection, Normal Range of Motion, Non-Tender, No Pedal Edema, Normal Capillary Refill Skin: Warm, Dry, Intact Neurological: No New Focal Deficit Psy/Mental Status: Alert, Normal Affect, Normal Mood Sepsis Event Note - Evaluation Sepsis Screening Result: No Definite Risk - Focused Exam Vital Signs: Vital Signs Temp Pulse Resp BP Pulse Ox 08/20/20 08:41 115/77 08/20/20 08:40 86 115/77 08/20/20 07:00 18 08/20/20 06:00 20 08/20/20 05:00 20 08/20/20 03:34 98.1 F 69 18 130/89 94 L 08/20/20 01:00 24 H 08/20/20 00:00 21 H 08/19/20 23:00 20 08/19/20 22:00 21 H - Problem List & Annotations (1) Acute hypoxemic respiratory failure SNOMED Code(s): 850771185 Code(s): J96.01 - ACUTE RESPIRATORY FAILURE WITH HYPOXIA Status: Acute Priority: High Current Visit: Yes (2) Atrial fibrillation with rapid ventricular response SNOMED Code(s): 059899921958674 Code(s): I48.91 - UNSPECIFIED ATRIAL FIBRILLATION Status: Resolved Priority: High Current Visit: Yes (3) COVID-19 determined by clinical diagnostic criteria SNOMED Code(s): 784950213, 612100194 Code(s): U07.1 - COVID-19 Status: Acute Priority: High Current Visit: Yes (4) Congestive heart failure (CHF) SNOMED Code(s): 69227812 Code(s): I50.9 - HEART FAILURE, UNSPECIFIED Status: Acute Priority: High Current Visit: Yes Qualifiers: Heart failure type: unspecified Heart failure chronicity: unspecified Qualified Code(s): I50.9 - Heart failure, unspecified (5) Hyponatremia SNOMED Code(s): 43652662 Code(s): E87.1 - HYPO-OSMOLALITY AND HYPONATREMIA Status: Acute Priority: High Current Visit: Yes (6) Hypoxia SNOMED Code(s): 995153813 Code(s): R09.02 - HYPOXEMIA Status: Acute Priority: High Current Visit: Yes (7) Leukocytosis, unspecified SNOMED Code(s): 928377281, 683359073 Code(s): D72.829 - ELEVATED WHITE BLOOD CELL COUNT, UNSPECIFIED Status: Acute Priority: High Current Visit: Yes Qualifiers: Leukocytosis type: monocytosis Qualified Code(s): D72.821 - Monocytosis (symptomatic) (8) New onset atrial fibrillation SNOMED Code(s): 36515931 Code(s): I48.91 - UNSPECIFIED ATRIAL FIBRILLATION Status: Acute Priority: High Current Visit: Yes (9) Pneumonia due to 2019 novel coronavirus SNOMED Code(s): 880250321224028375 Code(s): U07.1 - COVID-19; J12.89 - OTHER VIRAL PNEUMONIA Status: Acute Priority: High Current Visit: Yes (10) Essential tremor SNOMED Code(s): 401563680 Code(s): G25.0 - ESSENTIAL TREMOR Status: Chronic Priority: Medium Current Visit: Yes (11) CAD (coronary artery disease) SNOMED Code(s): 30257753 Code(s): I25.10 - ATHSCL HEART DISEASE OF [place] CORONARY ARTERY W/O ANG PCTRS Status: Chronic Priority: Low Current Visit: No Qualifiers: Coronary Disease-Associated Artery/Lesion type: unspecified vessel or lesion type [place] vs. transplanted heart: unspecified whether [place] or transplanted heart Associated angina: with unspecified angina Qualified Code(s): I25.119 - Atherosclerotic heart disease of [place] coronary artery with unspecified angina pectoris (12) GERD (gastroesophageal reflux disease) SNOMED Code(s): 322206798 Code(s): K21.9 - GASTRO-ESOPHAGEAL REFLUX DISEASE WITHOUT ESOPHAGITIS Status: Chronic Priority: Low Current Visit: No Qualifiers: Esophagitis presence: esophagitis presence not specified Qualified Code(s): K21.9 - Gastro-esophageal reflux disease without esophagitis (13) HTN (hypertension) SNOMED Code(s): 90447765 Code(s): I10 - ESSENTIAL (PRIMARY) HYPERTENSION Status: Chronic Priority: Low Current Visit: No Qualifiers: Hypertension type: essential hypertension Qualified Code(s): I10 - Essential (primary) hypertension (14) Osteoarthritis SNOMED Code(s): 354800780 Code(s): M19.90 - UNSPECIFIED OSTEOARTHRITIS, UNSPECIFIED SITE Status: Chronic Priority: Low Current Visit: No Qualifiers: Osteoarthritis location: unspecified site Osteoarthritis type: unspecified Qualified Code(s): M19.90 - Unspecified osteoarthritis, unspecified site (15) Elevated d-dimer SNOMED Code(s): 618553448 Code(s): R79.89 - OTHER SPECIFIED ABNORMAL FINDINGS OF BLOOD CHEMISTRY Status: Acute Priority: High Current Visit: Yes (16) Pneumonia SNOMED Code(s): 688953804 Code(s): J18.9 - PNEUMONIA, UNSPECIFIED ORGANISM Status: Acute Priority: High Current Visit: Yes Qualifiers: Pneumonia type: due to unspecified organism Laterality: left Lung location: lower lobe of lung Qualified Code(s): J18.9 - Pneumonia, unspecified organism - Problem List Review Problem List Initiated/Reviewed/Updated: Yes - Assessment Assessment:: 08/04/20 * 85-year-old female with gradual onset weakness, cough, decreased appetite, fever chills and diaphoresis that started about a week ago. Has been exposed to COVID-19 about 2 weeks ago at a . * Presented to the emergency department and was hypoxemic at 86% on room air. * Initial vital signs in the emergency department reveal a temp of 37.3 Celsius, pulse 84, respiratory rate 20, pressure 170/68, pulse ox 91% on 2 L of oxygen per nasal cannula * Labs in the ED revealed WBC 14.19, sodium 126, potassium 4.1, BUN 8, creatinine 0.6, GFR greater than 60, lactic acid 1.4, LDH 221, troponin I 0.019, C-reactive protein 18.7, D-dimer 1.03, ferritin 142, proBNP 2163, she is Covid positive, urinalysis is unremarkable for infection. Sets of blood cultures were also collected in the emergency department. * Portable chest x-ray reveals a mild increase in interstitial lung markings bilaterally. There is a nodule airspace opacity within the right midlung zone. Findings suggest a pneumonic infiltrate. Consider atypical viral etiology. Pleural spaces otherwise unremarkable with no pleural effusion or pneumothorax. Heart size is mildly prominent. 08/05/2020 * New onset atrial fibrillation with RVR overnight. Stabilized with IV m etoprolol and oral metoprolol. * Patient did have some chest pain with the chest pain and her troponin increased slightly to 0.06 * Patient's chest pain when I examined was mostly in her abdomen. This did resolve with resolution of her A. fib RVR. * Patient continues to have hyponatremia 129, white count is elevated at 15.1 likely secondary to inflammation, hypokalemia with potassium of 3.2 and wors ening of her proBNP at 3894. * Procalcitonin is less than 0.05. This makes it unlikely that her white count is secondary to significant bacterial infection. PLAN: Pneumonia due to 2019 novel coronavirus, Acute hypoxemic respiratory failure * Convalescent plasma 2 units today. I spoke with the patient to provide information about convalescent plasma for herself. I offered her the fax sheet for patients and caregivers for COVID-19 convalescent plasma to read and review. I stated the therapy has been approved by an emergency youth authorization process and has not fully been FDA reviewed or approved. I shared potential risks from the therapy including transmission of blood-borne pathogen such as HIV and hepatitis C, allergic and transfusion related reactions, post transfusion purpura. Additionally theoretical risks including a phenomenon called antibodydependent enhancement of infection such as seen in dengue or attenuation of an immune response that may make patients more susceptible to reinfection. I discussed there are other potential treatment options that are currently not FDA approved to treat COVID-19. Offered opportunity to ask questions and all questions were answered. The patient voiced understanding and agreed to proceed with treatment for herself. * Remdesivir 200 mg IV x1 dose then 100 mg daily x4 more doses. * Dexamethasone 6 mg p.o. daily x10 days * Rocephin 2 g daily x5 days * Zithromax 500 mg IV daily x3 days * Incentive spirometer and flutter valve every hour while awake 08/06/20 New onset A. fib with RVR * Rate is still not controlled on current dose of metoprolol. Increase metoprolol to 75 mg by mouth twice daily. * Anticoagulate secondary to A. fib with Eliquis HTN (hypertension) * Vital signs every 4 hours * Readjust antihypertensives based on blood pressure and adjustment of metoprolol Hyponatremia * Restart Lasix in the morning 20 mg daily as needed * 1500 mL fluid restriction every 24 hours * Monitor intake and output every 8 hours Congestive heart failure (CHF) * Furosemide 40mg IV x 1 dose today. * Follow-up chest x-rays as needed * Echocardiogram pending Eliquis for stroke and DVT prophylaxis Patient is a DNR/DNI PT OT to eval and treat Dietitian consult regarding patient's caloric needs social services manager and case management for discharge planning Respiratory therapy to titrate oxygen to keep O2 saturations between 88 and 94% Change patient to MedSurg status with telemetry and continuous pulse oximetry. Discontinue Adkins catheter, but maintain strict VIJAYA and daily weight Patient will be here greater than 96 hours due to the standard 5-day treatment course for Covid 08/07/20 New onset A. fib with RVR * Rate is well controlled on metoprolol * Anticoagulate secondary to A. fib with Eliquis HTN (hypertension) * Vital signs every 4 hours * Readjust antihypertensives based on blood pressure and adjustment of metoprolol * Start chlorthalidone 12.5 mg daily Hyponatremia * Restart Lasix in the morning 20 mg daily as needed * 1500 mL fluid restriction every 24 hours * Monitor intake and output every 8 hours * Sodium 129 today. Upon further investigation and patient's previous hospital visits, this is a chronic issue. Will have patient's primary physician follow-up regarding this as patient is asymptomatic. Congestive heart failure (CHF) * Follow-up chest x-rays as needed * Lasix 20 mg daily as needed 08/08/2020 New onset A. fib with RVRstable * Rate is well controlled on metoprolol * Anticoagulate secondary to A. fib with Eliquis HTN (hypertension) * Vital signs every 4 hours * Readjust antihypertensives based on blood pressure and adjustment of metoprolol * Chlorthalidone was held secondary to hyponatremia * Norvasc restarted at a lower dose of 5 mg daily Hyponatremia * Lasix in the morning 20 mg daily as needed * 1500 mL fluid restriction every 24 hours * Monitor intake and output every 8 hours * Sodium 131 today. Upon further investigation and patient's previous hospital visits, this is a chronic issue. Will have patient's primary physician follow-up regarding this as patient is asymptomatic. Congestive heart failure (CHF) * Follow-up chest x-rays as needed * Lasix 20 mg daily as needed 08/09/2020 New onset A. fib with RVRstable * Rate is well controlled on metoprolol * Anticoagulate secondary to A. fib with Eliquis HTN (hypertension) * Vital signs every 4 hours * Readjust antihypertensives based on blood pressure and adjustment of metoprolol * Chlorthalidone was held secondary to hyponatremia * Norvasc restarted at a lower dose of 5 mg at bedtime Hyponatremia * Lasix in the morning 20 mg daily as needed * 1500 mL fluid restriction every 24 hours * Monitor intake and output every 8 hours * Sodium 133improvedtoday. Upon further investigation and patient's previous hospital visits, this is a chronic issue. Will have patient's primary physician follow-up regarding this as patient is asymptomatic. Congestive heart failure (CHF) * Follow-up chest x-rays as needed * Lasix 20 mg daily as needed 08/10/2020 New onset A. fib with RVRstable * Rate is well controlled on metoprolol * Anticoagulate secondary to A. fib with Eliquis HTN (hypertension) * Vital signs every 4 hours * Readjust antihypertensives based on blood pressure and adjustment of metoprolol * Chlorthalidone was held secondary to hyponatremia * Norvasc restarted at a lower dose of 5 mg at bedtime * Blood pressure is adequately treated Hyponatremia * Lasix 20 mg daily as needed * Increase fluid restriction to 2000 mL * Monitor intake and output every 8 hours * Recheck labs in the morning. Congestive heart failure (CHF) * Follow-up chest x-rays as needed * Lasix 20 mg daily as needed * Continue metoprolol Eliquis for stroke and DVT prophylaxis Patient is a DNR/DNI PT OT to eval and treat social services manager and case management for discharge planning patient has agreed [facility] discharge. Respiratory therapy to titrate oxygen to keep O2 saturations between 88 and 94% Patient will be here greater than 96 hours due to the standard 5-day treatment course for Covid 08/11/2020 New onset A. fib with RVRstable * Rate is well controlled on metoprolol * Anticoagulate secondary to A. fib with Eliquis HTN (hypertension) * Vital signs every 4 hours * Readjust antihypertensives based on blood pressure and adjustment of metoprolol * Norvasc raised to 10 mg daily. This is her home dose. * Blood pressure is adequately treated Hyponatremia * Lasix 20 mg daily as needed * Increase fluid restriction to 2000 mL * Monitor intake and output every 8 hours Congestive heart failure (CHF) * Follow-up chest x-rays as needed * Lasix 20 mg daily as needed * Continue metoprolol Eliquis for stroke and DVT prophylaxis Patient is a DNR/DNI PT OT to eval and treat social services manager and case management for discharge planning patient has agreed to [facility] to [facility] discharge. [facility] Respiratory therapy to titrate oxygen to keep O2 saturations between 88 and 94% Patient will be here greater than 96 hours due to the standard 5-day treatment course for Covid 08/12/2020 Continue steroid therapy Routine AM Labs Encourage to ambulate inside her room as much as she can IS and FV as directed Fluid restriction to 1500 ml daily Chest x-ray in AM Philosophy Faculty Member following PT/OT to assess and treat She is being evaluated by Eliceo Fregoso [place] LOS> 96hrs and pending placement due to new rules/protocol for covid-patient penitentiary placement 08/13/2020 Continue steroid therapy Routine AM Labs Encourage to ambulate inside her room as much as she can IS and FV as directed Continue Fluid restriction to 1500 ml daily Philosophy Faculty Member following PT/OT to assess and treat Discharge to [facility] this Tuesday per SW 08/14/2020 Completed 10 day course of Dexamethasone Routine AM Labs Encourage to ambulate inside her room as much as she can IS and FV as directed Continue Fluid restriction to 1500 ml daily Philosophy Faculty Member following PT/OT to assess and treat Discharge to [facility] this Tuesday @ 1300 per SW 08/15/2020 Completed COVID-19 treatment Reports she "feels horrible today" - SOB, general myalgias, cough Reports coughing fit last night Continue IS/Acapella Continue fluid restriction Continue PT/OT CXR ordered WBC increased to 24.15 Recheck labs in AM Procalcitonin ordered Monitor need for oxygen Will hold off discharge today to investigate increasing leukocytosis (steroid vs secondary infection) Plan for discharge Tuesday08/18/20 08/16/2020 Patient reports she feels better today and that "it may have been the weather" WBC again elevated at 34.33 CRP elevated at 30.4 D-dimer 2.64 CTA obtained and shows atelectasis vs PNA in left lung base Procalcitonin obtained from 08/15/20 and was negative Discussed with Dr. Tucker - will start zosyn with concerns of secondary infection Patient had completed 5 day course of rocephin on 08/08/2020 and 3 day course of azithromycin Will monitor daily labs Requiring 1L oxygen today Continue IS/Acapella RT continuing to work with patient Continue fluid restriction 08/17/2020 Patient reports being very weak today - discussed lack of motivation and deconditioning WBC improved to 30.33 CRP stable at 30.6 D-dimer down to 0.[address] Tucker - will stop zosyn and start PO augmentin Requiring 1L oxygen today Encourage improved PO intake Continue IS/acapella Planning on discharge tomorrow - 08/18/2020 to SNF 08/18/2020 Patient reports feeling weak. Unable to feed herself breakfast. Nursing staff reports that patient layed in bed all weekend. She is requesting to work with PT to get her strength back. WBC improved to 13.28 CRP up to 32.4 Procalcitonin ordered. Will continue the patient on Zosyn until results are back. Requiring 1L oxygen today Encourage improved PO intake Continue IS/acapella Planning on discharge tomorrow - 08/19/2020 to SNF Will not recheck labs tomorrow as this is likely contributing to the patient's anemia. 08/19/2020 Patient continues to feel weak but was up working with PT/OT WBC WNL at 7.51 CRP down to 20.0 Procalcitonin 0.67 Off of oxygen now Continues to use IS/Acapella Discussed plan of care with Dr. Calvillo - will continue IV Abx (Zosyn) and treat for possible healthcare acquired PNA Will remain hospitalized until completed 7 days Zosyn 08/20/2020 Continues to work with PT/OT Labs not obtained today Remains off of oxygen Repeat labs tomorrow Continues to use acapella and IS Continue Zosyn for full 7 days Planning discharge Tuesday as patients last dose of Zosyn is night. Reports she feels better today and has been working with therapies. - Plan Plan:: Acute: Covid-19 Infection Viral Pneumonitis/Atypical Pneumonia Elevated d-dimer Ascites vs. healthcare acquired PNA vs. aspiration PNA Leukocytosis, POA -Completed 2 units of convalescent plasma -Completed 5 day course of Veklury -Completed 5 days of Rocephin and 3 days of Azithromycin -10 day course of Dexamethasone competed -Continue IS and FV as directed -She is off of oxygen today -Chest xray today shows persisting atelectasis with the left base with linear scar within the left upper lung. Nothing acute is otherwise definitely appre ciated. -WBC decreased 13.20 --> 24.15-->34.33-->30.33-->13.28-->7.51 -UA collected was unremarkable for infection New onset A. fib with RVRresolved -Rate is well controlled on metoprolol tartrate 75 mg po BID -Anticoagulate secondary to A. fib with Eliquis -HR is well controlled: 60s-70s HTN -Vital signs every 4 hours -BP Meds: Metoprolol tartrate 75 mg po BID, Aldactone 25 mg po daily, Losartan 50 mg po BID, Norvasc 10 mg po daily, and PRN Lasix 20 mg po daily -Blood pressure is adequately controlled Hypo-osmolar hyponatremia, stable -She is not symptomatic -Na now at 133 -On Lasix 20 mg daily as needed -Continue fluid restriction to 1500 ml daily -Continue to monitor intake and output every 8 hours Congestive heart failure (CHF) with Preserved EF -Has likely pulmonary HTN -2D echo shows normal EF 60-65%. No RWMA. Moderate calcification and thickening of mitral leaflets. Moderate-Severe RVSP at 62.7 mmHg -Continue Lasix and Aldactone -1.5 L for fluid restriction and AHA diet Mild Hypochloremia with Cl, 96, POA, resolved Hyperglycemia, POA, resolved -Likely due to steroid and now off steroids -Carries no hx/o diabetes or glucose intolerance -We will monitor Hypoalbuminemia, POA -Albumin of 2.8; now 1.9 -Philosophy Faculty Member following -Nursing reporting minimal intake Macrocytic Normochromic Anemia with Hgb of 9.1, Stable -occult stool negative Chronic: Impaired Vision and Hearing HTN HLD Hx/o [place] CAD S/p stents placement Asthma HIWOT Chronic Constipation Recurrent UTI OA Hx/o esophageal cancer Hx/o Splenectomy Anxiety ET
[2020-08-20] MEDS: Gabapentin 300 MG Cap PO SCH (20:16)
[2020-08-20] MEDS: amLODIPine 10 MG Tab PO SCH (20:16)
[2020-08-20] MEDS: Albuterol 6.7 GM Inhaler INH PRN (20:27)
[2020-08-20] MEDS: ALPRAZolam 0.25 MG Tab PO PRN (22:05)
[2020-08-20] MEDS: LOVASTATIN 80 MG PO SCH (22:36)
[2020-08-21] MEDS: Piperacillin/Tazobactam 4.5 GM in Sodium Chloride 0.9% 100 ML IV SCH ×3 (03:23→18:45)
--- NOTE | 2020-08-21 07:41 | PCM.PN ---
- General Info Date of Service: 08/21/20 Admission Dx/Problem (Free Text): Admission Diagnosis/Problem Admission Diagnosis/Problem Weakness Subjective Update: In to see Delores. She reports she feels better than yesterday. Remains off of oxygen. Continues to ambulate. Will complete 7 day ABX course tomorrow. Patient has been accepted to [facility] and will discharge tomorrow at 1300 pending continued stability/improvement. Functional Status: Reports: Pain Controlled, Tolerating Diet, Ambulating, Urinating, Incentive Spirometry, Other (acapella ). Denies: New Symptoms - Review of Systems General: Reports: Weakness (improving ). Denies: Fever, Fatigue, Malaise, Chills HEENT: Reports: No Symptoms. Denies: Headaches, Sore Throat Pulmonary: Reports: No Symptoms. Denies: Shortness of Breath, Cough, Sputum, Wheezing Cardiovascular: Reports: No Symptoms. Denies: Chest Pain, Palpitations, Dyspnea on Exertion, Edema Gastrointestinal: Reports: No Symptoms. Denies: Abdominal Pain, Constipation, Diarrhea, Nausea, Vomiting Genitourinary: Reports: No Symptoms. Denies: Pain Musculoskeletal: Reports: No Symptoms Skin: Reports: No Symptoms. Denies: Cyanosis Neurological: Reports: No Symptoms. Denies: Confusion, Headache, Numbness, Pre- Existing Deficit, Seizure, Syncope, Tingling, Difficulty Walking, Gait Disturbance Psychiatric: Reports: No Symptoms - Patient Data Vitals - Most Recent: Last Vital Signs Temp 98.8 F 08/21/20 03:18 Pulse 69 08/21/20 03:18 Resp 18 08/21/20 03:18 BP 127/91 H 08/21/20 03:18 Pulse Ox 93 L 08/21/20 03:18 Weight - Most Recent: 130 lb 12.8 oz I&O - Last 24 Hours: Intake & Output 08/20/20 08/21/20 08/21/20 22:59 06:59 14:59 Intake Total 640 600 Output Total 1400 1850 Balance -760 -1250 Lab Results Last 24 Hours: Laboratory Results - last 24 hr 08/21/20 08/21/20 Range/Units 04:35 04:35 WBC 7.63 (3.98-10.04) K/mm3 RBC 3.05 L (3.98-5.22) M/mm3 Hgb 9.2 L (11.2-15.7) gm/dl Hct 28.6 L (34.1-44.9) % MCV 93.8 (79.4-94.8) fl MCH 30.2 (25.6-32.2) pg MCHC 32.2 (32.2-35.5) g/dl RDW Std Deviation 50.4 H (36.4-46.3) fL Plt Count 362 (182-369) K/mm3 MPV 10.3 (9.4-12.3) fl Neut % (Auto) 34.3 (34.0-71.1) % Lymph % (Auto) 23.5 (19.3-51.7) % [place] % (Auto) 38.5 H (4.7-12.5) % Eos % (Auto) 3.0 (0.7-5.8) Baso % (Auto) 0.3 (0.1-1.2) % Neut # (Auto) 2.62 (1.56-6.13) K/mm3 Lymph # (Auto) 1.79 (1.18-3.74) K/mm3 [place] # (Auto) 2.94 H (0.24-0.36) K/mm3 Eos # (Auto) 0.23 (0.04-0.36) K/mm3 Baso # (Auto) 0.02 (0.01-0.08) K/mm3 Sodium 134 L (136-145) mEq/L Potassium 4.4 (3.5-5.1) mEq/L Chloride 100 (98-107) mEq/L Carbon Dioxide 25 (21-32) mEq/L Anion Gap 13.4 (5-15) BUN 11 (7-18) mg/dL Creatinine 0.6 (0.55-1.02) mg/dL Est Cr Clr Drug Dosing 48.34 mL/min Estimated GFR (MDRD) > 60 (>60) mL/min BUN/Creatinine Ratio 18.3 H (14-18) Glucose 105 (83-115) mg/dL Calcium 8.2 L (8.5-10.1) mg/dL Magnesium 2.1 (1.8-2.4) mg/dl Total Bilirubin 0.3 (0.2-1.0) mg/dL AST 29 (15-37) U/L ALT 38 (14-59) U/L Alkaline Phosphatase 69 (46-116) U/L Total Protein 6.5 (6.4-8.2) g/dl Albumin 2.0 L (3.4-5.0) g/dl Globulin 4.5 gm/dL Albumin/Globulin Ratio 0.4 L (1-2) Med Orders - Current: Current Medications Acetaminophen (Tylenol) 650 mg PO Q4H PRN PRN Reason: Pain (Mild 1-3)/fever Last Admin: 08/19/20 05:39 Dose: 650 mg Documented by: Albuterol (Proventil Neb Soln) 2.5 mg NEB Q2H PRN PRN Reason: Shortness Of Breath/wheezing Albuterol (Proventil Hfa) 2 gm INH Q4H PRN PRN Reason: SOB/Cough Last Admin: 08/20/20 20:27 Dose: 2 puff Documented by: Alprazolam (Xanax) 0.25 mg PO Q12H PRN PRN Reason: Anxiety Last Admin: 08/20/20 22:05 Dose: 0.25 mg Documented by: Amlodipine Besylate (Norvasc) 10 mg PO BEDTIME [facility] Last Admin: 08/20/20 20:16 Dose: 10 mg Documented by: Apixaban (Eliquis) 5 mg PO BID [facility] Last Admin: 08/20/20 20:16 Dose: 5 mg Documented by: Aspirin (Halfprin) 81 mg PO DAILY [facility] Last Admin: 08/20/20 08:41 Dose: 81 mg Documented by: Benzocaine/Menthol (Cepacol Sore Throat) 1 lozenge MUCMEM ASDIRECTED PRN PRN Reason: Cough Last Admin: 08/19/20 21:07 Dose: 1 lozenge Documented by: Benzonatate (Tessalon Perles) 200 mg PO QID PRN PRN Reason: Cough Last Admin: 08/19/20 21:07 Dose: 200 mg Documented by: Calcium Carbonate/Glycine (Tums) 1,000 mg PO Q2H PRN PRN Reason: Indigestion Last Admin: 08/12/20 10:47 Dose: 1,000 mg Documented by: Cholecalciferol (Vitamin D3) 25 mcg PO DAILY [facility] Last Admin: 08/20/20 08:41 Dose: 25 mcg Documented by: Diclofenac Sodium (Voltaren 1% Gel) 1 gm TOP QID PRN PRN Reason: Pain Docusate Sodium (Colace) 100 mg PO BID PRN PRN Reason: Constipation Last Admin: 08/17/20 20:26 Dose: 100 mg Documented by: Ezetimibe (Zetia) 10 mg PO DAILY [facility] Last Admin: 08/20/20 08:41 Dose: 10 mg Documented by: Fluticasone Propionate (Flonase) 0 gm LINDA BID [facility] Last Admin: 08/20/20 20:17 Dose: 1 spray Documented by: Furosemide (Lasix) 20 mg PO DAILY PRN PRN Reason: Edema Gabapentin (Neurontin) 300 mg PO BEDTIME [facility] Last Admin: 08/20/20 20:16 Dose: 300 mg Documented by: Guaifenesin (Mucinex) 600 mg PO TID [facility] Last Admin: 08/20/20 20:16 Dose: 600 mg Documented by: Guaifenesin/Codeine Phosphate (Robitussin Ac) 5 ml PO Q4H PRN PRN Reason: Cough Last Admin: 08/19/20 21:07 Dose: 5 ml Documented by: Piperacillin Sod/Tazobactam (Sod 4.5 gm/ Sodium Chloride) 100 mls @ 25 mls/hr IV Q8H [facility] Last Admin: 08/21/20 03:23 Dose: 25 mls/hr Documented by: Lidocaine (Aspercreme 4%) 1 each TOP DAILY PRN PRN Reason: Pain Losartan Potassium (Cozaar) 50 mg PO BID [facility] Last Admin: 08/20/20 20:11 Dose: 50 mg Documented by: Magnesium Hydroxide (Milk Of Magnesia) 30 ml PO Q4H PRN PRN Reason: Constipation Last Admin: 08/17/20 20:27 Dose: 30 ml Documented by: Meclizine HCl (Antivert) 25 mg PO Q6H PRN PRN Reason: Dizziness Last Admin: 08/14/20 12:26 Dose: 25 mg Documented by: Metoprolol Tartrate (Lopressor) 75 mg PO BID [facility] Last Admin: 08/20/20 20:11 Dose: 75 mg Documented by: Miscellaneous Information (Remove Patch) 1 ea TRDERM BEDTIME [facility] Last Admin: 08/20/20 22:35 Dose: Not Given Documented by: Nitroglycerin (Nitrostat) 0.4 mg SL ASDIRECTED PRN PRN Reason: Chest Pain Lovastatin 80 Mg (Ptom) 80 mg PO BEDTIME [facility] Last Admin: 08/20/20 22:36 Dose: Not Given Documented by: Ondansetron HCl (Zofran) 4 mg IV Q4H PRN PRN Reason: Nausea/Vomiting Primidone (Mysoline) 300 mg PO BID [facility] Last Admin: 08/20/20 20:16 Dose: 300 mg Documented by: Promethazine HCl/Codeine (Phenergan With Codeine) 5 ml PO Q4HR PRN PRN Reason: Cough Last Admin: 08/18/20 20:25 Dose: 5 ml Documented by: Sodium Chloride (Saline Flush) 10 ml FLUSH ASDIRECTED PRN PRN Reason: Keep Vein Open Last Admin: 08/16/20 12:25 Dose: 10 ml Documented by: Spironolactone (Aldactone) 25 mg PO DAILY [facility] Last Admin: 08/20/20 08:41 Dose: 25 mg Documented by: Trolamine Salicylate (Aspercreme 10%) 0 gm TOP Q6H PRN PRN Reason: Pain Last Admin: 08/20/20 20:32 Dose: 1 applic Documented by: Zinc Sulfate (Zincate) 220 mg PO DAILY [facility] Last Admin: 08/20/20 08:41 Dose: 220 mg Documented by: Discontinued Medications Acetaminophen (Tylenol) 975 mg PO ONETIME ONE Stop: 08/04/20 10:01 Last Admin: 08/04/20 10:52 Dose: 975 mg Documented by: Al Hydroxide/Mg Hydroxide (Mag-Al Plus) 30 ml PO Q4H PRN PRN Reason: Heartburn Stop: 08/07/20 04:13 Last Admin: 08/05/20 04:23 Dose: 30 ml Documented by: Amlodipine Besylate (Norvasc) 5 mg PO BEDTIME [facility] Last Admin: 08/08/20 21:01 Dose: 5 mg Documented by: Amlodipine Besylate (Norvasc) 5 mg PO ONETIME ONE Stop: 08/09/20 17:13 Last Admin: 08/10/20 08:45 Dose: Not Given Documented by: Amlodipine Besylate (Norvasc) 10 mg PO BEDTIME [facility] Amlodipine Besylate (Norvasc) 5 mg PO BEDTIME [facility] Last Admin: 12/06/20 20:18 Dose: 5 mg Documented by: Amlodipine Besylate (Norvasc) 10 mg PO DAILY [facility] Amoxicillin/Clavulanate Potassium (Augmentin 500 Mg\\125 Mg) 1 tab PO Q12HR [facility] Last Admin: 08/17/20 21:22 Dose: 1 tab Documented by: Chlorthalidone (Chlorthalidone) 12.5 mg PO DAILY [facility] Last Admin: 08/07/20 16:41 Dose: Not Given Documented by: Dexamethasone (Dexamethasone) 6 mg PO Q24H [facility] Stop: 08/13/20 16:01 Last Admin: 08/13/20 16:02 Dose: 6 mg Documented by: Diltiazem HCl (Cardizem) 10 mg IVPUSH ONETIME ONE Stop: 08/05/20 03:24 Last Admin: 08/05/20 03:34 Dose: 10 mg Documented by: Diltiazem HCl (Cardizem) 10 mg IVPUSH ONETIME ONE Stop: 08/05/20 04:05 Last Admin: 08/05/20 04:11 Dose: 10 mg Documented by: Enoxaparin Sodium (Lovenox) 30 mg SUBCUT Q12H [facility] Last Admin: 08/04/20 16:56 Dose: 30 mg Documented by: Enoxaparin Sodium (Lovenox) 30 mg SUBCUT Q12H [facility] Last Admin: 08/05/20 17:33 Dose: 30 mg Documented by: Famotidine (Pepcid) 20 mg IVPUSH ONETIME ONE Stop: 08/05/20 09:01 Last Admin: 08/05/20 09:43 Dose: Not Given Documented by: Furosemide (Lasix) 40 mg IVPUSH NOW [facility] Stop: 08/04/20 17:00 Furosemide (Lasix) 20 mg IVPUSH ONETIME ONE Stop: 08/04/20 22:01 Last Admin: 08/04/20 22:43 Dose: 20 mg Documented by: Furosemide (Lasix) 40 mg IVPUSH NOW ONE Stop: 08/06/20 14:16 Last Admin: 08/06/20 14:29 Dose: 40 mg Documented by: Dextrose/Sodium Chloride (Dextrose 5%-Normal Saline) 1,000 mls @ 150 mls/hr IV ASDIRECTED [facility] Last Admin: 08/04/20 10:51 Dose: 150 mls/hr Documented by: Remdesivir 200 mg/ Sodium (Chloride) 250 mls @ 250 mls/hr IV ONETIME ONE Stop: 08/04/20 14:33 Last Admin: 08/04/20 16:54 Dose: 250 mls/hr Documented by: Remdesivir 100 mg/ Sodium (Chloride) 100 mls @ 100 mls/hr IV Q24H [facility] Stop: 08/08/20 16:59 Last Admin: 08/08/20 15:31 Dose: 100 mls/hr Documented by: Azithromycin 500 mg/ Sodium (Chloride) 250 mls @ 250 mls/hr IV Q24H [facility] Stop: 08/06/20 17:59 Last Admin: 08/06/20 16:58 Dose: 250 mls/hr Documented by: Ceftriaxone Sodium 2 gm/ (Sodium Chloride) 100 mls @ 200 mls/hr IV Q24H [facility] Stop: 08/08/20 18:29 Last Admin: 08/08/20 17:36 Dose: 200 mls/hr Documented by: Sodium Chloride (Normal Saline) Confirm Administered Dose 250 mls @ as directed .ROUTE .STK-MED ONE Stop: 08/04/20 20:59 Last Admin: 08/04/20 21:14 Dose: 50 mls/hr Documented by: Diltiazem HCl 100 mg/ Sodium (Chloride) 100 mls @ 5 mls/hr IV TITRATE [facility]; Protocol Last Titration: 08/05/20 08:00 Dose: 0 mg/hr, 0 mls/hr Documented by: Potassium Chloride 10 meq/ (Premix) 100 mls @ 100 mls/hr IV Q1H [facility] Stop: 08/05/20 12:59 Last Admin: 08/05/20 12:51 Dose: 100 mls/hr Documented by: Piperacillin Sod/Tazobactam (Sod 4.5 gm/ Sodium Chloride) 100 mls @ 200 mls/hr IV ONETIME ONE Stop: 08/16/20 10:15 Last Admin: 08/16/20 11:05 Dose: 200 mls/hr Documented by: Sodium Chloride (Normal Saline) 500 mls @ 999 mls/hr IV .BOLUS ONE Stop: 08/16/20 10:47 Last Admin: 08/16/20 11:04 Dose: 999 mls/hr Documented by: Sodium Chloride (Normal Saline) 100 mls @ 75 mls/hr IV ASDIRECTED [facility] Iopamidol (Isovue-370 (76%)) 100 ml IVPUSH ONETIME ONE Stop: 08/16/20 12:03 Last Admin: 08/16/20 12:25 Dose: 100 ml Documented by: Lidocaine (Aspercreme 4%) 1 each TOP DAILY [facility] Last Admin: 08/18/20 10:54 Dose: 1 each Documented by: Magnesium Hydroxide (Milk Of Magnesia) 30 ml PO ONETIME ONE Stop: 08/13/20 09:48 Last Admin: 08/13/20 09:56 Dose: 30 ml Documented by: Magnesium Hydroxide (Milk Of Magnesia) 30 ml PO ONETIME ONE Stop: 08/18/20 08:57 Last Admin: 08/18/20 09:23 Dose: 30 ml Documented by: Metoprolol Tartrate (Lopressor) 2.5 mg IVPUSH ONETIME ONE Stop: 08/05/20 07:47 Last Admin: 08/05/20 07:56 Dose: 2.5 mg Documented by: Metoprolol Tartrate (Lopressor) 50 mg PO BIDMEALS [facility] Last Admin: 08/06/20 08:24 Dose: 50 mg Documented by: Metoprolol Tartrate (Lopressor) 2.5 mg IVPUSH ONETIME ONE Stop: 08/05/20 08:13 Last Admin: 08/05/20 17:45 Dose: 2.5 mg Documented by: Metoprolol Tartrate (Lopressor) 75 mg PO BIDMEALS [facility] Last Admin: 08/11/20 17:36 Dose: 75 mg Documented by: Metoprolol Tartrate (Lopressor) 25 mg PO ONETIME ONE Stop: 08/06/20 09:31 Last Admin: 08/06/20 09:31 Dose: 25 mg Documented by: Non-Formulary Medication (Docusate Sodium [Colace]) 150 mg PO DAILY [facility] Potassium Chloride (Klor-Con M20) 40 meq PO ONETIME ONE Stop: 08/06/20 11:01 Last Admin: 08/06/20 11:58 Dose: 40 meq Documented by: Potassium Chloride (Klor-Con M20) 40 meq PO BID [facility] Stop: 08/18/20 09:01 Last Admin: 08/17/20 20:26 Dose: 40 meq Documented by: Trolamine Salicylate (Aspercreme 10%) 0 gm TOP Q1H PRN PRN Reason: Pain - Exam Quality Assessment: DVT Prophylaxis. No: Supplemental Oxygen General: Alert, Oriented, Cooperative, No Acute Distress HEENT: Pupils Equal, Pupils Reactive, Mucous Membr. Moist/[place] Neck: Supple, Trachea Midline Lungs: Normal Respiratory Effort, Decreased Breath Sounds GI/Abdominal Exam: Normal Bowel Sounds, Soft, Non-Tender, No Distention (Female) Exam: Deferred Back Exam: Normal Inspection, Full Range of Motion Extremities: Normal Inspection, Normal Range of Motion, Non-Tender, No Pedal Edema, Normal Capillary Refill Skin: Warm, Dry, Intact Neurological: No New Focal Deficit Psy/Mental Status: Alert, Normal Affect, Normal Mood Sepsis Event Note - Evaluation Sepsis Screening Result: No Definite Risk - Focused Exam Vital Signs: Vital Signs Temp Temp Pulse Resp BP Pulse Ox Pulse Ox 08/21/20 03:18 98.8 F 69 18 127/91 H 93 L 08/20/20 23:51 25 H 08/20/20 23:00 24 H 08/20/20 22:41 24 H 08/20/20 21:00 99.2 F 08/20/20 20:28 95 08/20/20 20:16 146/92 H 08/20/20 20:14 99.1 F 71 17 146/92 H 95 08/20/20 20:11 71 146/92 H - Problem List & Annotations (1) Acute hypoxemic respiratory failure SNOMED Code(s): 757154892 Code(s): J96.01 - ACUTE RESPIRATORY FAILURE WITH HYPOXIA Status: Resolved Priority: High Current Visit: Yes (2) Atrial fibrillation with rapid ventricular response SNOMED Code(s): 592574554191655 Code(s): I48.91 - UNSPECIFIED ATRIAL FIBRILLATION Status: Resolved Priority: High Current Visit: Yes (3) COVID-19 determined by clinical diagnostic criteria SNOMED Code(s): 971032916, 381387692 Code(s): U07.1 - COVID-19 Status: Acute Priority: High Current Visit: Yes (4) Congestive heart failure (CHF) SNOMED Code(s): 48716371 Code(s): I50.9 - HEART FAILURE, UNSPECIFIED Status: Acute Priority: High Current Visit: Yes Qualifiers: Heart failure type: unspecified Heart failure chronicity: unspecified Qualified Code(s): I50.9 - Heart failure, unspecified (5) Hyponatremia SNOMED Code(s): 42165355 Code(s): E87.1 - HYPO-OSMOLALITY AND HYPONATREMIA Status: Acute Priority: High Current Visit: Yes (6) Hypoxia SNOMED Code(s): 105772201 Code(s): R09.02 - HYPOXEMIA Status: Resolved Priority: High Current Visit: Yes (7) Leukocytosis, unspecified SNOMED Code(s): 354979681, 067637981 Code(s): D72.829 - ELEVATED WHITE BLOOD CELL COUNT, UNSPECIFIED Status: Resolved Priority: High Current Visit: Yes Qualifiers: Leukocytosis type: monocytosis Qualified Code(s): D72.821 - Monocytosis (symptomatic) (8) New onset atrial fibrillation SNOMED Code(s): 88381907 Code(s): I48.91 - UNSPECIFIED ATRIAL FIBRILLATION Status: Acute Priority: High Current Visit: Yes (9) Pneumonia due to 2019 novel coronavirus SNOMED Code(s): 832024117102499368 Code(s): U07.1 - COVID-19; J12.89 - OTHER VIRAL PNEUMONIA Status: Acute Priority: High Current Visit: Yes (10) Essential tremor SNOMED Code(s): 485958841 Code(s): G25.0 - ESSENTIAL TREMOR Status: Chronic Priority: Medium Current Visit: Yes (11) CAD (coronary artery disease) SNOMED Code(s): 57825865 Code(s): I25.10 - ATHSCL HEART DISEASE OF [place] CORONARY ARTERY W/O ANG PCTRS Status: Chronic Priority: Low Current Visit: No Qualifiers: Coronary Disease-Associated Artery/Lesion type: unspecified vessel or lesion type [place] vs. transplanted heart: unspecified whether [place] or transplanted heart Associated angina: with unspecified angina Qualified Code(s): I25.119 - Atherosclerotic heart disease of [place] coronary artery with unspecified angina pectoris (12) GERD (gastroesophageal reflux disease) SNOMED Code(s): 797815852 Code(s): K21.9 - GASTRO-ESOPHAGEAL REFLUX DISEASE WITHOUT ESOPHAGITIS Status: Chronic Priority: Low Current Visit: No Qualifiers: Esophagitis presence: esophagitis presence not specified Qualified Code(s): K21.9 - Gastro-esophageal reflux disease without esophagitis (13) HTN (hypertension) SNOMED Code(s): 44216580 Code(s): I10 - ESSENTIAL (PRIMARY) HYPERTENSION Status: Chronic Priority: Low Current Visit: No Qualifiers: Hypertension type: essential hypertension Qualified Code(s): I10 - Essential (primary) hypertension (14) Osteoarthritis SNOMED Code(s): 092439138 Code(s): M19.90 - UNSPECIFIED OSTEOARTHRITIS, UNSPECIFIED SITE Status: Chronic Priority: Low Current Visit: No Qualifiers: Osteoarthritis location: unspecified site Osteoarthritis type: unspecified Qualified Code(s): M19.90 - Unspecified osteoarthritis, unspecified site (15) Elevated d-dimer SNOMED Code(s): 472720772 Code(s): R79.89 - OTHER SPECIFIED ABNORMAL FINDINGS OF BLOOD CHEMISTRY Status: Acute Priority: High Current Visit: Yes (16) Pneumonia SNOMED Code(s): 655793001 Code(s): J18.9 - PNEUMONIA, UNSPECIFIED ORGANISM Status: Acute Priority: High Current Visit: Yes Qualifiers: Pneumonia type: due to unspecified organism Laterality: left Lung location: lower lobe of lung Qualified Code(s): J18.9 - Pneumonia, unspecified organism - Problem List Review Problem List Initiated/Reviewed/Updated: Yes - My Orders Last 24 Hours: My Active Orders 08/21/20 04:35 CBC WITH AUTO DIFF [HEME] AM - Assessment Assessment:: 08/04/20 * 85-year-old female with gradual onset weakness, cough, decreased appetite, fever chills and diaphoresis that started about a week ago. Has been exposed to COVID-19 about 2 weeks ago at a . * Presented to the emergency department and was hypoxemic at 86% on room air. * Initial vital signs in the emergency department reveal a temp of 37.3 Celsius, pulse 84, respiratory rate 20, pressure 170/68, pulse ox 91% on 2 L of oxygen per nasal cannula * Labs in the ED revealed WBC 14.19, sodium 126, potassium 4.1, BUN 8, creatinine 0.6, GFR greater than 60, lactic acid 1.4, LDH 221, troponin I 0.019, C-reactive protein 18.7, D-dimer 1.03, ferritin 142, proBNP 2163, she is Covid positive, urinalysis is unremarkable for infection. Sets of blood cultures were also collected in the emergency department. * Portable chest x-ray reveals a mild increase in interstitial lung markings bi laterally. There is a nodule airspace opacity within the right midlung zone. Findings suggest a pneumonic infiltrate. Consider atypical viral etiology. Pleural spaces otherwise unremarkable with no pleural effusion or pneumothorax. Heart size is mildly prominent. 08/05/2020 * New onset atrial fibrillation with RVR overnight. Stabilized with IV metoprolol and oral metoprolol. * Patient did have some chest pain with the chest pain and her troponin increased slightly to 0.06 * Patient's chest pain when I examined was mostly in her abdomen. This did resolve with resolution of her A. fib RVR. * Patient continues to have hyponatremia 129, white count is elevated at 15.1 likely secondary to inflammation, hypokalemia with potassium of 3.2 and worsening of her proBNP at 3894. * Procalcitonin is less than 0.05. This makes it unlikely that her white count is secondary to significant bacterial infection. PLAN: Pneumonia due to 2019 novel coronavirus, Acute hypoxemic respiratory failure * Convalescent plasma 2 units today. I spoke with the patient to provide information about convalescent plasma for herself. I offered her the fax sheet for patients and caregivers for COVID-19 convalescent plasma to read and review. I stated the therapy has been approved by an emergency youth authorization process and has not fully been FDA reviewed or approved. I shared potential risks from the therapy including transmission of blood-borne pathogen such as HIV and hepatitis C, allergic and transfusion related reactions, post transfusion purpura. Additionally theoretical risks including a phenomenon called antibodydependent enhancement of infection such as seen in dengue or attenuation of an immune response that may make patients more susceptible to reinfection. I discussed there are other potential treatment options that are currently not FDA approved to treat COVID-19. Offered opportunity to ask questions and all questions were answered. The patient voiced understanding and agreed to proceed with treatment for herself. * Remdesivir 200 mg IV x1 dose then 100 mg daily x4 more doses. * Dexamethasone 6 mg p.o. daily x10 days * Rocephin 2 g daily x5 days * Zithromax 500 mg IV daily x3 days * Incentive spirometer and flutter valve every hour while awake 08/06/20 New onset A. fib with RVR * Rate is still not controlled on current dose of metoprolol. Increase metoprolol to 75 mg by mouth twice daily. * Anticoagulate secondary to A. fib with Eliquis HTN (hypertension) * Vital signs every 4 hours * Readjust antihypertensives based on blood pressure and adjustment of metoprolol Hyponatremia * Restart Lasix in the morning 20 mg daily as needed * 1500 mL fluid restriction every 24 hours * Monitor intake and output every 8 hours Congestive heart failure (CHF) * Furosemide 40mg IV x 1 dose today. * Follow-up chest x-rays as needed * Echocardiogram pending [facility] for stroke and DVT prophylaxis Patient is a DNR/DNI PT OT to eval and treat Dietitian consult regarding patient's caloric needs vp client services and case management for discharge planning Respiratory therapy to titrate oxygen to keep O2 saturations between 88 and 94% Change patient to MedSurg status with telemetry and continuous pulse oximetry. Discontinue Adkins catheter, but maintain strict VIJAYA and daily weight Patient will be here greater than 96 hours due to the standard 5-day treatment course for Covid 08/07/20 New onset A. fib with RVR * Rate is well controlled on metoprolol * Anticoagulate secondary to A. fib with Eliquis HTN (hypertension) * Vital signs every 4 hours * Readjust antihypertensives based on blood pressure and adjustment of metoprolol * Start chlorthalidone 12.5 mg daily Hyponatremia * Restart Lasix in the morning 20 mg daily as needed * 1500 mL fluid restriction every 24 hours * Monitor intake and output every 8 hours * Sodium 129 today. Upon further investigation and patient's previous hospital visits, this is a chronic issue. Will have patient's primary physician follow-up regarding this as patient is asymptomatic. Congestive heart failure (CHF) * Follow-up chest x-rays as needed * Lasix 20 mg daily as needed 08/08/2020 New onset A. fib with RVRstable * Rate is well controlled on metoprolol * Anticoagulate secondary to A. fib with Eliquis HTN (hypertension) * Vital signs every 4 hours * Readjust antihypertensives based on blood pressure and adjustment of metoprolol * Chlorthalidone was held secondary to hyponatremia * Norvasc restarted at a lower dose of 5 mg daily Hyponatremia * Lasix in the morning 20 mg daily as needed * 1500 mL fluid restriction every 24 hours * Monitor intake and output every 8 hours * Sodium 131 today. Upon further investigation and patient's previous hospital visits, this is a chronic issue. Will have patient's primary physician follow-up regarding this as patient is asymptomatic. Congestive heart failure (CHF) * Follow-up chest x-rays as needed * Lasix 20 mg daily as needed 08/09/2020 New onset A. fib with RVRstable * Rate is well controlled on metoprolol * Anticoagulate secondary to A. fib with Eliquis HTN (hypertension) * Vital signs every 4 hours * Readjust antihypertensives based on blood pressure and adjustment of metoprolol * Chlorthalidone was held secondary to hyponatremia * Norvasc restarted at a lower dose of 5 mg at bedtime Hyponatremia * Lasix in the morning 20 mg daily as needed * 1500 mL fluid restriction every 24 hours * Monitor intake and output every 8 hours * Sodium 133improvedtoday. Upon further investigation and patient's previous hospital visits, this is a chronic issue. Will have patient's primary physician follow-up regarding this as patient is asymptomatic. Congestive heart failure (CHF) * Follow-up chest x-rays as needed * Lasix 20 mg daily as needed 08/10/2020 New onset A. fib with RVRstable * Rate is well controlled on metoprolol * Anticoagulate secondary to A. fib with Eliquis HTN (hypertension) * Vital signs every 4 hours * Readjust antihypertensives based on blood pressure and adjustment of metoprolol * Chlorthalidone was held secondary to hyponatremia * Norvasc restarted at a lower dose of 5 mg at bedtime * Blood pressure is adequately treated Hyponatremia * Lasix 20 mg daily as needed * Increase fluid restriction to 2000 mL * Monitor intake and output every 8 hours * Recheck labs in the morning. Congestive heart failure (CHF) * Follow-up chest x-rays as needed * Lasix 20 mg daily as needed * Continue metoprolol Eliquis for stroke and DVT prophylaxis Patient is a DNR/DNI PT OT to eval and treat vp client services and case management for discharge planning patient has agreed to go to [facility] upon discharge. Respiratory therapy to titrate oxygen to keep O2 saturations between 88 and 94% Patient will be here greater than 96 hours due to the standard 5-day treatment course for Covid 08/11/2020 New onset A. fib with RVRstable * Rate is well controlled on metoprolol * Anticoagulate secondary to A. fib with Eliquis HTN (hypertension) * Vital signs every 4 hours * Readjust antihypertensives based on blood pressure and adjustment of metoprolol * Norvasc raised to 10 mg daily. This is her home dose. * Blood pressure is adequately treated Hyponatremia * Lasix 20 mg daily as needed * Increase fluid restriction to 2000 mL * Monitor intake and output every 8 hours Congestive heart failure (CHF) * Follow-up chest x-rays as needed * Lasix 20 mg daily as needed * Continue metoprolol Eliquis for stroke and DVT prophylaxis Patient is a DNR/DNI PT OT to eval and treat vp client services and case management for discharge planning patient has agreed to go to [facility] upon discharge. Awaiting acceptance to assisted. Respiratory therapy to titrate oxygen to keep O2 saturations between 88 and 94% Patient will be here greater than 96 hours due to the standard 5-day treatment course for Covid 08/12/2020 Continue steroid therapy Routine AM Labs Encourage to ambulate inside her room as much as she can IS and FV as directed Fluid restriction to 1500 ml daily Chest x-ray in AM Gas Operations Analyst following PT/OT to assess and treat She is being evaluated by [facility] [place] LOS> 96hrs and pending placement due to new rules/protocol for covid-patient assisted placement 08/13/2020 Continue steroid therapy Routine AM Labs Encourage to ambulate inside her room as much as she can IS and FV as directed Continue Fluid restriction to 1500 ml daily Gas Operations Analyst following PT/OT to assess and treat Discharge to [facility] this Tuesday per 08/14/2020 Completed 10 day course of Dexamethasone Routine AM Labs Encourage to ambulate inside her room as much as she can IS and FV as directed Continue Fluid restriction to 1500 ml daily Gas Operations Analyst following PT/OT to assess and treat Discharge to [facility] tuesday @ 1300 per 08/15/2020 Completed COVID-19 treatment Reports she "feels horrible today" - SOB, general myalgias, cough Reports coughing fit last night Continue IS/Acapella Continue fluid restriction Continue PT/OT CXR ordered WBC increased to 24.15 Recheck labs in AM Procalcitonin ordered Monitor need for oxygen Will hold off discharge today to investigate increasing leukocytosis (steroid vs secondary infection) Plan for discharge Tuesday08/18/20 08/16/2020 Patient reports she feels better today and that "it may have been the weather" WBC again elevated at 34.33 CRP elevated at 30.4 D-dimer 2.64 CTA obtained and shows atelectasis vs PNA in left lung base Procalcitonin obtained from 08/15/20 and was negative Discussed with Dr. Tucker - will start zosyn with concerns of secondary infection Patient had completed 5 day course of rocephin on 08/08/2020 and 3 day course of azithromycin Will monitor daily labs Requiring 1L oxygen today Continue IS/Acapella RT continuing to work with patient Continue fluid restriction 08/17/2020 Patient reports being very weak today - discussed lack of motivation and deconditioning WBC improved to 30.33 CRP stable at 30.6 D-dimer down to 0.[address] Tucker - will stop zosyn and start PO augmentin Requiring 1L oxygen today Encourage improved PO intake Continue IS/acapella Planning on discharge tomorrow - 08/18/2020 to SNF 08/18/2020 Patient reports feeling weak. Unable to feed herself breakfast. Nursing staff reports that patient layed in bed all weekend. She is requesting to work with PT to get her strength back. WBC improved to 13.28 CRP up to 32.4 Procalcitonin ordered. Will continue the patient on Zosyn until results are back. Requiring 1L oxygen today Encourage improved PO intake Continue IS/acapella Planning on discharge tomorrow - 08/19/2020 to SNF Will not recheck labs tomorrow as this is likely contributing to the patient's anemia. 08/19/2020 Patient continues to feel weak but was up working with PT/OT WBC WNL at 7.51 CRP down to 20.0 Procalcitonin 0.67 Off of oxygen now Continues to use IS/Acapella Discussed plan of care with Dr. Calvillo - will continue IV Abx (Zosyn) and treat for possible healthcare acquired PNA Will remain hospitalized until completed 7 days Zosyn 08/20/2020 Continues to work with PT/OT Labs not obtained today Remains off of oxygen Repeat labs tomorrow Continues to use acapella and IS Continue Zosyn for full 7 days Planning discharge Tuesday as patients last dose of Zosyn is night. Reports she feels better today and has been working with therapies. 08/21/2020 Continues to work with PT and OT WBC remains WNL at 7. 63 Sodium improved to 134 Potassium down to 4.4 Continuing IV Zosyn for HAP vs. Aspiration PNA Day 6/7 of Zosyn Hopeful for discharge tomorrow pending continued improvement and completion of IV ABX Accepted at [facility] for 1300 tomorrow. Continues to feel good. Has been ambulating more. - Plan Plan:: Acute: Covid-19 Infection Viral Pneumonitis/Atypical Pneumonia Elevated d-dimer Ascites vs. healthcare acquired PNA vs. aspiration PNA Leukocytosis, POA -Completed 2 units of convalescent plasma -Completed 5 day course of Veklury -Completed 5 days of Rocephin and 3 days of Azithromycin -10 day course of Dexamethasone competed -Continue IS and FV as directed -She is off of oxygen today -Chest xray today shows persisting atelectasis with the left base with linear scar within the left upper lung. Nothing acute is otherwise definitely appreciated. -WBC decreased 13.20 --> 24.15-->34.33-->30.33-->13.28-->7.51-->7.63 -UA collected was unremarkable for infection New onset A. fib with RVRresolved -Rate is well controlled on metoprolol tartrate 75 mg po BID -Anticoagulate secondary to A. fib with Eliquis -HR is well controlled: 60s-70s HTN -Vital signs every 4 hours -BP Meds: Metoprolol tartrate 75 mg po BID, Aldactone 25 mg po daily, Losartan 50 mg po BID, Norvasc 10 mg po daily, and PRN Lasix 20 mg po daily -Blood pressure is adequately controlled Hypo-osmolar hyponatremia, stable -She is not symptomatic -Na now at 133 -On Lasix 20 mg daily as needed -Continue fluid restriction to 1500 ml daily -Continue to monitor intake and output every 8 hours Congestive heart failure (CHF) with Preserved EF -Has likely pulmonary HTN -2D echo shows normal EF 60-65%. No RWMA. Moderate calcification and thickening of mitral leaflets. Moderate-Severe RVSP at 62.7 mmHg -Continue Lasix and Aldactone -1.8 L for fluid restriction and AHA diet Mild Hypochloremia with Cl, 96, POA, resolved Hyperglycemia, POA, resolved -Likely due to steroid and now off steroids -Carries no hx/o diabetes or glucose intolerance -We will monitor Hypoalbuminemia, POA -Albumin of 2.8; now 2.0 -Gas Operations Analyst following -Nursing reporting minimal intake Macrocytic Normochromic Anemia with Hgb of 9.2, Stable -occult stool negative Chronic: Impaired Vision and Hearing HTN HLD Hx/o [place] CAD S/p stents placement Asthma HIWOT Chronic Constipation Recurrent UTI OA Hx/o esophageal cancer Hx/o Splenectomy Anxiety ET
[2020-08-21] MEDS: Cholecalciferol (Vitamin D3) 25 MCG Tab PO SCH (09:44)
[2020-08-21] MEDS: Primidone 50 MG Tab PO SCH ×2 (09:44→20:27)
[2020-08-21] MEDS: Metoprolol Tartrate 25 MG Tab PO SCH ×2 (09:45→21:51)
[2020-08-21] MEDS: Aspirin 81 MG Tab.EC PO SCH (09:47)
[2020-08-21] MEDS: guaiFENesin 600 MG Tab.ER PO SCH ×3 (09:47→20:27)
[2020-08-21] MEDS: Zinc Sulfate 220 MG Cap PO SCH (09:47)
[2020-08-21] MEDS: Spironolactone 25 MG Tab PO SCH (09:47)
[2020-08-21] MEDS: Losartan 25 MG Tab PO SCH ×2 (09:47→20:26)
[2020-08-21] MEDS: Apixaban 5 MG Tab PO SCH ×2 (09:47→20:26)
[2020-08-21] MEDS: Ezetimibe 10 MG Tab PO SCH (09:48)
[2020-08-21] MEDS: Fluticasone Propionate Nasal Spray 16 GM Bottle NAS SCH ×2 (09:51→20:29)
[2020-08-21] MEDS: Docusate Sodium 100 MG Cap PO PRN (20:24)
[2020-08-21] MEDS: amLODIPine 10 MG Tab PO SCH (20:25)
[2020-08-21] MEDS: Gabapentin 300 MG Cap PO SCH (20:26)
[2020-08-21] MEDS: Trolamine Salicylate/Aloe Vera 10% Crm 85 GM Tube TOP PRN (20:28)
[2020-08-21] MEDS: Acetaminophen 325 MG Tab PO PRN (21:52)
[2020-08-21] MEDS: ALPRAZolam 0.25 MG Tab PO PRN (21:56)
[2020-08-21] MEDS: LOVASTATIN 80 MG PO SCH (22:35)
[2020-08-22] MEDS: Piperacillin/Tazobactam 4.5 GM in Sodium Chloride 0.9% 100 ML IV SCH ×2 (02:47→10:58)
--- NOTE | 2020-08-22 08:09 | PCM.DCSUM1 ---
Discharge Summary - Hospital Course HPI Initial Comments: 85-year-old female presents to the ED per [facility]. Patient is believed to be COVID-19 positive. She was tested at the clinic last week but the results are not yet available. She has been gradually getting weaker over the last several days. So weak this morning she could not get out of her bed on her own volition. Identified to be hypoxemic upon arrival to the ED with O2 sats of 86% on room air. Improved to 100% on 2 L. Proximal as well minimally productive cough. Mild nasal congestion. Decreased appetite mild diarrhea. Retention of sense of taste and smell. Intermittent fever chills and diaphoresis. Generalized myalgia. History suggest she went to a of one of her family members about 2 weeks ago and apparently multiple people at that were COVID-19 positive unknown to her. Diagnosis: Stroke: No - Discharge Data Discharge Date: 08/22/20 (Admit date: 08/04/2020) Discharge Disposition: DC/Tfer to SNF 03 Condition: Good - Referral to Home Health Primary Care Physician: Gabi Anthony SCAFFOLD SETTER - Discharge Diagnosis/Problem(s) (1) Acute hypoxemic respiratory failure SNOMED Code(s): 910161908 ICD Code: J96.01 - ACUTE RESPIRATORY FAILURE WITH HYPOXIA Status: Resolved Priority: High Current Visit: Yes (2) Atrial fibrillation with rapid ventricular response SNOMED Code(s): 061332305011887 ICD Code: I48.91 - UNSPECIFIED ATRIAL FIBRILLATION Status: Resolved Priority: High Current Visit: Yes (3) COVID-19 determined by clinical diagnostic criteria SNOMED Code(s): 855167183, 628455534 ICD Code: U07.1 - COVID-19 Status: Acute Priority: High Current Visit: Yes (4) Congestive heart failure (CHF) SNOMED Code(s): 54480913 ICD Code: I50.9 - HEART FAILURE, UNSPECIFIED Status: Acute Priority: High Current Visit: Yes Qualifiers: Heart failure type: unspecified Heart failure chronicity: unspecified Qualified Code(s): I50.9 - Heart failure, unspecified (5) Hyponatremia SNOMED Code(s): 19396914 ICD Code: E87.1 - HYPO-OSMOLALITY AND HYPONATREMIA Status: Acute Priority: High Current Visit: Yes (6) Hypoxia SNOMED Code(s): 986339422 ICD Code: R09.02 - HYPOXEMIA Status: Resolved Priority: High Current Visit: Yes (7) Leukocytosis, unspecified SNOMED Code(s): 080491577, 573024837 ICD Code: D72.829 - ELEVATED WHITE BLOOD CELL COUNT, UNSPECIFIED Status: Resolved Priority: High Current Visit: Yes Qualifiers: Leukocytosis type: monocytosis Qualified Code(s): D72.821 - Monocytosis (symptomatic) (8) New onset atrial fibrillation SNOMED Code(s): 57259692 ICD Code: I48.91 - UNSPECIFIED ATRIAL FIBRILLATION Status: Acute Priority: High Current Visit: Yes (9) Pneumonia due to 2019 novel coronavirus SNOMED Code(s): 486460148972291456 ICD Code: U07.1 - COVID-19; J12.89 - OTHER VIRAL PNEUMONIA Status: Acute Priority: High Current Visit: Yes (10) Essential tremor SNOMED Code(s): 918367720 ICD Code: G25.0 - ESSENTIAL TREMOR Status: Chronic Priority: Medium Current Visit: Yes (11) CAD (coronary artery disease) SNOMED Code(s): 84384591 ICD Code: I25.10 - ATHSCL HEART DISEASE OF [place] CORONARY ARTERY W/O ANG PCTRS Status: Chronic Priority: Low Current Visit: No Qualifiers: Coronary Disease-Associated Artery/Lesion type: unspecified vessel or lesion type [place] vs. transplanted heart: unspecified whether [place] or transplanted heart Associated angina: with unspecified angina Qualified Code(s): I25.119 - Atherosclerotic heart disease of [place] coronary artery with unspecified angina pectoris (12) GERD (gastroesophageal reflux disease) SNOMED Code(s): 815561990 ICD Code: K21.9 - GASTRO-ESOPHAGEAL REFLUX DISEASE WITHOUT ESOPHAGITIS Status: Chronic Priority: Low Current Visit: No Qualifiers: Esophagitis presence: esophagitis presence not specified Qualified Code(s): K21.9 - Gastro-esophageal reflux disease without esophagitis (13) HTN (hypertension) SNOMED Code(s): 10979540 ICD Code: I10 - ESSENTIAL (PRIMARY) HYPERTENSION Status: Chronic Priority: Low Current Visit: No Qualifiers: Hypertension type: essential hypertension Qualified Code(s): I10 - Essential (primary) hypertension (14) Osteoarthritis SNOMED Code(s): 537310121 ICD Code: M19.90 - UNSPECIFIED OSTEOARTHRITIS, UNSPECIFIED SITE Status: Chronic Priority: Low Current Visit: No Qualifiers: Osteoarthritis location: unspecified site Osteoarthritis type: unspecified Qualified Code(s): M19.90 - Unspecified osteoarthritis, unspecified site (15) Elevated d-dimer SNOMED Code(s): 034870322 ICD Code: R79.89 - OTHER SPECIFIED ABNORMAL FINDINGS OF BLOOD CHEMISTRY Status: Acute Priority: High Current Visit: Yes (16) Pneumonia SNOMED Code(s): 352108314 ICD Code: J18.9 - PNEUMONIA, UNSPECIFIED ORGANISM Status: Acute Priority: High Current Visit: Yes Qualifiers: Pneumonia type: due to unspecified organism Laterality: left Lung location: lower lobe of lung Qualified Code(s): J18.9 - Pneumonia, unspecified organism - Patient Summary/Data Consults: Consultations 08/04/20 14:21 Consult to Case Management/Branding Specialist [CONS] Routine Consult to Ward Service Supervisor [CONS] Routine Consult to Spiritual Care [CONS] Routine OT Evaluation and Treatment [CONS] Routine Respiratory Care Assess and Treatment [CONS] Routine 08/05/20 16:33 PT Evaluation and Treatment [CONS] Routine Labs Pending at D/C: None Recommended Follow-up Testing/Procedures: Follow-up with primary care provider within 7-10 days of discharge, sooner if needed. -Recommend re-check CBC, CMP, Magnesium at that appointment. -Consider repeat CXR at visit. Hospital Course: Delores had a rather complicated admission. She was originally admitted for COVID- 19 treatment after testing positive in our ED. She had a known exposure out in the community and developed cough, weakness, decreased appetite, fever, chills, and diaphoresis. She was started on 5 days of IV remdesivier, 10 days of 6mg dexamethasone, 5 days of Rocephin 2gm, and 3 days of 500mg azithromycin. She was advised to prone whenever possible and utilize IS and acapella. Procalcitonin was obtained and was negative. The day after admission she developed new onset A-fib with RVR. This was converted utilizing IV metoprolol. Her HR responded to 75mg of BID metoprolol. She was also started on Eliquis 5mg BID. Sodium was 126 on admission and she was placed on 1500mL fluid restriction with improvement to 134 prior to discharge. Chlorthalidone was discontinued due to hyponatremia. Old records indicate this is a chronic issue. Ward Service Supervisor was consulted. Echocardiogram was obtained on 08/05/2020 showin. Left ventricular ejection fraction, by visual estimation, is 60 to 65%. 2. Mild concentric left ventricular hypertrophy. 3. Normal right ventricular systolic function. 4. Mild aortic valve stenosis. 5. Moderate thickening calcification and thickening of mitral leaflets probably in part to rheumatic disease with hockey deformity of anterior mitral leaflet and predominately more leaflet tip thickening (slide 53). Mild mitral stenosis with MG 5 mmHg. Heart rate 75 bpm. 6. Mild tricuspid valve regurgitation. 7. Mild dilation of the ascending aorta. 8. The right ventricular systolic pressure is moderate to severely elevated at 62.7 mmHg. 9. No regional wall motion abnormalities. She responded well to COVID-19 treatment and was awaiting placement when she was noted to have increased cough, SOB and general myalgias. She was also noted to have a mild fever and require 1L of oxygen. Her WBC was noted to increase to 24.15 and CRP was elevated at 30.4. Procalcitonin was negative. D-dimer was elevated at 2.64 and CTA was ordered. This was negative for PE but noted to have area of atelectasis vs. PNA. Given increasing WBC, CTA findings, and patients reports of feeling worse zosyn was started for hospital acquired PNA vs. aspiration PNA. Repeat procalcitonin was 0.67. She was noted to be anemic, likely from frequent blood draws, but a occult stool was sent nonetheless. This was negative. She continued to utilizer her IS and Acapella and did respond well to therapies. She was weaned off of oxygen and did not have anymore fevers. She completed 7 days of IV Zosyn. Her endurance with ambulation improved. She worked with PT/OT who continued to recommend SNF placement. She was ultimately accepted at [facility] today. She completed PNA and COVID-19 treatment while here and was not discharged on anything for this. She was instructed to continue to utilize her IS and acapella until symptoms resolve. She should continue PT/OT at SNF. She was discharged on PRN Aspercreme and Tylenol for pain, BID Eliquis for her new onset A-fib and her metoprolol was increased to 75mg BID for rate control. She as also discharged on 10mg Norvasc at bedtime for BP. Home medications were otherwise continued. She was discharged today. She was instructed to follow-up with PCP within 7-10 days of discharge, sooner if needed. Recommend repeat CBC, CMP, Magnesium and CXR at that visit. Ward Service Supervisor should follow at SNF as she had some difficulty with feeding while here. She was instructed to weigh herself daily and record this in a journal, bringing this journal with to all medical appointments. She was discharged to [facility] today. Dr. Tucker will follow in SNF. - Patient Instructions Diet: Heart Healthy Diet Fluid Restriction: 2000 mL Activity: As Tolerated Driving: Do Not Drive Showering/Bathing: May Shower Notify Provider of: Fever, Increased Pain, Nausea and/or Vomiting Other/Special Instructions: Follow-up with primary care provider within 7-10 days of discharge, sooner if needed. Continue to utilize your incentive spirometer (clear/blue device you inhale through) and your acapella (green tube you blow through) until you feel back to normal. Continue PT/OT at [facility]. Resume home medications as instucted. Take all new medications as directed. You completed treatment for COVID-19 while here. No new medications will be prescribed for this. Should symptoms return or worsen contact your primary care provider or return to the Emergency Department. - Discharge Plan *PRESCRIPTION DRUG MONITORING PROGRAM REVIEWED*: Not Applicable *COPY OF PRESCRIPTION DRUG MONITORING REPORT IN PATIENT PRISCILLA: Not Applicable Prescriptions/Med Rec: Trolamine Salicylate/Aloe Vera [Aspercreme 10%] 0 gm TOP Q6H PRN #1 tube PRN Reason: Pain Apixaban [Eliquis] 5 mg PO BID #40 tablet Metoprolol Tartrate [Lopressor] 75 mg PO BID #120 tablet amLODIPine Besylate [Norvasc] 10 mg PO BEDTIME #20 tablet Acetaminophen [Tylenol] 650 mg PO Q4H PRN #20 tablet PRN Reason: Pain (Mild 1-3)/fever Home Medications: Home Meds Aspirin [Low Dose Aspirin EC] 81 mg PO DAILY 02/27/14 [History] Denosumab [Prolia] 60 mg SQ ASDIRECTED 02/27/14 [History] Ubidecarenone [Coenzyme Q10] 100 mg PO DAILY 02/27/14 [History] Cholecalciferol (Vitamin D3) [Vitamin D3] 1,000 units PO DAILY 10/11/14 [History] Vitamin B Complex [B Complex] 1 tab PO DAILY 03/28/15 [History] Albuterol [Ventolin HFA] 2 puff INH Q4H PRN 11/18/17 [History] Benzonatate [Tessalon Perle] 200 mg PO QID PRN 11/18/17 [History] Gabapentin [Neurontin] 300 mg PO BEDTIME 11/18/17 [History] Nitroglycerin 0.4 mg SL ASDIRECTED PRN 11/18/17 [History] ALPRAZolam [Alprazolam] 0.25 mg PO Q12HR PRN 11/21/17 [History] Lovastatin [Mevacor] 80 mg PO BEDTIME 11/21/17 [History] Spironolactone [Aldactone] 25 mg PO DAILY 11/21/17 [History] Aloe Vera 500 mg PO DAILY 08/04/20 [History] Budesonide/Formoterol Fumarate [Budesonide-Formoterol 80-4.5] 2 puff INH BID 08/04/20 [History] Docusate Sodium [Colace] 150 mg PO DAILY 08/04/20 [History] Ezetimibe [Zetia] 10 mg PO DAILY 08/04/20 [History] Fluticasone Propionate [Flonase] 1 spray LINDA BID 08/04/20 [History] Furosemide [Lasix] 20 mg PO DAILY PRN 08/04/20 [History] Lactobacillus Rhamnosus GG [Culturelle] 1 cap PO DAILY 08/04/20 [History] Lidocaine 5% [Lidoderm 5%] 1 patch TOP DAILY 08/04/20 [History] Losartan [Cozaar] 50 mg PO BID 08/04/20 [History] Meclizine [Antivert] 25 mg PO Q4HR PRN 08/04/20 [History] Polyethylene Glycol/Polyvinyl [Hypotears Eye Drops] 1 drop EYEBOTH DAILY PRN 08/04/20 [History] Primidone [Mysoline] 300 mg PO BID 08/04/20 [History] Zinc 50 mg PO DAILY 08/04/20 [History] valACYclovir [Valtrex] 1,000 mg PO TID 08/04/20 [History] Diclofenac Sodium [Voltaren 1% Gel] 1 applic TOP BID PRN 08/18/20 [History] Acetaminophen [Tylenol] 650 mg PO Q4H PRN #20 tablet 08/22/20 [Rx] Apixaban [Eliquis] 5 mg PO BID #40 tablet 08/22/20 [Rx] Metoprolol Tartrate [Lopressor] 75 mg PO BID #120 tablet 08/22/20 [Rx] Trolamine Salicylate/Aloe Vera [Aspercreme 10%] 0 gm TOP Q6H PRN #1 tube 08/22/20 [Rx] amLODIPine Besylate [Norvasc] 10 mg PO BEDTIME #20 tablet 08/22/20 [Rx] Oxygen Therapy Mode: Room Air Patient Handouts: Heart Failure Action Plan, COVID-19: How to Protect Yourself and Others - CDC, Prevent the Spread of COVID-19 if You Are Sick - CDC, Sepsis, Self Care, Adult Referrals: Roger Funes MD [Physician] - 09/01/20 8:00 am (Please follow up with Luis Enrique Mon NP (who is filling in for Dr. Tucker) on September 01 at 8:00.) - Discharge Summary/Plan Comment DC Time >30 min.: Yes (45 minutes ) - General Info Date of Service: 08/22/20 Admission Dx/Problem (Free Text: Admission Diagnosis/Problem Admission Diagnosis/Problem Weakness Functional Status: Reports: Pain Controlled, Tolerating Diet, Ambulating, Urinating, Incentive Spirometry, Other (Acapella ). Denies: New Symptoms - Review of Systems General: Reports: Weakness (improving ). Denies: Fever, Fatigue, Malaise, Chills HEENT: Reports: No Symptoms. Denies: Headaches, Sore Throat Pulmonary: Reports: No Symptoms. Denies: Shortness of Breath, Cough, Sputum, Wheezing Cardiovascular: Reports: No Symptoms. Denies: Chest Pain, Palpitations, Dyspnea on Exertion, Edema, Lightheadedness Gastrointestinal: Reports: Constipation. Denies: Abdominal Pain, Diarrhea, Nausea, Vomiting Genitourinary: Reports: No Symptoms. Denies: Pain Musculoskeletal: Reports: No Symptoms Skin: Reports: No Symptoms. Denies: Cyanosis Neurological: Reports: Difficulty Walking, Weakness. Denies: Confusion, Dizziness, Headache, Numbness, Seizure, Syncope, Tingling, Gait Disturbance Psychiatric: Reports: No Symptoms - Patient Data Vitals - Most Recent: Last Vital Signs Temp 97.7 F 08/22/20 02:59 Pulse 62 08/22/20 02:59 Resp 18 08/22/20 02:59 BP 141/71 H 08/22/20 02:59 Pulse Ox 92 L 08/22/20 02:59 Weight - Most Recent: 130 lb I&O - Last 24 hours: Intake & Output 08/21/20 08/22/20 08/22/20 22:59 06:59 14:59 Intake Total 1040 440 Output Total 350 2800 Balance 690 -2360 HARMONY Results - Last 24 hrs: Microbiology 08/18/20 11:00 Stool Occult Blood (HARMONY) - Final Stool / Feces Med Orders - Current: Current Medications Acetaminophen (Tylenol) 650 mg PO Q4H PRN PRN Reason: Pain (Mild 1-3)/fever Last Admin: 08/21/20 21:52 Dose: 650 mg Documented by: Albuterol (Proventil Neb Soln) 2.5 mg NEB Q2H PRN PRN Reason: Shortness Of Breath/wheezing Albuterol (Proventil Hfa) 2 gm INH Q4H PRN PRN Reason: SOB/Cough Last Admin: 08/20/20 20:27 Dose: 2 puff Documented by: Alprazolam (Xanax) 0.25 mg PO Q12H PRN PRN Reason: Anxiety Last Admin: 08/21/20 21:56 Dose: 0.25 mg Documented by: Amlodipine Besylate (Norvasc) 10 mg PO BEDTIME [facility] Last Admin: 08/21/20 20:25 Dose: 10 mg Documented by: Apixaban (Eliquis) 5 mg PO BID [facility] Last Admin: 08/21/20 20:26 Dose: 5 mg Documented by: Aspirin (Halfprin) 81 mg PO DAILY [facility] Last Admin: 08/21/20 09:47 Dose: 81 mg Documented by: Benzocaine/Menthol (Cepacol Sore Throat) 1 lozenge MUCMEM ASDIRECTED PRN PRN Reason: Cough Last Admin: 08/19/20 21:07 Dose: 1 lozenge Documented by: Benzonatate (Tessalon Perles) 200 mg PO QID PRN PRN Reason: Cough Last Admin: 08/19/20 21:07 Dose: 200 mg Documented by: Calcium Carbonate/Glycine (Tums) 1,000 mg PO Q2H PRN PRN Reason: Indigestion Last Admin: 08/12/20 10:47 Dose: 1,000 mg Documented by: Cholecalciferol (Vitamin D3) 25 mcg PO DAILY [facility] Last Admin: 08/21/20 09:44 Dose: 25 mcg Documented by: Diclofenac Sodium (Voltaren 1% Gel) 1 gm TOP QID PRN PRN Reason: Pain Docusate Sodium (Colace) 100 mg PO BID PRN PRN Reason: Constipation Last Admin: 08/21/20 20:24 Dose: 100 mg Documented by: Ezetimibe (Zetia) 10 mg PO DAILY [facility] Last Admin: 08/21/20 09:48 Dose: 10 mg Documented by: Fluticasone Propionate (Flonase) 0 gm LINDA BID [facility] Last Admin: 08/21/20 20:29 Dose: 1 spray Documented by: Furosemide (Lasix) 20 mg PO DAILY PRN PRN Reason: Edema Gabapentin (Neurontin) 300 mg PO BEDTIME [facility] Last Admin: 08/21/20 20:26 Dose: 300 mg Documented by: Guaifenesin (Mucinex) 600 mg PO TID [facility] Last Admin: 08/21/20 20:27 Dose: 600 mg Documented by: Guaifenesin/Codeine Phosphate (Robitussin Ac) 5 ml PO Q4H PRN PRN Reason: Cough Last Admin: 08/19/20 21:07 Dose: 5 ml Documented by: Piperacillin Sod/Tazobactam (Sod 4.5 gm/ Sodium Chloride) 100 mls @ 25 mls/hr IV Q8H [facility] Last Admin: 08/22/20 02:47 Dose: 25 mls/hr Documented by: Lidocaine (Aspercreme 4%) 1 each TOP DAILY PRN PRN Reason: Pain Losartan Potassium (Cozaar) 50 mg PO BID [facility] Last Admin: 08/21/20 20:26 Dose: 50 mg Documented by: Magnesium Hydroxide (Milk Of Magnesia) 30 ml PO Q4H PRN PRN Reason: Constipation Last Admin: 08/17/20 20:27 Dose: 30 ml Documented by: Meclizine HCl (Antivert) 25 mg PO Q6H PRN PRN Reason: Dizziness Last Admin: 08/14/20 12:26 Dose: 25 mg Documented by: Metoprolol Tartrate (Lopressor) 75 mg PO BID [facility] Last Admin: 08/21/20 21:51 Dose: 75 mg Documented by: Miscellaneous Information (Remove Patch) 1 ea TRDERM BEDTIME [facility] Last Admin: 08/21/20 22:37 Dose: Not Given Documented by: Nitroglycerin (Nitrostat) 0.4 mg SL ASDIRECTED PRN PRN Reason: Chest Pain Lovastatin 80 Mg (Ptom) 80 mg PO BEDTIME [facility] Last Admin: 08/21/20 22:35 Dose: Not Given Documented by: Ondansetron HCl (Zofran) 4 mg IV Q4H PRN PRN Reason: Nausea/Vomiting Primidone (Mysoline) 300 mg PO BID [facility] Last Admin: 08/21/20 20:27 Dose: 300 mg Documented by: Promethazine HCl/Codeine (Phenergan With Codeine) 5 ml PO Q4HR PRN PRN Reason: Cough Last Admin: 08/18/20 20:25 Dose: 5 ml Documented by: Sodium Chloride (Saline Flush) 10 ml FLUSH ASDIRECTED PRN PRN Reason: Keep Vein Open Last Admin: 08/16/20 12:25 Dose: 10 ml Documented by: Spironolactone (Aldactone) 25 mg PO DAILY [facility] Last Admin: 08/21/20 09:47 Dose: 25 mg Documented by: Trolamine Salicylate (Aspercreme 10%) 0 gm TOP Q6H PRN PRN Reason: Pain Last Admin: 08/21/20 20:28 Dose: 1 applic Documented by: Zinc Sulfate (Zincate) 220 mg PO DAILY [facility] Last Admin: 08/21/20 09:47 Dose: 220 mg Documented by: Discontinued Medications Acetaminophen (Tylenol) 975 mg PO ONETIME ONE Stop: 08/04/20 10:01 Last Admin: 08/04/20 10:52 Dose: 975 mg Documented by: Al Hydroxide/Mg Hydroxide (Mag-Al Plus) 30 ml PO Q4H PRN PRN Reason: Heartburn Stop: 08/07/20 04:13 Last Admin: 08/05/20 04:23 Dose: 30 ml Documented by: Amlodipine Besylate (Norvasc) 5 mg PO BEDTIME [facility] Last Admin: 08/08/20 21:01 Dose: 5 mg Documented by: Amlodipine Besylate (Norvasc) 5 mg PO ONETIME ONE Stop: 08/09/20 17:13 Last Admin: 08/10/20 08:45 Dose: Not Given Documented by: Amlodipine Besylate (Norvasc) 10 mg PO BEDTIME [facility] Amlodipine Besylate (Norvasc) 5 mg PO BEDTIME [facility] Last Admin: 08/10/20 20:18 Dose: 5 mg Documented by: Amlodipine Besylate (Norvasc) 10 mg PO DAILY [facility] Amoxicillin/Clavulanate Potassium (Augmentin 500 Mg\125 Mg) 1 tab PO Q12HR [facility] Last Admin: 08/17/20 21:22 Dose: 1 tab Documented by: Chlorthalidone (Chlorthalidone) 12.5 mg PO DAILY [facility] Last Admin: 08/07/20 16:41 Dose: Not Given Documented by: Dexamethasone (Dexamethasone) 6 mg PO Q24H [facility] Stop: 08/13/20 16:01 Last Admin: 08/13/20 16:02 Dose: 6 mg Documented by: Diltiazem HCl (Cardizem) 10 mg IVPUSH ONETIME ONE Stop: 08/05/20 03:24 Last Admin: 08/05/20 03:34 Dose: 10 mg Documented by: Diltiazem HCl (Cardizem) 10 mg IVPUSH ONETIME ONE Stop: 08/05/20 04:05 Last Admin: 08/05/20 04:11 Dose: 10 mg Documented by: Enoxaparin Sodium (Lovenox) 30 mg SUBCUT Q12H [facility] Last Admin: 08/04/20 16:56 Dose: 30 mg Documented by: Enoxaparin Sodium (Lovenox) 30 mg SUBCUT Q12H [facility] Last Admin: 08/05/20 17:33 Dose: 30 mg Documented by: Famotidine (Pepcid) 20 mg IVPUSH ONETIME ONE Stop: 08/05/20 09:01 Last Admin: 08/05/20 09:43 Dose: Not Given Documented by: Furosemide (Lasix) 40 mg IVPUSH NOW [facility] Stop: 08/04/20 17:00 Furosemide (Lasix) 20 mg IVPUSH ONETIME ONE Stop: 08/04/20 22:01 Last Admin: 08/04/20 22:43 Dose: 20 mg Documented by: Furosemide (Lasix) 40 mg IVPUSH NOW ONE Stop: 08/06/20 14:16 Last Admin: 08/06/20 14:29 Dose: 40 mg Documented by: Dextrose/Sodium Chloride (Dextrose 5%-Normal Saline) 1,000 mls @ 150 mls/hr IV ASDIRECTED [facility] Last Admin: 08/04/20 10:51 Dose: 150 mls/hr Documented by: Remdesivir 200 mg/ Sodium (Chloride) 250 mls @ 250 mls/hr IV ONETIME ONE Stop: 08/04/20 14:33 Last Admin: 08/04/20 16:54 Dose: 250 mls/hr Documented by: Remdesivir 100 mg/ Sodium (Chloride) 100 mls @ 100 mls/hr IV Q24H [facility] Stop: 08/08/20 16:59 Last Admin: 08/08/20 15:31 Dose: 100 mls/hr Documented by: Azithromycin 500 mg/ Sodium (Chloride) 250 mls @ 250 mls/hr IV Q24H [facility] Stop: 08/06/20 17:59 Last Admin: 08/06/20 16:58 Dose: 250 mls/hr Documented by: Ceftriaxone Sodium 2 gm/ (Sodium Chloride) 100 mls @ 200 mls/hr IV Q24H [facility] Stop: 08/08/20 18:29 Last Admin: 08/08/20 17:36 Dose: 200 mls/hr Documented by: Sodium Chloride (Normal Saline) Confirm Administered Dose 250 mls @ as directed .ROUTE .STK-MED ONE Stop: 08/04/20 20:59 Last Admin: 08/04/20 21:14 Dose: 50 mls/hr Documented by: Diltiazem HCl 100 mg/ Sodium (Chloride) 100 mls @ 5 mls/hr IV TITRATE [facility]; Protocol Last Titration: 08/05/20 08:00 Dose: 0 mg/hr, 0 mls/hr Documented by: Potassium Chloride 10 meq/ (Premix) 100 mls @ 100 mls/hr IV Q1H [facility] Stop: 08/05/20 12:59 Last Admin: 08/05/20 12:51 Dose: 100 mls/hr Documented by: Piperacillin Sod/Tazobactam (Sod 4.5 gm/ Sodium Chloride) 100 mls @ 200 mls/hr IV ONETIME ONE Stop: 08/16/20 10:15 Last Admin: 08/16/20 11:05 Dose: 200 mls/hr Documented by: Sodium Chloride (Normal Saline) 500 mls @ 999 mls/hr IV .BOLUS ONE Stop: 08/16/20 10:47 Last Admin: 08/16/20 11:04 Dose: 999 mls/hr Documented by: Sodium Chloride (Normal Saline) 100 mls @ 75 mls/hr IV ASDIRECTED [facility] Iopamidol (Isovue-370 (76%)) 100 ml IVPUSH ONETIME ONE Stop: 08/16/20 12:03 Last Admin: 08/16/20 12:25 Dose: 100 ml Documented by: Lidocaine (Aspercreme 4%) 1 each TOP DAILY [facility] Last Admin: 08/18/20 10:54 Dose: 1 each Documented by: Magnesium Hydroxide (Milk Of Magnesia) 30 ml PO ONETIME ONE Stop: 08/13/20 09:48 Last Admin: 08/13/20 09:56 Dose: 30 ml Documented by: Magnesium Hydroxide (Milk Of Magnesia) 30 ml PO ONETIME ONE Stop: 08/18/20 08:57 Last Admin: 08/18/20 09:23 Dose: 30 ml Documented by: Metoprolol Tartrate (Lopressor) 2.5 mg IVPUSH ONETIME ONE Stop: 08/05/20 07:47 Last Admin: 08/05/20 07:56 Dose: 2.5 mg Documented by: Metoprolol Tartrate (Lopressor) 50 mg PO BIDMEALS [facility] Last Admin: 08/06/20 08:24 Dose: 50 mg Documented by: Metoprolol Tartrate (Lopressor) 2.5 mg IVPUSH ONETIME ONE Stop: 08/05/20 08:13 Last Admin: 08/05/20 17:45 Dose: 2.5 mg Documented by: Metoprolol Tartrate (Lopressor) 75 mg PO BIDMEALS [facility] Last Admin: 08/11/20 17:36 Dose: 75 mg Documented by: Metoprolol Tartrate (Lopressor) 25 mg PO ONETIME ONE Stop: 08/06/20 09:31 Last Admin: 08/06/20 09:31 Dose: 25 mg Documented by: Non-Formulary Medication (Docusate Sodium [Colace]) 150 mg PO DAILY [facility] Potassium Chloride (Klor-Con M20) 40 meq PO ONETIME ONE Stop: 08/06/20 11:01 Last Admin: 08/06/20 11:58 Dose: 40 meq Documented by: Potassium Chloride (Klor-Con M20) 40 meq PO BID [facility] Stop: 08/18/20 09:01 Last Admin: 08/17/20 20:26 Dose: 40 meq Documented by: Trolamine Salicylate (Aspercreme 10%) 0 gm TOP Q1H PRN PRN Reason: Pain - Exam Quality Assessment: Reports: DVT Prophylaxis. Denies: Supplemental Oxygen, Urine Catheter General: Reports: Alert, Oriented, Cooperative, No Acute Distress HEENT: Reports: Pupils Equal, Pupils Reactive, Mucous Membr. Moist/[place] Neck: Reports: Supple, Trachea Midline Lungs: Reports: Normal Respiratory Effort, Decreased Breath Sounds Cardiovascular: Reports: Regular Rate, Regular Rhythm, Murmurs (systolic ) GI/Abdominal Exam: Normal Bowel Sounds, Soft, Non-Tender, No Distention (Female) Exam: Deferred Rectal (Female) Exam: Deferred Back Exam: Reports: Normal Inspection, Full Range of Motion Extremities: Normal Inspection, Normal Range of Motion, Non-Tender, No Pedal Edema, Normal Capillary Refill Skin: Reports: Warm, Dry, Intact Neurological: Reports: No New Focal Deficit Psy/Mental Status: Reports: Alert, Normal Affect, Normal Mood
[2020-08-22] MEDS: Zinc Sulfate 220 MG Cap PO SCH (09:13)
[2020-08-22] MEDS: Aspirin 81 MG Tab.EC PO SCH (09:13)
[2020-08-22] MEDS: guaiFENesin 600 MG Tab.ER PO SCH ×2 (09:13→14:27)
[2020-08-22] MEDS: Apixaban 5 MG Tab PO SCH (09:13)
[2020-08-22] MEDS: Ezetimibe 10 MG Tab PO SCH (09:13)
[2020-08-22] MEDS: Cholecalciferol (Vitamin D3) 25 MCG Tab PO SCH (09:13)
[2020-08-22] MEDS: Losartan 25 MG Tab PO SCH (09:13)
[2020-08-22] MEDS: Spironolactone 25 MG Tab PO SCH (09:14)
[2020-08-22] MEDS: Fluticasone Propionate Nasal Spray 16 GM Bottle NAS SCH (09:14)
[2020-08-22] MEDS: Magnesium Hydroxide 400 MG/5 ML Susp 30 ML Cup PO PRN (09:15)
[2020-08-22] MEDS: Metoprolol Tartrate 25 MG Tab PO SCH (09:15)
[2020-08-22] MEDS: Primidone 50 MG Tab PO SCH (09:15)
[2020-08-22] MEDS ORDERED: Bisacodyl 10 MG Supp RECTAL ONE (11:30)
[2020-08-22 14:06] VITALS: BP 136/94; PULSE 69
== END 2020-08-22 15:20 | DRG 177 ==
LOC: SUPCPDRO 09:21 → JD.ED 09:21 → JD.MS 14:02 → JD.ICU 08-05 05:15 → JD.MS 08-17 16:11
PROVIDERS: ADMIT Family Medicine; ATTEND Family Medicine
PROC: XW13325 Transfusion of Convalescent Plasma (Nonautologous) into Peripheral Vein, Percutaneous Approach, New Technology Group 5 (ICD-10-PCS; principal; 2020-08-04)
PROC: XW033E5 Introduction of Remdesivir Anti-infective into Peripheral Vein, Percutaneous Approach, New Technology Group 5 (ICD-10-PCS; 2020-08-04)
PROC: 8E0ZXY6 Isolation (ICD-10-PCS; 2020-08-04)
DX: U07.1 COVID-19 (principal); D72.821 Monocytosis (symptomatic); R09.02 Hypoxemia; J12.89 Other viral pneumonia; E78.00 Pure hypercholesterolemia, unspecified; J96.01 Acute respiratory failure with hypoxia; J69.0 Pneumonitis due to inhalation of food and vomit; E87.1 Hypo-osmolality and hyponatremia; I50.32 Chronic diastolic (congestive) heart failure; I48.91 Unspecified atrial fibrillation; Z66 Do not resuscitate; G25.0 Essential tremor; Z85.828 Personal history of other malignant neoplasm of skin; I25.10 Atherosclerotic heart disease of native coronary artery without angina pectoris; I25.119 Atherosclerotic heart disease of native coronary artery with unspecified angina pectoris; K21.9 Gastro-esophageal reflux disease without esophagitis; M19.90 Unspecified osteoarthritis, unspecified site; Z79.01 Long term (current) use of anticoagulants; Z79.82 Long term (current) use of aspirin; Z79.899 Other long term (current) drug therapy; Z91.040 Latex allergy status; Z88.8 Allergy status to other drugs, medicaments and biological substances; I11.0 Hypertensive heart disease with heart failure; E87.6 Hypokalemia; Z86.73 Personal history of transient ischemic attack (TIA), and cerebral infarction without residual deficits; R73.9 Hyperglycemia, unspecified; D64.9 Anemia, unspecified; H54.7 Unspecified visual loss; H91.90 Unspecified hearing loss, unspecified ear; I10 Essential (primary) hypertension; E78.5 Hyperlipidemia, unspecified; Z95.5 Presence of coronary angioplasty implant and graft; I25.2 Old myocardial infarction; J45.909 Unspecified asthma, uncomplicated; G47.33 Obstructive sleep apnea (adult) (pediatric); K59.09 Other constipation; Z87.440 Personal history of urinary (tract) infections; F41.9 Anxiety disorder, unspecified; Z85.01 Personal history of malignant neoplasm of esophagus
CPT/HCPCS: 36415; 71045; 80053; 81001; 82553; 82728; 83605; 83615; 83735; 83880; 83930; 84484; 85025; 85379; 85610; 85730; 86140; 86900; 86901; 87040 ×2; 93005; 97110; 97162; 99285; A9270; J7042; U0002; 36430; 51702; 71275; 71275-26; 80048; 82270; 82272; 84100; 84145; 93010; 93306; 94640; 94667; 94668; 94760; 94761; 97116-GP; 97165-GO; 97530-GO; 97530-GP; 97535-GO; 99222; 99232; 99233; 99239; J0456; J0696; J1650; J1940; J2543; J3480; J3490; J7030; J7050; J8540; P9017; Q9967

== ENCOUNTER 2020-08-28 00:20 | Emergency (ER) | payer MEDICARE, BC ==
[2020-08-28 00:31] VITALS: PULSE 107
[2020-08-28] MEDS ORDERED: Sodium Chloride 0.9% 1,000 ML ONE (00:32)
[2020-08-28] MEDS ORDERED: Sodium Chloride 0.9% 1,000 ML IV ONE (00:34)
[2020-08-28] MEDS ORDERED: Ketamine 500 mg/10 ML MDV IV STA ×2 (00:52→01:20)
[2020-08-28] MEDS ORDERED: Norepinephrine 4 MG in Dextrose 5% in Water 246 ML IV SCH ×2 (01:15)
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
[2020-08-28] MEDS ORDERED: Sodium Chloride 0.9% 1,000 ML IV SCH (01:47)
[2020-08-28 03:17] VITALS: BP 68/46
--- NOTE | 2020-08-28 09:04 | CR ---
Chest: Portable view of the chest was obtained. Comparison: Prior chest x-ray of 08/18/20. Findings: Slight atelectasis is seen within the left base changing in appearance from prior study. Central lung markings are minimally increased and difficult to exclude minimal pulmonary vascular congestion. Heart does not appear enlarged. Upper mediastinum is normal. Overlying monitor leads are seen. Bone settings were reviewed which show nothing acute. Impression: 1. Changing atelectasis within the left lung base. 2. Central pulmonary markings are minimally increased and difficult to exclude slight pulmonary vascular congestion. Diagnostic code #3
== END 2020-08-28 02:50 ==
LOC: JD.ED 00:20
DX: I48.0 Paroxysmal atrial fibrillation (principal); I95.9 Hypotension, unspecified; I25.10 Atherosclerotic heart disease of native coronary artery without angina pectoris; E78.00 Pure hypercholesterolemia, unspecified; I10 Essential (primary) hypertension; I25.2 Old myocardial infarction; J45.909 Unspecified asthma, uncomplicated; K21.9 Gastro-esophageal reflux disease without esophagitis; M19.90 Unspecified osteoarthritis, unspecified site; E87.1 Hypo-osmolality and hyponatremia; Z86.19 Personal history of other infectious and parasitic diseases; Z91.040 Latex allergy status; Z91.018 Allergy to other foods; Z88.8 Allergy status to other drugs, medicaments and biological substances; Z88.1 Allergy status to other antibiotic agents; Z79.82 Long term (current) use of aspirin; Z79.899 Other long term (current) drug therapy
CPT/HCPCS: 36415; 36600; 71045; 80053; 82803; 83605; 83735; 83880; 84484; 85007; 85027; 87040; 92960; 93005; 96365; 96375; 99152; 99153; 99285; J0282; J7030; J7060; 93010

== ENCOUNTER 2021-03-15 11:55 | Inpatient (IN) | payer MEDICARE, BC ==
[2021-03-15] MEDS ORDERED: Furosemide 40 MG/4 ML VIAL IVPUSH ONE (12:13)
[2021-03-15] MEDS ORDERED: Sodium Chloride 0.9% 10 ML Syringe FLUSH PRN (12:16)
--- NOTE | 2021-03-15 12:16 | EDM.PDOC ---
ED HPI GENERAL MEDICAL PROBLEM - General Chief Complaint: Respiratory Problem Stated Complaint: LOW O2/COUGH AND SOB Time Seen by Provider: 03/15/21 12:01 Source of Information: Reports: Patient, Family (daughters) History Limitations: Reports: Respiratory Distress (She can only speak in 1-3 word sentences.) - History of Present Illness INITIAL COMMENTS - FREE TEXT/NARRATIVE: 85-year-old female presents to the ED from home where her daughters are helping care for her. She apparently developed upper respiratory tract symptoms with cough which was somewhat productive on Tuesday, March 11. She was seen at the walk-in clinic on March 12 and placed on oral antibiotic for bronchitis. A chest x-ray and labs apparently were completed at that time. Of note the patient had COVID-19 illness in July last year requiring prolonged hospitalization and then was admitted to one of the local nursing homes she stayed for only a day or 2 and then was transferred to [place] where she spent the next 3 months until October when [facility] was [facility]. She was discharged from the [facility] to the care of her daughters January 10 of this year. Apparently some of her medications have been changed. She carries a history of COPD and congestive heart failure. She is not able to provide much history as she is in significant respiratory distress and can only speak in 1-3 word sentences. O2 sats on room air were 77%. She apparently is using oxygen at nighttime at home with 2 L/min by nasal cannula. She has not had any COVID-19 vaccinations. She denies looking at the color of any sputum produced. Not aware of any significant rigors or chills. Things have a dramatically worsened over the last 12 to 18 hours. Much more short of breath. Hardly could eat any breakfast. She denies having any central chest pain now or in the last week. Onset: Gradual Onset Date: 03/11/21 Duration: Day(s):, Getting Worse Location: Reports: Chest (Marked increased congestion with paroxysmal cough and hypoxemia over the last 12 to 18 hours.) Quality: Reports: Other (Dyspnea with hypoxemia improved paroxysmal) Severity: Severe (cough compounded with pulmonary edema.) Improves with: Reports: Rest Worsens with: Reports: Other (Worse with trying to walk. Came into the ED in a wheelchair.) Context: Denies: Activity (.), Exercise, Lifting, Sick Contact Associated Symptoms: Reports: Cough, cough w sputum, Loss of Appetite, Malaise, Shortness of Breath, Weakness. 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: Reports: Other (see below) (Only her prescribed medications.) - Related Data Allergies Allergy/AdvReac Type Severity Reaction Status Date / Time latex Allergy Rash Verified 03/15/21 16:27 atorvastatin calcium AdvReac Muscle Verified 03/15/21 16:27 [From Lipitor] Aches doxycycline AdvReac Vomiting Verified 03/15/21 16:27 rosuvastatin calcium AdvReac Muscle Verified 03/15/21 16:27 [From Crestor] Aches simvastatin [From Zocor] AdvReac Muscle Verified 03/15/21 16:27 Aches Home Meds: Home Meds Aspirin [Low Dose Aspirin EC] 81 mg PO DAILY 02/27/14 [History] Ubidecarenone [Coenzyme Q10] 100 mg PO DAILY 02/27/14 [History] Cholecalciferol (Vitamin D3) [Vitamin D3] 1,000 units PO DAILY 10/11/14 [History] Vitamin B Complex [B Complex] 1 tab PO DAILY 03/28/15 [History] Albuterol [Ventolin HFA] 2 puff INH Q6H PRN 11/18/17 [History] Gabapentin [Neurontin] 300 mg PO BID 11/18/17 [History] Nitroglycerin 0.4 mg SL ASDIRECTED PRN 11/18/17 [History] Lovastatin [Mevacor] 80 mg PO BEDTIME 11/21/17 [History] Fluticasone Propionate [Flonase] 1 spray LINDA BID 08/04/20 [History] Furosemide [Lasix] 20 mg PO DAILY 08/04/20 [History] Lactobacillus Rhamnosus GG [Culturelle] 1 cap PO DAILY 08/04/20 [History] Primidone [Mysoline] 100 mg PO BID 08/04/20 [History] Acetaminophen [Tylenol 8 Hour] 650 mg PO BID PRN 03/15/21 [History] Amiodarone [Cordarone] 200 mg PO DAILY 03/15/21 [History] Azithromycin. 03/15/21 [History] Bisacodyl [Laxative Suppository] 10 mg RECTAL DAILY PRN 03/15/21 [History] Calcium Carbonate/Vitamin D3 [Calcium 600-Vit D3 400 Tablet] 1 tab PO BIDMEALS 03/15/21 [History] Cefdinir [Omnicef] 03/15/21 [History] Denosumab [Prolia] 03/15/21 [History] Docusate Sodium [Colace] 100 mg PO DAILY 03/15/21 [History] Docusate Sodium/Sennosides [Senna Plus] 2 tab PO DAILY PRN 03/15/21 [History] Ferrous Sulfate 325 mg PO DAILY 03/15/21 [History] Fexofenadine HCl [Anjali Allergy] 60 mg PO DAILY 03/15/21 [History] Folic Acid 0.4 mg PO DAILY 03/15/21 [History] Losartan [Cozaar] 1 tab PO DAILY 03/15/21 [History] Melatonin 5 mg PO BEDTIME 03/15/21 [History] Menthol [Biofreeze] 03/15/21 [History] Menthol/Methyl Salicylate [Icy Hot] 03/15/21 [History] Metoprolol Tartrate [Lopressor] 25 mg PO BID 03/15/21 [History] Omeprazole 40 mg PO DAILY 03/15/21 [History] Potassium Chloride [Klor-Con M20] 20 meq PO WITHBREAKFAST 03/15/21 [History] Prednisolone Acetate/Pf [Prednisolone Acet 1% Eye Drop] 1 drop EYERT TID 03/15/21 [History] Prevagen. 03/15/21 [History] Sodium Chloride 1 g PO DAILY 03/15/21 [History] Tiotropium Poca [Spiriva Respimat] 2 puff INH DAILY 03/15/21 [History] amLODIPine Besylate [Norvasc] 5 mg PO BEDTIME 03/15/21 [History] buPROPion [Wellbutrin SR] 150 mg PO DAILY 03/15/21 [History] Past Medical History HEENT History: Reports: Cataract Other HEENT History: needs glasses for reading Cardiovascular History: Reports: Afib (paroxysmal), CAD, Heart Failure, High Cholesterol, Hypertension, SC Other Cardiovascular History: with stents Respiratory History: Reports: Asthma, COPD, Sleep Apnea (untreated) Other Respiratory History: does not use any Pap at home. Currently on oxygen at 2 L/min during the night with an oxygen concentrator at home. This is since [facility] from the [facility] January 10. This is since link COVID-19 illness in July last year Gastrointestinal History: Reports: GERD Other Gastrointestinal History: stool softener and laxative she takes at home bid Genitourinary History: Reports: UTI, Recurrent Other Genitourinary History: BURNING IN PERINIUM SIZE STAMPER History: Reports: Musculoskeletal History: Reports: Back Pain, Chronic, Fracture (right foot), Osteoarthritis, Other (See Below) (spinal stenosis) Other Musculoskeletal History: right foot fracture 4-5 yrs ago, right knee replacement 1 year ago. Neurological History: Reports: Other (See Below) (Essential tremor) Other Neuro History: pt states she has "essential" tremors Psychiatric History: Reports: Anxiety Endocrine/Metabolic History: Reports: Other (See Below) Other Endocrine/Metabolic History: says she has a goiter problem many years ago Other Hematologic History: SPLEEN REMOVED IN 1989 Immunologic History: Reports: Other (See Below) Other Immunologic History: spleen removed. 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 Pt thinks it is dermatitis - Infectious Disease History Infectious Disease History: Reports: Chicken Pox, Measles, Novel Coronavirus, Shingles - Past Surgical History HEENT Surgical History: Reports: Cataract Surgery (right) Social & Family History - Family History Family Medical History: No Pertinent Family History - Tobacco Use Tobacco Use Status *Q: Never Tobacco User - Caffeine Use Caffeine Use: Reports: Coffee, Tea Other Caffeine Use: decaff Caffeine Use Comment: she states that she drinks de-caf coffee - Recreational Drug Use Recreational Drug Use: No - Living Situation & Occupation Living situation: Reports: Extended Care Facility ([facility]) Occupation: Retired ED ROS GENERAL - Review of Systems Review Of Systems: See Below Constitutional: Reports: Fever, Malaise, Weakness, Fatigue, Decreased Appetite. Denies: Chills HEENT: Reports: Glasses, Other (Has had previous cataract extractions and intraocular lens implants.) Respiratory: Reports: Shortness of Breath, Wheezing, Cough, Sputum. Denies: Pleuritic Chest Pain, Hemoptysis (Frothy white sputum) Cardiovascular: Reports: Blood Pressure Problem, Dyspnea on Exertion (Mild both lower extremities), Edema, Lightheadedness, Orthopnea. Denies: Claudication, Palpitations Endocrine: Reports: Fatigue GI/Abdominal: Reports: Constipation, Decreased Appetite, Nausea. Denies: Vomiting (Mild nausea primarily today.) : Reports: Frequency, Incontinence (Urgent stress components.) Musculoskeletal: Reports: Neck Pain (Knees hips lower back), Shoulder Pain ( neck and shoulders.), Back Pain, Joint Pain Skin: Reports: Pallor Neurological: Reports: Dizziness, Difficulty Walking (Cannot walk today. Walks apparently with the aid of a walker. Gets around with a wheelchair), Weakness. Denies: Confusion, Headache, Numbness, Syncope, Tingling Psychiatric: Reports: No Symptoms ( at times as well.) Hematologic/Lymphatic: Reports: No Symptoms Immunologic: Reports: No Symptoms ED EXAM, GENERAL - Physical Exam Exam: See Below Exam Limited By: Respiratory Distress (Marked respiratory distress) General Appearance: Alert, WD/WN, Moderate Distress, Other (Heart respiratory distress. Temperature was 37.1 heart rate was 64 respiratory was 22 to 28/min with O2 sats of only 70 to 75% on room air. BP 188/80.) Eye Exam: Bilateral Eye: Normal Inspection (Marked blepharal pallor with hemoglobin less than 9 clinically. No scleral icterus.), PERRL Throat/Mouth: Normal Lips, Normal Oropharynx (Lung is dry and coated.), Other Head: Atraumatic, Normocephalic, Other (No outward signs of any head or facial trauma) Neck: Limited Range of Motion (Hepatus on lateral rotation.). No: Carotid Bruit, Lymphadenopathy (L), Lymphadenopathy (R) Respiratory/Chest: Respiratory Distress (Marked respiratory distress with tachypnea.), Decreased Breath Sounds (Decreased air entry the lower 25% lung arrington bilaterally), Rales, Rhonchi (Throughout all lung arrington throughout both upper lobes. Wheezing in all lung arrington), Wheezing. No: Lungs Clear, Normal Breath Sounds Cardiovascular: Regular Rate, Rhythm, No Gallop, No Murmur (Murmur could be identified but could be obscured by significant adventitial lung sounds), JVD (3 cm below the right angle of her mandible). No: Normal Peripheral Pulses, No Edema Peripheral Pulses: 1+: Posterior Tibial (L), Posterior Tibial (R), Dorsalis Pedis (L), Dorsalis Pedis (R), 2+: Carotid (L), Carotid (R) GI/Abdominal: Normal Bowel Sounds, Soft, Non-Tender, No Organomegaly, No Mass, Pelvis Stable, Distended (Moderately distended and tympanic to percussion upper abdomen compatible with aerophagia.). No: Guarding, Rigid, Rebound, Tender Back Exam: Normal Inspection. No: CVA Tenderness (L), CVA Tenderness (R) Extremities: Pedal Edema (Trace pedal edema at the ankles.), Other (Minutes of osteoarthritic changes both knees both hips) Neurological: Alert, Oriented, CN II-XII Intact, Normal Cognition. No: Normal Gait (Not evaluated she is not able to walk.) Psychiatric: Flat Affect Skin Exam: Warm, Dry, Intact, Cool (Cool to touch.), Pallor (Moderate pallor) #1 Interpretation EKG Date: 03/15/21 Time: 12:22 Rhythm: Other (Sinus bradycardia) Rate (Beats/Min): 57 [place]: Normal P-Wave: Present (First-degree AV block) QRS: Other (Left atrial hypertrophy pattern near Q waves V1 and V2 consider old anteroseptal myocardial infarction) ST-T: Normal QT: Prolonged (Mildly prolonged) EKG Interpretation Comments: Abnormal ECG Course - Vital Signs Last Recorded V/S: Last Vital Signs Temp 36.8 C 03/15/21 15:17 Pulse 59 L 03/15/21 15:17 Resp 18 03/15/21 15:17 BP 154/93 H 03/15/21 15:17 Pulse Ox 92 L 03/15/21 15:17 - Orders/Labs/Meds Orders: Active Orders 24 hr Category Date Time Status RT Aerosol Therapy [RC] ASDIRECTED Care 03/15/21 12:14 Active Chest 1V Frontal [CR] Stat Exams 03/15/21 12:14 Taken CULTURE BLOOD [BC] Stat Lab 03/15/21 12:37 Received CULTURE BLOOD [BC] Stat Lab 03/15/21 12:45 Received Albuterol/Ipratropium [DuoNeb 3.0-0.5 MG/3 ML] Med 03/15/21 12:14 Active 3 ml NEB Q4H PRN Sodium Chloride 0.9% [Saline Flush] Med 03/15/21 12:16 Active 10 ml FLUSH ASDIRECTED PRN Blood Culture x2 Reflex Set [OM.PC] Stat Oth 03/15/21 12:16 Ordered Peripheral IV Insertion Adult [OM.PC] Stat Ot 03/15/21 12:15 Ordered Medication Orders Albuterol/Ipratropium (Albuterol/Ipratropium 3.0-0.5 Mg/3 Ml Neb Soln) 3 ml NEB Q4H PRN PRN Reason: Shortness Of Breath/wheezing Last Admin: 03/15/21 12:35 Dose: 3 ml Documented by: SEMAJ Albuterol/Ipratropium (Albuterol/Ipratropium 3.0-0.5 Mg/3 Ml Neb Soln) 3 ml NEB Q4HRRT PRN PRN Reason: Shortness of Breath Amiodarone HCl (Amiodarone 200 Mg Tab) 200 mg PO DAILY ROBE Amlodipine Besylate (Amlodipine 10 Mg Tab) 5 mg PO BEDTIME [facility]BE Aspirin (Aspirin 81 Mg Tab.Ec) 81 mg PO DAILY [facility] Bisacodyl (Bisacodyl 10 Mg Supp) 10 mg RECTAL DAILY PRN PRN Reason: Constipation Bupropion HCl (Bupropion 150 Mg Tab.Sr) 150 mg PO DAILY [facility] Docusate Sodium (Docusate Sodium 100 Mg Cap) 100 mg PO DAILY ROBE Fluticasone Propionate (Fluticasone Propionate Nasal [place] 16 Gm Bottle) gm LINDA BID RO[facility] Gabapentin (Gabapentin 300 Mg Cap) 300 mg PO BID [facility] Sodium Chloride (Normal Saline) 1,000 mls @ 50 mls/hr IV ASDIRECTED ROBE Cefepime HCl 1 gm/ Premix 50 mls @ 100 mls/hr IV Q12HR [facility] Losartan Potassium (Losartan 50 Mg Tab) 50 mg PO DAILY ROBE Metoprolol Tartrate (Metoprolol Tartrate 25 Mg Tab) 25 mg PO BID ROBE Nitroglycerin (Nitroglycerin 0.4 Mg Tab.Sl) 0.4 mg SL ASDIRECTED PRN PRN Reason: Chest Pain Non-Formulary Medication (Calcium Carbonate/Vitamin D3) 1 tab PO BIDMEALS ROBE Non-Formulary Medication (Cholecalciferol (Vitamin D3) [Vitamin D3]) 1,000 units PO DAILY [facility] Non-Formulary Medication (Ferrous Sulfate) 325 mg PO DAILY [facility]BE Non-Formulary Medication (Fexofenadine Hcl) 60 mg PO DAILY [facility] Non-Formulary Medication (Folic Acid) 0.4 mg PO DAILY [facility] Non-Formulary Medication (Lactobacillus Rhamnosus Gg) 1 cap PO DAILY [facility] Non-Formulary Medication (Lovastatin [Mevacor]) 80 mg PO BEDTIME [facility] Non-Formulary Medication (Melatonin [Melatonin]) 5 mg PO BEDTIME [facility] Non-Formulary Medication (Omeprazole [Omeprazole]) 40 mg PO DAILY [facility] Non-Formulary Medication (Prednisolone Acetate/Pf [Prednisolone Acet 1% Eye Drop]) 1 drop EYERT TID [facility] Potassium Chloride (Potassium Chloride 20 Meq Tab.Er) 20 meq PO WITHBREAKFAST [facility] Primidone (Primidone 50 Mg Tab) 100 mg PO BID [facility] Senna/Docusate Sodium (Docusate Sodium/Sennosides 50-8.6 Mg Tab) 2 tab PO DAILY PRN PRN Reason: Constipation Sodium Chloride (Sodium Chloride 0.9% 10 Ml Syringe) 10 ml FLUSH ASDIRECTED PRN PRN Reason: Keep Vein Open Last Admin: 03/15/21 13:15 Dose: 10 ml Documented by: HERMMIC Sodium Chloride (Sodium Chloride 1 Gm Tab) 1 gm PO TID [facility] Vancomycin HCl (Pharmacy To Dose - Vancomycin) 1 dose .XX ASDIRECTED [facility] Labs: Laboratory Tests 03/15/21 03/15/21 03/15/21 Range/Units 12:10 12:10 12:10 WBC 17.03 H (3.98-10.04) K/mm3 RBC 3.06 L (3.98-5.22) M/mm3 Hgb 10.4 L D (11.2-15.7) gm/dl Hct 31.8 L (34.1-44.9) % MCV 103.9 H D (79.4-94.8) fl MCH 34.0 H (25.6-32.2) pg MCHC 32.7 (32.2-35.5) g/dl RDW Std Deviation 54.4 H (36.4-46.3) fL Plt Count 289 D (182-369) K/mm3 MPV 10.7 (9.4-12.3) fl Neutrophils % (Manual) 66 H (40-60) % Band Neutrophils % 4 (0-10) % Lymphocytes % (Manual) 22 (20-40) % Atypical Lymphs % 0 % Monocytes % (Manual) 6 (2-10) % Eosinophils % (Manual) 2 (0.7-5.8) % Basophils % (Manual) 0 L (0.1-1.2) Platelet Estimate Adequate Macrocytosis 2+ moderate Target Cells 1+ slight Tear Drop Cells 1+ slight RBC Morph Comment Not Reportable PT 11.0 (9.7-12.0) SECONDS INR 1.03 APTT 27.8 (21.7-31.4) SECONDS Puncture Site ABG pH (7.35-7.45) ABG pCO2 (35.0-45.0) mmHg ABG pO2 (80.0-100.0) mmHg ABG HCO3 (22.0-26.0) meq/L ABG O2 Saturation (96.0-97.0) % ABG Base Excess (-2-2.0) A-a Gradient mmHg O2 Delivery Device Oxygen Flow Rate FiO2 (21.00-100.00) % Blood Gas Comments Sodium 127 L (136-145) mEq/L Potassium 4.2 (3.5-5.1) mEq/L Chloride 89 L (98-107) mEq/L Carbon Dioxide 31 (21-32) mEq/L Anion Gap 11.2 (5-15) BUN 8 (7-18) mg/dL Creatinine 0.7 (0.55-1.02) mg/dL Est Cr Clr Drug Dosing TNP Estimated GFR (MDRD) > 60 (>60) mL/min BUN/Creatinine Ratio 11.4 L (14-18) Glucose 152 H (70-99) mg/dL Lactic Acid (0.4-2.0) mmol/L Calcium 7.8 L (8.5-10.1) mg/dL Magnesium 2.1 (1.8-2.4) mg/dL Total Bilirubin 0.5 (0.2-1.0) mg/dL AST 21 (15-37) U/L ALT 17 (14-59) U/L Alkaline Phosphatase 62 (46-116) U/L CK-MB (CK-2) 1.7 (0-3.6) ng/ml Troponin I < 0.017 (0.00-0.056) ng/mL NT-Pro-B Natriuret Pep (0-450) pg/mL Total Protein 7.4 (6.4-8.2) g/dl Albumin 3.4 (3.4-5.0) g/dl Globulin 4.0 gm/dL Albumin/Globulin Ratio 0.9 L (1-2) Urine Color (Yellow) Urine Appearance (Clear) Urine pH (5.0-8.0) Ur Specific [place] (1.005-1.030) Urine Protein (Negative) Urine Glucose (UA) (Negative) Urine Ketones (Negative) Urine Occult Blood (Negative) Urine Nitrite (Negative) Urine Bilirubin (Negative) Urine Urobilinogen (0.2-1.0) Ur Leukocyte Esterase (Negative) Urine RBC (0-5) /hpf Urine WBC (0-5) /hpf Ur Epithelial Cells (0-5) /hpf Urine Bacteria (FEW) /hpf Urine Mucus (FEW) /hpf SARS-CoV-2 RNA (IRMA) (NEGATIVE) 03/15/21 03/15/21 03/15/21 Range/Units 12:10 12:10 12:19 WBC (3.98-10.04) K/mm3 RBC (3.98-5.22) M/mm3 Hgb (11.2-15.7) gm/dl Hct (34.1-44.9) % MCV (79.4-94.8) fl MCH (25.6-32.2) pg MCHC (32.2-35.5) g/dl RDW Std Deviation (36.4-46.3) fL Plt Count (182-369) K/mm3 MPV (9.4-12.3) fl Neutrophils % (Manual) (40-60) % Band Neutrophils % (0-10) % Lymphocytes % (Manual) (20-40) % Atypical Lymphs % % Monocytes % (Manual) (2-10) % Eosinophils % (Manual) (0.7-5.8) % Basophils % (Manual) (0.1-1.2) Platelet Estimate Macrocytosis Target Cells Tear Drop Cells RBC Morph Comment PT (9.7-12.0) SECONDS INR APTT (21.7-31.4) SECONDS Puncture Site Lt radial ABG pH 7.44 (7.35-7.45) ABG pCO2 45.4 H (35.0-45.0) mmHg ABG pO2 45.0 L (80.0-100.0) mmHg ABG HCO3 30.3 H (22.0-26.0) meq/L ABG O2 Saturation 77.8 L (96.0-97.0) % ABG Base Excess 5.8 H (-2-2.0) A-a Gradient 48 mmHg O2 Delivery Device Room air Oxygen Flow Rate 0.0 FiO2 21.00 (21.00-100.00) % Blood Gas Comments Pn Sodium (136-145) mEq/L Potassium (3.5-5.1) mEq/L Chloride (98-107) mEq/L Carbon Dioxide (21-32) mEq/L Anion Gap (5-15) BUN (7-18) mg/dL Creatinine (0.55-1.02) mg/dL Est Cr Clr Drug Dosing Estimated GFR (MDRD) (>60) mL/min BUN/Creatinine Ratio (14-18) Glucose (70-99) mg/dL Lactic Acid 1.9 (0.4-2.0) mmol/L Calcium (8.5-10.1) mg/dL Magnesium (1.8-2.4) mg/dL Total Bilirubin (0.2-1.0) mg/dL AST (15-37) U/L ALT (14-59) U/L Alkaline Phosphatase (46-116) U/L CK-MB (CK-2) (0-3.6) ng/ml Troponin I (0.00-0.056) ng/mL NT-Pro-B Natriuret Pep 3706 H (0-450) pg/mL Total Protein (6.4-8.2) g/dl Albumin (3.4-5.0) g/dl Globulin gm/dL Albumin/Globulin Ratio (1-2) Urine Color (Yellow) Urine Appearance (Clear) Urine pH (5.0-8.0) Ur Specific [place] (1.005-1.030) Urine Protein (Negative) Urine Glucose (UA) (Negative) Urine Ketones (Negative) Urine Occult Blood (Negative) Urine Nitrite (Negative) Urine Bilirubin (Negative) Urine Urobilinogen (0.2-1.0) Ur Leukocyte Esterase (Negative) Urine RBC (0-5) /hpf Urine WBC (0-5) /hpf Ur Epithelial Cells (0-5) /hpf Urine Bacteria (FEW) /hpf Urine Mucus (FEW) /hpf SARS-CoV-2 RNA (IRMA) (NEGATIVE) 03/15/21 03/15/21 Range/Units 13:00 13:00 WBC (3.98-10.04) K/mm3 RBC (3.98-5.22) M/mm3 Hgb (11.2-15.7) gm/dl Hct (34.1-44.9) % MCV (79.4-94.8) fl MCH (25.6-32.2) pg MCHC (32.2-35.5) g/dl RDW Std Deviation (36.4-46.3) fL Plt Count (182-369) K/mm3 MPV (9.4-12.3) fl Neutrophils % (Manual) (40-60) % Band Neutrophils % (0-10) % Lymphocytes % (Manual) (20-40) % Atypical Lymphs % % Monocytes % (Manual) (2-10) % Eosinophils % (Manual) (0.7-5.8) % Basophils % (Manual) (0.1-1.2) Platelet Estimate Macrocytosis Target Cells Tear Drop Cells RBC Morph Comment PT (9.7-12.0) SECONDS INR APTT (21.7-31.4) SECONDS Puncture Site ABG pH (7.35-7.45) ABG pCO2 (35.0-45.0) mmHg ABG pO2 (80.0-100.0) mmHg ABG HCO3 (22.0-26.0) meq/L ABG O2 Saturation (96.0-97.0) % ABG Base Excess (-2-2.0) A-a Gradient mmHg O2 Delivery Device Oxygen Flow Rate FiO2 (21.00-100.00) % Blood Gas Comments Sodium (136-145) mEq/L Potassium (3.5-5.1) mEq/L Chloride (98-107) mEq/L Carbon Dioxide (21-32) mEq/L Anion Gap (5-15) BUN (7-18) mg/dL Creatinine (0.55-1.02) mg/dL Est Cr Clr Drug Dosing Estimated GFR (MDRD) (>60) mL/min BUN/Creatinine Ratio (14-18) Glucose (70-99) mg/dL Lactic Acid (0.4-2.0) mmol/L Calcium (8.5-10.1) mg/dL Magnesium (1.8-2.4) mg/dL Total Bilirubin (0.2-1.0) mg/dL AST (15-37) U/L ALT (14-59) U/L Alkaline Phosphatase (46-116) U/L CK-MB (CK-2) (0-3.6) ng/ml Troponin I (0.00-0.056) ng/mL NT-Pro-B Natriuret Pep (0-450) pg/mL Total Protein (6.4-8.2) g/dl Albumin (3.4-5.0) g/dl Globulin gm/dL Albumin/Globulin Ratio (1-2) Urine Color Yellow (Yellow) Urine Appearance Clear (Clear) Urine pH 7.0 (5.0-8.0) Ur Specific [place] 1.025 (1.005-1.030) Urine Protein Negative (Negative) Urine Glucose (UA) Negative (Negative) Urine Ketones Negative (Negative) Urine Occult Blood Negative (Negative) Urine Nitrite Negative (Negative) Urine Bilirubin Negative (Negative) Urine Urobilinogen 0.2 (0.2-1.0) Ur Leukocyte Esterase Negative (Negative) Urine RBC 0-5 (0-5) /hpf Urine WBC 0-5 (0-5) /hpf Ur Epithelial Cells 0-5 (0-5) /hpf Urine Bacteria Rare (FEW) /hpf Urine Mucus Not seen (FEW) /hpf SARS-CoV-2 RNA (IRMA) Negative (NEGATIVE) Meds: Medications Generic Name Dose Route Start Last Admin Trade Name Freq PRN Reason Stop Dose Admin Albuterol/Ipratropium 3 ml 03/15/21 12:14 03/15/21 12:35 Albuterol/Ipratropium 3.0-0.5 Mg/3 Ml Neb Soln NEB 3 ml Q4H PRN Administration Shortness Of Breath/wheezing Albuterol/Ipratropium 3 ml 03/15/21 16:32 Albuterol/Ipratropium 3.0-0.5 Mg/3 Ml Neb Soln NEB Q4HRRT PRN Shortness of Breath Amiodarone HCl 200 mg 03/16/21 09:00 Amiodarone 200 Mg Tab PO DAILY [facility] Amlodipine Besylate 5 mg 03/15/21 21:00 Amlodipine 10 Mg Tab PO BEDTIME [facility] Aspirin 81 mg 03/16/21 09:00 Aspirin 81 Mg Tab.Ec PO DAILY [facility] Bisacodyl 10 mg 03/15/21 16:21 Bisacodyl 10 Mg Supp RECTAL DAILY PRN Constipation Bupropion HCl 150 mg 03/16/21 09:00 Bupropion 150 Mg Tab.Sr PO DAILY [facility] Docusate Sodium 100 mg 03/16/21 09:00 Docusate Sodium 100 Mg Cap PO DAILY [facility] Fluticasone Propionate gm 03/15/21 21:00 Fluticasone Propionate Nasal [place] 16 Gm Bottle LINDA BID [facility] Gabapentin 300 mg 03/15/21 21:00 Gabapentin 300 Mg Cap PO BID [facility] Sodium Chloride 1,000 mls @ 50 mls/hr 03/15/21 14:30 Normal Saline IV ASDIRECTED [facility] Cefepime HCl 1 gm/ Premix 50 mls @ 100 mls/hr 03/15/21 21:00 IV Q12HR RO[facility] Losartan Potassium 50 mg 03/16/21 09:00 Losartan 50 Mg Tab PO DAILY [facility] Metoprolol Tartrate 25 mg 03/15/21 21:00 Metoprolol Tartrate 25 Mg Tab PO BID [facility] Nitroglycerin 0.4 mg 03/15/21 16:21 Nitroglycerin 0.4 Mg Tab.Sl SL ASDIRECTED PRN Chest Pain Non-Formulary Medication 1 tab 03/15/21 17:00 Calcium Carbonate/Vitamin D3 PO BIDMEALS [facility] Non-Formulary Medication 1,000 units 03/16/21 09:00 Cholecalciferol (Vitamin D3) [Vitamin D3] PO DAILY [facility] Non-Formulary Medication 325 mg 03/16/21 09:00 Ferrous Sulfate PO DAILY [facility] Non-Formulary Medication 60 mg 03/16/21 09:00 Fexofenadine Hcl PO DAILY [facility] [place] Non-Formulary Medication 0.4 mg 03/16/21 09:00 Folic Acid PO DAILY [facility] [place] Non-Formulary Medication 1 cap 03/16/21 09:00 Lactobacillus Rhamnosus Gg PO DAILY [facility] [place] Non-Formulary Medication 80 mg 03/15/21 21:00 Lovastatin [Mevacor] PO BEDTIME [place] Non-Formulary Medication 5 mg 03/15/21 21:00 Melatonin [Melatonin] PO BEDTIME [place] Non-Formulary Medication 40 mg 03/16/21 09:00 Omeprazole [Omeprazole] PO DAILY [facility] [place] Non-Formulary Medication 1 drop 03/15/21 21:00 Prednisolone Acetate/Pf [Prednisolone Acet 1% Eye Drop] EYERT TID [place] Potassium Chloride 20 meq 03/16/21 07:00 Potassium Chloride 20 Meq Tab.Er PO WITHBREAKFAST [facility] Primidone 100 mg 03/15/21 21:00 Primidone 50 Mg Tab PO BID [facility] Senna/Docusate Sodium 2 tab 03/15/21 16:21 Docusate Sodium/Sennosides 50-8.6 Mg Tab PO DAILY PRN Constipation Sodium Chloride 10 ml 03/15/21 12:16 03/15/21 13:15 Sodium Chloride 0.9% 10 Ml Syringe FLUSH 10 ml ASDIRECTED PRN Administration Keep Vein Open Sodium Chloride 1 gm 03/15/21 21:00 Sodium Chloride 1 Gm Tab PO TID [facility] Vancomycin HCl 1 dose 03/15/21 16:30 Pharmacy To Dose - Vancomycin .XX ASDIRECTED [place] Discontinued Medications Generic Name Dose Route Start Last Admin Trade Name Freq PRN Reason Stop Dose Admin Ceftriaxone Sodium Confirm 03/15/21 14:04 03/15/21 14:22 Ceftriaxone 2 Gm Advvial Administered 03/15/21 14:05 Not Given Dose 2 gm IV .STK-MED ONE Furosemide 40 mg 03/15/21 12:13 03/15/21 13:15 Furosemide 40 Mg/4 Ml Vial IVPUSH 03/15/21 12:14 40 mg NOW ONE Administration Ceftriaxone Sodium 2 gm/ 100 mls @ 200 mls/hr 03/15/21 13:53 03/15/21 14:19 Sodium Chloride IV 03/15/21 14:22 200 mls/hr ONETIME ONE Administration - Radiology Interpretation Free Text/Narrative:: 85-year-old female presents to the ED in the accompaniment of her daughters from her home here in [place]. She contracted COVID-19 illness in July last year and upon discharge was discharged to one of the local nursing homes. She came home from the [facility] on January 10. Apparently several medications were changed well in the [facility] and she is currently on oxygen at 2 L/min at bedtime with an oxygen concentrator in her home. Current illness started 5 days ago with cough and perhaps low-grade fever. She was seen in the walk-in clinic on March 12 and apparently had a normal chest x-ray and labs done. She was started on oral antibiotic which is not identified at this time. Over the last 12 to 18 hours her breathing is become much more difficult with O2 sats in the low 70s. O2 sats upon arrival were only 72 to 75%. ABGs will be done promptly and then placed on oxygen at 4 L/min by nasal cannula. This achieved O2 sats of 93%. She apparently does have a mildly productive cough but no one has looked at the phlegm. No defined hemoptysis. Low-grade fever reported by sarah macias. Ration she has marked blepharal pallor and is quite pallid in appearance. Suspect hemoglobin of under 9. She has rhonchi throughout all lung [place] she has diffuse wheezing throughout all lung [place]. Clinically she is in acute pulmonary edema. Denies any history of central chest pain in the last few days or week. Has a past history of myocardial infarction. ECG done by triage nurse does not show any acute ischemic changes. Plan saline lock. Lasix 40 mg IV. Chest x-ray to be portable. Septic work-up ordered to include lactic acid and blood cultures x2 and urinalysis by catheterization. - Re-Assessments/Exams Free Text/Narrative Re-Assessment/Exam: 03/15/21 12:35 ABGs reveal a pH of 7.44 with PCO2 of 45.4 and a PO2 of 45.0 indicating respiratory failure. Bicarb is 30.3 with O2 saturations of 77.8% on room air. 03/15/21 12:50: X-ray done portably reveals slight blunting of the right costophrenic angle. Slightly tortuous thoracic aorta moderate cardiomegaly. Left heart border abuts the left costal margin. Emphysematous changes evident. Mildly hazy infiltrate adjacent to the medial heart border right lower lobe compatible with developing pneumonia. 03/15/21 13:12 White count is elevated at 17.03 with differential pending. Hemoglobin is 10.4 with hematocrit of 31.8. MCV elevated 103.9. Platelet count 289,000. PT is 11.0 with an INR of 1.03 and a PTT of 27.8. Sodium is low at 127 with a potassium of 4.2. Chloride is 89 with a bicarb of 31. Anion gap is 11.2. BUN is 8 with a creatinine of 0.7 and a GFR greater than 60. Glucose is 152. Lactic acid 1.9. Calcium 7.8 which is low magnesium is 2.1 bilirubin 0.5 AST 21 with an ALT of 17 alkaline phosphatase is 62. CK-MB fraction is 1.7 troponin I is less than 0.017. Total protein is 7.4 with an albumin fraction of 3.4. 03/15/21 13:45 Differential on the white count shows 66% neutrophils and 4% bands cells. There is 2+ macrocytosis 1+ target cells 1+ teardrop cells suggestive of splenomegaly. BNP is elevated at 3706. Urinalysis obtained by catheterization reveals no signs of infection. Discussed the findings with the patient and her 2 daughters. Her lungs are markedly improved initial evaluation. Very faint wheeze at end of expiration. No longer any rattles. She is still requiring oxygen at 4 L/min by nasal cannula to achieve O2 sats of 92%. We will go ahead and start her on Rocephin 2 g intravenously at this time for suspect pneumonia right lower lobe. I will discussed the case with Dr. Guadalupe on-call hospitalist with a view to admission to the hospital. Departure - Departure Time of Disposition: 15:00 Disposition: Admitted As Inpatient 65 Condition: Poor Clinical Impression: Hypoxemia requiring supplemental oxygen, Febrile illness Pneumonia Qualifiers: Pneumonia type: due to unspecified organism Laterality: left Lung location: lower lobe of lung Qualified Code(s): J18.9 - Pneumonia, unspecified organism Congestive heart failure Qualifiers: Heart failure type: unspecified Heart failure chronicity: unspecified Qualified Code(s): I50.9 - Heart failure, unspecified Respiratory failure Qualifiers: Chronicity: acute on chronic Respiratory failure complication: hypoxia and hypercapnia Qualified Code(s): J96.21 - Acute and chronic respiratory failure with hypoxia; J96.22 - Acute and chronic respiratory failure with hypercapnia Leukocytosis Qualifiers: Leukocytosis type: unspecified Qualified Code(s): D72.829 - Elevated white blood cell count, unspecified - Discharge Information Sepsis Event Note (ED) - Evaluation Sepsis Screening Result: Possible Sepsis Risk - Focused Exam Vital Signs: Vital Signs Temp Pulse Resp BP Pulse Ox Pulse Ox 03/15/21 12:14 94 L 03/15/21 12:04 37.1 C 64 22 H 188/80 H 70 L - My Orders Last 24 Hours: My Active Orders 03/15/21 12:14 RT Aerosol Therapy [RC] ASDIRECTED Chest 1V Frontal [CR] Stat Albuterol/Ipratropium [DuoNeb 3.0-0.5 MG/3 ML] 3 ml NEB Q4H PRN 03/15/21 12:15 Peripheral IV Insertion Adult [OM.PC] Stat 03/15/21 12:16 Sodium Chloride 0.9% [Saline Flush] 10 ml FLUSH ASDIRECTED PRN Blood Culture x2 Reflex Set [OM.PC] Stat 03/15/21 12:37 CULTURE BLOOD [BC] Stat 03/15/21 12:45 CULTURE BLOOD [BC] Stat - Assessment/Plan Last 24 Hours: My Active Orders 03/15/21 12:14 RT Aerosol Therapy [RC] ASDIRECTED Chest 1V Frontal [CR] Stat Albuterol/Ipratropium [DuoNeb 3.0-0.5 MG/3 ML] 3 ml NEB Q4H PRN 03/15/21 12:15 Peripheral IV Insertion Adult [OM.PC] Stat 03/15/21 12:16 Sodium Chloride 0.9% [Saline Flush] 10 ml FLUSH ASDIRECTED PRN Blood Culture x2 Reflex Set [OM.PC] Stat 03/15/21 12:37 CULTURE BLOOD [BC] Stat 03/15/21 12:45 CULTURE BLOOD [BC] Stat
[2021-03-15] MEDS: Albuterol/Ipratropium 3.0-0.5 MG/3 ML Neb Soln NEB PRN ×3 (12:35→20:45)
[2021-03-15] MEDS ORDERED: cefTRIAXone 2 GM in Sodium Chloride 0.9% 100 ML IV ONE (13:53)
[2021-03-15] MEDS ORDERED: cefTRIAXone 2 GM AdvVial IV ONE (14:04)
[2021-03-15] MEDS ORDERED: Sodium Chloride 0.9% 1,000 ML IV SCH (14:30)
[2021-03-15] MEDS ORDERED: Bisacodyl 10 MG Supp RECTAL PRN (16:21)
[2021-03-15] MEDS ORDERED: Nitroglycerin 0.4 MG Tab.SL SL PRN (16:21)
--- NOTE | 2021-03-15 16:39 | PCM.HP.2 ---
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 DuoNebs every 4 hours. Incentive spirometry encouraged. Goal would be to wean down to 2.5 L which would be where she would be at baseline at home. Certainly not in distress at current time . 2. Right lower lobe pneumonia without sepsis. We will treat empirically with cefepime and vancomycin considering her prolonged history of being in a healthcare setting since July. We will monitor for fever. If she goes 48 hours without fever will downgrade to just cefepime or oral Augmentin. Plan as above as per supplemental oxygen and respiratory therapy assessment and treatments. 3. Chronic congestive heart failure; otherwise unspecified. We will need to get records from [place] regarding her ejection fraction. Monitor volume status. Diurese as necessary. Mildly elevated BNP. 4. History of atrial fibrillation not on systemic anticoagulation. Patient is high risk which is likely the reason why she is not on systemic anticoagulation. Continue all home cardiac medications at regular dose. 5. History of hypertension. Again, continue all home cardiac medications regular dose. 6. Status post splenectomy. Continue empiric antibiotics as mentioned above. 7. Hypercholesterolemia. Continue statin therapy. 8. History of coronary artery disease. Continue antiplatelets, statin and all cardiac medications at regular dose. All other medical comorbidities are nonactive conditions and she will continue her home medications at regular dose. CODE STATUS: DNR/DNI. DVT prophylaxis with heparin subcu.
--- NOTE | 2021-03-15 16:48 | CR ---
Chest: Portable view of the chest was obtained. Comparison: Prior chest x-ray of 08/28/20. Slight scarring is seen within the left lung base. Mild area of atelectasis is seen within the right lung base. Heart size and mediastinum are within normal limits for portable technique. Nodular density is seen within the right lung base most likely representing a granuloma. Slight scoliosis is noted within the spine. Osteopenia is present. Impression: 1. Increasing density within the right lung base most likely representing atelectasis. 2. Other findings as described above which are felt to be stable from prior chest x-ray. Diagnostic code #2
[2021-03-15] MEDS ORDERED: CALCIUM CARBONATE PO SCH (17:00)
[2021-03-15] MEDS ORDERED: Vancomycin 1.5 GM in Sodium Chloride 0.9% 500 ML IV ONE (17:00)
[2021-03-15] MEDS ORDERED: VITAMIN D3 PO SCH (17:00)
[2021-03-15] MEDS: Primidone 50 MG Tab PO SCH (18:11)
[2021-03-15] MEDS ORDERED: Non-Formulary Medication 1 Each (Melatonin [Melatonin] 5 MG Tablet) PO SCH (21:00)
[2021-03-15] MEDS ORDERED: amLODIPine 10 MG Tab PO SCH (21:00)
[2021-03-15] MEDS ORDERED: Non-Formulary Medication 1 Each (Lovastatin [Mevacor] 40 MG Tablet) PO SCH (21:00)
[2021-03-15] MEDS: Cefepime 1 GM in Premix Bag 1 BAG IV SCH (21:08)
[2021-03-15] MEDS: Sodium Chloride 1 GM Tab PO SCH (21:11)
[2021-03-15] MEDS: Gabapentin 300 MG Cap PO SCH (21:12)
[2021-03-15] MEDS: Melatonin 3 MG Tab PO SCH (21:12)
[2021-03-15] MEDS: Metoprolol Tartrate 25 MG Tab PO SCH (21:13)
[2021-03-15] MEDS: Fluticasone Propionate Nasal Spray 16 GM Bottle NAS SCH (21:14)
[2021-03-15] MEDS: prednisoLONE Acetate 1% Ophth Susp 5 ML Bottle EYERT SCH (21:15)
[2021-03-15] MEDS: Heparin Sodium 5,000 Units/ML Vial SUBCUT SCH (21:16)
[2021-03-15] MEDS: guaiFENesin/Dextromethorphan 100-10 MG/5 ML Soln 5 ML Cup PO PRN (22:39)
[2021-03-16] MEDS: Albuterol/Ipratropium 3.0-0.5 MG/3 ML Neb Soln NEB PRN ×4 (03:40→21:54)
[2021-03-16] MEDS: guaiFENesin/Dextromethorphan 100-10 MG/5 ML Soln 5 ML Cup PO PRN ×2 (03:58→12:48)
[2021-03-16] MEDS: Potassium Chloride 20 MEQ Tab.ER PO SCH (06:13)
[2021-03-16] MEDS: Pantoprazole 40 MG Tab.CR PO SCH (06:13)
[2021-03-16] MEDS: Primidone 50 MG Tab PO SCH ×2 (06:13→16:01)
[2021-03-16] MEDS: Heparin Sodium 5,000 Units/ML Vial SUBCUT SCH ×3 (06:15→20:15)
[2021-03-16] MEDS: Ferrous Sulfate 324 MG Tab.EC PO SCH (08:58)
[2021-03-16] MEDS: Docusate Sodium 100 MG Cap PO SCH (08:58)
[2021-03-16] MEDS: Amiodarone 200 MG Tab PO SCH (08:58)
[2021-03-16] MEDS: buPROPion 150 MG Tab.ER PO SCH (08:58)
[2021-03-16] MEDS: Metoprolol Tartrate 25 MG Tab PO SCH ×2 (08:58→20:16)
[2021-03-16] MEDS: Aspirin 81 MG Tab.EC PO SCH (08:59)
[2021-03-16] MEDS: prednisoLONE Acetate 1% Ophth Susp 5 ML Bottle EYERT SCH ×3 (08:59→20:17)
[2021-03-16] MEDS: Cholecalciferol (Vitamin D3) 25 MCG Tab PO SCH (08:59)
[2021-03-16] MEDS: Sodium Chloride 1 GM Tab PO SCH ×3 (08:59→20:16)
[2021-03-16] MEDS: Losartan 50 MG Tab PO SCH (08:59)
[2021-03-16] MEDS: Gabapentin 300 MG Cap PO SCH ×2 (08:59→20:16)
[2021-03-16] MEDS ORDERED: LACTOBACILLUS RHAMNOSUS GG PO SCH (09:00)
[2021-03-16] MEDS: Fluticasone Propionate Nasal Spray 16 GM Bottle NAS SCH ×2 (09:00→20:17)
[2021-03-16] MEDS ORDERED: Non-Formulary Medication 1 Each (Fexofenadine Hcl 60 MG Tablet) PO SCH (09:00)
[2021-03-16] MEDS ORDERED: buPROPion 150 MG Tab.SR PO SCH (09:00)
[2021-03-16] MEDS ORDERED: FOLIC ACID 0.4 MG PO SCH (09:00)
--- NOTE | 2021-03-16 12:21 | PCM.PN ---
- General Info Date of Service: 03/16/21 Admission Dx/Problem (Free Text): Admission Diagnosis/Problem Admission Diagnosis/Problem Pneumonia Subjective Update: Patient states she feels lousy today. She really is only concerned about her cough, in which she is not able to bring up any sputum. Denies any fever or chills. No overnight events. No new nursing concerns. Requiring 2 to 4 L of oxygen. MRSA screen is negative. - Patient Data Vitals - Most Recent: Last Vital Signs Temp 98.1 F 03/16/21 11:36 Pulse 62 03/16/21 11:36 Resp 20 03/16/21 11:36 BP 150/47 H 03/16/21 11:36 Pulse Ox 90 L 03/16/21 11:36 Weight - Most Recent: 143 lb 4.8 oz I&O - Last 24 Hours: Intake & Output 03/15/21 03/16/21 03/16/21 22:59 06:59 14:59 Intake Total 960 Output Total 1900 Balance -940 Lab Results Last 24 Hours: Laboratory Results - last 24 hr 03/15/21 03/15/21 03/15/21 Range/Units 12:10 12:10 12:10 WBC 17.03 H (3.98-10.04) K/mm3 RBC 3.06 L (3.98-5.22) M/mm3 Hgb 10.4 L D (11.2-15.7) gm/dl Hct 31.8 L (34.1-44.9) % MCV 103.9 H D (79.4-94.8) fl MCH 34.0 H (25.6-32.2) pg MCHC 32.7 (32.2-35.5) g/dl RDW Std Deviation 54.4 H (36.4-46.3) fL Plt Count 289 D (182-369) K/mm3 MPV 10.7 (9.4-12.3) fl Neut % (Auto) (34.0-71.1) % Lymph % (Auto) (19.3-51.7) % [place] % (Auto) (4.7-12.5) % Eos % (Auto) (0.7-5.8) Baso % (Auto) (0.1-1.2) % Neut # (Auto) (1.56-6.13) K/mm3 Lymph # (Auto) (1.18-3.74) K/mm3 [place] # (Auto) (0.24-0.36) K/mm3 Eos # (Auto) (0.04-0.36) K/mm3 Baso # (Auto) (0.01-0.08) K/mm3 Neutrophils % (Manual) 66 H (40-60) % Band Neutrophils % 4 (0-10) % Lymphocytes % (Manual) 22 (20-40) % Atypical Lymphs % 0 % Monocytes % (Manual) 6 (2-10) % Eosinophils % (Manual) 2 (0.7-5.8) % Basophils % (Manual) 0 L (0.1-1.2) Manual Slide Review Platelet Estimate Adequate Macrocytosis 2+ moderate Target Cells 1+ slight Tear Drop Cells 1+ slight RBC Morph Comment Not Reportable PT 11.0 (9.7-12.0) SECONDS INR 1.03 APTT 27.8 (21.7-31.4) SECONDS Puncture Site ABG pH (7.35-7.45) ABG pCO2 (35.0-45.0) mmHg ABG pO2 (80.0-100.0) mmHg ABG HCO3 (22.0-26.0) meq/L ABG O2 Saturation (96.0-97.0) % ABG Base Excess (-2-2.0) A-a Gradient mmHg O2 Delivery Device Oxygen Flow Rate FiO2 (21.00-100.00) % Blood Gas Comments Sodium 127 L (136-145) mEq/L Potassium 4.2 (3.5-5.1) mEq/L Chloride 89 L (98-107) mEq/L Carbon Dioxide 31 (21-32) mEq/L Anion Gap 11.2 (5-15) BUN 8 (7-18) mg/dL Creatinine 0.7 (0.55-1.02) mg/dL Est Cr Clr Drug Dosing TNP Estimated GFR (MDRD) > 60 (>60) mL/min BUN/Creatinine Ratio 11.4 L (14-18) Glucose 152 H (70-99) mg/dL Lactic Acid (0.4-2.0) mmol/L Calcium 7.8 L (8.5-10.1) mg/dL Magnesium 2.1 (1.8-2.4) mg/dL Total Bilirubin 0.5 (0.2-1.0) mg/dL AST 21 (15-37) U/L ALT 17 (14-59) U/L Alkaline Phosphatase 62 (46-116) U/L CK-MB (CK-2) 1.7 (0-3.6) ng/ml Troponin I < 0.017 (0.00-0.056) ng/mL NT-Pro-B Natriuret Pep (0-450) pg/mL Total Protein 7.4 (6.4-8.2) g/dl Albumin 3.4 (3.4-5.0) g/dl Globulin 4.0 gm/dL Albumin/Globulin Ratio 0.9 L (1-2) Urine Color (Yellow) Urine Appearance (Clear) Urine pH (5.0-8.0) Ur Specific [place] (1.005-1.030) Urine Protein (Negative) Urine Glucose (UA) (Negative) Urine Ketones (Negative) Urine Occult Blood (Negative) Urine Nitrite (Negative) Urine Bilirubin (Negative) Urine Urobilinogen (0.2-1.0) Ur Leukocyte Esterase (Negative) Urine RBC (0-5) /hpf Urine WBC (0-5) /hpf Ur Epithelial Cells (0-5) /hpf Urine Bacteria (FEW) /hpf Urine Mucus (FEW) /hpf SARS-CoV-2 RNA (IRMA) (NEGATIVE) MRSA (PCR) 03/15/21 03/15/21 03/15/21 Range/Units 12:10 12:10 12:19 WBC (3.98-10.04) K/mm3 RBC (3.98-5.22) M/mm3 Hgb (11.2-15.7) gm/dl Hct (34.1-44.9) % MCV (79.4-94.8) fl MCH (25.6-32.2) pg MCHC (32.2-35.5) g/dl RDW Std Deviation (36.4-46.3) fL Plt Count (182-369) K/mm3 MPV (9.4-12.3) fl Neut % (Auto) (34.0-71.1) % Lymph % (Auto) (19.3-51.7) % [place] % (Auto) (4.7-12.5) % Eos % (Auto) (0.7-5.8) Baso % (Auto) (0.1-1.2) % Neut # (Auto) (1.56-6.13) K/mm3 Lymph # (Auto) (1.18-3.74) K/mm3 [place] # (Auto) (0.24-0.36) K/mm3 Eos # (Auto) (0.04-0.36) K/mm3 Baso # (Auto) (0.01-0.08) K/mm3 Neutrophils % (Manual) (40-60) % Band Neutrophils % (0-10) % Lymphocytes % (Manual) (20-40) % Atypical Lymphs % % Monocytes % (Manual) (2-10) % Eosinophils % (Manual) (0.7-5.8) % Basophils % (Manual) (0.1-1.2) Manual Slide Review Platelet Estimate Macrocytosis Target Cells Tear Drop Cells RBC Morph Comment PT (9.7-12.0) SECONDS INR APTT (21.7-31.4) SECONDS Puncture Site Lt radial ABG pH 7.44 (7.35-7.45) ABG pCO2 45.4 H (35.0-45.0) mmHg ABG pO2 45.0 L (80.0-100.0) mmHg ABG HCO3 30.3 H (22.0-26.0) meq/L ABG O2 Saturation 77.8 L (96.0-97.0) % ABG Base Excess 5.8 H (-2-2.0) A-a Gradient 48 mmHg O2 Delivery Device Room air Oxygen Flow Rate 0.0 FiO2 21.00 (21.00-100.00) % Blood Gas Comments Pn Sodium (136-145) mEq/L Potassium (3.5-5.1) mEq/L Chloride (98-107) mEq/L Carbon Dioxide (21-32) mEq/L Anion Gap (5-15) BUN (7-18) mg/dL Creatinine (0.55-1.02) mg/dL Est Cr Clr Drug Dosing Estimated GFR (MDRD) (>60) mL/min BUN/Creatinine Ratio (14-18) Glucose (70-99) mg/dL Lactic Acid 1.9 (0.4-2.0) mmol/L Calcium (8.5-10.1) mg/dL Magnesium (1.8-2.4) mg/dL Total Bilirubin (0.2-1.0) mg/dL AST (15-37) U/L ALT (14-59) U/L Alkaline Phosphatase (46-116) U/L CK-MB (CK-2) (0-3.6) ng/ml Troponin I (0.00-0.056) ng/mL NT-Pro-B Natriuret Pep 3706 H (0-450) pg/mL Total Protein (6.4-8.2) g/dl Albumin (3.4-5.0) g/dl Globulin gm/dL Albumin/Globulin Ratio (1-2) Urine Color (Yellow) Urine Appearance (Clear) Urine pH (5.0-8.0) Ur Specific [place] (1.005-1.030) Urine Protein (Negative) Urine Glucose (UA) (Negative) Urine Ketones (Negative) Urine Occult Blood (Negative) Urine Nitrite (Negative) Urine Bilirubin (Negative) Urine Urobilinogen (0.2-1.0) Ur Leukocyte Esterase (Negative) Urine RBC (0-5) /hpf Urine WBC (0-5) /hpf Ur Epithelial Cells (0-5) /hpf Urine Bacteria (FEW) /hpf Urine Mucus (FEW) /hpf SARS-CoV-2 RNA (IRMA) (NEGATIVE) MRSA (PCR) 03/15/21 03/15/21 03/15/21 Range/Units 13:00 13:00 19:22 WBC (3.98-10.04) K/mm3 RBC (3.98-5.22) M/mm3 Hgb (11.2-15.7) gm/dl Hct (34.1-44.9) % MCV (79.4-94.8) fl MCH (25.6-32.2) pg MCHC (32.2-35.5) g/dl RDW Std Deviation (36.4-46.3) fL Plt Count (182-369) K/mm3 MPV (9.4-12.3) fl Neut % (Auto) (34.0-71.1) % Lymph % (Auto) (19.3-51.7) % [place] % (Auto) (4.7-12.5) % Eos % (Auto) (0.7-5.8) Baso % (Auto) (0.1-1.2) % Neut # (Auto) (1.56-6.13) K/mm3 Lymph # (Auto) (1.18-3.74) K/mm3 [place] # (Auto) (0.24-0.36) K/mm3 Eos # (Auto) (0.04-0.36) K/mm3 Baso # (Auto) (0.01-0.08) K/mm3 Neutrophils % (Manual) (40-60) % Band Neutrophils % (0-10) % Lymphocytes % (Manual) (20-40) % Atypical Lymphs % % Monocytes % (Manual) (2-10) % Eosinophils % (Manual) (0.7-5.8) % Basophils % (Manual) (0.1-1.2) Manual Slide Review Platelet Estimate Macrocytosis Target Cells Tear Drop Cells RBC Morph Comment PT (9.7-12.0) SECONDS INR APTT (21.7-31.4) SECONDS Puncture Site ABG pH (7.35-7.45) ABG pCO2 (35.0-45.0) mmHg ABG pO2 (80.0-100.0) mmHg ABG HCO3 (22.0-26.0) meq/L ABG O2 Saturation (96.0-97.0) % ABG Base Excess (-2-2.0) A-a Gradient mmHg O2 Delivery Device Oxygen Flow Rate FiO2 (21.00-100.00) % Blood Gas Comments Sodium (136-145) mEq/L Potassium (3.5-5.1) mEq/L Chloride (98-107) mEq/L Carbon Dioxide (21-32) mEq/L Anion Gap (5-15) BUN (7-18) mg/dL Creatinine (0.55-1.02) mg/dL Est Cr Clr Drug Dosing Estimated GFR (MDRD) (>60) mL/min BUN/Creatinine Ratio (14-18) Glucose (70-99) mg/dL Lactic Acid (0.4-2.0) mmol/L Calcium (8.5-10.1) mg/dL Magnesium (1.8-2.4) mg/dL Total Bilirubin (0.2-1.0) mg/dL AST (15-37) U/L ALT (14-59) U/L Alkaline Phosphatase (46-116) U/L CK-MB (CK-2) (0-3.6) ng/ml Troponin I (0.00-0.056) ng/mL NT-Pro-B Natriuret Pep (0-450) pg/mL Total Protein (6.4-8.2) g/dl Albumin (3.4-5.0) g/dl Globulin gm/dL Albumin/Globulin Ratio (1-2) Urine Color Yellow (Yellow) Urine Appearance Clear (Clear) Urine pH 7.0 (5.0-8.0) Ur Specific [place] 1.025 (1.005-1.030) Urine Protein Negative (Negative) Urine Glucose (UA) Negative (Negative) Urine Ketones Negative (Negative) Urine Occult Blood Negative (Negative) Urine Nitrite Negative (Negative) Urine Bilirubin Negative (Negative) Urine Urobilinogen 0.2 (0.2-1.0) Ur Leukocyte Esterase Negative (Negative) Urine RBC 0-5 (0-5) /hpf Urine WBC 0-5 (0-5) /hpf Ur Epithelial Cells 0-5 (0-5) /hpf Urine Bacteria Rare (FEW) /hpf Urine Mucus Not seen (FEW) /hpf SARS-CoV-2 RNA (IMRA) Negative (NEGATIVE) MRSA (PCR) Negative 03/16/21 03/16/21 Range/Units 05:58 05:58 WBC 21.75 H (3.98-10.04) K/mm3 RBC 2.83 L (3.98-5.22) M/mm3 Hgb 9.3 L (11.2-15.7) gm/dl Hct 29.7 L (34.1-44.9) % MCV 104.9 H (79.4-94.8) fl MCH 32.9 H (25.6-32.2) pg MCHC 31.3 L (32.2-35.5) g/dl RDW Std Deviation 55.1 H (36.4-46.3) fL Plt Count 272 (182-369) K/mm3 MPV 10.6 (9.4-12.3) fl Neut % (Auto) 31.9 L (34.0-71.1) % Lymph % (Auto) 8.3 L (19.3-51.7) % [place] % (Auto) 58.6 H (4.7-12.5) % Eos % (Auto) 0.9 (0.7-5.8) Baso % (Auto) 0.1 (0.1-1.2) % Neut # (Auto) 6.94 H (1.56-6.13) K/mm3 Lymph # (Auto) 1.81 (1.18-3.74) K/mm3 [place] # (Auto) 12.74 H (0.24-0.36) K/mm3 Eos # (Auto) 0.19 (0.04-0.36) K/mm3 Baso # (Auto) 0.03 (0.01-0.08) K/mm3 Neutrophils % (Manual) (40-60) % Band Neutrophils % (0-10) % Lymphocytes % (Manual) (20-40) % Atypical Lymphs % % Monocytes % (Manual) (2-10) % Eosinophils % (Manual) (0.7-5.8) % Basophils % (Manual) (0.1-1.2) Manual Slide Review Abnormal smear Platelet Estimate Macrocytosis Target Cells Tear Drop Cells RBC Morph Comment PT (9.7-12.0) SECONDS INR APTT (21.7-31.4) SECONDS Puncture Site ABG pH (7.35-7.45) ABG pCO2 (35.0-45.0) mmHg ABG pO2 (80.0-100.0) mmHg ABG HCO3 (22.0-26.0) meq/L ABG O2 Saturation (96.0-97.0) % ABG Base Excess (-2-2.0) A-a Gradient mmHg O2 Delivery Device Oxygen Flow Rate FiO2 (21.00-100.00) % Blood Gas Comments Sodium 133 L (136-145) mEq/L Potassium 3.1 L (3.5-5.1) mEq/L Chloride 95 L (98-107) mEq/L Carbon Dioxide 31 (21-32) mEq/L Anion Gap 10.1 (5-15) BUN 6 L (7-18) mg/dL Creatinine 0.5 L (0.55-1.02) mg/dL Est Cr Clr Drug Dosing 58.01 Estimated GFR (MDRD) > 60 (>60) mL/min BUN/Creatinine Ratio 12.0 L (14-18) Glucose 119 H (70-99) mg/dL Lactic Acid (0.4-2.0) mmol/L Calcium 7.7 L (8.5-10.1) mg/dL Magnesium (1.8-2.4) mg/dL Total Bilirubin (0.2-1.0) mg/dL AST (15-37) U/L ALT (14-59) U/L Alkaline Phosphatase (46-116) U/L CK-MB (CK-2) (0-3.6) ng/ml Troponin I (0.00-0.056) ng/mL NT-Pro-B Natriuret Pep (0-450) pg/mL Total Protein (6.4-8.2) g/dl Albumin (3.4-5.0) g/dl Globulin gm/dL Albumin/Globulin Ratio (1-2) Urine Color (Yellow) Urine Appearance (Clear) Urine pH (5.0-8.0) Ur Specific [place] (1.005-1.030) Urine Protein (Negative) Urine Glucose (UA) (Negative) Urine Ketones (Negative) Urine Occult Blood (Negative) Urine Nitrite (Negative) Urine Bilirubin (Negative) Urine Urobilinogen (0.2-1.0) Ur Leukocyte Esterase (Negative) Urine RBC (0-5) /hpf Urine WBC (0-5) /hpf Ur Epithelial Cells (0-5) /hpf Urine Bacteria (FEW) /hpf Urine Mucus (FEW) /hpf SARS-CoV-2 RNA (IRMA) (NEGATIVE) MRSA (PCR) Med Orders - Current: Current Medications Albuterol/Ipratropium (Albuterol/Ipratropium 3.0-0.5 Mg/3 Ml Neb Soln) 3 ml NEB Q4HRRT PRN PRN Reason: Shortness of Breath Last Admin: 03/16/21 09:41 Dose: 3 ml Documented by: Amiodarone HCl (Amiodarone 200 Mg Tab) 200 mg PO DAILY [facility] Last Admin: 03/16/21 08:58 Dose: 200 mg Documented by: Amlodipine Besylate (Amlodipine 5 Mg Tab) 5 mg PO BEDTIME [facility] Aspirin (Aspirin 81 Mg Tab.Ec) 81 mg PO DAILY [facility] Last Admin: 03/16/21 08:59 Dose: 81 mg Documented by: Bisacodyl (Bisacodyl 10 Mg Supp) 10 mg RECTAL DAILY PRN PRN Reason: Constipation Bupropion HCl (Bupropion 150 Mg Tab.Er) 150 mg PO DAILY [facility] Last Admin: 03/16/21 08:58 Dose: 150 mg Documented by: Cholecalciferol (Cholecalciferol (Vitamin D3) 25 Mcg Tab) 25 mcg PO DAILY [facility] Last Admin: 03/16/21 08:59 Dose: 25 mcg Documented by: Docusate Sodium (Docusate Sodium 100 Mg Cap) 100 mg PO DAILY [facility] Last Admin: 03/16/21 08:58 Dose: 100 mg Documented by: Ferrous Sulfate (Ferrous Sulfate 324 Mg Tab.Ec) 324 mg PO DAILY [facility] Last Admin: 03/16/21 08:58 Dose: 324 mg Documented by: Fluticasone Propionate (Fluticasone Propionate Nasal [place] 16 Gm Bottle) 0 gm LINDA BID [facility] Last Admin: 03/16/21 09:00 Dose: 1 spray Documented by: Gabapentin (Gabapentin 300 Mg Cap) 300 mg PO BID [facility] Last Admin: 03/16/21 08:59 Dose: 300 mg Documented by: Guaifenesin/Phenylephrine HCl (Guaifenesin/Dextromethorphan 100-10 Mg/5 Ml Soln 5 Ml Cup) 10 ml PO QID PRN PRN Reason: Cough Last Admin: 03/16/21 03:58 Dose: 10 ml Documented by: Heparin Sodium (Porcine) (Heparin Sodium 5,000 Units/Ml Vial) 5,000 units SUBCUT Q8H [facility] Last Admin: 03/16/21 06:15 Dose: 5,000 units Documented by: Cefepime HCl 1 gm/ Premix 50 mls @ 100 mls/hr IV Q24H [facility] Last Admin: 03/15/21 21:08 Dose: 100 mls/hr Documented by: Vancomycin HCl 1 gm/ Sodium (Chloride) 250 mls @ 250 mls/hr IV Q24H [facility] Losartan Potassium (Losartan 50 Mg Tab) 50 mg PO DAILY [facility] Last Admin: 03/16/21 08:59 Dose: 50 mg Documented by: Melatonin (Melatonin 3 Mg Tab) 6 mg PO BEDTIME [facility] Last Admin: 03/15/21 21:12 Dose: 6 mg Documented by: Metoprolol Tartrate (Metoprolol Tartrate 25 Mg Tab) 25 mg PO BID [facility] Last Admin: 03/16/21 08:58 Dose: 25 mg Documented by: Nitroglycerin (Nitroglycerin 0.4 Mg Tab.Sl) 0.4 mg SL ASDIRECTED PRN PRN Reason: Chest Pain Pantoprazole Sodium (Pantoprazole 40 Mg Tab.Cr) 40 mg PO DAILY@0700 [facility] Last Admin: 03/16/21 06:13 Dose: 40 mg Documented by: Potassium Chloride (Potassium Chloride 20 Meq Tab.Er) 20 meq PO WITHBREAKFAST [facility] Last Admin: 03/16/21 06:13 Dose: 20 meq Documented by: Prednisolone Acetate (Prednisolone Acetate 1% Ophth Susp 5 Ml Bottle) 0 ml EYERT TID [facility] Last Admin: 03/16/21 08:59 Dose: 1 drop Documented by: Primidone (Primidone 50 Mg Tab) 100 mg PO BIDMEALS [facility] Last Admin: 03/16/21 06:13 Dose: 100 mg Documented by: Senna/Docusate Sodium (Docusate Sodium/Sennosides 50-8.6 Mg Tab) 2 tab PO DAILY PRN PRN Reason: Constipation Sodium Chloride (Sodium Chloride 0.9% 10 Ml Syringe) 10 ml FLUSH ASDIRECTED PRN PRN Reason: Keep Vein Open Last Admin: 03/15/21 13:15 Dose: 10 ml Documented by: Sodium Chloride (Sodium Chloride 1 Gm Tab) 1 gm PO TID [facility] Last Admin: 03/16/21 08:59 Dose: 1 gm Documented by: Vancomycin HCl (Pharmacy To Dose - Vancomycin) 1 dose .XX ASDIRECTED PRN PRN Reason: RX TO DOSE VANCO Discontinued Medications Albuterol/Ipratropium (Albuterol/Ipratropium 3.0-0.5 Mg/3 Ml Neb Soln) 3 ml NEB Q4H PRN PRN Reason: Shortness Of Breath/wheezing Last Admin: 03/16/21 03:40 Dose: 3 ml Documented by: Amlodipine Besylate (Amlodipine 10 Mg Tab) 5 mg PO BEDTIME [facility] Last Admin: 03/15/21 21:12 Dose: 5 mg Documented by: Ceftriaxone Sodium (Ceftriaxone 2 Gm Advvial) Confirm Administered Dose 2 gm IV .STK-MED ONE Stop: 03/15/21 14:05 Last Admin: 03/15/21 14:22 Dose: Not Given Documented by: Furosemide (Furosemide 40 Mg/4 Ml Vial) 40 mg IVPUSH NOW ONE Stop: 03/15/21 12:14 Last Admin: 03/15/21 13:15 Dose: 40 mg Documented by: Ceftriaxone Sodium 2 gm/ (Sodium Chloride) 100 mls @ 200 mls/hr IV ONETIME ONE Stop: 03/15/21 14:22 Last Admin: 03/15/21 14:19 Dose: 200 mls/hr Documented by: Sodium Chloride (Normal Saline) 1,000 mls @ 50 mls/hr IV ASDIRECTED ROBE Last Admin: 03/15/21 20:04 Dose: 50 mls/hr Documented by: Vancomycin HCl 1.5 gm/ Sodium (Chloride) 500 mls @ 333.333 mls/hr IV ONETIME ONE Stop: 03/15/21 18:29 Last Admin: 03/15/21 17:24 Dose: 333.333 mls/hr Documented by: Non-Formulary Medication (Calcium Carbonate/Vitamin D3) 1 tab PO BIDMEALS [facility] Last Admin: 03/15/21 19:25 Dose: Not Given Documented by: Non-Formulary Medication (Fexofenadine Hcl) 60 mg PO DAILY [facility] Non-Formulary Medication (Folic Acid) 0.4 mg PO DAILY [facility] Non-Formulary Medication (Lactobacillus Rhamnosus Gg) 1 cap PO DAILY [facility] Non-Formulary Medication (Lovastatin [Mevacor]) 80 mg PO BEDTIME ROBE Non-Formulary Medication (Melatonin [Melatonin]) 5 mg PO BEDTIME ROBE - Exam Quality Assessment: Supplemental Oxygen, DVT Prophylaxis General: Alert, Cooperative, No Acute Distress Lungs: Normal Respiratory Effort, Crackles (Bibasilar). No: Rhonchi, Stridor, Wheezing Cardiovascular: Regular Rate GI/Abdominal Exam: Normal Bowel Sounds, Soft, Non-Tender Extremities: Normal Inspection, No Pedal Edema Skin: Warm, Dry Neurological: No New Focal Deficit - Patient Data Lab Results Last 24 hrs: Laboratory Results - last 24 hr 03/15/21 03/15/21 03/15/21 Range/Units 12:10 12:10 12:10 WBC 17.03 H (3.98-10.04) K/mm3 RBC 3.06 L (3.98-5.22) M/mm3 Hgb 10.4 L D (11.2-15.7) gm/dl Hct 31.8 L (34.1-44.9) % MCV 103.9 H D (79.4-94.8) fl MCH 34.0 H (25.6-32.2) pg MCHC 32.7 (32.2-35.5) g/dl RDW Std Deviation 54.4 H (36.4-46.3) fL Plt Count 289 D (182-369) K/mm3 MPV 10.7 (9.4-12.3) fl Neut % (Auto) (34.0-71.1) % Lymph % (Auto) (19.3-51.7) % [place] % (Auto) (4.7-12.5) % Eos % (Auto) (0.7-5.8) Baso % (Auto) (0.1-1.2) % Neut # (Auto) (1.56-6.13) K/mm3 Lymph # (Auto) (1.18-3.74) K/mm3 [place] # (Auto) (0.24-0.36) K/mm3 Eos # (Auto) (0.04-0.36) K/mm3 Baso # (Auto) (0.01-0.08) K/mm3 Neutrophils % (Manual) 66 H (40-60) % Band Neutrophils % 4 (0-10) % Lymphocytes % (Manual) 22 (20-40) % Atypical Lymphs % 0 % Monocytes % (Manual) 6 (2-10) % Eosinophils % (Manual) 2 (0.7-5.8) % Basophils % (Manual) 0 L (0.1-1.2) Manual Slide Review Platelet Estimate Adequate Macrocytosis 2+ moderate Target Cells 1+ slight Tear Drop Cells 1+ slight RBC Morph Comment Not Reportable PT 11.0 (9.7-12.0) SECONDS INR 1.03 APTT 27.8 (21.7-31.4) SECONDS Puncture Site ABG pH (7.35-7.45) ABG pCO2 (35.0-45.0) mmHg ABG pO2 (80.0-100.0) mmHg ABG HCO3 (22.0-26.0) meq/L ABG O2 Saturation (96.0-97.0) % ABG Base Excess (-2-2.0) A-a Gradient mmHg O2 Delivery Device Oxygen Flow Rate FiO2 (21.00-100.00) % Blood Gas Comments Sodium 127 L (136-145) mEq/L Potassium 4.2 (3.5-5.1) mEq/L Chloride 89 L (98-107) mEq/L Carbon Dioxide 31 (21-32) mEq/L Anion Gap 11.2 (5-15) BUN 8 (7-18) mg/dL Creatinine 0.7 (0.55-1.02) mg/dL Est Cr Clr Drug Dosing TNP Estimated GFR (MDRD) > 60 (>60) mL/min BUN/Creatinine Ratio 11.4 L (14-18) Glucose 152 H (70-99) mg/dL Lactic Acid (0.4-2.0) mmol/L Calcium 7.8 L (8.5-10.1) mg/dL Magnesium 2.1 (1.8-2.4) mg/dL Total Bilirubin 0.5 (0.2-1.0) mg/dL AST 21 (15-37) U/L ALT 17 (14-59) U/L Alkaline Phosphatase 62 (46-116) U/L CK-MB (CK-2) 1.7 (0-3.6) ng/ml Troponin I < 0.017 (0.00-0.056) ng/mL NT-Pro-B Natriuret Pep (0-450) pg/mL Total Protein 7.4 (6.4-8.2) g/dl Albumin 3.4 (3.4-5.0) g/dl Globulin 4.0 gm/dL Albumin/Globulin Ratio 0.9 L (1-2) Urine Color (Yellow) Urine Appearance (Clear) Urine pH (5.0-8.0) Ur Specific [place] (1.005-1.030) Urine Protein (Negative) Urine Glucose (UA) (Negative) Urine Ketones (Negative) Urine Occult Blood (Negative) Urine Nitrite (Negative) Urine Bilirubin (Negative) Urine Urobilinogen (0.2-1.0) Ur Leukocyte Esterase (Negative) Urine RBC (0-5) /hpf Urine WBC (0-5) /hpf Ur Epithelial Cells (0-5) /hpf Urine Bacteria (FEW) /hpf Urine Mucus (FEW) /hpf SARS-CoV-2 RNA (IRMA) (NEGATIVE) MRSA (PCR) 03/15/21 03/15/21 03/15/21 Range/Units 12:10 12:10 12:19 WBC (3.98-10.04) K/mm3 RBC (3.98-5.22) M/mm3 Hgb (11.2-15.7) gm/dl Hct (34.1-44.9) % MCV (79.4-94.8) fl MCH (25.6-32.2) pg MCHC (32.2-35.5) g/dl RDW Std Deviation (36.4-46.3) fL Plt Count (182-369) K/mm3 MPV (9.4-12.3) fl Neut % (Auto) (34.0-71.1) % Lymph % (Auto) (19.3-51.7) % [place] % (Auto) (4.7-12.5) % Eos % (Auto) (0.7-5.8) Baso % (Auto) (0.1-1.2) % Neut # (Auto) (1.56-6.13) K/mm3 Lymph # (Auto) (1.18-3.74) K/mm3 [place] # (Auto) (0.24-0.36) K/mm3 Eos # (Auto) (0.04-0.36) K/mm3 Baso # (Auto) (0.01-0.08) K/mm3 Neutrophils % (Manual) (40-60) % Band Neutrophils % (0-10) % Lymphocytes % (Manual) (20-40) % Atypical Lymphs % % Monocytes % (Manual) (2-10) % Eosinophils % (Manual) (0.7-5.8) % Basophils % (Manual) (0.1-1.2) Manual Slide Review Platelet Estimate Macrocytosis Target Cells Tear Drop Cells RBC Morph Comment PT (9.7-12.0) SECONDS INR APTT (21.7-31.4) SECONDS Puncture Site Lt radial ABG pH 7.44 (7.35-7.45) ABG pCO2 45.4 H (35.0-45.0) mmHg ABG pO2 45.0 L (80.0-100.0) mmHg ABG HCO3 30.3 H (22.0-26.0) meq/L ABG O2 Saturation 77.8 L (96.0-97.0) % ABG Base Excess 5.8 H (-2-2.0) A-a Gradient 48 mmHg O2 Delivery Device Room air Oxygen Flow Rate 0.0 FiO2 21.00 (21.00-100.00) % Blood Gas Comments Pn Sodium (136-145) mEq/L Potassium (3.5-5.1) mEq/L Chloride (98-107) mEq/L Carbon Dioxide (21-32) mEq/L Anion Gap (5-15) BUN (7-18) mg/dL Creatinine (0.55-1.02) mg/dL Est Cr Clr Drug Dosing Estimated GFR (MDRD) (>60) mL/min BUN/Creatinine Ratio (14-18) Glucose (70-99) mg/dL Lactic Acid 1.9 (0.4-2.0) mmol/L Calcium (8.5-10.1) mg/dL Magnesium (1.8-2.4) mg/dL Total Bilirubin (0.2-1.0) mg/dL AST (15-37) U/L ALT (14-59) U/L Alkaline Phosphatase (46-116) U/L CK-MB (CK-2) (0-3.6) ng/ml Troponin I (0.00-0.056) ng/mL NT-Pro-B Natriuret Pep 3706 H (0-450) pg/mL Total Protein (6.4-8.2) g/dl Albumin (3.4-5.0) g/dl Globulin gm/dL Albumin/Globulin Ratio (1-2) Urine Color (Yellow) Urine Appearance (Clear) Urine pH (5.0-8.0) Ur Specific [place] (1.005-1.030) Urine Protein (Negative) Urine Glucose (UA) (Negative) Urine Ketones (Negative) Urine Occult Blood (Negative) Urine Nitrite (Negative) Urine Bilirubin (Negative) Urine Urobilinogen (0.2-1.0) Ur Leukocyte Esterase (Negative) Urine RBC (0-5) /hpf Urine WBC (0-5) /hpf Ur Epithelial Cells (0-5) /hpf Urine Bacteria (FEW) /hpf Urine Mucus (FEW) /hpf SARS-CoV-2 RNA (IRMA) (NEGATIVE) MRSA (PCR) 03/15/21 03/15/21 03/15/21 Range/Units 13:00 13:00 19:22 WBC (3.98-10.04) K/mm3 RBC (3.98-5.22) M/mm3 Hgb (11.2-15.7) gm/dl Hct (34.1-44.9) % MCV (79.4-94.8) fl MCH (25.6-32.2) pg MCHC (32.2-35.5) g/dl RDW Std Deviation (36.4-46.3) fL Plt Count (182-369) K/mm3 MPV (9.4-12.3) fl Neut % (Auto) (34.0-71.1) % Lymph % (Auto) (19.3-51.7) % [place] % (Auto) (4.7-12.5) % Eos % (Auto) (0.7-5.8) Baso % (Auto) (0.1-1.2) % Neut # (Auto) (1.56-6.13) K/mm3 Lymph # (Auto) (1.18-3.74) K/mm3 [place] # (Auto) (0.24-0.36) K/mm3 Eos # (Auto) (0.04-0.36) K/mm3 Baso # (Auto) (0.01-0.08) K/mm3 Neutrophils % (Manual) (40-60) % Band Neutrophils % (0-10) % Lymphocytes % (Manual) (20-40) % Atypical Lymphs % % Monocytes % (Manual) (2-10) % Eosinophils % (Manual) (0.7-5.8) % Basophils % (Manual) (0.1-1.2) Manual Slide Review Platelet Estimate Macrocytosis Target Cells Tear Drop Cells RBC Morph Comment PT (9.7-12.0) SECONDS INR APTT (21.7-31.4) SECONDS Puncture Site ABG pH (7.35-7.45) ABG pCO2 (35.0-45.0) mmHg ABG pO2 (80.0-100.0) mmHg ABG HCO3 (22.0-26.0) meq/L ABG O2 Saturation (96.0-97.0) % ABG Base Excess (-2-2.0) A-a Gradient mmHg O2 Delivery Device Oxygen Flow Rate FiO2 (21.00-100.00) % Blood Gas Comments Sodium (136-145) mEq/L Potassium (3.5-5.1) mEq/L Chloride (98-107) mEq/L Carbon Dioxide (21-32) mEq/L Anion Gap (5-15) BUN (7-18) mg/dL Creatinine (0.55-1.02) mg/dL Est Cr Clr Drug Dosing Estimated GFR (MDRD) (>60) mL/min BUN/Creatinine Ratio (14-18) Glucose (70-99) mg/dL Lactic Acid (0.4-2.0) mmol/L Calcium (8.5-10.1) mg/dL Magnesium (1.8-2.4) mg/dL Total Bilirubin (0.2-1.0) mg/dL AST (15-37) U/L ALT (14-59) U/L Alkaline Phosphatase (46-116) U/L CK-MB (CK-2) (0-3.6) ng/ml Troponin I (0.00-0.056) ng/mL NT-Pro-B Natriuret Pep (0-450) pg/mL Total Protein (6.4-8.2) g/dl Albumin (3.4-5.0) g/dl Globulin gm/dL Albumin/Globulin Ratio (1-2) Urine Color Yellow (Yellow) Urine Appearance Clear (Clear) Urine pH 7.0 (5.0-8.0) Ur Specific [place] 1.025 (1.005-1.030) Urine Protein Negative (Negative) Urine Glucose (UA) Negative (Negative) Urine Ketones Negative (Negative) Urine Occult Blood Negative (Negative) Urine Nitrite Negative (Negative) Urine Bilirubin Negative (Negative) Urine Urobilinogen 0.2 (0.2-1.0) Ur Leukocyte Esterase Negative (Negative) Urine RBC 0-5 (0-5) /hpf Urine WBC 0-5 (0-5) /hpf Ur Epithelial Cells 0-5 (0-5) /hpf Urine Bacteria Rare (FEW) /hpf Urine Mucus Not seen (FEW) /hpf SARS-CoV-2 RNA (IRMA) Negative (NEGATIVE) MRSA (PCR) Negative 03/16/21 03/16/21 Range/Units 05:58 05:58 WBC 21.75 H (3.98-10.04) K/mm3 RBC 2.83 L (3.98-5.22) M/mm3 Hgb 9.3 L (11.2-15.7) gm/dl Hct 29.7 L (34.1-44.9) % MCV 104.9 H (79.4-94.8) fl MCH 32.9 H (25.6-32.2) pg MCHC 31.3 L (32.2-35.5) g/dl RDW Std Deviation 55.1 H (36.4-46.3) fL Plt Count 272 (182-369) K/mm3 MPV 10.6 (9.4-12.3) fl Neut % (Auto) 31.9 L (34.0-71.1) % Lymph % (Auto) 8.3 L (19.3-51.7) % [place] % (Auto) 58.6 H (4.7-12.5) % Eos % (Auto) 0.9 (0.7-5.8) Baso % (Auto) 0.1 (0.1-1.2) % Neut # (Auto) 6.94 H (1.56-6.13) K/mm3 Lymph # (Auto) 1.81 (1.18-3.74) K/mm3 [place] # (Auto) 12.74 H (0.24-0.36) K/mm3 Eos # (Auto) 0.19 (0.04-0.36) K/mm3 Baso # (Auto) 0.03 (0.01-0.08) K/mm3 Neutrophils % (Manual) (40-60) % Band Neutrophils % (0-10) % Lymphocytes % (Manual) (20-40) % Atypical Lymphs % % Monocytes % (Manual) (2-10) % Eosinophils % (Manual) (0.7-5.8) % Basophils % (Manual) (0.1-1.2) Manual Slide Review Abnormal smear Platelet Estimate Macrocytosis Target Cells Tear Drop Cells RBC Morph Comment PT (9.7-12.0) SECONDS INR APTT (21.7-31.4) SECONDS Puncture Site ABG pH (7.35-7.45) ABG pCO2 (35.0-45.0) mmHg ABG pO2 (80.0-100.0) mmHg ABG HCO3 (22.0-26.0) meq/L ABG O2 Saturation (96.0-97.0) % ABG Base Excess (-2-2.0) A-a Gradient mmHg O2 Delivery Device Oxygen Flow Rate FiO2 (21.00-100.00) % Blood Gas Comments Sodium 133 L (136-145) mEq/L Potassium 3.1 L (3.5-5.1) mEq/L Chloride 95 L (98-107) mEq/L Carbon Dioxide 31 (21-32) mEq/L Anion Gap 10.1 (5-15) BUN 6 L (7-18) mg/dL Creatinine 0.5 L (0.55-1.02) mg/dL Est Cr Clr Drug Dosing 58.01 Estimated GFR (MDRD) > 60 (>60) mL/min BUN/Creatinine Ratio 12.0 L (14-18) Glucose 119 H (70-99) mg/dL Lactic Acid (0.4-2.0) mmol/L Calcium 7.7 L (8.5-10.1) mg/dL Magnesium (1.8-2.4) mg/dL Total Bilirubin (0.2-1.0) mg/dL AST (15-37) U/L ALT (14-59) U/L Alkaline Phosphatase (46-116) U/L CK-MB (CK-2) (0-3.6) ng/ml Troponin I (0.00-0.056) ng/mL NT-Pro-B Natriuret Pep (0-450) pg/mL Total Protein (6.4-8.2) g/dl Albumin (3.4-5.0) g/dl Globulin gm/dL Albumin/Globulin Ratio (1-2) Urine Color (Yellow) Urine Appearance (Clear) Urine pH (5.0-8.0) Ur Specific [place] (1.005-1.030) Urine Protein (Negative) Urine Glucose (UA) (Negative) Urine Ketones (Negative) Urine Occult Blood (Negative) Urine Nitrite (Negative) Urine Bilirubin (Negative) Urine Urobilinogen (0.2-1.0) Ur Leukocyte Esterase (Negative) Urine RBC (0-5) /hpf Urine WBC (0-5) /hpf Ur Epithelial Cells (0-5) /hpf Urine Bacteria (FEW) /hpf Urine Mucus (FEW) /hpf SARS-CoV-2 RNA (IRMA) (NEGATIVE) MRSA (PCR) Result Diagrams: 03/16/21 05:58 03/16/21 05:58 Sepsis Event Note - Evaluation Sepsis Screening Result: No Definite Risk - Focused Exam Vital Signs: Vital Signs Temp Pulse Resp BP Pulse Ox Pulse Ox 03/16/21 11:36 98.1 F 62 20 150/47 H 90 L 03/16/21 09:43 90 L 03/16/21 08:59 141/95 H 03/16/21 08:58 75 141/95 H 03/16/21 08:19 75 141/95 H 92 L 03/16/21 04:03 97.9 F 66 20 145/80 H 91 L 03/16/21 03:40 95 - Problem List Review Problem List Initiated/Reviewed/Updated: Yes - My Orders Last 24 Hours: My Active Orders 03/15/21 14:20 Patient Status [ADT] Routine Oxygen Therapy [RC] PRN Up With Assistance [RC] 0900 VTE/DVT Education [RC] Resuscitation Status Routine 03/15/21 14:22 Pulse Oximetry [RC] PRN 03/15/21 16:21 Docusate Sodium/Sennosides [Senna Plus] 2 tab PO DAILY PRN Nitroglycerin [Nitrostat] 0.4 mg SL ASDIRECTED PRN bisacodyL [Dulcolax] 10 mg RECTAL DAILY PRN 03/15/21 16:30 Pharmacy to Dose - Vancomycin 1 dose .XX ASDIRECTED PRN 03/15/21 16:32 Albuterol/Ipratropium [DuoNeb 3.0-0.5 MG/3 ML] 3 ml NEB Q4HRRT PRN 03/15/21 16:33 RT Aerosol Therapy [RC] .PRN 03/15/21 Dinner Regular Diet [DIET] 03/15/21 17:30 Primidone [Mysoline] 100 mg PO BIDMEALS 03/15/21 18:12 Incentive Spirometry [RT Incentive Spirometry] [RC] ASDIRECTED RT Chest Physiotherapy [RC] ASDIRECTED 03/15/21 21:00 Cefepime [Maxipime in D5W 1 GM/50 ML] 1 gm Premix Bag 1 bag IV Q24H Fluticasone Propionate [Flonase] 0 gm LINDA BID Gabapentin [Neurontin] 300 mg PO BID Heparin Sodium 5,000 units SUBCUT Q8H Melatonin 6 mg PO BEDTIME Metoprolol Tartrate [Lopressor] 25 mg PO BID Sodium Chloride 1 gm PO TID prednisoLONE acetate [Pred Forte 1% Ophth Susp] 0 ml EYERT TID 03/15/21 22:27 Dextromethorphan/guaiFENesin [Robitussin DM] 10 ml PO QID PRN 03/16/21 07:00 Pantoprazole [ProTONIX] 40 mg PO DAILY@0700 Potassium Chloride [Klor-Con M20] 20 meq PO WITHBREAKFAST 03/16/21 09:00 Amiodarone [Cordarone] 200 mg PO DAILY Aspirin [Halfprin] 81 mg PO DAILY Cholecalciferol (Vitamin D3) [Vitamin D3] 25 mcg PO DAILY Docusate Sodium [Colace] 100 mg PO DAILY Ferrous Sulfate 324 mg PO DAILY Losartan [Cozaar] 50 mg PO DAILY buPROPion [Wellbutrin XL] 150 mg PO DAILY 03/16/21 10:20 RESPIRATORY CULT [MREF] Routine 03/16/21 16:00 Vancomycin [Vancocin] 1 gm Sodium Chloride 0.9% [Normal Saline (AdvBag)] 250 ml IV Q24H 03/16/21 21:00 amLODIPine [Norvasc] 5 mg PO BEDTIME 03/17/21 06:00 BASIC METABOLIC PANEL,BMP [CHEM] DAILY CBC WITH AUTO DIFF [HEME] DAILY 03/18/21 06:00 BASIC METABOLIC PANEL,BMP [CHEM] DAILY CBC WITH AUTO DIFF [HEME] DAILY 03/19/21 06:00 BASIC METABOLIC PANEL,BMP [CHEM] DAILY CBC WITH AUTO DIFF [HEME] DAILY 03/19/21 07:00 CBC W/O DIFF,HEMOGRAM [HEME] MOTH@69903/20/21 06:00 BASIC METABOLIC PANEL,BMP [CHEM] DAILY CBC WITH AUTO DIFF [HEME] DAILY 03/23/21 07:00 CBC W/O DIFF,HEMOGRAM [HEME] MOTH@69903/26/21 07:00 CBC W/O DIFF,HEMOGRAM [HEME] MOTH@69903/30/21 07:00 CBC W/O DIFF,HEMOGRAM [HEME] MOTH@69904/02/21 07:00 CBC W/O DIFF,HEMOGRAM [HEME] MOTH@699 - Plan Plan:: 85-year-old female with a past medical history as listed above, which includes prolonged hospitalization for COVID-19 and a prolonged rehab stay who presents to the [facility] emergency department with hypoxia, leukocytosis, and developing right lower lobe pneumonia. 1. Acute on chronic hypoxic respiratory failure. Secondary to healthcare associated pneumonia. Respiratory therapy consult. I have asked for deep suctioning today. Sample able to be obtained. This has been sent to the lab for culture. DuoNebs every 4 hours. Incentive spirometry encouraged. Goal would be to wean down to 2.5 L which would be where she would be at baseline at home. Certainly not in distress at current time. 2. Right lower lobe pneumonia without sepsis. We will treat empirically with cefepime. Vancomycin discontinued as MRSA screen is negative. Sputum culture pending from deep suction. We will monitor for fever. Plan as above as per supplemental oxygen and respiratory therapy assessment and treatments. 3. Chronic congestive heart failure; otherwise unspecified. We will need to get records from [place] regarding her ejection fraction. Monitor volume status. Diurese as necessary. Mildly elevated BNP. 4. History of atrial fibrillation not on systemic anticoagulation. Patient is high risk which is likely the reason why she is not on systemic anticoagulation. Continue all home cardiac medications at regular dose. 5. History of hypertension. Again, continue all home cardiac medications regular dose. 6. Status post splenectomy. Continue empiric antibiotics as mentioned above. 7. Hypercholesterolemia. Continue statin therapy. 8. History of coronary artery disease. Continue antiplatelets, statin and all cardiac medications at regular dose. All other medical comorbidities are nonactive conditions and she will continue her home medications at regular dose. CODE STATUS: DNR/DNI. DVT prophylaxis with heparin subcu.
[2021-03-16] MEDS: Potassium Chloride 10 MEQ in Premix Bag 1 BAG IV SCH ×4 (12:46→17:47)
[2021-03-16] MEDS: Cefepime 1 GM in Premix Bag 1 BAG IV SCH (20:01)
[2021-03-16] MEDS: Melatonin 3 MG Tab PO SCH (20:16)
[2021-03-16] MEDS ORDERED: amLODIPine 5 MG Tab PO SCH (21:00)
[2021-03-16] MEDS ORDERED: Benzonatate 100 MG Cap PO PRN (22:24)
[2021-03-17] MEDS: Heparin Sodium 5,000 Units/ML Vial SUBCUT SCH (04:08)
[2021-03-17] MEDS ORDERED: Acetaminophen 325 MG Tab PO PRN (04:16)
[2021-03-17] MEDS: Albuterol/Ipratropium 3.0-0.5 MG/3 ML Neb Soln NEB PRN ×2 (05:59→09:41)
[2021-03-17] MEDS: Primidone 50 MG Tab PO SCH (06:15)
[2021-03-17] MEDS: Pantoprazole 40 MG Tab.CR PO SCH (06:15)
[2021-03-17] MEDS: Potassium Chloride 20 MEQ Tab.ER PO SCH (06:15)
--- NOTE | 2021-03-17 07:47 | CR ---
Chest: Portable view of the chest was obtained. Comparison: Prior chest x-ray of 03/15/21. Increasing density is seen adjacent to the left mid hilar region as a minimal change from prior study. Slight increase in density within the left base is also noted. Lungs otherwise show no definite acute parenchymal change. Heart size and mediastinum appear within normal limits for portable technique. Scoliosis is noted within the spine. Osteopenia is noted. Impression: 1. Increasing density within the left midlung and left lower lung. Please correlate if patient has symptoms of worsening pneumonia. 2. Other portions of the portable chest x-ray are stable from prior exam. Diagnostic code #3
[2021-03-17] MEDS: Docusate Sodium 100 MG Cap PO SCH (08:38)
[2021-03-17] MEDS: Aspirin 81 MG Tab.EC PO SCH (08:39)
[2021-03-17] MEDS: buPROPion 150 MG Tab.ER PO SCH (08:39)
[2021-03-17] MEDS: Cholecalciferol (Vitamin D3) 25 MCG Tab PO SCH (08:42)
[2021-03-17] MEDS: Metoprolol Tartrate 25 MG Tab PO SCH (08:42)
[2021-03-17] MEDS: Amiodarone 200 MG Tab PO SCH (08:42)
[2021-03-17] MEDS: Ferrous Sulfate 324 MG Tab.EC PO SCH (08:47)
[2021-03-17] MEDS: Losartan 50 MG Tab PO SCH (08:47)
[2021-03-17] MEDS: Gabapentin 300 MG Cap PO SCH (08:48)
[2021-03-17] MEDS: prednisoLONE Acetate 1% Ophth Susp 5 ML Bottle EYERT SCH (08:49)
[2021-03-17] MEDS: Sodium Chloride 1 GM Tab PO SCH (08:49)
[2021-03-17 08:52] VITALS: BP 123/68
[2021-03-17] MEDS: Fluticasone Propionate Nasal Spray 16 GM Bottle NAS SCH (08:52)
--- NOTE | 2021-03-17 10:13 | PCM.DCSUM1 ---
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 Dose: 100 mls/hr Documented by: Non-Formulary Medication (Calcium Carbonate/Vitamin D3) 1 tab PO BIDMEALS [facility] Last Admin: 03/15/21 19:25 Dose: Not Given Documented by: Non-Formulary Medication (Fexofenadine Hcl) 60 mg PO DAILY [facility] Non-Formulary Medication (Folic Acid) 0.4 mg PO DAILY [facility] Non-Formulary Medication (Lactobacillus Rhamnosus Gg) 1 cap PO DAILY [facility] Non-Formulary Medication (Lovastatin [Mevacor]) 80 mg PO BEDTIME [facility] Non-Formulary Medication (Melatonin [Melatonin]) 5 mg PO BEDTIME RO[facility] Vancomycin HCl (Pharmacy To Dose - Vancomycin) 1 dose .XX ASDIRECTED PRN PRN Reason: RX TO DOSE VANCO - Exam Quality Assessment: Reports: Supplemental Oxygen, DVT Prophylaxis General: Reports: Alert, Oriented, No Acute Distress Neck: Reports: Supple Lungs: Reports: Decreased Breath Sounds, Rales (Bibasilar rales). Denies: Stridor, Wheezing Cardiovascular: Reports: Regular Rate GI/Abdominal Exam: Normal Bowel Sounds, Soft, Non-Tender, No Distention Extremities: Normal Inspection, No Pedal Edema Skin: Reports: Warm, Dry, Intact Neurological: Reports: Normal Speech
[2021-03-17 13:08] VITALS: PULSE 61
== END 2021-03-17 10:41 | DRG 193 ==
LOC: JD.ED 11:55 → JD.MS 14:20
PROVIDERS: ADMIT Hospitalist; ATTEND Hospitalist
DX: J18.9 Pneumonia, unspecified organism (principal); J96.21 Acute and chronic respiratory failure with hypoxia; I11.9 Hypertensive heart disease without heart failure; I50.9 Heart failure, unspecified; I48.91 Unspecified atrial fibrillation; D72.829 Elevated white blood cell count, unspecified; I11.0 Hypertensive heart disease with heart failure; E78.00 Pure hypercholesterolemia, unspecified; I25.10 Atherosclerotic heart disease of native coronary artery without angina pectoris; H54.7 Unspecified visual loss; J44.9 Chronic obstructive pulmonary disease, unspecified; I25.2 Old myocardial infarction; G47.30 Sleep apnea, unspecified; G89.29 Other chronic pain; M54.9 Dorsalgia, unspecified; M19.90 Unspecified osteoarthritis, unspecified site; F41.9 Anxiety disorder, unspecified; K21.9 Gastro-esophageal reflux disease without esophagitis; Z88.1 Allergy status to other antibiotic agents; Z96.659 Presence of unspecified artificial knee joint; Z98.890 Other specified postprocedural states; Z79.02 Long term (current) use of antithrombotics/antiplatelets; Z91.040 Latex allergy status; Z88.8 Allergy status to other drugs, medicaments and biological substances; Z79.82 Long term (current) use of aspirin; Z79.899 Other long term (current) drug therapy; Z85.828 Personal history of other malignant neoplasm of skin; Z98.41 Cataract extraction status, right eye; Z86.19 Personal history of other infectious and parasitic diseases; Z20.822 Contact with and (suspected) exposure to COVID-19
CPT/HCPCS: 36415; 36600; 71045; 80053; 81001; 82553; 82803; 83605; 83735; 83880; 84484; 85007; 85027; 85610; 85730; 87040 ×2; 93005; 94640; 94762; J0696; J1940; U0002; 80048; 85025; 87070; 87205; 87641; 93010; 94667; 94668; 94761; 96374; 96375; 99223; 99233; 99239; 99285; 99285-25; A9270-GY; J0692; J1644; J3370; J3480; J7030; J7040; J7620-GY

== ENCOUNTER 2021-04-22 02:45 | Emergency (ER) | payer MEDICARE, BC ==
[2021-04-22 02:54] VITALS: BP 165/71; PULSE 80
--- NOTE | 2021-04-22 03:27 | EDM.PDOC ---
ED HPI GENERAL MEDICAL PROBLEM - General Chief Complaint: Respiratory Problem Stated Complaint: [facility] Time Seen by Provider: 04/22/21 02:55 Source of Information: Reports: Patient History Limitations: Reports: No Limitations - History of Present Illness INITIAL COMMENTS - FREE TEXT/NARRATIVE: Mrs. Lamar is a very pleasant 85-year-old woman who is now brought to the ED by EMS after she developed dyspnea on exertion when she got up around 01:30 to 02:00 this morning in order to use the restroom. She states that she was wheezing. She states that she took an inhalation of her MDI, that she thought was albuterol, but we have since learned was Spiriva, which did not help. When EMS arrived, they treated her with an albuterol neb, which resolved her symptom s. By the time she arrived to the ED, she was feeling completely back to normal. The patient states that she has had similar symptoms in the past, but that they are rare. She does not even recall the last time that she had an asthma exacerbation. While the patient kept insisting that it was an albuterol MDI that she used, the MDI on the counter is Spiriva. The patient stated that this morning was the first time that she has used it since she bought it about 3 months ago. She does not have a spacer chamber. The patient states that she had COVID-19 in July 2020, and that she has been on 1 L of supplemental oxygen per nasal cannula during the day and 2 L of supplemental oxygen per nasal cannula at night, ever since. Here in the ED this morning, the patient's initial BP is found to be elevated at 165/71, with slight tachypnea of 25 rpm. She is afebrile, saturating 91% on 1 L of oxygen per nasal cannula. She appears to be comfortable, in no acute distress. Prior to this morning, the patient denies having a recent fever, chills, sore throat, ear pain, nasal or sinus congestion, cough, dyspnea, chest pain, palpitations, nausea, vomiting, constipation, diarrhea, abdominal pain, urinary symptoms, recent weight gain or weight loss, recent bloody bowel movements or black bowel movements, recent joint aches, headaches, or rashes. The patient's PCP is Dr. Tuan Koo. She has not received a COVID vaccination. - Related Data Allergies Allergy/AdvReac Type Severity Reaction Status Date / Time latex Allergy Rash Verified 04/22/21 02:54 atorvastatin calcium AdvReac Muscle Verified 04/22/21 02:54 [From Lipitor] Aches doxycycline AdvReac Vomiting Verified 04/22/21 02:54 rosuvastatin calcium AdvReac Muscle Verified 04/22/21 02:54 [From Crestor] Aches simvastatin [From Zocor] AdvReac Muscle Verified 04/22/21 02:54 Aches Home Meds: Home Meds Aspirin [Low Dose Aspirin EC] 81 mg PO DAILY 02/27/14 [History] Ubidecarenone [Coenzyme Q10] 100 mg PO DAILY 02/27/14 [History] Cholecalciferol (Vitamin D3) [Vitamin D3] 1,000 units PO DAILY 10/11/14 [History] Vitamin B Complex [B Complex] 1 tab PO DAILY 03/28/15 [History] Albuterol [Ventolin HFA] 2 puff INH Q6H PRN 11/18/17 [History] Gabapentin [Neurontin] 300 mg PO BID 11/18/17 [History] Nitroglycerin 0.4 mg SL ASDIRECTED PRN 11/18/17 [History] Lovastatin [Mevacor] 80 mg PO BEDTIME 11/21/17 [History] Fluticasone Propionate [Flonase] 1 spray LINDA BID 08/04/20 [History] Furosemide [Lasix] 20 mg PO DAILY 08/04/20 [History] Lactobacillus Rhamnosus GG [Culturelle] 1 cap PO DAILY 08/04/20 [History] Primidone [Mysoline] 100 mg PO BID 08/04/20 [History] Acetaminophen [Tylenol 8 Hour] 650 mg PO BID PRN 03/15/21 [History] Amiodarone [Cordarone] 200 mg PO DAILY 03/15/21 [History] Bisacodyl [Laxative Suppository] 10 mg RECTAL DAILY PRN 03/15/21 [History] Calcium Carbonate/Vitamin D3 [Calcium 600-Vit D3 400 Tablet] 1 tab PO BIDMEALS 03/15/21 [History] Cefdinir [Omnicef] 30 mg PO BID 03/15/21 [History] Denosumab [Prolia] 60 mg IM ASDIRECTED 03/15/21 [History] Docusate Sodium [Colace] 100 mg PO DAILY 03/15/21 [History] Docusate Sodium/Sennosides [Senna Plus] 2 tab PO DAILY PRN 03/15/21 [History] Ferrous Sulfate 325 mg PO DAILY 03/15/21 [History] Fexofenadine HCl [Anjali Allergy] 60 mg PO DAILY 03/15/21 [History] Folic Acid 0.4 mg PO DAILY 03/15/21 [History] Losartan [Cozaar] 50 mg PO DAILY 03/15/21 [History] Melatonin 5 mg PO BEDTIME 03/15/21 [History] Menthol [Biofreeze] 1 applic TOP Q2HR PRN 03/15/21 [History] Menthol/Methyl Salicylate [Icy Hot] 1 applic TOP Q3HR PRN 03/15/21 [History] Metoprolol Tartrate [Lopressor] 25 mg PO BID 03/15/21 [History] Non-Formulary Medication [NF Drug] 400 mcg PO DAILY 03/15/21 [History] Omeprazole 40 mg PO DAILY 03/15/21 [History] Potassium Chloride [Klor-Con M20] 20 meq PO WITHBREAKFAST 03/15/21 [History] Prednisolone Acetate/Pf [Prednisolone Acet 1% Eye Drop] 1 drop EYERT TID 03/15/21 [History] Prevagen. 1 tab PO DAILY 03/15/21 [History] Sodium Chloride 1 g PO DAILY 03/15/21 [History] Tiotropium [place] [Spiriva Respimat] 2 puff INH DAILY 03/15/21 [History] amLODIPine Besylate [Norvasc] 5 mg PO BEDTIME 03/15/21 [History] buPROPion HCL [Wellbutrin Xl] 150 mg PO DAILY 03/16/21 [History] Cefepime [Maxipime in D5W 1 GM/50 ML] 1 gm IV Q24H bag 03/17/21 [Rx] Past Medical History HEENT History: Reports: Impaired Vision (wears glasses) Cardiovascular History: Reports: Afib (paroxysmal), CAD, High Cholesterol, Hypertension, [place] (2009) Respiratory History: Reports: Asthma, Sleep Apnea (untreated) Gastrointestinal History: Reports: GERD Musculoskeletal History: Reports: Fracture (right foot), Osteoarthritis, Other (See Below) (Spinal stenosis) Neurological History: Reports: Other (See Below) (Essential tremor) Psychiatric History: Reports: Anxiety 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 - Infectious Disease History Infectious Disease History: Reports: Chicken Pox, Measles, Novel Coronavirus (Jul 2020), Shingles, Other (See Below) (Smallpox) - Past Surgical History HEENT Surgical History: Reports: Cataract Surgery (right only) Other HEENT Surgeries/Procedures: to right eye Cardiovascular Surgical History: Reports: Coronary Artery Stent (x 2009), Other (See Below) (Coronary angiogram x 2009) GI Surgical History: Reports: Lysis of Adhesions, Other (See Below) (Splenectomy 1989) Musculoskeletal Surgical History: Reports: Knee Replacement (right) Social & Family History - Tobacco Use Tobacco Use Status *Q: Never Tobacco User Second Hand Smoke Exposure: No - Caffeine Use Caffeine Use: Reports: None - Alcohol Use Alcohol Use History: Yes Alcohol Use Frequency: Rarely - Recreational Drug Use Recreational Drug Use: No - Living Situation & Occupation Living situation: Reports: , Alone Occupation: Retired ED ROS GENERAL - Review of Systems Review Of Systems: Comprehensive ROS is negative, except as noted in HPI. Musculoskeletal: Reports: Back Pain (chronic) ED EXAM, GENERAL - Physical Exam Exam: See Below Exam Limited By: No Limitations General Appearance: Alert, WD/WN, No Apparent Distress Eye Exam: Bilateral Eye: EOMI, Normal Inspection Ears: Normal External Exam, Hearing Grossly Normal Nose: Normal Inspection Throat/Mouth: Normal Inspection, Normal Lips, Normal Voice, No Airway Compromise Head: Atraumatic, Normocephalic Neck: Normal Inspection, Full Range of Motion Respiratory/Chest: No Respiratory Distress, Lungs Clear, Normal Breath Sounds, No Accessory Muscle Use. No: Decreased Breath Sounds, Crackles, Rales, Wheezing, Stridor, Prolonged Expiration Cardiovascular: Normal Peripheral Pulses, Regular Rate, Rhythm, No Gallop, No JVD, No Murmur, No Rub Peripheral Pulses: 3+: Radial (L), Radial (R) GI/Abdominal: Normal Bowel Sounds, Soft, Non-Tender, No Organomegaly, No Distention, No Abnormal Bruit, No Mass Back Exam: Normal Inspection, Full Range of Motion, NT Extremities: Normal Inspection, Normal Range of Motion, Normal Capillary Refill Neurological: Alert, Oriented, Normal Cognition, No Motor/Sensory Deficits Psychiatric: Normal Affect Skin Exam: Warm, Dry, Intact, Normal Color, No Rash Course - Vital Signs Last Recorded V/S: Last Vital Signs Temp 36.8 C 04/22/21 02:48 Pulse 80 04/22/21 02:48 Resp 25 H 04/22/21 02:48 BP 165/71 H 04/22/21 02:48 Pulse Ox 93 L 04/22/21 03:50 - Orders/Labs/Meds Orders: Active Orders 24 hr Category Date Time Status RT Aerosol Therapy [RC] ASDIRECTED Care 04/22/21 03:50 Active Ang Chest [CT] Stat Exams 04/22/21 05:21 Taken Chest 2V [CR] Stat Exams 04/22/21 03:47 Taken Labs: Laboratory Tests 04/22/21 04/22/21 04/22/21 Range/Units 02:50 02:50 02:50 WBC 14.60 H (3.98-10.04) K/mm3 RBC 2.89 L (3.98-5.22) M/mm3 Hgb 9.7 L (11.2-15.7) gm/dl Hct 31.1 L (34.1-44.9) % MCV 107.6 H (79.4-94.8) fl MCH 33.6 H (25.6-32.2) pg MCHC 31.2 L (32.2-35.5) g/dl RDW Std Deviation 58.3 H (36.4-46.3) fL Plt Count 358 D (182-369) K/mm3 MPV 11.6 (9.4-12.3) fl Neut % (Auto) 30.3 L (34.0-71.1) % Lymph % (Auto) 19.0 L (19.3-51.7) % [place] % (Auto) 48.2 H (4.7-12.5) % Eos % (Auto) 2.1 (0.7-5.8) Baso % (Auto) 0.2 (0.1-1.2) % Neut # (Auto) 4.43 (1.56-6.13) K/mm3 Lymph # (Auto) 2.77 (1.18-3.74) K/mm3 [place] # (Auto) 7.04 H (0.24-0.36) K/mm3 Eos # (Auto) 0.30 (0.04-0.36) K/mm3 Baso # (Auto) 0.03 (0.01-0.08) K/mm3 Manual Slide Review Abnormal smear D-Dimer, Quantitative 2.06 H (0.19-0.50) mg/L Sodium 140 D (136-145) mEq/L Potassium 3.8 (3.5-5.1) mEq/L Chloride 101 (98-107) mEq/L Carbon Dioxide 33 H (21-32) mEq/L Anion Gap 9.8 (5-15) BUN 9 (7-18) mg/dL Creatinine 0.6 (0.55-1.02) mg/dL Est Cr Clr Drug Dosing 48.34 mL/min Estimated GFR (MDRD) > 60 (>60) mL/min BUN/Creatinine Ratio 15.0 (14-18) Glucose 119 H (70-99) mg/dL Calcium 8.7 (8.5-10.1) mg/dL Total Bilirubin 0.3 (0.2-1.0) mg/dL AST 23 (15-37) U/L ALT 17 (14-59) U/L Alkaline Phosphatase 58 (46-116) U/L Troponin I (0.00-0.056) ng/mL C-Reactive Protein 12.3 H* (<1.0) mg/dL NT-Pro-B Natriuret Pep (0-450) pg/mL Total Protein 7.1 (6.4-8.2) g/dl Albumin 3.2 L (3.4-5.0) g/dl Globulin 3.9 gm/dL Albumin/Globulin Ratio 0.8 L (1-2) SARS-CoV-2 RNA (IRMA) (NEGATIVE) 04/22/21 04/22/21 04/22/21 Range/Units 02:50 02:50 04:00 WBC (3.98-10.04) K/mm3 RBC (3.98-5.22) M/mm3 Hgb (11.2-15.7) gm/dl Hct (34.1-44.9) % MCV (79.4-94.8) fl MCH (25.6-32.2) pg MCHC (32.2-35.5) g/dl RDW Std Deviation (36.4-46.3) fL Plt Count (182-369) K/mm3 MPV (9.4-12.3) fl Neut % (Auto) (34.0-71.1) % Lymph % (Auto) (19.3-51.7) % [place] % (Auto) (4.7-12.5) % Eos % (Auto) (0.7-5.8) Baso % (Auto) (0.1-1.2) % Neut # (Auto) (1.56-6.13) K/mm3 Lymph # (Auto) (1.18-3.74) K/mm3 [place] # (Auto) (0.24-0.36) K/mm3 Eos # (Auto) (0.04-0.36) K/mm3 Baso # (Auto) (0.01-0.08) K/mm3 Manual Slide Review D-Dimer, Quantitative (0.19-0.50) mg/L Sodium (136-145) mEq/L Potassium (3.5-5.1) mEq/L Chloride (98-107) mEq/L Carbon Dioxide (21-32) mEq/L Anion Gap (5-15) BUN (7-18) mg/dL Creatinine (0.55-1.02) mg/dL Est Cr Clr Drug Dosing mL/min Estimated GFR (MDRD) (>60) mL/min BUN/Creatinine Ratio (14-18) Glucose (70-99) mg/dL Calcium (8.5-10.1) mg/dL Total Bilirubin (0.2-1.0) mg/dL AST (15-37) U/L ALT (14-59) U/L Alkaline Phosphatase (46-116) U/L Troponin I < 0.017 (0.00-0.056) ng/mL C-Reactive Protein (<1.0) mg/dL NT-Pro-B Natriuret Pep 4687 H (0-450) pg/mL Total Protein (6.4-8.2) g/dl Albumin (3.4-5.0) g/dl Globulin gm/dL Albumin/Globulin Ratio (1-2) SARS-CoV-2 RNA (IRMA) Negative (NEGATIVE) Meds: Medications Discontinued Medications Generic Name Dose Route Start Last Admin Trade Name Freq PRN Reason Stop Dose Admin Albuterol/Ipratropium 3 ml 08/18/21 03:50 04/22/21 04:07 Albuterol/Ipratropium 3.0-0.5 Mg/3 Ml Neb Soln NEB 04/22/21 03:51 3 ml ONETIME ONE Administration Furosemide 40 mg 04/22/21 05:14 04/22/21 06:40 Furosemide 40 Mg Tab PO 04/22/21 05:15 40 mg ONETIME ONE Administration - Re-Assessments/Exams Free Text/Narrative Re-Assessment/Exam: 04/22/21 03:21 As above, the patient felt some dyspnea on exertion with wheezing around 01:30 to 02:00, when she got up to use the restroom. She took an inhalation of Spiriva, which she did not help. She called EMS, who gave her an albuterol neb, which resolved her symptoms. On examination, her lungs are clear, with no wheezing. The patient repeatedly stated that she does not have Spiriva, that she has albuterol, but there is a Spiriva MDI on the counter that the patient acknowledges is hers. She cannot read the writing on it without her glasses, but it is in fact Spiriva. The patient states that tonight was the first time that she has ever used it since she acquired it 3 months ago. Of course, Spiriva would not treat an asthma exacerbation, but albuterol would, which is why she did not get relief when she used her Spiriva, but did when given albuterol by EMS. Spiriva is intended as a maintenance treatment to prevent an asthma exacerbation, but is useless to treat an asthma exacerbation. I do not know why Dr. Koo would have prescribed Spiriva instead of albuterol, but I do not want to second-guess his judgment. Instead, I would prefer to have the patient follow-up with him to clarify the issue. 04/22/21 03:50 Notified by Mary TIDWELL that the patient got up to use restroom, and again developed dyspnea and wheezing. She also reported some of the lab values that have been drawn at triage were abnormal - I had not realized that any labs had been ordered at triage. The patient's CBC is remarkable for leukocytosis of 14.6, and an H/H mildly depressed at 9.7/31.1, with remainder of her CBC being unremarkable. Her CMP is remarkable for a bicarbonate elevated at 33, and slight hyperglycemia of 119, with remainder of her CMP being unremarkable. Her D-dimer is elevated at 2.06. Her CRP is elevated at 12.3. On auscultation, the patient does not have expiratory wheezes, however she is coughing, which induces some bronchospasm and a wheeze-like sound. When asked to breathe without coughing, her lungs are clear. Based on the above, I have ordered a troponin, BNP, swab for the SARS-CoV-2 virus, and a chest x-ray. In the meantime, the patient will be given a DuoNeb. 04/22/21 04:42 Two-view chest radiograph reviewed. The cardiac silhouette is within normal limits. No pulmonary vascular congestion. Small bilateral pleural effusions in the posterior sulci. No focal infiltrate. No pneumothorax. Pulmonary nodules noted on the right. Thoracic scoliosis noted. Osteopenia noted. Formal read per the Radiologist pending. 04/22/21 05:11 The patient's troponin is undetectably low. Her pro-BNP is elevated at 4687. Her swab for the SARS-CoV-2 virus is negative. Review of prior labs finds that the patient's pro-BNP is always elevated, with a range of 794 to 12,842. Based on this, it is likely that the patient is suffering from "cardiac asthma", therefore I will treat her with a dose of furosemide. This does not, however, explain her elevated D-dimer or CRP. I will recommend a CT angiogram of the chest to evaluate for a PE or other abnormalities. 04/22/21 05:22 The above was discussed with the patient. She agreed to the CT angiogram. Because she is fluid overloaded, I will withhold IV fluid, however, we will also withhold the oral furosemide for now. 04/22/21 06:21 CT angiogram of the chest is read by vRkathrin as: 1. Small bilateral pleural effusions. Consolidation of the adjacent pulmonary parenchyma. 2. No pulmonary embolus. We will proceed with giving the patient oral furosemide. 04/22/21 06:39 The patient states that she still feels "lousy" due to some shortness of breath. She will be given the Lasix now. We will keep her here in the ED to observe her. The patient pointed out that she has swelling to the extensor surface of her left elbow. There is olecranon bursitis. It is soft, not warm to touch, and is not tender. My suspicion for a septic joint is very low, therefore I am not recommending aspiration. I would prefer to refer her to Dr. Gamboa. 04/22/21 07:51 The patient's daughter is here. The patient has urinated and states that she is feeling better. She is ready to go home. I have learned that she ordinarily takes 40 mg of furosemide per day, not 20 mg, therefore once the patient gets home, she can take her usual medications, including today's scheduled 40 mg, giving her a double dose today. This should help diurese her adequately. I will then have her follow-up with Dr. Koo regarding her pulmonary medicines. Departure - Departure Time of Disposition: 07:53 Disposition: Home, Self-Care 01 Condition: Good Clinical Impression: Cardiac asthma - Discharge Information *PRESCRIPTION DRUG MONITORING PROGRAM REVIEWED*: Not Applicable *COPY OF PRESCRIPTION DRUG MONITORING REPORT IN PATIENT PRISCILLA: Not Applicable Referrals: Tuan Koo MD [Primary Care Provider] - Forms: ED Department Discharge Additional Instructions: You were seen in the emergency room after developing shortness of breath and wheezing when you got up to use the restroom earlier this morning. An inhalatio n of Spiriva did not help, however, an albuterol neb by the paramedics resolved the issue. Work-up in the ER included numerous blood tests, a swab for the SARS-CoV-2 virus, a chest x-ray, and a CT angiogram of your chest. Your work-up found you to be in mild congestive heart failure. The remainder of your work-up was unremarkable. You do not have pneumonia. You have not had a heart attack. You do not have a blood clot in your lungs. You were treated with a single dose of Lasix 40 mg in the ER. Once you get home, you should resume your usual medications, including your usually scheduled Lasix 40 mg today. As discussed, Spiriva is intended as a maintenance medication to prevent you from getting an asthma exacerbation, but does not treat an asthma exacerbation once it develops. For that, you need albuterol. We recommend that you follow-up with your PCP, Dr. Tuan Koo, to see if he would like you to continue on Spiriva, versus take albuterol on an as-needed basis. If any other problems, please do not hesitate to return to the ER. Sepsis Event Note (ED) - Evaluation Sepsis Screening Result: No Definite Risk - Focused Exam Vital Signs: Vital Signs Temp Pulse Resp BP Pulse Ox Pulse Ox 04/22/21 03:50 93 L 04/22/21 02:48 36.8 C 80 25 H 165/71 H 91 L - My Orders Last 24 Hours: My Active Orders 04/22/21 03:47 Chest 2V [CR] Stat 04/22/21 03:50 RT Aerosol Therapy [RC] ASDIRECTED 04/22/21 05:21 Ang Chest [CT] Stat - Assessment/Plan Last 24 Hours: My Active Orders 04/22/21 03:47 Chest 2V [CR] Stat 04/22/21 03:50 RT Aerosol Therapy [RC] ASDIRECTED 04/22/21 05:21 Ang Chest [CT] Stat
[2021-04-22] MEDS ORDERED: Albuterol/Ipratropium 3.0-0.5 MG/3 ML Neb Soln NEB ONE (03:50)
[2021-04-22] MEDS ORDERED: Furosemide 40 MG Tab PO ONE (05:14)
--- NOTE | 2021-04-22 09:12 | CR ---
Chest: 2 views of the chest were obtained. Comparison: Prior chest x-ray of 03/17/21. Blunting of the posterior costophrenic angles were seen which is believed to be stable. Slight hazy density is noted within both lungs which is also felt to be chronic. Heart size and mediastinum are normal. Bony structures are unremarkable. Prior study showed increased density within the left midlung which is improved on current study. Bony structures are osteopenic. Scoliosis is noted within the spine. Impression: 1. Chest x-ray shows slight improvement from prior chest x-ray. 2. Nothing acute is definitely appreciated. Diagnostic code #2
--- NOTE | 2021-04-22 09:14 | CT ---
CT chest Technique: Multiple axial sections through the chest were obtained. Intravenous contrast was utilized. Study has been performed as a pulmonary angiogram protocol. Comparison: Prior CT chest study of 08/16/20. Findings: Very small left-sided pleural effusion is seen. Very minimal right-sided pleural effusion is noted. Increased density is noted adjacent to the pleural effusions presumably due to chronic atelectasis. Lungs are otherwise clear with no definite acute parenchymal change. Pulmonary arteries are well opacified. No filling defects are seen to indicate pulmonary embolism. Heart is slightly enlarged with no pleural effusion. Mild atherosclerotic change is seen within the coronary arteries. Atherosclerotic calcification is noted within the thoracic aorta. Visualized upper abdominal structures show a left renal cyst. Residual splenic tissue is noted. Bone window settings were reviewed. Scattered degenerative change is seen within the spine. No acute osseous abnormality is appreciated. Impression: 1. Minimal pleural effusions. 2. Parenchymal density most likely representing chronic atelectasis adjacent to the pleural effusions. 3. No findings of pulmonary embolism. 4. Other findings believed to be incidental as described above. Diagnostic code #2 I agree with preliminary report from [facility], finalized on 0 04/22/21, 7:16 AM CDT, code 1
== END 2021-04-22 08:12 | disposition home or self-care (01) ==
LOC: JD.ED 02:45
DX: I11.0 Hypertensive heart disease with heart failure (principal); I50.1 Left ventricular failure, unspecified; R79.1 Abnormal coagulation profile; R79.82 Elevated C-reactive protein (CRP); I25.10 Atherosclerotic heart disease of native coronary artery without angina pectoris; I25.2 Old myocardial infarction; K21.9 Gastro-esophageal reflux disease without esophagitis; M19.90 Unspecified osteoarthritis, unspecified site; Z91.040 Latex allergy status; Z88.1 Allergy status to other antibiotic agents; Z88.8 Allergy status to other drugs, medicaments and biological substances; Z79.82 Long term (current) use of aspirin; Z79.899 Other long term (current) drug therapy; Z20.822 Contact with and (suspected) exposure to COVID-19
CPT/HCPCS: 36415; 71046; 71275; 80053; 83880; 84484; 85025; 85379; 86140; 94640; 99285; A9270; U0002; 99284; J7620-GY

== ENCOUNTER 2021-07-24 08:08 | Observation (INO) | payer MEDICARE, BC ==
--- NOTE | 2021-07-24 08:23 | EDM.PDOC ---
ED HPI GENERAL MEDICAL PROBLEM - General Chief Complaint: Chest Pain Stated Complaint: [facility] Time Seen by Provider: 07/24/21 08:18 Source of Information: Reports: Patient History Limitations: Reports: No Limitations - History of Present Illness INITIAL COMMENTS - FREE TEXT/NARRATIVE: Patient is an 86-year-old female with a past medical history of CAD and CHF presenting with a chief complaint of chest pressure. Onset of symptoms was approximately 4 AM this morning. She states that she was awake when symptoms started but not exerting herself. She did not feel any associated shortness of breath, nausea, vomiting. She did take 1 nitroglycerin which improved her symptoms somewhat but she did not take anymore because it gave her headache. She states she also received an aspirin from EMS and feels like her chest pressure is minimal at this point. Over the past week, she is not any change in her medical status. She has not noticed any increased swelling in her legs, pain in her calves, exertional symptoms such as chest pain or shortness of breath. She is on home oxygen after Covid infection last year. No change in oxygen requirements. 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 - Related Data Allergies Allergy/AdvReac Type Severity Reaction Status Date / Time latex Allergy Rash Verified 07/24/21 08:20 atorvastatin calcium AdvReac Muscle Verified 07/24/21 08:20 [From Lipitor] Aches doxycycline AdvReac Vomiting Verified 07/24/21 08:20 rosuvastatin calcium AdvReac Muscle Verified 07/24/21 08:20 [From Crestor] Aches simvastatin [From Zocor] AdvReac Muscle Verified 07/24/21 08:20 Aches Home Meds: Home Meds Aspirin [Low Dose Aspirin EC] 81 mg PO DAILY 02/27/14 [History] Ubidecarenone [Coenzyme Q10] 100 mg PO DAILY 02/27/14 [History] Cholecalciferol (Vitamin D3) [Vitamin D3] 1,000 units PO DAILY 10/11/14 [History] Vitamin B Complex [B Complex] 1 tab PO DAILY 03/28/15 [History] Albuterol [Ventolin HFA] 2 puff INH Q6H PRN 11/18/17 [History] Gabapentin [Neurontin] 300 mg PO BID 11/18/17 [History] Nitroglycerin 0.4 mg SL ASDIRECTED PRN 11/18/17 [History] Lovastatin [Mevacor] 80 mg PO BEDTIME 11/21/17 [History] Fluticasone Propionate [Flonase] 1 spray LINDA BID 08/04/20 [History] Furosemide [Lasix] 20 mg PO BID 08/04/20 [History] Primidone [Mysoline] 100 mg PO BID 08/04/20 [History] Acetaminophen [Tylenol 8 Hour] 650 mg PO BID PRN 03/15/21 [History] Amiodarone [Cordarone] 100 mg PO DAILY 03/15/21 [History] Bisacodyl [Laxative Suppository] 10 mg RECTAL DAILY PRN 03/15/21 [History] Calcium Carbonate/Vitamin D3 [Calcium 600-Vit D3 400 Tablet] 1 tab PO BIDMEALS 03/15/21 [History] Denosumab [Prolia] 60 mg IM ASDIRECTED 03/15/21 [History] Docusate Sodium [Colace] 100 mg PO DAILY 03/15/21 [History] Docusate Sodium/Sennosides [Senna Plus] 2 tab PO DAILY PRN 03/15/21 [History] Ferrous Sulfate 325 mg PO DAILY 03/15/21 [History] Folic Acid 0.4 mg PO DAILY 03/15/21 [History] Losartan [Cozaar] 50 mg PO DAILY 03/15/21 [History] Melatonin 5 mg PO BEDTIME 03/15/21 [History] Menthol [Biofreeze] 1 applic TOP Q2HR PRN 03/15/21 [History] Menthol/Methyl Salicylate [Icy Hot] 1 applic TOP Q3HR PRN 03/15/21 [History] Metoprolol Tartrate [Lopressor] 25 mg PO BID 03/15/21 [History] Omeprazole 40 mg PO DAILY 03/15/21 [History] Potassium Chloride [Klor-Con M20] 20 meq PO WITHBREAKFAST 03/15/21 [History] Sodium Chloride 1 g PO DAILY 03/15/21 [History] amLODIPine Besylate [Norvasc] 5 mg PO BEDTIME 03/15/21 [History] buPROPion HCL [Wellbutrin Xl] 150 mg PO DAILY 03/16/21 [History] Past Medical History HEENT History: Reports: Impaired Vision (wears glasses) Other HEENT History: wear glasses Cardiovascular History: Reports: Afib (paroxysmal), CAD, High Cholesterol, Hypertension, [place] (2010) Other Cardiovascular History: with stents Respiratory History: Reports: Asthma, Sleep Apnea (untreated) Other Respiratory History: does not use any Pap at home. Currently on oxygen at 2 L/min during the night with an oxygen concentrator at home. This is since [facility] the [facility] January 10. 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 Neurological History: Reports: Other (See Below) (Essential tremor) Other Neuro History: pt states she has "essential" tremors Psychiatric History: Reports: Anxiety Endocrine/Metabolic History: Reports: Other (See Below) Other Endocrine/Metabolic History: says she has a goiter problem many years ago Other Hematologic History: SPLEEN REMOVED IN 1989 Immunologic History: Reports: Other (See Below) Other Immunologic History: spleen removed. 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 Other Oncologic History: SKIN CA ON NECK Dermatologic History: Reports: Other (See Below) Other Dermatologic History: pt has "itchy bumps" on forehead and thinks they're dermatitis - Infectious Disease History Infectious Disease History: Reports: Chicken Pox, Measles, Novel Coronavirus (Jul 2020), Shingles, Other (See Below) (Smallpox) Other Infectious Disease History: small pox - Past Surgical History HEENT Surgical History: Reports: Cataract Surgery (right only) Cardiovascular Surgical History: Reports: Coronary Artery Stent (x , 2009), Other (See Below) (Coronary angiogram x 2009) GI Surgical History: Reports: Lysis of Adhesions, Other (See Below) (Splenectomy 1989) Musculoskeletal Surgical History: Reports: Knee Replacement (right) Social & Family History - Family History Family Medical History: No Pertinent Family History - Caffeine Use Caffeine Use: Reports: None Other Caffeine Use: decaff Caffeine Use Comment: she states that she drinks de-caf coffee - Living Situation & Occupation Living situation: Reports: , Alone Occupation: Retired ED ROS GENERAL - Review of Systems Review Of Systems: See Below Free Text/Narrative/Comment: In addition to that documented in the HPI above, the additional ROS was obtained: Constitutional: Denies fevers or chills Eyes: Denies vision changes ENMT: Denies sore throat CV: Per HPI Resp: Denies SOB GI: Denies vomiting or diarrhea : Denies painful urination MSK: Denies recent trauma Skin: Denies new rashes Neuro: Denies new numbness or tingling or weakness Endocrine: Denies unexpected weight loss Heme: Denies bleeding disorders ED EXAM, GENERAL - Physical Exam Exam: See Below Free Text/Narrative:: I have reviewed the triage vital signs Const: Well nourished, well developed, appears stated age Eyes: Pupils Equal and reactive to light bilaterally, no conjunctival injection HENT: No signs of trauma or swelling, Neck supple without meningismus CV: Regular Rate Rhythm, Warm, well-perfused extremities RESP: Unlabored respiratory effort GI: soft, non-tender, non-distended, no masses MSK: No gross deformities appreciated Skin: Warm, dry. 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 Sensation and motor function of extremities grossly intact. Psych: Appropriate mood and affect. #1 Interpretation EKG Date: 07/24/21 Time: 08:14 Rhythm: NSR Rate (Beats/Min): 66 [place]: Normal P-Wave: Present QRS: Normal ST-T: Normal QT: Normal ME/PQ Interval: ME - 286 Comparison: No Change EKG Interpretation Comments: probable anterior infarct old Course - Vital Signs Last Recorded V/S: Last Vital Signs Temp 36.3 C 07/24/21 08:18 Pulse 54 L 07/24/21 09:29 Resp 16 07/24/21 09:29 BP 169/66 H 07/24/21 09:29 Pulse Ox 98 07/24/21 09:29 - Orders/Labs/Meds Labs: Laboratory Tests 07/24/21 07/24/21 07/24/21 Range/Units 08:35 08:35 08:35 WBC 10.95 H (3.98-10.04) K/mm3 RBC 3.65 L (3.98-5.22) M/mm3 Hgb 11.6 D (11.2-15.7) gm/dl Hct 37.2 (34.1-44.9) % MCV 101.9 H D (79.4-94.8) fl MCH 31.8 (25.6-32.2) pg MCHC 31.2 L (32.2-35.5) g/dl RDW Std Deviation 50.4 H (36.4-46.3) fL Plt Count 278 D (182-369) K/mm3 MPV 10.4 (9.4-12.3) fl Neut % (Auto) 31.0 L (34.0-71.1) % Lymph % (Auto) 18.2 L (19.3-51.7) % Thomas % (Auto) 47.5 H (4.7-12.5) % Eos % (Auto) 2.6 (0.7-5.8) Baso % (Auto) 0.4 (0.1-1.2) % Neut # (Auto) 3.41 (1.56-6.13) K/mm3 Lymph # (Auto) 1.99 (1.18-3.74) K/mm3 Thomas # (Auto) 5.20 H (0.24-0.36) K/mm3 Eos # (Auto) 0.28 (0.04-0.36) K/mm3 Baso # (Auto) 0.04 (0.01-0.08) K/mm3 Manual Slide Review Abnormal smear PT 10.6 (9.7-12.0) SECONDS INR 0.95 Sodium 135 L (136-145) mEq/L Potassium 3.8 (3.5-5.1) mEq/L Chloride 96 L (98-107) mEq/L Carbon Dioxide 34 H (21-32) mEq/L Anion Gap 8.8 (5-15) BUN 11 (7-18) mg/dL Creatinine 0.7 (0.55-1.02) mg/dL Est Cr Clr Drug Dosing 40.67 mL/min Estimated GFR (MDRD) > 60 (>60) mL/min BUN/Creatinine Ratio 15.7 (14-18) Glucose 112 H (70-99) mg/dL Calcium 8.7 (8.5-10.1) mg/dL Total Bilirubin 0.3 (0.2-1.0) mg/dL AST 19 (15-37) U/L ALT 15 (14-59) U/L Alkaline Phosphatase 64 (46-116) U/L Troponin I < 0.017 (0.00-0.056) ng/mL NT-Pro-B Natriuret Pep (0-450) pg/mL Total Protein 7.7 (6.4-8.2) g/dl Albumin 3.7 (3.4-5.0) g/dl Globulin 4.0 gm/dL Albumin/Globulin Ratio 0.9 L (1-2) 07/24/21 Range/Units 08:35 WBC (3.98-10.04) K/mm3 RBC (3.98-5.22) M/mm3 Hgb (11.2-15.7) gm/dl Hct (34.1-44.9) % MCV (79.4-94.8) fl MCH (25.6-32.2) pg MCHC (32.2-35.5) g/dl RDW Std Deviation (36.4-46.3) fL Plt Count (182-369) K/mm3 MPV (9.4-12.3) fl Neut % (Auto) (34.0-71.1) % Lymph % (Auto) (19.3-51.7) % Thomas % (Auto) (4.7-12.5) % Eos % (Auto) (0.7-5.8) Baso % (Auto) (0.1-1.2) % Neut # (Auto) (1.56-6.13) K/mm3 Lymph # (Auto) (1.18-3.74) K/mm3 Thomas # (Auto) (0.24-0.36) K/mm3 Eos # (Auto) (0.04-0.36) K/mm3 Baso # (Auto) (0.01-0.08) K/mm3 Manual Slide Review PT (9.7-12.0) SECONDS INR Sodium (136-145) mEq/L Potassium (3.5-5.1) mEq/L Chloride (98-107) mEq/L Carbon Dioxide (21-32) mEq/L Anion Gap (5-15) BUN (7-18) mg/dL Creatinine (0.55-1.02) mg/dL Est Cr Clr Drug Dosing mL/min Estimated GFR (MDRD) (>60) mL/min BUN/Creatinine Ratio (14-18) Glucose (70-99) mg/dL Calcium (8.5-10.1) mg/dL Total Bilirubin (0.2-1.0) mg/dL AST (15-37) U/L ALT (14-59) U/L Alkaline Phosphatase (46-116) U/L Troponin I (0.00-0.056) ng/mL NT-Pro-B Natriuret Pep 3417 H (0-450) pg/mL Total Protein (6.4-8.2) g/dl Albumin (3.4-5.0) g/dl Globulin gm/dL Albumin/Globulin Ratio (1-2) Meds: Medications Discontinued Medications Generic Name Dose Route Start Last Admin Trade Name Freq PRN Reason Stop Dose Admin Acetaminophen 650 mg 07/24/21 09:56 07/24/21 10:01 Acetaminophen 325 Mg Tab PO 07/24/21 09:57 650 mg NOW ONE Administration Departure - Departure Time of Disposition: 10:20 Disposition: Admitted As Inpatient 65 Clinical Impression: Chest pain Referrals: Tuan Koo MD [Primary Care Provider] - Forms: ED Department Discharge Sepsis Event Note (ED) - Focused Exam Vital Signs: Vital Signs Temp Pulse Resp BP Pulse Ox 07/24/21 09:29 54 L 16 169/66 H 98 07/24/21 08:18 36.3 C 68 18 183/77 H 88 L - Assessment/Plan Assessment:: Patient is an 86-year-old female with a chief complaint of chest pain. Unremarkable ER course. EKG interpreted as above. Initial set of labs demonstrate slight leukocytosis but otherwise no significant abnormalities. No obvious signs of infection. Chest x-ray unremarkable. BNP is elevated at thirty-four hundred. Questionable component of CHF but seems less likely with an acute picture in this patient as she has no pulmonary vascular congestion or lower extremity edema. At this point, there is concerns for cardiac chest pain. She does have a heart score of 6 and I did recommend observation in the hospital for further cardiac evaluation. Case was discussed with Dr. Draper who agreed to accept patient for admission.
--- NOTE | 2021-07-24 09:17 | CR ---
Chest: Portable view of the chest was obtained. Comparison: Prior chest x-ray of 03/17/21. Heart size appears within normal limits for portable technique. Upper mediastinum is normal. Lungs show no acute parenchymal change. Scoliosis is noted within the spine with partially visualized degenerative change. No acute osseous finding is seen. Impression: 1. Nothing acute is seen on portable chest x-ray. Diagnostic code #2
[2021-07-24] MEDS ORDERED: Acetaminophen 325 MG Tab PO ONE (09:56)
[2021-07-24] MEDS ORDERED: Ondansetron 4 MG/2 ML SDV IV PRN (10:42)
[2021-07-24] MEDS ORDERED: Nitroglycerin 0.4 MG Tab.SL SL PRN (10:46)
--- NOTE | 2021-07-24 11:03 | PCM.HP.2 ---
H&P History of Present Illness - General Date of Service: 07/24/21 Admit Problem/Dx: Admission Diagnosis/Problem Admission Diagnosis/Problem Chest pain Source of Information: Patient, Old Records, Provider, RN, RN Notes Reviewed History Limitations: Reports: No Limitations - History of Present Illness Initial Comments - Free Text/Narative: This is an 86-year-old female who presents to ED on 07/24/2021 via [facility] complaining of chest pressure. She reports she woke around 3 AM this morning having a nightmare that she was having a heart attack. She then states around 4 AM she began having chest pressure while awake and ambulating around her house. Denied any shortness of breath, nausea, or vomiting. She took 1 nitroglycerin tablet which improved her symptoms but did not resolve them. She reports she developed a headache and did not want to take anymore. She was given aspirin via EMS. She is oxygen dependent on 2 L secondary to a Covid infection last year. She has had no change in oxygen demand. She denies any increased pedal edema, calf pain, exertional pain, or shortness of breath. In the ED twelve-lead EKG is obtained showing a sinus rhythm at 66 bpm. There is a first-degree heart block and near Q waves in V1 through V2. Repolarization abnormalities also noted. 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 Temp is 36.3 Celsius. Pulse 54. Respirations 16. Blood pressure is elevated at 169/66. Pulse ox 90%. Labs are obtained showing a mild leukocytosis of 10.95. Hemoglobin is 11.6. Platelets are 278,000. Neutrophils are low at 31.0. Monocytes are elevated at 47.5. INR is 0.95. Sodium is slightly low at 135. Potassium 3.8. Chloride 96. Carbon dioxide 34. Anion gap 8.8. BUN is 11. Creatinine 0.7. GFR greater than 60. Glucose is 112. Calcium 8.7. Total bilirubin 0.3. AST is 19, ALT 15, alkaline phosphatase 64. Troponin is less than 0.017. Albumin is 3.7. proBNP is 3417. Chest x-ray is obtained showing nothing acute. Heart score was calculated and is 6. She reported minimal chest pressure in the ED and denied any chest pressure prior to admission. Decision is made to admit the patient observation status with telemetry for chest pain rule out. She carries a history of paroxysmal A. fib, CAD, HLD, hypertension, MA in 2010 with stent placement, untreated sleep apnea, asthma, chronic oxygen dependence, GERD, recurrent UTI, essential tremor, anxiety, splenectomy. Her PCP is Dr. Sal. She sees Dr. Garcia for cardiology. She is a full code. - Related Data Allergies/Adverse Reactions: Allergies Allergy/AdvReac Type Severity Reaction Status Date / Time latex Allergy Rash Verified 07/24/21 08:20 atorvastatin calcium AdvReac Muscle Verified 07/24/21 08:20 [From Lipitor] Aches doxycycline AdvReac Vomiting Verified 07/24/21 08:20 rosuvastatin calcium AdvReac Muscle Verified 07/24/21 08:20 [From Crestor] Aches simvastatin [From Zocor] AdvReac Muscle Verified 07/24/21 08:20 Aches Home Medications: Home Meds Aspirin [Low Dose Aspirin EC] 81 mg PO DAILY 02/27/14 [History] Ubidecarenone [Coenzyme Q10] 100 mg PO DAILY 02/27/14 [History] Cholecalciferol (Vitamin D3) [Vitamin D3] 1,000 units PO DAILY 10/11/14 [History] Vitamin B Complex [B Complex] 1 tab PO DAILY 03/28/15 [History] Albuterol [Ventolin HFA] 2 puff INH Q6H PRN 11/18/17 [History] Gabapentin [Neurontin] 300 mg PO BID 11/18/17 [History] Nitroglycerin 0.4 mg SL ASDIRECTED PRN 11/18/17 [History] Lovastatin [Mevacor] 80 mg PO BEDTIME 11/21/17 [History] Fluticasone Propionate [Flonase] 1 spray LINDA BID 08/04/20 [History] Furosemide [Lasix] 20 mg PO BID 08/04/20 [History] Primidone [Mysoline] 100 mg PO BID 08/04/20 [History] Acetaminophen [Tylenol 8 Hour] 650 mg PO BID PRN 03/15/21 [History] Amiodarone [Cordarone] 100 mg PO DAILY 03/15/21 [History] Bisacodyl [Laxative Suppository] 10 mg RECTAL DAILY PRN 03/15/21 [History] Calcium Carbonate/Vitamin D3 [Calcium 600-Vit D3 400 Tablet] 1 tab PO BIDMEALS 03/15/21 [History] Denosumab [Prolia] 60 mg IM ASDIRECTED 03/15/21 [History] Docusate Sodium [Colace] 100 mg PO DAILY 03/15/21 [History] Docusate Sodium/Sennosides [Senna Plus] 2 tab PO DAILY PRN 03/15/21 [History] Ferrous Sulfate 325 mg PO DAILY 03/15/21 [History] Folic Acid 0.4 mg PO DAILY 03/15/21 [History] Losartan [Cozaar] 50 mg PO DAILY 03/15/21 [History] Melatonin 5 mg PO BEDTIME 03/15/21 [History] Menthol [Biofreeze] 1 applic TOP Q2HR PRN 03/15/21 [History] Menthol/Methyl Salicylate [Icy Hot] 1 applic TOP Q3HR PRN 03/15/21 [History] Metoprolol Tartrate [Lopressor] 25 mg PO BID 03/15/21 [History] Omeprazole 40 mg PO DAILY 03/15/21 [History] Potassium Chloride [Klor-Con M20] 20 meq PO WITHBREAKFAST 03/15/21 [History] Sodium Chloride 1 g PO DAILY 03/15/21 [History] amLODIPine Besylate [Norvasc] 5 mg PO BEDTIME 03/15/21 [History] buPROPion HCL [Wellbutrin Xl] 150 mg PO DAILY 03/16/21 [History] Past Medical History HEENT History: Reports: Impaired Vision Other HEENT History: wear glasses Cardiovascular History: Reports: Afib, CAD, High Cholesterol, Hypertension, MA Other Cardiovascular History: with stents Respiratory History: Reports: Asthma, Sleep Apnea Other Respiratory History: Wears 2 L at home Gastrointestinal History: Reports: GERD Other Gastrointestinal History: stool softener and laxative she takes at home bid Genitourinary History: Reports: UTI, Recurrent Other 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 Other Oncologic History: SKIN CA ON NECK Dermatologic History: Reports: Other (See Below) Other Dermatologic History: pt has "itchy bumps" on forehead and thinks they're dermatitis - Infectious Disease History Infectious Disease History: Reports: Chicken Pox, Measles, Novel Coronavirus, Shingles, Other (See Below) Other Infectious Disease History: small pox - Past Surgical History HEENT Surgical History: Reports: Cataract Surgery (right only) Cardiovascular Surgical History: Reports: Coronary Artery Stent (x , 2009), Other (See Below) (Coronary angiogram x , 2009) GI Surgical History: Reports: Lysis of Adhesions, Other (See Below) (Splenectomy 1989) Musculoskeletal Surgical History: Reports: Knee Replacement (right) Social & Family History - Family History Family Medical History: No Pertinent Family History - Tobacco Use Tobacco Use Status *Q: Never Tobacco User Second Hand Smoke Exposure: No - Caffeine Use Caffeine Use: Reports: None Other Caffeine Use: decaff Caffeine Use Comment: she states that she drinks de-caf coffee - Recreational Drug Use Recreational Drug Use: No - Living Situation & Occupation Living situation: Reports: , Alone Occupation: Retired H&P Review of Systems - Review of Systems: Review Of Systems: See Below General: Reports: Fatigue (Has been up most of night ). Denies: Fever, Chills, Malaise, Weakness HEENT: Reports: No Symptoms. Denies: Sore Throat Pulmonary: Reports: Shortness of Breath (Chronic with oxygen use ). Denies: Wheezing, Pleuritic Chest Pain, Cough, Sputum Cardiovascular: Reports: Dyspnea on Exertion (chronic ), Edema. Denies: Chest Pain, Palpitations Gastrointestinal: Reports: No Symptoms. Denies: Abdominal Pain, Constipation, Diarrhea, Nausea, Vomiting Genitourinary: Reports: No Symptoms. Denies: Pain Musculoskeletal: Reports: No Symptoms Skin: Reports: No Symptoms. Denies: Cyanosis Psychiatric: Reports: No Symptoms. Denies: Confusion Neurological: Reports: Headache (Mild -secondary to nitroglycerin use), Tremors (chronic ). Denies: Confusion, Dizziness, Numbness, Pre-Existing Deficit, Seizure, Syncope, Tingling, Trouble Speaking, Difficulty Walking, Weakness, Change in Speech Hematologic/Lymphatic: Reports: No Symptoms Immunologic: Reports: No Symptoms Exam - Exam Exam: See Below - Vital Signs Vital Signs: Last Vital Signs Temp 97.3 F 07/24/21 08:18 Pulse 54 L 07/24/21 09:29 Resp 16 07/24/21 09:29 BP 169/66 H 07/24/21 09:29 Pulse Ox 98 07/24/21 09:29 Weight: 135 lb - Exam Quality Assessment: Supplemental Oxygen (2L chronic and at baseline), DVT Prophylaxis. No: Urinary Catheter General: Alert, Oriented, Cooperative. No: Mild Distress HEENT: Conjunctiva Clear, EACs Clear, Mucosa Moist & [place], Posterior Pharynx Clear Neck: Supple, Trachea Midline Lungs: Clear to Auscultation, Normal Respiratory Effort Cardiovascular: Regular Rate, Regular Rhythm GI/Abdominal Exam: Normal Bowel Sounds, Soft, Non-Tender, No Distention (Female) Exam: Deferred Rectal (Female) Exam: Deferred Back Exam: Normal Inspection, Full Range of Motion Extremities: Normal Inspection, Normal Range of Motion, Non-Tender, Normal Capillary Refill, Pedal Edema (1+) Skin: Warm, Dry, Intact Neurological: Cranial Nerves Intact (Grossly ) Neuro Extensive - Mental Status: Alert, Oriented x3, Normal Mood/Affect - Patient Data Lab Results Last 24 hrs: Laboratory Results - last 24 hr 07/24/21 07/24/21 07/24/21 Range/Units 08:35 08:35 08:35 WBC 10.95 H (3.98-10.04) K/mm3 RBC 3.65 L (3.98-5.22) M/mm3 Hgb 11.6 D (11.2-15.7) gm/dl Hct 37.2 (34.1-44.9) % MCV 101.9 H D (79.4-94.8) fl MCH 31.8 (25.6-32.2) pg MCHC 31.2 L (32.2-35.5) g/dl RDW Std Deviation 50.4 H (36.4-46.3) fL Plt Count 278 D (182-369) K/mm3 MPV 10.4 (9.4-12.3) fl Neut % (Auto) 31.0 L (34.0-71.1) % Lymph % (Auto) 18.2 L (19.3-51.7) % [place] % (Auto) 47.5 H (4.7-12.5) % Eos % (Auto) 2.6 (0.7-5.8) Baso % (Auto) 0.4 (0.1-1.2) % Neut # (Auto) 3.41 (1.56-6.13) K/mm3 Lymph # (Auto) 1.99 (1.18-3.74) K/mm3 [place] # (Auto) 5.20 H (0.24-0.36) K/mm3 Eos # (Auto) 0.28 (0.04-0.36) K/mm3 Baso # (Auto) 0.04 (0.01-0.08) K/mm3 Manual Slide Review Abnormal smear PT 10.6 (9.7-12.0) SECONDS INR 0.95 Sodium 135 L (136-145) mEq/L Potassium 3.8 (3.5-5.1) mEq/L Chloride 96 L (98-107) mEq/L Carbon Dioxide 34 H (21-32) mEq/L Anion Gap 8.8 (5-15) BUN 11 (7-18) mg/dL Creatinine 0.7 (0.55-1.02) mg/dL Est Cr Clr Drug Dosing 40.67 mL/min Estimated GFR (MDRD) > 60 (>60) mL/min BUN/Creatinine Ratio 15.7 (14-18) Glucose 112 H (70-99) mg/dL Calcium 8.7 (8.5-10.1) mg/dL Total Bilirubin 0.3 (0.2-1.0) mg/dL AST 19 (15-37) U/L ALT 15 (14-59) U/L Alkaline Phosphatase 64 (46-116) U/L Troponin I < 0.017 (0.00-0.056) ng/mL NT-Pro-B Natriuret Pep (0-450) pg/mL Total Protein 7.7 (6.4-8.2) g/dl Albumin 3.7 (3.4-5.0) g/dl Globulin 4.0 gm/dL Albumin/Globulin Ratio 0.9 L (1-2) 11/19/21 Range/Units 08:35 WBC (3.98-10.04) K/mm3 RBC (3.98-5.22) M/mm3 Hgb (11.2-15.7) gm/dl Hct (34.1-44.9) % MCV (79.4-94.8) fl MCH (25.6-32.2) pg MCHC (32.2-35.5) g/dl RDW Std Deviation (36.4-46.3) fL Plt Count (182-369) K/mm3 MPV (9.4-12.3) fl Neut % (Auto) (34.0-71.1) % Lymph % (Auto) (19.3-51.7) % [place] % (Auto) (4.7-12.5) % Eos % (Auto) (0.7-5.8) Baso % (Auto) (0.1-1.2) % Neut # (Auto) (1.56-6.13) K/mm3 Lymph # (Auto) (1.18-3.74) K/mm3 [place] # (Auto) (0.24-0.36) K/mm3 Eos # (Auto) (0.04-0.36) K/mm3 Baso # (Auto) (0.01-0.08) K/mm3 Manual Slide Review PT (9.7-12.0) SECONDS INR Sodium (136-145) mEq/L Potassium (3.5-5.1) mEq/L Chloride (98-107) mEq/L Carbon Dioxide (21-32) mEq/L Anion Gap (5-15) BUN (7-18) mg/dL Creatinine (0.55-1.02) mg/dL Est Cr Clr Drug Dosing mL/min Estimated GFR (MDRD) (>60) mL/min BUN/Creatinine Ratio (14-18) Glucose (70-99) mg/dL Calcium (8.5-10.1) mg/dL Total Bilirubin (0.2-1.0) mg/dL AST (15-37) U/L ALT (14-59) U/L Alkaline Phosphatase (46-116) U/L Troponin I (0.00-0.056) ng/mL NT-Pro-B Natriuret Pep 3417 H (0-450) pg/mL Total Protein (6.4-8.2) g/dl Albumin (3.4-5.0) g/dl Globulin gm/dL Albumin/Globulin Ratio (1-2) Result Diagrams: 07/24/21 08:35 07/24/21 08:35 Sepsis Event Note - Evaluation Sepsis Screening Result: No Definite Risk - Focused Exam Vital Signs: Vital Signs Temp Pulse Resp BP Pulse Ox 07/24/21 09:29 54 L 16 169/66 H 98 07/24/21 08:18 97.3 F 68 18 183/77 H 88 L - Problem List (1) History of COVID-19 SNOMED Code(s): 817993934681709697, 174418713812863193 ICD Code: Z86.16 - PERSONAL HISTORY OF COVID-19 Status: Chronic Priority: Medium Current Visit: No (2) Chronic respiratory failure with hypoxia, on home oxygen therapy SNOMED Code(s): 852307509 ICD Code: J96.11 - CHRONIC RESPIRATORY FAILURE WITH HYPOXIA; Z99.81 - DEPENDENCE ON SUPPLEMENTAL OXYGEN Status: Chronic Priority: Medium Current Visit: No (3) Paroxysmal atrial fibrillation SNOMED Code(s): 258652569 ICD Code: I48.0 - PAROXYSMAL ATRIAL FIBRILLATION Status: Chronic Priority: Low Current Visit: No (4) HLD (hyperlipidemia) SNOMED Code(s): 55431907 ICD Code: E78.5 - HYPERLIPIDEMIA, UNSPECIFIED Status: Chronic Priority: Low Current Visit: No Qualifiers: Hyperlipidemia type: unspecified Qualified Code(s): E78.5 - Hyperlipidemia, unspecified (5) History of MA (myocardial infarction) SNOMED Code(s): 641478245 ICD Code: I25.2 - OLD MYOCARDIAL INFARCTION Status: Chronic Priority: Medium Current Visit: No (6) H/O heart artery stent SNOMED Code(s): 078891957, 189537290 ICD Code: Z95.5 - PRESENCE OF CORONARY ANGIOPLASTY IMPLANT AND GRAFT Status: Chronic Priority: Medium Current Visit: No (7) Sleep apnea SNOMED Code(s): 16983134 ICD Code: G47.30 - SLEEP APNEA, UNSPECIFIED Status: Chronic Priority: Low Current Visit: No Problem Details: Untreated Qualifiers: Sleep apnea type: unspecified type Qualified Code(s): G47.30 - Sleep apnea, unspecified (8) Anxiety SNOMED Code(s): 94520457 ICD Code: F41.9 - ANXIETY DISORDER, UNSPECIFIED Status: Chronic Priority: Medium Current Visit: No (9) History of splenectomy SNOMED Code(s): 034875490 ICD Code: Z90.81 - ACQUIRED ABSENCE OF SPLEEN Status: Chronic Priority: Low Current Visit: No (10) Asthma SNOMED Code(s): 301405662 ICD Code: J45.909 - UNSPECIFIED ASTHMA, UNCOMPLICATED Status: Chronic Priority: Medium Current Visit: No Qualifiers: Asthma severity: unspecified severity Asthma persistence: unspecified Asthma complication type: unspecified Qualified Code(s): J45.909 - Unspecified asthma, uncomplicated (11) Chest pain SNOMED Code(s): 91386584 ICD Code: R07.9 - CHEST PAIN, UNSPECIFIED Status: Resolved Priority: High Current Visit: Yes Qualifiers: Chest pain type: other chest pain Qualified Code(s): R07.89 - Other chest pain; R07.8 - Other chest pain (12) Reactive monocytosis SNOMED Code(s): 96688670 ICD Code: D72.821 - MONOCYTOSIS (SYMPTOMATIC) Status: Chronic Priority: Medium Current Visit: No (13) CAD (coronary artery disease) SNOMED Code(s): 70583887 ICD Code: I25.10 - ATHSCL HEART DISEASE OF [place] CORONARY ARTERY W/O ANG PCTRS Status: Chronic Priority: Low Current Visit: No Qualifiers: Coronary Disease-Associated Artery/Lesion type: unspecified vessel or lesion type [place] vs. transplanted heart: unspecified whether [place] or transplanted heart Associated angina: with unspecified angina (14) Essential tremor SNOMED Code(s): 005196322 ICD Code: G25.0 - ESSENTIAL TREMOR Status: Chronic Priority: Low Current Visit: No (15) GERD (gastroesophageal reflux disease) SNOMED Code(s): 875014250 ICD Code: K21.9 - GASTRO-ESOPHAGEAL REFLUX DISEASE WITHOUT ESOPHAGITIS Status: Chronic Priority: Low Current Visit: No Qualifiers: Esophagitis presence: esophagitis presence not specified Qualified Code(s): K21.9 - Gastro-esophageal reflux disease without esophagitis (16) HTN (hypertension) SNOMED Code(s): 98126927 ICD Code: I10 - ESSENTIAL (PRIMARY) HYPERTENSION Status: Chronic Priority: Medium Current Visit: No Qualifiers: Hypertension type: unspecified Qualified Code(s): I10 - Essential (primary) hypertension (17) Elevated brain natriuretic peptide (BNP) level SNOMED Code(s): 508200365, 499285070 ICD Code: R79.89 - OTHER SPECIFIED ABNORMAL FINDINGS OF BLOOD CHEMISTRY Status: Chronic Priority: Low Current Visit: No Problem List Initiated/Reviewed/Updated: Yes Orders Last 24hrs: Active Orders 24 hr Category Date Time Status Admission Status [Patient Status] [ADT] Routine ADT 07/24/21 10:33 Active Cardiac Monitoring [RC] CONTINUOUS Care 07/24/21 10:42 Active EKG 12 Lead [EKG Documentation Completion] [RC] Care 07/24/21 13:00 Active ASDIRECTED Height and Weight [RC] DAILY Care 07/24/21 10:42 Active Intake and Output [RC] DAILY Care 07/24/21 10:42 Active Oxygen Therapy [RC] ASDIRECTED Care 07/24/21 10:42 Active Pulse Oximetry [RC] PRN Care 07/24/21 10:43 Active Up With Assistance [RC] ASDIRECTED Care 07/24/21 10:42 Active Vital Signs [RC] Q6H Care 07/24/21 10:42 Active Consult to Case Management/Exchange Teller [CONS] Cons 07/24/21 10:42 Active Routine OT Evaluation and Treatment [CONS] Routine Cons 07/24/21 10:45 Active PT Evaluation and Treatment [CONS] Routine Cons 07/24/21 10:45 Active Heart Healthy Diet [DIET] Diet 07/24/21 Lunch Active Nothing Per Oral Diet [DIET] Diet 07/27/21 Breakfast Active Myocardial Perf Spect Multi [NM] Routine Exams 07/27/21 07:00 Ordered CBC WITH AUTO DIFF [HEME] AM Lab 07/25/21 05:11 Ordered CBC WITH AUTO DIFF [HEME] AM Lab 07/26/21 05:11 Ordered CBC WITH AUTO DIFF [HEME] AM Lab 07/27/21 05:11 Ordered CBC WITH AUTO DIFF [HEME] AM Lab 07/28/21 05:11 Ordered CKMB [CHEM] Routine Lab 07/24/21 13:00 Ordered COMPREHENSIVE METABOLIC PN,CMP [CHEM] AM Lab 07/25/21 05:11 Ordered COMPREHENSIVE METABOLIC PN,CMP [CHEM] AM Lab 07/26/21 05:11 Ordered COMPREHENSIVE METABOLIC PN,CMP [CHEM] AM Lab 07/27/21 05:11 Ordered COMPREHENSIVE METABOLIC PN,CMP [CHEM] AM Lab 07/28/21 05:11 Ordered CORONAVIRUS COVID-19 IRMA [MOLEC] Stat Lab 07/24/21 10:44 Received MAGNESIUM [CHEM] AM Lab 07/25/21 05:11 Ordered MAGNESIUM [CHEM] AM Lab 07/26/21 05:11 Ordered MAGNESIUM [CHEM] AM Lab 07/27/21 05:11 Ordered MAGNESIUM [CHEM] AM Lab 07/28/21 05:11 Ordered TROPONIN I [CHEM] AM Lab 07/25/21 05:11 Ordered TROPONIN I [CHEM] Timed Lab 07/24/21 13:00 Ordered Acetaminophen [TylenoL] Med 07/24/21 10:42 Active 650 mg PO Q4H PRN Nitroglycerin [Nitrostat] Med 07/24/21 10:46 Active 0.4 mg SL Q5M PRN Ondansetron [Zofran] Med 07/24/21 10:42 Active 4 mg IV Q6H PRN EKG Stress NM Adenosine [EK] Routine Ther 07/27/21 07:00 Ordered Medication Orders Acetaminophen (Acetaminophen 325 Mg Tab) 650 mg PO Q4H PRN PRN Reason: Pain (Mild 1-3)/fever Nitroglycerin (Nitroglycerin 0.4 Mg Tab.Sl) 0.4 mg SL Q5M PRN PRN Reason: Chest Pain Ondansetron HCl (Ondansetron 4 Mg/2 Ml Sdv) 4 mg IV Q6H PRN PRN Reason: Nausea/Vomiting Assessment/Plan Comment:: Chest pain CAD (coronary artery disease) HTN (hypertension) Paroxysmal atrial fibrillation HLD (hyperlipidemia) History of MA (myocardial infarction) H/O heart artery stent * Re-check Troponin at 1300 and tomorrow AM * Check CK-MB at 1300 * Repeat 12-lead EKG at 1300 * Home medications as ordered * PRN Nitroglycerine 0.4mg * Telemetry * Lexiscan Stress test on 07/27/2021 (earliest available stress test due to weekend) * Review prior echocardiogram from 08/05/2020 History of COVID-19 Chronic respiratory failure with hypoxia, on home oxygen therapy Asthma Sleep apnea * No acute concerns * O2 as needed to keep saturations >90 (on 2L home baseline * Home medications * PRN duonebs Elevated BNP * Lab results reviewed and this is chronic Anxiety * No acute concerns * Continue home medications as ordered History of splenectomy Reactive monocytosis * Chronic - no acute concerns * Monitor Essential tremor * No acute concerns - at baseline GERD (gastroesophageal reflux disease) * No acute concerns * Home medications as ordered Code status: Full code PCP: Dr. Koo Cardiology: Dr. Garcia DVT prophylaxis: Lovenox Social: Patient resides in a home alone Disposition: Patient admitted observation status on telemetry for chest pain rule out. LOS dependant on repeat lab results. Earliest stress test availability is 07/27/2021 due to weekend. - Mortality Measure Prognosis:: Good
[2021-07-24] MEDS ORDERED: Albuterol 6.7 GM Inhaler INH PRN (12:31)
[2021-07-24] MEDS ORDERED: Bisacodyl 10 MG Supp RECTAL PRN (12:31)
[2021-07-24] MEDS ORDERED: Menthol/Methyl Salicylate 85 GM Tube TOP PRN (12:31)
[2021-07-24] MEDS ORDERED: Albuterol/Ipratropium 3.0-0.5 MG/3 ML Neb Soln NEB PRN (12:38)
--- NOTE | 2021-07-24 14:56 | PCM.EKG ---
#1 Interpretation EKG Date: 07/24/21 Time: 14:03 Rhythm: NSR Rate (Beats/Min): 62 [place]: Normal P-Wave: Present QRS: Normal ST-T: Normal QT: Prolonged OH/PQ Interval: Prolonged - 1st degree HB noted Comparison: Change From Previous EKG (LVH pattern noted - minimal change) EKG Interpretation Comments: LVH pattern with repolarization abnormality; Near q-waves in V1-V3 - possible old anterior infarct. QTc mildl prolonged at 486. Abnormal EKG
[2021-07-24] MEDS: Acetaminophen 325 MG Tab PO PRN (19:30)
[2021-07-24] MEDS: Primidone 50 MG Tab PO SCH (20:16)
[2021-07-24] MEDS: Metoprolol Tartrate 25 MG Tab PO SCH (20:17)
[2021-07-24] MEDS: Gabapentin 300 MG Cap PO SCH (20:17)
[2021-07-24] MEDS: Furosemide 20 MG Tab PO SCH (20:19)
[2021-07-24] MEDS: Fluticasone Propionate Nasal Spray 16 GM Bottle NAS SCH (20:24)
[2021-07-24] MEDS ORDERED: Non-Formulary Medication 1 Each (Lovastatin [Mevacor] 40 MG Tablet) PO SCH (21:00)
[2021-07-24] MEDS ORDERED: amLODIPine 5 MG Tab PO SCH (21:00)
[2021-07-24] MEDS ORDERED: Melatonin 3 MG Tab PO SCH (21:00)
[2021-07-25] MEDS: Acetaminophen 325 MG Tab PO PRN ×2 (00:54→06:45)
[2021-07-25] MEDS ORDERED: Pantoprazole 40 MG Tab.CR PO SCH (07:00)
[2021-07-25] MEDS ORDERED: Potassium Chloride 20 MEQ Tab.ER PO SCH (07:00)
[2021-07-25] MEDS: Furosemide 20 MG Tab PO SCH (08:36)
[2021-07-25] MEDS: Primidone 50 MG Tab PO SCH (08:41)
[2021-07-25] MEDS: Gabapentin 300 MG Cap PO SCH (08:43)
[2021-07-25] MEDS: Fluticasone Propionate Nasal Spray 16 GM Bottle NAS SCH (08:45)
[2021-07-25] MEDS ORDERED: Docusate Sodium 100 MG Cap PO SCH (09:00)
[2021-07-25] MEDS ORDERED: Losartan 50 MG Tab PO SCH (09:00)
[2021-07-25] MEDS ORDERED: Aspirin 81 MG Tab.EC PO SCH (09:00)
[2021-07-25] MEDS ORDERED: buPROPion 150 MG Tab.ER PO SCH (09:00)
[2021-07-25] MEDS ORDERED: Amiodarone 200 MG Tab PO SCH (09:00)
[2021-07-25] MEDS ORDERED: Enoxaparin 40 MG/0.4 ML Syringe SUBCUT SCH (09:00)
[2021-07-25] MEDS ORDERED: Sodium Chloride 1 GM Tab PO SCH (09:00)
[2021-07-25] MEDS ORDERED: Ferrous Sulfate 324 MG Tab.EC PO SCH (09:00)
[2021-07-25] MEDS ORDERED: Folic Acid 1 MG Tab PO SCH (09:00)
[2021-07-25] MEDS: Metoprolol Tartrate 25 MG Tab PO SCH (09:02)
--- NOTE | 2021-07-25 10:34 | PCM.DCSUM1 ---
Discharge Summary - Hospital Course HPI Initial Comments: This is an 86-year-old female who presents to ED on 07/24/2021 via [facility] complaining of chest pressure. She reports she woke around 3 AM this morning having a nightmare that she was having a heart attack. She then states around 4 AM she began having chest pressure while awake and ambulating around her house. Denied any shortness of breath, nausea, or vomiting. She took 1 nitroglycerin tablet which improved her symptoms but did not resolve them. She reports she developed a headache and did not want to take anymore. She was given aspirin via EMS. She is oxygen dependent on 2 L secondary to a Covid infection last year. She has had no change in oxygen demand. She denies any increased pedal edema, calf pain, exertional pain, or shortness of breath. In the ED twelve-lead EKG is obtained showing a sinus rhythm at 66 bpm. There is a first-degree heart block and near Q waves in V1 through V2. Repolarization abnormalities also noted. 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 Temp is 36.3 Celsius. Pulse 54. Respirations 16. Blood pressure is elevated at 169/66. Pulse ox 90%. Labs are obtained showing a mild leukocytosis of 10.95. Hemoglobin is 11.6. Platelets are 278,000. Neutrophils are low at 31.0. Monocytes are elevated at 47.5. INR is 0.95. Sodium is slightly low at 135. Potassium 3.8. Chloride 96. Carbon dioxide 34. Anion gap 8.8. BUN is 11. Creatinine 0.7. GFR greater than 60. Glucose is 112. Calcium 8.7. Total bilirubin 0.3. AST is 19, ALT 15, alkaline phosphatase 64. Troponin is less than 0.017. Albumin is 3.7. proBNP is 3417. Chest x-ray is obtained showing nothing acute. Heart score was calculated and is 6. She reported minimal chest pressure in the ED and denied any chest pressure prior to admission. Decision is made to admit the patient observation status with telemetry for chest pain rule out. She carries a history of paroxysmal A. fib, CAD, HLD, hypertension, [place] in 2009 with stent placement, untreated sleep apnea, asthma, chronic oxygen dependence, GERD, recurrent UTI, essential tremor, anxiety, splenectomy. Her PCP is Dr. Sal. She sees Dr. Garcia for cardiology. She is a full code. Diagnosis: Stroke: No - Discharge Data Discharge Date: 07/25/21 Discharge Disposition: Home, Self-Care 01 Condition: Good - Referral to Home Health Primary Care Physician: Tuan Koo MD - Patient Summary/Data Consults: Consultations 07/24/21 10:42 Consult to Case Management/Imaging Technologist [CONS] Routine 07/24/21 10:45 OT Evaluation and Treatment [CONS] Routine PT Evaluation and Treatment [CONS] Routine Hospital Course: Deolres was admitted to the hospital and serial enzymes were all negative. Patient did not have any chest pain throughout the hospitalization or on admission. She has an appointment for cardiac stress test on July 27. If she has any worsening of symptoms she will return to the emergency department. She is also instructed to contact her city jailer. - Patient Instructions Diet: Heart Healthy Diet Activity: As Tolerated Showering/Bathing: May Shower Notify Provider of: Fever, Nausea and/or Vomiting (Chest pain) Other/Special Instructions: You have a stress test scheduled for July 27. Please follow-up with your city jailer within a week or 2. - Discharge Plan *PRESCRIPTION DRUG MONITORING PROGRAM REVIEWED*: No *COPY OF PRESCRIPTION DRUG MONITORING REPORT IN PATIENT PRISCILLA: No Home Medications: Home Meds Aspirin [Low Dose Aspirin EC] 81 mg PO DAILY 02/27/14 [History] Ubidecarenone [Coenzyme Q10] 100 mg PO DAILY 02/27/14 [History] Cholecalciferol (Vitamin D3) [Vitamin D3] 1,000 units PO DAILY 10/11/14 [History] Vitamin B Complex [B Complex] 1 tab PO DAILY 03/28/15 [History] Albuterol [Ventolin HFA] 2 puff INH Q6H PRN 11/18/17 [History] Gabapentin [Neurontin] 300 mg PO BID 11/18/17 [History] Nitroglycerin 0.4 mg SL ASDIRECTED PRN 11/18/17 [History] Lovastatin [Mevacor] 80 mg PO BEDTIME 11/21/17 [History] Fluticasone Propionate [Flonase] 1 spray LINDA BID 08/04/20 [History] Furosemide [Lasix] 20 mg PO BID 08/04/20 [History] Primidone [Mysoline] 100 mg PO BID 08/04/20 [History] Acetaminophen [Tylenol 8 Hour] 650 mg PO BID PRN 03/15/21 [History] Amiodarone [Cordarone] 100 mg PO DAILY 03/15/21 [History] Bisacodyl [Laxative Suppository] 10 mg RECTAL DAILY PRN 03/15/21 [History] Calcium Carbonate/Vitamin D3 [Calcium 600-Vit D3 400 Tablet] 1 tab PO BIDMEALS 03/15/21 [History] Denosumab [Prolia] 60 mg IM ASDIRECTED 03/15/21 [History] Docusate Sodium [Colace] 100 mg PO DAILY 03/15/21 [History] Docusate Sodium/Sennosides [Senna Plus] 2 tab PO DAILY PRN 03/15/21 [History] Ferrous Sulfate 325 mg PO DAILY 03/15/21 [History] Folic Acid 0.4 mg PO DAILY 03/15/21 [History] Losartan [Cozaar] 50 mg PO DAILY 03/15/21 [History] Melatonin 8 mg PO BEDTIME 03/15/21 [History] Menthol [Biofreeze] 1 applic TOP Q2HR PRN 03/15/21 [History] Menthol/Methyl Salicylate [Icy Hot] 1 applic TOP Q3HR PRN 03/15/21 [History] Metoprolol Tartrate [Lopressor] 25 mg PO BID 03/15/21 [History] Omeprazole 40 mg PO DAILY 03/15/21 [History] Potassium Chloride [Klor-Con M20] 20 meq PO WITHBREAKFAST 03/15/21 [History] Sodium Chloride 1 g PO DAILY 03/15/21 [History] amLODIPine Besylate [Norvasc] 5 mg PO BEDTIME 03/15/21 [History] buPROPion HCL [Wellbutrin Xl] 150 mg PO DAILY 03/16/21 [History] Lactobacillus Rhamnosus GG [Culturelle] 07/24/21 [History] Lactobacillus Rhamnosus GG [Culturelle] 1 cap PO DAILY 07/24/21 [History] Patient Handouts: Nonspecific Chest Pain, Adult, Oximetry Forms: ED Department Discharge Referrals: Tuan Koo MD [Primary Care Provider] - - Discharge Summary/Plan Comment DC Time >30 min.: No Total # of Minutes for Discharge Time: 25 Discharge Summary/Plan Comment: Cardiac stress test on Tuesday and follow-up with cardiology. - General Info Date of Service: 07/25/21 Admission Dx/Problem (Free Text: Admission Diagnosis/Problem Admission Diagnosis/Problem Chest pain Subjective Update: Patient states she is without chest pain. She denies any shortness of breath, headache, palpitations. She states that she feels good and would like to go home and follow-up for her stress test on Tuesday. Functional Status: Reports: Pain Controlled - Review of Systems General: Reports: No Symptoms HEENT: Reports: No Symptoms Pulmonary: Reports: No Symptoms Cardiovascular: Reports: No Symptoms Gastrointestinal: Reports: No Symptoms Musculoskeletal: Reports: No Symptoms - Patient Data Vitals - Most Recent: Last Vital Signs Temp 97.6 F 07/25/21 05:00 Pulse 54 L 07/25/21 09:02 Resp 16 07/25/21 05:00 BP 153/55 H 07/25/21 09:02 Pulse Ox 96 07/25/21 05:00 Weight - Most Recent: 142 lb 11.2 oz I&O - Last 24 hours: Intake & Output 07/24/21 07/25/21 07/25/21 22:59 06:59 14:59 Intake Total 250 1300 Output Total 200 1350 Balance 50 -50 Lab Results - Last 24 hrs: Laboratory Results - last 24 hr 07/24/21 07/24/21 07/24/21 Range/Units 10:44 12:54 12:54 WBC (3.98-10.04) K/mm3 RBC (3.98-5.22) M/mm3 Hgb (11.2-15.7) gm/dl Hct (34.1-44.9) % MCV (79.4-94.8) fl MCH (25.6-32.2) pg MCHC (32.2-35.5) g/dl RDW Std Deviation (36.4-46.3) fL Plt Count (182-369) K/mm3 MPV (9.4-12.3) fl Neut % (Auto) (34.0-71.1) % Lymph % (Auto) (19.3-51.7) % Irwin % (Auto) (4.7-12.5) % Eos % (Auto) (0.7-5.8) Baso % (Auto) (0.1-1.2) % Neut # (Auto) (1.56-6.13) K/mm3 Lymph # (Auto) (1.18-3.74) K/mm3 Irwin # (Auto) (0.24-0.36) K/mm3 Eos # (Auto) (0.04-0.36) K/mm3 Baso # (Auto) (0.01-0.08) K/mm3 Manual Slide Review Sodium (136-145) mEq/L Potassium (3.5-5.1) mEq/L Chloride (98-107) mEq/L Carbon Dioxide (21-32) mEq/L Anion Gap (5-15) BUN (7-18) mg/dL Creatinine (0.55-1.02) mg/dL Est Cr Clr Drug Dosing mL/min Estimated GFR (MDRD) (>60) mL/min BUN/Creatinine Ratio (14-18) Glucose (70-99) mg/dL Calcium (8.5-10.1) mg/dL Magnesium (1.8-2.4) mg/dL Total Bilirubin (0.2-1.0) mg/dL AST (15-37) U/L ALT (14-59) U/L Alkaline Phosphatase (46-116) U/L CK-MB (CK-2) 1.2 (0-3.6) ng/ml Troponin I < 0.017 (0.00-0.056) ng/mL Total Protein (6.4-8.2) g/dl Albumin (3.4-5.0) g/dl Globulin gm/dL Albumin/Globulin Ratio (1-2) SARS-CoV-2 RNA (IRMA) Negative (NEGATIVE) 07/25/21 07/25/21 Range/Units 06:00 06:06 WBC 8.64 (3.98-10.04) K/mm3 RBC 3.41 L (3.98-5.22) M/mm3 Hgb 10.9 L (11.2-15.7) gm/dl Hct 34.5 (34.1-44.9) % MCV 101.2 H (79.4-94.8) fl MCH 32.0 (25.6-32.2) pg MCHC 31.6 L (32.2-35.5) g/dl RDW Std Deviation 48.4 H (36.4-46.3) fL Plt Count 278 (182-369) K/mm3 MPV 10.6 (9.4-12.3) fl Neut % (Auto) 26.1 L (34.0-71.1) % Lymph % (Auto) 23.0 (19.3-51.7) % Irwin % (Auto) 47.5 H (4.7-12.5) % Eos % (Auto) 3.0 (0.7-5.8) Baso % (Auto) 0.3 (0.1-1.2) % Neut # (Auto) 2.25 (1.56-6.13) K/mm3 Lymph # (Auto) 1.99 (1.18-3.74) K/mm3 Irwin # (Auto) 4.10 H (0.24-0.36) K/mm3 Eos # (Auto) 0.26 (0.04-0.36) K/mm3 Baso # (Auto) 0.03 (0.01-0.08) K/mm3 Manual Slide Review Abnormal smear Sodium 139 (136-145) mEq/L Potassium 3.5 (3.5-5.1) mEq/L Chloride 97 L (98-107) mEq/L Carbon Dioxide 33 H (21-32) mEq/L Anion Gap 12.5 (5-15) BUN 8 (7-18) mg/dL Creatinine 0.6 (0.55-1.02) mg/dL Est Cr Clr Drug Dosing 47.45 mL/min Estimated GFR (MDRD) > 60 (>60) mL/min BUN/Creatinine Ratio 13.3 L (14-18) Glucose 92 (70-99) mg/dL Calcium 8.5 (8.5-10.1) mg/dL Magnesium 2.0 (1.8-2.4) mg/dL Total Bilirubin 0.2 (0.2-1.0) mg/dL AST 18 (15-37) U/L ALT 16 (14-59) U/L Alkaline Phosphatase 56 (46-116) U/L CK-MB (CK-2) (0-3.6) ng/ml Troponin I 0.018 (0.00-0.056) ng/mL Total Protein 6.5 (6.4-8.2) g/dl Albumin 3.3 L (3.4-5.0) g/dl Globulin 3.2 gm/dL Albumin/Globulin Ratio 1.0 (1-2) SARS-CoV-2 RNA (IRMA) (NEGATIVE) Med Orders - Current: Current Medications Acetaminophen (Acetaminophen 325 Mg Tab) 650 mg PO Q4H PRN PRN Reason: Pain (Mild 1-3)/fever Last Admin: 07/25/21 06:45 Dose: 650 mg Documented by: Albuterol (Albuterol 6.7 Gm Inhaler) 0 gm INH Q6H PRN PRN Reason: SOB/Cough Albuterol/Ipratropium (Albuterol/Ipratropium 3.0-0.5 Mg/3 Ml Neb Soln) 3 ml NEB Q6HRRT PRN PRN Reason: wheezing/SOB/cough Amiodarone HCl (Amiodarone 200 Mg Tab) 100 mg PO DAILY [facility] Last Admin: 07/25/21 09:01 Dose: 100 mg Documented by: Amlodipine Besylate (Amlodipine 5 Mg Tab) 5 mg PO BEDTIME [facility] Last Admin: 07/24/21 20:20 Dose: 5 mg Documented by: Aspirin (Aspirin 81 Mg Tab.Ec) 81 mg PO DAILY [facility] Last Admin: 07/25/21 08:39 Dose: 81 mg Documented by: Bisacodyl (Bisacodyl 10 Mg Supp) 10 mg RECTAL DAILY PRN PRN Reason: Constipation Bupropion HCl (Bupropion 150 Mg Tab.Er) 150 mg PO DAILY [facility] Last Admin: 07/25/21 08:42 Dose: 150 mg Documented by: Docusate Sodium (Docusate Sodium 100 Mg Cap) 100 mg PO DAILY [facility] Last Admin: 07/25/21 08:35 Dose: 100 mg Documented by: Enoxaparin Sodium (Enoxaparin 40 Mg/0.4 Ml Syringe) 40 mg SUBCUT DAILY [facility] Last Admin: 07/25/21 08:48 Dose: 40 mg Documented by: Ferrous Sulfate (Ferrous Sulfate 324 Mg Tab.Ec) 324 mg PO DAILY [facility] Last Admin: 07/25/21 08:36 Dose: 324 mg Documented by: Fluticasone Propionate (Fluticasone Propionate Nasal [place] 16 Gm Bottle) 0 gm LINDA BID [facility] Last Admin: 07/25/21 08:45 Dose: Not Given Documented by: Folic Acid (Folic Acid 1 Mg Tab) 0.5 mg PO DAILY [facility] Last Admin: 07/25/21 08:35 Dose: 0.5 mg Documented by: Furosemide (Furosemide 20 Mg Tab) 20 mg PO BID [facility] Last Admin: 07/25/21 08:36 Dose: 20 mg Documented by: Gabapentin (Gabapentin 300 Mg Cap) 300 mg PO BID [facility] Last Admin: 07/25/21 08:43 Dose: 300 mg Documented by: Losartan Potassium (Losartan 50 Mg Tab) 50 mg PO DAILY [facility] Last Admin: 07/25/21 09:01 Dose: 50 mg Documented by: Melatonin (Melatonin 3 Mg Tab) 6 mg PO BEDTIME [facility] Last Admin: 07/24/21 20:16 Dose: 6 mg Documented by: Methyl Salicylate (Menthol/Methyl Salicylate 85 Gm Tube) 0 gm TOP Q3H PRN PRN Reason: Pain Last Admin: 07/24/21 20:33 Dose: 1 applic Documented by: Metoprolol Tartrate (Metoprolol Tartrate 25 Mg Tab) 25 mg PO BID [facility] Last Admin: 07/25/21 09:02 Dose: 25 mg Documented by: Nitroglycerin (Nitroglycerin 0.4 Mg Tab.Sl) 0.4 mg SL Q5M PRN PRN Reason: Chest Pain Non-Formulary Medication (Lovastatin [Mevacor]) 80 mg PO BEDTIME [facility] Ondansetron HCl (Ondansetron 4 Mg/2 Ml Sdv) 4 mg IV Q6H PRN PRN Reason: Nausea/Vomiting Pantoprazole Sodium (Pantoprazole 40 Mg Tab.Cr) 40 mg PO DAILY@0700 [facility] Last Admin: 07/25/21 06:39 Dose: 40 mg Documented by: Potassium Chloride (Potassium Chloride 20 Meq Tab.Er) 20 meq PO WITHBREAKFAST [facility] Last Admin: 07/25/21 06:39 Dose: 20 meq Documented by: Primidone (Primidone 50 Mg Tab) 100 mg PO BID [facility] Last Admin: 07/25/21 08:41 Dose: 100 mg Documented by: Senna/Docusate Sodium (Docusate Sodium/Sennosides 50-8.6 Mg Tab) 2 tab PO DAILY PRN PRN Reason: Constipation Last Admin: 07/25/21 09:15 Dose: 2 tab Documented by: Sodium Chloride (Sodium Chloride 1 Gm Tab) 1 gm PO DAILY [facility] Last Admin: 07/25/21 08:47 Dose: 1 gm Documented by: Discontinued Medications Acetaminophen (Acetaminophen 325 Mg Tab) 650 mg PO NOW ONE Stop: 07/24/21 09:57 Last Admin: 07/24/21 10:01 Dose: 650 mg Documented by: - Exam General: Reports: Alert, Oriented HEENT: Reports: Pupils Equal, Mucous Membr. Moist/[place] Neck: Reports: Supple Lungs: Reports: Clear to Auscultation, Normal Respiratory Effort Cardiovascular: Reports: Regular Rate, Regular Rhythm, Murmurs GI/Abdominal Exam: Normal Bowel Sounds, Soft, Non-Tender, No Organomegaly, No Distention, No Abnormal Bruit, No Mass Extremities: Normal Inspection, Normal Range of Motion, Non-Tender, No Pedal Edema, Normal Capillary Refill Skin: Reports: Warm, Dry, Intact Psy/Mental Status: Reports: Alert, Normal Affect, Normal Mood
[2021-07-25 11:51] VITALS: BP 157/71; PULSE 53
== END 2021-07-25 12:38 | disposition home or self-care (01) ==
LOC: JD.ED 08:08 → INTOOBSV 10:33 → JD.MS 10:33
PROVIDERS: ADMIT Family Medicine; ATTEND Family Medicine
DX: R07.89 Other chest pain (principal); I25.10 Atherosclerotic heart disease of native coronary artery without angina pectoris; I10 Essential (primary) hypertension; I25.2 Old myocardial infarction; G47.30 Sleep apnea, unspecified; J45.909 Unspecified asthma, uncomplicated; K21.9 Gastro-esophageal reflux disease without esophagitis; E78.00 Pure hypercholesterolemia, unspecified; J96.11 Chronic respiratory failure with hypoxia; I48.0 Paroxysmal atrial fibrillation; F41.9 Anxiety disorder, unspecified; D72.821 Monocytosis (symptomatic); Z90.81 Acquired absence of spleen; Z99.81 Dependence on supplemental oxygen; Z79.82 Long term (current) use of aspirin; Z79.01 Long term (current) use of anticoagulants; Z98.890 Other specified postprocedural states; R06.02 Shortness of breath; Z86.16 Personal history of COVID-19; Z20.822 Contact with and (suspected) exposure to COVID-19
CPT/HCPCS: 36415; 71045; 80053; 82553; 83735; 83880; 84484; 85025; 85610; 93005; 94760; 96372; 97161; 99285; A9270; G0378; J1650; U0002; 93010; 99217; 99220

== ENCOUNTER 2021-11-28 17:17 | Emergency (ER) | payer MEDICARE, BC ==
[2021-11-28] MEDS ORDERED: Sodium Chloride 0.9% 10 ML Syringe FLUSH PRN (17:40)
[2021-11-28] MEDS ORDERED: Sodium Chloride 0.9% 1,000 ML IV SCH ×2 (18:00→21:00)
[2021-11-28 18:51] LABS: CORONAVIRUS COVID-19 NAA NEGATIVE (NEGATIVE)
[2021-11-28] MEDS ORDERED: Aspirin 81 MG Tab.Chew PO ONE (18:58)
[2021-11-28] MEDS ORDERED: cefTRIAXone 1 GM in Sodium Chloride 0.9% 100 ML IV ONE (18:58)
[2021-11-28] MEDS ORDERED: Furosemide 40 MG/4 ML VIAL IVPUSH ONE ×2 (19:17→19:29)
[2021-11-28 19:49] VITALS: PULSE 91
[2021-11-28] MEDS ORDERED: Iopamidol 755 Mg/ML 100 ML Bottle IVPUSH ONE (19:56)
[2021-11-28] MEDS ORDERED: Sodium Chloride 0.9% 100 ML IV ONE (19:56)
[2021-11-28] MEDS ORDERED: Heparin Sodium 5,000 Units/ML Vial IVPUSH ONE (20:38)
[2021-11-28] MEDS ORDERED: Heparin Sodium/D5W 25,000 UNITS/500 ML BAG IV SCH (20:45)
[2021-11-28] MEDS ORDERED: Heparin Sodium 5,000 Units/ML Vial IVPUSH STA (21:21)
[2021-11-28] MEDS ORDERED: Albuterol 0.083% 2.5 MG/3 ML Neb Soln NEB ONE (21:28)
[2021-11-28 22:53] VITALS: BP 120/37
== END 2021-11-28 22:14 ==
LOC: JD.ED 17:17 → SUPCPDRO 17:17 → JD.ED 22:14
DX: A41.9 Sepsis, unspecified organism (principal); I21.4 Non-ST elevation (NSTEMI) myocardial infarction; E87.2 Acidosis; R77.8 Other specified abnormalities of plasma proteins; I48.91 Unspecified atrial fibrillation; I25.10 Atherosclerotic heart disease of native coronary artery without angina pectoris; I10 Essential (primary) hypertension; I25.2 Old myocardial infarction; Z91.040 Latex allergy status; Z88.8 Allergy status to other drugs, medicaments and biological substances; Z79.82 Long term (current) use of aspirin; Z79.899 Other long term (current) drug therapy; Z20.822 Contact with and (suspected) exposure to COVID-19
CPT/HCPCS: 0241U; 36415; 71045; 71275; 80053; 81001; 83605; 83880; 84484; 85007; 85027; 85730; 86140; 87040; 93005; 94640; 96365; 96367; 96375; 99285; A9270; J0696; J1644; J1940; J7030; Q9967

== ENCOUNTER 2021-12-07 12:32 | Observation (INO) | payer MEDICARE, BC ==
[2021-12-07] MEDS ORDERED: Benzonatate 100 MG Cap PO ONE (13:57)
[2021-12-07] MEDS ORDERED: Furosemide 40 MG/4 ML VIAL IVPUSH ONE (14:17)
[2021-12-07] MEDS: Sodium Chloride 0.9% 10 ML Syringe FLUSH PRN (14:47)
[2021-12-07] MEDS ORDERED: Fluticasone NASAL Spray 16 GM Bottle NASBOTH PRN (17:25)
[2021-12-07] MEDS ORDERED: oxyCODONE 5 MG Tab PO PRN (17:35)
[2021-12-07] MEDS ORDERED: Albuterol/Ipratropium 3.0-0.5 MG/3 ML Neb Soln NEB PRN (17:35)
[2021-12-07] MEDS: Metoprolol Tartrate 25 MG Tab PO SCH (20:32)
[2021-12-07] MEDS: Gabapentin 300 MG Cap PO SCH (20:32)
[2021-12-07] MEDS: Codeine/guaiFENesin 10-100 MG/5 ML Syrup 5 ML Cup PO PRN (20:32)
[2021-12-07] MEDS ORDERED: amLODIPine 5 MG Tab PO SCH (21:00)
[2021-12-07] MEDS ORDERED: Warfarin 5 MG Tab PO ONE (22:12)
[2021-12-07] MEDS: Benzonatate 100 MG Cap PO PRN (22:20)
[2021-12-08] MEDS ORDERED: Levothyroxine 50 MCG Tab PO SCH (06:00)
[2021-12-08] MEDS: Codeine/guaiFENesin 10-100 MG/5 ML Syrup 5 ML Cup PO PRN ×3 (06:35→22:18)
[2021-12-08] MEDS ORDERED: Pantoprazole 40 MG Tab.CR PO SCH (07:00)
[2021-12-08] MEDS ORDERED: Amiodarone 200 MG Tab PO SCH (09:00)
[2021-12-08] MEDS ORDERED: predniSONE 20 MG Tab PO SCH (09:00)
[2021-12-08] MEDS ORDERED: Potassium Chloride 20 MEQ Tab.ER PO SCH (09:00)
[2021-12-08] MEDS ORDERED: Furosemide 40 MG Tab PO SCH (09:00)
[2021-12-08] MEDS ORDERED: Losartan 50 MG Tab PO SCH (09:00)
[2021-12-08] MEDS: Metoprolol Tartrate 25 MG Tab PO SCH (09:06)
[2021-12-08] MEDS: Aspirin 81 MG Tab.EC PO SCH (09:07)
[2021-12-08] MEDS: buPROPion 150 MG Tab.ER PO SCH (09:09)
[2021-12-08] MEDS: Gabapentin 300 MG Cap PO SCH (09:11)
[2021-12-08] MEDS: Tiotropium Bromide 4 GM Inhalation Spray (2.5mcg/1 dose; 10 doses) INH SCH (09:56)
[2021-12-08] MEDS: Acetaminophen 325 MG Tab PO PRN ×2 (11:39→22:14)
[2021-12-08] MEDS ORDERED: Digoxin 125 MCG Tab PO SCH (12:00)
[2021-12-08] MEDS ORDERED: Cefdinir 300 MG Cap PO SCH (12:15)
[2021-12-08] MEDS: Benzonatate 100 MG Cap PO PRN ×2 (14:48→20:42)
[2021-12-08] MEDS ORDERED: Lidocaine 4% 1 each Patch TOP PRN (15:32)
[2021-12-08] MEDS ORDERED: Iopamidol 755 Mg/ML 100 ML Bottle IVPUSH ONE (15:44)
[2021-12-08] MEDS ORDERED: Sodium Chloride 0.9% 10 ML Syringe FLUSH ONE (15:44)
[2021-12-08] MEDS ORDERED: Sodium Chloride 0.9% 100 ML IV SCH (15:45)
[2021-12-08] MEDS: Sodium Chloride 0.9% 10 ML Syringe FLUSH PRN (16:33)
[2021-12-08] MEDS ORDERED: Warfarin 2.5 MG Tab PO SCH (18:00)
[2021-12-08] MEDS: CEFDINIR 300 MG PO SCH (20:42)
[2021-12-08] MEDS: AMLODIPINE 5 MG PO SCH (20:42)
[2021-12-08] MEDS: GABAPENTIN 300 MG PO SCH (20:42)
[2021-12-08] MEDS: METOPROLOL TARTRATE 25 MG PO SCH (20:42)
[2021-12-09] MEDS: Levothyroxine 50 MCG Tab ** PATIENT'S OWN MED PO SCH (06:29)
[2021-12-09] MEDS: OMEPRAZOLE 40 MG PO SCH (06:30)
[2021-12-09] MEDS: Tiotropium Bromide 4 GM Inhalation Spray (2.5mcg/1 dose; 10 doses) INH SCH (08:15)
[2021-12-09] MEDS: Acetaminophen 325 MG Tab PO PRN ×2 (10:00→15:04)
[2021-12-09] MEDS: LOSARTAN 50 MG PO SCH (10:02)
[2021-12-09] MEDS: FUROSEMIDE 40 MG PO SCH (10:03)
[2021-12-09] MEDS: POTASSIUM CHLORIDE 20 MEQ PO SCH (10:05)
[2021-12-09] MEDS: Aspirin 81 MG Tab.EC PO SCH (10:05)
[2021-12-09] MEDS: METOPROLOL TARTRATE 25 MG PO SCH ×2 (10:05→20:14)
[2021-12-09] MEDS: GABAPENTIN 300 MG PO SCH ×2 (10:07→20:26)
[2021-12-09] MEDS: CEFDINIR 300 MG PO SCH ×2 (10:08→20:12)
[2021-12-09] MEDS: predniSONE 10 MG Tab **PTOM PO SCH (10:08)
[2021-12-09] MEDS: AMIODARONE 100 MG PO SCH (10:09)
[2021-12-09] MEDS: buPROPion 150 MG Tab.ER PO SCH (10:11)
[2021-12-09] MEDS ORDERED: RESTASIS EYE DROPS EYEBOTH PRN (11:45)
[2021-12-09] MEDS: DIGOXIN 125 MCG PO SCH (13:18)
[2021-12-09] MEDS ORDERED: Warfarin 3 MG Tab PO SCH (18:00)
[2021-12-09] MEDS: Benzonatate 100 MG Cap PO PRN (20:10)
[2021-12-09] MEDS: AMLODIPINE 5 MG PO SCH (20:13)
[2021-12-10] MEDS: Levothyroxine 50 MCG Tab ** PATIENT'S OWN MED PO SCH (05:34)
[2021-12-10] MEDS: OMEPRAZOLE 40 MG PO SCH (06:00)
[2021-12-10] MEDS ORDERED: METOPROLOL TARTRATE 25 MG PO ONE (07:30)
[2021-12-10] MEDS ORDERED: Aspirin 81 MG Tab.EC PO ONE (08:00)
[2021-12-10] MEDS: Tiotropium Bromide 4 GM Inhalation Spray (2.5mcg/1 dose; 10 doses) INH SCH (08:21)
[2021-12-10] MEDS ORDERED: Furosemide 20 MG/2 ML VIAL IVPUSH ONE (08:27)
[2021-12-10] MEDS: buPROPion 150 MG Tab.ER PO SCH (08:31)
[2021-12-10] MEDS: LOSARTAN 50 MG PO SCH (08:34)
[2021-12-10] MEDS: POTASSIUM CHLORIDE 20 MEQ PO SCH (08:35)
[2021-12-10] MEDS: FUROSEMIDE 40 MG PO SCH (08:40)
[2021-12-10] MEDS: CEFDINIR 300 MG PO SCH (08:40)
[2021-12-10] MEDS: GABAPENTIN 300 MG PO SCH (08:40)
[2021-12-10] MEDS: AMIODARONE 100 MG PO SCH (08:41)
[2021-12-10] MEDS: predniSONE 10 MG Tab **PTOM PO SCH (08:43)
[2021-12-10] MEDS: DIGOXIN 125 MCG PO SCH (11:19)
[2021-12-10 11:21] VITALS: PULSE 84
[2021-12-10 11:30] VITALS: BP 147/80
[2021-12-10] MEDS ORDERED: Warfarin 5 MG Tab PO SCH (18:00)
[2021-12-10] MEDS ORDERED: METOPROLOL TARTRATE 25 MG PO SCH (21:00)
[2021-12-11] MEDS ORDERED: Aspirin 81 MG Tab.EC PO SCH (09:00)
[2021-12-11] MEDS ORDERED: predniSONE 10 MG Tab **PTOM PO SCH (09:00)
[2021-12-14] MEDS ORDERED: predniSONE 10 MG Tab **PTOM PO SCH (09:00)
== END 2021-12-10 11:23 ==
LOC: JD.ED 12:32 → INTOOBSV 17:35 → JD.MS 17:35
PROVIDERS: ADMIT Internal Medicine; ATTEND Internal Medicine
DX: R07.89 Other chest pain (principal); R62.7 Adult failure to thrive; E78.00 Pure hypercholesterolemia, unspecified; F41.9 Anxiety disorder, unspecified; E03.9 Hypothyroidism, unspecified; I25.10 Atherosclerotic heart disease of native coronary artery without angina pectoris; I25.2 Old myocardial infarction; J45.901 Unspecified asthma with (acute) exacerbation; I11.0 Hypertensive heart disease with heart failure; I50.9 Heart failure, unspecified; I48.20 Chronic atrial fibrillation, unspecified; M19.90 Unspecified osteoarthritis, unspecified site; T14.8XXA Other injury of unspecified body region, initial encounter; K21.9 Gastro-esophageal reflux disease without esophagitis; I24.9 Acute ischemic heart disease, unspecified; J96.11 Chronic respiratory failure with hypoxia; D63.8 Anemia in other chronic diseases classified elsewhere; Z95.5 Presence of coronary angioplasty implant and graft; Z99.81 Dependence on supplemental oxygen; Z91.040 Latex allergy status; Z88.8 Allergy status to other drugs, medicaments and biological substances; Z88.1 Allergy status to other antibiotic agents; Z79.52 Long term (current) use of systemic steroids; Z79.890 Hormone replacement therapy; Z79.82 Long term (current) use of aspirin; Z79.01 Long term (current) use of anticoagulants; Z79.899 Other long term (current) drug therapy; Z20.822 Contact with and (suspected) exposure to COVID-19
CPT/HCPCS: 36415; 36600; 71045; 71046; 71275; 80053; 80061; 80162; 81001; 82553; 82607; 82747; 82803; 83540; 83605; 83735; 83880; 84100; 84439; 84443; 84484; 85014; 85025; 85379; 85610; 85730; 86140; 86340; 87040; 93005; 93971; 94640; 94760; 94761; 96374; 96376; 97110; 97116; 97161; 99285; A9270; G0378; J1940; J3490; J7512; Q9967; U0002; 93010

== ENCOUNTER 2022-01-24 19:03 | Emergency (ER) | payer MEDICARE, BC ==
[2022-01-24 19:15] VITALS: BP 174/81; PULSE 88
[2022-01-24] MEDS ORDERED: Ondansetron 4 MG/2 ML SDV IVPUSH ONE (19:57)
[2022-01-24] MEDS ORDERED: HYDROmorphone 0.5 MG/0.5 ML Syringe IVPUSH ONE (19:57)
[2022-01-24] MEDS ORDERED: Sodium Chloride 0.9% 1,000 ML IV SCH (20:00)
[2022-01-24] MEDS ORDERED: Orphenadrine 100 MG Tab.ER PO STA (21:31)
== END 2022-01-24 22:40 | disposition home or self-care (01) ==
LOC: JD.ED 19:03
DX: M62.830 Muscle spasm of back (principal); I25.10 Atherosclerotic heart disease of native coronary artery without angina pectoris; I25.2 Old myocardial infarction; K21.9 Gastro-esophageal reflux disease without esophagitis; I10 Essential (primary) hypertension; Z86.16 Personal history of COVID-19; Z79.899 Other long term (current) drug therapy; Z79.82 Long term (current) use of aspirin; Z79.01 Long term (current) use of anticoagulants; Z91.040 Latex allergy status; Z88.8 Allergy status to other drugs, medicaments and biological substances; Z88.1 Allergy status to other antibiotic agents
CPT/HCPCS: 74177; 96374; 96375; 99284; A9270; J1170; J2405; J7030

== ENCOUNTER 2022-06-26 16:12 | Inpatient (IN) | payer MEDICARE, BC ==
[2022-06-26] MEDS ORDERED: Sodium Chloride 0.9% 1,000 ML IV ONE ×2 (16:26→17:34)
[2022-06-26] MEDS ORDERED: Sodium Chloride 0.9% 10 ML Syringe FLUSH PRN (16:26)
[2022-06-26 17:38] LABS: CORONAVIRUS COVID-19 NAA NEGATIVE (NEGATIVE)
[2022-06-26] MEDS ORDERED: Piperacillin/Tazobactam 4.5 GM in Sodium Chloride 0.9% 100 ML IV ONE (18:41)
[2022-06-26] MEDS: Dextrose 5%-0.45% NaCl 1,000 ML IV SCH (22:35)
[2022-06-27] MEDS ORDERED: Piperacillin/Tazobactam 4.5 GM in Sodium Chloride 0.9% 100 ML IV SCH ×2 (02:45→09:00)
[2022-06-27] MEDS: Dextrose 5%-0.45% NaCl 1,000 ML IV SCH ×2 (07:15→17:10)
[2022-06-27] MEDS ORDERED: VANCOmycin 1.25 GM/250 ML 1.25 GM in Premix Bag 1 BAG IV ONE (07:45)
[2022-06-27] MEDS: Piperacillin/Tazobactam 4.5 GM in Sodium Chloride 0.9% 100 ML IV SCH ×2 (10:42→21:25)
[2022-06-27] MEDS: Heparin Sodium 5,000 Units/ML Vial SUBCUT SCH (17:12)
[2022-06-28] MEDS: Heparin Sodium 5,000 Units/ML Vial SUBCUT SCH (05:41)
[2022-06-28] MEDS: Piperacillin/Tazobactam 4.5 GM in Sodium Chloride 0.9% 100 ML IV SCH (08:12)
[2022-06-28] MEDS: Dextrose 5%-0.45% NaCl 1,000 ML IV SCH ×2 (08:12→18:38)
[2022-06-28] MEDS ORDERED: Morphine 10 MG/0.5 ML Oral Syringe PO PRN (16:02)
[2022-06-28] MEDS ORDERED: LORazepam 0.5 MG Tab PO PRN (16:03)
[2022-06-29] MEDS: Dextrose 5%-0.45% NaCl 1,000 ML IV SCH (04:40)
[2022-06-29] MEDS ORDERED: Dextrose 5%-0.45% NaCl 1,000 ML IV SCH (10:45)
[2022-06-29 21:34] VITALS: BP 153/89; PULSE 104
== END 2022-06-30 04:05 | disposition expired | DRG 871 ==
LOC: JD.ED 16:12 → SUPCPDRO 16:12 → JD.MS 18:41
PROVIDERS: ADMIT Pediatrics; ATTEND Pediatrics
DX: A41.02 Sepsis due to Methicillin resistant Staphylococcus aureus (principal); J96.21 Acute and chronic respiratory failure with hypoxia; E87.1 Hypo-osmolality and hyponatremia; N17.9 Acute kidney failure, unspecified; I48.20 Chronic atrial fibrillation, unspecified; G91.2 (Idiopathic) normal pressure hydrocephalus; N39.0 Urinary tract infection, site not specified; Z51.5 Encounter for palliative care; G47.30 Sleep apnea, unspecified; Z66 Do not resuscitate; R65.20 Severe sepsis without septic shock; E86.0 Dehydration; E87.5 Hyperkalemia; F03.90 Unspecified dementia, unspecified severity, without behavioral disturbance, psychotic disturbance, mood disturbance, and anxiety; I50.9 Heart failure, unspecified; K21.9 Gastro-esophageal reflux disease without esophagitis; E78.5 Hyperlipidemia, unspecified; M19.90 Unspecified osteoarthritis, unspecified site; Z88.1 Allergy status to other antibiotic agents; I11.0 Hypertensive heart disease with heart failure; J45.909 Unspecified asthma, uncomplicated; I25.10 Atherosclerotic heart disease of native coronary artery without angina pectoris; M81.0 Age-related osteoporosis without current pathological fracture; F41.9 Anxiety disorder, unspecified; Z91.81 History of falling; I48.0 Paroxysmal atrial fibrillation; F32.A Depression, unspecified; E03.9 Hypothyroidism, unspecified; D64.9 Anemia, unspecified; G93.89 Other specified disorders of brain; E78.00 Pure hypercholesterolemia, unspecified; G47.33 Obstructive sleep apnea (adult) (pediatric); Z20.822 Contact with and (suspected) exposure to COVID-19; K59.09 Other constipation; H54.7 Unspecified visual loss; Z96.651 Presence of right artificial knee joint; I25.2 Old myocardial infarction; Z90.81 Acquired absence of spleen; Z95.5 Presence of coronary angioplasty implant and graft; Z79.01 Long term (current) use of anticoagulants; Z86.16 Personal history of COVID-19; Z79.1 Long term (current) use of non-steroidal anti-inflammatories (NSAID); Z79.899 Other long term (current) drug therapy; Z79.82 Long term (current) use of aspirin; Z79.2 Long term (current) use of antibiotics; Z79.890 Hormone replacement therapy; Z91.040 Latex allergy status; Z88.8 Allergy status to other drugs, medicaments and biological substances; Z88.3 Allergy status to other anti-infective agents; Z97.3 Presence of spectacles and contact lenses; Z87.01 Personal history of pneumonia (recurrent); Z87.440 Personal history of urinary (tract) infections; Z99.81 Dependence on supplemental oxygen; Z87.448 Personal history of other diseases of urinary system; Z87.81 Personal history of (healed) traumatic fracture; Z85.828 Personal history of other malignant neoplasm of skin; Z98.42 Cataract extraction status, left eye; Z98.41 Cataract extraction status, right eye; Z98.890 Other specified postprocedural states; W05.0XXA Fall from non-moving wheelchair, initial encounter; Y92.89 Other specified places as the place of occurrence of the external cause
CPT/HCPCS: 0240U; 36415; 36600; 51702; 51798; 70450; 71045; 71250; 74176; 80048; 80053; 80202; 81001; 82803; 83605; 83735; 83880; 84484; 85007; 85027; 85610; 86140; 87040; 87641; 94761; 96361; 96365; 99285; 99285-25; J1644; J2543; J3370; J3490; J7030; J7042